=== PATIENT | female | born 1970 ===

== ENCOUNTER → 2020-08-27 08:37 | Outpatient (BNVA) | payer MEDICAID, SELFPAY | PROVIDERS: PCP Family Medicine; Referring Provider Family Medicine; Visit Provider Nurse Practitioner | DX: K59.04 Chronic idiopathic constipation (principal); R11.2 Nausea with vomiting, unspecified; K21.9 Gastro-esophageal reflux disease without esophagitis; Z79.899 Other long term (current) drug therapy | CPT/HCPCS: 99212 ==

== ENCOUNTER → 2020-09-22 07:42 | Outpatient (REF) | payer MEDICAID, SELFPAY ==
--- NOTE | 2020-09-22 07:47 | NM_ITS ---
EXAMINATION: DC RADIONUCLIDE SOLID FOOD GASTRIC EMPTYING 4-HOUR STUDY CLINICAL INFORMATION: Upper abdominal pain. COMPARISON CT scan of the abdomen and pelvis 05/08/2019. TECHNIQUE: A standard meal consisting of 4 oz of Egg Beaters brand tagged with 1.0 millicuries Tc-99m Sulfur Colloid, 8 oz water and 1 slice of toast with jelly was administered orally to the patient. Images were obtained using a dual head gamma camera in the anterior and posterior projections over of the stomach immediately post ingestion and at hourly intervals up to 4 hours post ingestion. The anterior and posterior counts at each time interval were averaged using the geometric mean and expressed as percentage of the immediate post ingestion counts. FINDINGS: There is good visualization of activity in the stomach immediately post ingestion. As the study progresses, there is good clearance of activity from the stomach and visualization of progressively increasing small bowel activity. By the end of the study, there is almost no retention noted in the stomach. Retention in the stomach at each time interval was: 1 hour 70% (normal 37%-90%) 2 hours 8% (normal 30%-60%) 3 hours 4% 4 hours not performed DC/DC gastric emptying study IMPRESSION: No abnormal retention of solid food is noted. Gastric emptying is more rapid than normal, a finding of uncertain clinical significance.
== END ==
LOC: HO.NUCMED 07:42
PROVIDERS: Visit Provider Nurse Practitioner
DX: R10.10 Upper abdominal pain, unspecified (principal); R11.2 Nausea with vomiting, unspecified
CPT/HCPCS: 78264; A9541

== ENCOUNTER 2020-09-28 09:41 | Outpatient (REF) | payer MEDICAID, SELFPAY | END 2020-09-28 09:42 | disposition home or self-care (01) | LOC: HO.LAB 09:41 | PROVIDERS: Visit Provider Obstetrics & Gynecology | DX: Z01.419 Encounter for gynecological examination (general) (routine) without abnormal findings (principal); R10.2 Pelvic and perineal pain | CPT/HCPCS: 87086 ==

== ENCOUNTER 2020-10-02 19:08 | Emergency (ER) | payer MEDICAID, SELFPAY ==
[2020-10-02 19:19] VITALS: BP 156/66; PULSE 91; RESP 18; TEMP 36.6; O2SAT 99; BMI 36.4
[2020-10-02 20:25] LABS: Glucose Urine UA NEG (NEG); Leukocyte Esterase Urine NEG (NEG); Nitrite Urine NEG (NEG); Specific Gravity - Urine >= 1.030 (1.005-1.025); Urine Blood TRACE (NEG); Urine Ketones NEG (NEG); Urine Protein NEG (NEG-TRACE)
[2020-10-02 20:27] LABS: Appearance Urine CLEAR; Color Urine YELLOW
[2020-10-02 20:30] LABS: Bacteria Urine TRACE /LPF; Squamous Epithelial Cell Urine 3+ /LPF; WBC Urine 0 /HPF (0-4)
--- NOTE | 2020-10-02 21:25 | CT_ITS ---
EXAMINATION: CT ABDOMEN AND PELVIS WITHOUT CONTRAST CLINICAL INFORMATION: Right-sided flank pain COMPARISON: 05/08/2019 TECHNIQUE: Multidetector volumetric imaging was performed from the superior aspect of the liver through the pubic symphysis. Sagittal and coronal reformatted images were obtained on the technologist's workstation. This CT examination was performed using dose optimization techniques as appropriate, variously including the following: *Automated exposure control *Adjustment of mA and/or kV according to patient size (this includes techniques or standardized protocols for targeted exams where dose is matched to indication/reason for exam; i.e. extremities or head) *Use of iterative reconstruction technique DLP: 70 mGy-cm FINDINGS: LUNG BASES: The visualized lung bases are unremarkable. LIVER, GALLBLADDER, AND BILIARY TREE: The liver is normal in size, shape, and attenuation. No focal hepatic lesion or biliary ductal dilatation is present. The gallbladder is unremarkable with no evidence of radiopaque gallstones, gallbladder wall thickening, or obvious pericholecystic inflammatory changes. PANCREAS: Unremarkable. SPLEEN: Unremarkable. ADRENAL GLANDS: Unremarkable. KIDNEYS AND URETERS: The kidneys are normal in size, shape, and attenuation. Some barely perceptible calculi are present. The largest on the right measuring under 2 mm in size in the right upper pole and the largest on the left measuring about 1 mm in size and left upper pole. No hydronephrosis or hydroureter. No perinephric stranding. BLADDER: Unremarkable. GASTROINTESTINAL TRACT: The small and large bowel are unremarkable. The appendix is absent, surgically removed. ABDOMINAL WALL: No significant hernia is appreciated. LYMPH NODES: Normal. VASCULAR: Unremarkable. PELVIC VISCERA: Phleboliths are noted in the pelvis. Status post hysterectomy. An abnormal adnexal mass or free intraperitoneal fluid is not seen. OSSEOUS STRUCTURES: Unremarkable. CT/CT abdomen pelvis wo con IMPRESSION: A cause for the patient's right flank pain has not been found. Nonobstructing tiny bilateral renal calculi are present.
--- NOTE | 2020-10-02 21:46 | ED.GENADULT ---
HPI - General Adult General Chief complaint: Abdominal Pain Stated complaint: Abdominal Pain Time Seen by Provider: 10/02/20 21:12 Source: patient Mode of arrival: ambulatory Limitations: no limitations History of Present Illness HPI narrative: patient comes to emergency room complaining of 2 weeks of right-sided flank pain radiating towards the right groin. Patient was hoping that the pain would go away. Patient was seen by her OBGYN for days ago, she was advised to follow up with Urology because there was blood in the urine. Patient states that she has an appointment with Urology for next week, however she could not tolerate the pain. Patient is known to have urethral lithiasis, patient states it feels about the same. MD complaint: Kidney stones Related Data Home Medications Medication Instructions Recorded Confirmed ondansetron HCl 4 mg tablet 4 mg PO Q6H 08/26/20 09/28/20 pantoprazole 40 mg tablet,delayed 40 mg PO BID tab 08/26/20 09/28/20 release Previous Rx's Medication Instructions Recorded ketorolac 10 mg PO TID 5 Days #15 tab 10/02/20 Allergies Allergy/AdvReac Type Severity Reaction Status Date / Time citalopram [From Celexa] AdvReac Mild ANXIETY Verified 10/02/20 19:18 divalproex sodium AdvReac Mild ANXIETY/JUM Verified 10/02/20 19:18 [From Depakote] PY olanzapine [From Zyprexa] AdvReac Mild ANXIETY Verified 10/02/20 19:18 paroxetine [From Paxil] AdvReac Mild ANXIETY Verified 10/02/20 19:18 Review of Systems Review of Systems: Constitutional : No Weight loss, No Fever, No Chills, No Night Sweats, No Fatigue, No Malaise ENT/Mouth : No Hearing loss, No Ear Pain, No Nasal Congestion, No Sinus Pain, No Hoarseness, No sore throat, No Rhinorrhea, No Swallowing Difficulty Eyes: No Eye Pain, No Swelling, No Redness, No Foreign Body, No Discharge, No Vision Changes Cardiovascular : No Chest Pain, No SOB, No Dyspnea on Exertion, No Orthopnea, No Edema, No Palpitations Respiratory : No Cough, No Sputum, No Wheezing, No Smoke Exposure, No Dyspnea Gastrointestinal : No Nausea, No Vomiting, No Diarrhea, No Constipation, complaining of right flank pain, radiating towards the right abdominal area and right inguinal area Genitourinary : no irregular bleeding, No Dysuria, No Urinary Frequency, No Hematuria, No Urinary Incontinence, No Urgency, No Flank Pain, No Urinary Flow Changes, No Hesitancy Musculoskeletal : No joint pain, No Myalgias, No Joint Swelling Skin : No Skin Lesions, No rash Neuro : No Weakness, No Numbness, No Paresthesias, No Loss of Consciousness, No Dizziness, No Headache Psych : No Anxiety/Panic, No Depression, No SI/HI/AH/VH, No Social Issues, Heme/Lymph: No Bruising, No Bleeding,No Lymphadenopathy Endocrine : No Polyuria, No Polydipsia, No Temperature Intolerance [facility] Past Medical History Surgical History History of appendectomy History of colonoscopy History of hernia repair History of hysterectomy Hx of endoscopy Family History Family History Father History of colon cancer Mother History of diabetes mellitus Social History Social History Alcohol intake: never Smoking Status: Never smoker Advance Directives: No Advance Directives Information Provided: Yes Sexual orientation: Straight/Heterosexual Gender identity: female Physical Exam Vital Signs: Vital Signs: Last Vital Signs Temp 98.9 F 10/02/20 22:02 Pulse 77 10/02/20 22:02 Resp 16 10/02/20 22:02 BP 129/69 10/02/20 22:02 Pulse Ox 97 10/02/20 22:02 Body Mass Index 36.4 Appearance: Alert. Oriented X3. mild distress, unable to sit comfortably, pacing around the room holding a hand in her right flank Eyes: Pupils equal, round and reactive to light. ENT: Pharynx normal. Neck: Normal inspection. Neck supple. No lymph nodes noted. No crepitus CVS: Normal heart rate and rhythm. Pulses normal. Normal S1 and S2 Respiratory: No respiratory distress. Breath sounds normal. No Wheezing. No rales Abdomen: complaining of mild suprapubic pain and right-sided flank pain Skin: Skin warm and dry. Normal skin color. Normal skin turgor. Extremities: No lower extremity edema. No lower extremity edema. No Lacerations. No Rash Neuro: Oriented X 3. No motor deficit. No sensory deficit. Moving all extermities. No slurred speech. Course Course Course Narrative: patient feeling better with IV treatment, I discussed with the patient the CT scan, it is possible that she may have passed a kidney stone which caused her symptoms. However at this time there is no visible stone traveling down the ureters. Patient has an appointment pending with Dr. Penaloza I discussed with the patient that she has had urine in her blood since approximately 2017. patient instructed that her next urology visit she should discuss with her urologist the possibility of getting a cystoscopy Medical Decision Making Lab Data Result diagrams: 10/02/20 21:49 10/02/20 21:49 Labs: Lab Results 10/02/20 10/02/20 10/02/20 Range/Units 20:19 21:49 21:49 WBC 8.7 (4.8-10.8) X10*3/uL RBC 4.28 (4.20-5.50) X10*6/uL Hgb 12.0 (12.0-16.0) g/dl Hct 37.3 (37-47) % MCV 87.1 (80-98) fL MCH 28.0 (27.0-33.0) pg MCHC 32.2 (31.0-35.0) g/dl RDW 13.2 (11.0-16.0) % Plt Count 305 (160-400) X10*3/uL MPV 8.8 L (9.4-12.3) fL Immature Gran % (Auto) 0.2 (0.0-0.4) % Neut % (Auto) 55.8 (45-73) % Lymph % (Auto) 34.1 (20-40) % [place] % (Auto) 6.8 (2-11) % Eos % (Auto) 2.9 (0-4) % Baso % (Auto) 0.2 (0-2) % Lymph # (Auto) 3.0 (1.2-4.9) X10*3/uL [place] # (Auto) 0.6 (0.1-1.2) X10*3/uL Eos # (Auto) 0.3 (0.0-0.4) X10*3/uL Baso # (Auto) 0.0 (0.0-0.2) X10*3/uL Abs Immat Gran (auto) 0.02 (0.00-0.03) X10*3/uL Absolute Neuts (auto) 4.9 (2.0-8.3) X10*3/uL Absolute Nucleated RBC 0.000 (0.0-0.012) X10*3/uL Nucleated RBC % (auto) 0.0 (0.0-0.2) /100WBC Sodium 137 (135-145) mmol/L Potassium 4.3 (3.3-5.1) mmol/l Chloride 102 (96-108) mmol/L Carbon Dioxide 28 (22-29) mmol/L Anion Gap 11 L (12-20) BUN 11 (9-16) mg/dL Creatinine 0.81 (0.5-1.4) mg/dL Estim Creat Clear Calc 102.7 Estimated GFR > 60 Random Glucose 101 (60-115) mg/dL Calcium 9.7 (8.4-10.2) mg/dL Total Bilirubin 0.4 (0.0-1.0) mg/dL Direct Bilirubin < 0.2 (0.0-0.5) mg/dL AST 13 (5-31) U/L ALT 15 (0-31) U/L Alkaline Phosphatase 78 (39-117) U/L Total Protein 7.0 (6.5-8.0) g/dL Albumin 4.1 (3.5-5.0) g/dL Urine Color YELLOW Urine Appearance CLEAR Urine pH 6.0 (5.0-8.0) Ur Specific [place] >= 1.030 H (1.005-1.025) Urine Protein NEG (NEG-TRACE) MG/DL Urine Glucose (UA) NEG (NEG) MG/DL Urine Ketones NEG (NEG) MG/DL Urine Blood TRACE (NEG) Urine Nitrite NEG (NEG) Ur Leukocyte Esterase NEG (NEG) Urine RBC 1-4 (0) /HPF Urine WBC 0 (0-4) /HPF Ur Squamous Epith Cells 3+ /LPF Urine Bacteria TRACE /LPF Urine Test NEGATIVE (NEGATIVE) Discharge Plan Discharge Clinical Impression: Flank pain, Abdominal pain Patient Disposition: Home, Self-Care Instructions: Flank Pain (ED) Prescriptions: New ketorolac 10 mg tablet 10 mg PO TID 5 Days Qty: 15 RF: 0 No Action pantoprazole [Protonix] 40 mg tablet,delayed release (DR/EC) 40 mg PO BID RF: 0 ondansetron HCl [Zofran] 4 mg tablet 4 mg PO Q6H RF: 0
[2020-10-02 21:53] LABS: MANUAL DIFF FLAG NO
[2020-10-02] MEDS: ondansetron HCL 4 MG/2 ML VIAL IVPUSH (21:54)
[2020-10-02] MEDS: Ketorolac Tromethamine 30 MG/ML VIAL IVPUSH (21:54)
[2020-10-02 21:58] LABS: Basophils Percent Auto 0.2 % (0-2); Eosinophils Absolute Auto 0.3 X10*3/uL (0.0-0.4); Eosinophils Percent Auto 2.9 % (0-4); Hematocrit 37.3 % (37-47); Imm Gran Abs Auto 0.02 X10*3/uL (0.00-0.03); Imm Gran Pct Auto 0.2 % (0.0-0.4); Lymphocytes Percent Auto 34.1 % (20-40); Mean Corpuscular HGB Conc 32.2 g/dl (31.0-35.0); Mean Corpuscular Volume 87.1 fL (80-98); Mean Platelet Volume 8.8 fL (9.4-12.3); Monocytes Absolute Auto 0.6 X10*3/uL (0.1-1.2); Monocytes Percent Auto 6.8 % (2-11); Neutrophils Absolute Auto 4.9 X10*3/uL (2.0-8.3); Neutrophils Percent Auto 55.8 % (45-73); Platelet Count 305 X10*3/uL (160-400); Red Blood Count 4.28 X10*6/uL (4.20-5.50); Red Cell Distribution Width 13.2 % (11.0-16.0); White Blood Count 8.7 X10*3/uL (4.8-10.8)
[2020-10-02 22:02] VITALS: BP 129/69; PULSE 77; RESP 16; TEMP 37.2; O2SAT 97
[2020-10-02 22:16] LABS: UPreg QC Valid YES; Urine Pregnancy NEGATIVE (NEGATIVE)
[2020-10-02 22:21] LABS: Alanine Aminotransferase 15 U/L (0-31); Albumin Level 4.1 g/dL (3.5-5.0); Alkaline Phosphatase 78 U/L (39-117); Anion Gap 11 (12-20); Aspartate Amino Transferase 13 U/L (5-31); Bilirubin Direct < 0.2 mg/dL (0.0-0.5); Bilirubin Total 0.4 mg/dL (0.0-1.0); Blood Urea Nitrogen 11 mg/dL (9-16); Calcium 9.7 mg/dL (8.4-10.2); Carbon Dioxide 28 mmol/L (22-29); Chloride 102 mmol/L (96-108); Creatinine Clr Calc Pharmacy 102.7; Estimated Glomerular Filt Rate > 60; Glucose Random 101 mg/dL (60-115); Potassium 4.3 mmol/l (3.3-5.1); Sodium 137 mmol/L (135-145)
== END 2020-10-02 23:54 | disposition home or self-care (01) ==
PROVIDERS: Emergency Provider Emergency Medicine; PCP Family Medicine
DX: R10.9 Unspecified abdominal pain (principal); Z87.442 Personal history of urinary calculi
CPT/HCPCS: 36415; 74176; 80048; 80076; 81001; 81025; 85025; 96374; 96375; 99284; J1885; J2405

== ENCOUNTER 2020-10-19 13:47 | Outpatient (REF) | payer MEDICAID, SELFPAY ==
--- NOTE | 2020-10-19 13:53 | US_ITS ---
EXAMINATION: US PELVIC COMPLETE US TRANSVAGINAL CLINICAL INFORMATION: Pelvic pain. COMPARISON: CT abdomen and pelvis without contrast 10/02/2020 TECHNIQUE: Transabdominal and transvaginal ultrasound of the pelvis is performed. FINDINGS: The uterus has been surgically removed and not visualized. The right ovary measures 2.6 x 1.8 x 2.1 cm and volume 5.3 mL. There are 2 anechoic cysts measuring 1.7 x 1.1 x 1.2 cm and 2.0 x 1.7 x 1.9 cm. Previously, the right ovary measured 2.6 x 1.5 x 2.9 cm. The left ovary measures 2.6 x 1.7 x 2.0 cm and volume 4.7 mL. There is an anechoic cyst measuring 2.5 x 1.1 x 1.6 cm. Previously, the left ovary measured 2.3 x 1.3 x 2.1 cm. There is no free fluid seen in the pelvis. US/US pelvic complete IMPRESSION: The uterus is not visualized consistent with history of hysterectomy. There are bilateral ovarian cysts. No solid mass seen in the adnexa. There is no free fluid in cul-de-sac.
--- NOTE | 2020-10-19 13:53 | US_ITS ---
EXAMINATION: US PELVIC COMPLETE US TRANSVAGINAL CLINICAL INFORMATION: Pelvic pain. COMPARISON: CT abdomen and pelvis without contrast 10/02/2020 TECHNIQUE: Transabdominal and transvaginal ultrasound of the pelvis is performed. FINDINGS: The uterus has been surgically removed and not visualized. The right ovary measures 2.6 x 1.8 x 2.1 cm and volume 5.3 mL. There are 2 anechoic cysts measuring 1.7 x 1.1 x 1.2 cm and 2.0 x 1.7 x 1.9 cm. Previously, the right ovary measured 2.6 x 1.5 x 2.9 cm. The left ovary measures 2.6 x 1.7 x 2.0 cm and volume 4.7 mL. There is an anechoic cyst measuring 2.5 x 1.1 x 1.6 cm. Previously, the left ovary measured 2.3 x 1.3 x 2.1 cm. There is no free fluid seen in the pelvis. US/US transvaginal IMPRESSION: The uterus is not visualized consistent with history of hysterectomy. There are bilateral ovarian cysts. No solid mass seen in the adnexa. There is no free fluid in cul-de-sac.
== END 2020-10-19 13:48 | disposition home or self-care (01) ==
LOC: HO.US 13:47
PROVIDERS: Visit Provider Obstetrics & Gynecology
DX: R10.2 Pelvic and perineal pain (principal)
CPT/HCPCS: 76830; 76856

== ENCOUNTER → 2020-10-27 15:29 | Outpatient (BNVA) | payer MEDICAID, SELFPAY | PROVIDERS: PCP Family Medicine; Visit Provider Nurse Practitioner | DX: Z76.89 Persons encountering health services in other specified circumstances (principal) ==

== ENCOUNTER → 2020-11-04 10:57 | Outpatient (BNVA) | payer MEDICAID, SELFPAY | PROVIDERS: PCP Family Medicine; Visit Provider Obstetrics & Gynecology | DX: Z76.89 Persons encountering health services in other specified circumstances (principal) ==

== ENCOUNTER 2021-01-17 09:00 | Outpatient (RCR) | payer MEDICAID, SELFPAY | END 2021-02-04 15:13 | disposition other institution (70) | LOC: HO.PT 09:00 | PROVIDERS: PCP Family Medicine; Visit Provider Family Medicine | DX: M75.41 Impingement syndrome of right shoulder (principal) | CPT/HCPCS: 97110; 97112; 97140; 97161 ==

== ENCOUNTER 2021-02-28 16:08 | Emergency (ER) | payer MEDICAID, SELFPAY ==
--- NOTE | ~2021-02-28 | CT_ITS ---
EXAMINATION: CT ABDOMEN AND PELVIS WITHOUT CONTRAST CLINICAL INFORMATION: Left flank pain with history of kidney stones COMPARISON: None TECHNIQUE: Multidetector volumetric imaging was performed from the superior aspect of the liver through the pubic symphysis. Sagittal and coronal reformatted images were obtained on the technologist's workstation. This CT examination was performed using dose optimization techniques as appropriate, variously including the following: *Automated exposure control *Adjustment of mA and/or kV according to patient size (this includes techniques or standardized protocols for targeted exams where dose is matched to indication/reason for exam; i.e. extremities or head) *Use of iterative reconstruction technique DLP: 796 mGy-cm FINDINGS: LUNG BASES: Some new bibasilar atelectasis is present. LIVER, GALLBLADDER, AND BILIARY TREE: The liver is normal in size, shape, and attenuation. No focal hepatic lesion or biliary ductal dilatation is present. The gallbladder is unremarkable with no evidence of radiopaque gallstones, gallbladder wall thickening, or obvious pericholecystic inflammatory changes. PANCREAS: Unremarkable. SPLEEN: Unremarkable. ADRENAL GLANDS: Unremarkable. KIDNEYS AND URETERS: The kidneys are normal in size, shape, and attenuation. A few barely perceptible punctate calcifications bilaterally. No hydronephrosis, hydroureter, or ureteral calculi seen. No perinephric stranding. BLADDER: Unremarkable. GASTROINTESTINAL TRACT: The small and large bowel are unremarkable. The appendix is is not seen and may have been removed. ABDOMINAL WALL: No significant hernia is appreciated. LYMPH NODES: No retroperitoneal lymphadenopathy. VASCULAR: Unremarkable. PELVIC VISCERA: Patient appears to be status post hysterectomy. An abnormal adnexal mass or free intraperitoneal fluid is not seen. OSSEOUS STRUCTURES: Unremarkable. CT/CT abdomen pelvis wo con IMPRESSION: A cause for the patient's left flank pain has not been found. Again seen are some tiny barely perceptible bilateral nonobstructing intrarenal calculi.
[2021-02-28 16:23] VITALS: BP 119/87; PULSE 99; RESP 17; TEMP 36.6; O2SAT 97; BMI 38.2
[2021-02-28 19:47] LABS: MANUAL DIFF FLAG NO
[2021-02-28 19:49] LABS: Basophils Percent Auto 0.3 % (0-2); Eosinophils Absolute Auto 0.1 X10*3/uL (0.0-0.4); Eosinophils Percent Auto 0.6 % (0-4); Hematocrit 41.4 % (37-47); Imm Gran Abs Auto 0.03 X10*3/uL (0.00-0.03); Imm Gran Pct Auto 0.3 % (0.0-0.4); Lymphocytes Absolute Auto 2.9 X10*3/uL (1.2-4.9); Lymphocytes Percent Auto 25.2 % (20-40); Mean Corpuscular HGB Conc 31.4 g/dl (31.0-35.0); Mean Platelet Volume 8.6 fL (9.4-12.3); Monocytes Absolute Auto 0.8 X10*3/uL (0.1-1.2); Monocytes Percent Auto 7.1 % (2-11); Neutrophils Absolute Auto 7.5 X10*3/uL (2.0-8.3); Neutrophils Percent Auto 66.5 % (45-73); Platelet Count 362 X10*3/uL (160-400); Red Blood Count 4.65 X10*6/uL (4.20-5.50); Red Cell Distribution Width 13.2 % (11.0-16.0); White Blood Count 11.3 X10*3/uL (4.8-10.8)
[2021-02-28 19:51] LABS: Glucose Urine UA NEG (NEG); Leukocyte Esterase Urine NEG (NEG); Nitrite Urine NEG (NEG); Urine Blood TRACE (NEG); Urine Ketones NEG (NEG); Urine Protein NEG (NEG-TRACE)
[2021-02-28 19:53] LABS: Appearance Urine CLEAR; Color Urine YELLOW
--- NOTE | 2021-02-28 20:02 | PC.NURSE ---
Pt moved from the waiting room into room 20. Labs and UA obtained previously. Pt primarily Ukrainian speaking only, resting in bed, awaiting primary MD melendrez.
[2021-02-28 20:03] LABS: Squamous Epithelial Cell Urine TRACE /LPF; WBC Urine 0-2 /HPF (0-4)
[2021-02-28 20:08] LABS: Alanine Aminotransferase 15 U/L (0-31); Albumin Level 4.3 g/dL (3.5-5.0); Alkaline Phosphatase 82 U/L (39-117); Anion Gap 11 (12-20); Aspartate Amino Transferase 14 U/L (5-31); Bilirubin Total 0.3 mg/dL (0.0-1.0); Blood Urea Nitrogen 15 mg/dL (9-16); Calcium 9.7 mg/dL (8.4-10.2); Carbon Dioxide 30 mmol/L (22-29); Chloride 102 mmol/L (96-108); Creatinine Clr Calc Pharmacy 78.3; Estimated Glomerular Filt Rate 54; Glucose Random 101 mg/dL (60-115); Potassium 4.2 mmol/L (3.3-5.1); Sodium 139 mmol/L (135-145); Total Protein 7.6 g/dL (6.5-8.0)
[2021-02-28 20:34] VITALS: BP 119/68; PULSE 74; RESP 16; O2SAT 99
--- NOTE | 2021-02-28 20:39 | PC.NURSE ---
IV established, VSS. Pt awaiting primary MD eval.
--- NOTE | 2021-02-28 21:01 | ED.ABDPAIN ---
HPI - Abdominal Pain General Chief Complaint: Abdominal Pain Stated Complaint: flank pain Time Seen by Provider: 02/28/21 20:49 Source: patient Mode of arrival: ambulatory Limitations: no limitations History of Present Illness HPI narrative: Patient comes to emergency room complaining left flank pain and diffuse abdominal cramping. Patient states that it started yesterday afternoon. Initially in triage, patient stated that she has had dysuria, however she denied dysuria and hematuria to me. Patient states that the color of the urine is different, states she is unable to explain how it looks, denies hematuria, denies sediments. Patient denies fever and chills MD elicited complaint: flank pain Related Data Home Medications Medication Instructions Recorded Confirmed ondansetron HCl 4 mg tablet 4 mg PO Q6H 08/26/20 11/04/20 pantoprazole 40 mg tablet,delayed 40 mg PO BID tab 08/26/20 11/04/20 release Previous Rx's Medication Instructions Recorded ketorolac 10 mg PO TID 5 Days #15 tab 10/02/20 dicyclomine 20 mg tablet 20 mg PO QID #120 tab 10/27/20 linaclotide 72 mcg capsule 72 mcg PO QAM #30 cap 10/27/20 hyoscyamine sulfate 0.25 mg PO QID PRN #10 tab 02/28/21 Allergies Allergy/AdvReac Type Severity Reaction Status Date / Time citalopram [From Celexa] AdvReac Mild ANXIETY Verified 02/28/21 16:23 divalproex sodium AdvReac Mild ANXIETY/JUM Verified 02/28/21 16:23 [From Depakote] PY olanzapine [From Zyprexa] AdvReac Mild ANXIETY Verified 02/28/21 16:23 paroxetine [From Paxil] AdvReac Mild ANXIETY Verified 02/28/21 16:23 Review of Systems Review of Systems Constitutional : No Weight loss, No Fever, No Chills, No Night Sweats, No Fatigue, No Malaise ENT/Mouth : No Hearing loss, No Ear Pain, No Nasal Congestion, No Sinus Pain, No Hoarseness, No sore throat, No Rhinorrhea, No Swallowing Difficulty Eyes: No Eye Pain, No Swelling, No Redness, No Foreign Body, No Discharge, No Vision Changes Cardiovascular : No Chest Pain, No SOB, No Dyspnea on Exertion, No Orthopnea, No Edema, No Palpitations Respiratory : No Cough, No Sputum, No Wheezing, No Smoke Exposure, No Dyspnea Gastrointestinal : Complaining of Nausea, No Vomiting, No Diarrhea, No Constipation, complaining left upper and lower quadrant pain and left flank pain, No Hematochezia, No Melena Genitourinary : no irregular bleeding, No Dysuria, No Urinary Frequency, No Hematuria, No Urinary Incontinence, No Urgency, No Flank Pain, No Urinary Flow Changes, No Hesitancy Musculoskeletal : No joint pain, No Myalgias, No Joint Swelling Skin : No Skin Lesions, No rash Neuro : No Weakness, No Numbness, No Paresthesias, No Loss of Consciousness, No Dizziness, No Headache Psych : No Anxiety/Panic, No Depression, No SI/HI/AH/VH, No Social Issues, Heme/Lymph: No Bruising, No Bleeding,No Lymphadenopathy Endocrine : No Polyuria, No Polydipsia, No Temperature Intolerance Physical Exam Vital Signs: Vital Signs: Last Vital Signs Temp 97.9 F 02/28/21 16:23 Pulse 74 02/28/21 20:34 Resp 16 02/28/21 20:34 BP 119/68 02/28/21 20:34 Pulse Ox 99 02/28/21 20:34 Body Mass Index 38.2 Appearance: Alert. Oriented X3. No acute distress. Eyes: Pupils equal, round and reactive to light. ENT: Pharynx normal. Neck: Normal inspection. Neck supple. No lymph nodes noted. No crepitus CVS: Normal heart rate and rhythm. Pulses normal. Normal S1 and S2 Respiratory: No respiratory distress. Breath sounds normal. No Wheezing. No rales Abdomen: Soft , moderate tenderness to deep palpation on left upper and lower quadrant, positive CVA tenderness on the left side. No rigidity. No distention. Skin: Skin warm and dry. Normal skin color. Normal skin turgor. Extremities: No lower extremity edema. No lower extremity edema. No Lacerations. No Rash Neuro: Oriented X 3. No motor deficit. No sensory deficit. Moving all extermities. No slurred speech. Course Course Course Narrative: Patient states that she feels better after the IV medication Patient's urine is negative for UTI, CT scan unremarkable. Patient likely having a mild viral infection causing her to have abdominal cramping. MDM - Abdominal Pain Lab Data Result diagrams: 02/28/21 19:37 02/28/21 19:37 Labs: Lab Results 02/28/21 02/28/21 02/28/21 Range/Units 19:37 19:37 19:37 WBC 11.3 H (4.8-10.8) X10*3/uL RBC 4.65 (4.20-5.50) X10*6/uL Hgb 13.0 (12.0-16.0) g/dl Hct 41.4 (37-47) % MCV 89.0 (80-98) fL MCH 28.0 (27.0-33.0) pg MCHC 31.4 (31.0-35.0) g/dl RDW 13.2 (11.0-16.0) % Plt Count 362 (160-400) X10*3/uL MPV 8.6 L (9.4-12.3) fL Immature Gran % (Auto) 0.3 (0.0-0.4) % Neut % (Auto) 66.5 (45-73) % Lymph % (Auto) 25.2 (20-40) % [place] % (Auto) 7.1 (2-11) % Eos % (Auto) 0.6 (0-4) % Baso % (Auto) 0.3 (0-2) % Lymph # (Auto) 2.9 (1.2-4.9) X10*3/uL [place] # (Auto) 0.8 (0.1-1.2) X10*3/uL Eos # (Auto) 0.1 (0.0-0.4) X10*3/uL Baso # (Auto) 0.0 (0.0-0.2) X10*3/uL Abs Immat Gran (auto) 0.03 (0.00-0.03) X10*3/uL Absolute Neuts (auto) 7.5 (2.0-8.3) X10*3/uL Absolute Nucleated RBC 0.000 (0.0-0.012) X10*3/uL Nucleated RBC % (auto) 0.0 (0.0-0.2) /100WBC Hold Blue Top SEE NOTE Sodium 139 (135-145) mmol/L Potassium 4.2 (3.3-5.1) mmol/L Chloride 102 (96-108) mmol/L Carbon Dioxide 30 H (22-29) mmol/L Anion Gap 11 L (12-20) BUN 15 (9-16) mg/dL Creatinine 1.09 (0.5-1.4) mg/dL Estim Creat Clear Calc 78.3 Estimated GFR 54 Random Glucose 101 (60-115) mg/dL Calcium 9.7 (8.4-10.2) mg/dL Total Bilirubin 0.3 (0.0-1.0) mg/dL AST 14 (5-31) U/L ALT 15 (0-31) U/L Alkaline Phosphatase 82 (39-117) U/L Total Protein 7.6 (6.5-8.0) g/dL Albumin 4.3 (3.5-5.0) g/dL Urine Color Urine Appearance Urine pH (5.0-8.0) Ur Specific [place] (1.005-1.025) Urine Protein (NEG-TRACE) MG/DL Urine Glucose (UA) (NEG) MG/DL Urine Ketones (NEG) MG/DL Urine Blood (NEG) Urine Nitrite (NEG) Ur Leukocyte Esterase (NEG) Urine RBC (0) /HPF Urine WBC (0-4) /HPF Ur Squamous Epith Cells /LPF Urine Bacteria /LPF Urine Test (NEGATIVE) 02/28/21 02/28/21 Range/Units 19:43 19:43 WBC (4.8-10.8) X10*3/uL RBC (4.20-5.50) X10*6/uL Hgb (12.0-16.0) g/dl Hct (37-47) % MCV (80-98) fL MCH (27.0-33.0) pg MCHC (31.0-35.0) g/dl RDW (11.0-16.0) % Plt Count (160-400) X10*3/uL MPV (9.4-12.3) fL Immature Gran % (Auto) (0.0-0.4) % Neut % (Auto) (45-73) % Lymph % (Auto) (20-40) % [place] % (Auto) (2-11) % Eos % (Auto) (0-4) % Baso % (Auto) (0-2) % Lymph # (Auto) (1.2-4.9) X10*3/uL [place] # (Auto) (0.1-1.2) X10*3/uL Eos # (Auto) (0.0-0.4) X10*3/uL Baso # (Auto) (0.0-0.2) X10*3/uL Abs Immat Gran (auto) (0.00-0.03) X10*3/uL Absolute Neuts (auto) (2.0-8.3) X10*3/uL Absolute Nucleated RBC (0.0-0.012) X10*3/uL Nucleated RBC % (auto) (0.0-0.2) /100WBC Hold Blue Top Sodium (135-145) mmol/L Potassium (3.3-5.1) mmol/L Chloride (96-108) mmol/L Carbon Dioxide (22-29) mmol/L Anion Gap (12-20) BUN (9-16) mg/dL Creatinine (0.5-1.4) mg/dL Estim Creat Clear Calc Estimated GFR Random Glucose (60-115) mg/dL Calcium (8.4-10.2) mg/dL Total Bilirubin (0.0-1.0) mg/dL AST (5-31) U/L ALT (0-31) U/L Alkaline Phosphatase (39-117) U/L Total Protein (6.5-8.0) g/dL Albumin (3.5-5.0) g/dL Urine Color YELLOW Urine Appearance CLEAR Urine pH 6.0 (5.0-8.0) Ur Specific [place] 1.020 (1.005-1.025) Urine Protein NEG (NEG-TRACE) MG/DL Urine Glucose (UA) NEG (NEG) MG/DL Urine Ketones NEG (NEG) MG/DL Urine Blood TRACE (NEG) Urine Nitrite NEG (NEG) Ur Leukocyte Esterase NEG (NEG) Urine RBC 1-4 (0) /HPF Urine WBC 0-2 (0-4) /HPF Ur Squamous Epith Cells TRACE /LPF Urine Bacteria NONE /LPF Urine Test NEGATIVE (NEGATIVE) Imaging Data CT scan - abdomen: Radiologist's impression: FINDINGS: LUNG BASES: Some new bibasilar atelectasis is present. LIVER, GALLBLADDER, AND BILIARY TREE: The liver is normal in size, shape, and attenuation. No focal hepatic lesion or biliary ductal dilatation is present. The gallbladder is unremarkable with no evidence of radiopaque gallstones, gallbladder wall thickening, or obvious pericholecystic inflammatory changes. PANCREAS: Unremarkable. SPLEEN: Unremarkable. ADRENAL GLANDS: Unremarkable. KIDNEYS AND URETERS: The kidneys are normal in size, shape, and attenuation. A few barely perceptible punctate calcifications bilaterally. No hydronephrosis, hydroureter, or ureteral calculi seen. No perinephric stranding. BLADDER: Unremarkable. GASTROINTESTINAL TRACT: The small and large bowel are unremarkable. The appendix is is not seen and may have been removed. ABDOMINAL WALL: No significant hernia is appreciated. LYMPH NODES: No retroperitoneal lymphadenopathy. VASCULAR: Unremarkable. PELVIC VISCERA: Patient appears to be status post hysterectomy. An abnormal adnexal mass or free intraperitoneal fluid is not seen. OSSEOUS STRUCTURES: Unremarkable. CT/CT abdomen pelvis wo con IMPRESSION: A cause for the patient's left flank pain has not been found. Again seen are some tiny barely perceptible bilateral nonobstructing intrarenal calculi. Discharge Plan Discharge Clinical Impression: Acute left flank pain Abdominal pain Qualifiers: Abdominal location: unspecified location Qualified Code(s): R10.9 - Unspecified abdominal pain Patient Disposition: Home, Self-Care Instructions: Abdominal Pain (ED), Flank Pain (ED) Additional Instructions: Please follow-up with your primary care physician tomorrow. If you have any worsening or new symptoms, please return to the emergency room or call 911 Prescriptions: New hyoscyamine sulfate 0.125 mg tablet 0.25 mg PO QID PRN (Reason: dyspepsia) Qty: 10 RF: 0 No Action ketorolac 10 mg tablet 10 mg PO TID 5 Days Qty: 15 RF: 0 pantoprazole [Protonix] 40 mg tablet,delayed release (DR/EC) 40 mg PO BID RF: 0 ondansetron HCl [Zofran] 4 mg tablet 4 mg PO Q6H RF: 0 dicyclomine 20 mg tablet 20 mg PO QID Qty: 120 RF: 4 Linzess 72 mcg capsule 72 mcg PO QAM Qty: 30 RF: 4 PMFSH Past Medical History Surgical History History of appendectomy History of colonoscopy History of hernia repair History of hysterectomy Hx of endoscopy Family History Family History Father History of colon cancer Mother History of diabetes mellitus Social History Social History Alcohol intake: never Smoking Status: Never smoker Advance Directives: No Advance Directives Information Provided: No Sexual orientation: Straight/Heterosexual Gender identity: female
[2021-02-28 21:11] LABS: UPreg QC Valid YES; Urine Pregnancy NEGATIVE (NEGATIVE)
[2021-02-28] MEDS: Ketorolac Tromethamine 30 MG/ML VIAL IVPUSH (21:14)
[2021-02-28] MEDS: ondansetron HCL 4 MG/2 ML VIAL IVPUSH (21:14)
--- NOTE | 2021-02-28 21:16 | PC.NURSE ---
Pt medicated per DEC. Awaiting results of the CT. Continue to monitor.
[2021-02-28 23:02] VITALS: BP 132/86; PULSE 75; RESP 16; O2SAT 98
== END 2021-02-28 23:03 | disposition home or self-care (01) ==
PROVIDERS: Emergency Provider Emergency Medicine; PCP Family Medicine
DX: R10.9 Unspecified abdominal pain (principal); Z79.899 Other long term (current) drug therapy
CPT/HCPCS: 36415; 74176; 80053; 81001; 81025; 85025; 96374; 96375; 99284; J1885; J2405

== ENCOUNTER 2021-03-15 15:22 | Outpatient (REF) | payer MEDICAID, SELFPAY ==
--- NOTE | ~2021-03-15 | US_ITS ---
EXAMINATION: US RETROPERITONEAL LIMITED (RENAL ONLY) CLINICAL INFORMATION: Calculus of kidney. COMPARISON: CT abdomen and pelvis 02/28/2021. Renal ultrasound 11/06/2019 and 04/21/2019. X-ray abdomen KUB 12/30/2018. TECHNIQUE: Real-time imaging of the kidneys. FINDINGS: RIGHT KIDNEY: 11.9 x 4.6 x 3.7 cm (SAG x AP x TRV). The kidney is normal in size, contour, and echogenicity. Renal cortical thickness is normal. No calculi or focal parenchymal lesions. No hydronephrosis. LEFT KIDNEY: 10.1 x 5.1 x 4.8 cm (SAG x AP x TRV). The kidney is normal in size, contour, and echogenicity. Renal cortical thickness is normal. No calculi or focal parenchymal lesions. No hydronephrosis. US/US renal BI IMPRESSION: No stone appreciated by ultrasound.
== END 2021-03-15 15:23 | disposition home or self-care (01) ==
LOC: HO.US 15:22
PROVIDERS: Visit Provider Family Medicine
DX: N20.0 Calculus of kidney (principal)
CPT/HCPCS: 76775

== ENCOUNTER 2021-04-25 14:02 | Outpatient (REF) | payer MEDICAID, SELFPAY ==
--- NOTE | ~2021-04-25 | US_ITS ---
EXAMINATION: US RETROPERITONEAL LIMITED (RENAL ONLY) CLINICAL INFORMATION: Stones. COMPARISON: Ultrasound renal 03/15/2021 and 11/06/2019. CT abdomen pelvis 02/28/2021. X-ray KUB 12/30/2018 and 05/22/2017. TECHNIQUE: Real-time imaging of the kidneys. FINDINGS: RIGHT KIDNEY: 11.4 x 5.1 x 5.2 cm (SAG x AP x TRV). The kidney is normal in size, contour, and echogenicity. Renal cortical thickness is normal. No calculi or focal parenchymal lesions. No hydronephrosis. There is an area of cortical thinning in the upper pole probably representing a parenchymal junctional defect. LEFT KIDNEY: 11.5 x 5.1 x 5.0 cm (SAG x AP x TRV). The kidney is normal in size, contour, and echogenicity. Renal cortical thickness is normal. No calculi or focal parenchymal lesions. No hydronephrosis. US/US renal BI IMPRESSION: No stone seen by ultrasound.
== END 2021-04-25 14:03 | disposition home or self-care (01) ==
LOC: HO.US 14:02
PROVIDERS: Visit Provider Urology
DX: Z87.442 Personal history of urinary calculi (principal)
CPT/HCPCS: 76775

== ENCOUNTER → 2021-06-17 13:56 | Outpatient (BNVA) | payer MEDICAID, SELFPAY | PROVIDERS: PCP Family Medicine; Visit Provider Urology ==

== ENCOUNTER 2021-08-02 16:05 | Outpatient (REF) | payer MEDICAID, SELFPAY ==
--- NOTE | ~2021-08-02 | MM_ITS ---
EXAMINATION: MM SCREENING DIGITAL BREAST TOMOSYNTHESIS, BILATERAL CLINICAL INFORMATION: Screening. Asymptomatic. The lifetime risk of breast cancer based on the Tyrer-Cuzick Model is 11%. COMPARISON: Mammography: 02/25/2018, 02/05/2017, 01/07/2016, 12/30/2015 TECHNIQUE: Digital breast tomosynthesis is performed in both the craniocaudal and mediolateral oblique views along with computer-aided detection (CAD). Synthesized 2D images are generated from the tomosynthesis. FINDINGS: There are scattered areas of fibroglandular density (ACR BI-RADS breast composition Category b). There are no significant masses, abnormal calcifications, or other abnormalities. Parenchymal pattern is similar to prior exam. Oval parenchymal asymmetry posterior outer right breast on CC view is stable. There are benign regional rim calcifications anterior upper outer left breast. The axilla and skin contours are unremarkable. MM/MM tomosynthesis screening BI IMPRESSION: No mammographic evidence of malignancy. ASSESSMENT: BI-RADS 2: Benign RECOMMENDATION: Routine annual mammography screening. This patient's information was entered into a reminder system with a target due date for their next mammogram.
== END 2021-08-02 16:06 | disposition home or self-care (01) ==
LOC: HO.MAMMO 16:05
PROVIDERS: Visit Provider Family Medicine
DX: Z12.31 Encounter for screening mammogram for malignant neoplasm of breast (principal)
CPT/HCPCS: 77063; 77067

== ENCOUNTER 2021-08-03 21:36 | Emergency (ER) | payer MEDICAID, SELFPAY ==
[2021-08-03 22:03] VITALS: BP 151/89; PULSE 85; RESP 20; TEMP 35.8; O2SAT 100; BMI 37.8
--- NOTE | 2021-08-03 22:40 | ED.BACK ---
HPI - Back Pain/Injury General Chief Complaint: Back Pain/Injury Stated Complaint: Lower back pain Time Seen by Provider: 08/03/21 22:27 Source: patient Mode of arrival: ambulatory Limitations: no limitations History of Present Illness HPI Narrative: 51-year-old patient presents to ED for right-sided back pain radiating down right leg. Patient states history of chronic back pain and history of nerve impingement. Patient is receiving phsycial therapy and in the past has had the steroid injection to the spine. Patient denies any urinary/bowel incontinence. Patient denies any dragging of feet or paralysis of lower extremities. Patient denies any abdominal pain, nausea, vomiting, fever, chills, or flank pain. Patient denies any dysuria, hematuria, vaginal bleeding, vaginal discharge. Patient denies any history of IV drug use or history of HIV. Patient denies any recent trauma. MD elicited complaint: back pain Related Data Home Medications Medication Instructions Recorded Confirmed ondansetron HCl 4 mg tablet 4 mg PO Q6H 08/26/20 11/04/20 (Zofran) pantoprazole 40 mg tablet,delayed 40 mg PO BID tab 08/26/20 11/04/20 release (Protonix) baclofen 10 mg tablet 10 mg PO TID PRN 06/17/21 cetirizine 10 mg tablet 10 mg PO DAILY 06/17/21 cholecalciferol (vitamin D3) 25 25 mcg PO QAM 06/17/21 mcg (1,000 unit) tablet doxepin 10 mg capsule 10 mg PO BEDTIME 06/17/21 fluticasone propionate 230 2 puff INHALATION 06/17/21 mcg-salmeterol 21 mcg/actuation HFA inhaler (Advair HFA) montelukast 10 mg tablet 10 mg PO QPM 06/17/21 Previous Rx's Medication Instructions Recorded ketorolac 10 mg tablet 10 mg PO TID 5 Days #15 tab 10/02/20 dicyclomine 20 mg tablet 20 mg PO QID #120 tab 10/27/20 linaclotide 72 mcg capsule 72 mcg PO QAM #30 cap 10/27/20 (Linzess) hyoscyamine sulfate 0.125 mg tablet 0.25 mg PO QID PRN #10 tab 02/28/21 ketorolac 10 mg tablet 10 mg PO Q6H PRN 5 Days #20 tab 08/03/21 prednisone 20 mg tablet 60 mg PO DAILY 5 Days #15 tab 08/03/21 Allergies Allergy/AdvReac Type Severity Reaction Status Date / Time citalopram [From Celexa] AdvReac Mild ANXIETY Verified 06/17/21 13:57 divalproex sodium AdvReac Mild ANXIETY/JUM Verified 06/17/21 13:57 [From Depakote] PY olanzapine [From Zyprexa] AdvReac Mild ANXIETY Verified 06/17/21 13:57 paroxetine [From Paxil] AdvReac Mild ANXIETY Verified 06/17/21 13:57 Review of Systems Review of Systems: Yes all other systems are reviewed and are negative Constitutional: Constitutional: Reports as per HPI and Reports no additional constitutional complaints Eyes: Eyes: Reports as per HPI and Reports no additional eye complaints ENT: Reports system reviewed and no additional complaints, except as documented and Reports as per HPI Cardiovascular: Cardiovascular: Reports as per HPI and Reports no additional cardiovascular complaints Respiratory: Respiratory: Reports as per HPI and Reports no additional respiratory complaints Gastrointestinal: Gastrointestinal: Reports as per HPI and Reports no additional gastrointestinal complaints Genitourinary: Genitourinary: Reports no additional female genitourinary complaints and Reports as per HPI Musculoskeletal: Musculoskeletal: Reports no additional musculoskeletal complaints, Reports as per HPI and Reports back pain Neurologic: Reports system reviewed and no additional complaints, except as documented and Reports as per HPI Psychiatric: Psychiatric: Reports no additional psychiatric complaints and Reports as per HPI PMF Past Medical History Surgical History History of appendectomy History of colonoscopy History of hernia repair History of hysterectomy Hx of endoscopy Family History Family History Father History of colon cancer Mother History of diabetes mellitus Social History Social History Alcohol intake: never Advance Directives: No Advance Directives Information Provided: No Sexual orientation: Straight/Heterosexual Gender identity: Female Physical Exam Vital Signs: Vital Signs: Last Vital Signs Temp 96.5 F L 08/03/21 22:03 Pulse 85 08/03/21 22:03 Resp 20 08/03/21 22:03 BP 151/89 H 08/03/21 22:03 Pulse Ox 100 08/03/21 22:03 Body Mass Index 37.8 Const: General: cooperative, healthy appearing, comfortable, no acute distress, well developed, alert, awake and Physically active Orientation/consciousness: patient oriented x3 HENMT: Head: Yes normal to inspection, Yes No palpable skull fracture present, Yes normocephalic, Yes atraumatic and No abrasion Eyes: General: appearance normal, both eyes and all related structures Neck: Neck: Yes normal visual inspection, Yes full ROM, Yes no lymphadenopathy, Yes no meningeal signs, Yes trachea midline, Yes supple and No tender Chest: Chest palpation & inspection: normal inspection of the chest and normal palpation of entire chest wall Resp: Effort & Inspection: normal respiratory effort and able to speak in complete sentences Auscultation: clear to auscultation bilaterally Cardio: Jugular venous distension: no JVD Heart sounds: S1 normal heart sound present and S2 normal heart sound present GI: Inspection: Yes normal to inspection and No abdominal wall ecchymosis Palpation (GI): Soft to palpation, not firm, nontender, no guarding and not rigid : General: No CVA tenderness and Yes no CVA tenderness Back/Spine/Pelvis: Back: no CVA tenderness, No CVA tenderness and back tenderness (Lumbar tenderness mild) Skin: General skin exam: no rashes or lesions noted and elasticity normal Neuro: General: patient oriented x3, gait normal, no meningeal signs and CN's II-XI intact bilaterally Cranial nerves: Yes CN's II-XII intact bilaterally Extrem: General: Yes normal to inspection and Yes full ROM Psych: Appearance: grossly normal, well kempt and not disheveled Course Course Course Narrative: No need for repeat imaging. No recent trauma. not suspecting chord compression Patient history of nerve impingement sciatica and back arthritis. Will give pain medication. Reevaluation(s) Reevaluation #1: Patient to be discharged with Toradol, and steroid. Patient informed to follow-up with PCP/orthopedic follow-up for re-evaluation and to see if MRI indicated. Time: 22:54 MDM - Back Pain/Injury MDM Narrative Medical decision making narrative: Sciatic Discharge Plan Discharge Clinical Impression: Sciatica, Lumbar radiculopathy Patient Disposition: Home, Self-Care Instructions: Sciatica (ED), Lumbar Radiculopathy (ED) Additional Instructions: Regrese al servicio de urgencias por empeoramiento del dolor de espalda, incontinencia urinaria / intestinal, par?lisis de las extremidades inferiores, arrastre de los pies, n?useas, v?mitos, dolor en el costado, fiebre, escalofr?os, dolor abdominal, disuria, hematuria o cualquier otro s?ntoma preocupante. Gaetano un seguimiento con middleton proveedor de atenci?n primaria. Prescriptions: New ketorolac 10 mg tablet 10 mg PO Q6H PRN (Reason: pain) 5 Days Qty: 20 RF: 0 prednisone 20 mg tablet 60 mg PO DAILY 5 Days Qty: 15 RF: 0 No Action ketorolac 10 mg tablet 10 mg PO TID 5 Days Qty: 15 RF: 0 hyoscyamine sulfate 0.125 mg tablet 0.25 mg PO QID PRN (Reason: dyspepsia) Qty: 10 RF: 0 pantoprazole [Protonix] 40 mg tablet,delayed release (DR/EC) 40 mg PO BID RF: 0 ondansetron HCl [Zofran] 4 mg tablet 4 mg PO Q6H RF: 0 dicyclomine 20 mg tablet 20 mg PO QID Qty: 120 RF: 4 Linzess 72 mcg capsule 72 mcg PO QAM Qty: 30 RF: 4 Stand Alone Forms: Work/School Release Print Language: Persian
[2021-08-03] MEDS: Cyclobenzaprine HCl 10 MG TABLET PO (23:13)
[2021-08-03] MEDS: Ketorolac Tromethamine 15 MG/ML VIAL 30 MG IM (23:13)
[2021-08-03] MEDS: predniSONE 20 MG TABLET 60 MG PO (23:13)
== END 2021-08-04 00:19 | disposition home or self-care (01) ==
PROVIDERS: Emergency Provider Internal Medicine; PCP Family Medicine
DX: M54.16 Radiculopathy, lumbar region (principal); M54.30 Sciatica, unspecified side
CPT/HCPCS: 99282; 99284; J1885

== ENCOUNTER 2021-08-16 09:47 | Outpatient (REF) | payer MEDICAID, SELFPAY ==
--- NOTE | ~2021-08-16 | XR_ITS ---
EXAMINATION: XR ABDOMEN KUB CLINICAL INDICATION: Right lower quadrant pain. COMPARISON: CT abdomen and pelvis 02/28/2021 and KUB 12/30/2018. TECHNIQUE: AP view of the abdomen. FINDINGS: The bowel gas pattern is normal with no evidence of ileus or obstruction. No unusual soft tissue calcifications are noted. A phlebolith is noted in the right hemipelvis that was also present on the 12/30/2018 study as well as the prior CT (2:80). The bones are unremarkable. XR/XR KUB IMPRESSION: Unremarkable examination.
== END 2021-08-16 09:48 | disposition home or self-care (01) ==
LOC: HO.XRAY 09:47
PROVIDERS: Absent Provider Family Medicine; PCP Family Medicine; Visit Provider Nurse Practitioner Family
DX: R10.31 Right lower quadrant pain (principal)
CPT/HCPCS: 74018

== ENCOUNTER 2021-08-25 09:09 | Outpatient (REF) | payer MEDICAID, SELFPAY ==
--- NOTE | ~2021-08-25 | XR_ITS ---
EXAMINATION: XR HIP, RIGHT CLINICAL INFORMATION: Right hip pain COMPARISON: None TECHNIQUE: Two views of the right hip. FINDINGS: Bones and soft tissues are normal. No fracture. Alignment is anatomic. Hip joint space is maintained. XR/XR hip RT min 2V IMPRESSION: Normal right hip.
== END 2021-08-25 09:10 | disposition home or self-care (01) ==
LOC: HO.XRAY 09:09
PROVIDERS: PCP Family Medicine; Visit Provider Family Medicine
DX: M25.551 Pain in right hip (principal)
CPT/HCPCS: 73502

== ENCOUNTER → 2021-11-30 08:35 | Outpatient (BNVA) | payer MEDICAID, SELFPAY | PROVIDERS: PCP Family Medicine; Visit Provider Nurse Practitioner Family | DX: M67.911 Unspecified disorder of synovium and tendon, right shoulder (principal); M54.50 Low back pain, unspecified | CPT/HCPCS: 99212 ==

== ENCOUNTER → 2021-12-28 09:06 | Outpatient (BNVA) | payer MEDICAID, SELFPAY | PROVIDERS: PCP Family Medicine; Visit Provider Nurse Practitioner Family | DX: M53.3 Sacrococcygeal disorders, not elsewhere classified (principal); M54.16 Radiculopathy, lumbar region; M47.816 Spondylosis without myelopathy or radiculopathy, lumbar region | CPT/HCPCS: 99202 ==

== ENCOUNTER 2022-01-20 20:17 | Emergency (ER) | payer MEDICAID, SELFPAY ==
--- NOTE | ~2022-01-20 | CT_ITS ---
EXAMINATION: CT HEAD WITHOUT CONTRAST CLINICAL INFORMATION: Headache with facial droop COMPARISON: 06/17/2012 TECHNIQUE: Contiguous axial imaging was performed from the skull base to vertex without intravenous administration of contrast. This CT examination was performed using dose optimization techniques as appropriate, variously including the following: *Automated exposure control *Adjustment of mA and/or kV according to patient size (this includes techniques or standardized protocols for targeted exams where dose is matched to indication/reason for exam; i.e. extremities or head) *Use of iterative reconstruction technique DLP: 874 mGy-cm FINDINGS: There is no midline shift. There is no mass effect. There is no hemorrhage. The basal cisterns appear patent. The posterior fossa is grossly within normal limits. There is no extra-axial collection. The bar-white matter is fairly well-preserved. No suspicious finding on the bone windows. CT/CT head/brain wo con IMPRESSION: Negative acute noncontrast CT of the brain.
[2022-01-20 20:23] VITALS: BP 169/93; PULSE 93; RESP 20; TEMP 36.4; O2SAT 98; BMI 30.4
--- NOTE | 2022-01-20 20:38 | ED.HA ---
HPI - Headache General Chief Complaint: Headache Stated Complaint: drooping leftside face, headache Time Seen by Provider: 01/20/22 20:32 Source: patient and family Mode of arrival: ambulatory Limitations: no limitations History of Present Illness HPI Narrative: Patient history of migraine headache with anxiety mid out hospital but multiple times during the head episodes of migraine headache she does get to sting of the face this time she woke up at 19:00 notice headache on the left side with left facial drooping as in the past also patient complaining of left arm pain . Patient is also complaining of having pseudo seizure like activity asking for Dilaudid with Benadryl as other medication do not work. Speech is normal no focal deficit Related Data Home Medications Medication Instructions Recorded Confirmed ondansetron HCl 4 mg tablet 4 mg PO Q6H 08/26/20 11/30/21 (Zofran) pantoprazole 40 mg tablet,delayed 40 mg PO BID tab 08/26/20 11/30/21 release (Protonix) cetirizine 10 mg tablet 10 mg PO DAILY 06/17/21 11/30/21 cholecalciferol (vitamin D3) 25 25 mcg PO QAM 06/17/21 11/30/21 mcg (1,000 unit) tablet doxepin 10 mg capsule 10 mg PO BEDTIME 06/17/21 11/30/21 fluticasone propionate 230 2 puff INHALATION 06/17/21 11/30/21 mcg-salmeterol 21 mcg/actuation HFA inhaler (Advair HFA) montelukast 10 mg tablet 10 mg PO QPM 06/17/21 11/30/21 meloxicam 7.5 mg tablet 7.5 mg PO 12/28/21 Previous Rx's Medication Instructions Recorded dicyclomine 20 mg tablet 20 mg PO QID #120 tab 10/27/20 linaclotide 72 mcg capsule 72 mcg PO QAM #30 cap 10/27/20 (Linzess) hyoscyamine sulfate 0.125 mg tablet 0.25 mg PO QID PRN #10 tab 02/28/21 tizanidine 2 mg tablet 2 mg PO BEDTIME PRN #30 tab 12/30/21 ufkaonxrkn-kuwcqaggscctt-lcmsxltg 1 cap PO Q6H PRN #20 cap 01/20/22 50 mg-300 mg-40 mg capsule (Fioricet) Allergies Allergy/AdvReac Type Severity Reaction Status Date / Time citalopram [From Celexa] AdvReac Mild ANXIETY Verified 01/20/22 20:23 divalproex sodium AdvReac Mild ANXIETY/JUM Verified 01/20/22 20:23 [From Depakote] PY olanzapine [From Zyprexa] AdvReac Mild ANXIETY Verified 01/20/22 20:23 paroxetine [From Paxil] AdvReac Mild ANXIETY Verified 01/20/22 20:23 Review of Systems Review of Systems: Yes all other systems are reviewed and are negative [facility] Past Medical History Surgical History History of appendectomy History of colonoscopy History of hernia repair History of hysterectomy Hx of endoscopy Family History Family History Father History of colon cancer Mother History of diabetes mellitus Social History Social History Alcohol intake: never Patient Tobacco Use Status: Never used Tobacco Advance Directives: No Sexual orientation: Straight/Heterosexual Gender identity: Female Physical Exam Vital Signs: Vital Signs: Last Vital Signs Temp 98.7 F 01/20/22 22:58 Pulse 70 01/20/22 22:58 Resp 18 01/20/22 22:58 BP 139/65 01/20/22 22:58 Pulse Ox 98 01/20/22 22:58 BMI result Body Mass Index 30.4 Appearance: Alert. Oriented X3. No acute distress. Eyes: PERRLA, No Nystagmus ENT: Pharynx normal. Oral Mucosa moist Neck: Normal inspection. Neck supple. CVS: Normal heart rate and rhythm. Pulses normal. Respiratory: No respiratory distress. Equal air entry bilateral, no wheezing/rales/rhonchi Abdomen: Soft and nontender. Bowel sounds are present, no mass palpable, no CVA tenderness Skin: Skin warm and dry. Normal skin color. Normal skin turgor. Extremities: No lower extremity edema. No calf tenderness Neuro: Oriented X 3. No motor deficit. No sensory deficit.No cerebellar signs , twisting of the left side of the face MDM - Headache MDM Narrative Medical decision making narrative: Patient's CT scan negative for any acute stroke patient's symptoms improved during stay in the ER headache improved after giving oxycodone and Benadryl IM discharge patient home Discharge Plan Discharge Clinical Impression: Migraine Patient Disposition: Home, Self-Care Instructions: Migraine Headache (ED) Additional Instructions: Rest at home Take medication as prescribed for migraine headaches Prescriptions: New mxdwugsbfw-yhrgaiqhlhqde-qrth [Fioricet] 50-300-40 mg capsule 1 cap PO Q6H PRN (Reason: headache) Qty: 20 0RF No Action tizanidine 2 mg tablet 2 mg PO BEDTIME PRN (Reason: muscle spasticity) Qty: 30 3RF hyoscyamine sulfate 0.125 mg tablet 0.25 mg PO QID PRN (Reason: dyspepsia) Qty: 10 0RF pantoprazole [Protonix] 40 mg tablet,delayed release (DR/EC) 40 mg PO BID 0RF ondansetron HCl [Zofran] 4 mg tablet 4 mg PO Q6H 0RF dicyclomine 20 mg tablet 20 mg PO QID Qty: 120 4RF Linzess 72 mcg capsule 72 mcg PO QAM Qty: 30 4RF cholecalciferol (vitamin D3) 25 mcg (1,000 unit) tablet 25 mcg PO QAM 0RF Advair HFA 230-21 mcg/actuation HFA aerosol inhaler 2 puff inhalation 0RF montelukast 10 mg tablet 10 mg PO QPM 0RF doxepin 10 mg capsule 10 mg PO BEDTIME 0RF cetirizine 10 mg tablet 10 mg PO DAILY 0RF meloxicam 7.5 mg tablet 7.5 mg PO 0RF Interventions: ED Discharge Assessment Last Done: 01/21/22 00:02 Discharge Date/Time: 01/21/22 00:02 Print Language: Slovenian
[2022-01-20] MEDS: SUMAtriptan succinate 6 MG/0.5 ML VIAL SUBCUT (21:11)
[2022-01-20] MEDS: Ondansetron ODT 4 MG TAB.RAPDIS TRANSLINGU (21:11)
[2022-01-20 22:58] VITALS: BP 139/65; PULSE 70; RESP 18; TEMP 37.1; O2SAT 98
[2022-01-20] MEDS: diphenhydrAMINE HCL 50 MG/ML VIAL IM (23:44)
[2022-01-20] MEDS: oxyCODONE HCl Immed Release 5 MG TABLET 10 MG PO (23:44)
== END 2022-01-21 00:02 | disposition home or self-care (01) ==
PROVIDERS: Emergency Provider Internal Medicine
DX: G43.909 Migraine, unspecified, not intractable, without status migrainosus (principal)
CPT/HCPCS: 70450; 96372; 99284; J1200; J3030

== ENCOUNTER → 2022-01-25 09:13 | Outpatient (BNVA) | payer MEDICAID, SELFPAY | PROVIDERS: PCP Family Medicine; Visit Provider Nurse Practitioner Family | DX: M53.3 Sacrococcygeal disorders, not elsewhere classified (principal); M62.830 Muscle spasm of back | CPT/HCPCS: 99212 ==

== ENCOUNTER 2022-01-31 07:48 | Emergency (ER) | payer MEDICAID, SELFPAY ==
--- NOTE | ~2022-01-31 | CT_ITS ---
EXAMINATION: CT ABDOMEN AND PELVIS WITHOUT CONTRAST CLINICAL INFORMATION: Fall. Right lower quadrant tenderness. Change in mental status. COMPARISON: Previous CT of the abdomen and pelvis February 2021 and renal ultrasound most recent March 2021 TECHNIQUE: Multidetector volumetric imaging was performed from the superior aspect of the liver through the pubic symphysis. Sagittal and coronal reformatted images were obtained on the technologist's workstation. This CT examination was performed using dose optimization techniques as appropriate, variously including the following: *Automated exposure control *Adjustment of mA and/or kV according to patient size (this includes techniques or standardized protocols for targeted exams where dose is matched to indication/reason for exam; i.e. extremities or head) *Use of iterative reconstruction technique DLP: 999 mGy-cm FINDINGS: LUNG BASES: The visualized lung bases are unremarkable. LIVER, GALLBLADDER, AND BILIARY TREE: The liver is normal in size, shape, and attenuation. No focal hepatic lesion or biliary ductal dilatation is present. The gallbladder is unremarkable with no evidence of radiopaque gallstones, gallbladder wall thickening, or obvious pericholecystic inflammatory changes. PANCREAS: Unremarkable. SPLEEN: Unremarkable. ADRENAL GLANDS: Unremarkable. KIDNEYS AND URETERS:There are small 1 mm nonobstructing right renal stones in the upper and midpole. There is no left renal stone. There is no hydronephrosis. There is mild proximal and mid ureteral dilatation. The right distal ureter is difficult to follow. No definite ureteral stone is seen. BLADDER: Not optimally distended but appears unremarkable GASTROINTESTINAL TRACT: The small and large bowel is unremarkable. The appendix is not seen and may have been removed. The stomach is unremarkable. ABDOMINAL WALL: No significant hernia is appreciated. LYMPH NODES: There are small, small bowel mesentery lymph nodes. No enlarged lymph nodes are seen. VASCULAR: Unremarkable. PELVIC VISCERA: Uterus appears to have been removed. No pelvic mass is seen. OSSEOUS STRUCTURES: Unremarkable. CT/CT abdomen pelvis wo con IMPRESSION: Small nonobstructing right renal stones. No hydronephrosis. Mild dilatation of the right proximal and mid ureter. No definite ureteral stone seen. Fleischner guidelines were followed.
--- NOTE | ~2022-01-31 | US_ITS ---
EXAMINATION: ULTRASOUND PELVIS CLINICAL INFORMATION: Right-sided pelvic pain COMPARISON: Right lower quadrant pain. TECHNIQUE: Routine grayscale imaging of pelvis with Doppler imaging performed. FINDINGS: The uterus has been surgically removed and not visualized. The right ovary measures 4.2 x 1.7 x 2.8 cm and volume 10.5 mL. There is anechoic cyst measuring 0.9 x 0.9 x 0.8 cm. Previously right ovary measured 2.6 x 1.8 x 2.1 cm The left ovary measures 2.9 x 1.6 x 3.2 cm and volume 7.8 mL. There is anechoic cyst measuring 1.3 x 1.2 x 1.3 cm. Previously measured 2.6 x 1.7 x 2.0 cm. On Doppler exam there is normal arterial and venous flow seen to both ovaries. There is no free fluid in the cul-de-sac. US/US pelvic ovarian doppler IMPRESSION: Uterus has been removed. There are bilateral ovarian cysts. Normal vascular flow seen to both ovaries on Doppler exam..
[2022-01-31 07:54] VITALS: BP 126/83; PULSE 76; RESP 18; TEMP 36.8; O2SAT 98; BMI 37.7
[2022-01-31 08:17] LABS: MANUAL DIFF FLAG NO
[2022-01-31 08:18] VITALS: BP 129/63; PULSE 74; RESP 14; O2SAT 99
[2022-01-31 08:20] LABS: Basophils Percent Auto 0.3 % (0-2); Eosinophils Absolute Auto 0.2 X10*3/uL (0.0-0.4); Eosinophils Percent Auto 3.2 % (0-4); Hematocrit 39.2 % (37.0-47.0); Hemoglobin 12.5 g/dl (12.0-16.0); Imm Gran Abs Auto 0.02 X10*3/uL (0.00-0.03); Imm Gran Pct Auto 0.3 % (0.0-0.4); Lymphocytes Absolute Auto 2.8 X10*3/uL (1.2-4.9); Lymphocytes Percent Auto 43.9 % (20-40); Mean Corpuscular HGB Conc 31.9 g/dl (31.0-35.0); Mean Corpuscular Hemoglobin 27.5 pg (27.0-33.0); Mean Corpuscular Volume 86.3 fL (80.0-98.0); Mean Platelet Volume 8.6 fL (9.4-12.3); Monocytes Absolute Auto 0.5 X10*3/uL (0.1-1.2); Monocytes Percent Auto 7.5 % (2-11); Neutrophils Absolute Auto 2.8 x10*3/uL (2.0-8.3); Neutrophils Percent Auto 44.8 % (45-73); Platelet Count 324 X10*3/uL (160-400); Red Blood Count 4.54 X10*6/uL (4.20-5.50); Red Cell Distribution Width 13.5 % (11.0-16.0); White Blood Count 6.3 X10*3/uL (4.8-10.8)
[2022-01-31 08:37] LABS: Alanine Aminotransferase 14 U/L (0-31); Albumin Level 4.1 g/dL (3.5-5.0); Alkaline Phosphatase 78 U/L (39-117); Anion Gap 11 (12-20); Aspartate Amino Transferase 12 U/L (5-31); Bilirubin Total 0.4 mg/dL (0.0-1.0); Blood Urea Nitrogen 10 mg/dL (9-16); Calcium 9.7 mg/dL (8.4-10.2); Carbon Dioxide 27 mmol/L (22-29); Chloride 106 mmol/L (96-108); Creatinine Clr Calc Pharmacy 103.4; Estimated Glomerular Filt Rate > 60; Glucose Random 101 mg/dL (60-115); Lipase 11 U/L (8-78); Potassium 4.2 mmol/L (3.3-5.1); Sodium 140 mmol/L (135-145); Total Protein 7.3 g/dL (6.5-8.0)
--- NOTE | 2022-01-31 09:00 | ED_ITS ---
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 Right lower abdominal pain started since yesterday pain is localized to the ri ght lower area, radiating down to the right leg, feeling nauseous but no vomiting, no bowel movement for the past 2 days, patient also complaining of dysuria. Patient declined chest pain, no nausea, no vomiting, no fever, no chills. Patient had a history of appendectomy and hysterectomy. Patient also had a history of right ovarian cyst. Related Data Home Medications Medication Instructions Recorded Confirmed ondansetron HCl 4 mg tablet 4 mg PO Q6H 08/26/20 11/30/21 (Zofran) pantoprazole 40 mg tablet,delayed 40 mg PO BID tab 08/26/20 11/30/21 release (Protonix) cetirizine 10 mg tablet 10 mg PO DAILY 06/17/21 11/30/21 cholecalciferol (vitamin D3) 25 25 mcg PO QAM 06/17/21 11/30/21 mcg (1,000 unit) tablet doxepin 10 mg capsule 10 mg PO BEDTIME 06/17/21 11/30/21 fluticasone propionate 230 2 puff INHALATION 06/17/21 11/30/21 mcg-salmeterol 21 mcg/actuation HFA inhaler (Advair HFA) montelukast 10 mg tablet 10 mg PO QPM 06/17/21 11/30/21 meloxicam 7.5 mg tablet 7.5 mg PO 12/28/21 Previous Rx's Medication Instructions Recorded dicyclomine 20 mg tablet 20 mg PO QID #120 tab 10/27/20 linaclotide 72 mcg capsule 72 mcg PO QAM #30 cap 10/27/20 (Linzess) hyoscyamine sulfate 0.125 mg tablet 0.25 mg PO QID PRN #10 tab 02/28/21 tizanidine 2 mg tablet 2 mg PO BEDTIME PRN #30 tab 12/30/21 suipopcmfp-gwtnxwfixtyfp-gzjnhshe 1 cap PO Q6H PRN #20 cap 01/20/22 50 mg-300 mg-40 mg capsule (Fioricet) Allergies Allergy/AdvReac Type Severity Reaction Status Date / Time citalopram [From Celexa] AdvReac Mild ANXIETY Verified 01/31/22 07:54 divalproex sodium AdvReac Mild ANXIETY/JUM Verified 01/31/22 07:54 [From Depakote] PY olanzapine [From Zyprexa] AdvReac Mild ANXIETY Verified 01/31/22 07:54 paroxetine [From Paxil] AdvReac Mild ANXIETY Verified 01/31/22 07:54 Review of Systems Review of Systems All other systems are reviewed and are negative Constitutional: Reports as per HPI and Reports no additional constitutional complaints Eyes: Reports as per HPI and Reports no additional eye complaints Reports system reviewed and no additional complaints, except as documented Cardiovascular: Reports as per HPI and Reports no additional cardiovascular complaints Respiratory: Reports as per HPI and Reports no additional respiratory complaints Gastrointestinal: Reports as per HPI and Reports no additional gastrointestinal complaints Genitourinary: Reports no additional female genitourinary complaints Musculoskeletal: Reports no additional musculoskeletal complaints Skin/Breast: Reports system reviewed and no additional complaints, except as docu Psychiatric: Reports no additional psychiatric complaints Endocrine: Reports no additional endocrine complaints Hematologic/Lymphatic: Reports no additional hematologic/lymphatic complaints Allergic/Immunologic: Reports no additional allergic/immunologic complaints Reports system reviewed and no additional complaints, except as documented and Reports Abnormal speech present [facility] Past Medical History Surgical History History of appendectomy History of colonoscopy History of hernia repair History of hysterectomy Hx of endoscopy Family History Family History Father History of colon cancer Mother History of diabetes mellitus Social History Social History Alcohol intake: never Patient Tobacco Use Status: Never used Tobacco Advance Directives: No Advance Directives Information Provided: No Sexual orientation: Straight/Heterosexual Gender identity: Female Physical Exam ED Vital Signs: Vital Signs - 24 hr 01/31/22 07:54 01/31/22 08:18 Temperature 98.3 F Pulse Rate 76 74 Respiratory Rate 18 14 Blood Pressure 126/83 129/63 Pulse Oximetry 98 99 BMI result Body Mass Index 37.7 Vital signs have been reviewed as appeared to be correct. Blood pressure normal. Heart rate normal. Respiration rate normal. Temperature normal. Oxygen saturation normal. Appearance: Alert. Oriented X3. No acute distress. Head: Normal external exam. Normocephalic. Atraumatic. No Pires signs noted. No raccoon eyes noted Eyes: PERRLA. EOMI. Conjunctiva and sclera normal. Eyelids normal. ENT: TM's Normal. Pharynx normal. Uvula midline. Moist mucous membranes. No trismus noted. No drooling noted. No muffled voice noted. Neck: Normal inspection. Neck supple. FROM. No adenopathy. Thyroid Normal. No meningeal signs. No neck mass noted. CVS: Normal heart rate and rhythm. Heart sound normal. No murmurs noted. Pulses normal throughout. Respiratory: No respiratory distress. Painless inspiration. Breath sounds normal. No wheezes/rales/rhonchi noted. Chest nontender. No accessory muscle usage noted or decreased air movement noted. Abdomen: Soft, right lower quadrant tenderness, no rebound tenderness, no guarding. Bowel sounds normal in all 4 quadrants. No distention noted. No organomegaly noted. No visible injury noted. Back: No CVA tenderness. Full range of motion noted. Skin: Skin warm and dry. Normal skin color. Normal skin turgor. No rashes/lesions/lacerations noted. Extremities: No lower extremity edema. Extremities exhibit normal range of motion. Extremities nontender. Neuro: Oriented X 3. Cranial nerve exam: II-XII are grossly intact No motor deficit. No sensory deficit. Reflexes normal. Course Course Course Narrative: Assessment and plan. 51-year-old female came in for evaluation of her lower abdominal pain mostly on the right, patient status post appendectomy, CT abdomen pelvis is unremarkable, labs are unremarkable, patient had pelvic ultrasound which showed normal vascularity to both ovaries (patient is status post hysterectomy). UA showed no UTI. Patient was given 1 pill of oxycodone and she is feeling better. Will discharge the patient to follow-up with PCP. MDM - Abdominal Pain Medical Records Attestation: I reviewed the patient's medical records. Lab Data Attestation: I reviewed the patient's lab results. Result diagrams: 01/31/22 08:03 01/31/22 08:03 Labs: Lab Results 01/31/22 01/31/22 01/31/22 Range/Units 08:03 08:03 11:15 WBC 6.3 (4.8-10.8) X10*3/uL RBC 4.54 (4.20-5.50) X10*6/uL Hgb 12.5 (12.0-16.0) g/dl Hct 39.2 (37.0-47.0) % MCV 86.3 (80.0-98.0) fL MCH 27.5 (27.0-33.0) pg MCHC 31.9 (31.0-35.0) g/dl RDW 13.5 (11.0-16.0) % Plt Count 324 (160-400) X10*3/uL MPV 8.6 L (9.4-12.3) fL Immature Gran % (Auto) 0.3 (0.0-0.4) % Neut % (Auto) 44.8 L (45-73) % Lymph % (Auto) 43.9 H (20-40) % [place] % (Auto) 7.5 (2-11) % Eos % (Auto) 3.2 (0-4) % Baso % (Auto) 0.3 (0-2) % Lymph # (Auto) 2.8 (1.2-4.9) X10*3/uL [place] # (Auto) 0.5 (0.1-1.2) X10*3/uL Eos # (Auto) 0.2 (0.0-0.4) X10*3/uL Baso # (Auto) 0.0 (0.0-0.2) X10*3/uL Abs Immat Gran (auto) 0.02 (0.00-0.03) X10*3/uL Absolute Neuts (auto) 2.8 (2.0-8.3) x10*3/uL Absolute Nucleated RBC 0.000 (0.0-0.012) X10*3/uL Nucleated RBC % (auto) 0.0 (0.0-0.2) /100WBC Sodium 140 (135-145) mmol/L Potassium 4.2 (3.3-5.1) mmol/L Chloride 106 (96-108) mmol/L Carbon Dioxide 27 (22-29) mmol/L Anion Gap 11 L (12-20) BUN 10 (9-16) mg/dL Creatinine 0.81 (0.5-1.4) mg/dL Estim Creat Clear Calc 103.4 Estimated GFR > 60 Random Glucose 101 (60-115) mg/dL Calcium 9.7 (8.4-10.2) mg/dL Total Bilirubin 0.4 (0.0-1.0) mg/dL AST 12 (5-31) U/L ALT 14 (0-31) U/L Alkaline Phosphatase 78 (39-117) U/L Total Protein 7.3 (6.5-8.0) g/dL Albumin 4.1 (3.5-5.0) g/dL Lipase 11 (8-78) U/L Urine Color YELLOW Urine Appearance CLEAR Urine pH 6.0 (5.0-8.0) Ur Specific [place] 1.015 (1.005-1.025) Urine Protein NEG (NEG-TRACE) MG/DL Urine Glucose (UA) NEG (NEG) MG/DL Urine Ketones NEG (NEG) MG/DL Urine Blood 1+ H (NEG) Urine Nitrite NEG (NEG) Ur Leukocyte Esterase NEG (NEG) Urine RBC 5-9 H (0) /HPF Urine WBC 0-2 (0-4) /HPF Ur Squamous Epith Cells 1+ /LPF Urine Bacteria 1+ /LPF Imaging Data Abdomen pelvis CT: Attestation: I personally reviewed and interpreted this imaging study as follows: Radiologist's impression: Small nonobstructing right renal stones. No hydronephrosis. Mild dilatation of the right proximal and mid ureter. No definite ureteral stone seen. ? Ovarian Doppler ultrasound: Attestation: I personally reviewed and interpreted this imaging study as follows: Radiologist's impression: Uterus has been removed. ?There are bilateral ovarian cysts. ?Normal vascular flow seen to both ovaries on Doppler exam.. Discharge Plan Discharge Clinical Impression: Abdominal pain Patient Disposition: Home, Self-Care Instructions: Abdominal Pain (ED) Prescriptions: No Action tizanidine 2 mg tablet 2 mg PO BEDTIME PRN (Reason: muscle spasticity) Qty: 30 3RF hyoscyamine sulfate 0.125 mg tablet 0.25 mg PO QID PRN (Reason: dyspepsia) Qty: 10 0RF cykasnrebw-donvvqydsaaau-drpo [Fioricet] 50-300-40 mg capsule 1 cap PO Q6H PRN (Reason: headache) Qty: 20 0RF pantoprazole [Protonix] 40 mg tablet,delayed release (DR/EC) 40 mg PO BID 0RF ondansetron HCl [Zofran] 4 mg tablet 4 mg PO Q6H 0RF dicyclomine 20 mg tablet 20 mg PO QID Qty: 120 4RF Linzess 72 mcg capsule 72 mcg PO QAM Qty: 30 4RF cholecalciferol (vitamin D3) 25 mcg (1,000 unit) tablet 25 mcg PO QAM 0RF Advair HFA 230-21 mcg/actuation HFA aerosol inhaler 2 puff inhalation 0RF montelukast 10 mg tablet 10 mg PO QPM 0RF doxepin 10 mg capsule 10 mg PO BEDTIME 0RF cetirizine 10 mg tablet 10 mg PO DAILY 0RF meloxicam 7.5 mg tablet 7.5 mg PO 0RF Referrals: Mkiala Borges MD [Primary Care Provider] - 2 days
[2022-01-31 11:41] LABS: Appearance Urine CLEAR; Color Urine YELLOW; Glucose Urine UA NEG (NEG); Leukocyte Esterase Urine NEG (NEG); Nitrite Urine NEG (NEG); Specific Gravity - Urine 1.015 (1.005-1.025); UACC Culture Trigger NO; Urine Blood 1+ (NEG); Urine Ketones NEG (NEG); Urine Protein NEG (NEG-TRACE)
[2022-01-31 11:56] LABS: Bacteria Urine 1+ /LPF; Squamous Epithelial Cell Urine 1+ /LPF; WBC Urine 0-2 /HPF (0-4)
[2022-01-31] MEDS: oxyCODONE HCl Immed Release 5 MG TABLET PO (12:34)
== END 2022-01-31 12:51 | disposition home or self-care (01) ==
PROVIDERS: Emergency Provider Emergency Medicine; PCP Family Medicine
DX: R10.31 Right lower quadrant pain (principal)
CPT/HCPCS: 36415; 74176; 80053; 81001; 83690; 85025; 93975; 99284

== ENCOUNTER 2022-02-14 17:00 | Outpatient (RCR) | payer MEDICAID, SELFPAY ==
--- NOTE | 2022-01-18 14:04 | MHC.PT.EP ---
[facility] [place] Office [place] Office [place] Office [address] Michel Foley [address] [phone] F: [phone] F: [phone] F: [phone] F: [phone] Physical Therapy Plan of Care Date of Evaluation: Date of Surgery: Diagnosis: Low back pain, R shoulder Assessment: 51 y/o F referred to PT from Pain management with LBP and R shoulder pain. She reports R-sided LBP with radicular sx that radiates to R LE for 2-3 years of insidious onset and reports worsening. Currently pain and difficulty with sleeping, prolonged sitting, prolonged standing, walking, and stairs. Standing is most painful. She would like to focus on LBP. Examination shows decreased lumbar AROM, decreased R hip AROM, impaired SI mechanics, decreased core/hip strength, poor functional mobility mechanics, and impaired postural awareness. S/s consistent with lumbar derangement. Recommend PT 2x/week for 5 weeks to address impairments, implement HEP, and optimize functional mobility. Frequency and Duration: The patient will be seen 2x/week for 5 weeks Short Term Goals: 3 weeks 1. Initiate HEP 2. Sit to stand without UE support 5/5x Prison Goals: 5 weeks 1. I with HEP and self management of sx 2. Improve lumbar AROM by 25% all directions to faciliate dressing 3. Pt will be able to ambulate > 30 min with pain < 3/10 Treatment Plan: Modalities to reduce pain, spasms and effusion. Manual therapy to restore motion and function. Therapeutic exercise to improve strength and flexibility. Neuromuscular re-education for posture and balance. Therapeutic activities to return to functional activities of daily living. Electronically signed by: Ania Fleming PT Please sign and return to therapist. Thank you for your referral.
--- NOTE | 2022-02-23 10:23 | MHC.PT.DC ---
[facility] [place] [facility] [place] [facility] [place] [facility] [address] Michel Foley [address] [facility] [phone] F: [phone] F: [phone] F: [phone] F: [phone] Physical Therapy Discharge Report Diagnosis: Low back pain, R shoulder Date of Surgery: Date of Evaluation: 01/18/22 Date of Discharge: 02/23/22 Treatments to Date: 4 Cancellations to Date: 1 No Shows to Date: 3 Discharge Status: Patient Elected to Stop Visit Non-compliance Discharge Summary: Pt has had several no show visits and when called, she reports she would like to self d/c reporting continued pain. Electronically signed by: Ania Fleming PT Please sign and return to therapist. Thank you for your referral.
== END 2022-02-23 10:23 | disposition home or self-care (01) ==
LOC: HO.PT 17:00
PROVIDERS: PCP Family Medicine; Visit Provider Nurse Practitioner Family
DX: M54.50 Low back pain, unspecified (principal)
CPT/HCPCS: 97110; 97162; 97530

== ENCOUNTER 2022-04-14 08:36 | Day surgery (SDC) | payer MEDICAID, SELFPAY ==
--- NOTE | 2022-04-13 08:26 | HO.ANESPROP2 ---
HPI - Anesthesia Eval Consult details Narrative: 51yo F for Right ?Diagnostic Sacroiliac Joint Innervation Injection PMFSH Active Problems Active Problems: All Active Problems (Updated 02/01/22 @ 00:02 by Dov Moctezuma) Muscle spasm of back (Acute) Lumbar facet arthropathy (Acute) Lumbar radiculopathy, right (Acute) Sacroiliac joint pain (Acute) Low back pain (Acute) Tendinopathy of right rotator cuff (Acute) Abdominal cramping (Acute) Kidney stones (Acute) Female pelvic pain (Acute) Well woman exam (Acute) Upper abdominal pain (Acute) GERD (gastroesophageal reflux disease) (Acute) Nausea and vomiting (Acute) Chronic idiopathic constipation (Acute) Family History Family History Father History of colon cancer Mother History of diabetes mellitus Surgical History Surgical History History of appendectomy History of colonoscopy History of hernia repair History of hysterectomy Hx of endoscopy Social History Social History Alcohol intake: never Patient Tobacco Use Status: Never used Tobacco Sexual orientation: Straight/Heterosexual Gender identity: Female Meds Allergies Allergy/AdvReac Type Severity Reaction Status Date / Time citalopram [From Celexa] AdvReac Mild ANXIETY Verified 04/19/22 11:54 divalproex sodium AdvReac Mild ANXIETY/JUM Verified 04/19/22 11:54 [From Depakote] PY olanzapine [From Zyprexa] AdvReac Mild ANXIETY Verified 04/19/22 11:54 paroxetine [From Paxil] AdvReac Mild ANXIETY Verified 04/19/22 11:54 Home Medications Medication Instructions Recorded Confirmed Last Taken Type ondansetron HCl 4 mg tablet 4 mg PO Q6H 08/26/20 04/19/22 Unknown History (Zofran) pantoprazole 40 mg tablet,delayed 40 mg PO BID 08/26/20 04/19/22 Unknown History release (Protonix) cetirizine 10 mg tablet 10 mg PO DAILY 06/17/21 04/19/22 Unknown History cholecalciferol (vitamin D3) 25 25 mcg PO QAM 06/17/21 04/19/22 Unknown History mcg (1,000 unit) tablet doxepin 10 mg capsule 10 mg PO BEDTIME 06/17/21 04/19/22 Unknown History fluticasone propionate 230 2 puff inhalation 06/17/21 04/19/22 Unknown History mcg-salmeterol 21 mcg/actuation HFA inhaler (Advair HFA) montelukast 10 mg tablet 10 mg PO QPM 06/17/21 04/19/22 Unknown History Exam Exam Date and Time: April 13, 2022825 Pertinent Lab Results Pertinent Lab Results: Laboratory Tests 01/31/22 01/31/22 08:03 08:03 WBC 6.3 Hgb 12.5 Hct 39.2 Plt Count 324 Sodium 140 Potassium 4.2 Chloride 106 Carbon Dioxide 27 BUN 10 Creatinine 0.81 Assessment and Plan Assessment Anesthesia Assessment: Chart Reviewed
--- NOTE | ~2022-04-14 | FL_ITS ---
EXAMINATION: XR FLUOROSCOPY WITH IMAGES CLINICAL INFORMATION: Diagnostic SI joint innervation injection. COMPARISON: None TECHNIQUE: Fluoroscopy performed by Dr. Arthur Juarez. Fluoroscopy time: 0.5 minutes DAP: 2.9 Gycm2 Images: 4 FINDINGS: Images demonstrate needle placement and contrast injection over the left sacrum and sacroiliac joint. FL/FL guidance in OR IMPRESSION: Fluoroscopy guidance for SI joint innervation injection.
[2022-04-14 08:42] VITALS: BMI 35.2
[2022-04-14] MEDS: Lactated Ringers 1,000 ML 100 ML IVCONT (09:23)
--- NOTE | 2022-04-14 09:23 | P.CONAN_ITS ---
[facility] Active Problems Active Problems: All Active Problems (Updated 02/01/22 @ 00:02 by Dov Moctezuma) Muscle spasm of back (Acute) Lumbar facet arthropathy (Acute) Lumbar radiculopathy, right (Acute) Sacroiliac joint pain (Acute) Low back pain (Acute) Tendinopathy of right rotator cuff (Acute) Abdominal cramping (Acute) Kidney stones (Acute) Female pelvic pain (Acute) Well woman exam (Acute) Upper abdominal pain (Acute) GERD (gastroesophageal reflux disease) (Acute) Nausea and vomiting (Acute) Chronic idiopathic constipation (Acute) Family History Family History Father History of colon cancer Mother History of diabetes mellitus Family history of problems with anesthesia: No Surgical History Surgical History History of appendectomy History of colonoscopy History of hernia repair History of hysterectomy Hx of endoscopy History of Problems with Anesthesia: No Social History Social History Alcohol intake: never Patient Tobacco Use Status: Never used Tobacco Use of substances other than those prescribed or required for medical reasons: No Are you DNR?: No Advance Directives: No Advance Directives Information Provided: Yes Recently lost weight without trying: No Eating poorly because of decreased appetite: No Nutrition Risks: No Nutritional Risk Patient : No Sexual orientation: Straight/Heterosexual Gender identity: Female Meds Allergies Allergy/AdvReac Type Severity Reaction Status Date / Time citalopram [From Celexa] AdvReac Mild ANXIETY Verified 01/31/22 07:54 divalproex sodium AdvReac Mild ANXIETY/JUM Verified 01/31/22 07:54 [From Depakote] PY olanzapine [From Zyprexa] AdvReac Mild ANXIETY Verified 01/31/22 07:54 paroxetine [From Paxil] AdvReac Mild ANXIETY Verified 01/31/22 07:54 Active Medications: Current Medications Lactated Ringer's (Lr) 1,000 mls @ 100 mls/hr IVCONT .Q10H ADAL Cefazolin Sodium/Dextrose (Ancef) 2 gm in 50 mls @ 100 mls/hr IV PREOP ONE Stop: 04/14/22 09:51 Home Medications Medication Instructions Recorded Confirmed Last Taken Type ondansetron HCl 4 mg tablet 4 mg PO Q6H 08/26/20 11/30/21 Unknown History (Zofran) pantoprazole 40 mg tablet,delayed 40 mg PO BID 08/26/20 11/30/21 Unknown History release (Protonix) cetirizine 10 mg tablet 10 mg PO DAILY 06/17/21 11/30/21 Unknown History cholecalciferol (vitamin D3) 25 25 mcg PO QAM 06/17/21 11/30/21 Unknown History mcg (1,000 unit) tablet doxepin 10 mg capsule 10 mg PO BEDTIME 06/17/21 11/30/21 Unknown History fluticasone propionate 230 2 puff inhalation 06/17/21 11/30/21 Unknown History mcg-salmeterol 21 mcg/actuation HFA inhaler (Advair HFA) montelukast 10 mg tablet 10 mg PO QPM 06/17/21 11/30/21 Unknown History meloxicam 7.5 mg tablet 7.5 mg PO pain 12/28/21 Unknown History Exam Exam Date and Time: April 14, 2022 0923 Height,Weight and Vital Signs: Height 5 ft 8 in Weight 105.233 kg Airway Mallampati Class: III TM Dist: >3cm Neck ROM: Full Loose/Missing/Broken Teeth: No Heart: rr Lungs: clear Assessment and Plan Final Anesthetic Review Family History of Problems with Anesthesia: No History of Problems with Anesthesia: No NPO: Yes ASA Class: II Final Preanesthetic Review: No Changes in Pt Med Stat Patient Risk: Low Procedure Risk: Low Anesthetic Plan Anesthetic Plan: MAC: Disposition: Standard PACU
--- NOTE | 2022-04-14 09:23 | MHC.SHP ---
Pre-Procedural Eval Section A Date of Service: 04/14/22 The patient is an INPATIENT: No Changes since office visit: Yes Patient answered all questions The History & Physical has been completed within 30 days and I have reviewed it.: No Section B Chief Complaint: sacrococcygeal disorder Details of Present Illness: as above, sacroiliitis Relevant Family History (Specify if Yes): No Present Medications: None Medical History: No relevant PMH History of Previous Operations: No relevant previous surgery Allergies: Allergies Allergy/AdvReac Type Severity Reaction Status Date / Time citalopram [From Celexa] AdvReac Mild ANXIETY Verified 01/31/22 07:54 divalproex sodium AdvReac Mild ANXIETY/JUM Verified 01/31/22 07:54 [From Depakote] PY olanzapine [From Zyprexa] AdvReac Mild ANXIETY Verified 01/31/22 07:54 paroxetine [From Paxil] AdvReac Mild ANXIETY Verified 01/31/22 07:54 Review of Systems Sugical H&P ROS: Negative: Constitution, Cardiovascular, Respiratory, Neurological, Psychiatric, Hem-Onc, Allergic/Immunologic, Gastrointestinal, Genitourinary, Musculoskeletal, Integumentary, Endocrine and Eyes/Ears/Nose/Throat Exam Surgical H&P Exam: Normal: HEENT, Normal: Heart, Normal: Lungs, Normal: Extremities, Normal: Abdomen, Normal: Skin and Normal: Neurological Plan Diagnosis/Plan: Unchanged I have reviewed the history and physical and performed a pertinent physical examination on my patient. No changes have occurred unless specified.
[2022-04-14 09:25] VITALS: BP 135/66; PULSE 84; RESP 18; TEMP 36.6; O2SAT 97
--- NOTE | 2022-04-14 09:37 | W.PM.OPN ---
Operative Note Operative Note Date of Service: 04/14/22 Narrative: ?Diagnostic SI joint innervation injection. Informed consent was explained thoroughly to the patient.? All questions about benefits and risks for the procedure were answered. ?Patient came to the operating room she was positioned prone on the operating table with the pillow under her pelvis.? [employer] monitors were applied and patient was deeply sedated.? Opioids and ketamine were avoided during the sedation. ?Her lower back and buttocks was prepped with ChloraPrep prepped and draped with sterile towels.? Sterilely draped C-arm was brought over the operating field and sq picture of patient's pelvis was demonstrated on the screen.? ?The point of interests were delineated 1st:? Point A? as the?right S1 superior articular process at it's connection with right sacral alae.? ??point B: was determined as the lowest point of the right? sacroiliac joint on sacral side of the joint.? The rest of the point of interests were determined as the line between the point A and the point?B?. ?? The needles between point A and point B were planned to insert in the straight line in palisade fashion.? The skin in the projection of the points of interest were injected with small amount of local lidocaine 2% and bupivacain 0.5% 1;1, after that 22 gauge 3-1/2 inch needles were driven to the point of interest in tunnel vision fashion. ?? When needles gently contacted the bone- the each point of interest small amount of bupivacaine 0.5% less than 1 cc was injected into each needle. ?Upon completion of the injections the needles were removed sterile dressing was applied.? The patient tolerated procedure well.? She went outside of the operating room to PACU where she recovered uneventfully.? She went home without immediate complications.
--- NOTE | 2022-04-14 10:15 | P.BOP_ITS ---
Brief Operative Note Date of Service: 04/14/22 Pre-op diagnosis: Sacroiliitis Post-op diagnosis: same Procedure: diagnostic injection of the right sacroiliac joint innervation. Implants: None Surgeon: Arthur Juarez MD Anesthesia: MAC Was an Design Engineering Intern used for this Procedure?: No Estimated blood loss (mL): 1 Condition: stable Disposition: PACU
[2022-04-14 10:16] VITALS: BP 149/82; PULSE 78; RESP 16; TEMP 36.7; O2SAT 98
[2022-04-14 10:30] VITALS: BP 139/81; PULSE 73; RESP 16; TEMP 36.7; O2SAT 99
== END 2022-04-14 11:22 | disposition home or self-care (01) ==
PROVIDERS: PCP Family Medicine; Visit Provider Anesthesiology
PROC: (CPT 64451; principal; 2022-04-14 09:50)
DX: M53.3 Sacrococcygeal disorders, not elsewhere classified (principal); M62.830 Muscle spasm of back; M54.50 Low back pain, unspecified; Z79.899 Other long term (current) drug therapy; Z88.8 Allergy status to other drugs, medicaments and biological substances
CPT/HCPCS: 64451; J0690; J2250; J3010; J3300

== ENCOUNTER → 2022-04-19 11:39 | Outpatient (BNVA) | payer MEDICAID, SELFPAY | PROVIDERS: PCP Family Medicine; Visit Provider Nurse Practitioner Family | DX: M53.3 Sacrococcygeal disorders, not elsewhere classified (principal); M62.830 Muscle spasm of back | CPT/HCPCS: 99212 ==

== ENCOUNTER 2022-04-25 11:05 | Outpatient (REF) | payer MEDICAID, SELFPAY ==
--- NOTE | ~2022-04-25 | XR_ITS ---
EXAMINATION: XR CHEST CLINICAL INFORMATION: Chest pain COMPARISON: Previous chest x-ray most recent September 2018 TECHNIQUE: 2 views of the chest were obtained. FINDINGS: No significant abnormality is noted involving the heart, lungs, mediastinum, bony thorax or soft tissues. XR/XR chest 2V IMPRESSION: Unremarkable examination.
[2022-04-25 13:43] LABS: D Dimer High Sensitivity < 150 NG/ML
== END 2022-04-25 11:06 | disposition home or self-care (01) ==
LOC: HO.LAB 11:05
PROVIDERS: PCP Family Medicine; Visit Provider Emergency Medicine
DX: R07.9 Chest pain, unspecified (principal)
CPT/HCPCS: 36415; 71046; 85379

== ENCOUNTER 2022-05-23 22:11 | Emergency (ER) | payer MEDICAID, SELFPAY ==
[2022-05-23 23:57] VITALS: BP 148/82; PULSE 78; RESP 18; TEMP 36.4; O2SAT 99; BMI 38.2
[2022-05-24 01:15] LABS: Basophils Percent Auto 0.4 % (0-2); Eosinophils Absolute Auto 0.3 X10*3/uL (0.0-0.4); Eosinophils Percent Auto 3.5 % (0-4); Hematocrit 38.7 % (37.0-47.0); Hemoglobin 12.3 g/dl (12.0-16.0); Imm Gran Abs Auto 0.01 X10*3/uL (0.00-0.03); Imm Gran Pct Auto 0.1 % (0.0-0.4); Lymphocytes Absolute Auto 2.8 X10*3/uL (1.2-4.9); MANUAL DIFF FLAG NO; Mean Corpuscular HGB Conc 31.8 g/dl (31.0-35.0); Mean Corpuscular Hemoglobin 27.2 pg (27.0-33.0); Mean Corpuscular Volume 85.6 fL (80.0-98.0); Mean Platelet Volume 8.8 fL (9.4-12.3); Monocytes Absolute Auto 0.6 X10*3/uL (0.1-1.2); Monocytes Percent Auto 8.2 % (2-11); Neutrophils Absolute Auto 3.5 x10*3/uL (2.0-8.3); Neutrophils Percent Auto 48.8 % (45-73); Platelet Count 305 X10*3/uL (160-400); Red Blood Count 4.52 X10*6/uL (4.20-5.50); Red Cell Distribution Width 13.5 % (11.0-16.0); White Blood Count 7.2 X10*3/uL (4.8-10.8)
[2022-05-24 01:41] LABS: Alanine Aminotransferase 23 U/L (0-31); Albumin Level 4.2 g/dL (3.5-5.0); Alkaline Phosphatase 84 U/L (39-117); Anion Gap 9 (12-20); Aspartate Amino Transferase 18 U/L (5-31); Bilirubin Total 0.2 mg/dL (0.0-1.0); Blood Urea Nitrogen 10 mg/dL (9-16); Calcium 9.6 mg/dL (8.4-10.2); Carbon Dioxide 31 mmol/L (22-29); Chloride 106 mmol/L (96-108); Creatinine Clr Calc Pharmacy 90.7; Estimated Glomerular Filt Rate > 60; Glucose Random 109 mg/dL (60-115); Potassium 4.3 mmol/L (3.3-5.1); Sodium 142 mmol/L (135-145); Total Protein 7.3 g/dL (6.5-8.0)
[2022-05-24 03:32] LABS: Appearance Urine CLEAR; Color Urine YELLOW; Glucose Urine UA NEG (NEG); Leukocyte Esterase Urine NEG (NEG); Nitrite Urine NEG (NEG); Urine Blood NEG (NEG); Urine Ketones NEG (NEG); Urine Protein NEG (NEG-TRACE)
[2022-05-24 04:12] VITALS: BP 116/67; PULSE 70; RESP 18; O2SAT 98
--- NOTE | 2022-05-24 05:59 | PC.NURSE ---
I assumed care of Carmelina upon her arrival to bed 15. Carmelina presents for evaluation of abdominal pain. She is alert, oriented x 3, primarily bulgarian speaking. She makes eye contact with RN and is calm and cooperative. She ambulates independently and with steady gait. Respirations are non-labored, RR WNL, room air sat's WNL, she speaks in full sentences, no cyanosis. She denies nausea, no vomiting. No fevers or chills. No changes in her bowel or bladder habits. She provided urine for sample without difficulty. She is currently awaiting initial MD aneesh.
--- NOTE | 2022-05-24 06:36 | ED.ABDPAIN ---
HPI - Abdominal Pain General Chief Complaint: Abdominal Pain Stated Complaint: pain in abd Time Seen by Provider: 05/24/22 06:30 Source: patient Mode of arrival: ambulatory Limitations: no limitations History of Present Illness HPI narrative: Patient comes to the emergency room complaining of left lower quadrant pain. Patient has been evaluated multiple times for bilateral lower quadrant pain, her labs are usually normal and CT scans are normal. Patient states at this time the pain is different. Patient states that she suffers of chronic constipation, patient takes Linzess. Patient denies fever chills, complaining of nausea, no vomiting or diarrhea. Related Data Home Medications Medication Instructions Recorded Confirmed ondansetron HCl 4 mg tablet 4 mg PO Q6H 08/26/20 04/19/22 (Zofran) pantoprazole 40 mg tablet,delayed 40 mg PO BID 08/26/20 04/19/22 release (Protonix) cetirizine 10 mg tablet 10 mg PO DAILY 06/17/21 04/19/22 cholecalciferol (vitamin D3) 25 25 mcg PO QAM 06/17/21 04/19/22 mcg (1,000 unit) tablet doxepin 10 mg capsule 10 mg PO BEDTIME 06/17/21 04/19/22 fluticasone propionate 230 2 puff inhalation 06/17/21 04/19/22 mcg-salmeterol 21 mcg/actuation HFA inhaler (Advair HFA) montelukast 10 mg tablet 10 mg PO QPM 06/17/21 04/19/22 Previous Rx's Medication Instructions Recorded dicyclomine 20 mg tablet 20 mg PO QID #120 tabs 10/27/20 linaclotide 72 mcg capsule 72 mcg PO QAM #30 caps 10/27/20 (Linzess) hyoscyamine sulfate 0.125 mg tablet 0.25 mg PO QID PRN dyspepsia #10 02/28/21 tabs fkbpfypxch-dwluqbojukwlu-pdvfdgcz 1 cap PO Q6H PRN headache #20 caps 01/20/22 50 mg-300 mg-40 mg capsule (Fioricet) naproxen 500 mg tablet,delayed 500 mg PO BID PRN pain, moderate 04/19/22 release 14 days #28 tabs tizanidine 2 mg tablet 2 mg PO BEDTIME PRN muscle 05/09/22 spasticity #30 tabs Allergies Allergy/AdvReac Type Severity Reaction Status Date / Time citalopram [From Celexa] AdvReac Mild ANXIETY Verified 05/23/22 23:59 divalproex sodium AdvReac Mild ANXIETY/JUM Verified 05/23/22 23:59 [From Depakote] PY olanzapine [From Zyprexa] AdvReac Mild ANXIETY Verified 05/23/22 23:59 paroxetine [From Paxil] AdvReac Mild ANXIETY Verified 05/23/22 23:59 Review of Systems Review of Systems Constitutional : No Weight loss, No Fever, No Chills, No Night Sweats, No Fatigue, No Malaise ENT/Mouth : No Hearing loss, No Ear Pain, No Nasal Congestion, No Sinus Pain, No Hoarseness, No sore throat, No Rhinorrhea, No Swallowing Difficulty Eyes: No Eye Pain, No Swelling, No Redness, No Foreign Body, No Discharge, No Vision Changes Cardiovascular : No Chest Pain, No SOB, No Dyspnea on Exertion, No Orthopnea, No Edema, No Palpitations Respiratory : No Cough, No Sputum, No Wheezing, No Smoke Exposure, No Dyspnea Gastrointestinal : Complaining of Nausea, No Vomiting, No Diarrhea, complaining of chronic Constipation, complaining of left lower quadrant pain and left flank pain. Genitourinary : no irregular bleeding, No Dysuria, No Urinary Frequency, No Hematuria, No Urinary Incontinence, No Urgency, No Flank Pain, No Urinary Flow Changes, No Hesitancy Musculoskeletal : No joint pain, No Myalgias, No Joint Swelling Skin : No Skin Lesions, No rash Neuro : No Weakness, No Numbness, No Paresthesias, No Loss of Consciousness, No Dizziness, No Headache Psych : No Anxiety/Panic, No Depression, No SI/HI/AH/VH, No Social Issues, Heme/Lymph: No Bruising, No Bleeding,No Lymphadenopathy Endocrine : No Polyuria, No Polydipsia, No Temperature Intolerance [facility] Past Medical History Surgical History History of appendectomy History of colonoscopy History of hernia repair History of hysterectomy Hx of endoscopy Family History Family History Father History of colon cancer Mother History of diabetes mellitus Social History Social History Alcohol intake: current Alcohol intake frequency: does not drink Patient Tobacco Use Status: Never used Tobacco Use of substances other than those prescribed or required for medical reasons: No Advance Directives: No Advance Directives Information Provided: Yes Sexual orientation: Straight/Heterosexual Gender identity: Female Physical Exam ED Vital Signs: Vital Signs - 24 hr 05/23/22 23:57 05/24/22 04:12 Temperature 97.6 F Pulse Rate 78 70 Respiratory Rate 18 18 Blood Pressure 148/82 H 116/67 Pulse Oximetry 99 98 Oxygen Delivery Method Room Air Room Air BMI result Body Mass Index 38.2 Const Other: Appearance: Alert. Oriented X3. No acute distress. Well-appearing Eyes: Pupils equal, round and reactive to light. ENT: Pharynx normal. Neck: Normal inspection. Neck supple. No lymph nodes noted. No crepitus CVS: Normal heart rate and rhythm. Pulses normal. Normal S1 and S2 Respiratory: No respiratory distress. Breath sounds normal. No Wheezing. No rales Abdomen: Soft , nondistended, seems to be uncomfortable to palpation, no guarding, no rebound Skin: Skin warm and dry. Normal skin color. Normal skin turgor. Extremities: No lower extremity edema. No Lacerations. No Rash Neuro: Oriented X 3. No motor deficit. No sensory deficit. Moving all extremities. No slurred speech. CN 2 through 12 grossly intact Psych: calm, cooperative, normal affect Course Course Course Narrative: Patient has history of constipation, will rule out diverticulitis. I was informed by the patient's nurse that the patient eloped before the CT scan was done. MDM - Abdominal Pain Lab Data Result diagrams: 05/24/22 01:03 05/24/22 01:03 Labs: Lab Results 05/24/22 05/24/22 05/24/22 Range/Units 01:03 01:03 03:27 WBC 7.2 (4.8-10.8) X10*3/uL RBC 4.52 (4.20-5.50) X10*6/uL Hgb 12.3 (12.0-16.0) g/dl Hct 38.7 (37.0-47.0) % MCV 85.6 (80.0-98.0) fL MCH 27.2 (27.0-33.0) pg MCHC 31.8 (31.0-35.0) g/dl RDW 13.5 (11.0-16.0) % Plt Count 305 (160-400) X10*3/uL MPV 8.8 L (9.4-12.3) fL Immature Gran % (Auto) 0.1 (0.0-0.4) % Neut % (Auto) 48.8 (45-73) % Lymph % (Auto) 39.0 (20-40) % [place] % (Auto) 8.2 (2-11) % Eos % (Auto) 3.5 (0-4) % Baso % (Auto) 0.4 (0-2) % Lymph # (Auto) 2.8 (1.2-4.9) X10*3/uL [place] # (Auto) 0.6 (0.1-1.2) X10*3/uL Eos # (Auto) 0.3 (0.0-0.4) X10*3/uL Baso # (Auto) 0.0 (0.0-0.2) X10*3/uL Abs Immat Gran (auto) 0.01 (0.00-0.03) X10*3/uL Absolute Neuts (auto) 3.5 (2.0-8.3) x10*3/uL Absolute Nucleated RBC 0.000 (0.0-0.012) X10*3/uL Nucleated RBC % (auto) 0.0 (0.0-0.2) /100WBC Sodium 142 (135-145) mmol/L Potassium 4.3 (3.3-5.1) mmol/L Chloride 106 (96-108) mmol/L Carbon Dioxide 31 H (22-29) mmol/L Anion Gap 9 L (12-20) BUN 10 (9-16) mg/dL Creatinine 0.92 (0.5-1.4) mg/dL Estim Creat Clear Calc 90.7 Estimated GFR > 60 Random Glucose 109 (60-115) mg/dL Calcium 9.6 (8.4-10.2) mg/dL Total Bilirubin 0.2 (0.0-1.0) mg/dL AST 18 D (5-31) U/L ALT 23 (0-31) U/L Alkaline Phosphatase 84 (39-117) U/L Total Protein 7.3 (6.5-8.0) g/dL Albumin 4.2 (3.5-5.0) g/dL Urine Color YELLOW Urine Appearance CLEAR Urine pH 7.0 (5.0-8.0) Ur Specific [place] 1.020 (1.005-1.025) Urine Protein NEG (NEG-TRACE) MG/DL Urine Glucose (UA) NEG (NEG) MG/DL Urine Ketones NEG (NEG) MG/DL Urine Blood NEG (NEG) Urine Nitrite NEG (NEG) Ur Leukocyte Esterase NEG (NEG) Discharge Plan Discharge Clinical Impression: Abdominal pain Patient Disposition: Elopement Prescriptions: No Action tizanidine 2 mg tablet 2 mg PO BEDTIME PRN (Reason: muscle spasticity) Qty: 30 3RF hyoscyamine sulfate 0.125 mg tablet 0.25 mg PO QID PRN (Reason: dyspepsia) Qty: 10 0RF nfpmpdwblj-ijodepdazbagt-pvqo [Fioricet] 50-300-40 mg capsule 1 cap PO Q6H PRN (Reason: headache) Qty: 20 0RF pantoprazole [Protonix] 40 mg tablet,delayed release (DR/EC) 40 mg PO BID ondansetron HCl [Zofran] 4 mg tablet 4 mg PO Q6H dicyclomine 20 mg tablet 20 mg PO QID Qty: 120 4RF Linzess 72 mcg capsule 72 mcg PO QAM Qty: 30 4RF cholecalciferol (vitamin D3) 25 mcg (1,000 unit) tablet 25 mcg PO QAM Advair HFA 230-21 mcg/actuation HFA aerosol inhaler 2 puff inhalation montelukast 10 mg tablet 10 mg PO QPM doxepin 10 mg capsule 10 mg PO BEDTIME cetirizine 10 mg tablet 10 mg PO DAILY naproxen 500 mg tablet,delayed release (DR/EC) 500 mg PO BID PRN (Reason: pain, moderate) 14 Days Qty: 28 0RF Interventions: ED Discharge Assessment Last Done: 05/24/22 08:13 Discharge Date/Time: 05/24/22 08:14
== END 2022-05-24 08:14 | disposition left against medical advice (07) ==
PROVIDERS: Emergency Provider Emergency Medicine; PCP Family Medicine
DX: R10.32 Left lower quadrant pain (principal)
CPT/HCPCS: 36415; 80053; 81003; 85025; 99212; 99283; 99284

== ENCOUNTER 2022-06-01 08:56 | Outpatient (REF) | payer MEDICAID, SELFPAY ==
--- NOTE | 2022-06-01 08:59 | EMG_ITS ---
Right tibial and peroneal motor studies were performed. Right superficial peroneal and sural sensory studies were performed. Tibial H-reflex was obtained, and the EMG study was performed. IMPRESSION: 1. Right mid to lower lumbar radiculopathy. 2. 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 MD JAMISON Rubio/ELLIE / [id number]
== END 2022-06-01 08:57 | disposition home or self-care (01) ==
LOC: HO.NEURO 08:56
PROVIDERS: PCP Family Medicine; Visit Provider Nurse Practitioner Family
DX: R20.2 Paresthesia of skin (principal)
CPT/HCPCS: 95886; 95909

== ENCOUNTER → 2022-06-06 08:46 | Outpatient (BNVA) | payer MEDICAID, SELFPAY | PROVIDERS: PCP Family Medicine; Visit Provider Nurse Practitioner Family | DX: M53.3 Sacrococcygeal disorders, not elsewhere classified (principal); M62.830 Muscle spasm of back; M47.816 Spondylosis without myelopathy or radiculopathy, lumbar region; R20.2 Paresthesia of skin; Z79.899 Other long term (current) drug therapy | CPT/HCPCS: 99212 ==

== ENCOUNTER 2022-06-21 09:50 | Outpatient (REF) | payer MEDICAID, SELFPAY ==
--- NOTE | ~2022-06-21 | US_ITS ---
EXAMINATION: US RETROPERITONEAL LIMITED (RENAL ONLY) CLINICAL INFORMATION: Calculus of kidney. COMPARISON: CT abdomen and pelvis 01/31/2022. X-ray KUB 08/16/2021 and 12/30/2018. Renal ultrasound 04/25/2021 and 03/15/2021. TECHNIQUE: Real-time imaging of the kidneys. FINDINGS: RIGHT KIDNEY: 12.4 x 4.7 x 6.3 cm (SAG x AP x TRV). The kidney is normal in size, contour, and echogenicity. Renal cortical thickness is normal. No calculi or focal parenchymal lesions. No hydronephrosis. LEFT KIDNEY: 12.5 x 6.0 x 5.0 cm (SAG x AP x TRV). The kidney is normal in size, contour, and echogenicity. Renal cortical thickness is normal. There is a 5 mm echogenic density with twinkle artifact in the midpole suggestive of a stone. No focal parenchymal lesions or hydronephrosis. US/US renal BI IMPRESSION: Left renal stone. No right stone seen.
== END 2022-06-21 09:51 | disposition home or self-care (01) ==
LOC: HO.US 09:50
PROVIDERS: Visit Provider Urology
DX: N20.0 Calculus of kidney (principal)
CPT/HCPCS: 76775

== ENCOUNTER → 2022-07-19 16:04 | Outpatient (BNVA) | payer MEDICAID, SELFPAY | PROVIDERS: PCP Family Medicine; Visit Provider Anesthesiology | DX: M53.3 Sacrococcygeal disorders, not elsewhere classified (principal); M62.830 Muscle spasm of back; M47.816 Spondylosis without myelopathy or radiculopathy, lumbar region; R20.2 Paresthesia of skin | CPT/HCPCS: 99212 ==

== ENCOUNTER → 2022-08-15 15:51 | Outpatient (BNVA) | payer MEDICAID, SELFPAY | PROVIDERS: PCP Family Medicine; Visit Provider Nurse Practitioner | DX: K59.04 Chronic idiopathic constipation (principal); K21.9 Gastro-esophageal reflux disease without esophagitis; R10.9 Unspecified abdominal pain; Z80.0 Family history of malignant neoplasm of digestive organs | CPT/HCPCS: 99212 ==

== ENCOUNTER 2022-08-25 05:58 | Day surgery (SDC) | payer MEDICAID, SELFPAY ==
[2022-08-21 14:53] VITALS: BMI 37.3
--- NOTE | 2022-08-24 09:34 | P.CONAN_ITS ---
Documented by User: Shauna Cruz NP 08/24/22 09:37 HPI - Anesthesia Eval Consult details Narrative: 52yo Right Diagnostic L2-L3-L4-DR L5 Medial Branch Block with Ropivacaine s/p Sacroiliac joint injection 03/2022 with MAC PMFSH Active Problems Active Problems: All Active Problems (Updated 08/21/22 @ 14:37 by Jessica Diaz RN) Chronic idiopathic constipation (Acute) Nausea and vomiting (Acute) GERD (gastroesophageal reflux disease) (Acute) Upper abdominal pain (Acute) Well woman exam (Acute) Female pelvic pain (Acute) Kidney stones (Acute) Abdominal cramping (Acute) Tendinopathy of right rotator cuff (Acute) Low back pain (Acute) Sacroiliac joint pain (Acute) Lumbar radiculopathy, right (Acute) Lumbar facet arthropathy (Acute) Muscle spasm of back (Acute) Paresthesia of right leg (Acute) Family history of colon cancer in father (Acute) Past Medical History Medical History (Updated 08/21/22 @ 14:37 by Jessica Diaz RN) GERD (gastroesophageal reflux disease) Low back pain Migraines Renal calculi Family History Family History Father History of colon cancer Mother History of diabetes mellitus Family history of problems with anesthesia: No Surgical History Surgical History (Updated 08/21/22 @ 14:41 by Jessica Diaz RN) History of appendectomy History of colonoscopy History of hernia repair History of hysterectomy History of surgery Hx of endoscopy History of Problems with Anesthesia: No Social History Social History Alcohol intake: current Alcohol intake frequency: does not drink Patient Tobacco Use Status: Never used Tobacco Use of substances other than those prescribed or required for medical reasons: No Are you DNR?: No Advance Directives: No Advance Directives Information Provided: Yes Sexual orientation: Straight/Heterosexual Gender identity: Female Meds Allergies Allergy/AdvReac Type Severity Reaction Status Date / Time citalopram [From Celexa] AdvReac Mild ANXIETY Verified 08/15/22 16:02 divalproex sodium AdvReac Mild ANXIETY/JUM Verified 08/15/22 16:02 [From Depakote] PY olanzapine [From Zyprexa] AdvReac Mild ANXIETY Verified 08/15/22 16:02 paroxetine [From Paxil] AdvReac Mild ANXIETY Verified 08/15/22 16:02 Home Medications Medication Instructions Recorded Confirmed Last Taken Type ondansetron HCl 4 mg tablet 4 mg PO Q6H 08/26/20 08/21/22 Unknown History (Zofran) cetirizine 10 mg tablet 10 mg PO DAILY 06/17/21 08/21/22 Unknown History cholecalciferol (vitamin D3) 25 25 mcg PO QAM 06/17/21 08/21/22 Unknown History mcg (1,000 unit) tablet doxepin 10 mg capsule 10 mg PO BEDTIME 06/17/21 08/21/22 Unknown History fluticasone propionate 230 2 puff inhalation BID 06/17/21 08/21/22 Unknown History mcg-salmeterol 21 mcg/actuation HFA inhaler (Advair HFA) montelukast 10 mg tablet 10 mg PO QPM 06/17/21 08/21/22 Unknown History hyoscyamine sulfate 0.125 mg tablet 0.25 mg PO QID PRN dyspepsia 08/15/22 08/21/22 Unknown History tizanidine 2 mg capsule 2 mg PO TID PRN Muscle Spasm 08/15/22 08/21/22 Unknown History Exam Exam Date and Time: August 24, 2022 0934 Height,Weight and Vital Signs: Height 5 ft 6 in Weight 104.78 kg Pertinent Lab Results Pertinent Lab Results: Laboratory Tests 05/24/22 05/24/22 01:03 01:03 WBC 7.2 Hgb 12.3 Hct 38.7 Plt Count 305 Sodium 142 Potassium 4.3 Chloride 106 Carbon Dioxide 31 H BUN 10 Creatinine 0.92 Assessment and Plan Assessment Anesthesia Assessment: Chart Reviewed Final Anesthetic Review Family History of Problems with Anesthesia: No History of Problems with Anesthesia: No Documented by User: Alexis Gavin MD 08/25/22 08:19 [facility] Past Medical History Medical History (Updated 08/21/22 @ 14:37 by Jessica Diaz RN) GERD (gastroesophageal reflux disease) Low back pain Migraines Renal calculi Family History Family History Father History of colon cancer Mother History of diabetes mellitus Surgical History Surgical History (Updated 08/21/22 @ 14:41 by Jessica Diaz RN) History of appendectomy History of colonoscopy History of hernia repair History of hysterectomy History of surgery Hx of endoscopy Social History Social History Alcohol intake: current Alcohol intake frequency: does not drink Patient Tobacco Use Status: Never used Tobacco Use of substances other than those prescribed or required for medical reasons: No Are you DNR?: No Advance Directives: No Advance Directives Information Provided: Yes Sexual orientation: Straight/Heterosexual Gender identity: Female Meds Allergies Allergy/AdvReac Type Severity Reaction Status Date / Time citalopram [From Celexa] AdvReac Mild ANXIETY Verified 08/15/22 16:02 divalproex sodium AdvReac Mild ANXIETY/JUM Verified 08/15/22 16:02 [From Depakote] PY olanzapine [From Zyprexa] AdvReac Mild ANXIETY Verified 08/15/22 16:02 paroxetine [From Paxil] AdvReac Mild ANXIETY Verified 08/15/22 16:02 Home Medications Medication Instructions Recorded Confirmed Last Taken Type ondansetron HCl 4 mg tablet 4 mg PO Q6H 08/26/20 08/21/22 Unknown History (Zofran) cetirizine 10 mg tablet 10 mg PO DAILY 06/17/21 08/21/22 Unknown History cholecalciferol (vitamin D3) 25 25 mcg PO QAM 06/17/21 08/21/22 Unknown History mcg (1,000 unit) tablet doxepin 10 mg capsule 10 mg PO BEDTIME 06/17/21 08/21/22 Unknown History fluticasone propionate 230 2 puff inhalation BID 06/17/21 08/21/22 Unknown History mcg-salmeterol 21 mcg/actuation HFA inhaler (Advair HFA) montelukast 10 mg tablet 10 mg PO QPM 06/17/21 08/21/22 Unknown History hyoscyamine sulfate 0.125 mg tablet 0.25 mg PO QID PRN dyspepsia 08/15/22 08/21/22 Unknown History tizanidine 2 mg capsule 2 mg PO TID PRN Muscle Spasm 08/15/22 08/21/22 Unknown History Exam Airway Mallampati Class: II TM Dist: >3cm Loose/Missing/Broken Teeth: No Heart: rrr Lungs: clear Assessment and Plan Final Anesthetic Review NPO: Yes ASA Class: II Final Preanesthetic Review: No Changes in Pt Med Stat, Meds/Allgs Chart Reviewed, Consent Obtained/Reviewed and Anes Risks/Benef Reviewed Patient Risk: Low Procedure Risk: Low Anesthetic Plan Anesthetic Plan: MAC: Disposition: Standard PACU
--- NOTE | ~2022-08-25 | FL_ITS ---
EXAMINATION: XR FLUOROSCOPY WITH IMAGES CLINICAL INFORMATION: Diagnostic right medial branch blocks. COMPARISON: CT abdomen and pelvis 01/31/2022 TECHNIQUE: Fluoroscopy performed by Dr. Arthur Juarez. Fluoroscopy time: 0.5 minutes. Cumulative Dose: 25.8 mGy. DAP: 7.04 Gycm2. Images: 4. FINDINGS: There are spinal needles overlying the outer right L2, L3, L4, and L5 neural foramen. There is contrast seen in the respective nerve sheaths. Some early transforaminal epidural extension is suggested. No visible vascular communication. FL/FL guidance in OR IMPRESSION: Fluoroscopy for pain management procedures.
--- NOTE | 2022-08-25 07:25 | P.HPSUR_ITS ---
Pre-Procedural Eval Section A Date of Service: 08/25/22 The patient is an INPATIENT: No Changes since office visit: Yes Patient answered all questions The History & Physical has been completed within 30 days and I have reviewed it.: No Section B Chief Complaint: Spondylosis without myelopathy or radiculopathy, Details of Present Illness: as above Relevant Family History (Specify if Yes): No Relevant Social History: None Present Medications: None Medical History: No relevant PMH History of Previous Operations: No relevant previous surgery Allergies: Allergies Allergy/AdvReac Type Severity Reaction Status Date / Time citalopram [From Celexa] AdvReac Mild ANXIETY Verified 08/15/22 16:02 divalproex sodium AdvReac Mild ANXIETY/JUM Verified 08/15/22 16:02 [From Depakote] PY olanzapine [From Zyprexa] AdvReac Mild ANXIETY Verified 08/15/22 16:02 paroxetine [From Paxil] AdvReac Mild ANXIETY Verified 08/15/22 16:02 Review of Systems Sugical H&P ROS: Negative: Constitution, Cardiovascular, Respiratory, Neurological, Psychiatric, Hem-Onc, Allergic/Immunologic, Gastrointestinal, Genitourinary, Musculoskeletal, Integumentary, Endocrine and Eyes/Ears/ Nose/Throat Exam Surgical H&P Exam: Normal: HEENT, Normal: Heart, Normal: Lungs, Normal: Extremities, Normal: Abdomen, Normal: Skin and Normal: Neurological Plan Diagnosis/Plan: Unchanged I have reviewed the history and physical and performed a pertinent physical examination on my patient. No changes have occurred unless specified.
--- NOTE | 2022-08-25 07:30 | P.OP_ITS ---
Operative Note Operative Note Date of Service: 08/25/22 Narrative: Right sided diagnostic medial branch block L2, L3, L4, dorsal ramus L5 . ? Informed consent was explained to the patient. All questions were explained and? answered.? The patient was taken inside the operating room where she was positioned prone on the operating table. Time-out was performed delineating correct site, side, the nature of the procedure, patient's allergy, preoperative antibiotic if needed.? All operating room staff was participating in OR time-out procedure. The patient was moderately sedated after ASA monitors were applied. The lower back was prepped with ChloraPrep and draped with sterile towels.? C- arm was brought over the operating field and sq picture of L3, L4, L5 vertebra and S1 AREA were delineated on the screen.? Point of interest were delineated as connection of superior articular process of L3, L4 and L5 vertebra on the right with corresponding transverse processes of the same vertebra, as well as connection of the sacral alae on the right with superior articular process of S1.? The projection of the point of interest to the skin were injected with the small amount of local anesthetic lidocaine 2% 1-1.5 cc.? After that 5 in spinal needle was driven sequentially to the points of interest in tunnel vision fashion. After needle gently contacted the bone at the point of interests the needle was injected with small amount of the contrast.? The injection of the contrast did not demonstrate any intravascular or intrathecal spread of the contrast.? After that injection of the ropivacaine 0.5%-1cc was performed at each needle location. ? Upon completion of the injections? needle was? removed and sterile Band-Aids were applied.? The? patient was taken outside of the operating room to recovery room where she recovered uneventfully
[2022-08-25 07:51] VITALS: BMI 37.4
[2022-08-25 07:55] VITALS: BP 126/68; PULSE 64; RESP 16; TEMP 36.1; O2SAT 99
[2022-08-25] MEDS: Lactated Ringers 1,000 ML 100 ML IVCONT (08:08)
[2022-08-25 08:54] VITALS: BP 108/69; PULSE 85; RESP 18; TEMP 36.3; O2SAT 97
--- NOTE | 2022-08-25 08:56 | P.BOP_ITS ---
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 Post-op diagnosis: same Procedure: Unilateral right medial branch block L2-L3 L4 d dorsal ramus L5 diagnostic w ith ropivacaine Surgeon: Arthur Juarez MD Anesthesia: MAC Was an Sponsorship Manager used for this Procedure?: No Estimated blood loss (mL): 0 Condition: stable Disposition: PACU
[2022-08-25 09:09] VITALS: BP 111/63; PULSE 69; RESP 18; O2SAT 100
== END 2022-08-25 10:08 | disposition home or self-care (01) ==
PROVIDERS: PCP Family Medicine; Visit Provider Anesthesiology
PROC: (CPT 64493; principal; 2022-08-25 08:40)
DX: M47.816 Spondylosis without myelopathy or radiculopathy, lumbar region (principal); M53.3 Sacrococcygeal disorders, not elsewhere classified; M62.830 Muscle spasm of back; R20.2 Paresthesia of skin; Z79.899 Other long term (current) drug therapy; Z88.8 Allergy status to other drugs, medicaments and biological substances
CPT/HCPCS: 64493; 64494; J2250

== ENCOUNTER 2022-10-03 11:06 | Day surgery (SDC) | payer MEDICAID, SELFPAY ==
--- NOTE | ~2022-10-03 | FL_ITS ---
EXAMINATION: XR FLUOROSCOPY WITH IMAGES CLINICAL INFORMATION: Sprint nerve stimulator COMPARISON: Fluoroscopic spot views 08/25/2022 TECHNIQUE: Fluoroscopy Supervised By: Dr. Arthur Juarez. Fluoroscopy Time: 0.2 minutes. Cumulative Dose: 10.9 mGy. DAP: 2.97 Gycm2. Images: 2. FINDINGS: Fluoroscopic spot images demonstrate fine wires overlying the left and right L5 lamina. FL/FL guidance in OR IMPRESSION: Fluoroscopy for pain management procedures.
[2022-10-03 11:07] VITALS: BP 150/69; PULSE 91; RESP 17; TEMP 36.2; O2SAT 99
--- NOTE | 2022-10-03 11:09 | MHC.SHP ---
Pre-Procedural Eval Section A Date of Service: 10/03/22 The patient is an INPATIENT: No Changes since office visit: Yes Changes in Medication The History & Physical has been completed within 30 days and I have reviewed it.: No Section B Chief Complaint: Spondylosis without myelopathy or radiculopathy Details of Present Illness: as above Relevant Family History (Specify if Yes): No Relevant Social History: None Present Medications: see Short Stay Collaborative assessment Medical History: No relevant PMH History of Previous Operations: No relevant previous surgery Allergies: Allergies Allergy/AdvReac Type Severity Reaction Status Date / Time citalopram [From Celexa] AdvReac Mild ANXIETY Verified 08/15/22 16:02 divalproex sodium AdvReac Mild ANXIETY/JUM Verified 08/15/22 16:02 [From Depakote] PY olanzapine [From Zyprexa] AdvReac Mild ANXIETY Verified 08/15/22 16:02 paroxetine [From Paxil] AdvReac Mild ANXIETY Verified 08/15/22 16:02 Review of Systems Sugical H&P ROS: Negative: Constitution, Cardiovascular, Respiratory, Neurological, Psychiatric, Hem-Onc, Allergic/Immunologic, Gastrointestinal, Genitourinary, Musculoskeletal, Integumentary, Endocrine and Eyes/Ears/Nose/Throat Exam Surgical H&P Exam: Normal: HEENT, Normal: Heart, Normal: Lungs, Normal: Extremities, Normal: Abdomen, Normal: Skin and Normal: Neurological Plan Diagnosis/Plan: Unchanged I have reviewed the history and physical and performed a pertinent physical examination on my patient. No changes have occurred unless specified.
[2022-10-03 11:24] VITALS: BMI 37.3
[2022-10-03] MEDS: LORazepam 1 MG TABLET PO (11:35)
[2022-10-03] MEDS: ceFAZolin Sodium/Dextrose,Iso 2 GM/50 ML PIGGYBACK IV (11:35)
--- NOTE | 2022-10-03 12:07 | PM.OP ---
Brief Operative Note Date of Service: 10/03/22 Pre-op diagnosis: spondylosis lumbar without myelopathy or radiculopathy Post-op diagnosis: same Procedure: SPRINT PNS L5 bilateral Implants: none permanent Surgeon: Arthur Juarez MD Anesthesia: local Was an Fire Protection Engineering Technician used for this Procedure?: No Estimated blood loss (mL): 0 Condition: stable Disposition: PACU
--- NOTE | 2022-10-03 12:08 | W.PM.OPN ---
Operative Note Operative Note Date of Service: 10/03/22 Narrative: Percutaneous implantation of peripheral nerve stimulation Sprint system. After the risks, benefits and alternatives were discussed with the patient and informed consent was obtained, patient was placed in the prone position and padded to foster comfort. Time out was performed delineating correct site and side of the procedure , name and of the patient, patient participated in time out procedure. The patient recieved 2 g of cefasolin 15 minutes before onset of the procedure. Lower back of the patient was prepped with chloroprep and draped with full body fenestrated drape. C-arm was brought over the operating field and clear picture of the L5 lamina on the right was delineated on the screen. The upper central portion of the lamina was chosen as a target of the needle tip incertion . After identifying and marking the intended target, the skin around the planned entry point and the subcutaneous tissues were injected with local anesthetic forming skin wheal.. A percutaneous sleeve and stimulating probe lead introduction system were assembled, inserted and advanced through the skin wheal to the? point of interest under C-arm view in tunnel vision fashion, the introducer needle was delivered to a location in proximity to the nerve. Multiple stimulation parameters were used to deliver stimulation to the? nerve in concert with stimulating at multiple positions around the nerve. Nerve target acquisition was confirmed noting generation of? in the? corresponding to the nerve being stimulated. Various electrical parameter combinations were tested, and the lead location was adjusted (physically relocated) until the patient indicated? overlapping the distribution of the patient?s typical region of pain. The stimulating probe was removed from the introducer and a percutaneous lead was guided through the needle and delivered to a location in similar proximity to the nerve. Final location was verified with electrical stimulation. The introducer needle was removed, and the exposed end of the percutaneous lead was attached to an external stimulator unit. Various electrical parameter combinations were again tested until the patient indicated paresthesia or muscle tension overlapping the distribution of the patient?s typical region of pain. After confirming that lead impedance was in the normal range, the external unit was detached, the needle was removed, and the lead was anchored at the skin. After that the procedure was repeated at the Left L5 lamina in the mirroring fashion. After confirming the lead placement again at normal range impedance the external unit was detached? the needle was removed and the lead was anchored to the skin with the skin glue. The leads were? threaded into the connector block and electrical continuity and desired patient response was confirmed. The connector block was attached to the external stimulator unit. The site was covered with a sterile occlusive dressing and an? image was taken to document final placement. Upon completion of the procedure the patient was taken outside the OR to PACU? where she recovered uneventfully she went home without immediate complications.
[2022-10-03 12:09] VITALS: BP 151/89; PULSE 73; RESP 17; TEMP 36.7; O2SAT 97
== END 2022-10-03 12:55 | disposition home or self-care (01) ==
PROVIDERS: PCP Family Medicine; Visit Provider Anesthesiology
PROC: (CPT 64555; principal; 2022-10-03 11:30)
DX: M47.816 Spondylosis without myelopathy or radiculopathy, lumbar region (principal); M53.3 Sacrococcygeal disorders, not elsewhere classified; M62.830 Muscle spasm of back; Z88.8 Allergy status to other drugs, medicaments and biological substances
CPT/HCPCS: 64555; C1778; J0690; J2795

== ENCOUNTER → 2022-10-18 11:03 | Outpatient (BNVA) | payer MEDICAID, SELFPAY | PROVIDERS: PCP Family Medicine; Visit Provider Anesthesiology | DX: Z48.01 Encounter for change or removal of surgical wound dressing (principal) | CPT/HCPCS: 99211 ==

== ENCOUNTER → 2022-10-24 10:19 | Outpatient (BNVA) | payer MEDICAID, SELFPAY | PROVIDERS: PCP Family Medicine; Visit Provider Anesthesiology | DX: Z13.89 Encounter for screening for other disorder (principal) ==

== ENCOUNTER → 2022-10-31 10:24 | Outpatient (BNVA) | payer MEDICAID, SELFPAY | PROVIDERS: PCP Family Medicine; Visit Provider Anesthesiology | DX: Z96.82 Presence of neurostimulator (principal) | CPT/HCPCS: 99211 ==

== ENCOUNTER → 2022-11-07 10:43 | Outpatient (BNVA) | payer MEDICAID, SELFPAY | PROVIDERS: PCP Family Medicine; Visit Provider Anesthesiology | DX: Z48.00 Encounter for change or removal of nonsurgical wound dressing (principal); Z96.82 Presence of neurostimulator | CPT/HCPCS: 99211 ==

== ENCOUNTER → 2022-11-14 10:55 | Outpatient (BNVA) | payer MEDICAID, SELFPAY | PROVIDERS: PCP Family Medicine; Visit Provider Anesthesiology | DX: Z48.01 Encounter for change or removal of surgical wound dressing (principal) | CPT/HCPCS: 99211 ==

== ENCOUNTER → 2022-11-21 10:55 | Outpatient (BNVA) | payer MEDICAID, SELFPAY | PROVIDERS: PCP Family Medicine; Visit Provider Anesthesiology | DX: Z48.01 Encounter for change or removal of surgical wound dressing (principal) | CPT/HCPCS: 99211 ==

== ENCOUNTER → 2022-11-28 11:04 | Outpatient (BNVA) | payer MEDICAID, SELFPAY | PROVIDERS: PCP Family Medicine; Visit Provider Anesthesiology | DX: Z48.00 Encounter for change or removal of nonsurgical wound dressing (principal); Z97.8 Presence of other specified devices | CPT/HCPCS: 99211 ==

== ENCOUNTER 2022-11-29 08:55 | Outpatient (REF) | payer MEDICAID, SELFPAY ==
--- NOTE | ~2022-11-29 | XR_ITS ---
EXAMINATION: RIGHT SHOULDER AND AND RIGHT KNEE CLINICAL INFORMATION: Pain in right shoulder COMPARISON: None TECHNIQUE: 3 views right knee and 4 views right shoulder. FINDINGS: Right shoulder: There is no visible acute fracture, dislocation or subluxation seen. The glenohumeral and AC joint space is maintained normal. The soft tissues are normal. Right knee: The tricompartment compartment joint space is maintained normal. No bony erosive changes. No loose body seen. The soft tissues are normal. XR/XR shoulder RT min 2V IMPRESSION: 1. Unremarkable right shoulder exam. 2. Unremarkable right knee exam.
--- NOTE | ~2022-11-29 | XR_ITS ---
EXAMINATION: RIGHT SHOULDER AND AND RIGHT KNEE CLINICAL INFORMATION: Pain in right shoulder COMPARISON: None TECHNIQUE: 3 views right knee and 4 views right shoulder. FINDINGS: Right shoulder: There is no visible acute fracture, dislocation or subluxation seen. The glenohumeral and AC joint space is maintained normal. The soft tissues are normal. Right knee: The tricompartment compartment joint space is maintained normal. No bony erosive changes. No loose body seen. The soft tissues are normal. XR/XR knee RT 3V IMPRESSION: 1. Unremarkable right shoulder exam. 2. Unremarkable right knee exam.
== END 2022-11-29 08:56 | disposition home or self-care (01) ==
LOC: HO.XRAY 08:55
PROVIDERS: PCP Family Medicine; Visit Provider Nurse Practitioner Family
DX: M25.511 Pain in right shoulder (principal); M25.561 Pain in right knee
CPT/HCPCS: 73030; 73562; 99212

== ENCOUNTER 2022-11-30 22:51 | Emergency (ER) | payer MEDICAID, SELFPAY ==
--- NOTE | ~2022-11-30 | CT_ITS ---
EXAMINATION: CT ABDOMEN AND PELVIS WITHOUT CONTRAST CLINICAL INFORMATION: Right flank pain COMPARISON: 01/31/2022 TECHNIQUE: Multidetector volumetric imaging was performed from the superior aspect of the liver through the pubic symphysis. Sagittal and coronal reformatted images were obtained on the technologist's workstation. This CT examination was performed using dose optimization techniques as appropriate, variously including the following: *Automated exposure control *Adjustment of mA and/or kV according to patient size (this includes techniques or standardized protocols for targeted exams where dose is matched to indication/reason for exam; i.e. extremities or head) *Use of iterative reconstruction technique DLP: 929 mGy-cm FINDINGS: LUNG BASES: The visualized lung bases are unremarkable. LIVER, GALLBLADDER, AND BILIARY TREE: The liver is normal in size, shape, and attenuation. No focal hepatic lesion or biliary ductal dilatation is present. Gallbladder appears somewhat contracted. PANCREAS: Unremarkable. SPLEEN: Unremarkable. ADRENAL GLANDS: Unremarkable. KIDNEYS AND URETERS: There is mild right hydronephrosis with no ureteral calculus seen. There are a few scattered calculi in the right kidney measuring up to 3 mm. There is mild left hydronephrosis with a 3 mm calculus at the left ureteropelvic junction. Of note, the degree of hydronephrosis bilaterally appears similar to 01/31/2022. BLADDER: Mildly distended and grossly unremarkable. GASTROINTESTINAL TRACT: No evidence of bowel obstruction or significant wall thickening. Patient appears to be status post appendectomy. No free fluid or free air is seen. ABDOMINAL WALL: No significant hernia is appreciated. LYMPH NODES: Normal. VASCULAR: Mild scattered atherosclerotic calcifications. PELVIC VISCERA: Unremarkable. OSSEOUS STRUCTURES: Unremarkable. CT/CT abdomen pelvis wo IV con IMPRESSION: Mild bilateral hydronephrosis with a 3 mm calculus at the left ureteropelvic junction. No right ureteral calculus identified. Of note, the degree of renal pelvic dilation bilaterally appears similar to 01/31/2022.
[2022-11-30 23:11] VITALS: BP 153/77; PULSE 89; RESP 20; TEMP 36.1; O2SAT 98; BMI 37.8
[2022-12-01 01:23] LABS: Appearance Urine Cloudy; Color Urine Yellow; Glucose Urine UA Negative (Negative); Leukocyte Esterase Urine Trace (Negative); Nitrite Urine Negative (Negative); PH 5.5 (5.0-9.0); Specific Gravity - Urine 1.025 (1.005-1.025); UMIC TRIGGER UACC YES; Urine Blood Large (3+) (Negative); Urine Ketones Negative (Negative); Urine Protein 100 (2+) mg/dL (Neg-Trace)
[2022-12-01 01:28] LABS: Bacteria Urine None Seen (None Seen); Hyaline Casts Urine 0-2 /LPF (0-2); RBC Urine >20 /HPF (0-2); Squamous Epithelial Cell Urine 0-2 /HPF (0-2); WBC Urine 0-5 /HPF (0-5)
[2022-12-01 01:30] LABS: MANUAL DIFF FLAG NO
[2022-12-01 01:31] LABS: Basophils Percent Auto 0.4 % (0-2); Eosinophils Absolute Auto 0.1 X10*3/uL (0.0-0.4); Eosinophils Percent Auto 1.9 % (0-4); Hematocrit 38.2 % (37.0-47.0); Hemoglobin 12.3 g/dl (12.0-16.0); Imm Gran Abs Auto 0.01 X10*3/uL (0.00-0.03); Imm Gran Pct Auto 0.1 % (0.0-0.4); Lymphocytes Absolute Auto 3.5 X10*3/uL (1.2-4.9); Lymphocytes Percent Auto 48.1 % (20-40); Mean Corpuscular HGB Conc 32.2 g/dl (31.0-35.0); Mean Corpuscular Hemoglobin 27.2 pg (27.0-33.0); Mean Corpuscular Volume 84.3 fL (80.0-98.0); Mean Platelet Volume 8.6 fL (9.4-12.3); Monocytes Absolute Auto 0.6 X10*3/uL (0.1-1.2); Monocytes Percent Auto 7.8 % (2-11); Neutrophils Percent Auto 41.7 % (45-73); Platelet Count 312 X10*3/uL (160-400); Red Blood Count 4.53 X10*6/uL (4.20-5.50); Red Cell Distribution Width 13.4 % (11.0-16.0); White Blood Count 7.2 X10*3/uL (4.8-10.8)
--- NOTE | 2022-12-01 01:34 | ED.FEMALEGU ---
HPI - Female Genitourinary General Chief complaint: Urogenital-Female Stated complaint: abdominal pain Time Seen by Provider: 12/01/22 01:15 Source: patient and diplomatic interpreter Mode of arrival: ambulatory History of Present Illness HPI Narrative: 52-year-old female with history of renal colic presents with right flank pain that began after emptying her bladder at about 19:00 hours. Patient denies any associated fever, chills, nausea, vomiting, diarrhea. Related Data Home Medications Medication Instructions Recorded Confirmed ondansetron HCl 4 mg tablet 4 mg PO Q6H 08/26/20 11/29/22 (Zofran) cetirizine 10 mg tablet 10 mg PO DAILY 06/17/21 11/29/22 cholecalciferol (vitamin D3) 25 25 mcg PO QAM 06/17/21 11/29/22 mcg (1,000 unit) tablet doxepin 10 mg capsule 10 mg PO BEDTIME 06/17/21 11/29/22 fluticasone propionate 230 2 puff inhalation BID 06/17/21 11/29/22 mcg-salmeterol 21 mcg/actuation HFA inhaler (Advair HFA) montelukast 10 mg tablet 10 mg PO QPM 06/17/21 11/29/22 hyoscyamine sulfate 0.125 mg tablet 0.25 mg PO QID PRN dyspepsia 08/15/22 11/29/22 tizanidine 2 mg capsule 2 mg PO TID PRN Muscle Spasm 08/15/22 11/29/22 vitamin B complex (B 1 tab PO DAILY 11/29/22 11/29/22 Complex-Vitamin B12 tablet) Previous Rx's Medication Instructions Recorded uoqpwpupos-tastyuxaimlfu-ddobarpl 1 cap PO Q6H PRN headache #20 caps 01/20/22 50 mg-300 mg-40 mg capsule (Fioricet) cyclobenzaprine 10 mg tablet 10 mg PO TID PRN muscle spasm #90 05/24/22 tabs dicyclomine 20 mg tablet 20 mg PO QID 30 days #120 tabs 08/15/22 linaclotide 72 mcg capsule 72 mcg PO QAM #30 caps 08/15/22 (Linzess) pantoprazole 40 mg tablet,delayed 40 mg PO BID #60 tabs 08/15/22 release (Protonix) peg 3350-electrolytes 236 240 ml PO Q10M 1 day #4,000 mL 08/15/22 gram-22.74 gram-6.74 gram-5.86 gram solution (Golytely) ketorolac 10 mg tablet 10 mg PO Q6H PRN pain 5 days #20 12/01/22 tabs prednisone 20 mg tablet 20 mg PO DAILY #4 tabs 12/01/22 tamsulosin 0.4 mg capsule (Flomax) 0.4 mg PO BEDTIME #4 caps 12/01/22 Allergies Allergy/AdvReac Type Severity Reaction Status Date / Time citalopram [From Celexa] AdvReac Mild ANXIETY Verified 11/30/22 23:11 divalproex sodium AdvReac Mild ANXIETY/JUM Verified 11/30/22 23:11 [From Depakote] PY olanzapine [From Zyprexa] AdvReac Mild ANXIETY Verified 11/30/22 23:11 paroxetine [From Paxil] AdvReac Mild ANXIETY Verified 11/30/22 23:11 Review of Systems Review of Systems: Pertinent positives and negatives as stated in HPI [facility] Past Medical History Source: nursing notes reviewed Medical History GERD (gastroesophageal reflux disease) Low back pain Migraines Osteoarthritis of right shoulder Renal calculi Surgical History History of appendectomy History of colonoscopy History of hernia repair History of hysterectomy History of surgery Hx of endoscopy Family History Family History Father History of colon cancer Mother History of diabetes mellitus Social History Social History Alcohol intake: current Alcohol intake frequency: holidays/special occasions only Patient Tobacco Use Status: Never used Tobacco Smoked in Last 30 Days: No Use of substances other than those prescribed or required for medical reasons: No Advance Directives: No Advance Directives Information Provided: Yes Patient : No Sexual orientation: Straight/Heterosexual Gender identity: Female Physical Exam Vital Signs: Vital Signs: Last Vital Signs Temp 97.6 F 12/01/22 04:01 Pulse 71 12/01/22 04:01 Resp 16 12/01/22 04:01 BP 153/77 H 11/30/22 23:11 Pulse Ox 99 12/01/22 04:01 O2 Del Method 12/01/22 04:01 BMI result Body Mass Index 37.8 VITAL SIGNS: Reviewed. GENERAL: Well developed, well nourished, in no acute distress. HEAD: Normocephalic/atraumatic EYES: PERRLA, EOMI LUNGS: Normal breath sounds. No adventitious sounds or accessory muscle use. SpO2<98> CARDIOVASCULAR: Regular rate and rhythm without noted murmurs ABDOMEN: Soft, lower abdominal tenderness without rebound, non-distended with bowel sounds. MUSCULOSKELETAL: No tenderness, deformities, or effusions noted on gross inspection. EXTREMITIES: No cyanosis, clubbing or edema. SKIN: Inspection of the skin reveals no rashes NEUROLOGIC: Alert and oriented x 4. Strength and sensation to light touch were grossly intact x 4. Medications Administered Discontinued Medications Generic Name Dose Route Start Last Admin Trade Name Freq PRN Reason Stop Dose Admin Fentanyl 25 mcg 12/01/22 03:51 12/01/22 04:00 Fentanyl Citrate/Pf 100 Mcg/2 Ml Vial IVPUSH 12/01/22 03:52 25 mcg ONCE ONE Administration Protocol Sodium Chloride 1,000 mls @ 999 mls/hr 12/01/22 01:45 12/01/22 04:01 Ns IV 12/01/22 02:45 Infused .Q1H1M ADAL Infusion Ketorolac Tromethamine 15 mg 12/01/22 01:33 12/01/22 01:53 Ketorolac Tromethamine 30 Mg/Ml Vial IVPUSH 12/01/22 01:34 15 mg ONCE ONE Administration Tamsulosin HCl 0.4 mg 12/01/22 01:33 12/01/22 01:52 Tamsulosin Hcl 0.4 Mg Capsule PO 12/01/22 01:34 0.4 mg ONCE ONE Administration Medical Decision Making Medical Decision Making MDM Narrative: 52-year-old female will rule out UTI verses renal colic. Labs, CT, pain medication IV fluids. Review of all investigations and my interpretation is that there is a 3 mm stone at the left UPJ and the bilateral hydronephrosis appears to be consistent with imaging on 01/31/2022. There is no fever, chills, leukocytosis, PAULETTE and patient's pain is well controlled at present. On re-evaluation patient feels comfortable with being discharged and will be provided with a referral to follow-up with Dr. Bustillos 1st thing in the morning. Differential Diagnosis Differential Diagnoses: The differential diagnosis associated with the presentation includes Please see the discussion above Lab Data MDM Lab Attestation statement: I reviewed the patient's lab results. Please see the discussion above 12/01/22 01:24 12/01/22 01:24 Labs: Lab Results 12/01/22 12/01/22 12/01/22 Range/Units 01:18 01:24 01:24 WBC 7.2 (4.8-10.8) X10*3/uL RBC 4.53 (4.20-5.50) X10*6/uL Hgb 12.3 (12.0-16.0) g/dl Hct 38.2 (37.0-47.0) % MCV 84.3 (80.0-98.0) fL MCH 27.2 (27.0-33.0) pg MCHC 32.2 (31.0-35.0) g/dl RDW 13.4 (11.0-16.0) % Plt Count 312 (160-400) X10*3/uL MPV 8.6 L (9.4-12.3) fL Immature Gran % (Auto) 0.1 (0.0-0.4) % Neut % (Auto) 41.7 L (45-73) % Lymph % (Auto) 48.1 H (20-40) % [place] % (Auto) 7.8 (2-11) % Eos % (Auto) 1.9 (0-4) % Baso % (Auto) 0.4 (0-2) % Lymph # (Auto) 3.5 (1.2-4.9) X10*3/uL [place] # (Auto) 0.6 (0.1-1.2) X10*3/uL Eos # (Auto) 0.1 (0.0-0.4) X10*3/uL Baso # (Auto) 0.0 (0.0-0.2) X10*3/uL Abs Immat Gran (auto) 0.01 (0.00-0.03) X10*3/uL Absolute Neuts (auto) 3.0 (2.0-8.3) x10*3/uL Absolute Nucleated RBC 0.000 (0.0-0.012) X10*3/uL Nucleated RBC % (auto) 0.0 (0.0-0.2) /100WBC Sodium 141 (135-145) mmol/L Potassium 3.9 (3.3-5.1) mmol/L Chloride 107 (96-108) mmol/L Carbon Dioxide 24 (22-29) mmol/L Anion Gap 14 (12-20) BUN 13 (9-16) mg/dL Creatinine 0.80 (0.5-1.4) mg/dL Estim Creat Clear Calc 103.6 Estimated GFR > 60 Random Glucose 95 (60-115) mg/dL Calcium 9.7 (8.4-10.2) mg/dL Total Bilirubin 0.3 (0.0-1.0) mg/dL AST 17 (5-31) U/L ALT 19 (0-31) U/L Alkaline Phosphatase 97 (39-117) U/L Total Protein 7.2 (6.5-8.0) g/dL Albumin 4.2 (3.5-5.0) g/dL Lipase 21 (8-78) U/L Urine Color Yellow Urine Appearance Cloudy Urine pH 5.5 (5.0-9.0) Ur Specific [place] 1.025 (1.005-1.025) Urine Protein 100 (2+) H (Neg-Trace) mg/dL Urine Glucose (UA) Negative (Negative) mg/dL Urine Ketones Negative (Negative) mg/dL Urine Blood Large (3+) H (Negative) Urine Nitrite Negative (Negative) Ur Leukocyte Esterase Trace H (Negative) Urine RBC >20 H (0-2) /HPF Urine WBC 0-5 (0-5) /HPF Ur Squamous Epith Cells 0-2 (0-2) /HPF Urine Bacteria None Seen (None Seen) Hyaline Casts 0-2 (0-2) /LPF Radiology Impression Radiologist Impression: My interpretation is in agreement with radiology's impression of the imaging study. Discharge Plan Discharge Clinical Impression: Obstructed, uropathy Patient Disposition: Home, Self-Care Instructions: Renal Colic (ED) Additional Instructions: 1. Reanudar todos los medicamentos caseros seg?n lo prescrito. 2. Tylenol 1000 mg, por v?a oral, cada 6 horas seg?n sea necesario para controlar el dolor. No exceda los 4000 mg dentro de las 24 horas. 3. A continuaci?n se le proporcion? lupis remisi?n para Urolog?a. Llame a la oficina a primera hora de la ma?leroy y programe lupis sharan para lupis reevaluaci?n. Regrese a la sabina de emergencias si los s?ntomas empeoran. 1. Resume all home medications as prescribed. 2. Tylenol 1000 mg, orally, every 6 hours as needed for pain control. Do not exceed 4000 mg within 24 hours. 3. A referral for Urology has been provided to you below. Please call the office 1st thing in the morning and set up an appointment for re-evaluation. Return to the ER for worsening symptoms. Prescriptions: New tamsulosin [Flomax] 0.4 mg capsule 0.4 mg PO BEDTIME Qty: 4 0RF ketorolac 10 mg tablet 10 mg PO Q6H PRN (Reason: pain) 5 Days Qty: 20 0RF Rx Instructions: Patient received Toradol in the emergency room. prednisone 20 mg tablet 20 mg PO DAILY Qty: 4 0RF No Action vemnlojtry-vhpovgtwjzmvg-kuwl [Fioricet] 50-300-40 mg capsule 1 cap PO Q6H PRN (Reason: headache) Qty: 20 0RF ondansetron HCl [Zofran] 4 mg tablet 4 mg PO Q6H cholecalciferol (vitamin D3) 25 mcg (1,000 unit) tablet 25 mcg PO QAM Advair HFA 230-21 mcg/actuation HFA aerosol inhaler 2 puff inhalation BID montelukast 10 mg tablet 10 mg PO QPM doxepin 10 mg capsule 10 mg PO BEDTIME cetirizine 10 mg tablet 10 mg PO DAILY cyclobenzaprine 10 mg tablet 10 mg PO TID PRN (Reason: muscle spasm) Qty: 90 1RF hyoscyamine sulfate 0.125 mg tablet 0.25 mg PO QID PRN (Reason: dyspepsia) tizanidine 2 mg capsule 2 mg PO TID PRN (Reason: Muscle Spasm) pantoprazole [Protonix] 40 mg tablet,delayed release (DR/EC) 40 mg PO BID Qty: 60 6RF Linzess 72 mcg capsule 72 mcg PO QAM Qty: 30 6RF dicyclomine 20 mg tablet 20 mg PO QID 30 Days Qty: 120 6RF peg 3350-electrolytes [Golytely] 236-22.74-6.74 -5.86 gram recon soln 240 ml PO Q10M 1 Days Qty: 4000 0RF Rx Instructions: until fecal effluent is clear; do not exceed a total volume of 2,000 mL vitamin B complex [B Complex-Vitamin B12] Tablet 1 tab PO DAILY Referrals: Mikala Borges MD [Primary Care Provider] - Kash Bustillos MD [Physician] - (3mm [facility]) Print Language: Korean
[2022-12-01] MEDS: 0.9 % Sodium Chloride 1,000 ML 999 ML IV (01:47)
[2022-12-01 01:50] LABS: Alanine Aminotransferase 19 U/L (0-31); Albumin Level 4.2 g/dL (3.5-5.0); Alkaline Phosphatase 97 U/L (39-117); Anion Gap 14 (12-20); Aspartate Amino Transferase 17 U/L (5-31); Bilirubin Total 0.3 mg/dL (0.0-1.0); Blood Urea Nitrogen 13 mg/dL (9-16); Calcium 9.7 mg/dL (8.4-10.2); Carbon Dioxide 24 mmol/L (22-29); Chloride 107 mmol/L (96-108); Creatinine Clr Calc Pharmacy 103.6; Estimated Glomerular Filt Rate > 60; Glucose Random 95 mg/dL (60-115); Lipase 21 U/L (8-78); Potassium 3.9 mmol/L (3.3-5.1); Sodium 141 mmol/L (135-145); Total Protein 7.2 g/dL (6.5-8.0)
[2022-12-01] MEDS: Tamsulosin HCL 0.4 MG CAPSULE PO (01:52)
[2022-12-01] MEDS: Ketorolac Tromethamine 30 MG/ML VIAL 15 MG IVPUSH (01:53)
[2022-12-01] MEDS: fentaNYL citrate/PF 100 MCG/2 ML VIAL 25 MCG IVPUSH (04:00)
[2022-12-01 04:01] VITALS: PULSE 71; RESP 16; TEMP 36.4; O2SAT 99
--- NOTE | 2022-12-01 04:08 | PC.NURSE ---
Pt resting on stretcher at this time, fentanyl administered per DEC, pt also placed on monitor
== END 2022-12-01 05:20 | disposition home or self-care (01) ==
PROVIDERS: Emergency Provider Student in an Organized Health Care Education/Training Program; PCP Family Medicine
DX: N13.9 Obstructive and reflux uropathy, unspecified (principal); R10.13 Epigastric pain; Z79.899 Other long term (current) drug therapy
CPT/HCPCS: 36415; 74176; 80053; 81001; 83690; 85025; 96361; 96374; 96375; 99284; J1885; J3010

== ENCOUNTER → 2022-12-12 11:44 | Outpatient (BNVA) | payer MEDICAID, SELFPAY | PROVIDERS: PCP Family Medicine; Visit Provider Nurse Practitioner Family | DX: R31.9 Hematuria, unspecified (principal); N20.1 Calculus of ureter | CPT/HCPCS: 99202 ==

== ENCOUNTER 2022-12-19 07:38 | Day surgery (SDC) | payer MEDICAID, SELFPAY ==
[2022-12-19] VITALS (13 sets, daily range): BP systolic 142–156; BP diastolic 80–96; PULSE 66–98; RESP 14–18; TEMP 36.1–36.7; O2SAT 92–100; BMI 38.2
--- NOTE | ~2022-12-19 | XR_ITS ---
EXAMINATION: XR ABDOMEN KUB CLINICAL INDICATION: Preop lithotripsy COMPARISON: 12/11/2012 TECHNIQUE: AP view of the abdomen. FINDINGS: No suspicious calcifications are seen overlying the expected position of either kidney or ureter. Normal bowel gas pattern. Gas and stool scattered throughout the colon. No acute osseous abnormality. XR/XR KUB IMPRESSION: No suspicious calcifications to suggest renal or ureteral calculi.
--- NOTE | ~2022-12-19 | FL_ITS ---
EXAMINATION: XR FLUOROSCOPY WITH IMAGES CLINICAL INFORMATION: Bilateral retrograde. Urinary tract calculi. COMPARISON: KUB 12/19/2022, CT abdomen and pelvis noncontrast 12/01/2022 TECHNIQUE: Fluoroscopy Supervised By: Dr. Wilson. Fluoroscopy Time: 48 seconds. Cumulative Dose: 22.82 mGy. Images: 6. FINDINGS: Contrast in both renal collecting systems show no hydronephrosis. No extravasation of contrast. Right ureteral stent is in position. FL/FL guidance in OR IMPRESSION: Fluoroscopy for urologic procedures.
--- NOTE | 2022-12-19 07:59 | PC.NURSE ---
PUT PATIENTS NAME BAND ON AND SENT TO XRAY FOR A KUB
[2022-12-19] MEDS: Lactated Ringers 1,000 ML 50 ML IVCONT (09:02)
--- NOTE | 2022-12-19 09:28 | HO.ANESPROP2 ---
HPI - Anesthesia Eval Consult details Narrative: 52 F for cystoscopy h/o seizures , last seizure few years ago , currently not on any medication for seizures PMFSH Active Problems Active Problems: All Active Problems (Updated 12/12/22 @ 12:27 by Jillian Chambers [facility]) Hematuria (Acute) Obstruction of left ureteropelvic junction (UPJ) due to stone (Acute) Osteoarthritis of right shoulder (Acute) Chronic idiopathic constipation (Acute) Nausea and vomiting (Acute) GERD (gastroesophageal reflux disease) (Acute) Upper abdominal pain (Acute) Well woman exam (Acute) Female pelvic pain (Acute) Kidney stones (Acute) Abdominal cramping (Acute) Tendinopathy of right rotator cuff (Acute) Low back pain (Acute) Sacroiliac joint pain (Acute) Lumbar radiculopathy, right (Acute) Lumbar facet arthropathy (Acute) Muscle spasm of back (Acute) Paresthesia of right leg (Acute) Family history of colon cancer in father (Acute) Past Medical History Medical History GERD (gastroesophageal reflux disease) Low back pain Migraines Osteoarthritis of right shoulder Renal calculi Functional capacity: independent ambulation Family History Family History Father History of colon cancer Mother History of diabetes mellitus Family history of problems with anesthesia: No Surgical History Surgical History History of appendectomy History of colonoscopy History of hernia repair History of hysterectomy History of surgery Hx of endoscopy History of Problems with Anesthesia: No Social History Social History Alcohol intake: current Alcohol intake frequency: holidays/special occasions only Patient Tobacco Use Status: Never used Tobacco Sexual orientation: Straight/Heterosexual Gender identity: Female Meds Allergies Allergy/AdvReac Type Severity Reaction Status Date / Time citalopram [From Celexa] AdvReac Mild ANXIETY Verified 12/12/22 12:09 divalproex sodium AdvReac Mild ANXIETY/JUM Verified 12/12/22 12:09 [From Depakote] PY olanzapine [From Zyprexa] AdvReac Mild ANXIETY Verified 12/12/22 12:09 paroxetine [From Paxil] AdvReac Mild ANXIETY Verified 12/12/22 12:09 Active Medications: Current Medications Lactated Ringer's (Lr) 1,000 mls @ 50 mls/hr IVCONT .Q20H ADAL Last Admin: 12/19/22 09:02 Dose: 50 mls/hr Home Medications Medication Instructions Recorded Confirmed Last Taken Type ondansetron HCl 4 mg tablet 4 mg PO Q6H 08/26/20 11/29/22 Unknown History (Zofran) cetirizine 10 mg tablet 10 mg PO DAILY 06/17/21 11/29/22 Unknown History cholecalciferol (vitamin D3) 25 25 mcg PO QAM 06/17/21 11/29/22 10/03/22 History mcg (1,000 unit) tablet doxepin 10 mg capsule 10 mg PO BEDTIME 06/17/21 11/29/22 Unknown History fluticasone propionate 230 2 puff inhalation BID 06/17/21 11/29/22 Unknown History mcg-salmeterol 21 mcg/actuation HFA inhaler (Advair HFA) montelukast 10 mg tablet 10 mg PO QPM 06/17/21 11/29/22 Unknown History hyoscyamine sulfate 0.125 mg tablet 0.25 mg PO QID PRN dyspepsia 08/15/22 11/29/22 Unknown History vitamin B complex (B 1 tab PO DAILY 11/29/22 11/29/22 Unknown History Complex-Vitamin B12 tablet) rimegepant 75 mg disintegrating 75 mg PO ONCE PRN 12/12/22 Unknown History tablet (Nurtec ODT) Exam Exam Date and Time: December 19, 2022927 Height,Weight and Vital Signs: Height 5 ft 6 in Weight 107.501 kg Last Vital Signs Temp 98.0 F 12/19/22 08:50 Pulse 82 12/19/22 08:50 Resp 16 12/19/22 08:50 BP 149/95 H 12/19/22 08:50 Pulse Ox 97 12/19/22 08:50 O2 Del Method 12/19/22 08:50 Airway Mallampati Class: III TM Dist: >3cm Neck ROM: Full Loose/Missing/Broken Teeth: Yes (Chipped upper teeth ) Heart: S1,S2 Lungs: distant breath sounds Assessment and Plan Assessment Anesthesia Assessment: Anesthesia Plan Discussed and Chart Reviewed Final Anesthetic Review Family History of Problems with Anesthesia: No History of Problems with Anesthesia: No NPO: Yes ASA Class: III Final Preanesthetic Review: Meds/Allgs Chart Reviewed, Consent Obtained/Reviewed and Anes Risks/Benef Reviewed Patient Risk: Intermediate Procedure Risk: Intermediate Anesthetic Plan Anesthetic Plan: GA Disposition: Standard PACU
--- NOTE | 2022-12-19 09:33 | MHC.SHP ---
Pre-Procedural Eval Section A Date of Service: 12/19/22 The patient is an INPATIENT: No The History & Physical has been completed within 30 days and I have reviewed it.: Yes Section B Chief Complaint: Calculus of kidney bilaterally Allergies: Allergies Allergy/AdvReac Type Severity Reaction Status Date / Time citalopram [From Celexa] AdvReac Mild ANXIETY Verified 12/12/22 12:09 divalproex sodium AdvReac Mild ANXIETY/JUM Verified 12/12/22 12:09 [From Depakote] PY olanzapine [From Zyprexa] AdvReac Mild ANXIETY Verified 12/12/22 12:09 paroxetine [From Paxil] AdvReac Mild ANXIETY Verified 12/12/22 12:09 Plan I have reviewed the history and physical and performed a pertinent physical examination on my patient. No changes have occurred unless specified. Pt with bilateral flank pain. CT imaging, bilateral hydro, right renal calculi, left UPJ stone. Plan for Cystoscopy, bilateral ureteroscopy, possible laser lithotripsy, possible bilateral ureteral stents. Risks discussed included but not limited to, possible need to repeat procedure if stone is not completely fragmented, Irritative voiding symptoms, bladder spasms, urgency, blood in urine. Time Spent With Patient Time: Total time managing care of this patient today ____ minutes.
--- NOTE | 2022-12-19 10:57 | P.OP_ITS ---
Operative Note Operative Note Date of Service: 12/19/22 Narrative: PreOperative Diagnosis:?? Right flank pain, right renal calculi, left UPJ stone, bilateral hydronephrosis Post Operative Diagnosis:?? ?Right flank pain, right renal calculi, left UPJ stone, bilateral hydronephrosis Procedure: - cystoscopy, bilateral retrograde, right ureteral stent placement 6 fr x 24 cm, findings right hydronephrosis, hydroureter, no ureteral stones identified Surgeon:?Dr Malissa Wilson Anesthesia:? General Indications for procedure: The patient is Italian-speaking, consent obtained with manager of disaster recovery. The patient has a history of nephrolithiasis. She was seen in the ED about a week ago with abdominal pain. CT imaging noted bilateral hydronephrosis, a 3 mm left UPJ stone and tiny right renal calculi up to 3 mm. The patient had persistent right flank pain pre-operatively. Procedure: After informed consent was verified the patient was brought to the operating placed on the OR table in supine position.? General Anesthesia was administered per protocol.? The patient was placed in lithotomy position, prepped and draped in the usual sterile fashion.? Safety pause time-out and side of surgery confirmed.? Antibiotics confirmed. A 22 Haitian cystoscope was inserted transurethrally, The bladder was v isualized.? Both ureteric orifices were in normal position. The? left ureteric orifice was cannulated? and a retrograde examination was performed, there was mild fullness at the left renal pelvis with narrowing at the left UPJ no hydroureter. The contrast drained and no filling defects noted and no evidence of obstruction identified. The right ureteral orifice was cannulated and retrograde exam was performed. There was right hydronephrosis and hydroureter noted there were no filling defects visualized. A hydrophilic guidewire was placed up to the level of the renal pelvis under fluoroscopy. After placement of the guidewire there was significant efflux of urine. A? 6 Haitian by 24 length stent was placed into the right ureter and renal pelvis under a combination of fluoroscopy and direct visualization. The bladder was emptied.? The rigid cystoscope was removed. ? The patient tolerated the procedure well and was brought to the recovery room in stable condition. Complications: None Drains: Ureteral stent as dictated above
[2022-12-19] MEDS: Acetaminophen 325 MG TABLET 650 MG PO (11:22)
[2022-12-19] MEDS: fentaNYL citrate/PF 100 MCG/2 ML VIAL 25 MCG IVPUSH ×2 (11:22→11:32)
[2022-12-19] MEDS: HYDROmorphone HCl 0.5 MG/0.5 ML SYRINGE 0.25 MG IVPUSH ×2 (11:42→11:47)
== END 2022-12-19 13:05 | disposition home or self-care (01) ==
PROVIDERS: PCP Family Medicine; Visit Provider Urology
PROC: (CPT 52332; principal; 2022-12-19 09:50)
DX: N13.2 Hydronephrosis with renal and ureteral calculous obstruction (principal); R31.9 Hematuria, unspecified; Z87.442 Personal history of urinary calculi; M54.50 Low back pain, unspecified; K21.9 Gastro-esophageal reflux disease without esophagitis; Z80.0 Family history of malignant neoplasm of digestive organs; Z88.8 Allergy status to other drugs, medicaments and biological substances
CPT/HCPCS: 52332; 52351; 74018; 87086; C1758; C1769; C2617; J0690; J1100; J1170; J2250; J2370; J2405; J3010; Q9967

== ENCOUNTER 2022-12-28 17:05 | Emergency (ER) | payer MEDICAID, SELFPAY ==
--- NOTE | ~2022-12-28 | US_ITS ---
EXAMINATION: US PELVIS LIMITED (BLADDER) CLINICAL INFORMATION: Status post cystoscopy. Hematuria.. COMPARISON: None TECHNIQUE: Real-time imaging of the bladder. FINDINGS: BLADDER: Well distended and normal. Right ureteral jet is seen. Left ureteral jet is not visualized. Prevoid bladder volume is 84.5 mL. Postvoid bladder not performed. There is internal ureteral stent visualized within the bladder as a round structure. Mild bladder wall thickening seen measuring 0.3 cm. US/US bladder IMPRESSION: The bladder is grossly unremarkable with right ureteral jet seen..
[2022-12-28 17:30] VITALS: BP 147/83; PULSE 99; RESP 20; TEMP 36.6; O2SAT 98; BMI 38.2
--- NOTE | 2022-12-28 17:33 | ED_ITS ---
HPI - Female Genitourinary General Chief complaint: Urogenital-Female Stated complaint: Post kidney surgery bleeding Time Seen by Provider: 12/28/22 23:01 Related Data Home Medications Medication Instructions Recorded Confirmed ondansetron HCl 4 mg tablet 4 mg PO Q6H 08/26/20 01/10/23 (Zofran) cetirizine 10 mg tablet 10 mg PO DAILY 06/17/21 01/10/23 cholecalciferol (vitamin D3) 25 25 mcg PO QAM 06/17/21 01/10/23 mcg (1,000 unit) tablet doxepin 10 mg capsule 10 mg PO BEDTIME 06/17/21 01/10/23 fluticasone propionate 230 2 puff inhalation BID 06/17/21 01/10/23 mcg-salmeterol 21 mcg/actuation HFA inhaler (Advair HFA) montelukast 10 mg tablet 10 mg PO QPM 06/17/21 01/10/23 hyoscyamine sulfate 0.125 mg tablet 0.25 mg PO QID PRN dyspepsia 08/15/22 01/10/23 vitamin B complex (B 1 tab PO DAILY 11/29/22 01/10/23 Complex-Vitamin B12 tablet) rimegepant 75 mg disintegrating 75 mg PO ONCE PRN 12/12/22 01/10/23 tablet (Nurtec ODT) Previous Rx's Medication Instructions Recorded cyclobenzaprine 10 mg tablet 10 mg PO TID PRN muscle spasm #90 05/24/22 tabs dicyclomine 20 mg tablet 20 mg PO QID 30 days #120 tabs 08/15/22 linaclotide 72 mcg capsule 72 mcg PO QAM #30 caps 08/15/22 (Linzess) pantoprazole 40 mg tablet,delayed 40 mg PO BID #60 tabs 08/15/22 release (Protonix) naproxen 375 mg tablet,delayed 375 mg PO BID PRN pain #40 tabs 12/19/22 release phenazopyridine 200 mg tablet 200 mg PO Q8H urinary burning #3 01/10/23 (Pyridium) tabs Allergies Allergy/AdvReac Type Severity Reaction Status Date / Time citalopram [From Celexa] AdvReac Mild ANXIETY Verified 01/10/23 14:30 divalproex sodium AdvReac Mild ANXIETY/JUM Verified 01/10/23 14:30 [From Depakote] PY olanzapine [From Zyprexa] AdvReac Mild ANXIETY Verified 01/10/23 14:30 paroxetine [From Paxil] AdvReac Mild ANXIETY Verified 01/10/23 14:30 [facility] Past Medical History Medical History GERD (gastroesophageal reflux disease) Low back pain Migraines Osteoarthritis of right shoulder Renal calculi Surgical History History of appendectomy History of colonoscopy History of hernia repair History of hysterectomy History of surgery Hx of endoscopy Family History Family History Father History of colon cancer Mother History of diabetes mellitus Social History Social History Alcohol intake: current Alcohol intake frequency: holidays/special occasions only Patient Tobacco Use Status: Never used Tobacco Sexual orientation: Straight/Heterosexual Gender identity: Female Physical Exam Vital Signs: Vital Signs: Last Vital Signs Temp 97.3 F 12/28/22 23:19 Pulse 79 12/28/22 23:19 Resp 18 12/28/22 23:19 BP 161/83 H 12/28/22 23:19 Pulse Ox 98 12/28/22 23:19 O2 Del Method 12/28/22 23:19 BMI result Body Mass Index 38.2 Course Course Course Narrative: 52-year-old primarily Nepali-speaking female presents for evaluation of blood in her urine. She reports that she had a cystoscopy December 19, 2021. She reports that she also feels like she is not completely emptying her bladder. He plan for labs and a urine as well as ultrasound of the bladder Medications Administered Discontinued Medications Generic Name Dose Route Start Last Admin Trade Name Freq PRN Reason Stop Dose Admin Sodium Chloride 1,000 mls @ 999 mls/hr 12/28/22 23:45 12/29/22 00:21 Ns IV 12/29/22 00:45 999 mls/hr .Q1H1M ADAL Administration Ceftriaxone Sodium 1 gm/ 50 mls @ 100 mls/hr 12/28/22 23:43 12/29/22 00:49 Sodium Chloride IV 12/29/22 00:12 Infused ONCE ONE Infusion Medical Decision Making Lab Data 12/28/22 17:51 12/28/22 17:51 Labs: Lab Results 12/28/22 12/28/22 12/28/22 Range/Units 17:51 17:51 17:51 WBC 4.7 L (4.8-10.8) X10*3/uL RBC 4.42 (4.20-5.50) X10*6/uL Hgb 12.3 (12.0-16.0) g/dl Hct 37.7 (37.0-47.0) % MCV 85.3 (80.0-98.0) fL MCH 27.8 (27.0-33.0) pg MCHC 32.6 (31.0-35.0) g/dl RDW 13.5 (11.0-16.0) % Plt Count 332 (160-400) X10*3/uL MPV 8.9 L (9.4-12.3) fL Immature Gran % (Auto) 0.9 H (0.0-0.4) % Neut % (Auto) 39.7 L (45-73) % Lymph % (Auto) 45.0 H (20-40) % [place] % (Auto) 11.8 H (2-11) % Eos % (Auto) 1.7 (0-4) % Baso % (Auto) 0.9 (0-2) % Lymph # (Auto) 2.1 (1.2-4.9) X10*3/uL [place] # (Auto) 0.6 (0.1-1.2) X10*3/uL Eos # (Auto) 0.1 (0.0-0.4) X10*3/uL Baso # (Auto) 0.0 (0.0-0.2) X10*3/uL Abs Immat Gran (auto) 0.04 H (0.00-0.03) X10*3/uL Absolute Neuts (auto) 1.9 L (2.0-8.3) x10*3/uL Absolute Nucleated RBC 0.000 (0.0-0.012) X10*3/uL Nucleated RBC % (auto) 0.0 (0.0-0.2) /100WBC PT 12.1 (10.0-13.1) SEC INR 1.1 (0.9-1.1) APTT 39.5 H (26.0-36.4) SEC Sodium 142 (135-145) mmol/L Potassium 4.0 (3.3-5.1) mmol/L Chloride 108 (96-108) mmol/L Carbon Dioxide 25 (22-29) mmol/L Anion Gap 13 (12-20) BUN 12 (9-16) mg/dL Creatinine 0.78 (0.5-1.4) mg/dL Estim Creat Clear Calc 107.0 Estimated GFR > 60 Random Glucose 92 (60-115) mg/dL Calcium 9.7 (8.4-10.2) mg/dL Urine Color Urine Appearance Urine pH (5.0-9.0) Ur Specific Russell (1.005-1.025) Urine Protein (Neg-Trace) mg/dL Urine Glucose (UA) (Negative) mg/dL Urine Ketones (Negative) mg/dL Urine Blood (Negative) Urine Nitrite (Negative) Ur Leukocyte Esterase (Negative) Urine RBC (0-2) /HPF Urine WBC (0-5) /HPF Ur Squamous Epith Cells (0-2) /HPF Urine Bacteria (None Seen) Hyaline Casts (0-2) /LPF 12/28/22 Range/Units 17:51 WBC (4.8-10.8) X10*3/uL RBC (4.20-5.50) X10*6/uL Hgb (12.0-16.0) g/dl Hct (37.0-47.0) % MCV (80.0-98.0) fL MCH (27.0-33.0) pg MCHC (31.0-35.0) g/dl RDW (11.0-16.0) % Plt Count (160-400) X10*3/uL MPV (9.4-12.3) fL Immature Gran % (Auto) (0.0-0.4) % Neut % (Auto) (45-73) % Lymph % (Auto) (20-40) % [place] % (Auto) (2-11) % Eos % (Auto) (0-4) % Baso % (Auto) (0-2) % Lymph # (Auto) (1.2-4.9) X10*3/uL [place] # (Auto) (0.1-1.2) X10*3/uL Eos # (Auto) (0.0-0.4) X10*3/uL Baso # (Auto) (0.0-0.2) X10*3/uL Abs Immat Gran (auto) (0.00-0.03) X10*3/uL Absolute Neuts (auto) (2.0-8.3) x10*3/uL Absolute Nucleated RBC (0.0-0.012) X10*3/uL Nucleated RBC % (auto) (0.0-0.2) /100WBC PT (10.0-13.1) SEC INR (0.9-1.1) APTT (26.0-36.4) SEC Sodium (135-145) mmol/L Potassium (3.3-5.1) mmol/L Chloride (96-108) mmol/L Carbon Dioxide (22-29) mmol/L Anion Gap (12-20) BUN (9-16) mg/dL Creatinine (0.5-1.4) mg/dL Estim Creat Clear Calc Estimated GFR Random Glucose (60-115) mg/dL Calcium (8.4-10.2) mg/dL Urine Color Red A Urine Appearance Turbid Urine pH 6.0 (5.0-9.0) Ur Specific Russell 1.020 (1.005-1.025) Urine Protein 100 (2+) H (Neg-Trace) mg/dL Urine Glucose (UA) Negative (Negative) mg/dL Urine Ketones Negative (Negative) mg/dL Urine Blood Moderate (2+) H (Negative) Urine Nitrite Positive H (Negative) Ur Leukocyte Esterase Moderate (2+) H (Negative) Urine RBC >20 H (0-2) /HPF Urine WBC 21-50 H (0-5) /HPF Ur Squamous Epith Cells 3-5 (0-2) /HPF Urine Bacteria Trace (None Seen) Hyaline Casts 0-2 (0-2) /LPF Discharge Plan Discharge Clinical Impression: Urinary tract infection Patient Disposition: Home, Self-Care Instructions: Urinary Tract Infection in Women (ED) Prescriptions: No Action naproxen 375 mg tablet,delayed release (DR/EC) 375 mg PO BID PRN (Reason: pain) Qty: 40 0RF ondansetron HCl [Zofran] 4 mg tablet 4 mg PO Q6H cholecalciferol (vitamin D3) 25 mcg (1,000 unit) tablet 25 mcg PO QAM Advair HFA 230-21 mcg/actuation HFA aerosol inhaler 2 puff inhalation BID montelukast 10 mg tablet 10 mg PO QPM doxepin 10 mg capsule 10 mg PO BEDTIME cetirizine 10 mg tablet 10 mg PO DAILY cyclobenzaprine 10 mg tablet 10 mg PO TID PRN (Reason: muscle spasm) Qty: 90 1RF hyoscyamine sulfate 0.125 mg tablet 0.25 mg PO QID PRN (Reason: dyspepsia) pantoprazole [Protonix] 40 mg tablet,delayed release (DR/EC) 40 mg PO BID Qty: 60 6RF Linzess 72 mcg capsule 72 mcg PO QAM Qty: 30 6RF dicyclomine 20 mg tablet 20 mg PO QID 30 Days Qty: 120 6RF phenazopyridine [Pyridium] 200 mg tablet 200 mg PO Q8H Qty: 3 0RF Rx Instructions: Take with a meal as can cause nausea vitamin B complex [B Complex-Vitamin B12] Tablet 1 tab PO DAILY Nurtec ODT 75 mg tablet,disintegrating 75 mg PO ONCE PRN Referrals: Malissa Wilson MD [Physician] - 12/29/22 Interventions: ED Discharge Assessment Last Done: 12/29/22 02:04 Discharge Date/Time: 12/29/22 02:10
[2022-12-28 18:00] LABS: MANUAL DIFF FLAG NO
[2022-12-28 18:10] LABS: Appearance Urine Turbid; Color Urine Red; Glucose Urine UA Negative (Negative); INTERNATIONAL NORM RATIO 1.1 (0.9-1.1); Leukocyte Esterase Urine Moderate (2+) (Negative); Nitrite Urine Positive (Negative); Prothrombin Time 12.1 SEC (10.0-13.1); UMIC TRIGGER UACC YES; Urine Blood Moderate (2+) (Negative); Urine Ketones Negative (Negative); Urine Protein 100 (2+) mg/dL (Neg-Trace)
[2022-12-28 18:12] LABS: Bacteria Urine Trace (None Seen); Hyaline Casts Urine 0-2 /LPF (0-2); RBC Urine >20 /HPF (0-2); UACC Culture Trigger YES; WBC Urine 21-50 /HPF (0-5)
[2022-12-28 18:13] LABS: Partial Thromboplastin Time 39.5 SEC (26.0-36.4)
[2022-12-28 18:16] LABS: Anion Gap 13 (12-20); Blood Urea Nitrogen 12 mg/dL (9-16); Calcium 9.7 mg/dL (8.4-10.2); Carbon Dioxide 25 mmol/L (22-29); Chloride 108 mmol/L (96-108); Estimated Glomerular Filt Rate > 60; Glucose Random 92 mg/dL (60-115); Sodium 142 mmol/L (135-145)
[2022-12-28 18:45] LABS: Basophils Percent Auto 0.9 % (0-2); Eosinophils Absolute Auto 0.1 X10*3/uL (0.0-0.4); Eosinophils Percent Auto 1.7 % (0-4); Hematocrit 37.7 % (37.0-47.0); Hemoglobin 12.3 g/dl (12.0-16.0); Imm Gran Abs Auto 0.04 X10*3/uL (0.00-0.03); Imm Gran Pct Auto 0.9 % (0.0-0.4); Lymphocytes Absolute Auto 2.1 X10*3/uL (1.2-4.9); Mean Corpuscular HGB Conc 32.6 g/dl (31.0-35.0); Mean Corpuscular Hemoglobin 27.8 pg (27.0-33.0); Mean Corpuscular Volume 85.3 fL (80.0-98.0); Mean Platelet Volume 8.9 fL (9.4-12.3); Monocytes Absolute Auto 0.6 X10*3/uL (0.1-1.2); Monocytes Percent Auto 11.8 % (2-11); Neutrophils Absolute Auto 1.9 x10*3/uL (2.0-8.3); Neutrophils Percent Auto 39.7 % (45-73); Platelet Count 332 X10*3/uL (160-400); Red Blood Count 4.42 X10*6/uL (4.20-5.50); Red Cell Distribution Width 13.5 % (11.0-16.0); White Blood Count 4.7 X10*3/uL (4.8-10.8)
[2022-12-28 22:03] VITALS: BP 154/87; PULSE 86; RESP 18; TEMP 36.7; O2SAT 97
[2022-12-28 23:19] VITALS: BP 161/83; PULSE 79; RESP 18; TEMP 36.3; O2SAT 98
--- NOTE | 2022-12-28 23:37 | ED_ITS ---
HPI - Female Genitourinary General Chief complaint: Urogenital-Female Stated complaint: Post kidney surgery bleeding Time Seen by Provider: 12/28/22 23:01 History of Present Illness HPI Narrative: Patient is a 52-year-old female presents today with having lower abdominal pain cramping. Bloody urine. Patient had a history of ureteral stent placed on December 19. Place on the right side for kidney stone at the UPJ. Subsequently patient noted a proximally 3-4 days worth of bloody urine. Followed by 3-4 days of normal urine in the last 1-2 days patient noted the pain and the bloody urine again. Came to the ED for further evaluation. No fever no chills no diaphoresis Related Data Home Medications Medication Instructions Recorded Confirmed ondansetron HCl 4 mg tablet 4 mg PO Q6H 08/26/20 11/29/22 (Zofran) cetirizine 10 mg tablet 10 mg PO DAILY 06/17/21 11/29/22 cholecalciferol (vitamin D3) 25 25 mcg PO QAM 06/17/21 11/29/22 mcg (1,000 unit) tablet doxepin 10 mg capsule 10 mg PO BEDTIME 06/17/21 11/29/22 fluticasone propionate 230 2 puff inhalation BID 06/17/21 11/29/22 mcg-salmeterol 21 mcg/actuation HFA inhaler (Advair HFA) montelukast 10 mg tablet 10 mg PO QPM 06/17/21 11/29/22 hyoscyamine sulfate 0.125 mg tablet 0.25 mg PO QID PRN dyspepsia 08/15/22 11/29/22 vitamin B complex (B 1 tab PO DAILY 11/29/22 11/29/22 Complex-Vitamin B12 tablet) rimegepant 75 mg disintegrating 75 mg PO ONCE PRN 12/12/22 tablet (Nurtec ODT) Previous Rx's Medication Instructions Recorded cyclobenzaprine 10 mg tablet 10 mg PO TID PRN muscle spasm #90 05/24/22 tabs dicyclomine 20 mg tablet 20 mg PO QID 30 days #120 tabs 08/15/22 linaclotide 72 mcg capsule 72 mcg PO QAM #30 caps 08/15/22 (Linzess) pantoprazole 40 mg tablet,delayed 40 mg PO BID #60 tabs 08/15/22 release (Protonix) tamsulosin 0.4 mg capsule (Flomax) 0.4 mg PO BEDTIME 30 days #30 caps 12/12/22 hydromorphone 2 mg tablet 2 mg PO Q4-6H PRN pain #8 tabs 12/19/22 (Dilaudid) naproxen 375 mg tablet,delayed 375 mg PO BID PRN pain #40 tabs 12/19/22 release cefuroxime axetil 500 mg tablet 500 mg PO BID 7 days #14 tabs 12/28/22 Allergies Allergy/AdvReac Type Severity Reaction Status Date / Time citalopram [From Celexa] AdvReac Mild ANXIETY Verified 12/12/22 12:09 divalproex sodium AdvReac Mild ANXIETY/JUM Verified 12/12/22 12:09 [From Depakote] PY olanzapine [From Zyprexa] AdvReac Mild ANXIETY Verified 12/12/22 12:09 paroxetine [From Paxil] AdvReac Mild ANXIETY Verified 12/12/22 12:09 Review of Systems Review of Systems: No fever no chills. Positive abdominal pain Yes all other systems are reviewed and are negative PMFSH Past Medical History Attestation statement: The following information was validated with the patient. Medical History GERD (gastroesophageal reflux disease) Low back pain Migraines Osteoarthritis of right shoulder Renal calculi Surgical History History of appendectomy History of colonoscopy History of hernia repair History of hysterectomy History of surgery Hx of endoscopy Family History Family History Father History of colon cancer Mother History of diabetes mellitus Social History Social History Alcohol intake: current Alcohol intake frequency: holidays/special occasions only Patient Tobacco Use Status: Never used Tobacco Advance Directives: No Advance Directives Information Provided: Yes Sexual orientation: Straight/Heterosexual Gender identity: Female Physical Exam Vital Signs: Vital Signs: Last Vital Signs Temp 97.3 F 12/28/22 23:19 Pulse 79 12/28/22 23:19 Resp 18 12/28/22 23:19 BP 161/83 H 12/28/22 23:19 Pulse Ox 98 12/28/22 23:19 O2 Del Method 12/28/22 23:19 BMI result Body Mass Index 38.2 Appearance: Alert. Oriented X3. No acute distress. Eyes: Pupils equal, round and reactive to light. ENT: Pharynx normal. Neck: Normal inspection. Neck supple. No lymph nodes noted. No crepitus CVS: Normal heart rate and rhythm. Pulses normal. Normal S1 and S2 Respiratory: No respiratory distress. Breath sounds normal. No Wheezing. No rales Abdomen: Soft and nontender. No rigidity. No distention. good BS x4 Skin: Skin warm and dry. Normal skin color. Normal skin turgor. Extremities: No lower extremity edema. Neurovascular intact to all extremities. No Lacerations. No Rash Neuro: Oriented X 3. No motor deficit. No sensory deficit. Moving all extermities. No slurred speech Medical Decision Making Medical Decision Making [facility] Narrative: Patient's urine showed a evidence for infection it was grossly bloody. The finding was discussed with patient's urologist. Patient's creatinine is normal white count is normal. A bladder ultrasound was ordered by triage. It was grossly normal. Consider getting a CT scan. After discussion with neurologist felt at this time will hold back on the CT scan and give a dose of IV fluid and IV antibiotic. Have patient follow-up with Urology on an outpatient basis. Patient's old chart was reviewed. Patient's abdomen is soft nontender. Will relay the message in discharge patient home after IV fluid and antibiotic. In stable condition. Differential Diagnosis Differential Diagnoses: The differential diagnosis associated with the presentation includes Kidney stone, complication from procedure, urinary tract infection, Consult Healthcare Provider Management of the patient was discussed with: [employer] Urology Lab Data [facility] Lab Attestation statement: I reviewed the patient's lab results. 12/28/22 17:51 12/28/22 17:51 Labs: Lab Results 12/28/22 12/28/22 12/28/22 Range/Units 17:51 17:51 17:51 WBC 4.7 L (4.8-10.8) X10*3/uL RBC 4.42 (4.20-5.50) X10*6/uL Hgb 12.3 (12.0-16.0) g/dl Hct 37.7 (37.0-47.0) % MCV 85.3 (80.0-98.0) fL MCH 27.8 (27.0-33.0) pg MCHC 32.6 (31.0-35.0) g/dl RDW 13.5 (11.0-16.0) % Plt Count 332 (160-400) X10*3/uL MPV 8.9 L (9.4-12.3) fL Immature Gran % (Auto) 0.9 H (0.0-0.4) % Neut % (Auto) 39.7 L (45-73) % Lymph % (Auto) 45.0 H (20-40) % [place] % (Auto) 11.8 H (2-11) % Eos % (Auto) 1.7 (0-4) % Baso % (Auto) 0.9 (0-2) % Lymph # (Auto) 2.1 (1.2-4.9) X10*3/uL [place] # (Auto) 0.6 (0.1-1.2) X10*3/uL Eos # (Auto) 0.1 (0.0-0.4) X10*3/uL Baso # (Auto) 0.0 (0.0-0.2) X10*3/uL Abs Immat Gran (auto) 0.04 H (0.00-0.03) X10*3/uL Absolute Neuts (auto) 1.9 L (2.0-8.3) x10*3/uL Absolute Nucleated RBC 0.000 (0.0-0.012) X10*3/uL Nucleated RBC % (auto) 0.0 (0.0-0.2) /100WBC PT 12.1 (10.0-13.1) SEC INR 1.1 (0.9-1.1) APTT 39.5 H (26.0-36.4) SEC Sodium 142 (135-145) mmol/L Potassium 4.0 (3.3-5.1) mmol/L Chloride 108 (96-108) mmol/L Carbon Dioxide 25 (22-29) mmol/L Anion Gap 13 (12-20) BUN 12 (9-16) mg/dL Creatinine 0.78 (0.5-1.4) mg/dL Estim Creat Clear Calc 107.0 Estimated GFR > 60 Random Glucose 92 (60-115) mg/dL Calcium 9.7 (8.4-10.2) mg/dL Urine Color Urine Appearance Urine pH (5.0-9.0) Ur Specific Thompson (1.005-1.025) Urine Protein (Neg-Trace) mg/dL Urine Glucose (UA) (Negative) mg/dL Urine Ketones (Negative) mg/dL Urine Blood (Negative) Urine Nitrite (Negative) Ur Leukocyte Esterase (Negative) Urine RBC (0-2) /HPF Urine WBC (0-5) /HPF Ur Squamous Epith Cells (0-2) /HPF Urine Bacteria (None Seen) Hyaline Casts (0-2) /LPF 12/28/22 Range/Units 17:51 WBC (4.8-10.8) X10*3/uL RBC (4.20-5.50) X10*6/uL Hgb (12.0-16.0) g/dl Hct (37.0-47.0) % MCV (80.0-98.0) fL MCH (27.0-33.0) pg MCHC (31.0-35.0) g/dl RDW (11.0-16.0) % Plt Count (160-400) X10*3/uL MPV (9.4-12.3) fL Immature Gran % (Auto) (0.0-0.4) % Neut % (Auto) (45-73) % Lymph % (Auto) (20-40) % Good[place] % (Auto) (2-11) % Eos % (Auto) (0-4) % Baso % (Auto) (0-2) % Lymph # (Auto) (1.2-4.9) X10*3/uL [place] # (Auto) (0.1-1.2) X10*3/uL Eos # (Auto) (0.0-0.4) X10*3/uL Baso # (Auto) (0.0-0.2) X10*3/uL Abs Immat Gran (auto) (0.00-0.03) X10*3/uL Absolute Neuts (auto) (2.0-8.3) x10*3/uL Absolute Nucleated RBC (0.0-0.012) X10*3/uL Nucleated RBC % (auto) (0.0-0.2) /100WBC PT (10.0-13.1) SEC INR (0.9-1.1) APTT (26.0-36.4) SEC Sodium (135-145) mmol/L Potassium (3.3-5.1) mmol/L Chloride (96-108) mmol/L Carbon Dioxide (22-29) mmol/L Anion Gap (12-20) BUN (9-16) mg/dL Creatinine (0.5-1.4) mg/dL Estim Creat Clear Calc Estimated GFR Random Glucose (60-115) mg/dL Calcium (8.4-10.2) mg/dL Urine Color Red A Urine Appearance Turbid Urine pH 6.0 (5.0-9.0) Ur Specific Thompson 1.020 (1.005-1.025) Urine Protein 100 (2+) H (Neg-Trace) mg/dL Urine Glucose (UA) Negative (Negative) mg/dL Urine Ketones Negative (Negative) mg/dL Urine Blood Moderate (2+) H (Negative) Urine Nitrite Positive H (Negative) Ur Leukocyte Esterase Moderate (2+) H (Negative) Urine RBC >20 H (0-2) /HPF Urine WBC 21-50 H (0-5) /HPF Ur Squamous Epith Cells 3-5 (0-2) /HPF Urine Bacteria Trace (None Seen) Hyaline Casts 0-2 (0-2) /LPF Radiology Impression Discussion of test interpretation with radiology: I have reviewed the radiologist's reading. External Record Review External record reviewed: Inpatient record Discharge Plan Discharge Clinical Impression: Urinary tract infection Patient Disposition: Home, Self-Care Instructions: Urinary Tract Infection in Women (ED) Prescriptions: New cefuroxime axetil 500 mg tablet 500 mg PO BID 7 Days Qty: 14 0RF No Action hydromorphone [Dilaudid] 2 mg tablet 2 mg PO Q4-6H PRN (Reason: pain) Qty: 8 0RF Rx Instructions: Partial Fill upon patient request. naproxen 375 mg tablet,delayed release (DR/EC) 375 mg PO BID PRN (Reason: pain) Qty: 40 0RF ondansetron HCl [Zofran] 4 mg tablet 4 mg PO Q6H cholecalciferol (vitamin D3) 25 mcg (1,000 unit) tablet 25 mcg PO QAM Advair HFA 230-21 mcg/actuation HFA aerosol inhaler 2 puff inhalation BID montelukast 10 mg tablet 10 mg PO QPM doxepin 10 mg capsule 10 mg PO BEDTIME cetirizine 10 mg tablet 10 mg PO DAILY cyclobenzaprine 10 mg tablet 10 mg PO TID PRN (Reason: muscle spasm) Qty: 90 1RF hyoscyamine sulfate 0.125 mg tablet 0.25 mg PO QID PRN (Reason: dyspepsia) pantoprazole [Protonix] 40 mg tablet,delayed release (DR/EC) 40 mg PO BID Qty: 60 6RF Linzess 72 mcg capsule 72 mcg PO QAM Qty: 30 6RF dicyclomine 20 mg tablet 20 mg PO QID 30 Days Qty: 120 6RF vitamin B complex [B Complex-Vitamin B12] Tablet 1 tab PO DAILY Nurtec ODT 75 mg tablet,disintegrating 75 mg PO ONCE PRN tamsulosin [Flomax] 0.4 mg capsule 0.4 mg PO BEDTIME 30 Days Qty: 30 0RF Referrals: Malissa Wilson MD [Physician] - 12/29/22
[2022-12-29] MEDS: cefTRIAXone sodium 1 GM in 0.9 % Sodium Chloride 50 ML IV (00:21)
[2022-12-29] MEDS: 0.9 % Sodium Chloride 1,000 ML 999 ML IV (00:21)
== END 2022-12-29 02:10 | disposition home or self-care (01) ==
PROVIDERS: Physician Assistant; Emergency Provider Emergency Medicine Emergency Medical Services; PCP Family Medicine
DX: N39.0 Urinary tract infection, site not specified (principal); R31.9 Hematuria, unspecified; Z79.899 Other long term (current) drug therapy
CPT/HCPCS: 36415; 76857; 80048; 81001; 85025; 85610; 85730; 87040; 87086; 96365; 99284; J0696

== ENCOUNTER → 2023-01-10 14:24 | Outpatient (BNVA) | payer MEDICAID, SELFPAY | PROVIDERS: PCP Family Medicine; Visit Provider Urology | DX: N20.0 Calculus of kidney (principal); N20.1 Calculus of ureter; N13.30 Unspecified hydronephrosis | CPT/HCPCS: 52310; 99212 ==

== ENCOUNTER 2023-03-22 12:43 | Outpatient (REF) | payer MEDICAID, SELFPAY ==
--- NOTE | ~2023-03-22 | US_ITS ---
EXAMINATION: US RETROPERITONEAL LIMITED (RENAL ONLY) CLINICAL INFORMATION: Calculus of kidney. COMPARISON: X-ray abdomen KUB 12/19/2022. CT abdomen and pelvis without contrast 12/01/2022. Ultrasound retroperitoneal limited (renal only) 06/21/2022 and 04/25/2021. X-ray abdomen KUB 08/16/2021. MRI abdomen with and without contrast 01/21/2013. TECHNIQUE: Real-time imaging of the kidneys. FINDINGS: RIGHT KIDNEY: 12.6 x 4.4 x 5.6 cm (SAG x AP x TRV). The kidney is normal in size, contour, and echogenicity. Renal cortical thickness is normal. No renal calculi or hydronephrosis. Previously seen calcifications on the prior CT scan are not identified on this exam. There is a 4 x 3 x 5 mm benign simple cyst present in the parapelvic region near the upper pole. This is benign and needs no additional imaging or follow-up. No solid renal masses. LEFT KIDNEY: 12.8 x 4.8 x 4.5 cm (SAG x AP x TRV). The kidney is normal in size, contour, and echogenicity. Renal cortical thickness is normal. Previously seen left-sided hydronephrosis on the recent CT scan has resolved presumably with interval passage of the previously seen 3 mm obstructing UPJ stone. In the lower pole on the left there is a linear echogenic focus present with twinkle artifact but no shadowing. No definite calculi or focal parenchymal lesions. No hydronephrosis. US/US renal BI IMPRESSION: 1. Resolved left-sided hydronephrosis . 2. Tiny echogenic focus lower pole left kidney without shadowing.
== END 2023-03-22 12:44 | disposition home or self-care (01) ==
LOC: HO.US 12:43
PROVIDERS: PCP Family Medicine; Visit Provider Urology
DX: N20.0 Calculus of kidney (principal); K59.04 Chronic idiopathic constipation; K21.9 Gastro-esophageal reflux disease without esophagitis; R11.2 Nausea with vomiting, unspecified; R10.10 Upper abdominal pain, unspecified
CPT/HCPCS: 76775; 99212

== ENCOUNTER → 2023-04-11 14:10 | Outpatient (BNVA) | payer MEDICAID, SELFPAY | PROVIDERS: PCP Family Medicine; Visit Provider Urology | DX: Z87.442 Personal history of urinary calculi (principal) | CPT/HCPCS: 99212 ==

== ENCOUNTER 2023-05-02 09:01 | Day surgery (SDC) | payer MEDICAID, SELFPAY ==
[2023-04-27 09:01] VITALS: BMI 38.7
--- NOTE | 2023-04-30 11:58 | HO.ANESPROP2 ---
Documented by User: Shauna Cruz NP 04/30/23 12:00 HPI - Anesthesia Eval Consult details Narrative: 52yo F for Colonoscopy s/p cysto,etc 11/2022 with GA-LMA 4 PMFSH Active Problems Active Problems: All Active Problems (Updated 01/10/23 @ 15:35 by Malissa Wilson MD) Chronic idiopathic constipation (Acute) Nausea and vomiting (Acute) GERD (gastroesophageal reflux disease) (Acute) Upper abdominal pain (Acute) Well woman exam (Acute) Female pelvic pain (Acute) Kidney stones (Acute) Abdominal cramping (Acute) Tendinopathy of right rotator cuff (Acute) Low back pain (Acute) Sacroiliac joint pain (Acute) Lumbar radiculopathy, right (Acute) Lumbar facet arthropathy (Acute) Muscle spasm of back (Acute) Paresthesia of right leg (Acute) Family history of colon cancer in father (Acute) Obstruction of left ureteropelvic junction (UPJ) due to stone (Acute) Hematuria (Acute) Left ureteral stone (Acute) Hydronephrosis (Acute) Osteoarthritis of right shoulder (Acute) Past Medical History Medical History GERD (gastroesophageal reflux disease) Low back pain Migraines Osteoarthritis of right shoulder Renal calculi Family History Family History Father History of colon cancer Mother History of diabetes mellitus Family history of problems with anesthesia: No Surgical History Surgical History (Updated 04/27/23 @ 08:58 by Jessica Diaz RN) History of appendectomy History of colonoscopy History of hernia repair History of hysterectomy History of surgery Hx of cystoscopy Hx of endoscopy History of Problems with Anesthesia: No Social History Social History Alcohol intake: current Alcohol intake frequency: holidays/special occasions only Patient Tobacco Use Status: Never used Tobacco Use of substances other than those prescribed or required for medical reasons: No Are you DNR?: No Advance Directives: No Advance Directives Information Provided: Yes Sexual orientation: Straight/Heterosexual Gender identity: Female Meds Allergies Allergy/AdvReac Type Severity Reaction Status Date / Time citalopram [From Celexa] AdvReac Mild ANXIETY Verified 04/11/23 14:52 divalproex sodium AdvReac Mild ANXIETY/JUM Verified 04/11/23 14:52 [From Depakote] PY olanzapine [From Zyprexa] AdvReac Mild ANXIETY Verified 04/11/23 14:52 paroxetine [From Paxil] AdvReac Mild ANXIETY Verified 04/11/23 14:52 Home Medications Medication Instructions Recorded Confirmed Last Taken Type ondansetron HCl 4 mg tablet 4 mg PO Q6H 08/26/20 04/27/23 Unknown History (Zofran) cetirizine 10 mg tablet 10 mg PO DAILY 06/17/21 04/27/23 Unknown History cholecalciferol (vitamin D3) 25 25 mcg PO QAM 06/17/21 04/27/23 10/03/22 History mcg (1,000 unit) tablet fluticasone propionate 230 2 puff inhalation BID 06/17/21 04/27/23 Unknown History mcg-salmeterol 21 mcg/actuation HFA inhaler (Advair HFA) montelukast 10 mg tablet 10 mg PO QPM 06/17/21 04/27/23 Unknown History hyoscyamine sulfate 0.125 mg tablet 0.25 mg PO QID PRN dyspepsia 08/15/22 04/27/23 Unknown History vitamin B complex (B 1 tab PO DAILY 11/29/22 04/27/23 Unknown History Complex-Vitamin B12 tablet) rimegepant 75 mg disintegrating 75 mg PO ONCE PRN Migraine Headache 12/12/22 04/27/23 Unknown History tablet (Nurtec ODT) Exam Exam Date and Time: April 30, 2023 1158 Height,Weight and Vital Signs: Height 5 ft 6 in Weight 108.862 kg Pertinent Lab Results Pertinent Lab Results: Laboratory Tests 12/28/22 12/28/22 17:51 17:51 WBC 4.7 L Hgb 12.3 Hct 37.7 Plt Count 332 Sodium 142 Potassium 4.0 Chloride 108 Carbon Dioxide 25 BUN 12 Creatinine 0.78 Assessment and Plan Assessment Anesthesia Assessment: Chart Reviewed Final Anesthetic Review Family History of Problems with Anesthesia: No History of Problems with Anesthesia: No Documented by User: Cruz Arvizu MD 05/02/23 10:05 [facility] Past Medical History Medical History GERD (gastroesophageal reflux disease) Low back pain Migraines Osteoarthritis of right shoulder Renal calculi Family History Family History Father History of colon cancer Mother History of diabetes mellitus Surgical History Surgical History (Updated 04/27/23 @ 08:58 by Jessica Diaz RN) History of appendectomy History of colonoscopy History of hernia repair History of hysterectomy History of surgery Hx of cystoscopy Hx of endoscopy Social History Social History Alcohol intake: current Alcohol intake frequency: holidays/special occasions only Patient Tobacco Use Status: Never used Tobacco Use of substances other than those prescribed or required for medical reasons: No Are you DNR?: No Advance Directives: No Advance Directives Information Provided: Yes Sexual orientation: Straight/Heterosexual Gender identity: Female Meds Allergies Allergy/AdvReac Type Severity Reaction Status Date / Time citalopram [From Celexa] AdvReac Mild ANXIETY Verified 04/11/23 14:52 divalproex sodium AdvReac Mild ANXIETY/JUM Verified 04/11/23 14:52 [From Depakote] PY olanzapine [From Zyprexa] AdvReac Mild ANXIETY Verified 04/11/23 14:52 paroxetine [From Paxil] AdvReac Mild ANXIETY Verified 04/11/23 14:52 Home Medications Medication Instructions Recorded Confirmed Last Taken Type ondansetron HCl 4 mg tablet 4 mg PO Q6H 08/26/20 04/27/23 Unknown History (Zofran) cetirizine 10 mg tablet 10 mg PO DAILY 06/17/21 04/27/23 Unknown History cholecalciferol (vitamin D3) 25 25 mcg PO QAM 06/17/21 04/27/23 10/03/22 History mcg (1,000 unit) tablet fluticasone propionate 230 2 puff inhalation BID 06/17/21 04/27/23 Unknown History mcg-salmeterol 21 mcg/actuation HFA inhaler (Advair HFA) montelukast 10 mg tablet 10 mg PO QPM 06/17/21 04/27/23 Unknown History hyoscyamine sulfate 0.125 mg tablet 0.25 mg PO QID PRN dyspepsia 08/15/22 04/27/23 Unknown History vitamin B complex (B 1 tab PO DAILY 11/29/22 04/27/23 Unknown History Complex-Vitamin B12 tablet) rimegepant 75 mg disintegrating 75 mg PO ONCE PRN Migraine Headache 12/12/22 04/27/23 Unknown History tablet (Nurtec ODT) Exam Airway Mallampati Class: II TM Dist: >3cm Neck ROM: Limited Heart: rrr Lungs: cta Assessment and Plan Assessment Anesthesia Assessment: Anesthesia Plan Discussed Final Anesthetic Review NPO: Yes ASA Class: III Final Preanesthetic Review: No Changes in Pt Med Stat, Meds/Allgs Chart Reviewed, Consent Obtained/Reviewed and Anes Risks/Benef Reviewed Patient Risk: Intermediate Procedure Risk: Low Anesthetic Plan Anesthetic Plan: MAC: and Agree w/ Assess. and Plan Disposition: Standard PACU
[2023-05-02 09:28] VITALS: BP 148/70; PULSE 70; RESP 16; TEMP 36.6; O2SAT 98
--- NOTE | 2023-05-02 09:41 | MHC.SHP ---
Pre-Procedural Eval Section A Date of Service: 05/02/23 Section B Chief Complaint: Chronic idiopathic constipation Details of Present Illness: abdominal pain Relevant Family History (Specify if Yes): No Relevant Social History: None Present Medications: see Short Stay Collaborative assessment Medical History: Significant History (GERD (gastroesophageal reflux disease) Low back pain Migraines Osteoarthritis of right shoulder Renal calculi) History of Previous Operations: Relevant previous surgery/procedure and date(s) (History of appendectomy History of colonoscopy History of hernia repair History of hysterectomy History of surgery Hx of cystoscopy Hx of endoscopy) Allergies: Allergies Allergy/AdvReac Type Severity Reaction Status Date / Time citalopram [From Celexa] AdvReac Mild ANXIETY Verified 04/11/23 14:52 divalproex sodium AdvReac Mild ANXIETY/JUM Verified 04/11/23 14:52 [From Depakote] PY olanzapine [From Zyprexa] AdvReac Mild ANXIETY Verified 04/11/23 14:52 paroxetine [From Paxil] AdvReac Mild ANXIETY Verified 04/11/23 14:52 Review of Systems Sugical H&P ROS: Negative: Constitution, Cardiovascular, Respiratory, Neurological, Psychiatric, Hem-Onc, Allergic/Immunologic, Gastrointestinal, Genitourinary, Musculoskeletal, Integumentary, Endocrine and Eyes/Ears/Nose/Throat Exam Surgical H&P Exam: Normal: HEENT, Normal: Heart, Normal: Lungs, Normal: Extremities, Normal: Abdomen, Normal: Skin and Normal: Neurological Plan Diagnosis/Plan: Unchanged I have reviewed the history and physical and performed a pertinent physical examination on my patient. No changes have occurred unless specified. Time Spent With Patient Time: Total time managing care of this patient today ____ minutes.
--- NOTE | 2023-05-02 10:47 | W.PM.OPN ---
Operative Note Operative Note Date of Service: 05/02/23 Narrative: Operative Information Procedure Description: Colonoscopy Indication: abdominal pain Anesthesia: MAC COLONOSCOPY Instrument: Olympus variable stiffness pediatric scope 190L Colonoscopy Monitoring: Vital signs and clinical assessment, continuous EKG monitoring, Pulse oximetry, Carbon Dioxide monitoring and blood pressure monitoring were done throughout the procedure. Colon withdrawal time was 8 minutes. Procedure: The patient was placed in the left lateral decubitis position and pre-procedure medications were administered. After a digital rectal examination of the ano-rectum, the video colonoscope was inserted into the rectum and advanced through the colon to the cecum/TI. The colonoscope was slowly withdrawn in a retrograde panoramic fashion and the colon mucosa was carefully examined including a retroflexed view of the rectum. Findings and interventions are described below. Procedure Difficulty: easy Findings: There was reduced colonic movement consistent with colonic inertia Terminal Ileum-normal, bx taken Random colon bx taken Cecum:normal Ascending Colon: normal Transverse Colon -normal Descending Colon:normal Sigmoid Colon: normal Rectum: Retroflexion with small internal hemorrhoids, grade I Anorectum - normal Colon preparation: [place] Bowel Preparation Scale Right colon; 3 Transverse colon: 3 Left colon; 3 (0 = Unprepared colon segment with mucosa not seen due to solid stool that cannot be cleared. 1 = Portion of mucosa of the colon segment seen, but other areas of the colon segment not well seen due to staining, residual stool and/or opaque liquid. 2 = Minor amount of residual staining, small fragments of stool and/or opaque liquid, but mucosa of colon segment seen well. 3 = Entire mucosa of colon segment seen well with no residual staining, small fragments of stool or opaque liquid) Impression and Post Procedure Diagnosis: colonic inertia internal hemorrhoids Plan: High fiber diet leaflet Avoid straining at stool, epsom salts and sitz bath, anusol supps or cream Repeat Colonoscopy in 10 years or earlier if clinically indicated await bx to r/o microscopic colitis, eosinophilic colitis or other infiltrative disorders Above findings were reviewed with the patient and relevant handouts were provided if indicated.
[2023-05-02 10:48] VITALS: BP 128/77; PULSE 80; RESP 16; TEMP 36.6; O2SAT 99
[2023-05-02 11:04] VITALS: BP 118/78; PULSE 71; RESP 16; TEMP 36.3; O2SAT 99
== END 2023-05-02 12:12 | disposition home or self-care (01) ==
PROVIDERS: PCP Family Medicine; Visit Provider Internal Medicine Gastroenterology
PROC: 0DJD8ZZ Inspection of Lower Intestinal Tract, Via Natural or Artificial Opening Endoscopic (ICD-10-PCS; CPT 45378; principal; 2023-05-02 10:40)
DX: R10.9 Unspecified abdominal pain (principal); K59.04 Chronic idiopathic constipation; K59.89 Other specified functional intestinal disorders; K64.0 First degree hemorrhoids; K21.9 Gastro-esophageal reflux disease without esophagitis; Z80.0 Family history of malignant neoplasm of digestive organs; Z79.899 Other long term (current) drug therapy
CPT/HCPCS: 45380; 88305

== ENCOUNTER 2023-05-09 12:36 | Outpatient (AMB) | payer MEDICAID, SELFPAY ==
--- NOTE | 2023-05-09 12:38 | A.OFFVIS_ITS ---
Intake Vital Signs 05/09/23 12:52 Height 5 ft 6 in Weight 233 lb BMI 37.6 BP 110/58 L Blood Pressure Location Lt brachial Position Sitting Pulse 87 Intake Visit Reasons: s/p colon- Sanchez Intake Note: Patient follow up for Colonoscopy results Patient cc: abdominalpain/bloating and acid reflex on ad off. Code Enforcement Inspector Required: Yes Code Enforcement Inspector Name: Merline [facility] interpeter Accompanied by: Self / Same As Patient Allergies citalopram [From Celexa] Adverse Reaction (Mild, Verified 05/09/23 12:50) ANXIETY divalproex sodium [From Depakote] Adverse Reaction (Mild, Verified 05/09/23 12:50) ANXIETY/JUMPY olanzapine [From Zyprexa] Adverse Reaction (Mild, Verified 05/09/23 12:50) ANXIETY paroxetine [From Paxil] Adverse Reaction (Mild, Verified 05/09/23 12:50) ANXIETY HPI s/p colon- Sanchez HPI Details Assessment & Plan (1) Chronic idiopathic constipation: ?Code(s): K59.04 - Chronic idiopathic constipation ?Plan: She continues to have upper abd bloating with eating. Since the GES is normal, I think she is having a small bowel delay as evidence by the severe CIC> I am going to start reglan 5mg qidachs. She is on LInzess 72mcg. She frequently has back pain as well, at times it is better with a BM - so it is difficult to. tell if the back or the colon is the true source. She only takes the Linzess prn and I advise her it would be better to take it every day or on a schedule. She has N/V when her upper abd pain is severe, which occurs intermittently with eating. ROV 4 weeks. (2) GERD (gastroesophageal reflux disease): ?Code(s): K21.9 - Gastro-esophageal reflux disease without esophagitis (3) Nausea and vomiting: ?Code(s): R11.2 - Nausea with vomiting, unspecified (4) Upper abdominal pain: ?Code(s): R10.10 - Upper abdominal pain, unspecified ? ? ? Medications: New metoclopramide HCl (Reglan) 5 mg? PO QIDACHS 1 20 tabs 3RF K59.04 - Chronic i diopathic constipa tion, R11.2 - Naus ea with vomiting, unspecified ? Refilled pantoprazole (Prot zee) 40 mg? PO BID 60 t abs 6RF ? ? linaclotide (Linze ss) 72 mcg? PO QAM 30 caps 6RF K59.04 - Chronic i diopathic constipa tion ? dicyclomine 20 mg? PO QID 30 d ays 120 tabs 6RF R10.9 - Unspecifie d abdominal pain ? COLONOSCOPY 05/02/23 Findings: There was reduced colonic movement consistent with colonic inertia Terminal Ileum-normal, bx taken Random colon bx taken Cecum:normal Ascending Colon: normal Transverse Colon -normal Descending Colon:normal Sigmoid Colon:? normal Rectum: Retroflexion with small internal hemorrhoids, grade I Anorectum - normal Impression and Post Procedure Diagnosis: colonic inertia internal hemorrhoids Plan: High fiber diet leaflet Avoid straining at stool, epsom salts and sitz bath, anusol supps or cream Repeat Colonoscopy in 10 years or earlier if clinically indicated await bx to r/o microscopic colitis, eosinophilic colitis or other infiltrative disorders BIOPSY Received: 05/02/23 Diagnosis A.? Terminal ileum, biopsy:? Ileal mucosa with no specific change. B:? Colon, random, biopsy:? Colonic mucosa with no specific change. TODAY'S VISIT [place] #Merline Quintana The procedure needs to be repeated in 5 years r/t the FHX of crc. The procedure was well tolerated. The results were explained and the patient is agreeable to the follow-up interval as stated. The bowel pattern has returned to normal. Education was provided to tell any 1st degree relatives about their findings to be sure that they are screened by age 45. Educated that they will be put on a recall list when it is time for their repeat scope but should they move out of state or away from the hospital they will need to remember along with their primary to repeat the procedure in a timely fashion to avoid any adverse complications. She is tolerating the 5mg reglan well, but this has not resolved the pain although it has decreased it. She has had no a/e so we will increase the dose. She is a bigger gal, so this may be weight/BMI appropriate. So far, this has not helped the bloating. It has helped the N/V. She continues to move her bowels well with the Linzess 72mcg, and she continues on her protonix bid and dicyclomine. ROV 4 weeks. [facility] Medical History (Updated 05/09/23 @ 14:15 by JAE Brown) GERD (gastroesophageal reflux disease) Low back pain Migraines Osteoarthritis of right shoulder Renal calculi Surgical History History of appendectomy History of colonoscopy History of hernia repair History of hysterectomy History of surgery Hx of cystoscopy Hx of endoscopy Family History Father History of colon cancer Mother History of diabetes mellitus Social History Alcohol intake: current Alcohol intake frequency: holidays/special occasions only Patient Tobacco Use Status: Never used Tobacco Sexual orientation: Straight/Heterosexual Gender identity: Female Female Reproductive History Menstrual Age of Menarche: 15 Review of Systems Const Denies fatigue, Denies fever(s), Denies night sweats, Reports poor appetite and Denies weight loss Eyes Details: glasses Reports requires corrective lenses ENT Reports Normal hearing present, Denies dental pain, Denies dysphagia, Denies hearing loss, Denies mouth pain, Denies odynophagia, Denies throat swelling, Denies tongue swelling and Reports other (Dentition adequate) Card Reports no additional complaints Resp Reports no additional complaints GI Reports abdominal pain, Denies melena, Denies bloating, Denies hematochezia, Reports constipation, Denies GI cramping, Denies dysphagia, Denies excessive flatus, Denies early satiety, Reports heartburn, Denies diarrhea, Reports nausea, Denies odynophagia, Reports vomiting and Denies hematemesis Skin/Breast Denies pruritus, Denies lesions, Denies rash and Denies jaundice Neuro Reports Normal hearing present and Denies Abnormal speech present Endo Denies fatigue Aller/Immun Denies throat swelling and Denies tongue swelling Physical Exam Vital Signs: Last Vital Signs Pulse 87 05/09/23 12:52 BP 110/58 L 05/09/23 12:52 BMI result Body Mass Index 37.6 Const General: cooperative, no acute distress, well developed and well groomed Nutritional Appearance: well nourished and obese Orientation/consciousness: oriented to person, oriented to place and oriented to time Limitations: language barrier HEENT Head: Yes normocephalic and Yes atraumatic Eyes General: appearance normal, both eyes and all related structures Pupils: Equal, round and reactive pupils present Neck Neck: Yes normal visual inspection and Yes no lymphadenopathy Thyroid: Thyroid normal Resp Effort & Inspection: normal respiratory effort and able to speak in complete sentences Auscultation: clear to auscultation bilaterally Cardio Rate: regular rate Rhythm: regular rhythm Heart sounds: Normal, physiologic split S2 sound present Peripheral pulses: radial pulses present and posterior tibial pulses present GI Inspection: No distended, Yes Abdominal panniculus present and Yes obesity Palpation (GI): Soft to palpation, nontender, no guarding, not rigid and No hepatosplenomegaly present Percussion: Yes normal to percussion Auscultation: normal bowel sounds Rectal Exam - Female: deferred Skin General skin exam: no rashes or lesions noted, turgor normal, skin not dry, no jaundice, No spider nevi and no striae Rashes: no rashes Nails: normal Neuro General: oriented to person, oriented to place and oriented to time Cranial nerves: Yes Equal, round and reactive pupils present and Yes Normal hearing present Speech: No Abnormal speech present Extrem General: Yes normal to inspection, No clubbing, No cyanosis and No edema Psych Appearance: grossly normal and well kempt Mental Status: mental status grossly normal Speech and movement: Normal speech and movement present Affect: normal affect Attitude: cooperative Thought process: Normal thought process present and not confabulating Thought content: Normal thought content present Insight: Limited insight present (Psych) Judgement: Limited judgement present (Psych) Assessment & Plan Assessment & Plan (1) Family history of colon cancer in father: Comment: in 70's, 2022 scope negative repeat in 5 years Code(s): Z80.0 - Family history of malignant neoplasm of digestive organs Plan: [place] #Merline LIve The procedure needs to be repeated in 5 years r/t the FHX of crc. The procedure was well tolerated. The results were explained and the patient is agreeable to the follow-up interval as stated. The bowel pattern has returned to normal. Education was provided to tell any 1st degree relatives about their findings to be sure that they are screened by age 45. Educated that they will be put on a recall list when it is time for their repeat scope but should they move out of state or away from the hospital they will need to remember along with their primary to repeat the procedure in a timely fashion to avoid any adverse complications. She is tolerating the 5mg reglan well, but this has not resolved the pain although it has decreased it. She has had no a/e so we will increase the dose. She is a bigger gal, so this may be weight/BMI appropriate. So far, this has not helped the bloating. It has helped the N/V. She continues to move her bowels well with the Linzess 72mcg, and she continues on her protonix bid and dicyclomine. ROV 4 weeks. (2) Chronic idiopathic constipation: Code(s): K59.04 - Chronic idiopathic constipation (3) Nausea and vomiting: Code(s): R11.2 - Nausea with vomiting, unspecified (4) GERD (gastroesophageal reflux disease): Code(s): K21.9 - Gastro-esophageal reflux disease without esophagitis Medications: New metoclopramide HCl (Reglan) 10 mg PO QIDACHS 120 tabs 6RF K59.04 - Chronic idiopathic constipation, R11.2 - Nausea with vomiting, unspecified Discontinued metoclopramide HCl (Reglan) Discontinued Reason: Doctor's Order 5 mg PO QIDACHS 120 tabs 3RF K59.04 - Chronic idiopathic constipation, R11.2 - Nausea with vomiting, unspecified Coding Level of Care Code Est Pt Level 4 (30633) Diagnoses Family history of colon cancer in father Z80.0 Chronic idiopathic constipation K59.04 Nausea and vomiting R11.2 GERD (gastroesophageal reflux disease) K21.9
[2023-05-09 12:52] VITALS: BP 110/58; PULSE 87; BMI 37.6
== END 2023-05-09 13:08 | disposition home or self-care (01) ==
PROVIDERS: PCP Family Medicine; Visit Provider Nurse Practitioner
DX: Z80.0 Family history of malignant neoplasm of digestive organs (principal); K59.04 Chronic idiopathic constipation; R11.2 Nausea with vomiting, unspecified; K21.9 Gastro-esophageal reflux disease without esophagitis
CPT/HCPCS: 99214

== ENCOUNTER → 2023-05-09 12:36 | Outpatient (BNVA) | payer MEDICAID, SELFPAY | PROVIDERS: PCP Family Medicine; Visit Provider Nurse Practitioner | DX: K59.04 Chronic idiopathic constipation (principal); K21.9 Gastro-esophageal reflux disease without esophagitis; R11.2 Nausea with vomiting, unspecified; Z80.0 Family history of malignant neoplasm of digestive organs | CPT/HCPCS: 99214 ==

== ENCOUNTER 2023-06-23 19:48 | Emergency (ER) | payer MEDICAID, SELFPAY ==
--- NOTE | ~2023-06-23 | CT_ITS ---
EXAMINATION: CT ABDOMEN AND PELVIS WITHOUT CONTRAST CLINICAL INFORMATION: Flank pain, hematuria COMPARISON: 12/01/2022 TECHNIQUE: Multidetector volumetric imaging was performed from the superior aspect of the liver through the pubic symphysis. Sagittal and coronal reformatted images were obtained on the technologist's workstation. This CT examination was performed using dose optimization techniques as appropriate, variously including the following: *Automated exposure control *Adjustment of mA and/or kV according to patient size (this includes techniques or standardized protocols for targeted exams where dose is matched to indication/reason for exam; i.e. extremities or head) *Use of iterative reconstruction technique DLP: 895 mGy-cm FINDINGS: LUNG BASES: The visualized lung bases are unremarkable. LIVER, GALLBLADDER, AND BILIARY TREE: The liver is normal in size, shape, and attenuation. No focal hepatic lesion or biliary ductal dilatation is present. The gallbladder is unremarkable with no evidence of radiopaque gallstones, gallbladder wall thickening, or obvious pericholecystic inflammatory changes. PANCREAS: Unremarkable. SPLEEN: Unremarkable. ADRENAL GLANDS: Unremarkable. KIDNEYS AND URETERS: No hydronephrosis on either side but there are tiny nonobstructing punctate calculi. On the right, pole calyx demonstrates 2 calculi largest measuring up to 3 mm on the left is a 3 mm lower pole calyceal stone. BLADDER: Unremarkable. GASTROINTESTINAL TRACT: The small and large bowel are unremarkable. The appendix is unremarkable. ABDOMINAL WALL: No significant hernia is appreciated. LYMPH NODES: Normal. VASCULAR: Unremarkable. PELVIC VISCERA: Surgically absent. OSSEOUS STRUCTURES: Unremarkable. CT/CT abdomen pelvis wo IV con IMPRESSION: Tiny nonobstructing renal calculi. No hydronephrosis. Fleischner guidelines were followed.
[2023-06-23 19:57] VITALS: BP 151/85; PULSE 80; RESP 18; TEMP 36.8; O2SAT 98; BMI 37.4
--- NOTE | 2023-06-23 20:04 | ED_ITS ---
HPI - Abdominal Pain General Chief Complaint: Abdominal Pain Stated Complaint: back/abd pain Time Seen by Provider: 06/23/23 21:54 Source: patient and staff anesthetist Mode of arrival: ambulatory Limitations: language barrier History of Present Illness HPI narrative: This is a 53-year-old female with history of chronic back pain currently taking tizanidine for pain at home her presents to the ER with complaints of right- sided back pain with radiation to both legs for the last few days with no known injury or trauma. Patient denies any urinary symptoms. Denies vomiting, diarrhea, constipation, fevers, chills. No bowel or bladder incontinence. No numbness in the groin. Related Data Home Medications Medication Instructions Recorded Confirmed ondansetron HCl 4 mg tablet 4 mg PO Q6H 08/26/20 04/27/23 (Zofran) cetirizine 10 mg tablet 10 mg PO DAILY 06/17/21 04/27/23 cholecalciferol (vitamin D3) 25 25 mcg PO QAM 06/17/21 04/27/23 mcg (1,000 unit) tablet fluticasone propionate 230 2 puff inhalation BID 06/17/21 04/27/23 mcg-salmeterol 21 mcg/actuation HFA inhaler (Advair HFA) montelukast 10 mg tablet 10 mg PO QPM 06/17/21 04/27/23 vitamin B complex (B 1 tab PO DAILY 11/29/22 04/27/23 Complex-Vitamin B12 tablet) rimegepant 75 mg disintegrating 75 mg PO ONCE PRN Migraine Headache 12/12/22 04/27/23 tablet (Nurtec ODT) Previous Rx's Medication Instructions Recorded cyclobenzaprine 10 mg tablet 10 mg PO TID PRN muscle spasm #90 05/24/22 tabs naproxen 375 mg tablet,delayed 375 mg PO BID PRN pain #40 tabs 12/19/22 release dicyclomine 20 mg tablet 20 mg PO QID 30 days #120 tabs 03/22/23 linaclotide 72 mcg capsule 72 mcg PO QAM #30 caps 03/22/23 (Linzess) pantoprazole 40 mg tablet,delayed 40 mg PO BID #60 tabs 03/22/23 release (Protonix) metoclopramide HCl 10 mg tablet 10 mg PO QIDACHS #120 tabs 05/09/23 (Reglan) lidocaine 5 % topical patch 1 patch topical DAILY #30 ea 06/23/23 (Lidoderm) naproxen 500 mg tablet 500 mg PO BID PRN pain #30 tabs 06/23/23 Allergies Allergy/AdvReac Type Severity Reaction Status Date / Time citalopram [From Celexa] AdvReac Mild ANXIETY Verified 05/09/23 12:50 divalproex sodium AdvReac Mild ANXIETY/JUM Verified 05/09/23 12:50 [From Depakote] PY olanzapine [From Zyprexa] AdvReac Mild ANXIETY Verified 05/09/23 12:50 paroxetine [From Paxil] AdvReac Mild ANXIETY Verified 05/09/23 12:50 Review of Systems Review of Systems Yes all other systems are reviewed and are negative Constitutional: Reports no additional constitutional complaints, Denies body ache(s), Denies chills, Denies fever(s), Denies headache(s) and Denies weakness Eyes: Reports no additional eye complaints and Denies change in vision Reports system reviewed and no additional complaints, except as documented, Denies dizziness, Denies headache(s), Denies nasal congestion, Denies nasal discharge and Denies neck pain Cardiovascular: Reports no additional cardiovascular complaints, Denies chest pain, Denies leg edema and Denies dyspnea Respiratory: Reports no additional respiratory complaints, Denies cough and Denies dyspnea Gastrointestinal: Reports no additional gastrointestinal complaints, Denies abd ominal pain, Denies diarrhea, Denies nausea and Denies vomiting Genitourinary: Reports no additional female genitourinary complaints and Denies urinary incontinence Musculoskeletal: Reports no additional musculoskeletal complaints, Reports back pain, Denies arthralgias, Denies joint swelling, Denies neck pain, Denies numbness, Reports radiating pain into limb and Denies tingling Skin/Breast: Reports system reviewed and no additional complaints, except as docu and Denies rash Reports system reviewed and no additional complaints, except as documented, Denies dizziness, Denies headache(s), Denies numbness, Denies tingling and Denies weakness PMFSH Past Medical History Attestation statement: The following information was validated with the patient. Source: old records reviewed and nursing notes reviewed Medical History GERD (gastroesophageal reflux disease) Low back pain Migraines Osteoarthritis of right shoulder Renal calculi Surgical History History of appendectomy History of colonoscopy History of hernia repair History of hysterectomy History of surgery Hx of cystoscopy Hx of endoscopy Family History Family History Father History of colon cancer Mother History of diabetes mellitus Social History Social History Alcohol intake: never Patient Tobacco Use Status: Never used Tobacco Smoked in Last 30 Days: No Use of substances other than those prescribed or required for medical reasons: No Advance Directives: No Advance Directives Information Provided: Yes Patient : No Sexual orientation: Straight/Heterosexual Gender identity: Female Physical Exam ED Vital Signs: Vital Signs - 24 hr 06/23/23 19:57 06/23/23 22:00 Temperature 98.2 F 98.4 F Pulse Rate 80 71 Respiratory Rate 18 16 Blood Pressure 151/85 H 133/70 Pulse Oximetry 98 99 Oxygen Delivery Method Room Air Room Air BMI result Body Mass Index 37.4 Const General: cooperative, healthy appearing, comfortable and no acute distress Orientation/consciousness: patient oriented x3 Limitations: no limitations HENMT Head: Yes normal to inspection Ears: hearing grossly normal bilaterally Eyes General: appearance normal, both eyes and all related structures Pupils: Equal, round and reactive pupils present Neck Neck: Yes normal visual inspection Chest Chest palpation & inspection: normal inspection of the chest Resp Effort & Inspection: normal respiratory effort Auscultation: clear to auscultation bilaterally Cardio Rate: regular rate Rhythm: regular rhythm Peripheral pulses: Peripheral pulses 2+ throughout GI Inspection: Yes normal to inspection and No distended Palpation (GI): Soft to palpation and nontender Auscultation: normal bowel sounds General: Yes no CVA tenderness Back/Spine/Pelvis Other: Tenderness the right lumbar soft tissue with no midline tenderness, step-offs deformities. Pain is worse on the right straight leg raise Back: no CVA tenderness Neuro General: patient oriented x3 and moves all extremities Cranial nerves: Yes CN's II-XII intact bilaterally, Yes Equal, round and reactive pupils present, Yes Bilaterally intact EOM present, Yes Nystagmus not present, Yes Normal facial strength present and Yes Midline tongue present Cognition (Neuro): normal cognition Gait exam (Neuro): Normal gait present Motor exam (neuro): 5/5 motor strength present throughout Sensory Exam: Normal double simultaneous stimulation for sensation Extrem General: Yes normal to inspection, Yes no pedal edema and Yes no calf tenderness Course Course Course Narrative: This is an RME: Additional HPI, ROS, PE not included below will be deferred to primary provider. Patient is a 53-year-old female presents emergency department for evaluation of lower back pain radiating into the abdomen with hematuria, chi lls x3 days. It feels consistent with her prior kidney stones. Denies fevers, nausea, vomiting, diarrhea, constipation. Plan: Labs, urinalysis, CT AP Reevaluation(s) Reevaluation #1: CT scan shows nonobstructing renal calculi. UA shows microscopic hematuria with no evidence of infection. Labs are unremarkable. Patient received Toradol with improvement of pain. She is up and ambulatory with a steady gait. Will discharge her home with naproxen, medicated patches. She can continue her home tizanidine. Reviewed worrisome signs and symptoms with her and when to return to the emergency room. Comfortable plan for discharge home. Medical Decision Making Medical Decision Making [facility] Narrative: 53-year-old female here with complaints of right lower back pain with radiation to both legs for the last 2 days with no known injury or trauma. Exam patient has tenderness the right lumbar soft tissue with no midline tende rness, step-offs, deformities. No CVA tenderness. Normal neuro exam with no focal deficit Will obtain labs, UA, CT will provide analgesia Differential Diagnosis Differential Diagnoses: The differential diagnosis associated with the prese ntation includes Renal colic, pyelonephritis, lumbar radiculopathy Low concern for epidural abscess,AAA, cord compression, cauda equina-no risk factors, normal neuro exam, gradual onset Admission/Observation Consideration of admission/observation: Escalation of care including admission/observation considered See discussion and course of care Lab Data [facility] Lab Attestation statement: I reviewed the patient's lab results. Unremarkable 06/23/23 20:12 06/23/23 20:12 Labs: Lab Results 06/23/23 06/23/23 06/23/23 Range/Units 20:12 20:12 20:14 WBC 7.4 (4.8-10.8) X10*3/uL RBC 4.49 (4.20-5.50) X10*6/uL Hgb 12.0 (12.0-16.0) g/dl Hct 37.9 (37.0-47.0) % MCV 84.4 (80.0-98.0) fL MCH 26.7 L (27.0-33.0) pg MCHC 31.7 (31.0-35.0) g/dl RDW 14.0 (11.0-16.0) % Plt Count 335 (160-400) X10*3/uL MPV 8.8 L (9.4-12.3) fL Immature Gran % (Auto) 0.1 (0.0-0.4) % Neut % (Auto) 46.4 (45-73) % Lymph % (Auto) 42.7 H (20-40) % [place] % (Auto) 7.7 (2-11) % Eos % (Auto) 2.6 (0-4) % Baso % (Auto) 0.5 (0-2) % Lymph # (Auto) 3.2 (1.2-4.9) X10*3/uL [place] # (Auto) 0.6 (0.1-1.2) X10*3/uL Eos # (Auto) 0.2 (0.0-0.4) X10*3/uL Baso # (Auto) 0.0 (0.0-0.2) X10*3/uL Abs Immat Gran (auto) 0.01 (0.00-0.03) X10*3/uL Absolute Neuts (auto) 3.4 (2.0-8.3) x10*3/uL Absolute Nucleated RBC 0.000 (0.0-0.012) X10*3/uL Nucleated RBC % (auto) 0.0 (0.0-0.2) /100WBC Sodium 141 (135-145) mmol/L Potassium 3.8 (3.3-5.1) mmol/L Chloride 109 H (96-108) mmol/L Carbon Dioxide 26 (22-29) mmol/L Anion Gap 10 L (12-20) BUN 11 (9-16) mg/dL Creatinine 0.84 (0.5-1.4) mg/dL Estim Creat Clear Calc 97.2 Estimated GFR > 60 Random Glucose 116 H (60-115) mg/dL Calcium 9.9 (8.4-10.2) mg/dL Total Bilirubin 0.2 (0.0-1.0) mg/dL AST 15 (5-31) U/L ALT 15 (0-31) U/L Alkaline Phosphatase 102 (39-117) U/L Total Protein 7.8 (6.5-8.0) g/dL Albumin 4.2 (3.5-5.0) g/dL Lipase 20 (8-78) U/L Urine Color Yellow Urine Appearance Clear Urine pH 6.0 (5.0-9.0) Ur Specific [place] 1.020 (1.005-1.025) Urine Protein Negative (Neg-Trace) mg/dL Urine Glucose (UA) Negative (Negative) mg/dL Urine Ketones Negative (Negative) mg/dL Urine Blood Small (1+) H (Negative) Urine Nitrite Negative (Negative) Ur Leukocyte Esterase Negative (Negative) Urine RBC 11-20 H (0-2) /HPF Urine WBC 0-5 (0-5) /HPF Ur Squamous Epith Cells 0-2 (0-2) /HPF Urine Bacteria None Seen (None Seen) Hyaline Casts 0-2 (0-2) /LPF Independent Interpretation I performed an independent interpretation of an: CT Scan Interpretation: I independently reviewed the CT scan of your with radiology report Radiology Impression Discussion of test interpretation with radiology: I have reviewed the radiologist's reading. Radiologist Impression: [place] [id number] CT Scan Report Signed Patient: Carmelina Etienne MR#: [id number] : 1970 Acct:[id number] Age/Sex: 53 / F ADM Date: 06/23/23 Loc: HO.ED Attending Dr: Ordering Physician: Colleen Parks CNP Date of Service: 06/23/23 Procedure(s): CT abdomen pelvis wo IV con Accession Number(s): [id number] cc: Colleen Parks CNP~ EXAMINATION: CT ABDOMEN AND PELVIS WITHOUT CONTRAST? CLINICAL INFORMATION: Flank pain, hematuria? COMPARISON: 12/01/2022 TECHNIQUE: Multidetector volumetric imaging was performed from the superior aspect of the liver through the pubic symphysis. Sagittal and coronal reformatted images were obtained on the technologist's workstation.? This CT examination was performed using dose optimization techniques as appropriate, variously including the following: *Automated exposure control *Adjustment of mA and/or kV according to patient size (this includes techniques or standardized protocols for targeted exams where dose is matched to indication/reason for exam; i.e. extremities or head) *Use of iterative reconstruction technique DLP: 895 mGy-cm FINDINGS: LUNG BASES: The visualized lung bases are unremarkable.? LIVER, GALLBLADDER, AND BILIARY TREE: The liver is normal in size, shape, and attenuation. No focal hepatic lesion or biliary ductal dilatation is present. The gallbladder is unremarkable with no evidence of radiopaque gallstones, gallbladder wall thickening, or obvious pericholecystic inflammatory changes.? PANCREAS: Unremarkable.? SPLEEN: Unremarkable.? ADRENAL GLANDS: Unremarkable.? KIDNEYS AND URETERS: No hydronephrosis on either side but there are tiny nonobstructing punctate calculi. On the right, pole calyx demonstrates 2 calculi largest measuring up to 3 mm on the left is a 3 mm lower pole calyceal stone.? BLADDER: Unremarkable.? GASTROINTESTINAL TRACT: The small and large bowel are unremarkable. The appendix is unremarkable.? ABDOMINAL WALL: No significant hernia is appreciated.? LYMPH NODES: Normal. VASCULAR: Unremarkable. PELVIC VISCERA: Surgically absent.? OSSEOUS STRUCTURES: Unremarkable.? CT/CT abdomen pelvis wo IV con IMPRESSION: Tiny nonobstructing renal calculi. No hydronephrosis. ? Fleischner guidelines were followed. Tests considered The following testing was considered but not selected: MRI lumbar spine-no neurological deficits or red flag symptoms suggest need for emergent MRI Medications Administered Discontinued Medications Generic Name Dose Route Start Last Admin Trade Name Freq PRN Reason Stop Dose Admin Ketorolac Tromethamine 60 mg 06/23/23 22:16 06/23/23 22:43 Ketorolac Tromethamine 60 Mg/2 Ml Vial IM 06/23/23 22:17 60 mg ONCE ONE Administration Discharge Plan Discharge Clinical Impression: Lumbar radiculopathy, right Patient Disposition: Home, Self-Care Instructions: Lumbar Radiculopathy (ED) Additional Instructions: Heat or ice Gentle stretching No heavy lifting or bending Continue your tizanidine Prescriptions: New naproxen 500 mg tablet 500 mg PO BID PRN (Reason: pain) Qty: 30 0RF lidocaine [Lidoderm] 5 % adhesive patch,medicated 1 patch topical DAILY Qty: 30 0RF Rx Instructions: leave on most painful area for up to 12 hrs No Action naproxen 375 mg tablet,delayed release (DR/EC) 375 mg PO BID PRN (Reason: pain) Qty: 40 0RF ondansetron HCl [Zofran] 4 mg tablet 4 mg PO Q6H cholecalciferol (vitamin D3) 25 mcg (1,000 unit) tablet 25 mcg PO QAM Advair HFA 230-21 mcg/actuation HFA aerosol inhaler 2 puff inhalation BID montelukast 10 mg tablet 10 mg PO QPM cetirizine 10 mg tablet 10 mg PO DAILY cyclobenzaprine 10 mg tablet 10 mg PO TID PRN (Reason: muscle spasm) Qty: 90 1RF vitamin B complex [B Complex-Vitamin B12] Tablet 1 tab PO DAILY Nurtec ODT 75 mg tablet,disintegrating 75 mg PO ONCE PRN (Reason: Migraine Headache) pantoprazole [Protonix] 40 mg tablet,delayed release (DR/EC) 40 mg PO BID Qty: 60 6RF Linzess 72 mcg capsule 72 mcg PO QAM Qty: 30 6RF dicyclomine 20 mg tablet 20 mg PO QID 30 Days Qty: 120 6RF metoclopramide HCl [Reglan] 10 mg tablet 10 mg PO QIDACHS Qty: 120 6RF Interventions: ED Discharge Assessment Last Done: 06/23/23 22:46
[2023-06-23 20:15] LABS: MANUAL DIFF FLAG NO
[2023-06-23 20:18] LABS: Basophils Percent Auto 0.5 % (0-2); Eosinophils Absolute Auto 0.2 X10*3/uL (0.0-0.4); Eosinophils Percent Auto 2.6 % (0-4); Hematocrit 37.9 % (37.0-47.0); Imm Gran Abs Auto 0.01 X10*3/uL (0.00-0.03); Imm Gran Pct Auto 0.1 % (0.0-0.4); Lymphocytes Absolute Auto 3.2 X10*3/uL (1.2-4.9); Lymphocytes Percent Auto 42.7 % (20-40); Mean Corpuscular HGB Conc 31.7 g/dl (31.0-35.0); Mean Corpuscular Hemoglobin 26.7 pg (27.0-33.0); Mean Corpuscular Volume 84.4 fL (80.0-98.0); Mean Platelet Volume 8.8 fL (9.4-12.3); Monocytes Absolute Auto 0.6 X10*3/uL (0.1-1.2); Monocytes Percent Auto 7.7 % (2-11); Neutrophils Absolute Auto 3.4 x10*3/uL (2.0-8.3); Neutrophils Percent Auto 46.4 % (45-73); Platelet Count 335 X10*3/uL (160-400); Red Blood Count 4.49 X10*6/uL (4.20-5.50); White Blood Count 7.4 X10*3/uL (4.8-10.8)
[2023-06-23 20:24] LABS: Appearance Urine Clear; Color Urine Yellow; Glucose Urine UA Negative (Negative); Leukocyte Esterase Urine Negative (Negative); Nitrite Urine Negative (Negative); UMIC TRIGGER UACC YES; Urine Blood Small (1+) (Negative); Urine Ketones Negative (Negative); Urine Protein Negative (Neg-Trace)
[2023-06-23 20:32] LABS: Alanine Aminotransferase 15 U/L (0-31); Albumin Level 4.2 g/dL (3.5-5.0); Alkaline Phosphatase 102 U/L (39-117); Anion Gap 10 (12-20); Aspartate Amino Transferase 15 U/L (5-31); Bilirubin Total 0.2 mg/dL (0.0-1.0); Blood Urea Nitrogen 11 mg/dL (9-16); Calcium 9.9 mg/dL (8.4-10.2); Carbon Dioxide 26 mmol/L (22-29); Chloride 109 mmol/L (96-108); Creatinine Clr Calc Pharmacy 97.2; Estimated Glomerular Filt Rate > 60; Glucose Random 116 mg/dL (60-115); Lipase 20 U/L (8-78); Potassium 3.8 mmol/L (3.3-5.1); Sodium 141 mmol/L (135-145); Total Protein 7.8 g/dL (6.5-8.0)
[2023-06-23 21:15] LABS: Bacteria Urine None Seen (None Seen); Hyaline Casts Urine 0-2 /LPF (0-2); Squamous Epithelial Cell Urine 0-2 /HPF (0-2); WBC Urine 0-5 /HPF (0-5)
--- NOTE | 2023-06-23 21:31 | PC.NURSE ---
PT a&ox3, pt reporting 10/10 flank pain since yesterday that comes around front of the abdomen, pt states that pain radiates down leg when walking. Pt zhou N/V/D, Pt states she used ice on back with no improvement in pain. Pt is resting quietly.
[2023-06-23 22:00] VITALS: BP 133/70; PULSE 71; RESP 16; TEMP 36.9; O2SAT 99
[2023-06-23] MEDS: Ketorolac Tromethamine 60 MG/2 ML VIAL IM (22:43)
== END 2023-06-23 22:47 | disposition home or self-care (01) ==
PROVIDERS: Nurse Practitioner Family; Emergency Provider Emergency Medicine; PCP Family Medicine
DX: M54.16 Radiculopathy, lumbar region (principal); R31.9 Hematuria, unspecified; R68.83 Chills (without fever); Z79.899 Other long term (current) drug therapy
CPT/HCPCS: 36415; 74176; 80053; 81001; 83690; 85025; 96372; 99284; J1885

== ENCOUNTER 2023-09-25 08:55 | Outpatient (AMB) | payer MEDICAID, SELFPAY ==
--- NOTE | 2023-09-25 09:04 | A.OFFVIS_ITS ---
Intake Vital Signs 09/25/23 09:06 Height 5 ft 6 in Weight 232 lb BMI 37.4 Handedness Right Intake Visit Reasons: New Pt - right finger pain Intake Note: Carmelina is a 53 year old right hand dominant female who presents today as a new patients for a evaluation of her right ring finger pain. Patient reports she feels like there is a mass or a cyst in her finger which is causing her pain. Denies numbness and tingling. Allergies citalopram [From Celexa] Adverse Reaction (Mild, Verified 09/25/23 09:05) ANXIETY divalproex sodium [From Depakote] Adverse Reaction (Mild, Verified 09/25/23 09:05) ANXIETY/JUMPY olanzapine [From Zyprexa] Adverse Reaction (Mild, Verified 09/25/23 09:05) ANXIETY paroxetine [From Paxil] Adverse Reaction (Mild, Verified 09/25/23 09:05) ANXIETY HPI New Pt - right finger pain HPI Details 53-year-old right hand dominant female, who is [place] speaking, presents in the office today, as a new patient, for an evaluation of right ring finger pain. The patient reports feeling a mass or cyst on the right ring finger which is causing her pain. She denies numbness or tingling. The patient reports ongoing pain for the past month. She states she has increased pain with prolonged use. [facility] Medical History GERD (gastroesophageal reflux disease) Low back pain Migraines Osteoarthritis of right shoulder Renal calculi Surgical History History of appendectomy History of colonoscopy History of hernia repair History of hysterectomy History of surgery Hx of cystoscopy Hx of endoscopy Family History Father History of colon cancer Mother History of diabetes mellitus Alcohol intake: never Patient Tobacco Use Status: Never used Tobacco Sexual orientation: Straight/Heterosexual Gender identity: Female Female Reproductive History Menstrual Age of Menarche: 15 Review of Systems Const All systems reviewed & are unremarkable except as noted in HPI and below Physical Exam Vital Signs: BMI result Body Mass Index 37.4 Const General: cooperative and no acute distress Orientation/consciousness: patient oriented x3 Resp Effort & Inspection: normal respiratory effort and able to speak in complete sentences Cardio Peripheral pulses: Peripheral pulses 2+ throughout Skin General skin exam: no rashes or lesions noted Neuro General: patient oriented x3 Extrem Other: Right hand: Normal to inspection. No ecchymosis, erythema, or edema. Able to perform full finger flexion, extension, abduction, adduction, finger cross, okay sign, and thumbs up without deficit. Able to make a closed fist. Right ring finger palpable retinacular cyst volar sided just distal to the A1 armen associated with mild tenderness to palpation. Sensation intact. Capillary refill is brisk. Radial pulse intact. Assessment & Plan Assessment & Plan (1) Ganglion cyst of finger of right hand: Comment: Right ring finger Code(s): M67.441 - Ganglion, right hand Plan Ms. Etienne is a 53-year-old right hand dominant female, who is [place] speaking, presents in the office today, as a new patient, for an evaluation of right ring finger pain. The patient reports feeling a mass or cyst on the right ring finger which is causing her pain. She denies numbness or tingling. The patient reports ongoing pain for the past month. She states she has increased pain with prolonged use. I discussed the case with Dr. Simms and collaborative treatment plan was made. Options were discussed with the patient while in the office today, the first being to allow the cyst to remain with monitoring to see if it become more problematic. She is to contact the office should to have it aspirated with a needle. Needle aspiration was offered to the patient while in the office today but she would like to defer at this time. She will reach out to the office should her symptoms worsen or if she would like to proceed with aspiration of th e retinacular cyst on the volar aspect of the right ring finger. Follow up will be PRN, or sooner if needed. X-rays of the right hand which were obtained while in the office today and were reviewed by me, Batsheva Kathleen PA-C, revealed no acute fracture or dislocation. Orders: Orders XR hand RT min 3V Today M79.643 - Pain in unspecified hand Patient Instructions: Scribed for Batsheva Kathleen PA-C by Bonnie Rodeen, medical accounts receivable specialist, on 09/25/2023 at 9:05 am, EST. Coding Level of Care Code New Pt Level 4 (49637) Diagnoses Ganglion cyst of finger of right hand M67.441
[2023-09-25 09:06] VITALS: BMI 37.4
== END 2023-09-25 09:26 | disposition home or self-care (01) ==
PROVIDERS: PCP Family Medicine; Visit Provider Physician Assistant
DX: M67.441 Ganglion, right hand (principal)
CPT/HCPCS: 99204

== ENCOUNTER 2023-09-25 10:32 | Outpatient (REF) | payer MEDICAID, SELFPAY ==
--- NOTE | ~2023-09-25 | XR_ITS ---
EXAMINATION: XR HAND, RIGHT CLINICAL INFORMATION: Right hand pain. Pain distal tuft fourth digit. COMPARISON: None available. TECHNIQUE: Four views of the right hand. FINDINGS: Moderate degenerative changes in the first carpometacarpal joint with joint space narrowing and hypertrophic change. Bone mineralization is within normal limits. Punctate calcification in the soft tissues adjacent to the base of the thumb. No displaced fracture of the distal tuft of the fourth digit appreciated. XR/XR hand RT min 3V IMPRESSION: 1. Moderate degenerative changes in the first carpometacarpal joint. 2. Punctate calcification in the soft tissues adjacent to the base of the thumb. 3. No displaced fracture of the distal tuft of the fourth digit appreciated. Recommend followup imaging in 10-14 days if fracture is suspected.
== END 2023-09-25 10:33 | disposition home or self-care (01) ==
LOC: HO.HOSX 10:32
PROVIDERS: Visit Provider Physician Assistant
DX: M67.441 Ganglion, right hand (principal)
CPT/HCPCS: 73130; 99212

== ENCOUNTER 2023-10-18 08:45 | Outpatient (AMB) | payer MEDICAID, SELFPAY ==
--- NOTE | 2023-10-18 08:47 | A.OFFVIS_ITS ---
Intake Vital Signs 10/18/23 08:52 Height 5 ft 6 in Weight 224 lb 13.944 oz BMI 36.3 BP 128/72 Blood Pressure Location Rt brachial Position Sitting Pulse 68 Pulse Source Pulse Oximeter Temp 97 F Temp Source Skin Pulse Oximetry (%) 98 Oxygen Delivery Method Room Air Intake Visit Reasons: OA Intake Note: Patient last seen 11/29/22, presents today for follow up. c/o right knee pain radiating down leg x 2 mo Surface Boss Required: Yes Surface Boss Language: Farm Management Adviser Name: [id number] Information Interpreted: clinical only Accompanied by: Self / Same As Patient Allergies citalopram [From Celexa] Adverse Reaction (Mild, Verified 10/18/23 08:48) ANXIETY divalproex sodium [From Depakote] Adverse Reaction (Mild, Verified 10/18/23 08:48) ANXIETY/JUMPY olanzapine [From Zyprexa] Adverse Reaction (Mild, Verified 10/18/23 08:48) ANXIETY paroxetine [From Paxil] Adverse Reaction (Mild, Verified 10/18/23 08:48) ANXIETY HPI HPI Comments History of Present Illness Details Miss Cosme, 53yoF presents for follow-up of left knee pain. Last seen in November 2022. Patient describes that her knee has increased pain especially with weight-bearing activities. She feels like it is pulling in the back, she feels she cannot stand on it for any period of time. Prior Visit Patient reports chronic right shoulder pain for many years. She denies injury. She states her pain is worse at night when lying on the arm. She uses topical menthol cream and ice with some affect. She previously followed with ortho and received injections in the past with good effect. She had an MRI in February 2020 that showed mild to moderate tendinosis of the supraspinatus with mild peritendinitis, there were no discrete tears, and was mild acromioclavicular osteoarthritis. She reports numbness in bilateral arms at night. She states s he was diagnosed with carpal tunnel many years ago in had bilateral carpal tunnel release. She is currently following pain management for low back pain and had a sprint device, she states this was removed yesterday because it was not working. She plans to try sprint device again, she is waiting until she comes back from [place]. 52-year-old female with history of chron ic right shoulder pain. Previous right shoudler MRI 2019 showed tendinosis of the supraspinatus with mild peritendinitis and mild osteoarthritis of the acromioclavicular joint. Patient with continued pain which may be due to osteoarthritis or possible tendinitis. She previously responded well to injections. Recommend right shoulder x-ray for further evaluation. I will contact her with her x-ray results and she is interested in appointment for injection. Also with right knee pain on exam. She has pain with range of motion and significant crepitus. It is likely that osteoarthritis is contributing to her right knee pain. Recommend right knee x- ray for further evaluation. No synovitis on exam. I do not see any signs active inflammatory disease at this time. I will reach out with her x-ray results and determine follow-up at that time. Continue follow-up with pain management for chronic back pain. [facility] Medical History GERD (gastroesophageal reflux disease) Low back pain Migraines Osteoarthritis of right shoulder Renal calculi Surgical History Hx of cystoscopy History of surgery History of hernia repair History of hysterectomy History of appendectomy Hx of endoscopy History of colonoscopy Family History Father History of colon cancer Mother History of diabetes mellitus Social History Alcohol intake: never Patient Tobacco Use Status: Never used Tobacco Sexual orientation: Straight/Heterosexual Gender identity: Female Female Reproductive History Menstrual Age of Menarche: 15 Review of Systems Const All systems reviewed & are unremarkable except as noted in HPI and below Physical Exam Vital Signs: Last Vital Signs Temp 97 F 10/18/23 08:52 Pulse 68 10/18/23 08:52 BP 128/72 10/18/23 08:52 Pulse Ox 98 10/18/23 08:52 Oxygen Delivery Method Room Air 10/18/23 08:52 BMI result Body Mass Index 36.3 APPEARANCE: Patient in no acute distress HEART: Regular rhythm, S1-S2 heard, no murmurs, rubs or gallops. LUNG: Clear to auscultation, respiratory rate regular nonlabored. EXTREMITIES: No edema, no calf tenderness, normal peripheral pulses. NEURO: Oriented and alert x3. No focal weakness. Gait antalgic. SKIN: No inflammatory or neoplastic lesions. Normal color and turgor JOINT EXAM: Hands:? Normal pain-free range of motion without tenderness, swelling, increased warmth or erythema. Able to make a full fist and has a good hadoop administrator strength. Wrists:? Normal pain-free range of motion without tenderness, swelling, increased warmth or erythema. Elbows: Normal pain-free range of motion without tenderness, swelling, increased warmth or erythema. Shoulders: LEFT:?? Full range of motion without tenderness, swelling, increased warmth or erythema. RIGHT: Pain with flexion and abduction greater than 90 degrees. Tenderness to palpation over the anterior posterior aspect of the shoulder. Tenderness to palpation of the AC joint. No weakness, erythema, swelling or warmth noted. Hips:? Full range of motion without pain. Hip bursa:? No tenderness. Knees: LEFT:? Normal pain-free range of motion without swelling, increased warmth or erythema.? There is no effusion or crepitation. tenderness with palpation medial along the patella rim RIGHT: Pain with flexion extension. No tenderness to palpation of the joint lines. No swelling increased warmth or erythema. Crepitus noted. No effusion. Ankles:? Normal pain-free range of motion without tenderness, swelling, increased warmth or erythema. Feet:? LEFT: Normal pain-free range of motion without tenderness, swelling, increased warmth or erythema. RIGHT: Normal pain-free range of motion without tenderness, swelling, increased warmth or erythema. Cock-up deformity consistent with hammertoe 2nd toe. Results Reviewed Results Reviewed: MRI of pelvis 05/14/2018 - within normal limits imaging no sacroiliitis, no arthritis MRI lumbar spine 12/02/2001 - mild disc desiccation in the lumbar otherwise unremarkable MRI left shoulder without contrast 04/02/2020: [id number] focal tendinosis of the supraspinatus with mild peritendinitis MRI right shoulder 07/22/2003: Rotator cuff tendinosis no tear Ultrasound left knee 12/28/2016: No mass, no Shukla cyst Labs ordered by Dr. Renee 05/02/2018 Elevated C4 66 (57) Negative JOESPH, C3, SSA/SSB, anti Zavala/Zavala TUBING MACHINE TENDER, CCP, thyroid peroxidase, protein electrophoresis, cardiolipin, HLA-B27, RF EXAMINATION: RIGHT SHOULDER AND AND RIGHT KNEE CLINICAL INFORMATION: Pain in right shoulder COMPARISON: None TECHNIQUE: 3 views right knee and 4 views right shoulder. FINDINGS: Right shoulder: There is no visible acute fracture, dislocation or subluxation seen. The glenohumeral and AC joint space is maintained normal. The soft tissues are normal. Right knee: The tricompartment compartment joint space is maintained normal. No bony erosive changes. No loose body seen. The soft tissues are normal. XR/XR shoulder RT min 2V IMPRESSION: 1. Unremarkable right shoulder exam. 2. Unremarkable right knee exam. Assessment & Plan Assessment & Plan (1) Left knee pain: Code(s): M25.562 - Pain in left knee Qualifiers: Chronicity: chronic Qualified Code(s): M25.562 - Pain in left knee; G89.29 - Other chronic pain Plan #Left Knee Pain:Mrs. Cosme 52-year-old female with a history of knee pains. She has had these knee pains over the years - earliest imaging MRI 2016 without findings. There is no s/s of inflammation appreciated on PE and patient denies those episodes. She may benefit from cortisone injection. However, she has not had an evaluation of her knee by Ortho for possible soft tissue injury. Given that prior imaging of the left knee shows no OA, and patients denies known injury, I think it would be advisable that she gets Ortho evaluation before I administer a steroid injection. She recently saw ortho for a hand cyst. I have called Ortho and she is scheduled for Nov 09, 2023. Patient can continue with Tylenol and the Voltarean topical gels for the pain. After Ortho assessment, we will proceed according to their findings. If the knee is found not to have soft tissue damage, I think it is reasonable for her to get an injection. Patient will call the office to schedule an appointment if needed. Coding Level of Care Code Est Pt Level 3 (54542) Diagnoses Chronic pain of left knee M25.562; G89.29 Chronicity: chronic
[2023-10-18 08:52] VITALS: BP 128/72; PULSE 68; TEMP 36.1; O2SAT 98; BMI 36.3
== END 2023-10-18 09:18 | disposition home or self-care (01) ==
PROVIDERS: PCP Family Medicine; Visit Provider Nurse Practitioner Family
DX: M25.562 Pain in left knee (principal); G89.29 Other chronic pain
CPT/HCPCS: 99213

== ENCOUNTER → 2023-10-18 08:45 | Outpatient (BNVA) | payer MEDICAID, SELFPAY | PROVIDERS: PCP Family Medicine; Visit Provider Nurse Practitioner Family | DX: M25.562 Pain in left knee (principal); G89.29 Other chronic pain | CPT/HCPCS: 99212 ==

== ENCOUNTER 2023-10-26 12:54 | Outpatient (REF) | payer MEDICAID, SELFPAY | END 2023-10-26 12:55 | disposition home or self-care (01) | LOC: HO.XRAY 12:54 | PROVIDERS: PCP Family Medicine; Visit Provider Emergency Medicine | DX: R07.89 Other chest pain (principal) | CPT/HCPCS: 71046 ==

== ENCOUNTER 2023-11-09 10:35 | Outpatient (REF) | payer MEDICAID, SELFPAY | END 2023-11-09 10:36 | disposition home or self-care (01) | LOC: HO.HOSX 10:35 | PROVIDERS: Visit Provider Physician Assistant | DX: Z13.89 Encounter for screening for other disorder (principal) ==

== ENCOUNTER 2023-11-16 10:07 | Outpatient (REF) | payer MEDICAID, SELFPAY ==
--- NOTE | ~2023-11-16 | XR_ITS ---
EXAMINATION: XR AP STANDING VIEW OF BILATERAL KNEES XR LATERAL AND SUNRISE VIEWS OF THE LEFT KNEE CLINICAL INFORMATION: Pain in nonspecified knee. COMPARISON: None TECHNIQUE: AP standing view of bilateral knees. Lateral and sunrise views of the left knee. FINDINGS: Right knee: Single AP standing view of the right knee demonstrates mild lateral joint space narrowing with small lateral marginal osteophytes. Left knee: 3 views of the left knee demonstrate no significant joint effusion. Mild lateral joint space narrowing. Small lateral marginal and posterior patellar osteophytes. 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
--- NOTE | ~2023-11-16 | XR_ITS ---
EXAMINATION: XR AP STANDING VIEW OF BILATERAL KNEES XR LATERAL AND SUNRISE VIEWS OF THE LEFT KNEE CLINICAL INFORMATION: Pain in nonspecified knee. COMPARISON: None TECHNIQUE: AP standing view of bilateral knees. Lateral and sunrise views of the left knee. FINDINGS: Right knee: Single AP standing view of the right knee demonstrates mild lateral joint space narrowing with small lateral marginal osteophytes. Left knee: 3 views of the left knee demonstrate no significant joint effusion. Mild lateral joint space narrowing. Small lateral marginal and posterior patellar osteophytes. XR/XR knee standing BI IMPRESSION: Mild degenerative changes in the bilateral knees.
== END 2023-11-16 10:08 | disposition home or self-care (01) ==
LOC: HO.HOSX 10:07
PROVIDERS: PCP Family Medicine; Visit Provider Physician Assistant
DX: M54.16 Radiculopathy, lumbar region (principal); M25.561 Pain in right knee; M25.562 Pain in left knee
CPT/HCPCS: 73560; 73565; 99212

== ENCOUNTER 2023-11-16 10:07 | Outpatient (AMB) | payer MEDICAID, SELFPAY ==
[2023-11-16 10:23] VITALS: BMI 36.2
--- NOTE | 2023-11-16 10:23 | MHC.OFFVIS ---
Intake Vital Signs 11/16/23 10:23 Height 5 ft 6 in Weight 224 lb BMI 36.2 Intake Visit Reasons: Newprob-Left knee pain Intake Note: Carmelina is a 53 year old female who presents today for a evaluation of her left knee pain. Patient reports - . Hx of NSAIDs/Tylenol. Hx of knee braces. Hx of Home exercises. She states that her pain is worse when - . Allergies citalopram [From Celexa] Adverse Reaction (Mild, Verified 11/16/23 10:31) ANXIETY divalproex sodium [From Depakote] Adverse Reaction (Mild, Verified 11/16/23 10:31) ANXIETY/JUMPY olanzapine [From Zyprexa] Adverse Reaction (Mild, Verified 11/16/23 10:31) ANXIETY paroxetine [From Paxil] Adverse Reaction (Mild, Verified 11/16/23 10:31) ANXIETY PFSH Medical History GERD (gastroesophageal reflux disease) Low back pain Migraines Osteoarthritis of right shoulder Renal calculi Surgical History Hx of cystoscopy History of surgery History of hernia repair History of hysterectomy History of appendectomy Hx of endoscopy History of colonoscopy Family History Father History of colon cancer Mother History of diabetes mellitus Social History Alcohol intake: never Patient Tobacco Use Status: Never used Tobacco Sexual orientation: Straight/Heterosexual Gender identity: Female Female Reproductive History Menstrual Age of Menarche: 15 Physical Exam Vital Signs: BMI result Body Mass Index 36.2 Assessment & Plan Assessment & Plan Orders: Orders XR knee standing BI Today M25.569 - Pain in unspecified knee XR knee LT 2V Today M25.569 - Pain in unspecified knee Referrals Pain Management Referral M54.50 - Low back pain, unspecified Coding
--- NOTE | 2023-11-16 10:25 | A.OFFVIS_ITS ---
Intake Vital Signs 11/16/23 10:23 Height 5 ft 6 in Weight 224 lb BMI 36.2 Intake Visit Reasons: Newprob-Left knee pain Intake Note: Carmelina is a 53 year old female who presents today for a evaluation of her left knee pain. Patient reports she has had the pain for about 6 months . Hx of naprxen which helps a little . She states that her pain is worse when she goes up the stairs . Supervisor Special Education Name: [id number] Allergies citalopram [From Celexa] Adverse Reaction (Mild, Verified 11/16/23 10:31) ANXIETY divalproex sodium [From Depakote] Adverse Reaction (Mild, Verified 11/16/23 10:31) ANXIETY/JUMPY olanzapine [From Zyprexa] Adverse Reaction (Mild, Verified 11/16/23 10:31) ANXIETY paroxetine [From Paxil] Adverse Reaction (Mild, Verified 11/16/23 10:31) ANXIETY HPI Newprob-Left knee pain HPI Details 53-year-old female, who is [place]ian speak ing, presents in the office today for an evaluation of left knee pain. The patient reports she has had left knee pain for about 6 months. She claims her pain increases with the use of stairs and standing for long periods of time. Patient has a history of taking Naproxen with mild relief. She states she took 2 tablets and this was to much for her. She does not recall any injury to the knee. She claims the pain is located on the top of the knee cap and behind the left knee that radiates down the leg. She confirms numbness and tingling in the left foot toes. She confirms lower right sided back pain. She states the pain in her pain is so bad she can barely breath and can not sleep. She confirms was supposed to see Pain Management, but did not receive any calls. She confirms trying injections and the Sprint device but has had no relief with these. [facility] Medical History GERD (gastroesophageal reflux disease) Low back pain Migraines Osteoarthritis of right shoulder Renal calculi Surgical History Hx of cystoscopy History of surgery History of hernia repair History of hysterectomy History of appendectomy Hx of endoscopy History of colonoscopy Family History Father History of colon cancer Mother History of diabetes mellitus Social History Alcohol intake: never Patient Tobacco Use Status: Never used Tobacco Sexual orientation: Straight/Heterosexual Gender identity: Female Female Reproductive History Menstrual Age of Menarche: 15 Review of Systems Const All systems reviewed & are unremarkable except as noted in HPI and below Physical Exam Vital Signs: BMI result Body Mass Index 36.2 Const General: cooperative, healthy appearing and no acute distress Resp Effort & Inspection: normal respiratory effort and able to speak in complete sentences Cardio Rate: regular rate Peripheral pulses: Peripheral pulses 2+ throughout GI Palpation (GI): Soft to palpation Skin Lesions: no lesions Rashes: no rashes Extrem Other: Left knee: Normal to inspection. No ecchymosis, erythema, or joint effusion. No tenderness to palpation to the medial or lateral joint lines. Full knee extension and flexion. NVI. Assessment & Plan Assessment & Plan (1) Lumbar radiculopathy: Code(s): M54.16 - Radiculopathy, lumbar region Plan Ms. Etienne is a 53-year-old female, who is [place]serratian speaking, presents in the office today for an evaluation of left knee pain. The patient reports she has had left knee pain for about 6 months. She claims her pain increases with the use of stairs and standing for long periods of time. Patient has a history of taking Naproxen with mild relief. She states she took 2 tablets and this was to much for her. She does not recall any injury to the knee. She claims the pain is located on the top of the knee cap and behind the left knee that radiates down the leg. She confirms numbness and tingling in the left foot toes. She confirms lower right sided back pain. She states the pain in her pain is so bad she can barely breath and can not sleep. She confirms was supposed to see Pain M anagement, but did not receive any calls. She confirms trying injections and the Sprint device but has had no relief with these. I have sent a message to the Pain Management office to reach out to the patient to get her scheduled to be seen for further evaluation of her lower back pain. I have asked for the patient to reach out to our office if she does not hear from the Pain Management office in a week. If she has not then our office will reach out on her behalf again. At this time I feel the knee pain is connected to her lower back pain, therefore we will deferred further treatment from our office until she can be evaluated by Pain Management. Follow up will be PRN, or sooner if needed. X-rays of the left knee which were obtained while in the office today and were reviewed by me, Batsheva Kathleen PA-C, revealed no acute fracture or dislocation. Mild arthritis changes. Orders: Orders XR knee standing BI Today M25.569 - Pain in unspecified knee XR knee LT 2V Today M25.569 - Pain in unspecified knee Referrals Pain Management Referral M54.50 - Low back pain, unspecified Patient Instructions: Scribed for Batsheva Kathleen PA-C by Bonnie Monroy, medical technical writer, on 11/16/2023 at 10:14 am, EST. Coding Level of Care Code New Pt Level 3 (53607) Diagnoses Lumbar radiculopathy M54.16
== END 2023-11-16 11:30 | disposition home or self-care (01) ==
PROVIDERS: PCP Family Medicine; Visit Provider Physician Assistant
DX: M25.562 Pain in left knee (principal); M54.16 Radiculopathy, lumbar region
CPT/HCPCS: 99213

== ENCOUNTER 2023-11-19 10:52 | Outpatient (AMB) | payer MEDICAID, SELFPAY ==
--- NOTE | 2023-11-19 11:14 | A.OFFVIS_ITS ---
Intake Vital Signs 11/19/23 11:19 Height 5 ft 6 in Weight 238 lb 8 oz BMI 38.5 BP 150/80 H Blood Pressure Location Lt brachial Position Sitting Respiration 18 Pulse 79 Pulse Source Pulse Oximeter Pulse Oximetry (%) 99 Oxygen Delivery Method Room Air Intake Visit Reasons: F.U./Lower left extremity pain Intake Note: Patient comes in for follow up lower extremity left sided pain. Reports pain 10/10. Allergies citalopram [From Celexa] Adverse Reaction (Mild, Verified 11/19/23 11:20) ANXIETY divalproex sodium [From Depakote] Adverse Reaction (Mild, Verified 11/19/23 11:20) ANXIETY/JUMPY olanzapine [From Zyprexa] Adverse Reaction (Mild, Verified 11/19/23 11:20) ANXIETY paroxetine [From Paxil] Adverse Reaction (Mild, Verified 11/19/23 11:20) ANXIETY HPI HPI Comments History of Present Illness Details Carmelina is a a pleasant 53 years old female who is in my office requesting attention to her lower back pain again. In the past she received diagnostic medial branch block and after that she received sprint PNS. Unfortunately during the sprint PNS trial she had lost 1 of her electrodes. While she had the stimulation she experienced significant pain relief. She requests me to repeat the sprint PNS. She is telling me that in the beginning of January she will fly 4 months to [place]. She wants me to perform this procedure under sedation, however she wants it to be done before beginning of January or after the end of January. I will try to schedule it as soon as possible 2 weeks apart. However if her procedure can not be scheduled before December 22 we need to reschedule it in February. Prior: The pain is worse at night. She reports pain onset was gradual, constant and rates the pain a 9/10. She states the pain is interfering with sleep and her ability to function normally. The patient reports the pain in terms of tissue damage as stabbing, throbbing, burning, tingling as well as dull, tiring and fearful. The pain is exacerbated by prolonged sitting/standing as well as climbing upstairs. She has been taking meloxicam, naproxen, baclofen, celebrex with little to no effect on pain. She has also tried flexeril, topicals, heat/ice and tylenol with minimal effect. She has attempted physical therapy in the past with minimal alleviation in symptoms. She went for an evaluation for chiropractic manipulation, but was told she had a pinched nerve and needed an injection not manipulation. She had a lumbar spine MRI which she believes was performed at [facility] in 2018. She was also under the care of [facility] where she had procedures. In 2018 she had a L5-S1 KELECHI which alleviated her pain 100% for one year. She reportedly had that injection repeated in 2019 and had 6 months of relief. Then in September 2021, she had another injection, which only provided 2 weeks of relief. 2019 lesi L5-S1- worked x one year 100% relief second injection 2019 6 months. [facility] Medical History GERD (gastroesophageal reflux disease) Low back pain Migraines Osteoarthritis of right shoulder Renal calculi Surgical History Hx of cystoscopy History of surgery History of hernia repair History of hysterectomy History of appendectomy Hx of endoscopy History of colonoscopy Family History Father History of colon cancer Mother History of diabetes mellitus Social History Alcohol intake: never Patient Tobacco Use Status: Never used Tobacco Sexual orientation: Straight/Heterosexual Gender identity: Female Female Reproductive History Menstrual Age of Menarche: 15 Review of Systems Const All systems reviewed & are unremarkable except as noted in HPI and below ENT Reports Normal hearing present Neuro Reports Normal hearing present, Denies Abnormal speech present and Denies confusion Psych Denies confusion Physical Exam Vital Signs: Last Vital Signs Pulse 79 11/19/23 11:19 Resp 18 11/19/23 11:19 BP 150/80 H 11/19/23 11:19 Pulse Ox 99 11/19/23 11:19 Oxygen Delivery Method Room Air 11/19/23 11:19 BMI result Body Mass Index 38.5 Const Other: moderately uncomfortable General: No confusion Nutritional Appearance: obese Orientation/consciousness: No confusion Limitations: no limitations HEENT Head: Yes normal to inspection, Yes normocephalic and Yes atraumatic Ears: hearing grossly normal bilaterally Eyes General: appearance normal, both eyes and all related structures Neck Neck: Yes normal visual inspection, Yes supple and Yes no JVD Resp Effort & Inspection: normal respiratory effort, able to speak in complete sentences and no audible wheezes Back/Spine/Pelvis Other: Patient able to walk on heels and tip toes with no difficulties demonstrating good motor tone. Can flex forward to 50-60 degrees and extend to 10 degrees before experiencing lumbar pain. Reports more pain with lumbar extension. Demonstrates 5/5 strength of quadriceps bilaterally as well as flexion/dorsiflexion of bilateral feet against resistance. Straight leg rise with dorsiflexion + on the right. DTR diminished. Jordan test, Stinchfield test, Pelvic compression test and Aida's finger test + on the right. Facet loading test + bilaterally, R>L. Sensation diminished in the RLE in the distribution of the L5 nerve root. Thoracic/Lumbar Spine: thoracic and lumbar spine normal to inspection, No Thoracic/lumbar spine scar(s), pain with thoraco-lumbar ROM, paraspinal muscle tenderness, thoraco-lumbar ROM limited, No thoracic spinal tenderness and lumbar spinal tenderness Sacroiliac joints: on the right tender to palpation Neuro General: No confusion Cranial nerves: Yes Normal hearing present Speech: No Abnormal speech present Psych Appearance: grossly normal Mental Status: mental status grossly normal Speech and movement: Normal speech and movement present Affect: normal affect Attitude: cooperative Thought process: Normal thought process present Thought content: Normal thought content present Insight: Good insight present (Psych) Judgement: Good judgement present (Psych) Assessment & Plan Assessment & Plan (1) Sacroiliac joint pain: Code(s): M53.3 - Sacrococcygeal disorders, not elsewhere classified (2) Muscle spasm of back: Code(s): M62.830 - Muscle spasm of back (3) Lumbar facet arthropathy: Code(s): M47.816 - Spondylosis without myelopathy or radiculopathy, lumbar region (4) Paresthesia of right leg: Code(s): R20.2 - Paresthesia of skin Plan 3 year history of right sided low back pain which has been consistent with SIJ pathology, as well as all provocative SIJ testing was positive on the right and she was sent for a diagnostic SIJ innervation injection in hopes to schedule her for Stimwave but unfortunately, she reported no pain relief and exacerbation in symptoms for a few days following the procedure. Medial branch block L2-L3 L4 dorsal ramus L5 diagnostic with ropivacaine gave her 60 hours of pain relief. Sprint PNS resulted in good pain relief however the patient lost of 1 of the electrodes and trial was cut short. She requests me to perform the sprint PNS as we were doing it before. Now we need to perform it one-sided time 2 weeks apart. She is living for [place] in January and we need to do it before December 22 to accommodate for full-time of the trial. If we will not be able to schedule her before December 22 in the operating room with sedation we only will be able to do it in February. Coding Level of Care Code Est Pt Level 3 (76333) Diagnoses Sacroiliac joint pain M53.3 Muscle spasm of back M62.830 Lumbar facet arthropathy M47.816 Paresthesia of right leg R20.2
[2023-11-19 11:19] VITALS: BP 150/80; PULSE 79; RESP 18; O2SAT 99; BMI 38.5
== END 2023-11-19 11:37 | disposition home or self-care (01) ==
PROVIDERS: PCP Family Medicine; Referring Provider Family Medicine; Visit Provider Anesthesiology
DX: M53.3 Sacrococcygeal disorders, not elsewhere classified (principal); M62.830 Muscle spasm of back; M47.816 Spondylosis without myelopathy or radiculopathy, lumbar region; R20.2 Paresthesia of skin
CPT/HCPCS: 99213

== ENCOUNTER → 2023-11-19 10:52 | Outpatient (BNVA) | payer MEDICAID, SELFPAY | PROVIDERS: PCP Family Medicine; Visit Provider Anesthesiology | DX: M53.3 Sacrococcygeal disorders, not elsewhere classified (principal); M62.830 Muscle spasm of back; M47.816 Spondylosis without myelopathy or radiculopathy, lumbar region; R20.2 Paresthesia of skin | CPT/HCPCS: 99212 ==

== ENCOUNTER 2023-12-04 06:15 | Outpatient (REF) | payer MEDICAID, SELFPAY ==
--- NOTE | ~2023-12-04 | FL_ITS ---
EXAMINATION: XR FLUOROSCOPY WITH IMAGES CLINICAL INFORMATION: Spondylosis without myelopathy or radiculopathy COMPARISON: Fluoroscopic guidance 10/03/2022 TECHNIQUE: Fluoroscopy Supervised By: Dr. Arthur Juarez. Fluoroscopy Time: 0.1 minutes. Cumulative Dose: 3.021 mGy. DAP: 0.11253 Gycm2. Images: 1. FINDINGS: Fluoroscopy guidance in treatment room. Fluoroscopic spot image demonstrates fine wire overlying the left L4 and L5 lamina. FL/FL guidance in treatment room IMPRESSION: Imaging assistance provided during a fluoroscopic procedure.
== END 2023-12-04 06:16 | disposition home or self-care (01) ==
LOC: CF 06:15
PROVIDERS: Visit Provider Anesthesiology
DX: M47.816 Spondylosis without myelopathy or radiculopathy, lumbar region (principal)
CPT/HCPCS: 64555; C1778

== ENCOUNTER 2023-12-04 13:34 | Outpatient (AMB) | payer MEDICAID, SELFPAY ==
--- NOTE | 2023-12-04 14:09 | A.OFFVIS_ITS ---
Intake Vital Signs 12/04/23 14:45 12/04/23 14:46 Height 5 ft 6 in 5 ft 6 in Weight 238 lb 238 lb BMI 38.4 38.4 BP 152/80 H 140/82 H Blood Pressure Location Lt brachial Lt brachial Position Sitting Sitting Respiration 18 18 Pulse 74 74 Pulse Source Pulse Oximeter Pulse Oximeter Pulse Oximetry (%) 99 98 Oxygen Delivery Method Room Air Room Air Comment pre-op post-op Intake Visit Reasons: RIGHT L5 MB SPRINT PNS TRIAL Allergies citalopram [From Celexa] Adverse Reaction (Mild, Verified 12/04/23 14:46) ANXIETY divalproex sodium [From Depakote] Adverse Reaction (Mild, Verified 12/04/23 14:46) ANXIETY/JUMPY olanzapine [From Zyprexa] Adverse Reaction (Mild, Verified 12/04/23 14:46) ANXIETY paroxetine [From Paxil] Adverse Reaction (Mild, Verified 12/04/23 14:46) ANXIETY PFSH Medical History GERD (gastroesophageal reflux disease) Low back pain Migraines Osteoarthritis of right shoulder Renal calculi Surgical History Hx of cystoscopy History of surgery History of hernia repair History of hysterectomy History of appendectomy Hx of endoscopy History of colonoscopy Family History Father History of colon cancer Mother History of diabetes mellitus Social History Alcohol intake: never Patient Tobacco Use Status: Never used Tobacco Sexual orientation: Straight/Heterosexual Gender identity: Female Female Reproductive History Menstrual Age of Menarche: 15 Physical Exam Vital Signs: Last Vital Signs Pulse 74 12/04/23 14:46 Resp 18 12/04/23 14:46 BP 140/82 H 12/04/23 14:46 Pulse Ox 98 12/04/23 14:46 Oxygen Delivery Method Room Air 12/04/23 14:46 BMI result Body Mass Index 38.4 Office Procedures Sprint PNS Device: Sprint PNS Device [id number] Percutaneous Peripheral Neuroelectrode Procedure: 21950 - Percutaneous Peripheral Neuroelectrode Procedure code (CPT) selection complete Office Meds lidocaine (PF) 50 mg/5 mL (1 %) injection syringe Performing Provider: Kristy Mo APRN, XU [place]forming [place] [facility] Administered by: Arthur Juarez MD on 12/04/23 14:30 Dose Route Admin Location Dispensed Lot Number Expiration Date [employer] 5 mL subcut 5 mL Assessment & Plan Assessment & Plan (1) Spondylosis of lumbar region without myelopathy or radiculopathy: Code(s): M47.816 - Spondylosis without myelopathy or radiculopathy, lumbar region Plan Sprint PNS L5 right side After the risks, benefits and alternatives were discussed with the patient and informed consent was obtained, patient was placed in the prone position and padded to foster comfort. Time out was performed delineating correct site and side of the procedure , name and of the patient, patient participated in time out procedure. the lower back of the patient was prepped with ChloraPrep and draped with full body fenestrated drape. ?Sterily draped C-arm was brought over the operating field and clear picture of the lumbar spine was demonstrated on the screen. Right L5 lamina was chosen as the target of the tip of the needle position. Projection of the right L4 lamina was chosen as the start of the needle advancem ent. That point was chosen as the local anesthetic infiltration point. After identifying and marking the intended target, the skin around the planned entry point and the subcutaneous tissues were injected with local anesthetic forming skin wheal.. ?A percutaneous sleeve and stimulating probe lead introduction system were assembled, inserted and advanced through the skin wheal to the? point of i nterest under C-arm view in oblique vision fashion, the introducer needle was delivered to a location in proximity to the multifidus muscles at the right lamina of L5. Multiple stimulation parameters were used to deliver stimulation to the? nerve in concert with stimulating at multiple positions around the nerve. Nerve target acquisition was confirmed noting generation of? in the? corresponding to the nerve being stimulated. Various electrical parameter combinations were tested, and the lead location was adjusted? until the patient indicated? overlapping the distribution of the patient?s typical region of pain. The stimulating probe was removed from the introducer and a percutaneous lead was guided through the needle and delivered to a location in similar proximity to the nerve. Final location was verified with electrical stimulation. The introducer needle was removed, and the exposed end of the percutaneous lead was attached to an external stimulator unit. Various electrical parameter combinations were again tested until the patient indicated paresthesia or muscle tension overlapping the distribution of the patient?s typical region of pain. After confirming that lead impedance was in the normal range, the external unit was detached, the needle was removed, and the lead was anchored at the skin. The lead was threaded into the connector block and electrical continuity and desired patient response was confirmed. The connector block was attached to the external stimulator unit. The site was covered with a sterile occlusive dressing and an? image was taken to document final placement. ?Upon completion of the procedure the patient was taken outside the OR where he recovered uneventfully she went home without immediate complications Orders: Orders FL guidance in treatment room Today M47.816 - Spondylosis without myelopathy or radiculopathy, lumbar region AMB Sprint PNS Today M47.816 - Spondylosis without myelopathy or radiculopathy, lumbar region Coding Level of Care Code Procedure Only Diagnoses Spondylosis of lumbar region without myelopathy or radiculopathy M47.816 CPT Codes Sprint PNS - Sprint PNS Device: Sprint PNS Device ([id number]) Sprint PNS - SPRINT: 69268 - Percutaneous Peripheral Neuroelectrode ([id number])
[2023-12-04 14:45] VITALS: BP 152/80; PULSE 74; RESP 18; O2SAT 99; BMI 38.4
[2023-12-04 14:46] VITALS: BP 140/82; PULSE 74; RESP 18; O2SAT 98; BMI 38.4
== END 2023-12-04 14:39 | disposition home or self-care (01) ==
LOC: HO.PMCPRC 13:34
PROVIDERS: PCP Family Medicine; Visit Provider Anesthesiology
DX: M47.816 Spondylosis without myelopathy or radiculopathy, lumbar region (principal)
CPT/HCPCS: 64555

== ENCOUNTER 2023-12-07 12:58 | Outpatient (AMB) | payer MEDICAID, SELFPAY ==
--- NOTE | 2023-12-07 13:06 | MHC.OFFVIS ---
Intake Vital Signs 12/07/23 13:29 Height 5 ft 6 in Weight 238 lb BMI 38.4 BP 124/82 Blood Pressure Location Lt brachial Position Sitting Respiration 16 Pulse 78 Pulse Source Pulse Oximeter Pulse Oximetry (%) 98 Oxygen Delivery Method Room Air Intake Visit Reasons: Examine Dressing Area Allergies citalopram [From Celexa] Adverse Reaction (Mild, Verified 12/07/23 13:28) ANXIETY divalproex sodium [From Depakote] Adverse Reaction (Mild, Verified 12/07/23 13:28) ANXIETY/JUMPY olanzapine [From Zyprexa] Adverse Reaction (Mild, Verified 12/07/23 13:28) ANXIETY paroxetine [From Paxil] Adverse Reaction (Mild, Verified 12/07/23 13:28) ANXIETY HPI HPI Comments History of Present Illness Details Patient presents today 3 days s/p Right L5 Medial Branch Sprint PNS lead placement on 12/04/[address] Juarez. Patient presents today with concerns with itching and pricking sensation at her dressing site. Patient reports 80% pain relief on right lower back since procedure with improved daily functioning and sleep. Patient reports chronic right leg pain that radiates from her lower back in L4-L5 distribution. Reports intermittent numbness and tingling but denies weakness, foot drop, bladder or bowel dysfunction or saddle anesthesia. Pain for right leg is rated at 6-7/10. Patient denies any recent cough, cold, infection, fever, any significant changes in her medical history, medications or recent hospitalizations. The dressing was removed today. Lead insertion sites look clean, dry, intact, no redness, no swelling, no pathological discharge. It was noted that the exposed end of the percutaneous lead that was attached to an external stimulator unit was extending about 3 mm above external stimulator and in position slightly stabbing patient's skin. The extra lead was cut off and the area was cleansed with Chloraprep, applied Bacitracin and covered with Sprint Tegaderm film and gauze dressing. Patient reports positive parasthesia at right lower back at 50-52 stimulation. [place]EDURES[place] [facility] [place]: 12/04/23: Right L5 MB Sprint PNS trial-80% pain relief at 52 stimulation 10/03/22: Bilateral L5 MB Sprint PNS trial-moderate pain relief for right side, left lead pulled out 11/01/22 08/25/22-Right diagnostic L2-L3-L4 L5 MBB-100% pain relief for 2.5 days 04/14/22- Right diagnostic SIJ innervation-no relief. [facility]: 11/2020 L5-S1 KELECHI 70% relief of radicular symptoms on left x 7 months 01/2021 Right SIJ injection 75% relief x 1.5 months 04/2021 Right trochanteric bursa injection no relief 09/2021 L4-L5 KELECHI minimal relief x [address] Juarez 11/19/23: Carmelina is a a pleasant 53 years old female who is in my office requesting attention to her lower back pain again. In the past she received diagnostic medial branch block and after that she received sprint PNS. Unfortunately during the sprint PNS trial she had lost 1 of her electrodes. While she had the stimulation she experienced significant pain relief. She requests me to repeat the sprint PNS. She is telling me that in the beginning of January she will fly 4 months to [place]. She wants me to perform this procedure under sedation, however she wants it to be done before beginning of January or after the end of January. I will try to schedule it as soon as possible 2 weeks apart. However if her procedure can not be scheduled before December 22 we need to reschedule it in February. Prior: The pain is worse at night. She reports pain onset was gradual, constant and rates the pain a 9/10. She states the pain is interfering with sleep and her ability to function normally. The patient reports the pain in terms of tissue damage as stabbing, throbbing, burning, tingling as well as dull, tiring and fearful. The pain is exacerbated by prolonged sitting/standing as well as climbing upstairs. She has been taking meloxicam, naproxen, baclofen, celebrex with little to no effect on pain. She has also tried flexeril, topicals, heat/ice and tylenol with minimal effect. She has attempted physical therapy in the past with minimal alleviation in symptoms. She went for an evaluation for chiropractic manipulation, but was told she had a pinched nerve and needed an injection not manipulation. She had a lumbar spine MRI which she believes was performed at [facility] in 2019. She was also under the care of [facility] where she had procedures. In 2019 she had a L5-S1 KELECHI which alleviated her pain 100% for one year. She reportedly had that injection repeated in 2019 and had 6 months of relief. Then in September 2021, she had another injection, which only provided 2 weeks of relief. 2019 colleen L5-S1- worked x one year 100% relief second injection 2019 6 months. [facility] Medical History Osteoarthritis of right shoulder Migraines Low back pain Renal calculi GERD (gastroesophageal reflux disease) Surgical History Hx of cystoscopy History of surgery History of hernia repair History of hysterectomy History of appendectomy Hx of endoscopy History of colonoscopy Family History Father History of colon cancer Mother History of diabetes mellitus Social History Alcohol intake: never Patient Tobacco Use Status: Never used Tobacco Sexual orientation: Straight/Heterosexual Gender identity: Female Female Reproductive History Menstrual Age of Menarche: 15 Review of Systems Const All systems reviewed & are unremarkable except as noted in HPI and below Physical Exam General: Appears afebrile. Alert and oriented. Mood and affect appropriate. Follows and participates in conversation appropriately. Respiratory effort is unlabored. Able to transition from sit to stand unassisted. Ambulates with bilaterally normal heel strike and toe off. +SLR testing on the right, worsening with dorsiflexion. +mild TTP in right SIJ. +Jordan's test. Lead Insertion Site: Lead insertion sites look clean, dry, intact. No pathological discharge, no swelling and no erythema. Lead site dressing changed today in the clinic. Positive paresthesia at 52 right lower back. Results Reviewed Results Reviewed: EMG: Right tibial and peroneal motor studies were performed.? Right superficial peroneal and sural sensory studies were performed.? Tibial H-reflex was obtained, and the EMG study was performed. ? IMPRESSION:? 1. Right mid to lower lumbar radiculopathy. 2. 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 Assessment & Plan Assessment & Plan (1) Spondylosis of lumbar region without myelopathy or radiculopathy: Code(s): M47.816 - Spondylosis without myelopathy or radiculopathy, lumbar region (2) Low back pain: Code(s): M54.50 - Low back pain, unspecified (3) Sacroiliac joint pain: Code(s): M53.3 - Sacrococcygeal disorders, not elsewhere classified (4) Lumbar radiculopathy, right: Code(s): M54.16 - Radiculopathy, lumbar region Plan Patient is status post Right L5 Medial Branch Sprint PNS trial on 12/04/23 with ongoing 80% pain relief for axial right lower back pain. She reports improved daily activities, functioning and sleep. Dressing change done in clinic today as noted above. Patient prefers weekly Sprint dressing changes in the office. Patient will continue to adjust her stimulation setting as needed and monitor her pain level. Patient also reports chronic right sided radiculopathy and has received injections in the past with minimal and temporary relief. We will consider updating her lumbar spine MRI after Sprint trial is complete. All questions were answered and the patient agreed with the plan. Follow up for Sprint removal and sooner if needed. Coding Level of Care Code Est Pt Level 3 (91968) Diagnoses Spondylosis of lumbar region without myelopathy or radiculopathy M47.816 Low back pain M54.50 Sacroiliac joint pain M53.3 Lumbar radiculopathy, right M54.16
[2023-12-07 13:29] VITALS: BP 124/82; PULSE 78; RESP 16; O2SAT 98; BMI 38.4
== END 2023-12-07 13:38 | disposition home or self-care (01) ==
PROVIDERS: PCP Family Medicine; Visit Provider Nurse Practitioner Family
DX: M47.816 Spondylosis without myelopathy or radiculopathy, lumbar region (principal); M54.50 Low back pain, unspecified; M53.3 Sacrococcygeal disorders, not elsewhere classified; M54.16 Radiculopathy, lumbar region
CPT/HCPCS: 99024

== ENCOUNTER → 2023-12-07 12:58 | Outpatient (BNVA) | payer MEDICAID, SELFPAY | PROVIDERS: PCP Family Medicine; Visit Provider Nurse Practitioner Family | DX: M47.816 Spondylosis without myelopathy or radiculopathy, lumbar region (principal); M54.50 Low back pain, unspecified; M53.3 Sacrococcygeal disorders, not elsewhere classified; M54.16 Radiculopathy, lumbar region | CPT/HCPCS: 99212 ==

== ENCOUNTER 2023-12-10 14:13 | Outpatient (AMB) | payer MEDICAID, SELFPAY ==
--- NOTE | 2023-12-10 14:25 | MHC.OFFVIS ---
Intake Vital Signs 12/10/23 14:29 Height 5 ft 6 in Weight 238 lb BMI 38.4 BP 130/93 H Blood Pressure Location Lt brachial Position Sitting Respiration 17 Pulse 68 Pulse Source Pulse Oximeter Pulse Oximetry (%) 99 Oxygen Delivery Method Room Air Intake Visit Reasons: RIGHT L5 SPRINT PNS/12/04/23 Intake Note: Patient comes in for post-op appointment right L5 sprint PNS. Reports pain 3/10. Allergies citalopram [From Celexa] Adverse Reaction (Mild, Verified 12/10/23 14:29) ANXIETY divalproex sodium [From Depakote] Adverse Reaction (Mild, Verified 12/10/23 14:29) ANXIETY/JUMPY olanzapine [From Zyprexa] Adverse Reaction (Mild, Verified 12/10/23 14:29) ANXIETY paroxetine [From Paxil] Adverse Reaction (Mild, Verified 12/10/23 14:29) ANXIETY HPI HPI Comments History of Present Illness Details Carmelina is here today in the office for the follow-up. For dressing change was performed last Sunday12/07/2023. The condition of the insertion site is appropriate. She is scheduled for left-sided procedure in 1 week. She will be leaving the country in about 50 days and at that time we will remove the stimulator. She reports appropriate sensation from stimulation. She reports significant pain relief already. PREVIOUS PROCEDURES: [facility] [place]: 12/04/23: Right L5 MB Sprint PNS trial-80% pain relief at 52 stimulation 10/03/22: Bilateral L5 MB Sprint PNS trial-moderate pain relief for right side, left lead pulled out 11/01/22 08/25/22-Right diagnostic L2-L3-L4 DR L5 MBB-100% pain relief for 2.5 days 04/14/22- Right diagnostic SIJ innervation-no relief. [facility]: 11/2020 L5-S1 KELECHI 70% relief of radicular symptoms on left x 7 months 01/2021 Right SIJ injection 75% relief x 1.5 months 04/2021 Right trochanteric bursa injection no relief 09/2021 L4-L5 KELECHI minimal relief x [address] Juarez 11/19/23: Carmelina is a a pleasant 53 years old female who is in my office requesting attention to her lower back pain again. In the past she received diagnostic medial branch block and after that she received sprint PNS. Unfortunately during the sprint PNS trial she had lost 1 of her electrodes. While she had the stimulation she experienced significant pain relief. She requests me to repeat the sprint PNS. She is telling me that in the beginning of January she will fly 4 months to [place]. She wants me to perform this procedure under sedation, however she wants it to be done before beginning of January or after the end of January. I will try to schedule it as soon as possible 2 weeks apart. However if her procedure can not be scheduled before December 22 we need to reschedule it in February. Prior: The pain is worse at night. She reports pain onset was gradual, constant and rates the pain a 9/10. She states the pain is interfering with sleep and her ability to function normally. The patient reports the pain in terms of tissue damage as stabbing, throbbing, burning, tingling as well as dull, tiring and fearful. The pain is exacerbated by prolonged sitting/standing as well as climbing upstairs. She has been taking meloxicam, naproxen, baclofen, celebrex with little to no effect on pain. She has also tried flexeril, topicals, heat/ice and tylenol with minimal effect. She has attempted physical therapy in the past with minimal alleviation in symptoms. She went for an evaluation for chiropractic manipulation, but was told she had a pinched nerve and needed an injection not manipulation. She had a lumbar spine MRI which she believes was performed at [facility] in 2018. She was also under the care of [facility] where she had procedures. In 2018 she had a L5-S1 KELECHI which alleviated her pain 100% for one year. She reportedly had that injection repeated in 2019 and had 6 months of relief. Then in September 2021, she had another injection, which only provided 2 weeks of relief. 2019 lesi L5-S1- worked x one year 100% relief second injection 2019 6 months. [facility] Medical History Osteoarthritis of right shoulder Migraines Low back pain Renal calculi GERD (gastroesophageal reflux disease) Surgical History Hx of cystoscopy History of surgery History of hernia repair History of hysterectomy History of appendectomy Hx of endoscopy History of colonoscopy Family History Father History of colon cancer Mother History of diabetes mellitus Social History Alcohol intake: never Patient Tobacco Use Status: Never used Tobacco Sexual orientation: Straight/Heterosexual Gender identity: Female Female Reproductive History Menstrual Age of Menarche: 15 Review of Systems Const All systems reviewed & are unremarkable except as noted in HPI and below Physical Exam Vital Signs: Last Vital Signs Pulse 68 12/10/23 14:29 Resp 17 12/10/23 14:29 BP 130/93 H 12/10/23 14:29 Pulse Ox 99 12/10/23 14:29 Oxygen Delivery Method Room Air 12/10/23 14:29 BMI result Body Mass Index 38.4 General: Appears afebrile. Alert and oriented. Mood and affect appropriate. Follows and participates in conversation appropriately. Respiratory effort is unlabored. Able to transition from sit to stand unassisted. Ambulates with bilaterally normal heel strike and toe off. +SLR testing on the right, worsening with dorsiflexion. +mild TTP in right SIJ. +Jordan's test. Assessment & Plan Assessment & Plan (1) Spondylosis of lumbar region without myelopathy or radiculopathy: Code(s): M47.816 - Spondylosis without myelopathy or radiculopathy, lumbar region (2) Low back pain: Code(s): M54.50 - Low back pain, unspecified (3) Sacroiliac joint pain: Code(s): M53.3 - Sacrococcygeal disorders, not elsewhere classified (4) Lumbar radiculopathy, right: Code(s): M54.16 - Radiculopathy, lumbar region Plan Patient is status post Right L5 Medial Branch Sprint PNS trial on 12/04/23 with ongoing 80% pain relief for axial right lower back pain. She reports improved daily activities, functioning and sleep. Dressing change done i 3 days ago. Patient prefers weekly Sprint dressing changes in the office. Patient will continue to adjust her stimulation setting as needed and monitor her pain level. Patient also reports chronic right sided radiculopathy and has received injections in the past with minimal and temporary relief. We will consider updating her lumbar spine MRI after Sprint trial is complete. All questions were answered and the patient agreed with the plan. Follow up for Sprint removal and sooner if needed. Coding Level of Care Code Est Pt Level 3 (91485) Diagnoses Spondylosis of lumbar region without myelopathy or radiculopathy M47.816 Low back pain M54.50 Sacroiliac joint pain M53.3 Lumbar radiculopathy, right M54.16
[2023-12-10 14:29] VITALS: BP 130/93; PULSE 68; RESP 17; O2SAT 99; BMI 38.4
== END 2023-12-10 14:39 | disposition home or self-care (01) ==
PROVIDERS: PCP Family Medicine; Visit Provider Anesthesiology
DX: M47.816 Spondylosis without myelopathy or radiculopathy, lumbar region (principal); M54.50 Low back pain, unspecified; M53.3 Sacrococcygeal disorders, not elsewhere classified; M54.16 Radiculopathy, lumbar region
CPT/HCPCS: 99024

== ENCOUNTER → 2023-12-10 14:13 | Outpatient (BNVA) | payer MEDICAID, SELFPAY | PROVIDERS: PCP Family Medicine; Visit Provider Anesthesiology | DX: M47.816 Spondylosis without myelopathy or radiculopathy, lumbar region (principal); M54.50 Low back pain, unspecified; M53.3 Sacrococcygeal disorders, not elsewhere classified; M54.16 Radiculopathy, lumbar region | CPT/HCPCS: 99212 ==

== ENCOUNTER 2023-12-13 11:41 | Outpatient (AMB) | payer MEDICAID, SELFPAY ==
--- NOTE | 2023-12-13 11:42 | A.OFFVIS_ITS ---
Intake Vital Signs 3 12/13/23 11:49 Height 5 ft 6 in Weight 238 lb BMI 38.4 BP 140/90 H Blood Pressure Location Lt radial Position Sitting Respiration 16 Pulse 70 Pulse Source Pulse Oximeter Pulse Oximetry (%) 98 Oxygen Delivery Method Room Air Intake Visit Reasons: Follow-Up Dressing Area Allergies citalopram [From Celexa] Adverse Reaction (Mild, Verified 12/13/23 11:49) ANXIETY divalproex sodium [From Depakote] Adverse Reaction (Mild, Verified 12/13/23 11:49) ANXIETY/JUMPY olanzapine [From Zyprexa] Adverse Reaction (Mild, Verified 12/13/23 11:49) ANXIETY paroxetine [From Paxil] Adverse Reaction (Mild, Verified 12/13/23 11:49) ANXIETY HPI HPI Comments 2 History of Present Illness0 Details Patient presents today s/p Right L5 Medial Branch Sprint PNS lead placement on 12/04/[address] Juarez. Patient reports 100% pain relief when the device therapy is on at 62 stimulation setting and gradual return to baseline pain when device is off. Reports significant improvement in her daily functioning and sleep. She continues to experience mild itching around dressing site. Patient denies any recent cough, cold, infection, fever, any significant changes in her medical history, medications or recent hospitalizations. The dressing was removed today. Lead insertion sites is clean, dry, intact, no redness, no erythema, no swelling, no pathological discharge around dressing or lead insertion areas. The area was cleansed with Chloraprep, applied Bacitracin and covered with Sprint Tegaderm film and gauze dressing. Patient reports positive parasthesia at right lower back at 62 stimulation. Pain is rated at 0/10 with PNS device on. PREVIOUS PROCEDURES: [facility] – [place] Management: 12/04/23: Right L5 MB Sprint PNS trial-1 00% pain relief at 62 stimulation 10/03/22: Bilateral L5 MB Sprint PNS tri al-moderate pain relief for right side, left lead pulled out 11/01/22 08/25/22-Right diagnostic L2-L3-L4 L5 MBB-100% pain relief for 2.5 days 04/14/22- Right diagnostic SIJ innervati on-no relief. [facility]: 11/2020 L5-S1 KELECHI 70% relief of radicula r symptoms on left x 7 months 01/2021 Right SIJ injection 75% relief x 1.5 months 04/2021 Right trochanteric bursa injecti on no relief 09/2021 L4-L5 KELECHI minimal relief x [address] Juarez 11/19/23: Carmelina is a a pleasant 53 years old female who is in my office requesting attention to her lower back pain again. In the past she received diagnostic medial branch block and after that she received sprint PNS. Unfortunately during the sprint PNS trial she had lost 1 of her electrodes. While she had the stimulation she experienced significant pain relief. She requests me to repeat the sprint PNS. She is telling me that in the beginning of January she will fly 4 months to [place]. She wants me to perform this procedure under sedation, however she wants it to be done before beginning of January or after the end of January. I will try to schedule it as soon as possible 2 weeks apart. However if her procedure can not be scheduled before December 22 we need to reschedule it in February. Prior: The pain is worse at night. She reports pain onset was gradual, constant and rates the pain a 9/10. She states the pain is interfering with sleep and her ability to function normally. The patient reports the pain in terms of tissue damage as stabbing, throbbing, burning, tingling as well as dull, tiring and fearful. The pain is exacerbated by prolonged sitting/standing as well as climbing upstairs. She has been taking meloxicam, naproxen, baclofen, celebrex with little to no effect on pain. She has also tried flexeril, topicals, heat/ice and tylenol with minimal effect. She has attempted physical therapy in the past with minimal alleviation in symptoms. She went for an evaluation for chiropractic manipulation, but was told she had a pinched nerve and needed an injection not manipulation. She had a lumbar spine MRI which she believes was performed at [facility] in 2018. She was also under the care of [facility] where she had procedures. In 2018 she had a L5-S1 KELECHI which alleviated her pain 100% for one year. She reportedly had that injection repeated in 2019 and had 6 months of relief. Then in September 2021, she had another injection, which only provided 2 weeks of relief. 2019 lesi L5-S1- worked x one year 100% relief second injection 2019 6 months. [facility] Medical History Osteoarthritis of right shoulder Migraines Low back pain Renal calculi GERD (gastroesophageal reflux disease) Surgical History Hx of cystoscopy History of surgery History of hernia repair History of hysterectomy History of appendectomy Hx of endoscopy History of colonoscopy Family History Father History of colon cancer Mother History of diabetes mellitus Social History Alcohol intake: never Patient Tobacco Use Status: Never used Tobacco Sexual orientation: Straight/Heterosexual Gender identity: Female Female Reproductive History Menstrual Age of Menarche: 15 Review of Systems Const All systems reviewed & are unremarkable except as noted in HPI and below Physical Exam General: Appears afebrile. Alert and oriented. Mood and affect appropriate. Follows and participates in conversation appropriately. Respiratory effort is unlabored. Able to transition from sit to stand unassisted. Ambulates with bilaterally normal heel strike and toe off. Lead Insertion Site: Lead insertion sites is clean, dry, intact. No pathological discharge, no swelling and no erythema. Lead site dressing changed today in the clinic. Positive paresthesia at 62 right lower back. Results Reviewed Results Reviewed: EMG: Right tibial and peroneal motor studies were performed.? Right superficial peroneal and sural sensory studies were performed.? Tibial H-reflex was obtained, and the EMG study was performed. ? IMPRESSION:? 1. Right mid to lower lumbar radiculopathy. 2. 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 Assessment & Plan Assessment & Plan (1) Spondylosis of lumbar region without myelopathy or radiculopathy: Code(s): M47.816 - Spondylosis without myelopathy or radiculopathy, lumbar region (2) Low back pain: Code(s): M54.50 - Low back pain, unspecified Plan Patient is status post Right L5 Medial Branch Sprint PNS trial on 12/04/23 with ongoing 100% pain relief for axial right lower back pain when device is on. She reports improved daily activities, functioning and sleep. Dressing change done in clinic today as noted above. Patient prefers weekly Sprint dressing changes in the office. Patient will continue to adjust her stimulation setting as needed and monitor her pain level. All questions were answered and the patient agreed with the plan. Follow up for Sprint removal and sooner if needed. Coding Level of Care Code Est Pt Level 3 (43331) Diagnoses Spondylosis of lumbar region without myelopathy or radiculopathy M47.816 Low back pain M54.50
[2023-12-13 11:49] VITALS: BP 140/90; PULSE 70; RESP 16; O2SAT 98; BMI 38.4
== END 2023-12-13 12:01 | disposition home or self-care (01) ==
LOC: HO.PMC 11:41
PROVIDERS: PCP Family Medicine; Visit Provider Nurse Practitioner Family
DX: M47.816 Spondylosis without myelopathy or radiculopathy, lumbar region (principal); M54.50 Low back pain, unspecified
CPT/HCPCS: 99024

== ENCOUNTER → 2023-12-13 11:41 | Outpatient (BNVA) | payer MEDICAID, SELFPAY | PROVIDERS: PCP Family Medicine; Visit Provider Nurse Practitioner Family | DX: M47.816 Spondylosis without myelopathy or radiculopathy, lumbar region (principal); M54.50 Low back pain, unspecified; Z96.82 Presence of neurostimulator | CPT/HCPCS: 99212 ==

== ENCOUNTER → 2023-12-20 10:30 | Outpatient (BNVA) | payer MEDICAID, SELFPAY | PROVIDERS: PCP Family Medicine | DX: Z48.01 Encounter for change or removal of surgical wound dressing (principal) ==

== ENCOUNTER 2023-12-25 06:36 | Outpatient (REF) | payer MEDICAID, SELFPAY ==
--- NOTE | ~2023-12-25 | FL_ITS ---
EXAMINATION: XR FLUOROSCOPY WITH IMAGES CLINICAL INFORMATION: Spondylosis without myelopathy or radiculopathy of lumbar region. COMPARISON: 12/04/2023 TECHNIQUE: Fluoroscopy Supervised By: Dr. Juarez. Fluoroscopy Time: 0.1 min Cumulative Dose: 4.56 mGy. DAP: 0.077 mGym2. Images: 3. FL/FL guidance in treatment room FINDINGS AND IMPRESSION: This report is provided to document use of fluoroscopic imaging equipment. The tip of a needle is projecting to the left of midline at the L4 (L4/L5) level. A thin caliber catheter is deployed with tip of catheter seen to left of midline at the L4 level, projecting over the lamina on this AP projection.
== END 2023-12-25 06:37 | disposition home or self-care (01) ==
LOC: CF 06:36
PROVIDERS: Visit Provider Anesthesiology
DX: M47.816 Spondylosis without myelopathy or radiculopathy, lumbar region (principal)
CPT/HCPCS: 64555

== ENCOUNTER 2023-12-25 13:16 | Outpatient (AMB) | payer MEDICAID, SELFPAY ==
--- NOTE | 2023-12-25 13:16 | MHC.OFFVIS ---
Intake Vital Signs 12/25/23 13:22 12/25/23 14:42 Height 5 ft 6 in 5 ft 6 in Weight 240 lb 240 lb BMI 38.7 38.7 BP 132/80 130/70 Blood Pressure Location Rt brachial Lt brachial Position Sitting Sitting Respiration 14 14 Pulse 83 74 Pulse Source Pulse Oximeter Pulse Oximeter Pulse Oximetry (%) 98 97 Oxygen Delivery Method Room Air Room Air Comment Pre-Op Post-op Intake Visit Reasons: LEFT L5 MB SPRINT TRIAL Special Procedures Technologist Required: No Accompanied by: Spouse Allergies citalopram [From Celexa] Adverse Reaction (Mild, Verified 12/25/23 13:23) ANXIETY divalproex sodium [From Depakote] Adverse Reaction (Mild, Verified 12/25/23 13:23) ANXIETY/JUMPY olanzapine [From Zyprexa] Adverse Reaction (Mild, Verified 12/25/23 13:23) ANXIETY paroxetine [From Paxil] Adverse Reaction (Mild, Verified 12/25/23 13:23) ANXIETY PFSH Medical History Osteoarthritis of right shoulder Migraines Low back pain Renal calculi GERD (gastroesophageal reflux disease) Surgical History Hx of cystoscopy History of surgery History of hernia repair History of hysterectomy History of appendectomy Hx of endoscopy History of colonoscopy Family History Father History of colon cancer Mother History of diabetes mellitus Social History Alcohol intake: never Patient Tobacco Use Status: Never used Tobacco Sexual orientation: Straight/Heterosexual Gender identity: Female Female Reproductive History Menstrual Age of Menarche: 15 Physical Exam Vital Signs: Last Vital Signs Pulse 74 12/25/23 14:42 Resp 14 12/25/23 14:42 BP 130/70 12/25/23 14:42 Pulse Ox 97 12/25/23 14:42 Oxygen Delivery Method Room Air 12/25/23 14:42 BMI result Body Mass Index 38.7 Assessment & Plan Assessment & Plan (1) Spondylosis of lumbar region without myelopathy or radiculopathy: Code(s): M47.816 - Spondylosis without myelopathy or radiculopathy, lumbar region Plan Sprint PNS L5 left side, completion of the procedure. After the risks, benefits and alternatives were discussed with the patient and informed consent was obtained, patient was placed in the prone position and padded to foster comfort. Time out was performed delineating correct site and side of the procedure , name and of the patient, patient participated in time out procedure. the lower back of the patient was prepped with ChloraPrep and draped with full body fenestrated drape. ?Sterily draped C-arm was brought over the operating field and clear picture of the lumbar spine was demonstrated on the screen. Left L5 lamina was chosen as the target of the tip of the needle position. Projection of the left L4 lamina was chosen as the start of the needle advancement. That point was chosen as the local anesthetic infiltration point. After identifying and marking the intended target, the skin around the planned entry point and the subcutaneous tissues were injected with local anesthetic forming skin wheal.. ?A percutaneous sleeve and stimulating probe lead introduction system were assembled, inserted and advanced through the skin wheal to the? point of interest under C-arm view in oblique vision fashion, the introducer needle was delivered to a location in proximity to the multifidus muscles at the left lamina of L5. Multiple stimulation parameters were used to deliver stimulation to the? nerve in concert with stimulating at multiple positions around the nerve. Nerve target acquisition was confirmed noting generation of? in the? corresponding to the nerve being stimulated. Various electrical parameter combinations were tested, and the lead location was adjusted? until the patient indicated? overlapping the distribution of the patient?s typical region of pain. The stimulating probe was removed from the introducer and a percutaneous lead was guided through the needle and delivered to a location in similar proximity to the nerve. Final location was verified with electrical stimulation. The introducer needle was removed, and the exposed end of the percutaneous lead was attached to an external stimulator unit. Various electrical parameter combinations were again tested until the patient indicated paresthesia or muscle tension overlapping the distribution of the patient?s typical region of pain. After confirming that lead impedance was in the normal range, the external unit was detached, the needle was removed, and the lead was anchored at the skin. The lead was threaded into the connector block and electrical continuity and desired patient response was confirmed. The connector block was attached to the external stimulator unit. The site was covered with a sterile occlusive dressing and an? image was taken to document final placement. ?Upon completion of the procedure the patient was taken outside the OR where he recovered uneventfully she went home without immediate complications Coding Level of Care Code Procedure Only Diagnoses Spondylosis of lumbar region without myelopathy or radiculopathy M47.816
[2023-12-25 13:22] VITALS: BP 132/80; PULSE 83; RESP 14; O2SAT 98; BMI 38.7
[2023-12-25 14:42] VITALS: BP 130/70; PULSE 74; RESP 14; O2SAT 97; BMI 38.7
== END 2023-12-25 14:47 | disposition home or self-care (01) ==
LOC: HO.PMCPRC 13:16
PROVIDERS: PCP Family Medicine; Visit Provider Anesthesiology
DX: M47.816 Spondylosis without myelopathy or radiculopathy, lumbar region (principal)
CPT/HCPCS: 64555

== ENCOUNTER 2023-12-31 13:07 | Outpatient (AMB) | payer MEDICAID, SELFPAY ==
--- NOTE | 2023-12-31 13:22 | A.OFFVIS_ITS ---
Intake Vital Signs 12/31/23 13:30 Height 5 ft 6 in Weight 240 lb BMI 38.7 BP 140/90 H Blood Pressure Location Lt radial Position Sitting Respiration 16 Pulse 78 Pulse Source Pulse Oximeter Pulse Oximetry (%) 98 Oxygen Delivery Method Room Air Intake Visit Reasons: LEFT L5 MB SPRINT TRIAL/ confirm Allergies citalopram [From Celexa] Adverse Reaction (Mild, Verified 12/31/23 13:29) ANXIETY divalproex sodium [From Depakote] Adverse Reaction (Mild, Verified 12/31/23 13:29) ANXIETY/JUMPY olanzapine [From Zyprexa] Adverse Reaction (Mild, Verified 12/31/23 13:29) ANXIETY paroxetine [From Paxil] Adverse Reaction (Mild, Verified 12/31/23 13:29) ANXIETY HPI HPI Comments History of Present Illness Details It has been 3 weeks since we started treatment of the spondylosis of this patient with sprint PNS. She reports appropriate stimulation in the muscles such as sensation of vibration and pulsation. One of her stimulating leads today slightly withdrawn and yet we were able to increase the amplitude and she started to feel stimulation again however she denies that the stimulation helps her pain. It has been 3 weeks since we started the treatment and I do not think we should continue this any further. The sites of the insertions were prepped with ChloraPrep and the electrodes were removed. The Band-Aids were applied. The tips of the electrodes were intact. The patient was given brochure of Nevro SCS to think about this modality to help her axial back pain. I think we should advanced Nevro SCS in the thoracic spine higher than usual position because she reports pain in the lower back with radiation to the bilateral upper loins. We may stagger little bit bigger the electrodes positioning 1 at T6 and the other at top of T9. Meanwhile if patient decides to go for Nevro SCS we need to schedule her for psychological evaluation. PREVIOUS PROCEDURES: [facility] Pain Management: 12/04/23: Right L5 MB Sprint PNS trial-1 00% pain relief at 62 stimulation 10/03/22: Bilateral L5 MB Sprint PNS tri al-moderate pain relief for right side, left lead pulled out 11/01/22 08/25/22-Right diagnostic L2-L3-L4 DR L5 MBB-100% pain relief for 2.5 days 04/14/22- Right diagnostic SIJ innervati on-no relief. [facility] Pain Management: 11/2020 L5-S1 KELECHI 70% relief of radicula r symptoms on left x 7 months 01/2021 Right SIJ injection 75% relief x 1.5 months 04/2021 Right trochanteric bursa injecti on no relief 09/2021 L4-L5 KELECHI minimal relief x 2 luis a Cosme is a a pleasant 53 years old female who is in my office requesting at [facility] to her lower back pain again. In the past she received diagnostic medial branch block and after that she received sprint PNS. Unfortunately during the sprint PNS trial she had lost 1 of her electrodes. While she had the stimulation she experienced significant pain relief. She requests me to repeat the sprint PNS. She is telling me that in the beginning of January she will fly 4 months to [place]. She wants me to perform this procedure under sedation, however she wants it to be done before beginning of January or after the end of January. I will try to schedule it as soon as possible 2 weeks apart. However if her procedure can not be scheduled before December 22 we need to reschedule it in February. Prior: The pain is worse at night. She reports pain onset was gradual, constant and rates the pain a 9/10. She states the pain is interfering with sleep and her ability to function normally. The patient reports the pain in terms of tissue damage as stabbing, throbbing, burning, tingling as well as dull, tiring and fearful. The pain is exacerbated by prolonged sitting/standing as well as climbing upstairs. She has been taking meloxicam, naproxen, baclofen, celebrex with little to no effect on pain. She has also tried flexeril, topicals, heat/ice and tylenol with minimal effect. She has attempted physical therapy in the past with minimal alleviation in symptoms. She went for an evaluation for chiropractic manipulation, but was told she had a pinched nerve and needed an injection not manipulation. She had a lumbar spine MRI which she believes was performed at [facility] in 2018. She was also under the care of [facility] Pain Management where she had procedures. In 2018 she had a L5-S1 KELECHI which alleviated her pain 100% for one year. She reportedly had that injection r epeated in 2019 and had 6 months of relief. Then in September 2021, she had another injection, which only provided 2 weeks of relief. 2019 lesi L5-S1- worked x one year 100% relief second injection 2020 6 months. [facility] Medical History Osteoarthritis of right shoulder Migraines Low back pain Renal calculi GERD (gastroesophageal reflux disease) Surgical History Hx of cystoscopy History of surgery History of hernia repair History of hysterectomy History of appendectomy Hx of endoscopy History of colonoscopy Family History Father History of colon cancer Mother History of diabetes mellitus Social History Alcohol intake: never Patient Tobacco Use Status: Never used Tobacco Sexual orientation: Straight/Heterosexual Gender identity: Female Female Reproductive History Menstrual Age of Menarche: 15 Review of Systems Const All systems reviewed & are unremarkable except as noted in HPI and below ENT Reports Normal hearing present Neuro Reports Normal hearing present, Denies Abnormal speech present and Denies confusion Psych Denies confusion Physical Exam Vital Signs: Last Vital Signs Pulse 78 12/31/23 13:30 Resp 16 12/31/23 13:30 BP 140/90 H 12/31/23 13:30 Pulse Ox 98 12/31/23 13:30 Oxygen Delivery Method Room Air 12/31/23 13:30 BMI result Body Mass Index 38.7 Const Other: moderately uncomfortable General: No confusion Nutritional Appearance: obese Orientation/consciousness: No confusion Limitations: no limitations HEENT Head: Yes normal to inspection, Yes normocephalic and Yes atraumatic Ears: hearing grossly normal bilaterally Eyes General: appearance normal, both eyes and all related structures Neck Neck: Yes normal visual inspection, Yes supple and Yes no JVD Resp Effort & Inspection: normal respiratory effort, able to speak in complete sentences and no audible wheezes Back/Spine/Pelvis Other: Patient able to walk on heels and tip toes with no difficulties demonstrating good motor tone. Can flex forward to 50-60 degrees and extend to 10 degrees before experiencing lumbar pain. Reports more pain with lumbar extension. Demonstrates 5/5 strength of quadriceps bilaterally as well as flexion/dorsiflexion of bilateral feet against resistance. Straight leg rise with dorsiflexion + on the right. DTR diminished. Jordan test, Stinchfield test, Pelvic compression test and Aida's finger test + on the right. Facet loading test + bilaterally, R>L. Sensation diminished in the RLE in the distribution of the L5 nerve root. Thoracic/Lumbar Spine: thoracic and lumbar spine normal to inspection, No Thoracic/lumbar spine scar(s), pain with thoraco-lumbar ROM, paraspinal muscle tenderness, thoraco-lumbar ROM limited, No thoracic spinal tenderness and lumbar spinal tenderness Sacroiliac joints: on the right tender to palpation Neuro General: No confusion Cranial nerves: Yes Normal hearing present Speech: No Abnormal speech present Psych Appearance: grossly normal Mental Status: mental status grossly normal Speech and movement: Normal speech and movement present Affect: normal affect Attitude: cooperative Thought process: Normal thought process present Thought content: Normal thought content present Insight: Good insight present (Psych) Judgement: Good judgement present (Psych) Assessment & Plan Assessment & Plan (1) Spondylosis of lumbar region without myelopathy or radiculopathy: Code(s): M47.816 - Spondylosis without myelopathy or radiculopathy, lumbar region (2) Low back pain: Code(s): M54.50 - Low back pain, unspecified (3) Sacroiliac joint pain: Code(s): M53.3 - Sacrococcygeal disorders, not elsewhere classified (4) Lumbar radiculopathy, right: Code(s): M54.16 - Radiculopathy, lumbar region Plan The patient started to complained on the sprint PNS does not help her pain. She reports appropriate stimulation in appropriate positions and appropriate sites left and right however she denies that did help her pain. She reports her pain today quite elevated. I removed the stimulating electrodes today tips are intact. Nevro brochure was given for patient to read. If she decides to go for a trial she needs to be scheduled for psychological evaluation. Coding Level of Care Code Est Pt Level 3 (78698) Diagnoses Spondylosis of lumbar region without myelopathy or radiculopathy M47.816 Low back pain M54.50 Sacroiliac joint pain M53.3 Lumbar radiculopathy, right M54.16
[2023-12-31 13:30] VITALS: BP 140/90; PULSE 78; RESP 16; O2SAT 98; BMI 38.7
== END 2023-12-31 14:02 | disposition home or self-care (01) ==
PROVIDERS: PCP Family Medicine; Visit Provider Anesthesiology
DX: M47.816 Spondylosis without myelopathy or radiculopathy, lumbar region (principal); M54.50 Low back pain, unspecified; M53.3 Sacrococcygeal disorders, not elsewhere classified; M54.16 Radiculopathy, lumbar region
CPT/HCPCS: 99024

== ENCOUNTER → 2023-12-31 13:07 | Outpatient (BNVA) | payer MEDICAID, SELFPAY | PROVIDERS: PCP Family Medicine; Visit Provider Anesthesiology | DX: M47.816 Spondylosis without myelopathy or radiculopathy, lumbar region (principal); M54.50 Low back pain, unspecified; M53.3 Sacrococcygeal disorders, not elsewhere classified; M54.16 Radiculopathy, lumbar region | CPT/HCPCS: 99212 ==

== ENCOUNTER 2024-01-22 13:28 | Outpatient (REF) | payer MEDICAID, SELFPAY ==
[2024-01-22 16:38] LABS: Estimated Average Glucose 126 mg/dL
[2024-01-22 16:45] LABS: Alanine Aminotransferase 19 U/L (0-31); Albumin Level 4.4 g/dL (3.5-5.0); Alkaline Phosphatase 95 U/L (39-117); Anion Gap 13 (12-20); Aspartate Amino Transferase 18 U/L (5-31); Bilirubin Total 0.3 mg/dL (0.0-1.0); Blood Urea Nitrogen 8 mg/dL (9-16); Calcium 10.2 mg/dL (8.4-10.2); Carbon Dioxide 29 mmol/L (22-29); Chloride 104 mmol/L (96-108); Cholesterol 230 mg/dL (<200); Estimated Glomerular Filt Rate > 60; Glucose Random 116 mg/dL (60-115); HDL Cholesterol 56 mg/dL (>40); LDL Cholesterol Calculated 153 mg/dL (<100); Sodium 142 mmol/L (135-145); Total Protein 8.2 g/dL (6.5-8.0); Triglycerides 109 mg/dL (<150)
[2024-01-22 17:00] LABS: TSH reflex Free T4 0.69 uIU/mL (0.32-4.0); Vitamin D 25-OH Total 35.2 ng/mL (>30)
[2024-01-22 17:16] LABS: Reflex LDLD? No
== END 2024-01-22 13:29 | disposition home or self-care (01) ==
LOC: HO.HHCL 13:28
PROVIDERS: Visit Provider Family Medicine
DX: E55.9 Vitamin D deficiency, unspecified (principal); R73.03 Prediabetes
CPT/HCPCS: 36415; 80053; 80061; 82306; 83036; 84443

== ENCOUNTER 2024-02-21 08:21 | Outpatient (AMB) | payer MEDICAID, SELFPAY ==
--- NOTE | 2024-02-21 08:24 | A.OFFVIS_ITS ---
Vital Signs 02/21/24 08:29 Height 5 ft 6 in Weight 238 lb BMI 38.4 BP 137/62 Blood Pressure Location Lt brachial Position Sitting Pulse 71 Intake Visit Reasons: follow up [facility]IC Intake Note: Patient follow up for [facility]IC Patient cc: abdominal pain with inflammation, acid reflex with burning sensation. International Guest Coordinator Required: Yes International Guest Coordinator Name: [facility] Interpeter Accompanied by: Self / Same As Patient Allergies citalopram [From Celexa] Adverse Reaction (Mild, Verified 02/21/24 08:27) ANXIETY divalproex sodium [From Depakote] Adverse Reaction (Mild, Verified 02/21/24 08:27) ANXIETY/JUMPY olanzapine [From Zyprexa] Adverse Reaction (Mild, Verified 02/21/24 08:27) ANXIETY paroxetine [From Paxil] Adverse Reaction (Mild, Verified 02/21/24 08:27) ANXIETY HPI HPI follow up [facility]IC: Details: Assessment & Plan (1) Family history of colon cancer in father: ?Comment: in , 2022 scope negative repeat in 5 years ?Code(s): Z80.0 - Family history of malignant neoplasm of digestive organs ?Plan: [place] The procedure needs to be repeated in 5 years r/t the FHX of crc.? The procedure was well tolerated.? The results were explained and the patient is agreeable to the follow-up interval as stated.? The bowel pattern has returned to normal.? Education was provided to tell any 1st degree relatives about their findings to be sure that they are screened by age 45.? Educated that they will be put on a recall list when it is time for their repeat scope but should they move out of state or away from the hospital they will need to remember along with their primary to repeat the procedure in a timely fashion to avoid any adverse complications. She is tolerating the 5mg reglan well, but this has not resolved the pain although it has decreased it. She has had no a/e so we will increase the dose. She is a bigger gal, so this may be weight/BMI appropriate. So far, this has not helped the bloating. It has helped the N/V. She continues to move her bowels well with the Linzess 72mcg, and she continues on her protonix bid and dicyclomine. ROV 4 weeks. (2) Chronic idiopathic constipation: ?Code(s): K59.04 - Chronic idiopathic constipation (3) Nausea and vomiting: ?Code(s): R11.2 - Nausea with vomiting, unspecified (4) GERD (gastroesophageal reflux disease): ?Code(s): K21.9 - Gastro-esophageal reflux disease without esophagitis ? ? ? Medications: New metoclopramide HCl (Reglan) 10 mg? PO QIDACHS 120 tabs 6RF K59.04 - Chronic idiopathic constipation, R11.2 - Nausea with vomiting, unspecified ? Discontinued metoclopramide HCl (Reglan) ?? Discontinued Reason:? Doctor's Order 5 mg? PO QIDACHS 120 tabs 3RF K59.04 - Chronic idiopathic constipation, R11.2 - Nausea with vomiting, unspecifie TODAY'S VISIT [place] #[place] She is having a lot of bloating in her abdomen after eating, mostly in the upper abd. She has only been taking the reglan qhs, so this is the reason. I explain how it works and that this is for her bloating but she needs to take it before meals. She thought that this might be making her anxious salt decrease the dose to 5 mg and see if she can tolerate it more frequently since she was on 10 mg 4 times a day. She is taking the dicyclomine only at bedtime because it makes her sleepy and this is perfectly fine. She continues on her pantoprazole 40 mg twice a day. She has been out of her Linzess for quite a few weeks because the pharmacy is telling her insurance will cover it. I will see what is going on with this and if we need a PA and try to get her reestablished on this. Fortunately she has not struggled to badly with constipation as she has been trying to adjust her diet. However she does frequently get into trouble and she really did better when she was on this medicine and this may be contributing to her bloating. Return office visit in 6 weeks to evaluate her response . [facility] Medical History Osteoarthritis of right shoulder Migraines Low back pain Renal calculi GERD (gastroesophageal reflux disease) Surgical History Hx of cystoscopy History of surgery History of hernia repair History of hysterectomy History of appendectomy Hx of endoscopy History of colonoscopy Family History Father History of colon cancer Mother History of diabetes mellitus Social History Alcohol intake: never Patient Tobacco Use Status: Never used Tobacco Sexual orientation: Straight/Heterosexual Gender identity: Female Female Reproductive History Menstrual Age of Menarche: 15 Review of Systems Const Denies fatigue, Denies fever(s), Denies night sweats, Denies poor appetite and Denies weight loss ENT Reports Normal hearing present, Denies dental pain, Denies dysphagia, Denies hearing loss, Denies mouth pain, Denies odynophagia, Denies throat swelling, Denies tongue swelling and Reports other (Dentition adequate) Card Reports no additional complaints Resp Reports no additional complaints GI Details: Denies abdominal pain, Denies melena, Reports bloating, Denies hematochezia, Reports constipation, Denies GI cramping, Denies dysphagia, Denies excessive flatus, Denies early satiety, Reports heartburn, Denies diarrhea, Denies nausea, Denies odynophagia, Denies vomiting and Denies hematemesis Skin/Breast Denies pruritus, Denies lesions, Denies rash and Denies jaundice Neuro Reports Normal hearing present and Denies Abnormal speech present Endo Denies fatigue Aller/Immun Denies throat swelling and Denies tongue swelling Physical Exam Vital Signs: Last Vital Signs Pulse 71 02/21/24 08:29 BP 137/62 02/21/24 08:29 BMI result Body Mass Index 38.4 Const General: cooperative, no acute distress, well developed and well groomed Nutritional Appearance: well nourished and obese Orientation/consciousness: oriented to person, oriented to place and oriented to time Limitations: language barrier HEENT Head: Yes normocephalic and Yes atraumatic Eyes General: appearance normal, both eyes and all related structures Pupils: Equal, round and reactive pupils present Neck Neck: Yes normal visual inspection and Yes no lymphadenopathy Thyroid: Thyroid normal Resp Effort & Inspection: normal respiratory effort and able to speak in complete sentences Auscultation: clear to auscultation bilaterally Cardio Rate: regular rate Rhythm: regular rhythm Heart sounds: Normal, physiologic split S2 sound present Peripheral pulses: radial pulses present and posterior tibial pulses present GI Inspection: No distended, Yes Abdominal panniculus present and Yes obesity Palpation (GI): Soft to palpation, nontender, no guarding, not rigid and No hepatosplenomegaly present Percussion: Yes normal to percussion Auscultation: normal bowel sounds Rectal Exam - Female: deferred Skin General skin exam: no rashes or lesions noted, turgor normal, skin not dry, no jaundice, No spider nevi and no striae Rashes: no rashes Nails: normal Neuro General: oriented to person, oriented to place and oriented to time Cranial nerves: Yes Equal, round and reactive pupils present and Yes Normal hearing present Speech: No Abnormal speech present Extrem General: Yes normal to inspection, No clubbing, No cyanosis and No edema Psych Appearance: grossly normal and well kempt Mental Status: mental status grossly normal Speech and movement: Normal speech and movement present Affect: normal affect Attitude: cooperative Thought process: Normal thought process present and not confabulating Thought content: Normal thought content present Insight: Fair insight present (Psych) and Limited insight present (Psych) Judgement: Fair judgement present (Psych) and Limited judgement present (Psych) Assessment & Plan Assessment & Plan (1) Chronic idiopathic constipation: Code(s): K59.04 - Chronic idiopathic constipation Category: Medical (2) GERD (gastroesophageal reflux disease): Code(s): K21.9 - Gastro-esophageal reflux disease without esophagitis Category: Medical (3) Functional dyspepsia: Code(s): K30 - Functional dyspepsia Category: Medical Plan [place] #[place], Live She is having a lot of bloating in her abdomen after eating, mostly in the upper abd. She has only been taking the reglan qhs, so this is the reason. I explain how it works and that this is for her bloating but she needs to take it before meals. She thought that this might be making her anxious salt decrease the dose to 5 mg and see if she can tolerate it more frequently since she was on 10 mg 4 times a day. She is taking the dicyclomine only at bedtime because it makes her sleepy and this is perfectly fine. She continues on her pantoprazole 40 mg twice a day. She has been out of her Linzess for quite a few weeks because the pharmacy is telling her insurance will cover it. I will see what is going on with this and if we need a PA and try to get her reestablished on this. Fortunately she has not struggled to badly with constipation as she has been trying to adjust her diet. However she does frequently get into trouble and she really did better when she was on this medicine and this may be contributing to her bloating. Return office visit in 6 weeks to evaluate her response Medications: New metoclopramide HCl (Reglan) please dispense in bottle and NOT in med box!! Decreasing dose 5 mg PO QIDACHS 120 tabs 6RF K30 - Functional dyspepsia Changed From dicyclomine 20 mg PO QID 120 tabs 6RF R10.9 - Unspecified abdominal pain To dicyclomine Please decrease qty and put in bottle not in med box 20 mg PO BID 60 tabs 6RF R10.9 - Unspecified abdominal pain Refilled pantoprazole 40 mg PO BID 60 tabs 6RF dicyclomine 20 mg PO QID 120 tabs 6RF R10.9 - Unspecified abdominal pain linaclotide (Linzess) 72 mcg PO QAM 30 caps 6RF K59.04 - Chronic idiopathic constipation Discontinued metoclopramide HCl Discontinued Reason: Doctor's Order 10 mg PO QID 120 tabs 6RF K59.04 - Chronic idiopathic constipation, R11.2 - Nausea with vomiting, unspecified Coding Level of Care Code Est Pt Level 3 (64217) Diagnoses Chronic idiopathic constipation K59.04 GERD (gastroesophageal reflux disease) K21.9 Functional dyspepsia K30
[2024-02-21 08:29] VITALS: BP 137/62; PULSE 71; BMI 38.4
== END 2024-02-21 08:45 | disposition home or self-care (01) ==
PROVIDERS: PCP Family Medicine; Visit Provider Nurse Practitioner
DX: K59.04 Chronic idiopathic constipation (principal); K21.9 Gastro-esophageal reflux disease without esophagitis; K30 Functional dyspepsia
CPT/HCPCS: 99213

== ENCOUNTER → 2024-02-21 08:21 | Outpatient (BNVA) | payer MEDICAID, SELFPAY | PROVIDERS: PCP Family Medicine; Visit Provider Nurse Practitioner | DX: K59.04 Chronic idiopathic constipation (principal); K21.9 Gastro-esophageal reflux disease without esophagitis; K30 Functional dyspepsia; Z79.899 Other long term (current) drug therapy | CPT/HCPCS: 99212 ==

== ENCOUNTER 2024-03-05 08:51 | Outpatient (REF) | payer MEDICAID, SELFPAY ==
--- NOTE | ~2024-03-05 | MR_ITS ---
EXAMINATION: MR LUMBAR SPINE WITHOUT CONTRAST CLINICAL INFORMATION: Chronic low back pain. Right lower extremity pain. COMPARISON: CT abdomen and pelvis 06/23/2023. TECHNIQUE: MRI of the lumbar spine was obtained using routine sequences without contrast. FINDINGS: Alignment is normal. Vertebral body heights are preserved. No acute bone marrow signal changes. There is disc desiccation at L5-S1 without substantial loss of intervertebral disc height. The tip of the conus medullaris is located at L1. No mass effect on the conus. Visualized distal cord signal intensity is normal. At L1-L2, L2-L3, L3-L4, and L4-L5 the annular contours are normal. No canal or neuroforaminal compromise at these levels. At L5-S1 there is a bulging disc. Bilateral facet degenerative change. No canal stenosis. Partial effacement of the perineural fat with mild mass effect on both L5 foraminal nerve roots, greater on the right. Limited visualization of the retroperitoneal anatomy reveals no abnormal finding. Psoas and paraspinal muscle groups are symmetric. MR/MR lumbar spine wo con IMPRESSION: There is a bulging disc in conjunction with facet degenerative change at L5-S1 causing mild mass effect on both L5 foraminal nerve roots, greater on the right. Otherwise no substantial mass effect on the traversing or foraminal nerve roots elsewhere within the lumbar spine. No canal stenosis.
== END 2024-03-05 08:52 | disposition home or self-care (01) ==
LOC: HO.MRI 08:51
PROVIDERS: PCP Family Medicine; Visit Provider Family Medicine
DX: G89.29 Other chronic pain (principal); M54.50 Low back pain, unspecified
CPT/HCPCS: 72148

== ENCOUNTER 2024-04-02 08:18 | Outpatient (REF) | payer MEDICAID, SELFPAY ==
--- NOTE | ~2024-04-02 | XR_ITS ---
EXAMINATION: XR ABDOMEN KUB CLINICAL INDICATION: Personal history of urinary tract calculi. COMPARISON: CT 06/23/2023 TECHNIQUE: AP view of the abdomen. FINDINGS: The bowel gas pattern is normal with no evidence of ileus or obstruction. No renal calculi are seen and the small 3 mm maximal size calculi seen on most recent CT scan from 06/23/2023 are not appreciated on the current study. No unusual soft tissue calcifications are noted. The bones are unremarkable. XR/XR KUB IMPRESSION: No renal calculi are seen.
== END 2024-04-02 08:19 | disposition home or self-care (01) ==
LOC: HO.XRAY 08:18
PROVIDERS: PCP Family Medicine; Visit Provider Urology
DX: Z09 Encounter for follow-up examination after completed treatment for conditions other than malignant neoplasm (principal); Z87.442 Personal history of urinary calculi
CPT/HCPCS: 74018

== ENCOUNTER 2024-04-03 09:31 | Outpatient (AMB) | payer MEDICAID, SELFPAY ==
--- NOTE | 2024-04-03 09:40 | MHC.OFFVIS ---
Vital Signs 04/03/24 09:41 Height 5 ft 6 in Weight 238 lb 15.697 oz BMI 38.6 BP 121/57 L Blood Pressure Location Rt brachial Position Sitting Pulse 75 Intake Visit Reasons: 6 week cic gerd Allergies citalopram [From Celexa] Adverse Reaction (Mild, Verified 04/03/24 09:44) ANXIETY divalproex sodium [From Depakote] Adverse Reaction (Mild, Verified 04/03/24 09:44) ANXIETY/JUMPY olanzapine [From Zyprexa] Adverse Reaction (Mild, Verified 04/03/24 09:44) ANXIETY paroxetine [From Paxil] Adverse Reaction (Mild, Verified 04/03/24 09:44) ANXIETY HPI HPI 6 week cic gerd: Details: Assessment & Plan (1) Chronic idiopathic constipation: Code(s): K59.04 - Chronic idiopathic constipation Category: Medical (2) GERD (gastroesophageal reflux disease): Code(s): K21.9 - Gastro-esophageal reflux disease without esophagitis Category: Medical (3) Functional dyspepsia: Code(s): K30 - Functional dyspepsia Category: Medical Plan [place] #Husasin, Jerad She is having a lot of bloating in her abdomen after eating, mostly in the upper abd. She has only been taking the reglan qhs, so this is the reason. I explain how it works and that this is for her bloating but she needs to take it before meals. She thought that this might be making her anxious salt decrease the dose to 5 mg and see if she can tolerate it more frequently since she was on 10 mg 4 times a day. She is taking the dicyclomine only at bedtime because it makes her sleepy and this is perfectly fine. She continues on her pantoprazole 40 mg twice a day. She has been out of her Linzess for quite a few weeks because the pharmacy is telling her insurance will cover it. I will see what is going on with this and if we need a PA and try to get her reestablished on this. Fortunately she has not struggled to badly with constipation as she has been trying to adjust her diet. However she does frequently get into trouble and she really did better when she was on this medicine and this may be contributing to her bloating. Return office visit in 6 weeks to evaluate her response Medications: New metoclopramide HCl (Reglan) please dispense in bottle and NOT in med box!! Decreasing dose 5 mg PO QIDACHS 120 tabs 6RF K30 - Functional dyspepsia Changed From dicyclomine 20 mg PO QID 120 tabs 6RF R10.9 - Unspecified abdominal pain To dicyclomine Please decrease qty and put in bottle not in med box 20 mg PO BID 60 tabs 6RF R10.9 - Unspecified abdominal pain Refilled pantoprazole 40 mg PO BID 60 tabs 6RF dicyclomine 20 mg PO QID 120 tabs 6RF R10.9 - Unspecified abdominal pain linaclotide (Linzess) 72 mcg PO QAM 30 caps 6RF K59.04 - Chronic idiopathic constipation Discontinued metoclopramide HCl Discontinued Reason: Doctor's Order 10 mg PO QID 120 tabs 6RF K59.04 - Chronic idiopathic constipation, R11.2 - Nausea with vomiting, unspecified TODAY'S VISIT Gu[place]ian #[id number] Since decreasing the reglan she is having worse acid brash and reflux, worse in the am. HOwever, her anxiety is better. I think we need to find a middle ground, so I will have her take 1 tab tid and 2 tabs qhs. She has a very sharp LUQ pain that is intermittent and severe. When it comes she will have to bend to make the pain better. It can last form hours to day. She feels like the area is inflamed and goes all the way to my back. The associating with eating is unclear. She denies any urine problems. She denies any CIC or diarrhea. She does have a hx of renal stones. She continues on Linzess 72 micro g, pantoprazole twice a day, and dicyclomine. PE is significant for pain with ROM. I will get a thoracic back xray. Also a very brief trial of prednisone. I encouraged her to keep a journal so she can see whether or not the pain response to the prednisone therapy. ROV 6 weeks. . PFSH Medical History Kidney stones Hydronephrosis Obstruction of left ureteropelvic junction (UPJ) due to stone Hematuria Left ureteral stone Low back pain Abdominal cramping Well woman exam Upper abdominal pain Osteoarthritis of right shoulder Migraines Low back pain Renal calculi GERD (gastroesophageal reflux disease) Surgical History Hx of cystoscopy History of surgery History of hernia repair History of hysterectomy History of appendectomy Hx of endoscopy History of colonoscopy Family History Father History of colon cancer Mother History of diabetes mellitus Social History Alcohol intake: never Patient Tobacco Use Status: Never used Tobacco Sexual orientation: Straight/Heterosexual Gender identity: Female Female Reproductive History Menstrual Age of Menarche: 15 Review of Systems Const Denies fatigue, Denies fever(s), Denies night sweats, Denies poor appetite and Denies weight loss ENT Reports Normal hearing present, Denies dental pain, Denies dysphagia, Denies hearing loss, Denies mouth pain, Denies odynophagia, Denies throat swelling, Denies tongue swelling and Reports other (Dentition adequate) Card Reports no additional complaints Resp Reports no additional complaints GI Details: Denies abdominal pain, Denies melena, Reports bloating, Denies hematochezia, Reports constipation, Denies GI cramping, Denies dysphagia, Denies excessive flatus, Denies early satiety, Reports heartburn, Denies diarrhea, Reports nausea, Denies odynophagia, Denies vomiting and Denies hematemesis Skin/Breast Denies pruritus, Denies lesions, Denies rash and Denies jaundice Neuro Reports Normal hearing present and Denies Abnormal speech present Psych Reports anxiety Endo Denies fatigue Aller/Immun Denies throat swelling and Denies tongue swelling Physical Exam Vital Signs: Last Vital Signs Pulse 75 04/03/24 09:41 BP 121/57 L 04/03/24 09:41 BMI result Body Mass Index 38.6 Const General: cooperative, no acute distress, well developed and well groomed Nutritional Appearance: well nourished and obese Orientation/consciousness: oriented to person, oriented to place and oriented to time Limitations: language barrier HEENT Head: Yes normocephalic and Yes atraumatic Eyes General: appearance normal, both eyes and all related structures Pupils: Equal, round and reactive pupils present Neck Neck: Yes normal visual inspection and Yes no lymphadenopathy Thyroid: Thyroid normal Resp Effort & Inspection: normal respiratory effort and able to speak in complete sentences Auscultation: clear to auscultation bilaterally Cardio Rate: regular rate Rhythm: regular rhythm Heart sounds: Normal, physiologic split S2 sound present Peripheral pulses: radial pulses present and posterior tibial pulses present GI Inspection: No distended, Yes Abdominal panniculus present and Yes obesity Palpation (GI): Soft to palpation, nontender, no guarding, not rigid and No hepatosplenomegaly present Percussion: Yes normal to percussion Auscultation: normal bowel sounds Rectal Exam - Female: deferred General: Yes no CVA tenderness Back/Spine/Pelvis Other: pain with forward flexion and ROM limited to 25% r/t pain, also pain with tilt and twist and with rib compression Back: no CVA tenderness Thoracic/Lumbar Spine: pain with thoraco-lumbar ROM and No thoracic spinal tenderness Skin General skin exam: no rashes or lesions noted, turgor normal, skin not dry, no jaundice, No spider nevi and no striae Rashes: no rashes Nails: normal Neuro General: oriented to person, oriented to place and oriented to time Cranial nerves: Yes Equal, round and reactive pupils present and Yes Normal hearing present Speech: No Abnormal speech present Extrem General: Yes normal to inspection, No clubbing, No cyanosis and No edema Psych Appearance: grossly normal and well kempt Mental Status: mental status grossly normal Speech and movement: Normal speech and movement present Affect: normal affect Attitude: cooperative Thought process: Normal thought process present and not confabulating Thought content: Normal thought content present Insight: Limited insight present (Psych) Judgement: Limited judgement present (Psych) Assessment & Plan Assessment & Plan (1) Chronic idiopathic constipation: Code(s): K59.04 - Chronic idiopathic constipation Category: Medical (2) GERD (gastroesophageal reflux disease): Code(s): K21.9 - Gastro-esophageal reflux disease without esophagitis Category: Medical (3) Nausea and vomiting: Code(s): R11.2 - Nausea with vomiting, unspecified Category: Medical (4) Functional dyspepsia: Code(s): K30 - Functional dyspepsia Category: Medical (5) Thoracic back pain: Code(s): M54.6 - Pain in thoracic spine Category: Medical Plan [place]ian #[id number] Since decreasing the reglan she is having worse acid brash and reflux, worse in the am. HOwever, her anxiety is better. I think we need to find a middle ground, so I will have her take 1 tab tid and 2 tabs qhs. She has a very sharp LUQ pain that is intermittent and severe. When it comes she will have to bend to make the pain better. It can last form hours to day. She feels like the area is inflamed and goes all the way to my back. The associating with eating is unclear. She denies any urine problems. She denies any CIC or diarrhea. She does have a hx of renal stones. She continues on Linzess 72 micro g, pantoprazole twice a day, and dicyclomine. PE is significant for pain with ROM. I will get a thoracic back xray. Also a very brief trial of prednisone. I encouraged her to keep a journal so she can see whether or not the pain response to the prednisone therapy. ROV 6 weeks. . Orders: Orders XR thoracic spine 2V Today M54.6 - Pain in thoracic spine Medications: New prednisone 2 tabs day 1 and 1 tab for 2 days orally daily; 4 tabs 0RF Changed From metoclopramide HCl (Reglan) please dispense in bottle and NOT in med box!! Decreasing dose 5 mg PO QIDACHS 120 tabs 6RF K30 - Functional dyspepsia To metoclopramide HCl (Reglan) 1 tab tid and 2 qhs orally 4 times a day before meal/bed; please dispense in bottle and NOT in med box!! Decreasing dose 150 tabs 6RF K30 - Functional dyspepsia Coding Level of Care Code Est Pt Level 3 (07627) Diagnoses Chronic idiopathic constipation K59.04 GERD (gastroesophageal reflux disease) K21.9 Nausea and vomiting R11.2 Functional dyspepsia K30 Thoracic back pain M54.6
[2024-04-03 09:41] VITALS: BP 121/57; PULSE 75; BMI 38.6
--- NOTE | 2024-04-03 09:41 | MHC.OFFVIS ---
Vital Signs 04/03/24 09:41 Height 5 ft 6 in Weight 238 lb 15.697 oz BMI 38.6 BP 121/57 L Blood Pressure Location Rt brachial Position Sitting Pulse 75 Intake Visit Reasons: 6 week cic gerd Intake Note: Carmelina returns to in office follow up of CIC. CC: Patient c/o heartburn and LUQ abdominal pain. Denies other GI symptoms today. 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 Accompanied by: Self / Same As Patient Allergies citalopram [From Celexa] Adverse Reaction (Mild, Verified 04/03/24 09:44) ANXIETY divalproex sodium [From Depakote] Adverse Reaction (Mild, Verified 04/03/24 09:44) ANXIETY/JUMPY olanzapine [From Zyprexa] Adverse Reaction (Mild, Verified 04/03/24 09:44) ANXIETY paroxetine [From Paxil] Adverse Reaction (Mild, Verified 04/03/24 09:44) ANXIETY PFSH Medical History Kidney stones Hydronephrosis Obstruction of left ureteropelvic junction (UPJ) due to stone Hematuria Left ureteral stone Low back pain Abdominal cramping Well woman exam Upper abdominal pain Osteoarthritis of right shoulder Migraines Low back pain Renal calculi GERD (gastroesophageal reflux disease) Surgical History Hx of cystoscopy History of surgery History of hernia repair History of hysterectomy History of appendectomy Hx of endoscopy History of colonoscopy Family History Father History of colon cancer Mother History of diabetes mellitus Social History Alcohol intake: never Patient Tobacco Use Status: Never used Tobacco Sexual orientation: Straight/Heterosexual Gender identity: Female Female Reproductive History Menstrual Age of Menarche: 15 Coding
== END 2024-04-03 10:26 | disposition home or self-care (01) ==
PROVIDERS: PCP Family Medicine; Visit Provider Nurse Practitioner
DX: K59.04 Chronic idiopathic constipation (principal); K21.9 Gastro-esophageal reflux disease without esophagitis; R11.2 Nausea with vomiting, unspecified; K30 Functional dyspepsia; M54.6 Pain in thoracic spine
CPT/HCPCS: 99213

== ENCOUNTER → 2024-04-03 09:31 | Outpatient (BNVA) | payer MEDICAID, SELFPAY | PROVIDERS: PCP Family Medicine; Visit Provider Nurse Practitioner | DX: K59.04 Chronic idiopathic constipation (principal); K21.9 Gastro-esophageal reflux disease without esophagitis; K30 Functional dyspepsia; R11.2 Nausea with vomiting, unspecified; M54.6 Pain in thoracic spine | CPT/HCPCS: 99212 ==

== ENCOUNTER 2024-04-10 13:52 | Outpatient (AMB) | payer MEDICAID, SELFPAY ==
--- NOTE | 2024-04-10 14:07 | A.OFFVIS_ITS ---
Intake Visit Reasons: 1y/KUB Intake Note: Patient presents to office for a follow-up on Kidney Stone KUB Results medications: Tamsulosin prn when passing kidney stones Blood thinners: none ABX allergies: none Power Transformer Inspector Required: Yes Power Transformer Inspector Language: Brass Pourer Name: Conner Carter Information Interpreted: non-clinical & clinical Accompanied by: Child Allergies citalopram [From Celexa] Adverse Reaction (Mild, Verified 04/10/24 14:09) ANXIETY divalproex sodium [From Depakote] Adverse Reaction (Mild, Verified 04/10/24 14:09) ANXIETY/JUMPY olanzapine [From Zyprexa] Adverse Reaction (Mild, Verified 04/10/24 14:09) ANXIETY paroxetine [From Paxil] Adverse Reaction (Mild, Verified 04/10/24 14:09) ANXIETY Medication List - Last Reconciled 04/10/24 by Malissa Wilson MD cetirizine 10 mg PO DAILY cholecalciferol (vitamin D3) 25 mcg PO QAM dicyclomine 20 mg PO BID fluticasone propion-salmeterol 230-21 mcg/actuation (Advair HFA) 2 puffs inhalation BID lidocaine 5% (Lidoderm) 1 patch topical DAILY linaclotide (Linzess) 72 mcg PO QAM metoclopramide HCl (Reglan) 1 tab tid and 2 qhs orally 4 times a day before meal/bed; please dispense in bottle and NOT in med box!! Decreasing dose montelukast 10 mg PO QPM naproxen 500 mg PO BID PRN ondansetron HCl (Zofran) 4 mg PO Q6H pantoprazole 40 mg PO BID prednisone 2 tabs day 1 and 1 tab for 2 days orally daily; pyridoxine (vitamin B6) 100 mg PO DAILY rimegepant (Nurtec ODT) 75 mg PO ONCE PRN vitamin B complex (B Complex-Vitamin B12 tablet) 1 tab PO DAILY HPI Comments Details: 04/10/2024--The patient is here for follow-up for history of kidney stones. Certified perfect bind machine operator present. I have reviewed KUB film, 04/01/2024, no radiopaque calcifications seen overlying the renal fossa. official reading pending. The patient denies any recurrent symptoms of renal colic or gross hematuria. Encouraged to continue with diet modification, importance of good hydration and adding lemon to the water. I will prescribe vitamin B6 to take daily. Continue to monitor follow-up on 1 year renal ultrasound prior. Review of chart: 04/11/23-- The patient is a Maori speaking female. Certified perfect bind machine operator was present during the visit. The patient states having right sided pain which I have reviewed with her the US results and discussed that the right sided pain is likely not of related to the kidneys based on renal sono results. Evaluation today-- Blood: 200 Ovidio/uL, leukocytes: negative. Discussed 24 hour urine results--collected 02/21/23: Total volume 1.52 L, Calcium 125 mg; Oxalate 30 mg, Sodium 209, Citrate 896mg. Instructed on importance of fluid intake, Low oxalate diet, low sodium diet. CTAP results reviewed--12/01/22-- Tiny calculi in the right kidney measuring up to 3 mm. US retroperitoneal results reviewed? 03/22/23--Resolved left-sided hydronephrosis. No calculi in the right kidney. There is reported possible left kidney stone which may be artifact. 01/10/23--perfect bind machine operator used for this visit. Patient presents today for office cystoscopy and stent removal. She is status post cystoscopy bilateral retrograde right ureteral stent, at time of procedure left ureteral stone was not visualized. I also discussed that on CT scan there was a nonobstructing small right kidney stone. The patient states that she was followed by another urologist due to history of kidney stones. Evaluation today-cystoscopy right ureteral stent removed. Plan continue to monitor kidneys, metabolic workup, 24 hour urine, follow-up in 3 months renal ultrasound prior. [facility] Medical History Kidney stones Hydronephrosis Obstruction of left ureteropelvic junction (UPJ) due to stone Hematuria Left ureteral stone Low back pain Abdominal cramping Well woman exam Upper abdominal pain Osteoarthritis of right shoulder Migraines Low back pain Renal calculi GERD (gastroesophageal reflux disease) Surgical History Hx of cystoscopy History of surgery History of hernia repair History of hysterectomy History of appendectomy Hx of endoscopy History of colonoscopy Family History Father History of colon cancer Mother History of diabetes mellitus Social History Alcohol intake: never Patient Tobacco Use Status: Never used Tobacco Sexual orientation: Straight/Heterosexual Gender identity: Female Female Reproductive History Menstrual Age of Menarche: 15 Review of Systems Const All systems reviewed & are unremarkable except as noted in HPI and below Reports no additional complaints Eyes Reports no additional complaints ENT Reports no additional complaints Card Reports no additional complaints Resp Reports no additional complaints GI Reports no additional complaints Reports as per HPI Musc Reports no additional complaints Skin/Breast Reports system reviewed and no additional complaints, except as documented Neuro Reports no additional complaints Psych Reports no additional complaints Endo Reports no additional complaints Maxwell/Lymph Reports no additional complaints Aller/Immun Reports no additional complaints Results AMB Urinalysis, Automated UA Leukoctes 0 Casie/uL Last Edit by MIKE Gillis on 04/10/24 14:23 UA Nitrite Negative Last Edit by MIKE Gillis on 04/10/24 14:23 UA Urobilinogen 0.2 mg/dL Last Edit by MIKE Gillis on 04/10/24 14:2 3 UA Protein 15 mg/dL Last Edit by MIKE Gillis on 04/10/24 14:23 UA pH 5.5 Last Edit by MIKE Gillis on 04/10/24 14:23 UA Blood 200 Ovidio/uL Last Edit by MIKE Gillis on 04/10/24 14:23 3+ Conner Carter 04/10/24 14:23 UA Specific [place] 1.025 Last Edit by MIKE Gillis on 04/10/24 14: 23 UA Ketone Positive Last Edit by MIKE Gillis on 04/10/24 14:23 5 mg/dL Conner Carter 04/10/24 14:23 UA Bilirubin 1 mg/dL Last Edit by MIKE Gillis on 04/10/24 14:23 1+ Conner Carter 04/10/24 14:23 UA Glucose 0 mg/dL Last Edit by MIKE Gillis on 04/10/24 14:23 Results Reviewed Results Reviewed: Laboratory Last Values Urine pH (Auto) 5.5 04/10/24 14:20 Specific [place] (Auto) 1.025 04/10/24 14:20 Urine Protein (Auto) 15 mg/dL 04/10/24 14:20 Glucose (UA)(Auto) 0 mg/dL 04/10/24 14:20 Urine Ketones (Auto) Positive 04/10/24 14:20 Urine Blood (Auto) 200 Ovidio/uL 04/10/24 14:20 Urine Nitrite (Auto) Negative 04/10/24 14:20 Urine Bilirubin (Auto) 1 mg/dL 04/10/24 14:20 Urine Urobilinogen (Auto) 0.2 mg/dL 04/10/24 14:20 Leukocyte Esterase (Auto) 0 Casie/uL 04/10/24 14:20 Date 04/01/24--KUB Xray fims reviewed, official reading pending. Date of Service: 03/22/23 EXAMINATION: US RETROPERITONEAL LIMITED (RENAL ONLY) CLINICAL INFORMATION: Calculus of kidney. COMPARISON: X-ray abdomen KUB 12/19/2022. CT abdomen and pelvis without contrast 12/01/2022. Ultrasound retroperitoneal limited (renal only) 06/21/2022 and 04/25/2021. X-ray abdomen KUB 08/16/2021. MRI abdomen with and without contrast 01/21/2013. TECHNIQUE: Real-time imaging of the kidneys. FINDINGS: RIGHT KIDNEY: 12.6 x 4.4 x 5.6 cm (SAG x AP x TRV). The kidney is normal in size, contour, and echogenicity. Renal cortical thickness is normal. No renal calculi or hydronephrosis. Previously seen calcifications on the prior CT scan are not identified on this exam. There is a 4 x 3 x 5 mm benign simple cyst present in the parapelvic region near the upper pole. This is benign and needs no additional imaging or follow-up. No solid renal masses. LEFT KIDNEY: 12.8 x 4.8 x 4.5 cm (SAG x AP x TRV). The kidney is normal in size, contour, and echogenicity. Renal cortical thickness is normal. Previously seen left-sided hydronephrosis on the recent CT scan has resolved presumably with interval passage of the previously seen 3 mm obstructing UPJ stone. In the lower pole on the left there is a linear echogenic focus present with twinkle artifact but no shadowing. No definite calculi or focal parenchymal lesions. No hydronephrosis. IMPRESSION: 1. Resolved left-sided hydronephrosis . 2. Tiny echogenic focus lower pole left kidney without shadowing. Date of Service: 12/01/22 EXAMINATION: CT ABDOMEN AND PELVIS WITHOUT CONTRAST? CLINICAL INFORMATION: Right flank pain? COMPARISON: 01/31/2022? TECHNIQUE: Multidetector volumetric imaging was performed from the superior aspect of the liver through the pubic symphysis. Sagittal and coronal reformatted images were obtained on the technologist's workstation.? This CT examination was performed using dose optimization techniques as appropriate, variously including the following: *Automated exposure control *Adjustment of mA and/or kV according to patient size (this includes techniques or standardized protocols for targeted exams where dose is matched to indication/reason for exam; i.e. extremities or head) *Use of iterative reconstruction technique DLP: 929 mGy-cm FINDINGS: LUNG BASES: The visualized lung bases are unremarkable.? LIVER, GALLBLADDER, AND BILIARY TREE: The liver is normal in size, shape, and attenuation. No focal hepatic lesion or biliary ductal dilatation is present. Gallbladder appears somewhat contracted.? PANCREAS: Unremarkable.? SPLEEN: Unremarkable.? ADRENAL GLANDS: Unremarkable.? KIDNEYS AND URETERS: There is mild right hydronephrosis with no ureteral calculus seen. There are a few scattered calculi in the right kidney measuring up to 3 mm. There is mild left hydronephrosis with a 3 mm calculus at the left ureteropelvic junction. Of note, the degree of hydronephrosis bilaterally appears similar to 01/31/2022. BLADDER: Mildly distended and grossly unremarkable.? GASTROINTESTINAL TRACT: No evidence of bowel obstruction or significant wall thickening. Patient appears to be status post appendectomy. No free fluid or free air is seen.? ABDOMINAL WALL: No significant hernia is appreciated.? LYMPH NODES: Normal. VASCULAR: Mild scattered atherosclerotic calcifications. PELVIC VISCERA: Unremarkable.? OSSEOUS STRUCTURES: Unremarkable.? IMPRESSION: Mild bilateral hydronephrosis with a 3 mm calculus at the left ureteropelvic junction. No right ureteral calculus identified. Of note, the degree of renal pelvic dilation bilaterally appears similar to 01/31/2022. Date of Service: 03/22/23 EXAMINATION: US RETROPERITONEAL LIMITED (RENAL ONLY) CLINICAL INFORMATION: Calculus of kidney. COMPARISON: X-ray abdomen KUB 12/19/2022. CT abdomen and pelvis without contrast 12/01/2022. Ultrasound retroperitoneal limited (renal only) 06/21/2022 and 04/25/2021. X-ray abdomen KUB 08/16/2021. MRI abdomen with and without contrast 01/21/2013. TECHNIQUE: Real-time imaging of the kidneys. FINDINGS: RIGHT KIDNEY: 12.6 x 4.4 x 5.6 cm (SAG x AP x TRV). The kidney is normal in size, contour, and echogenicity. Renal cortical thickness is normal. No renal calculi or hydronephrosis. Previously seen calcifications on the prior CT scan are not identified on this exam. There is a 4 x 3 x 5 mm benign simple cyst present in the parapelvic region near the upper pole. This is benign and needs no additional imaging or follow-up. No solid renal masses. LEFT KIDNEY: 12.8 x 4.8 x 4.5 cm (SAG x AP x TRV). The kidney is normal in size, contour, and echogenicity. Renal cortical thickness is normal. Previously seen left-sided hydronephrosis on the recent CT scan has resolved presumably with interval passage of the previously seen 3 mm obstructing UPJ stone. In the lower pole on the left there is a linear echogenic focus present with twinkle artifact but no shadowing. No definite calculi or focal parenchymal lesions. No hydronephrosis. IMPRESSION: 1. Resolved left-sided hydronephrosis . 2. Tiny echogenic focus lower pole left kidney without shadowing. Assessment & Plan Assessment & Plan (1) Bilateral kidney stones: Code(s): N20.0 - Calculus of kidney Category: Medical Plan Continue to monitor follow-up on 1 year renal ultrasound prior Orders: Orders AMB Urinalysis Automated Today Z13.9 - Encounter for screening, unspecified Medications: New pyridoxine (vitamin B6) 100 mg PO DAILY 90 tabs 3RF Patient Instructions: The patient had an opportunity to ask questions regarding treatment plan. The patient expressed understanding and agreement with the above treatment plan. The patient is aware they should contact our office by phone for worsening of their current condition or the appearance of new symptoms. Compliance is encouraged with any medications and followup testing that is ordered. It is a privilege to be allowed the opportunity to participate in the urologic care of your patient. If you have any questions or concerns regarding treatment for the above conditions please do not hesitate to contact me. The office telephone contact is [phone]. This note is constructed in part using voice recognition software. While every effort has been made to ensure accuracy jig mill operator errors may have been included. Yours sincerely, Malissa Wilson MD Coding Level of Care Code Est Pt Level 4 (50029) Diagnoses Bilateral kidney stones N20.0
== END 2024-04-10 14:40 | disposition home or self-care (01) ==
PROVIDERS: PCP Family Medicine; Visit Provider Urology
DX: Z13.9 Encounter for screening, unspecified (principal); N20.0 Calculus of kidney
CPT/HCPCS: 99214

== ENCOUNTER → 2024-04-10 13:52 | Outpatient (BNVA) | payer MEDICAID, SELFPAY | PROVIDERS: PCP Family Medicine; Visit Provider Urology | DX: N20.0 Calculus of kidney (principal) | CPT/HCPCS: 81003; 99212 ==

== ENCOUNTER 2024-05-15 16:42 | Emergency (ER) | payer MEDICAID, SELFPAY ==
[2024-05-15 16:59] VITALS: BP 148/85; PULSE 83; RESP 20; TEMP 36.2; O2SAT 98; BMI 38.6
--- NOTE | 2024-05-15 17:00 | ED_ITS ---
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 Patient reports that she is currently on meloxicam but states that is not holding the pain well enough. She states that it radiates down into her proximal right thigh, she denies any fever, chills, nausea, vomiting, dysuria. Related Data Home Medications ?Medication ?Instructions ?Recorded ?Confirmed ondansetron HCl 4 mg tablet 4 mg PO Q6H 08/26/20 04/10/24 (Zofran) cetirizine 10 mg tablet 10 mg PO DAILY 06/17/21 04/10/24 cholecalciferol (vitamin D3) 25 25 mcg PO QAM 06/17/21 04/10/24 mcg (1,000 unit) tablet fluticasone propionate 230 2 puff inhalation BID 06/17/21 04/10/24 mcg-salmeterol 21 mcg/actuation HFA inhaler (Advair HFA) montelukast 10 mg tablet 10 mg PO QPM 06/17/21 04/10/24 vitamin B complex (B 1 tab PO DAILY 11/29/22 04/10/24 Complex-Vitamin B12 tablet) rimegepant 75 mg disintegrating 75 mg PO ONCE PRN Migraine Headache 12/12/22 04/10/24 tablet (Nurtec ODT) Previous Rx's ?Medication ?Instructions ?Recorded lidocaine 5 % topical patch 1 patch topical DAILY #30 ea 06/23/23 (Lidoderm) naproxen 500 mg tablet 500 mg PO BID PRN pain #30 tabs 06/23/23 dicyclomine 20 mg tablet 20 mg PO BID #60 tabs 02/21/24 linaclotide 72 mcg capsule 72 mcg PO QAM #30 caps 02/21/24 (Linzess) pantoprazole 40 mg tablet,delayed 40 mg PO BID #60 tabs 02/21/24 release metoclopramide HCl 5 mg tablet See Rx Instructions PO QIDACHS 04/03/24 (Reglan) #150 tabs prednisone 20 mg tablet See Rx Instructions PO DAILY #4 04/03/24 tabs pyridoxine (vitamin B6) 100 mg 100 mg PO DAILY #90 tabs 04/10/24 tablet cyclobenzaprine 10 mg tablet 10 mg PO BEDTIME PRN muscle spasm 05/15/24 #7 tabs Allergies Allergy/AdvReac Type Severity Reaction Status Date / Time citalopram [From Celexa] AdvReac Mild ANXIETY Verified 05/15/24 17:01 divalproex sodium AdvReac Mild ANXIETY/JUM Verified 05/15/24 17:01 [From Depakote] PY olanzapine [From Zyprexa] AdvReac Mild ANXIETY Verified 05/15/24 17:01 paroxetine [From Paxil] AdvReac Mild ANXIETY Verified 05/15/24 17:01 Review of Systems Review of Systems Pertinent positives and negatives as stated in HPI [facility] Past Medical History Source: nursing notes reviewed Medical History Kidney stones Hydronephrosis Obstruction of left ureteropelvic junction (UPJ) due to stone Hematuria Left ureteral stone Low back pain Abdominal cramping Well woman exam Upper abdominal pain Osteoarthritis of right shoulder Migraines Low back pain Renal calculi GERD (gastroesophageal reflux disease) Surgical History Hx of cystoscopy History of surgery History of hernia repair History of hysterectomy History of appendectomy Hx of endoscopy History of colonoscopy Family History Family History Father History of colon cancer Mother History of diabetes mellitus Social History Social History Alcohol intake: never Patient Tobacco Use Status: Never used Tobacco Advance Directives: No Advance Directives Information Provided: No Sexual orientation: Straight/Heterosexual Gender identity: Female Physical Exam ED Vital Signs: Vital Signs - 24 hr 05/15/24 16:59 05/15/24 19:21 Temperature 97.2 F 98.5 F Pulse Rate 83 65 Respiratory Rate 20 16 Blood Pressure 148/85 H 121/65 Pulse Oximetry 98 97 Oxygen Delivery Method Room Air Room Air BMI result Body Mass Index 38.6 VITAL SIGNS: Reviewed. GENERAL: Well developed, well nourished, in no acute distress. HEAD: Normocephalic/atraumatic EYES: PERRLA, EOMI EARS: Ext canals without abnormality NOSE: Nares patent bilateral OROPHARYNX: no oral lesions noted, posterior pharynx clear NECK: Supple, no adenopathy LUNGS: Normal breath sounds. No adventitious sounds or accessory muscle use. SpO2<97> CARDIOVASCULAR: Regular rate and rhythm without noted murmurs ABDOMEN: Soft, non-tender, non-distended with bowel sounds. MUSCULOSKELETAL: No tenderness, deformities, or effusions noted on gross inspection. EXTREMITIES: No cyanosis, clubbing or edema. SKIN: Inspection of the skin reveals no rashes NEUROLOGIC: Alert and oriented x 4. Strength and sensation to light touch were grossly intact x 4. Course Course Course Narrative: This is a Rapid Medical Exam performed in triage by Cheryl Whittington PA-C. Full HPI, ROS and PE to be performed by primary ED provider. 53 year-old Fw/ PMHx GERD, constipation, OA presenting to the ED c/o R flank and R sided abdominal pain since last night. denies urinary sx, nausea/vomiting. pain not worse when eating PE: abdomen soft w/ R CVAT & RLQ/RUQ pain Plan: labs, UA, CT AP ordered Medical Decision Making Medical Decision Making MDM Narrative: 53-year-old female with history and clinical presentation most consistent with lumbar radiculopathy, patient also has a known history of a pinched nerve and denies any recent traumatic injury to the area or to her back. She denies any bowel or bladder issues and I do not feel that patient needs a CT scan. I reviewed the investigations that were conducted and hematologic indices are negative for leukocytosis/anemia/thrombocytopenia. Chemistry indices are negative for PAULETTE/electrolyte or liver enzyme derangements. Urinalysis is negative for UTI or hematuria. Patient provided with high-dose Tylenol as well as 10 mg of Flexeril and will be discharged with recommendations for this as well as a prescription for the Flexeril. She understands that this is the plan and is agreeable. Differential Diagnosis Differential Diagnoses: The differential diagnosis associated with the presentation includes Please see the discussion above Admission/Observation Consideration of admission/observation: Escalation of care including admission/observation considered Please see the discussion above Lab Data MDM Lab Attestation statement: I reviewed the patient's lab results. Please see the discussion above 05/15/24 17:16 05/15/24 17:16 Labs: Lab Results 05/15/24 05/15/24 Range/Units 17:16 17:20 WBC 6.9 (4.8-10.8) X10*3/uL RBC 4.31 (4.20-5.50) X10*6/uL Hgb 12.0 (12.0-16.0) g/dl Hct 37.0 (37.0-47.0) % MCV 85.8 (80.0-98.0) fL MCH 27.8 (27.0-33.0) pg MCHC 32.4 (31.0-35.0) g/dl RDW 13.4 (11.0-16.0) % Plt Count 288 (160-400) X10*3/uL MPV 8.5 L (9.4-12.3) fL Immature Gran % (Auto) 0.1 (0.0-0.4) % Neut % (Auto) 47.3 (45-73) % Lymph % (Auto) 43.7 H (20-40) % [place]rack[place] % (Auto) 6.3 (2-11) % Eos % (Auto) 2.3 (0-4) % Baso % (Auto) 0.3 (0-2) % Lymph # (Auto) 3.0 (1.2-4.9) X10*3/uL [place] # (Auto) 0.4 (0.1-1.2) X10*3/uL Eos # (Auto) 0.2 (0.0-0.4) X10*3/uL Baso # (Auto) 0.0 (0.0-0.2) X10*3/uL Abs Immat Gran (auto) 0.01 (0.00-0.03) X10*3/uL Absolute Neuts (auto) 3.3 (2.0-8.3) x10*3/uL Absolute Nucleated RBC 0.000 (0.0-0.012) X10*3/uL Nucleated RBC % (auto) 0.0 (0.0-0.2) /100WBC Sodium 144 (135-145) mmol/L Potassium 3.8 (3.3-5.1) mmol/L Chloride 109 H (96-108) mmol/L Carbon Dioxide 25 (22-29) mmol/L Anion Gap 14 (12-20) BUN 13 (9-16) mg/dL Creatinine 1.07 (0.5-1.4) mg/dL Estim Creat Clear Calc 77.4 Estimated GFR 54 Random Glucose 164 H (60-115) mg/dL Calcium 9.6 (8.4-10.2) mg/dL Magnesium 2.0 (1.6-2.6) mg/dL Total Bilirubin 0.4 (0.0-1.0) mg/dL Direct Bilirubin 0.1 (0.0-0.5) mg/dL AST 20 (5-31) U/L ALT 22 (0-31) U/L Alkaline Phosphatase 83 (39-117) U/L Total Protein 7.3 (6.5-8.0) g/dL Albumin 4.1 (3.5-5.0) g/dL Lipase 13 (8-78) U/L Urine Color Yellow Urine Appearance Clear Urine pH 5.5 (5.0-9.0) Ur Specific [place] >= 1.030 H (1.005-1.025) Urine Protein Trace (Neg-Trace) mg/dL Urine Glucose (UA) Negative (Negative) mg/dL Urine Ketones Trace (Negative) mg/dL Urine Blood Negative (Negative) Urine Nitrite Negative (Negative) Ur Leukocyte Esterase Negative (Negative) Urine Test NEGATIVE (NEGATIVE) External Record Review External record reviewed: Outpatient record, Prior outpatient labs and Prior outpatient radiology Critical Care Time Critical Care Time Critical Care Time: Yes Total Critical Care Time: 30 Attestation: I personally attest to this time spent taking care of the patient. Discharge Plan Discharge Clinical Impression: Lumbar radiculopathy, Muscle spasm Patient Disposition: Home, Self-Care Instructions: Lumbar Radiculopathy (ED), Muscle Spasm (ED), Lower Back Exercises (ED) Additional Instructions: Recommend 1000 mg of Tylenol to be taken with your meloxicam, these 2 medications together work very well. You have a prescription for muscle relaxant and it is intended to be used in the evening prior to going to sleep. Return to the ER for any worsening symptoms. Prescriptions: New cyclobenzaprine 10 mg tablet 10 mg PO BEDTIME PRN (Reason: muscle spasm) Qty: 7 0RF No Action naproxen 500 mg tablet 500 mg PO BID PRN (Reason: pain) Qty: 30 0RF lidocaine [Lidoderm] 5 % adhesive patch,medicated 1 patch topical DAILY Qty: 30 0RF Rx Instructions: leave on most painful area for up to 12 hrs ondansetron HCl [Zofran] 4 mg tablet 4 mg PO Q6H cholecalciferol (vitamin D3) 25 mcg (1,000 unit) tablet 25 mcg PO QAM Advair HFA 230-21 mcg/actuation HFA aerosol inhaler 2 puff inhalation BID montelukast 10 mg tablet 10 mg PO QPM cetirizine 10 mg tablet 10 mg PO DAILY vitamin B complex [B Complex-Vitamin B12] Tablet 1 tab PO DAILY Nurtec ODT 75 mg tablet,disintegrating 75 mg PO ONCE PRN (Reason: Migraine Headache) pyridoxine (vitamin B6) 100 mg tablet 100 mg PO DAILY Qty: 90 3RF pantoprazole 40 mg tablet,delayed release (DR/EC) 40 mg PO BID Qty: 60 6RF Linzess 72 mcg capsule 72 mcg PO QAM Qty: 30 6RF dicyclomine 20 mg tablet 20 mg PO BID Qty: 60 6RF Rx Instructions: Please decrease qty and put in bottle not in med box metoclopramide HCl [Reglan] 5 mg tablet See Rx Instructions PO QIDACHS Qty: 150 6RF Rx Instructions: 1 tab tid and 2 qhs orally 4 times a day before meal/bed; please dispense in bottle and NOT in med box!! Decreasing dose prednisone 20 mg tablet See Rx Instructions PO DAILY Qty: 4 0RF Rx Instructions: 2 tabs day 1 and 1 tab for 2 days orally daily; Referrals: Mikala Borges MD [Primary Care Provider] - Print Language: Czech
[2024-05-15 17:24] LABS: MANUAL DIFF FLAG NO
[2024-05-15 17:27] LABS: Appearance Urine Clear; Color Urine Yellow; Glucose Urine UA Negative (Negative); Leukocyte Esterase Urine Negative (Negative); Nitrite Urine Negative (Negative); PH 5.5 (5.0-9.0); Specific Gravity - Urine >= 1.030 (1.005-1.025); Urine Blood Negative (Negative); Urine Ketones Trace mg/dL (Negative); Urine Protein Trace mg/dL (Neg-Trace)
[2024-05-15 17:27] LABS: Basophils Percent Auto 0.3 % (0-2); Eosinophils Absolute Auto 0.2 X10*3/uL (0.0-0.4); Eosinophils Percent Auto 2.3 % (0-4); Imm Gran Abs Auto 0.01 X10*3/uL (0.00-0.03); Imm Gran Pct Auto 0.1 % (0.0-0.4); Lymphocytes Percent Auto 43.7 % (20-40); Mean Corpuscular HGB Conc 32.4 g/dl (31.0-35.0); Mean Corpuscular Hemoglobin 27.8 pg (27.0-33.0); Mean Corpuscular Volume 85.8 fL (80.0-98.0); Mean Platelet Volume 8.5 fL (9.4-12.3); Monocytes Absolute Auto 0.4 X10*3/uL (0.1-1.2); Monocytes Percent Auto 6.3 % (2-11); Neutrophils Absolute Auto 3.3 x10*3/uL (2.0-8.3); Neutrophils Percent Auto 47.3 % (45-73); Platelet Count 288 X10*3/uL (160-400); Red Blood Count 4.31 X10*6/uL (4.20-5.50); Red Cell Distribution Width 13.4 % (11.0-16.0); White Blood Count 6.9 X10*3/uL (4.8-10.8)
[2024-05-15 17:28] LABS: UPreg QC Valid YES; Urine Pregnancy NEGATIVE (NEGATIVE)
[2024-05-15 17:41] LABS: Alanine Aminotransferase 22 U/L (0-31); Albumin Level 4.1 g/dL (3.5-5.0); Alkaline Phosphatase 83 U/L (39-117); Anion Gap 14 (12-20); Aspartate Amino Transferase 20 U/L (5-31); Bilirubin Direct 0.1 mg/dL (0.0-0.5); Bilirubin Total 0.4 mg/dL (0.0-1.0); Blood Urea Nitrogen 13 mg/dL (9-16); Calcium 9.6 mg/dL (8.4-10.2); Carbon Dioxide 25 mmol/L (22-29); Chloride 109 mmol/L (96-108); Creatinine Clr Calc Pharmacy 77.4; Estimated Glomerular Filt Rate 54; Glucose Random 164 mg/dL (60-115); Lipase 13 U/L (8-78); Potassium 3.8 mmol/L (3.3-5.1); Sodium 144 mmol/L (135-145); Total Protein 7.3 g/dL (6.5-8.0)
[2024-05-15 19:21] VITALS: BP 121/65; PULSE 65; RESP 16; TEMP 36.9; O2SAT 97
[2024-05-15] MEDS: Acetaminophen 325 MG TABLET 975 MG PO (20:10)
[2024-05-15] MEDS: Cyclobenzaprine HCl 10 MG TABLET PO (20:10)
[2024-05-15 20:14] VITALS: BP 121/65; PULSE 65; RESP 16; TEMP 36.9; O2SAT 97
== END 2024-05-15 20:15 | disposition home or self-care (01) ==
PROVIDERS: Physician Assistant; Emergency Provider Student in an Organized Health Care Education/Training Program; PCP Family Medicine
DX: M54.16 Radiculopathy, lumbar region (principal); M62.830 Muscle spasm of back; M54.50 Low back pain, unspecified
CPT/HCPCS: 36415; 80048; 80076; 81003; 81025; 83690; 83735; 85025; 99283

== ENCOUNTER 2024-08-17 08:25 | Emergency (ER) | payer MEDICAID, SELFPAY ==
--- NOTE | ~2024-08-17 | CT_ITS ---
EXAMINATION: CT ABDOMEN AND PELVIS WITH CONTRAST CLINICAL INFORMATION: Lower abdominal pain. COMPARISON: CT abdomen/pelvis 06/23/2023. TECHNIQUE: Multidetector volumetric images were obtained from the superior aspect of the liver through the pubic symphysis following administration 85 mL of Omnipaque 350 intravenous contrast. Sagittal and coronal reformatted images were obtained on the technologist's workstation. Oral contrast: No This CT examination was performed using dose optimization techniques as appropriate, variously including the following: *Automated exposure control *Adjustment of mA and/or kV according to patient size (this includes techniques or standardized protocols for targeted exams where dose is matched to indication/reason for exam; i.e. extremities or head) *Use of iterative reconstruction technique DLP: 931 mGy-cm FINDINGS: LUNG BASES: No focal consolidation or pleural effusion. LIVER, GALLBLADDER, AND BILIARY TREE: Enlarged liver measuring 20 cm craniocaudally, otherwise normal morphology and attenuation. No focal hepatic lesion or biliary ductal dilatation is present. The gallbladder is unremarkable with no evidence of radiopaque gallstones, gallbladder wall thickening, or obvious pericholecystic inflammatory changes. PANCREAS: Unremarkable. SPLEEN: Unremarkable. ADRENAL GLANDS: Unremarkable. KIDNEYS AND URETERS: Mild right hydroureteronephrosis without a distinct obstructive calculi. 3 mm nonobstructive calculus in the upper pole of the right kidney. Punctate nonobstructive calculus in the lower pole of the right kidney. 4 mm nonobstructive calculus in the lower pole of the left kidney. Symmetric nephrograms. No perinephric fat stranding. BLADDER: Unremarkable. GASTROINTESTINAL TRACT: The stomach and the small bowel are nondilated. Appendectomy. Limited evaluation of colonic wall thickening in the descending and sigmoid colon as well as rectum due to luminal decompression. Colonic diverticulosis without significant pericolonic inflammatory changes. No evidence of bowel obstruction. ABDOMINAL WALL: No significant hernia is appreciated. LYMPH NODES: No lymphadenopathy. VASCULAR: Scattered atherosclerotic disease. Normal caliber of the abdominal aorta. PELVIC VISCERA: Hysterectomy. OSSEOUS STRUCTURES: No acute or aggressive appearing osseous findings. CT/CT abdomen pelvis w IV con IMPRESSION: 1. Mild right hydroureteronephrosis without a distinct obstructive calculi. 2. Nonobstructive bilateral renal calculi. 3. Diverticulosis but no evidence of acute diverticulitis. 4. Mild hepatomegaly. Electronically signed by: Nithya Sewell MD 08/17/2024 11:16 AM EDT
[2024-08-17 08:37] VITALS: BP 144/73; PULSE 65; RESP 16; TEMP 36.6; O2SAT 100; BMI 38.1
[2024-08-17 08:53] LABS: MANUAL DIFF FLAG NO
[2024-08-17 08:56] LABS: Basophils Percent Auto 0.7 % (0-2); Eosinophils Absolute Auto 0.2 X10*3/uL (0.0-0.4); Eosinophils Percent Auto 3.2 % (0-4); Hematocrit 37.8 % (37.0-47.0); Hemoglobin 12.2 g/dl (12.0-16.0); Imm Gran Abs Auto 0.01 X10*3/uL (0.00-0.03); Imm Gran Pct Auto 0.2 % (0.0-0.4); Lymphocytes Absolute Auto 2.6 X10*3/uL (1.2-4.9); Lymphocytes Percent Auto 43.9 % (20-40); Mean Corpuscular HGB Conc 32.3 g/dl (31.0-35.0); Mean Corpuscular Hemoglobin 27.7 pg (27.0-33.0); Mean Corpuscular Volume 85.7 fL (80.0-98.0); Mean Platelet Volume 8.6 fL (9.4-12.3); Monocytes Absolute Auto 0.4 X10*3/uL (0.1-1.2); Monocytes Percent Auto 7.4 % (2-11); Neutrophils Absolute Auto 2.6 x10*3/uL (2.0-8.3); Neutrophils Percent Auto 44.6 % (45-73); Platelet Count 284 X10*3/uL (160-400); Red Blood Count 4.41 X10*6/uL (4.20-5.50); Red Cell Distribution Width 13.4 % (11.0-16.0); White Blood Count 5.9 X10*3/uL (4.8-10.8)
[2024-08-17 09:09] LABS: Alanine Aminotransferase 20 U/L (0-31); Alkaline Phosphatase 89 U/L (39-117); Anion Gap 11 (12-20); Aspartate Amino Transferase 18 U/L (5-31); Bilirubin Total 0.3 mg/dL (0.0-1.0); Blood Urea Nitrogen 9 mg/dL (9-16); Calcium 9.3 mg/dL (8.4-10.2); Carbon Dioxide 28 mmol/L (22-29); Chloride 107 mmol/L (96-108); Creatinine Clr Calc Pharmacy 92.6; Estimated Glomerular Filt Rate > 60; Glucose Random 115 mg/dL (60-115); Potassium 3.6 mmol/L (3.3-5.1); Sodium 142 mmol/L (135-145); Total Protein 7.2 g/dL (6.5-8.0)
--- NOTE | 2024-08-17 09:33 | ED_ITS ---
HPI - Abdominal Pain General Chief Complaint: Abdominal Pain Stated Complaint: Abd pain Time Seen by Provider: 08/17/24 09:13 Source: patient and RN notes reviewed Mode of arrival: ambulatory Limitations: no limitations History of Present Illness ED Provider: Oneida Kimball PA-C HPI narrative: This is a 54-year-old female, with a past medical history of kidney stones, migraines, osteoarthritis, who presents emergency department with complaints of abdominal pain, diarrhea, nausea, and chills. Patient reports that her symptoms started this morning. Patient states that this morning she awoke with abdominal pain and multiple episodes of diarrhea. She also endorses nausea and chills. She states that she felt dizzy after having the diarrhea however states that the dizziness has since resolved. She denies any fevers, chills, chest pain, shortness of breath, current dizziness, blurred vision, bloody or black stool, bloody/black vomitus. She denies any sick contacts with similar symptoms. Denies eating any unusual foods lately. She is urinating freely without any difficulty. Denies any cough or congestion. She had a total hysterectomy, hernia repair, and appendectomy. No other complaints or concerns at this time. MD elicited complaint: abdominal pain Quality: cramping Associated symptoms: nausea, diarrhea and chills Related Data Home Medications ?Medication ?Instructions ?Recorded ?Confirmed ondansetron HCl 4 mg tablet 4 mg PO Q6H 08/26/20 04/10/24 (Zofran) cetirizine 10 mg tablet 10 mg PO DAILY 06/17/21 04/10/24 cholecalciferol (vitamin D3) 25 25 mcg PO QAM 06/17/21 04/10/24 mcg (1,000 unit) tablet fluticasone propionate 230 2 puff inhalation BID 06/17/21 04/10/24 mcg-salmeterol 21 mcg/actuation HFA inhaler (Advair HFA) montelukast 10 mg tablet 10 mg PO QPM 06/17/21 04/10/24 vitamin B complex (B 1 tab PO DAILY 11/29/22 04/10/24 Complex-Vitamin B12 tablet) rimegepant 75 mg disintegrating 75 mg PO ONCE PRN Migraine Headache 12/12/22 04/10/24 tablet (Nurtec ODT) Previous Rx's ?Medication ?Instructions ?Recorded lidocaine 5 % topical patch 1 patch topical DAILY #30 ea 06/23/23 (Lidoderm) naproxen 500 mg tablet 500 mg PO BID PRN pain #30 tabs 06/23/23 dicyclomine 20 mg tablet 20 mg PO BID #60 tabs 02/21/24 linaclotide 72 mcg capsule 72 mcg PO QAM #30 caps 02/21/24 (Linzess) pantoprazole 40 mg tablet,delayed 40 mg PO BID #60 tabs 02/21/24 release metoclopramide HCl 5 mg tablet See Rx Instructions PO QIDACHS 04/03/24 (Reglan) #150 tabs prednisone 20 mg tablet See Rx Instructions PO DAILY #4 04/03/24 tabs pyridoxine (vitamin B6) 100 mg 100 mg PO DAILY #90 tabs 04/10/24 tablet cyclobenzaprine 10 mg tablet 10 mg PO BEDTIME PRN muscle spasm 05/15/24 #7 tabs ketorolac 10 mg tablet 10 mg PO Q8H PRN pain 3 days #9 08/17/24 tabs ondansetron 4 mg disintegrating 4 mg PO Q6H PRN nausea and 08/17/24 tablet vomiting #12 tabs Allergies Allergy/AdvReac Type Severity Reaction Status Date / Time citalopram [From Celexa] AdvReac Mild ANXIETY Verified 08/17/24 08:38 divalproex sodium AdvReac Mild ANXIETY/JUM Verified 08/17/24 08:38 [From Depakote] PY olanzapine [From Zyprexa] AdvReac Mild ANXIETY Verified 08/17/24 08:38 paroxetine [From Paxil] AdvReac Mild ANXIETY Verified 08/17/24 08:38 Review of Systems Review of Systems Yes all other systems are reviewed and are negative Constitutional: Reports as per [facility] Past Medical History Attestation statement: The following information was validated with the patient. Medical History Kidney stones Hydronephrosis Obstruction of left ureteropelvic junction (UPJ) due to stone Hematuria Left ureteral stone Low back pain Abdominal cramping Well woman exam Upper abdominal pain Osteoarthritis of right shoulder Migraines Low back pain Renal calculi GERD (gastroesophageal reflux disease) Surgical History Hx of cystoscopy History of surgery History of hernia repair History of hysterectomy History of appendectomy Hx of endoscopy History of colonoscopy Family History Family History Father History of colon cancer Mother History of diabetes mellitus Social History Social History Alcohol intake: never Patient Tobacco Use Status: Never used Tobacco Smoked in Last 30 Days: No Advance Directives: No Advance Directives Information Provided: Yes Do you have a plan to hurt others: No Plan Patient : No Sexual orientation: Straight/Heterosexual Gender identity: Female Physical Exam ED Vital Signs: Vital Signs - 24 hr 08/17/24 08:37 08/17/24 11:08 08/17/24 12:21 Temperature 97.9 F 98.1 F Pulse Rate 65 61 Respiratory Rate 16 18 16 Blood Pressure 144/73 H 122/74 Pulse Oximetry 100 100 Oxygen Delivery Method Room Air Room Air 08/17/24 15:03 Temperature 98.2 F Pulse Rate 60 Respiratory Rate 20 Blood Pressure 120/72 Pulse Oximetry 100 Oxygen Delivery Method Room Air BMI result Body Mass Index 38.1 Const General: cooperative, comfortable and no acute distress Orientation/consciousness: patient oriented x3 Limitations: no limitations HENMT Head: Yes normal to inspection, Yes normocephalic and Yes atraumatic Ears: hearing grossly normal bilaterally General nose exam: Normal external nose present Face and sinus: Yes normal facial exam Mouth: Normal oral and palatal mucosa present, oropharynx normal and moist mucous membranes Throat: Yes posterior oropharynx normal Eyes General: appearance normal, both eyes and all related structures Eyelids: Yes eyelids normal Conjunctivae: conjunctivae normal Sclerae: sclerae normal Pupils: Equal, round and reactive pupils present EOM: EOMs intact bilaterally Neck Neck: Yes normal visual inspection, Yes full ROM and Yes no lymphadenopathy Lymphatic: no lymphadenopathy noted Chest Chest palpation & inspection: normal inspection of the chest Resp Effort & Inspection: normal respiratory effort and able to speak in complete sentences Auscultation: clear to auscultation bilaterally, no crackles, no rales, no rhonchi and no wheezes Cardio Rate: regular rate Rhythm: regular rhythm Heart sounds: S1 normal heart sound present and S2 normal heart sound present GI Other: Abdomen is soft, with tenderness palpation the suprapubic and right lower and left lower quadrant. Inspection: Yes normal to inspection Skin General skin exam: no rashes or lesions noted Trauma: no lacerations or abrasions Wounds: no wounds Neuro General: patient oriented x3 and moves all extremities Cranial nerves: Yes CN's II-XII intact bilaterally and Yes Equal, round and reactive pupils present Cognition (Neuro): normal cognition Gait exam (Neuro): Normal gait present Motor exam (neuro): 5/5 motor strength present throughout and Pronator motor function not present Extrem General: Yes normal to inspection Right upper extremity: normal to inspection Left upper extremity: normal to inspection Right lower extremity: normal to inspection Left lower extremity: normal to inspection Course Reevaluation(s) Reevaluation #1: Patient re-evaluated, still reporting some pain. Her nausea has resolved. Labs revealing no leukocytosis, chemistry within normal limits. Urine does not appear to be infected. CT abdomen and pelvis revealing mild right hydroureter nephrosis without a distinct obstructive calculi, nonobstructive bilateral renal calculi, diverticulosis without any evidence of diverticulitis. With mild hepatomegaly. 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 Given ongoing pain, will treat with Toradol and re-evaluate. Will continue to closely monitor Time: 12:43 Reevaluation #2: Patient feeling much better after receiving Toradol. She is eating and drinking without difficulty. Symptoms may be attributed to gastroenteritis. Discussed strict return precautions. She understands and agrees with plan. She is unable to provide stool sample today. She will follow-up with her PCP. Patient stable for discharge. Time: 14:52 Medical Decision Making Medical Decision Making MDM Narrative: This is a 54-year-old female, with a history of kidney stones, migraines, osteoarthritis, who presents emergency department with complaints of abdominal pain, diarrhea, nausea, and chills. Symptoms started this morning. On arrival, vital signs within normal limits. She is speaking in full sentences under no acute distress. She does have mild tenderness palpation in the lower abdomen and suprapubic region. She has no urinary symptoms. She expresses multiple episodes of diarrhea and nausea. As well as chills. She had an episode of dizziness after having diarrhea this morning however states that the dizziness has since resolved. She is neurologically intact. Plan: Labs UA, viral swabs, CT abdomen and pelvis Differential Diagnosis Differential Diagnoses: The differential diagnosis associated with the presentation includes Acute gastritis, gastroenteritis, diverticulitis, diverticulosis Lab Data MDM Lab Attestation statement: I reviewed the patient's lab results. No leukocytosis, stable H&H, chemistry revealing no electrolyte derangement, viral swabs negative 08/17/24 08:48 08/17/24 08:48 Labs: Lab Results 08/17/24 08/17/24 Range/Units 08:48 11:13 WBC 5.9 (4.8-10.8) X10*3/uL RBC 4.41 (4.20-5.50) X10*6/uL Hgb 12.2 (12.0-16.0) g/dl Hct 37.8 (37.0-47.0) % MCV 85.7 (80.0-98.0) fL MCH 27.7 (27.0-33.0) pg MCHC 32.3 (31.0-35.0) g/dl RDW 13.4 (11.0-16.0) % Plt Count 284 (160-400) X10*3/uL MPV 8.6 L (9.4-12.3) fL Immature Gran % (Auto) 0.2 (0.0-0.4) % Neut % (Auto) 44.6 L (45-73) % Lymph % (Auto) 43.9 H (20-40) % [place] % (Auto) 7.4 (2-11) % Eos % (Auto) 3.2 (0-4) % Baso % (Auto) 0.7 (0-2) % Lymph # (Auto) 2.6 (1.2-4.9) X10*3/uL [place] # (Auto) 0.4 (0.1-1.2) X10*3/uL Eos # (Auto) 0.2 (0.0-0.4) X10*3/uL Baso # (Auto) 0.0 (0.0-0.2) X10*3/uL Abs Immat Gran (auto) 0.01 (0.00-0.03) X10*3/uL Absolute Neuts (auto) 2.6 (2.0-8.3) x10*3/uL Absolute Nucleated RBC 0.000 (0.0-0.012) X10*3/uL Nucleated RBC % (auto) 0.0 (0.0-0.2) /100WBC Sodium 142 (135-145) mmol/L Potassium 3.6 (3.3-5.1) mmol/L Chloride 107 (96-108) mmol/L Carbon Dioxide 28 (22-29) mmol/L Anion Gap 11 L (12-20) BUN 9 (9-16) mg/dL Creatinine 0.88 (0.5-1.4) mg/dL Estim Creat Clear Calc 92.6 Estimated GFR > 60 Random Glucose 115 (60-115) mg/dL Calcium 9.3 (8.4-10.2) mg/dL Total Bilirubin 0.3 (0.0-1.0) mg/dL AST 18 (5-31) U/L ALT 20 (0-31) U/L Alkaline Phosphatase 89 (39-117) U/L Troponin I High Sens < 2.7 (<3.5-17.0) ng/L Total Protein 7.2 (6.5-8.0) g/dL Albumin 4.0 (3.5-5.0) g/dL Lipase 14 (8-78) U/L Urine Color Yellow Urine Appearance Clear Urine pH 8.0 (5.0-9.0) Ur Specific [place] 1.020 (1.005-1.025) Urine Protein Negative (Neg-Trace) mg/dL Urine Glucose (UA) Negative (Negative) mg/dL Urine Ketones Negative (Negative) mg/dL Urine Blood Negative (Negative) Urine Nitrite Negative (Negative) Ur Leukocyte Esterase Negative (Negative) Stool Occult Blood NEGATIVE (NEGATIVE) Influenza Type A (PCR) NEGATIVE (Negative) Influenza Type B (PCR) NEGATIVE (Negative) RSV RNA Qual (PCR) NEGATIVE (Negative) SARS-CoV-2 RNA (RT-PCR) NEGATIVE (Negative) Radiology Impression Discussion of test interpretation with radiology: I have reviewed the radiologist's reading. Radiologist Impression: CT/CT abdomen pelvis w IV con IMPRESSION: 1. Mild right hydroureteronephrosis without a distinct obstructive calculi. 2. Nonobstructive bilateral renal calculi. 3. Diverticulosis but no evidence of acute diverticulitis. 4. Mild hepatomegaly. Electronically signed by: Nithya Sewell MD 08/17/2024 11:16 AM EDT Dictated By: Nithya Sewell Medications Administered Discontinued Medications Generic Name Dose Route Start Last Admin Trade Name Freq PRN Reason Stop Dose Admin Sodium Chloride 1,000 mls @ 999 mls/hr 08/17/24 10:14 08/17/24 12:25 Ns IVCONT 08/17/24 11:14 Infused .Q1H1M ONE Infusion Iohexol 100 ml 08/17/24 10:45 08/17/24 10:45 Iohexol 350 Mg/Ml 100 Ml Infus..Btl IV 08/17/24 10:46 85 ml ONCE ONE Administration Ketorolac Tromethamine 30 mg 08/17/24 12:42 08/17/24 12:46 Ketorolac Tromethamine 30 Mg/Ml Vial IVPUSH 08/17/24 12:43 30 mg ONCE ONE Administration Morphine Sulfate 4 mg 08/17/24 10:13 08/17/24 11:08 Morphine Sulfate 4 Mg/Ml Cartridge IVPUSH 08/17/24 10:14 4 mg ONCE ONE Administration Protocol Ondansetron HCl 4 mg 08/17/24 10:13 08/17/24 11:08 Ondansetron Hcl 4 Mg/2 Ml Vial IVPUSH 08/17/24 10:14 4 mg ONCE ONE Administration Discharge Plan Discharge Clinical Impression: Abdominal pain, Diarrhea Patient Disposition: Home, Self-Care Instructions: Acute Diarrhea (ED), Acute Abdominal Pain (ED) Additional Instructions: You were seen in the emergency department due to abdominal pain, diarrhea. You tested negative for COVID, flu, RSV. Your blood work was reassuring. Your CT scan shows evidence of kidney stones however does not show any obstructive kidney stones. Your symptoms are likely viral. Stick to a bland diet, avoid spicy or fried foods. Take Zofran as needed for nausea and/or vomiting. You may also take Toradol as needed for pain. Do not mix this with naproxen or ibuprofen. If any new or worsening symptoms occur including but not limited to worsening abdominal pain, chest pain, shortness of breath, please seek emergent care. Prescriptions: New ondansetron 4 mg tablet,disintegrating 4 mg PO Q6H PRN (Reason: nausea and vomiting) Qty: 12 0RF ketorolac 10 mg tablet 10 mg PO Q8H PRN (Reason: pain) 3 Days Qty: 9 0RF No Action naproxen 500 mg tablet 500 mg PO BID PRN (Reason: pain) Qty: 30 0RF lidocaine [Lidoderm] 5 % adhesive patch,medicated 1 patch topical DAILY Qty: 30 0RF Rx Instructions: leave on most painful area for up to 12 hrs cyclobenzaprine 10 mg tablet 10 mg PO BEDTIME PRN (Reason: muscle spasm) Qty: 7 0RF ondansetron HCl [Zofran] 4 mg tablet 4 mg PO Q6H cholecalciferol (vitamin D3) 25 mcg (1,000 unit) tablet 25 mcg PO QAM Advair HFA 230-21 mcg/actuation HFA aerosol inhaler 2 puff inhalation BID montelukast 10 mg tablet 10 mg PO QPM cetirizine 10 mg tablet 10 mg PO DAILY vitamin B complex [B Complex-Vitamin B12] Tablet 1 tab PO DAILY Nurtec ODT 75 mg tablet,disintegrating 75 mg PO ONCE PRN (Reason: Migraine Headache) pyridoxine (vitamin B6) 100 mg tablet 100 mg PO DAILY Qty: 90 3RF pantoprazole 40 mg tablet,delayed release (DR/EC) 40 mg PO BID Qty: 60 6RF Linzess 72 mcg capsule 72 mcg PO QAM Qty: 30 6RF dicyclomine 20 mg tablet 20 mg PO BID Qty: 60 6RF Rx Instructions: Please decrease qty and put in bottle not in med box metoclopramide HCl [Reglan] 5 mg tablet See Rx Instructions PO QIDACHS Qty: 150 6RF Rx Instructions: 1 tab tid and 2 qhs orally 4 times a day before meal/bed; please dispense in bottle and NOT in med box!! Decreasing dose prednisone 20 mg tablet See Rx Instructions PO DAILY Qty: 4 0RF Rx Instructions: 2 tabs day 1 and 1 tab for 2 days orally daily; Discharge Date/Time: 08/17/24 15:11 Print Language: Tajik
[2024-08-17 10:02] LABS: Influenza A PCR NEGATIVE (Negative); Influenza B PCR NEGATIVE (Negative); Resp Syncy Virus RNA Qual PCR NEGATIVE (Negative); SARS COV2 PCR INHOUSE NEGATIVE (Negative)
[2024-08-17 10:12] LABS: Lipase 14 U/L (8-78)
--- NOTE | 2024-08-17 10:13 | ECG_ITS ---
Test Reason : DIZZINESS Blood Pressure : / mmHG Vent. Rate : 067 BPM Atrial Rate : 067 BPM P-R Int : 176 ms QRS Dur : 090 ms QT Int : 398 ms P-R-T Axes : 048 000 003 degrees QTc Int : 420 ms Normal sinus rhythm Minimal voltage criteria for LVH, may be normal variant ( R in aVL ) Borderline ECG When compared with ECG of 25-JUL-2019 20:53, Inverted T waves have replaced nonspecific T wave abnormality in Inferior leads Referred By: Oneida Kimball Electronically Signed By:Rolly Mac
[2024-08-17 10:39] LABS: Troponin-I High Sensitivity < 2.7 ng/L (<3.5-17.0)
[2024-08-17] MEDS: iohexoL 350 MG/ML 100 ML INFUS..BTL IV (10:45)
[2024-08-17 11:08] VITALS: RESP 18
[2024-08-17] MEDS: ondansetron HCL 4 MG/2 ML VIAL IVPUSH (11:08)
[2024-08-17] MEDS: Morphine Sulfate 4 MG/ML CARTRIDGE IVPUSH (11:08)
[2024-08-17] MEDS: 0.9 % Sodium Chloride 1,000 ML 999 ML IVCONT (11:08)
[2024-08-17 11:19] LABS: OBS Int Ctl Valid YES; OBS1 NEGATIVE (NEGATIVE)
[2024-08-17 11:20] LABS: Appearance Urine Clear; Color Urine Yellow; Glucose Urine UA Negative (Negative); Leukocyte Esterase Urine Negative (Negative); Nitrite Urine Negative (Negative); Urine Blood Negative (Negative); Urine Ketones Negative (Negative); Urine Protein Negative (Neg-Trace)
[2024-08-17 12:21] VITALS: BP 122/74; PULSE 61; RESP 16; TEMP 36.7; O2SAT 100
[2024-08-17] MEDS: Ketorolac Tromethamine 30 MG/ML VIAL IVPUSH (12:46)
[2024-08-17 15:03] VITALS: BP 120/72; PULSE 60; RESP 20; TEMP 36.8; O2SAT 100
== END 2024-08-17 15:11 | disposition home or self-care (01) ==
PROVIDERS: Physician Assistant Medical; Emergency Provider Emergency Medicine; PCP Family Medicine
DX: R10.30 Lower abdominal pain, unspecified (principal); R19.7 Diarrhea, unspecified; R11.2 Nausea with vomiting, unspecified; R42 Dizziness and giddiness; R94.31 Abnormal electrocardiogram [ECG] [EKG]; Z79.899 Other long term (current) drug therapy; Z03.818 Encounter for observation for suspected exposure to other biological agents ruled out
CPT/HCPCS: 0241U; 74177; 80053; 81003; 82272; 83690; 84484; 85025; 93005; 99284; 99285; J1885; J2270; J2405; Q9967

== ENCOUNTER → 2024-08-17 10:13 | Outpatient (BNV) | payer MEDICAID, SELFPAY | PROVIDERS: Emergency Provider Emergency Medicine; PCP Family Medicine; Visit Provider Internal Medicine Cardiovascular Disease | DX: R42 Dizziness and giddiness (principal) | CPT/HCPCS: 93010 ==

== ENCOUNTER 2024-09-30 21:57 | Emergency (ER) | payer MEDICAID, SELFPAY ==
[2024-09-30 22:03] VITALS: BP 173/68; PULSE 77; RESP 16; TEMP 36.8; O2SAT 99; BMI 38.4
[2024-09-30 22:17] LABS: MANUAL DIFF FLAG NO
[2024-09-30 22:18] LABS: Basophils Percent Auto 0.4 % (0-2); Eosinophils Absolute Auto 0.2 X10*3/uL (0.0-0.4); Eosinophils Percent Auto 2.5 % (0-4); Hematocrit 37.8 % (37.0-47.0); Hemoglobin 12.2 g/dl (12.0-16.0); Imm Gran Abs Auto 0.01 X10*3/uL (0.00-0.03); Imm Gran Pct Auto 0.1 % (0.0-0.4); Lymphocytes Absolute Auto 3.3 X10*3/uL (1.2-4.9); Lymphocytes Percent Auto 38.6 % (20-40); Mean Corpuscular HGB Conc 32.3 g/dl (31.0-35.0); Mean Corpuscular Hemoglobin 27.3 pg (27.0-33.0); Mean Corpuscular Volume 84.6 fL (80.0-98.0); Mean Platelet Volume 8.3 fL (9.4-12.3); Monocytes Absolute Auto 0.6 X10*3/uL (0.1-1.2); Monocytes Percent Auto 7.3 % (2-11); Neutrophils Absolute Auto 4.3 x10*3/uL (2.0-8.3); Neutrophils Percent Auto 51.1 % (45-73); Platelet Count 306 X10*3/uL (160-400); Red Blood Count 4.47 X10*6/uL (4.20-5.50); Red Cell Distribution Width 13.6 % (11.0-16.0); White Blood Count 8.5 X10*3/uL (4.8-10.8)
[2024-09-30 22:36] LABS: Albumin Level 4.3 g/dL (3.5-5.0); Alkaline Phosphatase 84 U/L (39-117); Anion Gap 12 (12-20); Aspartate Amino Transferase 29 U/L (5-31); Bilirubin Total 0.3 mg/dL (0.0-1.0); Blood Urea Nitrogen 10 mg/dL (9-16); Calcium 9.7 mg/dL (8.4-10.2); Carbon Dioxide 29 mmol/L (22-29); Chloride 105 mmol/L (96-108); Creatinine Clr Calc Pharmacy 90.9; Estimated Glomerular Filt Rate > 60; Glucose Random 104 mg/dL (60-115); Lipase 14 U/L (8-78); Potassium 3.7 mmol/L (3.3-5.1); Sodium 142 mmol/L (135-145); Total Protein 7.8 g/dL (6.5-8.0)
[2024-09-30 22:51] LABS: Alanine Aminotransferase 28 U/L (0-31)
[2024-10-01 00:09] VITALS: BP 147/88; PULSE 69; RESP 16; TEMP 36.6; O2SAT 97
[2024-10-01 01:36] VITALS: BP 101/67; PULSE 83; RESP 16; TEMP 37.6; O2SAT 96
--- NOTE | 2024-10-01 01:41 | ED_ITS ---
HPI - Abdominal Pain General Chief Complaint: Abdominal Pain Stated Complaint: Abdominal pain/Headache Time Seen by Provider: 10/01/24 01:40 Source: patient Mode of arrival: ambulatory Limitations: no limitations History of Present Illness ED Provider: HPI narrative: Patient with chronic gastritis been complaining of pain area days taking Prilosec had previous CT scan which were negative no flank pain no urinary symptoms Related Data Home Medications ?Medication ?Instructions ?Recorded ?Confirmed ondansetron HCl 4 mg tablet 4 mg PO Q6H 08/26/20 04/10/24 (Zofran) cetirizine 10 mg tablet 10 mg PO DAILY 06/17/21 04/10/24 cholecalciferol (vitamin D3) 25 25 mcg PO QAM 06/17/21 04/10/24 mcg (1,000 unit) tablet fluticasone propionate 230 2 puff inhalation BID 06/17/21 04/10/24 mcg-salmeterol 21 mcg/actuation HFA inhaler (Advair HFA) montelukast 10 mg tablet 10 mg PO QPM 06/17/21 04/10/24 vitamin B complex (B 1 tab PO DAILY 11/29/22 04/10/24 Complex-Vitamin B12 tablet) rimegepant 75 mg disintegrating 75 mg PO ONCE PRN Migraine Headache 12/12/22 04/10/24 tablet (Nurtec ODT) Previous Rx's ?Medication ?Instructions ?Recorded lidocaine 5 % topical patch 1 patch topical DAILY #30 ea 06/23/23 (Lidoderm) naproxen 500 mg tablet 500 mg PO BID PRN pain #30 tabs 06/23/23 dicyclomine 20 mg tablet 20 mg PO BID #60 tabs 02/21/24 linaclotide 72 mcg capsule 72 mcg PO QAM #30 caps 02/21/24 (Linzess) pantoprazole 40 mg tablet,delayed 40 mg PO BID #60 tabs 02/21/24 release metoclopramide HCl 5 mg tablet See Rx Instructions PO QIDACHS 04/03/24 (Reglan) #150 tabs prednisone 20 mg tablet See Rx Instructions PO DAILY #4 04/03/24 tabs pyridoxine (vitamin B6) 100 mg 100 mg PO DAILY #90 tabs 04/10/24 tablet cyclobenzaprine 10 mg tablet 10 mg PO BEDTIME PRN muscle spasm 05/15/24 #7 tabs ketorolac 10 mg tablet 10 mg PO Q8H PRN pain 3 days #9 08/17/24 tabs ondansetron 4 mg disintegrating 4 mg PO Q6H PRN nausea and 08/17/24 tablet vomiting #12 tabs sucralfate 1 gram tablet 1 g PO TID #90 tabs 10/01/24 Allergies Allergy/AdvReac Type Severity Reaction Status Date / Time citalopram [From Celexa] AdvReac Mild ANXIETY Verified 09/30/24 22:06 divalproex sodium AdvReac Mild ANXIETY/JUM Verified 09/30/24 22:06 [From Depakote] PY olanzapine [From Zyprexa] AdvReac Mild ANXIETY Verified 09/30/24 22:06 paroxetine [From Paxil] AdvReac Mild ANXIETY Verified 09/30/24 22:06 Review of Systems Review of Systems Yes all other systems are reviewed and are negative PMFSH Past Medical History Medical History Kidney stones Hydronephrosis Obstruction of left ureteropelvic junction (UPJ) due to stone Hematuria Left ureteral stone Low back pain Abdominal cramping Well woman exam Upper abdominal pain Osteoarthritis of right shoulder Migraines Low back pain Renal calculi GERD (gastroesophageal reflux disease) Surgical History Hx of cystoscopy History of surgery History of hernia repair History of hysterectomy History of appendectomy Hx of endoscopy History of colonoscopy Family History Family History Father History of colon cancer Mother History of diabetes mellitus Social History Social History Alcohol intake: never Patient Tobacco Use Status: Never used Tobacco Smoked in Last 30 Days: No Use of substances other than those prescribed or required for medical reasons: No Advance Directives: No Do you have a plan to hurt others: No Plan Sexual orientation: Straight/Heterosexual Gender identity: Female Physical Exam ED Vital Signs: Vital Signs - 24 hr 09/30/24 22:03 10/01/24 00:09 10/01/24 01:36 Temperature 98.2 F 97.9 F 99.7 F Pulse Rate 77 69 83 Respiratory Rate 16 16 16 Blood Pressure 173/68 H 147/88 H 101/67 Pulse Oximetry 99 97 96 Oxygen Delivery Method Room Air Room Air Room Air BMI result Body Mass Index 38.4 Appearance: Alert. Oriented X3. No acute distress. Eyes: No pallor or icterus ENT: Pharynx normal. Oral Mucosa moist Neck: Normal inspection. Neck supple. CVS: Normal heart rate and rhythm. Pulses normal. Respiratory: No respiratory distress. Equal air entry bilateral, no wheezing/rales/rhonchi Abdomen: Soft and nontender. Bowel sounds are present, no mass palpable, no CVA tenderness Skin: Skin warm and dry. Normal skin color. Normal skin turgor. Extremities: No lower extremity edema. No calf tenderness Neuro: Oriented X 3. No motor deficit. Medical Decision Making Lab Data 09/30/24 22:12 09/30/24 22:12 Labs: Lab Results 09/30/24 Range/Units 22:12 WBC 8.5 (4.8-10.8) X10*3/uL RBC 4.47 (4.20-5.50) X10*6/uL Hgb 12.2 (12.0-16.0) g/dl Hct 37.8 (37.0-47.0) % MCV 84.6 (80.0-98.0) fL MCH 27.3 (27.0-33.0) pg MCHC 32.3 (31.0-35.0) g/dl RDW 13.6 (11.0-16.0) % Plt Count 306 (160-400) X10*3/uL MPV 8.3 L (9.4-12.3) fL Immature Gran % (Auto) 0.1 (0.0-0.4) % Neut % (Auto) 51.1 (45-73) % Lymph % (Auto) 38.6 (20-40) % [place] % (Auto) 7.3 (2-11) % Eos % (Auto) 2.5 (0-4) % Baso % (Auto) 0.4 (0-2) % Lymph # (Auto) 3.3 (1.2-4.9) X10*3/uL [place] # (Auto) 0.6 (0.1-1.2) X10*3/uL Eos # (Auto) 0.2 (0.0-0.4) X10*3/uL Baso # (Auto) 0.0 (0.0-0.2) X10*3/uL Abs Immat Gran (auto) 0.01 (0.00-0.03) X10*3/uL Absolute Neuts (auto) 4.3 (2.0-8.3) x10*3/uL Absolute Nucleated RBC 0.000 (0.0-0.012) X10*3/uL Nucleated RBC % (auto) 0.0 (0.0-0.2) /100WBC Sodium 142 (135-145) mmol/L Potassium 3.7 (3.3-5.1) mmol/L Chloride 105 (96-108) mmol/L Carbon Dioxide 29 (22-29) mmol/L Anion Gap 12 (12-20) BUN 10 (9-16) mg/dL Creatinine 0.90 (0.5-1.4) mg/dL Estim Creat Clear Calc 90.9 Estimated GFR > 60 Random Glucose 104 (60-115) mg/dL Calcium 9.7 (8.4-10.2) mg/dL Total Bilirubin 0.3 (0.0-1.0) mg/dL AST 29 (5-31) U/L ALT 28 (0-31) U/L Alkaline Phosphatase 84 (39-117) U/L Total Protein 7.8 (6.5-8.0) g/dL Albumin 4.3 (3.5-5.0) g/dL Lipase 14 (8-78) U/L Medications Administered Discontinued Medications Generic Name Dose Route Start Last Admin Trade Name Freq PRN Reason Stop Dose Admin Al Hydroxide/Mg Hydroxide 30 ml 10/01/24 01:42 10/01/24 01:59 Magnesium Hydrox/Alum Hydrox 30 Ml Oral.Susp PO 10/01/24 01:43 30 ml ONCE ONE Administration Lidocaine HCl 15 ml 10/01/24 01:42 10/01/24 01:59 Lidocaine Hcl Viscous 2 % 15 Ml Solution MUCOUS MEM 10/01/24 01:43 15 ml ONCE ONE Administration Ondansetron HCl 4 mg 10/01/24 01:46 10/01/24 01:59 Ondansetron Odt 4 Mg Tab.Giovani FOUNTAIN 10/01/24 01:47 4 mg ONCE ONE Administration Discharge Plan Discharge Clinical Impression: Chronic gastritis Patient Disposition: Home, Self-Care Instructions: Gastritis (ED) Additional Instructions: Continue take your Prilosec Linzess and dissection Start taking Sucralfate as prescribed Follow up with your used building materials yard worker Prescriptions: New sucralfate 1 gram tablet 1 g PO TID Qty: 90 0RF No Action naproxen 500 mg tablet 500 mg PO BID PRN (Reason: pain) Qty: 30 0RF lidocaine [Lidoderm] 5 % adhesive patch,medicated 1 patch topical DAILY Qty: 30 0RF Rx Instructions: leave on most painful area for up to 12 hrs cyclobenzaprine 10 mg tablet 10 mg PO BEDTIME PRN (Reason: muscle spasm) Qty: 7 0RF ondansetron 4 mg tablet,disintegrating 4 mg PO Q6H PRN (Reason: nausea and vomiting) Qty: 12 0RF ketorolac 10 mg tablet 10 mg PO Q8H PRN (Reason: pain) 3 Days Qty: 9 0RF ondansetron HCl [Zofran] 4 mg tablet 4 mg PO Q6H cholecalciferol (vitamin D3) 25 mcg (1,000 unit) tablet 25 mcg PO QAM Advair HFA 230-21 mcg/actuation HFA aerosol inhaler 2 puff inhalation BID montelukast 10 mg tablet 10 mg PO QPM cetirizine 10 mg tablet 10 mg PO DAILY vitamin B complex [B Complex-Vitamin B12] Tablet 1 tab PO DAILY Nurtec ODT 75 mg tablet,disintegrating 75 mg PO ONCE PRN (Reason: Migraine Headache) pyridoxine (vitamin B6) 100 mg tablet 100 mg PO DAILY Qty: 90 3RF pantoprazole 40 mg tablet,delayed release (DR/EC) 40 mg PO BID Qty: 60 6RF Linzess 72 mcg capsule 72 mcg PO QAM Qty: 30 6RF dicyclomine 20 mg tablet 20 mg PO BID Qty: 60 6RF Rx Instructions: Please decrease qty and put in bottle not in med box metoclopramide HCl [Reglan] 5 mg tablet See Rx Instructions PO QIDACHS Qty: 150 6RF Rx Instructions: 1 tab tid and 2 qhs orally 4 times a day before meal/bed; please dispense in bottle and NOT in med box!! Decreasing dose prednisone 20 mg tablet See Rx Instructions PO DAILY Qty: 4 0RF Rx Instructions: 2 tabs day 1 and 1 tab for 2 days orally daily; Interventions: ED Discharge Assessment Last Done: 10/01/24 03:27 Discharge Date/Time: 10/01/24 03:27 Print Language: Slovenian
[2024-10-01] MEDS: Lidocaine HCl Viscous 2 % 15 ML SOLUTION MUCOUS MEM (01:59)
[2024-10-01] MEDS: Magnesium Hydrox/Alum Hydrox 30 ML ORAL.SUSP PO (01:59)
[2024-10-01] MEDS: Ondansetron ODT 4 MG TAB.RAPDIS TRANSLINGU (01:59)
[2024-10-01 03:08] VITALS: BP 116/68; PULSE 78; RESP 16; TEMP 36.8; O2SAT 97
[2024-10-01 03:25] VITALS: BP 116/68; PULSE 78; RESP 16; TEMP 36.8; O2SAT 97
[2024-10-01 03:27] VITALS: BP 116/68; PULSE 78; RESP 16; TEMP 36.8; O2SAT 97
== END 2024-10-01 03:27 | disposition home or self-care (01) ==
PROVIDERS: Emergency Provider Internal Medicine; PCP Family Medicine
DX: K29.70 Gastritis, unspecified, without bleeding (principal); R51.9 Headache, unspecified; Z79.899 Other long term (current) drug therapy
CPT/HCPCS: 36415; 80053; 83690; 85025; 99283; 99284

== ENCOUNTER 2024-11-24 11:51 | Outpatient (REF) | payer MEDICAID, SELFPAY ==
--- NOTE | ~2024-11-24 | XR_ITS ---
EXAMINATION: XR CHEST CLINICAL INFORMATION: 3 week h/o productive cough, fevers COMPARISON: October 26, 2023 TECHNIQUE: 2 views of the chest were obtained. FINDINGS: Pulmonary reticular pattern. Linear opacities in the right lower hemithorax. No gross pleural effusion or pneumothorax. No hyperinflation. Cardiomediastinal silhouette is normal in size. The osseous structures are intact. XR/XR chest 2V IMPRESSION: Concerning acute small airway inflammatory disease in the correct clinical settings. Electronically signed by: Orlin Vieira MD 11/24/2024 12:52 PM MADY
--- OUTSIDE RECORDS SUMMARY | 2024-11-24 16:41 | XMS_ITS | Encounter Summary ---
Author Organization [facility] Address [address] [place] [address] [address] [place] [address] Care Team Providers Care Cooperative Education Coordinator Name Role Phone Mikala Borges MD Primary Care Provider [phone] Sherrie Etienne RN Unavailable [phone] Reason for Referral * Consultation (Routine) - Authorized Specialty Diagnoses / Procedures Referred By Contac t Referred To Contact Orthopaedic Surgery Diagnoses Chronic bilateral low back pain with right-sided sciatica Bulging lumbar disc Mikala Borges MD [address] [place] [address] Phone: tel: fax: [facility] [address] [place] [address] [place] [address] Phone: tel: fax: Referral ID Status Reason Start Date Expiration Date Visits Requested Visits Authorized [id number] Authorized Specialty Services Required 04/09/2024 04/09/2025 10 10 Encounter Details Date Type Department Care Team (Late st Contact Info) Description 04/03/2024 Orders Only [facility] [address] [place], [place] [phone] Mikala Borges MD [address] [place], [place] [phone] Chronic bilateral low back pain with right-sided sciatica (Primary Dx); Bulging lumbar disc Social History Tobacco Use Types Packs/Day Years Used Date Smoking Tobacco: Never Passive Smoke Exposure: Never Smokeless Tobacco: Never Alcohol Use Standard Drinks/Week Comments Never 0 (1 standard drink = 0.6 oz pur e alcohol) Depression Answer Date Recorded Patient Health Questionnaire-9 Score 0 01/22/2024 Patient Health Questionnaire-9 Score 0 01/22/2024 Last PHQ-9: Questionnaire Data Not on file 0 01/22/2024 Housing Stability Answer Date Recorded What is your housing situation today? I have jeffy patel 01/22/[address] you li ve. Do you have problems with any of the following? None of the above 01/22/2024 Food Insecurity Answer Date Recorded Within the past 12 months, y ou worried that your food would run out before you got money to buy more: Never True 01/22/2024 Within the past 12 months,th e food you bought just didn't last and you didn't have enough money to get more: Never True Transportation Answer Date Recorded In the past 12 months, has l ack of transportation kept you from medical appts, meetings, work or from getting things needed for daily living? No 01/15/2024 Utilities Answer Date Recorded In the past 12 months, has t he electric, gas, oil or water company threatened to shut off services in your home? No 01/15/2024 Depression Answer Date Recorded Patient Health Questionnaire-2 Score 0 01/22/2024 Comments Unknown Sex and Gender Information Value Date Recorded Sex Assigned at Female 08/28/2022 10:16 AM EDT Legal Sex Female 10:16 AM EDT Gender Identity Female 08/28/2022 10:16 AM EDT Sexual Orientation Straight 08/28/2022 10 :16 AM EDT documented as of this encounter Plan of Treatment Upcoming Encounters Date Type Department Care Team (Late st Contact Info) Description 12/17/2024 9:45 AM EST Office Visit [facility] [address] [place] [address] Mikala Borges MD [address] [place] [address] Scheduled Referrals Name Type Priority Associated Diagnoses Order Schedule Referral to Orthopaedic Surgery Outpatient Referral Routine Chronic bilateral low back pain with right-sided sciatica Bulging lumbar disc Expected: 04/03/2024 (Approximate), Expires: 04/03/2025 documented as of this encounter Procedures Procedure Name Priority Date/Time Associated Diagnosis Comments XR KUB AND UPRIGHT 2 VIEWS Routine 04/02/2024 8:29 AM EDT documented in this encounter Results * XR KUB and Upright 2 Views (04/02/2024 8:29 AM EDT) Anatomical Region Laterality Modality Radiographic Winnie ging 04/02/2024 8:29 AM EDT Narrative 04/15/2024 3:36 PM EDT ? [facility] [place] ?[address] ?[place] [address] ?XRay Report ? Signed ? Patient: LowellCarmelina Bro ?MR#: [id number] ?? [id number] ? : 1970 ?Acct:[id number] ? Age/Sex: 53 / F ?ADM Date: 04/02/24 ? Loc: HO.XRAY ? Attending Dr: Malissa Wilson MD ? Ordering Physician: Malissa Wilson MD ?? Date of Service: 04/02/24 ?? Procedure(s): XR KUB ?? Accession Number(s): [id number] ? cc: Malissa Wilson MD; Mikala Borges MD ? EXAMINATION: ?? XR ABDOMEN KUB ? CLINICAL INDICATION: ?? Personal history of urinary tract calculi. ? COMPARISON: ?? CT 06/23/2023 ? TECHNIQUE: ?? AP view of the abdomen. ? FINDINGS: ?? The bowel gas pattern is normal with no evidence of ileus or ?? obstruction. No renal calculi are seen and the small 3 mm maximal size ?? calculi seen on most recent CT scan from 06/23/2023 are not appreciated ?? on the current study. No unusual soft tissue calcifications are noted. ?? The bones are unremarkable. ? XR/XR KUB ?? IMPRESSION: ?? No renal calculi are seen. ? Dictated By: ?Ramses Real MD ? Signed By: ?<Electronically signed by Ramses Real MD in OV> ? 04/15/24 1532 ? DD/ 8 ? TD/TT: ? Clutch Inspector: SS ? Procedure Note Donotuseinterpreter, Image - 04/15/2024 [facility] [address] [place] [address] XRay Report Signed Patient: Carmelina Etienne EMR#: [id number] : 1970Acct:[id number] Age/Sex: 53 / FADM Date: 04/02/24 Loc: HO.XRAY Attending Dr: Malissa Wilson MD Ordering Physician: Malissa Wilson MD Date of Service: 04/02/24 Procedure(s): XR KUB Accession Number(s): [id number] cc: Malissa Wilson MD; Mikala Borges MD EXAMINATION: XR ABDOMEN KUB CLINICAL INDICATION: Personal history of urinary tract calculi. COMPARISON: CT 06/23/2023 TECHNIQUE: AP view of the abdomen. FINDINGS: The bowel gas pattern is normal with no evidence of ileus or obstruction. No renal calculi are seen and the small 3 mm maximal size calculi seen on most recent CT scan from 06/23/2023 are not appreciated on the current study. No unusual soft tissue calcifications are noted. The bones are unremarkable. XR/XR KUB IMPRESSION: No renal calculi are seen. Dictated By: Ramses Real MD Signed By: <Electronically signed by Ramses Real MD in OV> 04/15/24 1532 DD/ 0829 TD/TT: Clutch Inspector: SS [facility] External Provider IMG XR PROCEDURES Final Result documented in this encounter Visit Diagnoses Diagnosis Chronic bilateral low back pain with right-sided sciatica- Primary Bulging lumbar disc documented in this encounter Additional Health Concerns Assessment Noted Time PHQ-9 Depression Total Score: 0 01/22/20 24 12:57 PM EDT documented as of this encounter Care Teams Cooperative Education Coordinator Relationship Specialty Start Date End Date Mikala Borges MD [address] [place] [address] PCP - General Family Medicine 10/29/18 Sherrie Etienne RN [address] [place] [id number] Senior Graphic DesignerWelder Production Line Arc 10/03/24 documented as of this encounter
--- OUTSIDE RECORDS SUMMARY | 2024-11-24 16:41 | XMS_ITS | Clinical Summary ---
Author Organization [facility] it[facility] Address [address] [place] [address] Care Team Providers Care Homoeopath Name Role Phone Unavailable Primary Care Provider Unavailabl e Social History Tobacco Use Types Packs/Day Years Used Date Smoking Tobacco: Never Assessed Sex and Gender Information Value Date Recorded Sex Assigned at Not on file Gender Identity Not on file Sexual Orientation Not on file Plan of Treatment Health Maintenance Due Date Last Done Comments Breast Cancer Screening 1970 DTaP,Tdap,and Td Vaccines (1 - Tdap) 1991 Hepatitis B Vaccines (1 of 3 - 19+ 3-dose series) 1991 Cervical Cancer Screening: P ap Smear 1993 Zoster Vaccines (1 of 2) 2022 COVID-19 Vaccine (1 - 2023-2 5 season) 2024 Influenza Vaccine (#1) 2024 HIB Vaccines Aged Out No longer eligi ble based on patient's age to complete this topic HPV Vaccines Aged Out No longer eligi ble based on patient's age to complete this topic Hepatitis A Vaccines Aged Out No long er eligible based on patient's age to complete this topic IPV Vaccines Aged Out No longer eligi ble based on patient's age to complete this topic MMR Vaccines Aged Out No longer eligi ble based on patient's age to complete this topic Meningococcal ACWY Vaccine Aged Out N o longer eligible based on patient's age to complete this topic Pneumococcal Vaccine: Pediat rics (0 to 5 Years) and At-Risk Patients (6 to 64 Years) Aged Out No longer eligible b ased on patient's age to complete this topic RSV Immunization Patients Un josue 20 months Aged Out No longer eligible b ased on patient's age to complete this topic Varicella Vaccines Aged Out No longer eligible based on patient's age to complete this topic
--- OUTSIDE RECORDS SUMMARY | 2024-11-24 16:41 | XMS_ITS | Encounter Summary ---
Author Organization [facility] [employer] Address [address] [place] [address] [address] [place] [address] Care Team Providers Care Apprenticeship Representative Name Role Phone Mikala Borges MD Primary Care Provider [phone] Sherrie Etienne RN Unavailable [phone] Reason for Visit * Reason Onset Date Comments Appointment Request 07/13/2023 Encounter Details Date Type Department Care Team ([facility] Contact Info) Description 07/13/2023 Telephone [facility] [address] [place], [place] [phone] Mikala Borges MD [address] [place], [place] [phone] Appointment Request Social History Tobacco Use Types Packs/Day Years Used Date Smoking Tobacco: Never Passive Smoke Exposure: Never Smokeless Tobacco: Never Alcohol Use Standard Drinks/Week Comments Never 0 (1 standard drink = 0.6 oz pur e alcohol) Depression Answer Date Recorded Patient Health Questionnaire-2 Score 0 10/17/2022 Comments Unknown Sex and Gender Information Value Date Recorded Sex Assigned at Female 08/28/2022 10:16 AM EDT Legal Sex Female 10:16 AM EDT Gender Identity Female 08/28/2022 10:16 AM EDT Sexual Orientation Straight 08/28/2022 10 :16 AM EDT documented as of this encounter Miscellaneous Notes * Telephone Encounter - Alisha Daugherty - 07/13/2023 9:51 AM EDT Tc from pt requesting to change F/U appt on 07/30/23 to a physical . documented in this encounter Plan of Treatment Upcoming Encounters Date Type Department Care Team (Late st Contact Info) Description 12/17/2024 9:45 AM EST Office Visit [facility] [address] [place] [address] Mikala Borges MD [address] [place] [address] documented as of this encounter Visit Diagnoses Not on filedocumented in this encounter Care Teams Apprenticeship Representative Relationship Specialty Start Date End Date Mikala Borges MD [address] [place] [address] PCP - General Family Medicine 10/29/18 Sherrie Etienne, ALBERTO [address] [place] [id number] Machine Cage MakerAppraisal Analyst 10/03/24 documented as of this encounter
--- OUTSIDE RECORDS SUMMARY | 2024-11-24 16:41 | XMS_ITS | Encounter Summary ---
Author Organization [facility] Address [address] [facility] [address]t [place] [address] Care Team Providers Care Mother Repairer Name Role Phone Mikala Borges MD Primary Care Provider [phone] Sherrie Etienne RN Unavailable [phone] Reason for Visit * Reason Comments Med Refill Encounter Details Date Type Department Care Team ([facility] st Contact Info) Description 01/21/2024 Refill [facility] [address] [place], [place] [phone] Mikala Borges MD [address] [place], [place] [phone] Other insomnia Social History Tobacco Use Types Packs/Day Years [...] Description 12/17/2024 9:45 AM EST Office Visit [facility] [address] [place] [phone] Mikala Borges MD [address] [place] [address] documented as of this encounter Visit Diagnoses Diagnosis Other insomnia documented in this encounter Care Teams Mother Repairer Relationship Specialty Start Date End Date Mikala Borges MD [address] [place] [address] PCP - General Family Medicine 10/29/18 Sherrie Etienne RN [address] [place] [phone] Network Program ManagerPrecision Optical Goods Worker 10/03/24 documented as of this encounter
--- OUTSIDE RECORDS SUMMARY | 2024-11-24 16:41 | XMS_ITS | Encounter Summary ---
Author Organization [facility] Address [address] [facility] 7t [place] [address] Care Team Providers Care Vp Of Global Marketing Name Role Phone Mikala Borges MD Primary Care Provider [phone] Sherrie Etienne RN Unavailable [phone] Reason for Referral * Imaging (Routine) - Closed Specialty Diagnoses / Procedures Referred By Contac t Referred To Contact Radiology Diagnoses Chronic bilateral low back pain without sciatica Procedures MR Lumbar Spine w/o Contrast Mikala Borges MD [address] [place] [address] Phone: tel: fax: [address] Phone: tel: fax: Referral ID Status Reason Start Date Expiration Date Visits Re quested Visits Authorized [id number] Closed 02/05/2024 02/04/2025 1 1 Encounter Details Date Type Department Care Team (Late st Contact Info) Description 02/05/2024 Orders Only [facility] MEDICINE [address] [place], [place] [phone] Mikala Borges MD [address] [place] [address] [phone] Chronic bilateral low back pain without sciatica (Primary Dx) Social History Tobacco Use Types Packs/Day Years [...] Description 12/17/2024 9:45 AM EST Office Visit [facility] MEDICINE [address] [place] [address] Mikala Borges MD [address] [place] [address] documented as of this encounter Procedures Procedure Name Priority Date/Time Associated Diagnosis Comments MR LUMBAR SPINE WO CONTRAST Routine 03/05/2024 10:14 AM EDT Chronic bilateral low back pain without sciatica documented in this encounter Results * MR Lumbar Spine w/o Contrast (03/05/2024 10:14 AM EDT) Anatomical Region Laterality Modality Spine, L-spine Magnetic Resonan ce 03/05/2024 10:1 4 AM EDT Narrative 03/25/2024 9:26 AM EDT ? [facility] ?[address] ?[place] [address] ? Magnetic Resonance Report ? Signed ? Patient: Lowell,Carmelina E ?MR#: [id number] ?? [id number] ? : 1970 ?Acct:[id number] ? Age/Sex: 53 / F ?ADM Date: 03/05/24 ? Loc: HO.MRI ? Attending Dr: Mikala Borges MD ? Ordering Physician: Mikala Borges MD ?? Date of Service: 03/05/24 ?? Procedure(s): MR lumbar spine wo con ?? Accession Number(s): [id number] ? cc: Mikala Borges MD ? EXAMINATION: ?? MR LUMBAR SPINE WITHOUT CONTRAST ? CLINICAL INFORMATION: ?? Chronic low back pain. Right lower extremity pain. ? COMPARISON: ?? CT abdomen and pelvis 06/23/2023. ? TECHNIQUE: ?? MRI of the lumbar spine was obtained using routine sequences without ?? contrast. ? FINDINGS: ?? Alignment is normal. Vertebral body heights are preserved. No acute ?? bone marrow signal changes. There is disc desiccation at L5-S1 without ?? substantial loss of intervertebral disc height. ? The tip of the conus medullaris is located at L1. No mass effect on the ?? conus. Visualized distal cord signal intensity is normal. ? At L1-L2, L2-L3, L3-L4, and L4-L5 the annular contours are normal. No ?? canal or neuroforaminal compromise at these levels. ? At L5-S1 there is a bulging disc. Bilateral facet degenerative change. ?? No canal stenosis. Partial effacement of the perineural fat with mild ?? mass effect on both L5 foraminal nerve roots, greater on the right. ? Limited visualization of the retroperitoneal anatomy reveals no ?? abnormal finding. Psoas and paraspinal muscle groups are symmetric. ? MR/MR lumbar spine wo con ?? IMPRESSION: ?? There is a bulging disc in conjunction with facet degenerative change ?? at L5-S1 causing mild mass effect on both L5 foraminal nerve roots, ?? greater on the right. Otherwise no substantial mass effect on the ?? traversing or foraminal nerve roots elsewhere within the lumbar spine. ?? No canal stenosis. ? Dictated By: ?Dilip Booth MD ? Signed By: ?<Electronically signed by Dilip Booth MD in OV> ? 03/25/24921 ? DD/ 1014 ? TD/TT: ? Computer System Technician: ? Procedure Note Donotuseinterpreter, Image - 03/25/2024 [place] [address] Magnetic Resonance Report Signed Patient: Carmelina Etienne EMR#: [id number] : 1970Acct:[id number] Age/Sex: 53 / FADM Date: 03/05/24 Loc: HO.MRI Attending Dr: Mikala Borges MD Ordering Physician: Mikala Borges MD Date of Service: 03/05/24 Procedure(s): MR lumbar spine wo con Accession Number(s): [id number] cc: Mikala Borges MD EXAMINATION: MR LUMBAR SPINE WITHOUT CONTRAST CLINICAL INFORMATION: Chronic low back pain. Right lower extremity pain. COMPARISON: CT abdomen and pelvis 06/23/2023. TECHNIQUE: MRI of the lumbar spine was obtained using routine sequences without contrast. FINDINGS: Alignment is normal. Vertebral body heights are preserved. No acute bone marrow signal changes. There is disc desiccation at L5-S1 without substantial loss of intervertebral disc height. The tip of the conus medullaris is located at L1. No mass effect on the conus. Visualized distal cord signal intensity is normal. At L1-L2, L2-L3, L3-L4, and L4-L5 the annular contours are normal. No canal or neuroforaminal compromise at these levels. At L5-S1 there is a bulging disc. Bilateral facet degenerative change. No canal stenosis. Partial effacement of the perineural fat with mild mass effect on both L5 foraminal nerve roots, greater on the right. Limited visualization of the retroperitoneal anatomy reveals no abnormal finding. Psoas and paraspinal muscle groups are symmetric. MR/MR lumbar spine wo con IMPRESSION: There is a bulging disc in conjunction with facet degenerative change at L5-S1 causing mild mass effect on both L5 foraminal nerve roots, greater on the right. Otherwise no substantial mass effect on the traversing or foraminal nerve roots elsewhere within the lumbar spine. No canal stenosis. Dictated By: Dilip Booth MD Signed By: <Electronically signed by Dilip Booth MD in OV> 03/25/24 0922 DD/ 1014 TD/TT: Computer System Technician: Mikala Borges MD IMG MRI PROCEDURES Edited Result - Final documented in this encounter Visit Diagnoses Diagnosis Chronic bilateral low back pain without sciatica- Primary documented in this encounter Additional Health Concerns Assessment Noted Time PHQ-9 Depression Total Score: 0 01/22/20 24 12:57 PM EDT documented as of this encounter Care Teams Vp Of Global Marketing Relationship Specialty Start Date End Date Mikala Borges MD [address] [place] [address] PCP - General Family Medicine 10/29/18 Sherrie Etienne, ALBERTO [address] [place] [phone] Railroad Maintenance ClerkHealth Safety Coordinator 10/03/24 documented as of this encounter
--- OUTSIDE RECORDS SUMMARY | 2024-11-24 16:41 | XMS_ITS | Encounter Summary ---
Author Organization [facility] Address [address] [place] [address] 7t [place] [address] Care Team Providers Care Investigation Manager Name Role Phone Mikala Borges MD Primary Care Provider [phone] Sherrie Etienne RN Unavailable [phone] Encounter Details Date Type Department Care Team (Latest Contact Info) Description 09/09/2021 Abstract [facility] CONVERSIONS Dental, Provider, DDS Social History Tobacco Use Types Packs/Day Years Used Date Smoking Tobacco: Never Assessed Comments Unknown Sex and Gender Information Value [...] Description 12/17/2024 9:45 AM EST Office Visit [facility] MEDICINE [address] [place] [address] Mikala Borges MD [address] [place] [address] documented as of this encounter Visit Diagnoses Not on filedocumented in this encounter Care Teams Investigation Manager Relationship Specialty Start Date End Date Mikala Borges MD [address] [place] [address] PCP - General Family Medicine 10/29/18 Sherrie Etienne, ALBERTO [address] [place] [address] [place] [address] Glass SanderVarnisher Apprentice 10/03/24 documented as of this encounter
--- OUTSIDE RECORDS SUMMARY | 2024-11-24 16:41 | XMS_ITS | Encounter Summary ---
Author Organization [employer] Address [address] 7t [place] [address] Care Team Providers Care Line Repairer Tower Name Role Phone Mikala Borges MD Primary Care Provider [phone] Sherrie Etienne RN Unavailable [phone] Encounter Details Date Type Department Care Team ([facility] Contact Info) Description 08/03/2023 Abstract [facility] MEDICINE [address] [place], [place] [phone] Mikala Borges MD [address] [place], [place] [phone] Social History Tobacco Use Types Packs/Day Years Used Date Smoking Tobacco: Never Passive Smoke Exposure: Never Smokeless Tobacco: Never Alcohol Use Standard Drinks/Week Comments Never 0 (1 standard drink = 0.6 oz pur e alcohol) Housing Stability Answer Date Recorded What is your housing situation today? I have jeffy patel 08/07/[address] you li ve. Do you have problems with any of the following? None of the above 08/07/2023 Food Insecurity Answer Date Recorded Within the past 12 months, y ou worried that your food would run out before you got money to buy more: Never True 08/07/2023 Within the past 12 months,th e food you bought just didn't last and you didn't have enough money to get more: Never True 07/2023 Transportation Answer Date Recorded In the past 12 months, has l ack of transportation kept you from medical appts, meetings, work or from getting things needed for daily living? No 08/07/2023 Utilities Answer Date Recorded In the past 12 months, has t he electric, gas, oil or water company threatened to shut off services in your home? No 08/07/2023 Depression Answer Date Recorded Patient Health Questionnaire-2 [...] Description 12/17/2024 9:45 AM EST Office Visit [facility] MEDICINE [address] [place], [place] [phone] Mikala Borges MD [address] [place], [place] [phone] documented as of this encounter Procedures Procedure Name Priority Date/Time Associated Diagnosis Comments COLONOSCOPY Routine 05/02/2023 documented in this encounter Results * Hm Colonoscopy (05/02/2023) Colonoscopy Normal Normal Lisa Sanchez MD HEALTH MAINTENANCE Final Result documented in this encounter Visit Diagnoses Not on filedocumented in this encounter Care Teams Line Repairer Tower Relationship Specialty Start Date End Date Mikala Borges MD [address] [place] [address] PCP - General Family Medicine 10/29/18 Sherrie Etienne RN [address] [place] [address] Digital Asset CoordinatorCivil Rights Attorney 10/03/24 documented as of this encounter
--- OUTSIDE RECORDS SUMMARY | 2024-11-24 16:41 | XMS_ITS | Encounter Summary ---
Author Organization [employer] Address [address] 7[address] [place] [address] Care Team Providers Care Document Controller Name Role Phone Mikala Borges MD Primary Care Provider Sherrie Etienne RN Unavailable [phone] Reason for Visit * Reason Comments Asthma Encounter Details Date Type Department Care Team ([facility] st Contact Info) Description 11/24/2024 10:00 AM EST Office Visit [facility] [address] [place], [place] [phone] Kevin Flores MD [address] [place], [place] [phone] Mild persistent asthma with acute exacerbation (Primary Dx); Elevated BP without diagnosis of hypertension Social History Tobacco Use Types Packs/Day Years Used Date Smoking Tobacco: Never Passive Smoke Exposure: Never Smokeless Tobacco: Never Alcohol Use Standard Drinks/Week Comments Never 0 (1 standard drink = 0.6 oz pur e alcohol) Depression Answer Date Recorded Patient Health Questionnaire-9 Score 6 08/12/2024 Patient Health Questionnaire-9 Score 6 08/12/2024 Last PHQ-9: Questionnaire Data Not on file 1 Housing Stability Answer Date Recorded What is your housing situation today? I have jeffy patel 01/22/[address] you li ve. Do you have problems with any of the following? None of the above 01/22/2024 Food Insecurity Answer Date Recorded Within the past 12 months, y ou worried that your food would run out before you got money to buy more: Sometimes True 2023 Within the past 12 months,th e food you bought just didn't last and you didn't have enough money to get more: Sometimes True 10/24/2024 Transportation Answer Date Recorded In the past 12 months, has l ack of transportation kept you from medical appts, meetings, work or from getting things needed for daily living? No 01/15/2024 Utilities Answer Date Recorded In the past 12 months, has t he electric, gas, oil or water company threatened to shut off services in your home? No 10/24/2024 Depression Answer Date Recorded Patient Health Questionnaire-2 Score 1 08/12/2024 Internet Access Answer Date Recorded Internet Access Q1 Yes 08/12/2024 Internet Access Q2 Not on file 08/12/2024 Comments No Sex and Gender Information Value Date Recorded Sex Assigned at Female 08/28/2022 10:16 AM EDT Legal Sex Female 10:16 AM EDT Gender Identity Female 08/28/2022 10:16 AM EDT Sexual Orientation Straight 08/28/2022 10 :16 AM EDT documented as of this encounter Last Filed Vital Signs Vital Sign Reading Time Taken Comments Blood Pressure 160/90 11/24/2024 10:50 AM EST Pulse 89 11/24/2024 10:50 AM EST Temperature 36.7 ??C (98 ??F) 11/24/2024 10:50 AM EST Respiratory Rate 18 11/24/2024 10:50 AM EST Oxygen Saturation 98% 11/24/2024 10:50 AM EST Inhaled Oxygen Concentration - - Weight 109 kg (239 lb 3.2 oz) 11/24/2024 10:50 A M EST Height - - Body Mass Index 38.61 11/21/2024 8:53 AM EST documented in this encounter Progress Notes * Kevin Flores MD - 11/24/2024 10:00 AM EST Subjective Patient ID: Carmelina Etienne is a 54 y.o. female. 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 Never smoked. H/o KEHINDE Patient Active Problem List Diagnosis ??? Allergic rhinitis ??? Asthma ??? Carpal tunnel syndrome ??? Chronic pain ??? Chronic urticaria ??? Contact dermatitis ??? Dissociative convulsions ??? Eczema ??? Fibromyalgia ??? Rash ??? Gastroesophageal reflux disease without esophagitis ??? Irritable bowel syndrome ??? Recurrent kidney stones ??? Migraine with aura and without status migrainosus, not intractable ??? Obesity ??? Trochanteric bursitis ??? History of renal calculi ??? Status post laparoscopic appendectomy ??? Chronic bilateral low back pain without sciatica ??? Prediabetes ??? Abdominal bloating ??? Headache ??? Dental caries ??? Missing teeth, acquired ??? Dental plaque ??? Vitamin D deficiency ??? Chronic bilateral low back pain with right-sided sciatica ??? Difficulty sleeping ??? Elevated BP without diagnosis of hypertension ??? Ill-fitting dentures ??? Viral upper respiratory infection The following portions of the chart were reviewed this encounter and updated as appropriate: Review of Systems Objective Physical Exam Procedures Assessment/Plan * Kevin Flores MD - 11/24/2024 10:00 AM EST Subjective Patient ID: Carmelina Etienne is a 54 y.o. female. 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 Rapid Covid and Flu testing were neg. Prescribed Tessalon Perles. Carmelina returned to [facility] today stating that she has had 3 week h/o of productive cough, wheezing, SOBworse at night, tactile fever at night. Using Advair BID, Singulair; ran out of albuterol a while ago . Never smoked. H/o KEHINDE Not employed. Lives with , brother, mother. Patient Active Problem List Diagnosis Allergic rhinitis Asthma Carpal tunnel syndrome Chronic pain Chronic urticaria Contact dermatitis Dissociative convulsions Eczema Fibromyalgia Rash Gastroesophageal reflux disease without esophagitis Irritable bowel syndrome Recurrent kidney stones Migraine with aura and without status migrainosus, not intractable Obesity Trochanteric bursitis History of renal calculi Status post laparoscopic appendectomy Chronic bilateral low back pain without sciatica Prediabetes Abdominal bloating Headache Dental caries Missing teeth, acquired Dental plaque Vitamin D deficiency Chronic bilateral low back pain with right-sided sciatica Difficulty sleeping Elevated BP without diagnosis of hypertension Ill-fitting dentures Viral upper respiratory infection The following portions of the chart were reviewed this encounter and updated as appropriate: Tobacco Allergies Meds Problems Med Hx Surg Hx Fam Hx Review of Systems Constitutional: Positive for fever. Respiratory: Positive for cough, shortness of breath and wheezing. Cardiovascular: Negative for chest pain. Gastrointestinal: Negative for abdominal pain. Skin: Negative for rash. Neurological: Negative for headaches. Objective Physical Exam Constitutional: Appearance: Normal appearance. HENT: Right Ear: Tympanic membrane, ear canal and external ear normal. Left Ear: Tympanic membrane, ear canal and external ear normal. Nose: Nose normal. Mouth/Throat: Mouth: Mucous membranes are moist. Pharynx: Oropharynx is clear. Eyes: Conjunctiva/sclera: Conjunctivae normal. Pupils: Pupils are equal, round, and reactive to light. Cardiovascular: Rate and Rhythm: Normal rate and regular rhythm. Heart sounds: No murmur heard. Pulmonary: Effort: Pulmonary effort is normal. Breath sounds: Wheezing (mild diffuse bilat expiratory) present. Musculoskeletal: General: Normal range of motion. Cervical back: No tenderness. Skin: Findings: No rash. Neurological: Mental Status: She is alert. Gait: Gait is intact. Psychiatric: Mood and Affect: Mood normal. Behavior: Behavior normal. Procedures Assessment/Plan Diagnoses and all orders for this visit: Mild persistent asthma with acute exacerbation CXR done in [facility] read as Linear opacities in the right lower hemithorax. Concerning acute small airway inflammatory disease in the correct clinical settings. I called the radiologist, and he confirmed that it may be c/w atypical pneumonia. Prescribed Zithromax. Refilled albuterol HFA, prescribed chamber and prednisone. Rtc if not improving. - XR Chest 2 Views; Future Elevated BP without diagnosis of hypertension Prescribed home BP monitor. Reviewed BP parameters, given written BP log that includes BP parameters, to keep daily. Call if BP readings are elevated. Other orders - Blood Pressure kit; 1 each 2 times daily. - albuterol 108 (90 Base) MCG/ACT inhaler; Inhale 2 puffs every 4 (four) hours if needed for shortness of breath or wheezing. - predniSONE (Deltasone) 20 MG tablet; Take 2 tablets (40 mg) by mouth Once per day for 5 days. documented in this encounter Miscellaneous Notes * Addendum Note - Kevin Flores MD - 11/24/2024 10:00 AM ESTAddended by: KEVIN FLORES on: 11/24/2024 02:04 PM Modules accepted: Orders documented in this encounter Plan of Treatment Upcoming Encounters Date Type Department Care Team (Late st Contact Info) Description 12/17/2024 9:45 AM EST Office Visit [facility] MEDICINE [address] [place] [address] Mikala Borges MD [address] [place] [address] documented as of this encounter Procedures Procedure Name Priority Date/Time Associated Diagnosis Comments XR CHEST 2 VIEWS Routine 11/24/2024 11:5 2 AM EST Mild persistent asthma with acute exacerbation documented in this encounter Results * XR Chest 2 Views (11/24/2024 11:52 AM EST) Anatomical Region Laterality Modality Chest Radiographic Winnie ging 11/24/2024 11:5 2 AM EST Narrative 11/24/2024 12:54 PM EST ?[facility] ?[address] ?[place] [address] ?XRay Report ? Signed ? Patient: Carmelina Etienne ?MR#: [id number] ?? [id number] ? : 1970 ?Acct:[id number] ? Age/Sex: 54 / F ?ADM Date: 11/24/24 ? Loc: HO.HHCX ? Attending Dr: Kevin Flores MD ? Ordering Physician: KEVIN FLORES MD ?? Date of Service: 11/24/24 ?? Procedure(s): XR chest 2V ?? Accession Number(s): [id number] ? cc: KEVIN FLORES MD ? EXAMINATION: ?? XR CHEST ? CLINICAL INFORMATION: ?? 3 week h/o productive cough, fevers ? COMPARISON: ?? October 26, 2023 ? TECHNIQUE: ?? 2 views of the chest were obtained. ? FINDINGS: ?? Pulmonary reticular pattern. Linear opacities in the right lower ?? hemithorax. ?? No gross pleural effusion or pneumothorax. ?? No hyperinflation. ?? Cardiomediastinal silhouette is normal in size. ?? The osseous structures are intact. ? XR/XR chest 2V ?? IMPRESSION: ?? Concerning acute small airway inflammatory disease in the correct ?? clinical settings. ? Electronically signed by: ??Orlin Vieira MD ??11/24/2024 12:52 PM ?? EST RP ? Dictated By: ?Orlin Zafar MD ? Signed By: ?<Electronically signed by Orlin Wolf MD in OV> ? 11/24/24 1252 ? DD/ 1152 ? TD/TT: 11/24/24 1200 ? Farm Contractor: ? Procedure Note Peterter, Image - 11/24/[address] [address] XRay Report Signed Patient: Carmelina Eitenne EMR#: [id number] : 1970Acct:[id number] Age/Sex: 54 / FADM Date: 11/24/24 Loc: HO.HHCX Attending Dr: Kevin Flores MD Ordering Physician: KEVIN FLORES MD Date of Service: 11/24/24 Procedure(s): XR chest 2V Accession Number(s): [id number] cc: KEVIN FLORES MD EXAMINATION: XR CHEST CLINICAL INFORMATION: 3 week h/o productive cough, fevers COMPARISON: October 26, 2023 TECHNIQUE: 2 views of the chest were obtained. FINDINGS: Pulmonary reticular pattern. Linear opacities in the right lower hemithorax. No gross pleural effusion or pneumothorax. No hyperinflation. Cardiomediastinal silhouette is normal in size. The osseous structures are intact. XR/XR chest 2V IMPRESSION: Concerning acute small airway inflammatory disease in the correct clinical settings. Electronically signed by: Orlin Vieira MD 11/24/2024 12:52 PM EST Dictated By: Orlin Zafar MD Signed By: <Electronically signed by Orlin Wolf MDin OV> 11/24/24 1252 DD/ 1152 TD/TT: 11/24/24 1200 Farm Contractor: us Kevin Flores MD IMG XR PROCEDURES Final Result documented in this encounter Visit Diagnoses Diagnosis Mild persistent asthma with acute exacerbation- Primary Elevated BP without diagnosis of hypertension documented in this encounter Additional Health Concerns Assessment Noted Time PHQ-9 Depression Total Score: 6 08/12/20 24 1:10 PM EDT documented as of this encounter Care Teams Document Controller Relationship Specialty Start Date End Date Mikala Borges MD [address] [place] [address] PCP - General Family Medicine 10/29/18 Sherrie Etienne RN [address] [place] [address] Qa LeadCrude Oil Driver 10/03/24 documented as of this encounter
--- OUTSIDE RECORDS SUMMARY | 2024-11-24 16:41 | XMS_ITS | Encounter Summary ---
Author Organization [facility] Address [address] [place] [address] 7t [place] [address] Care Team Providers Care Pediatric Dental Hygienist Name Role Phone Mikala Borges MD Primary Care Provider [phone] Sherrie Etienne RN Unavailable [phone] Reason for Visit * Reason Comments Med Refill Encounter Details Date Type Department Care Team (Late Contact Info) Description 03/31/2023 Refill [facility] MEDICINE [address] [place] [address] [phone] Reinier Monroy MD [address] [place] [address] [phone] Other insomnia Social History Tobacco Use Types Packs/Day Years Used Date Smoking Tobacco: Never Smokeless Tobacco: Never Alcohol Use Standard [...] Encounters Date Type Department Care Team (Late Contact Info) Description 12/17/2024 9:45 AM EST Office Visit [facility] MEDICINE [address] [place], [place] [phone] Mikala Borges MD [address] [place] [address] [phone] documented as of this encounter Visit Diagnoses Diagnosis Other insomnia documented in this encounter Care Teams Pediatric Dental Hygienist Relationship Specialty Start Date End Date Mikala Borges MD [address] [place] [address] PCP - General Family Medicine 10/29/18 Sherrie Etienne RN [address] [place] [address] Energy Operations Vice PresidentSystem Operation Superintendent 10/03/24 documented as of this encounter
--- OUTSIDE RECORDS SUMMARY | 2024-11-24 16:41 | XMS_ITS | Encounter Summary ---
Author Organization [employer] [facility] Address [address] [facility] 7t [place] [address] Care Team Providers Care Gas Compressor Operator Name Role Phone Mikala Borges MD Primary Care Provider [phone] Sherrie Etienne RN Unavailable [phone] Encounter Details Date Type Department Care Team ([facility] Contact Info) Description 12/29/2022 Abstract [facility] ADULT DENTAL [address] [place] [address] Deuce Baird, DMD [address] [place] [address] Social History Tobacco Use Types Packs/Day Years [...] Orientation Straight 08/28/2022 10 :16 AM EDT COVID-19 Exposure Response Date Recorded In the last 10 days, have yo u been in contact with someone who was confirmed or suspected to have Coronavirus/COVID-19? No / Unsure 12/22/2022 10:47 AM EST documented as of this encounter Plan of Treatment Upcoming Encounters Date Type Department Care Team ([facility] Contact Info) Description 12/17/2024 9:45 AM EST Office Visit [facility] MEDICINE [address] [place] [address] Mikala Borges MD [address] [place] [address] documented as of this encounter Visit Diagnoses Not on filedocumented in this encounter Care Teams Gas Compressor Operator Relationship Specialty Start Date End Date Mikala Borges MD [address] [place] [address] PCP - General Family Medicine 10/29/18 Sherrie Etienne RN [address] [place] [address] Surtass AnalystHand Loom Weaver 10/03/24 documented as of this encounter
--- OUTSIDE RECORDS SUMMARY | 2024-11-24 16:42 | XMS_ITS | Encounter Summary ---
Author Organization [employer] [facility] Address [address] [facility] 7t [place] [address] Care Team Providers Care Marketing Technology Specialist Name Role Phone Mikala Borges MD Primary Care Provider [phone] Sherrie Etienne RN Unavailable [phone] Reason for Visit * Reason Comments Dentures Encounter Details Date Type Department Care Team ([facility] Contact Info) Description 11/10/2024 3:30 PM EST Office Visit [facility] ADULT DENTAL [address] [place] [address] Deuce Baird, SIMONE [address] [place], [place] [phone] Social History Tobacco Use Types Packs/Day Years [...] AM EDT documented as of this encounter Progress Notes * Deuce Baird DMD - 11/10/2024 3:30 PM EST C/C: broken P/ (resin base) and pain a LR and LL posterior area from the /P Impression is being taken for upper arch. Send P/ to [facility] for repair and /P for adjustment NV: Delivery of lab repair P/ and lab adjust /P Eliud documented in this encounter Plan of Treatment Upcoming Encounters Date Type Department Care Team (Late st Contact Info) Description 12/17/2024 9:45 AM EST Office Visit [facility] MED[facility]INE [address] [place] [address] Mikala Borges MD [address] [place] [address] documented as of this encounter Procedures Procedure Name Priority Date/Time Associated Diagnosis Comments NO CHARGE PROCEDURE Routine 11/10/2024 3:30 PM EST documented in this encounter Visit Diagnoses Not on filedocumented in this encounter Additional Health Concerns Assessment Noted Time PHQ-9 Depression Total Score: 6 08/12/20 24 1:10 PM EDT documented as of this encounter Care Teams Marketing Technology Specialist Relationship Specialty Start Date End Date Mikala Borges MD [address] [place] [address] PCP - General Family Medicine 10/29/18 Sherrie Etienne RN [address] [place] [address] Gameplay EngineerStone Operator 10/03/24 documented as of this encounter
--- OUTSIDE RECORDS SUMMARY | 2024-11-24 16:42 | XMS_ITS | Encounter Summary ---
Author Organization [employer] Address [address] [facility] 7t [place] [address] Care Team Providers Care Account Contact Associate Name Role Phone Mikala Borges MD Primary Care Provider [phone] Sherrie Etienne RN Unavailable [phone] Reason for Visit * Reason Comments Care Coordination SDOH Encounter Details Date Type Department Care Team (Latest Contact Info) Description 11/20/2024 Patient Outreach [facility] MEDICINE [address] [place] [address] Mikala Borges MD [address] [place], [place] [phone] Care Coordination (SDOH) Social History Tobacco Use Types Packs/Day Years [...] as of this encounter Progress Notes * Willow Hernandez - 11/20/2024 9:45 AM EST CHW Willow Hernandez/K[place]LEY Etienne RN placed outbound call to patient to follow up on SDOH needs.Patient's name, and address confirmed. Patient stated she received the food pantry list I sent in the mail and is very appreciative. No other SDOH needed at this time. No further questions or concerns. CHW reinforced direct contact information or for any additional questions or concerns and extended clinic hours on Mondays and Wednesdays, and Walk-In Urgent Care Located in [facility]. Patient provided with after-hours line for [facility], , which offer night time triage service and option to transfer to contract serviceman provider if needed. Patient verbalizes understanding, and able to repeat back to automotive service writer. A follow up call willbe placed within 10 days, patient agrees with plan. documented in this encounter Plan of Treatment Upcoming Encounters Date Type Department Care Team ([facility] st Contact Info) Description 12/17/2024 9:45 AM EST Office Visit [facility] MEDICINE [address] [place] [address] Mikala Borges MD [address] [place] [address] documented as of this encounter Visit Diagnoses Not on filedocumented in this encounter Additional Health Concerns Assessment Noted Time PHQ-9 Depression Total Score: 6 08/12/20 24 1:10 PM EDT documented as of this encounter Care Teams Account Contact Associate Relationship Specialty Start Date End Date Mikala Borges MD [address] [place] [address] PCP - General Family Medicine 10/29/18 Sherrie Etienne RN [address] [place] [address] Radio InstallerCommunity Sports Coordinator 10/03/24 documented as of this encounter
--- OUTSIDE RECORDS SUMMARY | 2024-11-24 16:42 | XMS_ITS | Encounter Summary ---
Author Organization [employer] [facility] Address [address] [place] [address] 7t [place] [address] Care Team Providers Care Senior Qa Automation Engineer Name Role Phone Mikala Borges MD Primary Care Provider [phone] Sherrie Etienne RN Unavailable [phone] Reason for Referral * Imaging (Urgent) - Authorized Specialty Diagnoses / Procedures Referred By Contac t Referred To Contact Radiology Diagnoses Breast pain Procedures BI Mammogram Diagnostic Tomosynthesis Bilateral Joy Lynch CNM [address] [place] [address] Phone: tel: fax: [address] Phone: tel: fax: Referral ID Status Reason Start Date Expiration Date V isits Requested Visits Authorized [id number] Authorized 11/04/2024 11/04/2025 1 1 * Imaging (Urgent) - Authorized Specialty Diagnoses / Procedures Referred By Contac t Referred To Contact Radiology Diagnoses Pelvic pain Procedures Us Pelvis complete Joy Lynch CNM [address] [place] [address] Phone: tel: fax: [facility] [address] [facility], [address] [place] [address] Phone: tel: fax: Referral ID Status Reason Start Date Expiration Date V isits Requested Visits Authorized [id number] Authorized 11/04/2024 11/04/2025 1 1 * Imaging (Urgent) - Authorized Specialty Diagnoses / Procedures Referred By Contkaushik t Referred To Contact Radiology Diagnoses Pelvic pain Procedures US Pelvis Transvaginal Joy Lynch CNM [address] [place] [address] Phone: tel: fax: [facility] [address] [facility], [address] [address] Phone: tel: fax: Referral ID Status Reason Start Date Expiration Date V isits Requested Visits Authorized [id number] Authorized 11/04/2024 11/04/2025 1 1 Reason for Visit * Reason Comments Gynecologic Exam Encounter Details Date Type Department Care Team (Late st Contact Info) Description 11/04/2024 11:15 AM EST Office Visit [facility] [address] [place] [address] Joy Lynch CNM [address] [place] [address] Pelvic pain (Primary Dx); Breast pain Social History Tobacco Use Types Packs/Day Years [...] Sign Reading Time Taken Comments Blood Pressure 152/93 11/04/2024 11:19 AM EST Pulse 86 11/04/2024 11:19 AM EST Temperature 36.3 ??C (97.3 ??F) 11/04/2024 11:[address] Respiratory Rate 20 11/04/2024 11:19 AM EST Oxygen Saturation 98% 11/04/2024 11:19 AM EST Inhaled Oxygen Concentration - - Weight 108 kg (238 lb 6.4 oz) 11/04/2024 11:19 A M EST Height 167.6 cm (5' 6 ) 11/04/2024 11:19 AM EST Body Mass Index 38.48 11/04/2024 11:19 AM EST documented in this encounter Progress Notes * Joy Lynch CNM - 11/04/2024 11:15 AM EST Subjective Patient ID: Carmelina Etienne is a 54 y.o. female who presents for breast and pelvic pain Seen in ER 09/2024 and 07/2024 for abdominal pain. Reports chronic RLQ pain, unable to ID cause. Occasional nausea, no other GI, vaginal or urinary symptoms. 1 long-term AMAB partner, not sexually active due to pain. Also notes bilateral breast pain for past few months. No other breast symptoms. Sister with breast cancer in her 40s. Last mammogram a few years ago. Hysterectomy, no pelvic pathology on CT 07/2024, non-obstructing stones and diverticulosis noted. She reports hysterectomy done for bleeding, no history of abnormal paps, ovaries remain. Review of Systems Constitutional: Negative for chills and fever. Gastrointestinal: Positive for nausea. Negative for constipation, diarrhea and vomiting. Genitourinary: Positive for dyspareunia and pelvic pain. Negative for dysuria, hematuria, vaginal discharge and vaginal pain. Objective BP (!) 152/93 (BP Location: Left arm, Patient Position: Sitting, BP Cuff Size: Large adult) Pulse86 Temp 97.3 ??F (36.3 ??C) (Temporal) Resp 20 Ht 5' 6 (1.676 m) Wt 238 lb 6.4 oz (108 kg) SpO2 98% BMI 38.48 kg/m?? Physical Exam Constitutional: Appearance: Normal appearance. Chest: Breasts: Right: Tenderness present. No swelling, bleeding, inverted nipple, mass, nipple discharge or skin change. Left: Tenderness present. No swelling, bleeding, inverted nipple, mass, nipple discharge or skin change. Comments: Tenderness upper inner quadrants bilaterally Genitourinary: General: Normal vulva. Labia: Right: No rash, tenderness, lesion or injury. Left: No rash, tenderness, lesion or injury. Vagina: Normal. No signs of injury and foreign body. No vaginal discharge, erythema, tenderness, bleeding, lesions or prolapsed vaginal garcia. Uterus: Absent. Adnexa: Right: Tenderness present. No mass or fullness. Left: No mass, tenderness or fullness. Comments: Cervix not seen/palpated. Tenderness right aspect along vaginal cuff. Lymphadenopathy: Upper Body: Right upper body: No supraclavicular or axillary adenopathy. Left upper body: No supraclavicular or axillary adenopathy. Neurological: Mental Status: She is alert. Psychiatric: Mood and Affect: Mood normal. Behavior: Behavior normal. Assessment/Plan Diagnoses and all orders for this visit: Pelvic pain - US Pelvis Transvaginal; Future - Us Pelvis complete; Future ? Adhesions/scar tissue. Will check ultrasound as precaution and contact with results. Some atrophyon exam as well. Could consider trial of vaginal estrogen if no other cause for pain found and no worrisome findings on breast imaging. No further paps needed. Breast pain - BI Mammogram Diagnostic Tomosynthesis Bilateral; Future For diagnostic breast imaging. Will contact with results. documented in this encounter Plan of Treatment Upcoming Encounters Date Type Department Care Team (Late st Contact Info) Description 12/17/2024 9:45 AM EST Office Visit [facility] MED[facility]INE [address] [place] [phone] Mikala Borges MD [address] [place] [address] Scheduled Orders Name Type Priority Associated Diagnoses Orde r Schedule US Pelvis Transvaginal Imaging Urgent Pelvic pain Expected: 11/04/2024, Expires: 11/04/2025 Us Pelvis complete Imaging Urgent Pelvic pain Expected: 11/04/2024, Expires: 11/04/2025 BI Mammogram Diagnostic Tomosynthesis Bilateral Imaging Urgent Breast pain Expected: 11/04/2024, Expires: 01/02/2026 documented as of this encounter Visit Diagnoses Diagnosis Pelvic pain- Primary Breast pain Mastodynia documented in this encounter Additional Health Concerns Assessment Noted Time PHQ-9 Depression Total Score: 6 08/12/20 24 1:10 PM EDT documented as of this encounter Care Teams Senior Qa Automation Engineer Relationship Specialty Start Date End Date Mikala Borges MD [address] [place] [address] PCP - General Family Medicine 10/29/18 Sherrie Etienne, ALBERTO [address] [place] [address] Command Post SuperintendentFoundation Relations Manager 10/03/24 documented as of this encounter
--- OUTSIDE RECORDS SUMMARY | 2024-11-24 16:42 | XMS_ITS | Encounter Summary ---
Author Organization [employer] [facility] Address [address] [facility] 7t [place] [address] Care Team Providers Care Blasting Worker Name Role Phone Mikala Borges MD Primary Care Provider [phone] Sherrie Etienne RN Unavailable [phone] Reason for Visit * Reason Comments Dentures Denture follow up Encounter Details Date Type Department Care Team ([facility] st Contact Info) Description 11/12/2024 9:00 AM EST Office Visit [facility] ADULT DENTAL [address] [place] [address] Jaelgetachew Adebayo, INEZS [address] [place], [place] [phone] Ill-fitting dentures (Primary Dx) Social History Tobacco Use Types [...] your housing situation today? I have jeffy paetl 01/22/[address] you li [...] Sign Reading Time Taken Comments Blood Pressure 130/68 11/12/2024 9:19 AM EST Pulse - - Temperature - - Respiratory Rate - - Oxygen Saturation - - Inhaled Oxygen Concentration - - Weight - - Height - - Body Mass Index - - documented in this encounter Progress Notes * Adebayo Pelayo DDS - 11/12/2024 9:00 AM EST Patient ID: Carmelina Etienne is a 54 y.o. female. Time Out: Timeout Date: 11/12/24, Timeout Time: 914 (denture follow up) Location: [facility] Tooth: Maxilla and Mandible RPD Procedure: Dentures Verified the above with patient, culinary assistant, and provider. Confirmed via patient's chart, intraorally and by radiographs. Supervisor Heading: not applicable Chief Complaint Patient presents with Dentures Denture follow up Medical Hx: Vitals: Blood pressure 130/68. Medications, Med Hx reviewed with patient and updated in chart. Consent Obtained: The risks, benefits, indications, potential complications, and alternatives were explained to the patient and informed consent was obtained with good understanding. Treatment Provided: Dental procedures in this visit D5612 - PROSTHODONTICS (REMOVABLE) - REPAIRS TO PARTIAL DENTURES - REPAIR RESIN PARTIAL DENTURE BASE, MAXILLARY (Completed) Service provider: Adebayo Pelayo DDS Billing provider: Adebayo ePlayo DDS [id number] - ADD TOOTH TO EXISTING PARTIAL DENTURE 8 (Completed) Service provider: Adebayo Pelayo DDS Billing provider: Adebayo Pelayo DDS [id number] - ADJUNCTIVE GENERAL SERVICES - PROFESSIONAL VISITS - CASE PRESENTATION, SUBSEQUENT TO DETAILED AND EXTENSIVE TREATMENT PLANNING (Completed) Service provider: Adebayo Pelayo DDS Billing provider: Adebayo Pelayo DDS Tried in denture(s) -Evaluated for comfort, fit, phonetics, and stability (f, v, s, th sounds; swallow, yawn, etc) -Evaluated for satisfactory esthetics. Bilateral clasp adjusted on both RPDs. -Occlusion verified; adjustments made as necessary. Patient has received information sheet for denture care and expectations. Pt was provided with denture case and denture brush. NV: F/U as needed / Junior Automation Engineer: Ericka Gil Dentist: Adebayo Pelayo DDS documented in this encounter Plan of Treatment Upcoming Encounters Date Type Department Care Team (Late st Contact Info) Description 12/17/2024 9:45 AM EST Office Visit [facility] MEDICINE [address] [place], [place] [phone] Mikala Borges MD [address] [place] [address] documented as of this encounter Procedures Procedure Name Priority Date/Time Associated Diagnosis Comments PROSTHODONTICS (REMOVABLE) - REPAIRS TO PARTIAL DENTURES - REPAIR RESIN PARTIAL DENTURE BASE, MAXILLARY Routine 11/12/2024 9:00 AM EST ADJUNCTIVE GENERAL SERVICES - PROFESSIONAL VISITS - CASE PRESENTATION, SUBSEQUENT TO DETAILED AND EXTENSIVE TREATMENT PLANNING Routine 11/12/2024 9:00 AM EST 8 ADD TOOTH TO EXISTING PARTIAL DENTURE Routine 11/12/2024 9:00 AM EST documented in this encounter Visit Diagnoses Diagnosis Ill-fitting dentures- Primary documented in this encounter Additional Health Concerns Assessment Noted Time PHQ-9 Depression Total Score: 6 08/12/20 24 1:10 PM EDT documented as of this encounter Care Teams Blasting Worker Relationship Specialty Start Date End Date Mikala Borges MD [address] [place] [address] PCP - General Family Medicine 10/29/18 Sherrie Etienne RN [address] [place] [address] Behavioral Health ConsultantRespiratory Therapy Manager 10/03/24 documented as of this encounter
--- OUTSIDE RECORDS SUMMARY | 2024-11-24 16:42 | XMS_ITS | Encounter Summary ---
Author Organization [employer] Address [address] [facility] 7t [place] [address] Care Team Providers Care Customer Care Voice Consultant Name Role Phone Mikala Borges MD Primary Care Provider [phone] Sherrie Etienne RN Unavailable [phone] Reason for Visit * Reason Comments Med Refill Encounter Details Date Type Department Care Team ([facility] st Contact Info) Description 11/12/2024 Refill [facility] MED[facility]INE [address] [place], [place] [phone] Mikala Borges MD [address] [place], [place] [phone] Moderate persistent asthma without complication Social History Tobacco Use Types Packs/Day Years [...] AM EST Office Visit [facility] MED[facility]INE [address] [place] [address] Mikala Borges MD [address] [place] [address] documented as of this encounter Visit Diagnoses Diagnosis Moderate persistent asthma without complication documented in this encounter Additional Health Concerns Assessment Noted Time PHQ-9 Depression Total Score: 6 08/12/20 24 1:10 PM EDT documented as of this encounter Care Teams Customer Care Voice Consultant Relationship Specialty Start Date End Date Mikala Borges MD [address] [place] [address] PCP - General Family Medicine 10/29/18 Sherrie Etienne RN [address] [place] [address] Crusher And Blender OperatorSr. Logistics Analyst 10/03/24 documented as of this encounter
--- OUTSIDE RECORDS SUMMARY | 2024-11-24 16:42 | XMS_ITS | Encounter Summary ---
Author Organization [employer] Address [address] [facility] [address] 7t [place] [address] Care Team Providers Care Visual Merchandising Director Name Role Phone Mikala Borges MD Primary Care Provider [phone] Sherrie Etienne RN Unavailable [phone] Encounter Details Date Type Department Care Team ([facility] st Contact Info) Description 10/30/2024 Telephone [facility] [address] [place], [place] [phone] Sherrie Etienne, RN [address] [place], [place] [phone] Social History Tobacco Use Types Packs/Day Years [...] Access Q2 Not on file 08/12/2024 Comments Unknown Sex and Gender Information Value Date Recorded Sex Assigned at Female 08/28/2022 10:16 AM EDT Legal Sex Female 10:16 AM EDT Gender Identity Female 08/28/2022 10:16 AM EDT Sexual Orientation Straight 08/28/2022 10 :16 AM EDT documented as of this encounter Miscellaneous Notes * Telephone Encounter - Leah Jamil RN - 10/30/2024 2:30 PM EST Called pt. RE: Breast pain and request for referral to NATIONAL SALES REPRESENTATIVE. Called via [facility] hotel dining room cashier [phone] [place]. Pt. States that she is having burning pain in her right breast. No lump, no discharge. Pt does see some little red dots on and off over the past few weeks. Pt is having BM's WNL and urinating WNL. Nofever. Pt. States she also needs to see the NATIONAL SALES REPRESENTATIVE because she went to see a Receptionist Scheduler at [facility] for lower abdominal pain but they stated that she may need to see a NATIONAL SALES REPRESENTATIVE due to right ovary pain. I made appt. For 11/04/24 at 11:15am with Joy and if pt. Needs further treatment for breast than joy can let us know to book with provider. Protocol Used: Abdominal Pain - Female (Adult) Protocol-Based Disposition: See in Office or Video Visit within 2 Weeks-appt. 11/04/24 at 11:15am. With joy. Positive Triage Question: * Abdominal pain is a chronic symptom (recurrent or ongoing AND lasting > 4 weeks) * All higher-acuity triage questions were negative Care Advice Discussed: * Rest * Drink Clear Fluids * Telephone Encounter - Sherrie Etienne RN - 10/30/2024 1:50 PM EST CM received v/m message from patient today at 1:25pm. Patient is requesting a mammography screeningstating she is experiencing breast pain. She is also requesting a referral to NATIONAL SALES REPRESENTATIVE. She states she f/u with GI and was instructed to f/u with NATIONAL SALES REPRESENTATIVE as her pain may be associated with her ovaries? Per patient, has not seen NATIONAL SALES REPRESENTATIVE in some time. CM placed call to patient for f/u. No answer. Left v/m requesting return call. Will forward to triage team to re attempt contact with patient. documented in this encounter Plan of Treatment Upcoming Encounters Date Type Department Care Team (Late st Contact Info) Description 12/17/2024 9:45 AM EST Office Visit [facility] MEDICINE [address] [place] [address] Mikala Borges MD [address] [place] [address] documented as of this encounter Visit Diagnoses Not on filedocumented in this encounter Additional Health Concerns Assessment Noted Time PHQ-9 Depression Total Score: 6 08/12/20 24 1:10 PM EDT documented as of this encounter Care Teams Visual Merchandising Director Relationship Specialty Start Date End Date Mikala Borges MD [address] [place] [address] PCP - General Family Medicine 10/29/18 Sherrie Etienne RN [address] [place] [address] Senior AccountantRevenue Field Auditor 10/03/24 documented as of this encounter
--- OUTSIDE RECORDS SUMMARY | 2024-11-24 16:42 | XMS_ITS | Encounter Summary ---
Author Organization [employer] Address [address] [facility] [address] 7t [place] [address] Care Team Providers Care Solar Sales Assessor Name Role Phone Mikala Borges MD Primary Care Provider [phone] Sherrie Etienne RN Unavailable [phone] Encounter Details Date Type Department Care Team (Latest Contact Info) Description 11/04/2024 Travel Social History Tobacco Use Types Packs/Day Years [...] Description 12/17/2024 9:45 AM EST Office Visit [facility] MEDICINE [address] [place] [address] Mikala Borges MD [address] [place] [address] documented as of this encounter Visit Diagnoses Not on filedocumented in this encounter Additional Health Concerns Assessment Noted Time PHQ-9 Depression Total Score: 6 08/12/20 24 1:10 PM EDT documented as of this encounter Care Teams Solar Sales Assessor Relationship Specialty Start Date End Date Mikala Borges MD [address] [place] [address] PCP - General Family Medicine 10/29/18 Sherrie Etienne RN [address] [place] [address] Turning Machine Set Up OperatorRaw Stock Dyeing Machine Tender 10/03/24 documented as of this encounter
--- OUTSIDE RECORDS SUMMARY | 2024-11-24 16:42 | XMS_ITS | Encounter Summary ---
Author Organization [employer] Address [address] [facility] 7t [place] [address] Care Team Providers Care Magnaflux Operator Name Role Phone Mikala Borges MD Primary Care Provider [phone] Sherrie Etienne RN Unavailable [phone] Reason for Visit * Reason Onset Date Comments Care Management 11/10/2024 C3CM- f/u call Encounter Details Date Type Department Care Team ([facility] st Contact Info) Description 11/10/2024 Telephone [facility] MEDICINE [address] [place], [place] [phone] Sherrie Etienne RN [address] [place], [place] [phone] Care Management (C3CM- f/u call) Social History Tobacco Use Types Packs/Day Years [...] your housing situation today? I have jeffy jorge 01/22/[address] you li [...] encounter Miscellaneous Notes * Telephone Encounter - Sherrie Etienne RN - 11/10/2024 11:04 AM EST KINGSLEY Etienne RN placed outbound call to patient. Patient's name, and address confirmed. Patient states is doing well with no recent illnesses or emergency room visits. Patient confirms attending visit with Joy on 11/04. She states the visit went well. Per patient, called by two differentfacilities to schedule the US pelvic/transvaginal, which was ordered by Joy. Per patient, was contacted by [facility] and is scheduled to be seen on 11/11/24 at 2:00pm. She states she was also contacted by an office in [place] and is scheduled to be seen on 11/26/24. Patient states she would prefer to keep the visit in [place] and will be calling [facility] to cancel the appt. KINGSLEY called Fer stark that the visit is for the US pelvic/transvaginal. She is scheduled to be seen on 11/26/24 and patient is expected to arrive at 12:40pm. CM sent appt details to patient via [employer]. Per patient,has not yet been contacted with mammogram appt details. CM will f/u. Patient confirms that she is still attending visits with PT. She states she is on her way to an appt now. She reports some difficulties with communication due to language barrier. She states the office does not have any English speaking staff on site. Patient states she does not have anyone who can accompany her to her appts to interpret. Per patient, does not feel PT has been effective. She states she was placed in a machine last week which only exacerbated her pain. Per patient, made the provider aware of this. She states that at the following visit, she received electrical stimulation and massage which did provide some relief. Per patient, taking tylenol for pain as well with mild effect. Patient states she was made aw are that her BP was elevated during her last office visit. She states she made one attempt to checkher BP at home but machine was not working and she has not tried since. Per patient, has been feeling well so she hasn't checked her BP. CM provided education regarding BP, diet, and lifestyle modifications. Advised that she make an attempt to monitor and contact CM if her monitor is not working so that a new one can be provided to her if needed. She agrees. Patient is aware of her scheduled dental appt today and denies any barriers to attending the visit. No further questions or concerns. CM reinforced direct contact information for any additional questions or concerns. Education provided on Walk-In Urgent Care located in [facility] of [facility]. Patient provided with after-hours line for [facility], , which offer night time triage service and option to transfer to division sergeant provider if needed. Patient verbalizes understanding, and able to r epeat back to senior technical writer. A follow up call will be placed within 10 days, patient agrees with plan. documented in this encounter Plan of Treatment Upcoming Encounters Date Type Department Care Team (Late st Contact Info) Description 12/17/2024 9:45 AM EST Office Visit [facility] MED[facility] [address] [place] [address] Mikala Borges MD [address] [place], [place] [phone] documented as of this encounter Visit Diagnoses Not on filedocumented in this encounter Additional Health Concerns Assessment Noted Time PHQ-9 Depression Total Score: 6 08/12/20 24 1:10 PM EDT documented as of this encounter Care Teams Magnaflux Operator Relationship Specialty Start Date End Date Mikala Borges MD [address] [place] [address] PCP - General Family Medicine 10/29/18 Sherrie Etienne RN [address] [place] [phone] Automation ManagerDirector Web 10/03/24 documented as of this encounter
--- OUTSIDE RECORDS SUMMARY | 2024-11-24 16:42 | XMS_ITS | Encounter Summary ---
Author Organization [employer] Address [address] [facility] 7t [place] [address] Care Team Providers Care Manager Performance Improvement Name Role Phone Mikala Borges MD Primary Care Provider [phone] Sherrie Etienne RN Unavailable [phone] Reason for Visit * Reason Comments Cough Headache Sore Throat Encounter Details Date Type Department Care Team ([facility] st Contact Info) Description 11/21/2024 9:00 AM EST Office Visit [facility] [address] [place] [phone] Nereyda Hawk MD [address] [place], [place] [phone] Viral upper respiratory infection (Primary Dx) Social History Tobacco Use Types Packs/Day Years Used Date Smoking Tobacco: Never Passive Smoke Exposure: Never Smokeless Tobacco: Never Tobacco Cessation:Counseling Given: Not Answered Alcohol Use Standard Drinks/Week Comments Never 0 [...] Sign Reading Time Taken Comments Blood Pressure 138/84 11/21/2024 8:53 AM EST Pulse 82 11/21/2024 8:53 AM EST Temperature 36.8 ??C (98.2 ??F) 11/21/2024 8:53 AM ES T Respiratory Rate 18 11/21/2024 8:53 AM EST Oxygen Saturation 99% 11/21/2024 8:53 AM EST Inhaled Oxygen Concentration - - Weight 108 kg (238 lb 6.4 oz) 11/21/2024 8:53 AM EST Height 167.6 cm (5' 6 ) 11/21/2024 8:53 AM EST Body Mass Index 38.48 11/21/2024 8:53 AM EST documented in this encounter Progress Notes * Roberta Dior - 11/21/2024 9:00 AM EST Subjective History was provided by the patient. Carmelina Etienne is a 54 y.o. female with PMHx of fibromyalgia, dissociated convulsion, prediabetes, recurrent kidney stones, and asthma who presents for evaluation of symptoms of a URI. Symptoms include cough, congestion, and headache . Onset of symptoms was 1 day ago, gradually worsening since that time. Associated negative symptoms include fever, nausea, vomiting, and recent travel. Evaluationto date: none. Treatment to date: none. Objective Vitals: 11/21/24 0853 BP: 138/84 BP Location: Left arm Patient Position: Sitting BP Cuff Size: Large adult Pulse: 82 Resp: 18 Temp: 98.2 ??F (36.8 ??C) TempSrc: Oral SpO2: 99% Weight: 238 lb 6.4 oz (108 kg) Height: 5' 6 (1.676 m) Physical Exam Constitutional: Appearance: Normal appearance. HENT: Right Ear: Tympanic membrane normal. Left Ear: Tympanic membrane normal. Nose: Congestion present. Mouth/Throat: Pharynx: Oropharynx is clear. No oropharyngeal exudate. Eyes: Conjunctiva/sclera: Conjunctivae normal. Cardiovascular: Rate and Rhythm: Normal rate and regular rhythm. Heart sounds: Normal heart sounds. Pulmonary: Effort: Pulmonary effort is normal. Breath sounds: Normal breath sounds. Comments: Intermittent dry cough. Musculoskeletal: Cervical back: Normal range of motion. No rigidity or tenderness. Neurological: Mental Status: She is alert. Psychiatric: Behavior: Behavior normal. No visits with results within 2 Day(s) from this visit. Latest known visit with results is: Orders Only on 09/30/2024 Component Date Value Ref Range Status White Blood Count 09/30/2024 8.5 4.8 - 10.8 X10*3/uL Final Red Blood Count 09/30/2024 4.47 4.20 - 5.50 X10*6/uL Final Hemoglobin 09/30/2024 12.2 12.0 - 16.0 g/dl Final Hematocrit 09/30/2024 37.8 37.0 - 47.0 % Final Mean Corpuscular Volume 09/30/2024 84.6 80.0 - 98.0 fL Final Mean Corpuscular Hemoglobin 09/30/2024 27.3 27.0 - 33.0 pg Final Mean Corpuscular HGB Conc 09/30/2024 32.3 31.0 - 35.0 g/dl Final Red Cell Distribution Width 09/30/2024 13.6 11.0 - 16.0 % Final Platelet Count 09/30/2024 306 160 - 400 X10*3/uL Final Mean Platelet Volume 09/30/2024 8.3 (L) 9.4 - 12.3 fL Final Neutrophils Percent Auto 09/30/2024 51.1 45 - 73 % Final Imm Gran Pct Auto 09/30/2024 0.1 0.0 - 0.4 % Final Lymphocytes Percent Auto 09/30/2024 38.6 20 - 40 % Final Monocytes Percent Auto 09/30/2024 7.3 2 - 11 % Final Eosinophils Percent Auto 09/30/2024 2.5 0 - 4 % Final Basophils Percent Auto 09/30/2024 0.4 0 - 2 % Final NRBC Pct Auto 09/30/2024 0.0 0.0 - 0.2 /100WBC Final Neutrophils Absolute Auto 09/30/2024 4.3 2.0 - 8.3 x10*3/uL Final Imm Gran Abs Auto 09/30/2024 0.01 0.00 - 0.03 X10*3/uL Final Lymphocytes Absolute Auto 09/30/2024 3.3 1.2 - 4.9 X10*3/uL Final Monocytes Absolute Auto 09/30/2024 0.6 0.1 - 1.2 X10*3/uL Final Eosinophils Absolute Auto 09/30/2024 0.2 0.0 - 0.4 X10*3/uL Final Basophils Absolute Auto 09/30/2024 0.0 0.0 - 0.2 X10*3/uL Final NRBC Abs Auto 09/30/2024 0.000 0.0 - 0.012 X10*3/uL Final Sodium 09/30/2024 142 135 - 145 mmol/L Final Potassium 09/30/2024 3.7 3.3 - 5.1 mmol/L Final Chloride 09/30/2024 105 96 - 108 mmol/L Final Carbon Dioxide 09/30/2024 29 22 - 29 mmol/L Final Anion Gap 09/30/2024 12 12 - 20 Final Urea Nitrogen (BUN) 09/30/2024 10 9 - 16 mg/dL Final Creatinine, Serum 09/30/2024 0.90 0.5 - 1.4 mg/dL Final Creatinine Clr Calc Pharmacy 09/30/2024 90.9 Final Provided height and weight: 167.64 cm,107.9 kg.eGFR (calculated from the MDRD study equation) and eCrCl(calculated from the Cockcroft-Gault equation) are based ondifferent parameters and may not yield comparable results.If eCrCl result is absurd, please check patient'sheight/weight. Estimated Glomerular Filt Rate 09/30/2024 >60 Final Chronic Kidney Disease: Estimated GFR < 60 mL/min/1.55a5Psixmb Kidney Disease: Estimated GFR < 15 mL/min/1.73m2 Glucose 09/30/2024 104 60 - 115 mg/dL Final Calcium 09/30/2024 9.7 8.4 - 10.2 mg/dL Final Bilirubin, Total 09/30/2024 0.3 0.0 - 1.0 mg/dL Final Aspartate Amino Transferase 09/30/2024 29 5 - 31 U/L Final Alanine Aminotransferase 09/30/2024 28 0 - 31 U/L Final Total Protein 09/30/2024 7.8 6.5 - 8.0 g/dL Final Albumin Level 09/30/2024 4.3 3.5 - 5.0 g/dL Final Alkaline Phosphatase 09/30/2024 84 39 - 117 U/L Final Lipase 09/30/2024 14 8 - 78 U/L Final Problem List Items Addressed This Visit Viral upper respiratory infection - Primary COVID, Flu and Strep negative. No evidence of respiratory distress. Symptoms mild. -No evidence of dehydration. -prescribed benzonatate (Tessalon Perles) 100 MG -Supportive care advised. Relevant Medications benzonatate (Tessalon Perles) 100 MG capsule Other Relevant Orders Influenza A (ID NOW Rapid Molecular) Influenza B (ID NOW Rapid Molecular) POCT Rapid COVID Ag POCT rapid strep A manually resulted -No evidence of acute disease process. Suspect viral URI. Swabs negative. Symptoms mild. -Will treat with cough suppressant. -ER precautions discussed. -Seek medical attention for worsening symptoms. I, Roberta Dior, am serving as a scribe to document services personally performed by Dr. Thompson, based on the patient's response to questions by provider and providers statements to me. documented in this encounter Miscellaneous Notes * Assessment & Plan Note - Roberta Dior - 11/21/2024 9:23 AM ESTAssociated Problem(s): Viral upper respiratory infection COVID, Flu and Strep negative. No evidence of respiratory distress. Symptoms mild. -No evidence of dehydration. -prescribed benzonatate (Tessalon Perles) 100 MG -Supportive care advised. documented in this encounter Plan of Treatment Upcoming Encounters Date Type Department Care Team (Late st Contact Info) Description 12/17/2024 9:45 AM EST Office Visit [facility] MEDICINE [address] [place] [address] Mikala Borges MD [address] [place], [place] [phone] documented as of this encounter Procedures Procedure Name Priority Date/Time Associated Diagnosis Comments POCT INFLUENZA B (ID NOW RAPID MOLECULAR) Routine 11/21/2024 9:28 AM EST Viral upper respiratory infection POCT INFLUENZA A (ID NOW RAPID MOLECULAR) Routine 11/21/2024 9:28 AM EST Viral upper respiratory infection POCT RAPID COVID ANTIGEN Routine 11/21/2024 9:28 AM EST Viral upper respiratory infection POCT RAPID STREP A Routine 11/21/2024 9: 28 AM EST Viral upper respiratory infection documented in this encounter Results * POCT rapid strep A manually resulted (11/21/2024 9:28 AM EST) Rapid Strep A Screen Negative Negative, None Detected Swab 11/21/2024 9:28 AM EST Nereyda Hawk MD POINT OF CARE TEST ENTER/E DIT ORDERABLES Final Result * POCT Rapid COVID Ag (11/21/2024 9:28 AM EST) Rapid COVID Ag Negative Swab 11/21/2024 9:28 AM EST Nereyda Hawk MD POINT OF CARE TEST ENTER/E DIT ORDERABLES Final Result * Influenza B (ID NOW Rapid Molecular) (11/21/2024 9:28 AM EST) Influenza B Negative Negative, Indeterminate [facility] Swab 11/21/2024 9:28 AM EST Nereyda Hawk MD POINT OF CARE TEST ENTER/E DIT ORDERABLES Final Result Performing Organization Address [facility]/ZIP Co de Phone Number [facility] [address] [place] [phone] * Influenza A (ID NOW Rapid Molecular) (11/21/2024 9:28 AM EST) Pathologist [facility] Influenza A Negative Negative, Indeterminate [facility] Swab 11/21/2024 9:28 AM EST Nereyda Hawk MD POINT OF CARE TEST ENTER/E DIT ORDERABLES Final Result Performing Organization Address City/[facility] Co de Phone Number [facility] [address] [place] [phone] documented in this encounter Visit Diagnoses Diagnosis Viral upper respiratory infection- Primary Acute upper respiratory infections of unspecified site documented in this encounter Additional Health Concerns Assessment Noted Time PHQ-9 Depression Total Score: 6 08/12/20 24 1:10 PM EDT documented as of this encounter Care Teams Manager Performance Improvement Relationship Specialty Start Date End Date Mikala Borges MD [address] [place] [address] PCP - General Family Medicine 10/29/18 Sherrie Etienne RN [address] [place] [phone] TattooerReproductive Surgeon 10/03/24 documented as of this encounter
--- OUTSIDE RECORDS SUMMARY | 2024-11-24 16:42 | XMS_ITS | Encounter Summary ---
Author Organization [employer] Address [address] [facility] 7t [place] [address] Care Team Providers Care Diesel Inspector Name Role Phone Mikala Borges MD Primary Care Provider [phone] Sherrie Etienne RN Unavailable [phone] Reason for Visit * Reason Comments Care Coordination SDOH Encounter Details Date Type Department Care Team (Latest Contact Info) Description 11/13/2024 Patient Outreach [facility] MEDICINE [address] [place], [place] [phone] Mikala Borges MD [address] [place], [place] [phone] Care Coordination (SDOH) Social History Tobacco Use [...] encounter Progress Notes * Willow Hernandez - 11/13/2024 2:26 PM EST CHW Willow Hernandez placed outbound call to patient for follow up call on SDOH needs. No answer at this time. LVM introducing herself from [facility] CM Department. Requested call back. CHWreinforced direct contact information or CM for any additional questions or concernsand extended clinic hours on Mondays and Wednesdays, and Walk-In Urgent Care Located in [facility] of [facility]. Patient provided with after-hours line for [facility], , which offer night time triage service and option to transfer to lead consultant provider if needed. CHW will attempt another follow up call within 10 days. documented in this encounter Plan of Treatment Upcoming Encounters Date Type Department Care Team (Late st Contact Info) Description 12/17/2024 9:45 AM EST Office Visit [facility] MEDICINE [address] [place] [address] Mikala Borges MD [address] [place], [place] [phone] documented as of this encounter Visit Diagnoses Not on filedocumented in this encounter Additional Health Concerns Assessment Noted Time PHQ-9 Depression Total Score: 6 08/12/20 24 1:10 PM EDT documented as of this encounter Care Teams Diesel Inspector Relationship Specialty Start Date End Date Mikala Borges MD [address] [place] [address] PCP - General Family Medicine 10/29/18 Sherrie Etienne RN [address] [place] [phone] Mailing JoggerLogistics Supervisor 10/03/24 documented as of this encounter
--- OUTSIDE RECORDS SUMMARY | 2024-11-24 16:42 | XMS_ITS | Encounter Summary ---
Author Organization [employer] Address [address] [facility] 7t [place] [address] Care Team Providers Care Security Operations Specialist Name Role Phone Mikala Borges MD Primary Care Provider [phone] Sherrie Etienne RN Unavailable [phone] Reason for Visit * Reason Onset Date Comments Care Management 10/31/2024 C3CM- f/u call Encounter Details Date Type Department Care Team ([facility] st Contact Info) Description 10/31/2024 Telephone [facility] MEDICINE [address] [place], [place] [phone] Sherrie Etienne RN [address] [place], [place] [phone] Care Management (C3CM- f/u call) Social History [...] Telephone Encounter - Sherrie Etienne RN - 10/31/2024 1:01 PM EST KINGSLEY Etienne RN placed outbound call to patient. Patient's name, and address confirmed. Patient denies any recent visits to the emergency department. Patient was triaged yesterday and has anappt scheduled on 11/04/24. Patient reports having transportation to the visit and denies any barriers to attending. Per patient, started PT on Sunday. She reports taking tylenol for back pain. Patientalso applying warm/ cold compress as directed by PT. Per patient, seeing PT on and . She is scheduled for her next visit on . Patient states she has not been monitoring her BP. She confirms having a working BP monitor and agrees to start monitoring at least once daily. She agrees to keep a log and will f/u with RN at next f/u call or sooner as needed. Patient reports taking all meds as directed and denies any concerns or side effects. She reports doing well emotionally and denies any symptoms at this time. No further questions or concerns. CM reinforced direct contact information for any additional questions or concerns. Education provided on Walk-In Urgent Care located in [facility]. Patient provided with after-hours line for [facility], , which offer night time triage service and option to transfer to electronic page makeup system operator provider if needed. Patient verbalizes understanding, and able to r epeat back to production underwriter. A follow up call will be placed within 10 days, patient agrees with plan. documented in this encounter Plan of Treatment Upcoming Encounters Date Type Department Care Team (Late st Contact Info) Description 12/17/2024 9:45 AM EST Office Visit [facility] MEDICINE [address] [place] [phone] Mikala Borges MD [address] [place], [place] [phone] documented as of this encounter Visit Diagnoses Not on filedocumented in this encounter Additional Health Concerns Assessment Noted Time PHQ-9 Depression Total Score: 6 08/12/20 24 1:10 PM EDT documented as of this encounter Care Teams Security Operations Specialist Relationship Specialty Start Date End Date Mikala Borges MD [address] [place] [address] PCP - General Family Medicine 10/29/18 Sherrie Etienne RN [address] [place] [address] Pv Installer TechAddress Change Clerk 10/03/24 documented as of this encounter
--- OUTSIDE RECORDS SUMMARY | 2024-11-24 16:42 | XMS_ITS | Encounter Summary ---
Author Organization [employer] Address [address] [facility] 7t [place] [address] Care Team Providers Care Manager Integrated Name Role Phone Mikala Borges MD Primary Care Provider [phone] Sherrie Etienne RN Unavailable [phone] Reason for Visit * Reason Onset Date Comments Care Management 11/20/2024 C3CM- f/u call Encounter Details Date Type Department Care Team ([facility] st Contact Info) Description 11/20/2024 Telephone [facility] MEDIC[facility] [address] [place], [place] [phone] Sherrie Etienne RN [address] [place], [place] [phone] Care Management (C3CM- f/u call) Social History [...] Telephone Encounter - Sherrie Etienne RN - 11/20/2024 9:22 AM EST CM Sherrie Etienne RN and CHW Willow Hernandez placed outbound call to patient. Patient's name, and address confirmed. Patient c/o cough with productive clear phlegm, congestion, and headache x3 days. Per patient, taking nyquil and drinking tea with honey. She states she does not want to come to the clinic for eval as she does not want to be covid tested. CM provided education and advised that she should be f/u for evaluation if symptoms not improving. She states she cannot come to the clinic either today or tomorrow but may consider going to the walk in on Sunday if symptoms do not improve by then. Patient states she has not been able to attend PT this week as she is not feeling well. She states she called the office and is scheduled to be seen on Sunday of next week. Per patient, does not feel that PT is effective. She reports taking tylenol for back pain with no effect. She also reports use of cold/ warm compresses with no effect. Per patient, is scheduled to f/u with [facility] on 12/10/24. Patient is aware of her scheduled US on 11/26 and denies any barriers to attending. Per patient, has not monitored her BP stating she forgets. CM recommended that she keep her BP monitor close to her daily vitamins/ meds as this may help her to remember to monitor. CM provided education and reinforced the importance in monitoring. CM recommended that she keep a log to review with CM at next call. Patient verbalizes understanding and states she will make an attempt. Patient reports receiving the food pantry list that was mailed out to her. She denies any further needs or concerns at this time. No further questions or concerns. CM reinforced direct contact information or CHW for any additional questions or concerns. Education provided on Walk-In Urgent Care located in [facility] of [facility]. Patient provided with after-hours line for [facility], , which offer night time triage service and option to transfer to communications planner provider if needed. Patient verbalizes understanding, and able to repeat back to business writer. A follow up call will be placed within 10 days, patientagrees with plan. documented in this encounter Plan of Treatment Upcoming Encounters Date Type Department Care Team (Late st Contact Info) Description 12/17/2024 9:45 AM EST Office Visit [facility] MEDICINE [address] [place], [place] [phone] Mikala Borges MD [address] [place] [address] documented as of this encounter Visit Diagnoses Not on filedocumented in this encounter Additional Health Concerns Assessment Noted Time PHQ-9 Depression Total Score: 6 08/12/20 24 1:10 PM EDT documented as of this encounter Care Teams Manager Integrated Relationship Specialty Start Date End Date Mikala Borges MD [address] [place] [address] PCP - General Family Medicine 10/29/18 Sherrie Etienne RN [address] [place] [address] Juvenile Justice OfficerStore Deli Manager 10/03/24 documented as of this encounter
--- OUTSIDE RECORDS SUMMARY | 2024-11-24 16:42 | XMS_ITS | Clinical Summary ---
Author Organization [facility] Address [address] [place] [address] [address] [place] [address] Care Team Providers Care Clinical Provider Trainer Name Role Phone Mikala Borges MD Primary Care Provider [phone] Sherrie Etienne RN Unavailable [phone] Allergies Active Allergy Reactions Criticality Noted Date Comments Citalopram 11/21/2013 Olanzapine Other reaction(s): unspecified Paroxetine 02/26/2014 Paroxetine Hcl 05/24/2022 Valproic Acid 11/21/2013 Medications acetaminophen (Tylenol 8 Hour) 650 MG ER tablet Take 1 tablet by mouth if needed. Active dicyclomine (Bentyl) 20 MG tablet Take 1 tablet by mouth every 6 (six) hours. 07/02/20 20 Active ibuprofen 600 MG tablet Take 1 tablet by mouth in the morning and 1 tablet at noon and 1 tablet in the evening. 04/25/20 22 Active linaCLOtide (Linzess) 72 MCG capsule Take 1 capsule by mouth. Active pantoprazole (ProtoNix) 40 MG EC tablet Take 1 tablet by mouth every 12 (twelve) hours. 07/18/20 22 Active Nurtec 75 MG tablet dispersible DISSOLVE 1 TABLET ON TONGUE THEN SWALLOW ONCE DAILY NEEDED 09/20/20 22 Active cetirizine (ZyrTEC) 10 MG tabletIndicatio ns:Allergic rhinitis due to other allergic trigger, unspecified seasonality TAKE 1 TABLET BY MOUTH EVERY DAY 90 tablet 1 01/02/20 23 Active tiZANidine (Zanaflex) 2 MG capsule Take 1-2 tablets by mouth every 8 hours as needed for muscle spasm 90 capsule 11 05/23/20 23 Active Diclofenac Sodium 1 % gel Apply 4 g topically if needed in the morning, at noon, in the evening, and at bedtime (pain). 100 g 10/26/20 23 Active traMADol (Ultram) 50 MG tabletIndicatio ns:Chronic bilateral low back pain with right-sided sciatica,Rn Long Term Care ior chest pain Take 1 tablet (50 mg) by mouth every 8 (eight) hours if needed for severe pain. 15 tablet 10/26/20 23 Active Advair HFA 230-21 MCG/ACT inhalerIndicati ons:Moderate persistent asthma without complication INHALE 2 PUFFS BY MOUTH TWICE DAILY IN THE MORNING AND IN THE EVENING RINSE MOUTH AFTER USING. 12 g 11 02/20/20 24 Active cholecalciferol (Vitamin D-3) 25 MCG tablet TAKE 1 TABLET BY MOUTH EVERY MORNING 90 tablet 3 04/14/20 24 Active meloxicam (Mobic) 7.5 MG tablet TAKE 1 TABLET BY MOUTH TWICE DAILY IN THE MORNING AND AT BEDTIME NEEDED FOR MODERATE PAIN 30 tablet 1 05/23/20 24 Active melatonin 3 MG tablet TAKE 1 TO 2 TABLETS BY MOUTH 2 HOURS BEFORE BEDTIME NEEDED FOR SLEEP 60 tablet 09/30/20 24 Active montelukast (Singulair) 10 MG tabletIndicatio ns:Moderate persistent asthma without complication TAKE 1 TABLET BY MOUTH EVERY EVENING 90 tablet 3 11/12/19 25 Active benzonatate (Tessalon Perles) 100 MG capsuleIndicati ons:Viral upper respiratory infection Take 1 capsule (100 mg) by mouth if needed in the morning, at noon, and at bedtime for cough for up to 7 days. Do not crush or chew. 20 capsule 11/21/19 25 025 Active Blood Pressure kit 1 each 2 times daily. 1 kit 11/24/19 25 026 Active albuterol 108 (90 Base) MCG/ACT inhaler Inhale 2 puffs every 4 (four) hours if needed for shortness of breath or wheezing. 18 g 3 11/24/19 25 Active predniSONE (Deltasone) 20 MG tablet Take 2 tablets (40 mg) by mouth Once per day for 5 days. 10 tablet 11/24/19 25 025 Active Spacer/Aero-Hol ding Chambers (OptiChamber Graciela) misc 1 each every 4 (four) hours if needed (asthma). 1 each 11/24/19 25 Active azithromycin (Zithromax Z-Garcia) 250 MG tablet Take 2 tablets once on day 1, then 1 tablet 1x/day for 4 days. 6 tablet 11/24/19 25 Active albuterol 108 (90 Base) MCG/ACT inhaler Inhale 2 puffs every 4 (four) hours if needed. 08/19/20 18 025 Discontinued(Re order (will not trigger notification to Pharmacy)) montelukast (Singulair) 10 MG tabletIndicatio ns:Moderate persistent asthma without complication TAKE 1 TABLET BY MOUTH EVERY EVENING 90 tablet 3 10/09/20 23 025 Discontinued Blood Pressure kit 1 each 2 times daily. 1 kit 10/26/20 23 024 Active Problems Problem Noted Date Diagnosed Date Viral upper respiratory infection 11/21/2024 Assessment & Plan (11/21/2024 9:23 AM EST): COVID, Flu and Strep negative. No evidence of respiratory distress. Symptoms mild. -No evidence of dehydration. -prescribed benzonatate (Tessalon Perles) 100 MG -Supportive care advised. Ill-fitting dentures 11/12/2024 Elevated BP without diagnosis of hypertension Assessment & Plan (08/12/2024 4:01 PM EDT): -Goal BP < 140/90 per JNC-8 and < 130/80 per ACC/AHA guideline (Treatment threshold >=140/90) -possibly due to pain -Continue working on lifestyle modifications -Recommended self-monitoring BP. -Follow up in 3-6 mo, sooner if any problem arises Assessment & Plan (04/16/2024 11:57 AM EDT): -Goal BP < 140/90 per JNC-8 and < 130/80 per ACC/AHA guideline (Treatment threshold >=140/90) -possibly due to pain -Continue working on lifestyle modifications -Recommended self-monitoring BP. -Follow up in 3-6 mo, sooner if any problem arises Chronic bilateral low back pain with right-sided sciatica 04/15/2024 Assessment & Plan (04/16/2024 11:51 AM EDT): -worsened hronic back pain - MRI 03/05/24 showed there is a bulging disc in conjunction with facet degenerative change at L5-S1 causing mild mass effect on both L5 foraminal nerve roots,greater on the right. Otherwise no substantial mass effect on the traversing or foraminal nerve roots elsewhere within the lumbar spine. No canal stenosis. - taking Naroxen with no significant relief - will prescribe Meloxicam - upcoming appointment with software engineering specialist - home back exercise as tolerated Vitamin D deficiency 01/22/2024 Dental caries 11/29/2023 Missing teeth, acquired 11/29/2023 Dental plaque 11/29/2023 Headache 08/11/2023 Assessment & Plan (08/11/2023 6:40 PM EDT): - following with neurologist - current Dx: Chronic headache; nummular headache - she has tried topiramate; valproic acid, doxepin for prophylaxis and has tried several different triptans - continue judicious use of analgesics Abdominal bloating 04/05/2023 Assessment & Plan (04/16/2024 11:51 AM EDT): Seen by GI in March 2024 -prescribed Metoclopramide and Dicyclomine -been stable on these medications -follow-up with GI as needed Assessment & Plan (04/05/2023 1:33 PM EDT): Seen by GI on 03/22/23 -prescribed Reglan Prediabetes 10/22/2022 Assessment & Plan (08/12/2024 4:01 PM EDT): -Hgb A1C > 5.9% since 2019 -07/12/22 A1C 6.2% -Pt has been receiving multiple steroid injection for pain management -Continue working on lifestyle modifications -Diabetes screen q6-12 mo. Assessment & Plan (02/04/2024 8:48 AM EDT): -Hgb A1C > 5.9% since 2019 -07/12/22 A1C 6.2% -Pt has been receiving multiple steroid injection for pain management -Continue working on lifestyle modifications -Diabetes screen q6-12 mo. Assessment & Plan (08/11/2023 6:45 PM EDT): -Hgb A1C > 5.9% since 2019 -07/12/22 A1C 6.2% -Pt has been receiving multiple steroid injection for pain management -Continue working on lifestyle modifications -Diabetes screen q6-12 mo. Assessment & Plan (04/16/2023 12:43 PM EDT): -Hgb A1C > 5.9% since 2019 -07/12/22 A1C 6.2% -Pt has been receiving multiple steroid injection for pain management -Continue working on lifestyle modifications -Diabetes screen q6-12 mo. Assessment & Plan (10/22/2022 6:45 AM EST): -Hgb A1C > 5.9% since 2019 -07/12/22 A1C 6.2% -Pt has been receiving multiple steroid injection for pain management -Continue working on lifestyle modifications -Diabetes screen q6-12 mo. Chronic bilateral low back pain without sciatica 10/17/2022 Assessment & Plan (04/15/2024 12:00 PM EDT): -[place] [facility] [place] 2020 at [facility]: Only very minimal degenerative changes, without significant change from 11/21/2016. There is no canal stenosis or evidence of nerve root impingement. -Treatment Hx: TENS, MBB, and muscle relaxants; peripheral nerve stimulation Sprint system in Sep 2022 - Oct 2022, removed due to ineffectiveness. Tried again in Oct- Nov 2023, and removed due to ineffectiveness -continue APAP prn; judicious use of NSAIDs prn; adding baclofen prn Assessment & Plan (02/04/2024 8:49 AM EDT): -Follow[place] management [place] [facility] [place] 2020 at [facility]: Only very minimal degenerative changes, without significant change from 11/21/2016. There is no canal stenosis or evidence of nerve root impingement. -Treatment Hx: TENS, MBB, and muscle relaxants; peripheral nerve stimulation Sprint system in Sep 2022 - Oct 2022, removed due to ineffectiveness. Tried again in Oct- Nov 2023, and removed due to ineffectiveness -continue APAP prn; judicious use of NSAIDs prn; adding baclofen prn Assessment & Plan (08/11/2023 6:46 PM EDT): -Followed by pain management [place] [facility] [place]Treatment Hx: TENS, MBB, and muscle relaxants; peripheral nerve stimulation Sprint system in Sep 2022 - Oct 2022, removed due to ineffectiveness -continue APAP prn; judicious use of NSAIDs prn; adding baclofen prn Assessment & Plan (04/16/2023 12:45 PM EDT): -Followed by [place] management [place] [facility] [place]Treatment Hx: TENS, MBB, and muscle relaxants; peripheral nerve stimulation Sprint system in Sep 2022 - Oct 2022, removed due to ineffectiveness -continue APAP prn; judicious use of NSAIDs prn; adding baclofen prn Assessment & Plan (10/22/2022 6:31 AM EST): -Followed by [place] management [place] [facility] [place]Treatment Hx: TENS, MBB, and muscle relaxants -s/p implantation of peripheral nerve stimulation Sprint system Contact dermatitis 09/29/2022 Rash 09/29/2022 History of renal calculi 09/29/2022 Status post laparoscopic appendectomy 09/29/2022 Chronic pain 09/20/2015 Difficulty sleeping 02/02/2015 Assessment & Plan (04/16/2024 11:49 AM EDT): -will prescribe low dose Melatonin to take 2 hours before desired bedtime Irritable bowel syndrome 11/03/2014 Assessment & Plan (08/12/2024 4:01 PM EDT): Last seen by GI in April 2023 - s/p colonoscopy on 05/02/23, wnl -Continue dicyclomine prn -Continue linaclotide Assessment & Plan (04/16/2024 11:47 AM EDT): Last seen by GI in April 2023 - s/p colonoscopy on 05/02/23, wnl -Continue dicyclomine prn -Continue linaclotide Assessment & Plan (08/11/2023 6:41 PM EDT): Last seen by GI in April 2023 - s/p colonoscopy on 05/02/23, wnl -Continue dicyclomine prn -Continue linaclotide Assessment & Plan (04/05/2023 1:20 PM EDT): Last seen by GI on 03/22/23 -Continue dicyclomine prn -Continue linaclotide Assessment & Plan (10/22/2022 6:33 AM EST): -Continue dicyclomine prn -Continue linaclotide Carpal tunnel syndrome 06/17/2014 Trochanteric bursitis 06/17/2014 Assessment & Plan (08/12/2024 4:01 PM EDT): Patient is not interested in steroid injections as this time and recommended to try Home-Stretching exercises Assessment & Plan (04/05/2023 1:13 PM EDT): Patient is not interested in steroid injections as this time and recommended to try Home-Stretching exercises Eczema 05/14/2013 Assessment & Plan (08/11/2023 6:45 PM EDT): -[place] moisturization with Eucerin or Cetaphil. -Use unscented, hypoallergenic skin care products. -Judicious use of topical steroid cream in moderate-severe areas of eczema. -avoid irritants -keep nails short Assessment & Plan (04/05/2023 1:32 PM EDT): -[place] moisturization with Eucerin or Cetaphil. -Use unscented, hypoallergenic skin care products. -Judicious use of topical steroid cream in moderate-severe areas of eczema. -avoid irritants -keep nails short Chronic urticaria 02/26/2013 Recurrent kidney stones 02/26/2013 Assessment & Plan (08/12/2024 4:01 PM EDT): -Following with [facility], last seen in March 2024 -Most recent kidney stone episode Nov 2022, seen in ED. CT showed b/l hydronephrosis and 3 mm stone on the left -s/p cystoscopy / ureteroscopy om Nov 2022 and stent removal in December 2022 -Last imaging: US on 03/22/23, Hydronephrosis resolved, no stone present. -continue adequate water intake -follow-up with Urologist as scheduled Assessment & Plan (04/16/2024 11:55 AM EDT): -Following with [facility], last seen in March 2024 -Most recent kidney stone episode Nov 2022, seen in ED. CT showed b/l hydronephrosis and 3 mm stone on the left -s/p cystoscopy / ureteroscopy om Nov 2022 and stent removal in December 2022 -Last imaging: US on 03/22/23, Hydronephrosis resolved, no stone present. -continue adequate water intake -follow-up with Urologist as scheduled Assessment & Plan (08/11/2023 6:42 PM EDT): -Following with [facility], last seen in March 2023 -Most recent kidney stone episode Nov 2022, seen in ED. CT showed b/l hydronephrosis and 3 mm stone on the left -s/p cystoscopy / ureteroscopy om Nov 2022 and stent removal in December 2022 -Last imaging: US on 03/22/23, Hydronephrosis resolved, no stone present. -continue adequate water intake -follow-up with Urologist as scheduled Assessment & Plan (04/16/2023 12:42 PM EDT): -Following with [facility] -Most recent kidney stone episode Nov 2022, seen in ED. CT showed b/l hydronephrosis and 3 mm stone on the left -s/p cystoscopy / ureteroscopy om Nov 2022 and stent removal in December 2022 -Last imaging: US on 03/22/23, Hydronephrosis resolved, no stone present. -continue adequate water intake -follow-up with Urologist as scheduled Assessment & Plan (10/22/2022 6:29 AM EST): -Followed by urologist -Last US on 06/21/22 showed left renal calculus, no hydronephrosis -Continue adequate water intake Allergic rhinitis 06/26/2012 Assessment & Plan (08/11/2023 6:46 PM EDT): -Continue cetirizine, montelukast, and fluticasone nasal -last acute sinusitis in Jun 2022, treated with Augmentin Assessment & Plan (10/22/2022 6:40 AM EST): -Continue cetirizine, montelukast, and fluticasone nasal -last acute sinusitis in Jun 2022, treated with Augmentin Asthma 06/26/2012 Assessment & Plan (08/12/2024 4:00 PM EDT): -Most recent exacerbation, ED visit, and prednisone Tx in Oct 2017. -2 exacerbations per year -Trigger includes cold air. -Continue Advair HFA -Continue Singulair qhs -Continue albuterol HFA prn Assessment & Plan (04/15/2024 12:08 PM EDT): -Most recent exacerbation, ED visit, and prednisone Tx in Oct 2017. -2 exacerbations per year -Trigger includes cold air. -Continue Advair HFA -Continue Singulair qhs -Continue albuterol HFA prn Assessment & Plan (02/04/2024 8:47 AM EDT): -Most recent exacerbation, ED visit, and prednisone Tx in Oct 2017. -2 exacerbations per year -Trigger includes cold air. -Continue Advair HFA -Continue Singulair qhs -Continue albuterol HFA prn Assessment & Plan (08/11/2023 6:41 PM EDT): -Most recent exacerbation, ED visit, and prednisone Tx in Oct 2017. -2 exacerbations per year -Trigger includes cold air. -Continue Advair HFA -Continue Singulair qhs -Continue albuterol HFA prn Assessment & Plan (04/05/2023 1:30 PM EDT): -Most recent exacerbation, ED visit, and prednisone Tx in Oct 2017. -2 exacerbations per year -Trigger includes cold air. -Continue Advair HFA -Continue Singulair qhs -Continue albuterol HFA prn Assessment & Plan (10/22/2022 6:35 AM EST): -Most recent exacerbation, ED visit, and prednisone Tx in Oct 2017. -2 exacerbations per year -Trigger includes cold air. 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 Pt has tried cyclobenzaprine, Methocarbamol, and baclofen. -Judicious use of NSAIDs and APAP Assessment & Plan (04/16/2024 11:56 AM EDT): -Followed by facilities painter -currently taking: Tizanidine. Pt has tried cyclobenzaprine, Methocarbamol, and baclofen. -Judicious use of NSAIDs and APAP Assessment & Plan (02/04/2024 8:47 AM EDT): -Followed by facilities painter -currently taking: Tizanidine. Pt has tried cyclobenzaprine, Methocarbamol, and baclofen. -Judicious use of NSAIDs and APAP Assessment & Plan (08/11/2023 6:45 PM EDT): -Followed by facilities painter -currently taking: Tizanidine. Pt has tried cyclobenzaprine, Methocarbamol, and baclofen. -Judicious use of NSAIDs and APAP Assessment & Plan (04/05/2023 1:12 PM EDT): -Followed by facilities painter -currently taking: Flexeril 10 mg at bedtime. Pt has tried Tizanidine and Methocarbamol. We agreed to try different muscle relaxants. -will try Baclofen 25 mg at bedtime, as needed -Judicious use of NSAIDs and APAP -Continue spinal stimulator Sprint. Assessment & Plan (10/22/2022 6:28 AM EST): -Followed by facilities painter -She has tried amitriptyline, topiramate (for headache) muscle relaxants, NSAIDs, APAP, and is currently taking doxepine for SUMMERS and insomnia -Reconcile muscle relaxants (she has been prescribed methacarbamol, cyclobenzaprine, and tizanidine). -Judicious use of NSAIDs and APAP -Continue spinal stimulator Sprint. Gastroesophageal reflux disease without esophagi tis 06/26/2012 Assessment & Plan (04/16/2024 11:49 AM EDT): -Followed by [facility], last seen in March 2024 -Continue pantoprazole Assessment & Plan (02/04/2024 8:47 AM EDT): -Followed by [facility], last seen on 03/22/23 -Continue pantoprazole Assessment & Plan (08/11/2023 6:41 PM EDT): -Followed by [facility], last seen on 03/22/23 -Continue pantoprazole Assessment & Plan (04/05/2023 1:19 PM EDT): -Followed by [facility], last seen on 03/22/23 -Continue pantoprazole Assessment & Plan (10/22/2022 6:32 AM EST): -Followed by [facility], last seen on 08/15/22 -Continue pantoprazole Migraine with aura and witho ut status migrainosus, not intractable 06/26/2012 Assessment & Plan (08/11/2023 6:46 PM EDT): -Followed by neurologist, Dr. Morgan, last seen on 08/21/22 -MRI normal -Frequency approximately 9 times per month, each episode lasting 2-3 days -Treatment history: Tried sumatriptan, naratriptan, topiramate, doxepine, valproic aicd -Current medication: rimegepant (Nurtec) 75 mg every other day -Pt perceives that it is to be taken for acute treatment, not for prevention. Will confirm with neurologist. Assessment & Plan (04/05/2023 1:32 PM EDT): -Followed by neurologist, Dr. Morgan, last seen on 08/21/22 -MRI normal -Frequency approximately 9 times per month, each episode lasting 2-3 days -Treatment history: Tried sumatriptan, naratriptan, topiramate, doxepine, valproic aicd -Current medication: rimegepant (Nurtec) 75 mg every other day -Pt perceives that it is to be taken for acute treatment, not for prevention. Will confirm with neurologist. Assessment & Plan (10/22/2022 6:25 AM EST): -Followed by neurologist, Dr. Morgan, last seen on 08/21/22 -MRI normal -Frequency approximately 9 times per month, each episode lasting 2-3 days -Treatment history: Tried sumatriptan, naratriptan, topiramate, doxepine, valproic aicd -Current medication: rimegepant (Nurtec) 75 mg every other day -Pt perceives that it is to be taken for acute treatment, not for prevention. Will confirm with neurologist. Obesity 05/24/2012 Assessment & Plan (08/12/2024 4:01 PM EDT): -07/12/22 HgbA1C 6.2% -07/12/22 Lipid profile: TC 206, TG 106; HDL l50; LDL 135 -Continue working on lifestyle modifications Assessment & Plan (10/22/2022 6:43 AM EST): -07/12/22 HgbA1C 6.2% -07/12/22 Lipid profile: TC 206, TG 106; HDL l50; LDL 135 -Continue working on lifestyle modifications Resolved Problems Problem Noted Date Diagnosed Date Resolved Date Acute maxillary sinusitis 09/29/2022 Encounters Date Type Department Care Team Description 11/24/2024 10:00 AM EST Office Visit [facility] [address] [phone] Kevin Flores MD Mild persistent asthma with acute exacerbation (Primary Dx); Elevated BP without diagnosis of hypertension 11/21/2024 9:00 AM EST [facility] [address] [address] Nereyda Hawk MD Viral upper respiratory infection (Primary Dx) 11/20/2024 Patient Outreach [address] [address] Miklaa Borges MD Care Coordination (SDOH) 11/20/[address] [address] Sherrie Etienne RN Care Management (C3CM- f/u call) 11/13/2024 Patient Outreach [address] [address] Mikala Borges MD Care Coordination (SDOH) 11/12/2024 9:00 AM EST Office Visit [facility] [address] [place] [id number] Adebayo Pelayo DDS Ill-fitting dentures (Primary Dx) 11/12/[address] [address] Mikala Borges MD Moderate persistent asthma without complication 11/10/2024 3:30 PM EST Office Visit [facility] [address] [place] [id number] Deuce Baird DMD 11/10/[address] [phone] Sherrie Etienne RN Care Management (C3CM- f/u call) 11/04/2024 11:15 AM EST Office Visit [address] [address] Joy Lynch CNM Pelvic pain (Primary Dx); Breast pain 11/04/2024 Travel 10/31/[address] [address] Sherrie Etienne RN Care Management (C3CM- f/u call) 10/30/[address] [address] Sherrie Etienne RN 10/24/2024 Patient Outreach [address] [address] Mikala Borges MD Care Coordination (SDOH) 10/16/[address] [address] Sherrie Etienne RN Care Management (C3CM- f/u call) 10/03/[address] [address] Sherrie Etienne RN Care Management (C3- initial assessment/ enrollment) 10/02/2024 Patient Outreach [address] [address] Mikala Borges MD Care Coordination (CM/CHW appt reminder) 10/01/2024 Patient Outreach [address] [address] Mikala Borges MD Care Coordination (CM/CHW outreach) 10/01/[address] [phone] Sherrie Etienne RN Care Management (C3- chart review) 09/30/2024 Orders Only GENERIC EXTERNAL DATA DEPARTMENT Provider, Generic External Data 09/29/[address] [address] Mikala Borges MD 09/06/2024 12:20 PM EST Office Visit [facility] [address] [address] Jersey Gómez MD Lower abdominal pain (Primary Dx) 09/05/2024 Telephone [facility] [address] [place] [address] Mikala Borges MD Nurse Triage from Last 3 Months Immunizations Name Administration Dates Next Due Influenza injectable quadrivalent preservative f ree 08/24/2021,11/06/2018 Influenza, High Dose Seasonal, Preservative Free 10/17/2017 Influenza, IIV3, injectable 07/13/2011, 9 Influenza, Split (incl. purified surface antigen ) 07/09/2013,06/26/2012 Influenza, seasonal, injectable, preservative fr ee 08/12/2024 Moderna Covid-19 Vaccine 12+ 03/30/2021,03/02/20 21 Pneumococcal Conjugate PCV 20 08/12/2024 TD (adult), 2 Lf tetanus tox oid, preservative free, adsorbed 08/24/2021,09/23/2001 Tdap 07/13/2011 Zoster, Recombinant 06/19/2022 Family History Medical History Relation Name Comments Colon cancer Father Diabetes Mother Breast cancer Sister Relation Name Status Comments Father Mother Sister Social History Tobacco Use Types Packs/Day Years [...] Orientation Straight 08/28/2022 10 :16 AM EDT Last Filed Vital Signs Vital Sign Reading [...] oz) 11/24/2024 10:50 A M EST Height 167.6 cm (5' 6 ) 11/21/2024 8:53 AM EST Body Mass Index 38.61 11/21/2024 8:53 AM EST Plan of Treatment Upcoming Encounters Date Type Department Care Team (Late st Contact Info) Description 12/17/2024 9:45 AM EST Office Visit [facility] [address] [place] [address] Mikala Borges MD [address] [place] [address] Health Maintenance Due Date Last Done Comments CT Colonography 1972 FIT DNA/Cologuard 1972 FIT 1972 FOBT 1972 Sigmoidoscopy 1972 Family Planning (PISQ) 1987 Hepatitis B Vaccines (1 of 3 - 19+ 3-dose series) 1991 Zoster Vaccines (2 of 2) 08/14/2022 06/19/2022 Mammogram 08/02/2023 08/02/2021, 02/26/2018 Dental Oral Exam 05/30/2024 11/29/2023 Dental Prophylaxis 05/30/2024 11/29/2023 COVID-19 Vaccine ( season) 2024 03/30/2021, 03/02/2021 Dental X-Ray: [facility] 11/30/2024 11/29/2023 Alcohol/Substance Use Screening 01/21/2025 01/22/2024 Diabetes: Hemoglobin A1C 01/21/2025 024, 04/05/2023, 07/12/2022, Additional history exists Depression Screening 08/12/2025 08/12/2024, 08/12/20 24 SDOH Screening 10/24/2025 10/24/2024 Tobacco Screening 11/24/2025 11/24/2024 Dental X-Ray: Full Mouth 11/30/2026 11/29/2023 Lipid Panel 01/21/2029 01/22/2024, 06/0 05/2023, 07/12/2022, Additional history exists DTaP/Tdap/Td Vaccines (3 - Td or Tdap) 08/24/2031 08/24/2021, 07/13/2011, 09/23/2001 Colonoscopy 05/02/2033 05/02/2023 Colorectal Cancer Screening 05/02/2033 RSV Patients and Patients Aged 60 years or older (1 - 1-dose 75+ series) 2047 Influenza Vaccine Completed 08/12/2024, , 11/06/2018, Additional history exists Pneumococcal Vaccine: Pediatrics (0 to 5 Years) and At-Risk Patients (6 to 64 Years) Completed 08/12/2024 HIB Vaccines Aged Out No longer eligi ble based on patient's age to complete this topic HIV Screening Discontinued HPV Vaccines Aged Out No longer eligi ble based on patient's age to complete this topic Hepatitis A Vaccines Aged Out No long er eligible based on patient's age to complete this topic Hepatitis C Screening Discontinued IPV Vaccines Aged Out No longer eligi ble based on patient's age to complete this topic Meningococcal Vaccine Aged Out No celena lesley eligible based on patient's age to complete this topic RSV under 20 months Aged Out No longe r eligible based on patient's age to complete this topic Rotavirus Vaccines Aged Out No longer eligible based on patient's age to complete this topic Procedures Procedure Name Priority Date/Time Associated Diagnosis Comments XR CHEST 2 VIEWS Routine 11/24/2024 11:5 2 AM EST Mild persistent asthma with acute exacerbation POCT RAPID STREP A Routine 11/21/2024 9: 28 AM EST Viral upper respiratory infection POCT RAPID COVID ANTIGEN Routine 11/21/2024 9:28 AM EST Viral upper respiratory infection POCT INFLUENZA B (ID NOW RAPID MOLECULAR) Routine 11/21/2024 9:28 AM EST Viral upper respiratory infection POCT INFLUENZA A (ID NOW RAPID MOLECULAR) Routine 11/21/2024 9:28 AM EST Viral upper respiratory infection ADJUNCTIVE GENERAL SERVICES - PROFESSIONAL VISITS - CASE PRESENTATION, SUBSEQUENT TO DETAILED AND EXTENSIVE TREATMENT PLANNING Routine 11/12/2024 9:00 AM EST 8 ADD TOOTH TO EXISTING PARTIAL DENTURE Routine 11/12/2024 9:00 AM EST PROSTHODONTICS (REMOVABLE) - REPAIRS TO PARTIAL DENTURES - REPAIR RESIN PARTIAL DENTURE BASE, MAXILLARY Routine 11/12/2024 9:00 AM EST NO CHARGE PROCEDURE Routine 11/10/2024 3 :30 PM EST LIPASE Routine 09/30/2024 10:12 PM EST COMPREHENSIVE METABOLIC PANEL Routine 09/30/2024 10:12 PM EST CBC WITH AUTO DIFFERENTIAL Routine 09/30/2024 10:12 PM EST HEMOGLOBIN A1C Routine 01/22/2024 1:30 PM EDT Prediabetes LIPID PANEL WITH REFLEX TO DIRECT LDL Routine 01/22/2024 1:30 PM EDT Prediabetes PROPHYLAXIS - ADULT Routine 11/29/2023 1 0:00 AM EST Dental plaque DIAGNOSTIC - DIAGNOSTIC IMAGING - INTRAORAL - COMPREHENSIVE SERIES OF RADIOGRAPHIC IMAGES Routine 11/29/2023 10:00 AM EST Dental caries Missing teeth, acquired Dental plaque PERIODIC ORAL EVALUATION - ESTABLISHED PATIENT Routine 11/29/2023 10:00 AM EST HM COLONOSCOPY Routine 05/02/2023 MAMMOGRAM GENERIC Routine 08/02/2021 4:3 0 PM EDT from Last 3 Months or Most Recently Relevant to Health Maintenance Results * XR Chest 2 Views (11/24/2024 11:52 AM EST) Anatomical Region Laterality Modality Chest Radiographic Winnie ging 11/24/2024 11:5 2 AM EST Narrative 11/24/2024 12:54 PM EST ?[facility] ?[address] ?[place] [address] ?XRay Report ? Signed ? Patient: Carmelina Etienne ?MR#: [id number] ?? [id number] ? : 1970 ?Acct:[id number] ? Age/Sex: 54 / F ?ADM Date: 11/24/24 ? Loc: HO.HHCX ? Attending Dr: Kevin Flores MD ? Ordering Physician: KEVIN FLORES MD ?? Date of Service: 11/24/24 ?? Procedure(s): XR chest 2V ?? Accession Number(s): [id number] ? cc: KEVIN FLORES MD ? EXAMINATION: [...] DD/ 1152 ? TD/TT: 11/24/24 1200 ? Leather Skinner: ? Procedure Note Donotuseinterpreter, Image - 11/24/2024 [facility] [address] [place] [address] XRay Report Signed Patient: Carmelina Etienne EMR#: [id number] : 1970Acct:[id number] Age/Sex: 54 / FADM Date: 11/24/24 Loc: HO.HHCX Attending Dr: Kevin Flores MD Ordering Physician: KEVIN FLORES MD Date of Service: 11/24/24 Procedure(s): XR chest 2V Accession Number(s): [id number] cc: KEVIN FLORES MD EXAMINATION: XR CHEST [...] 11/24/24 1252 DD/ 1152 TD/TT: 11/24/24 1200 Leather Skinner: Kevin Flores MD IMG XR PROCEDURES Final Result * Influenza B (ID NOW Rapid Molecular) (11/21/2024 9:28 AM EST) Influenza B Negative Negative, Indeterminate [facility] Swab 11/21/2024 9:28 AM EST us Nereyda Hawk MD POINT OF CARE TEST ENTER/E DIT ORDERABLES Final Result Performing Organization Address City/[facility]/ZIP Co de Phone Number [facility] [address] [place] [phone] * Influenza A (ID NOW Rapid Molecular) (11/21/2024 9:28 AM EST) [facility] Influenza A Negative Negative, Indeterminate [facility] Swab 11/21/2024 9:28 AM EST us Nereyda Hawk MD POINT OF CARE TEST ENTER/E DIT ORDERABLES Final Result Performing Organization Address City/[facility]/ZIP Co de Phone Number [facility] [address] [place] [phone] * POCT Rapid COVID Ag (11/21/2024 9:28 AM EST) [facility] Rapid COVID Ag Negative Swab 11/21/2024 9:28 AM EST us Nereyda Hawk MD POINT OF CARE TEST ENTER/E DIT ORDERABLES Final Result * POCT rapid strep A manually resulted (11/21/2024 9:28 AM EST) [facility] Rapid Strep A Screen Negative Negative, None Detected Swab 11/21/2024 9:28 AM EST us Nereyda Hawk MD POINT OF CARE TEST ENTER/E DIT ORDERABLES Final Result * (ABNORMAL) CBC auto differential (09/30/2024 10:12 PM EST) [facility] White Blood Count 8.5 4.8 - 10.8 X10*3/uL [facility] Red Blood Count 4.47 4.20 - 5.50 X10*6/uL [facility] Hemoglobin 12.2 12.0 - 16.0 g/dl [facility] Hematocrit 37.8 37.0 - 47.0 % [facility] Mean Corpuscular Volume 84.6 80.0 - 98.0 fL [facility] Mean Corpuscular Hemoglobin 27.3 27.0 - 33.0 pg [facility] Mean Corpuscular HGB Conc 32.3 31.0 - 35.0 g/dl [facility] Red Cell Distribution Width 13.6 11.0 - 16.0 % [facility] Platelet Count 306 160 - 400 X10*3/uL [facility] Mean Platelet Volume 8.3(L) 9.4 - 12.3 fL [facility] Neutrophils Percent Auto 51.1 45 - 73 % [facility] Imm Gran Pct Auto 0.1 0.0 - 0.4 % [facility] Lymphocytes Percent Auto 38.6 20 - 40 % [facility] Monocytes Percent Auto 7.3 2 - 11 % [facility] Eosinophils Percent Auto 2.5 0 - 4 % [facility] Basophils Percent Auto 0.4 0 - 2 % [facility] NRBC Pct Auto 0.0 0.0 - 0.2 /100WBC [facility] Neutrophils Absolute Auto 4.3 2.0 - 8.3 x10*3/uL [facility] Imm Gran Abs Auto 0.01 0.00 - 0.03 X10*3/uL [facility] Lymphocytes Absolute Auto 3.3 1.2 - 4.9 X10*3/uL [facility] Monocytes Absolute Auto 0.6 0.1 - 1.2 X10*3/uL [facility] Eosinophils Absolute Auto 0.2 0.0 - 0.4 X10*3/uL [facility] Basophils Absolute Auto 0.0 0.0 - 0.2 X10*3/uL [facility] NRBC Abs Auto 0.000 0.0 - 0.012 X10*3/uL [facility] 09/30/2024 10:1 2 PM EST 09/30/2024 10:15 PM EST us Generic External Data Provider LAB BLOOD ORDERAB LES Final Result Performing Organization Address City/[facility]/ZIP Co de Phone Number [facility] [address] [place] [phone] * Lipase (09/30/2024 10:12 PM EST) Lipase 14 8 - 78 U/L [facility] 09/30/2024 10:1 2 PM EST 09/30/2024 10:15 PM EST us Generic External Data Provider LAB BLOOD ORDERAB LES Final Result Performing Organization Address [facility] Co de Phone Number [facility] [address] [place] [phone] * Comprehensive Metabolic Panel (09/30/2024 10:12 PM EST) Sodium 142 135 - 145 mmol/L [facility] Potassium 3.7 3.3 - 5.1 mmol/L [facility] Chloride 105 96 - 108 mmol/L [facility] Carbon Dioxide 29 22 - 29 mmol/L [facility] Anion Gap 12 12 - 20 [facility] Urea Nitrogen (BUN) 10 9 - 16 mg/dL [facility] Creatinine, Serum 0.90 0.5 - 1.4 mg/dL [facility] Creatinine Clr Calc Pharmacy 90.9 [facility] Comment:Provided height and weight: 167.64 cm,107.9 kg.eGFR (calculated from the MDRD study equation) and eCrCl(calculated from the Cockcroft-Gault equation) are based ondifferent parameters and may not yield comparable results.If eCrCl result is absurd, please check patient'sheight/weight. Estimated Glomerular Filt Rate >60 [facility] Comment:Chronic Kidney Disea se: Estimated GFR < 60 mL/min/[id number] Kidney Disease: Estimated GFR < 15 mL/min/1.73m2 Glucose 104 60 - 115 mg/dL [facility] Calcium 9.7 8.4 - 10.2 mg/dL [facility] Bilirubin, Total 0.3 0.0 - 1.0 mg/dL [facility] Aspartate Amino Transferase 29 5 - 31 U/L [facility] Alanine Aminotransferase 28 0 - 31 U/L [facility] Total Protein 7.8 6.5 - 8.0 g/dL [facility] Albumin Level 4.3 3.5 - 5.0 g/dL [facility] Alkaline Phosphatase 84 39 - 117 U/L [facility] 09/30/2024 10:1 2 PM EST 09/30/2024 10:15 PM EST us Generic External Data Provider LAB BLOOD ORDERAB LES Final Result [facility] [address] [place] [phone] * (ABNORMAL) Lipid Panel with Reflex to Direct LDL (01/22/2024 1:30 PM EDT) Triglycerides 109 <150 mg/dL [facility] Comment:Desirable Triglyceri de: less than 150 mg/dLBorderline High Triglyceride 150-199 mg/dLHigh Triglyceride: 200-499 mg/dLVery High Triglyceride: greater than or equal to 5OO mg/dL Cholesterol 230(H) <200 mg/dL [facility] Comment:Desirable Cholestero l: less than 200 mg/dLBorderline High Cholesterol: 200-239 mg/dLHigh Cholesterol: greater than 239 mg/dL LDL Cholesterol Calculated 153(H) <100 mg/dL [facility] Comment:Desirable LDL: less than 100 mg/dLNear Optimal/Above Optimal LDL: 110- 129 mg/dLBorderline High LDL: 130-159 mg/dLHigh LDL: 160-189 mg/dLVery High LDL: greater than or equal to 190 mg/dL HDL Cholesterol 56 >40 mg/dL [facility] Comment:Desirable HDL: great er than 40 mg/dL Note: This HDL assay may give artificially low results in patients with liver disease. Blood 01/22/2024 1:30 PM EDT 01/22/2024 4:15 PM EDT Mikala Borges MD LAB BLOOD ORDERABLES Final Resul t Performing Organization Address [facility] de Phone Number [facility] [address] [place] [phone] * Hemoglobin A1c (01/22/2024 1:30 PM EDT) Hemoglobin A1c 6.0 <6.0 % [facility] Comment:Hemoglobin A1C Refer ence Range Adults: 4.8 - 6.0 % Non diabetic: < 6.0 % Goal: < 7.0 %Additional Action Suggested: > 8.0 %Note: Hemoglobin A1c results are invalid for patients with abnormal amounts of HbF. Blood transfusions may impact the HbA1c concentration in the patient sample. Estimated Average Glucose 126 mg/dL [facility] Comment:eAG = Estimated ave rage glucose which is %A1C expressed asaverage glucose, using the formula of the L8R-VcxdjpyDjebein Glucose study (ADAG), Diabetes Care, Vol.31,#8,May. 2007 Blood Venous blood specimen / Unknown 01/22/2024 1:30 PM EDT 01/22/2024 4:15 PM EDT Mikala Borges MD LAB BLOOD ORDERABLES Final Resul t Performing Organization Address [facility] Co de Phone Number [facility] [address] [place] [phone] * Hm Colonoscopy (05/02/2023) Colonoscopy Normal Normal Lisa Sanchez MD HEALTH MAINTENANCE Final Result * Mammography Report 1 (08/02/2021 4:30 PM EDT) Anatomical Region Laterality Modality Breast Bilateral Mammography 08/02/2021 4:30 PM EDT Narrative 08/04/2021 9:02 AM EDT Refer to the Notes tab for result details [facility] Procedure: Mammography Report 1 Procedure Note Provider, MD Bessy - 01/21/2023 Refer to the Notes tab for result details [facility] Procedure: Mammography Report 1 Len Valdivia MD IMG BI PROCEDURES Final Result from Last 3 Months or Most Recently Relevant to Health Maintenance Insurance [place] [address] [id number] [facility] MED[facility]ID STAND ADULT Care Teams Clinical Provider Trainer Relationship Specialty Start Date End Date Mikala Borges MD [address] [place] [phone] PCP - General Family Medicine 10/29/18 Sherrie Etienne RN [address] [place] [phone] Middleware EngineerCapital Markets Specialist 10/03/24
== END 2024-11-24 11:52 | disposition home or self-care (01) ==
LOC: HO.HHCX 11:51
PROVIDERS: Visit Provider Emergency Medicine
DX: J45.31 Mild persistent asthma with (acute) exacerbation (principal)
CPT/HCPCS: 71046

== ENCOUNTER → 2024-11-24 11:52 | Outpatient (BNV) | payer MEDICAID, SELFPAY | PROVIDERS: Visit Provider Radiology Diagnostic Radiology | DX: R05.9 Cough, unspecified (principal); R50.9 Fever, unspecified | CPT/HCPCS: 71046 ==

== ENCOUNTER 2024-11-30 01:09 | Emergency (ER) | payer MEDICAID, SELFPAY ==
--- NOTE | ~2024-11-30 | XR_ITS ---
CLINICAL HISTORY: l. knee swelling pain 2 view left knee Comparison: DX/SR - XR KNEE LT 2V - 11/16/23 10:37 EST Findings: No acute fractures or dislocations. The left suprapatellar soft tissues are incompletely included on the lateral image. A left suprapatellar effusion is not excluded on this examination. No radiopaque foreign body. IMPRESSION: 1. No acute fracture or dislocation injury identified at the left knee. 2. Left suprapatellar effusion not excluded on this exam. This document has been electronically signed by: Cali Davison MD on 11/30/2024 04:00:23
[2024-11-30 01:30] VITALS: BP 139/46; PULSE 89; RESP 16; TEMP 36.8; O2SAT 98; BMI 38.1
[2024-11-30 06:44] VITALS: BP 119/72; PULSE 67; RESP 18; TEMP 36.8; O2SAT 98
[2024-11-30] MEDS: Ketorolac Tromethamine 30 MG/ML VIAL IM (07:09)
--- NOTE | 2024-11-30 07:11 | PC.NURSE ---
medication administered per provider order. effectiveness pending. josiah wrap applied to LLE.
[2024-11-30 07:15] VITALS: BP 119/72; PULSE 67; RESP 18; TEMP 36.8; O2SAT 98
--- NOTE | 2024-11-30 07:20 | ED.GENADULT ---
HPI - General Adult General Chief complaint: Extremity Problem Stated complaint: left side knee pain Time Seen by Provider: 11/30/24 06:59 Source: patient Mode of arrival: ambulatory Limitations: no limitations History of Present Illness ED Provider: BENEDICTO Edwards HPI narrative: This is a 54-year-old female past medical history significant for obesity, GERD, pelvic pain, facet arthropathy, presenting to the emergency department with complaints of left knee pain ongoing for the past 2 days. She reports this pain started suddenly and it is worse with range of motion, weight-bearing activities and better at rest. She reports this started after doing lumbar physical therapy she is not sure if she made a weird movement however since then she has been uncomfortable. The pain is predominantly to the anterior aspect of knee but at times goes to the back of the knee she describes it as sharp pain. She has been taking Tylenol with little to no relief. Has not had issues with her left knee in the past. She denies numbness, tingling, calf pain, fevers, chills, recent travel headache, vision changes, dizziness, chest pain, shortness of breath. Related Data Home Medications ?Medication ?Instructions ?Recorded ?Confirmed ondansetron HCl 4 mg tablet 4 mg PO Q6H 08/26/20 04/10/24 (Zofran) cetirizine 10 mg tablet 10 mg PO DAILY 06/17/21 04/10/24 cholecalciferol (vitamin D3) 25 25 mcg PO QAM 06/17/21 04/10/24 mcg (1,000 unit) tablet fluticasone propionate 230 2 puff inhalation BID 06/17/21 04/10/24 mcg-salmeterol 21 mcg/actuation HFA inhaler (Advair HFA) montelukast 10 mg tablet 10 mg PO QPM 06/17/21 04/10/24 vitamin B complex (B 1 tab PO DAILY 11/29/22 04/10/24 Complex-Vitamin B12 tablet) rimegepant 75 mg disintegrating 75 mg PO ONCE PRN Migraine Headache 12/12/22 04/10/24 tablet (Nurtec ODT) Previous Rx's ?Medication ?Instructions ?Recorded lidocaine 5 % topical patch 1 patch topical DAILY #30 ea 06/23/23 (Lidoderm) naproxen 500 mg tablet 500 mg PO BID PRN pain #30 tabs 06/23/23 metoclopramide HCl 5 mg tablet See Rx Instructions PO QIDACHS 04/03/24 (Reglan) #150 tabs prednisone 20 mg tablet See Rx Instructions PO DAILY #4 04/03/24 tabs pyridoxine (vitamin B6) 100 mg 100 mg PO DAILY #90 tabs 04/10/24 tablet cyclobenzaprine 10 mg tablet 10 mg PO BEDTIME PRN muscle spasm 05/15/24 #7 tabs ketorolac 10 mg tablet 10 mg PO Q8H PRN pain 3 days #9 08/17/24 tabs ondansetron 4 mg disintegrating 4 mg PO Q6H PRN nausea and 08/17/24 tablet vomiting #12 tabs sucralfate 1 gram tablet 1 g PO TID #90 tabs 10/01/24 pantoprazole 40 mg tablet,delayed 40 mg PO BID #60 tabs 10/07/24 release dicyclomine 20 mg tablet 20 mg PO BID #60 tabs 11/06/24 linaclotide 72 mcg capsule 72 mcg PO QAM #30 caps 11/06/24 (Linzess) Allergies Allergy/AdvReac Type Severity Reaction Status Date / Time citalopram [From Celexa] AdvReac Mild ANXIETY Verified 11/30/24 01:34 divalproex sodium AdvReac Mild ANXIETY/JUM Verified 11/30/24 01:34 [From Depakote] PY olanzapine [From Zyprexa] AdvReac Mild ANXIETY Verified 11/30/24 01:34 paroxetine [From Paxil] AdvReac Mild ANXIETY Verified 11/30/24 01:34 Review of Systems Review of Systems: Yes all other systems are reviewed and are negative [facility] Past Medical History Attestation statement: The following information was validated with the patient. Source: old records reviewed and nursing notes reviewed Medical History Kidney stones Hydronephrosis Obstruction of left ureteropelvic junction (UPJ) due to stone Hematuria Left ureteral stone Low back pain Abdominal cramping Well woman exam Upper abdominal pain Osteoarthritis of right shoulder Migraines Low back pain Renal calculi GERD (gastroesophageal reflux disease) Surgical History Hx of cystoscopy History of surgery History of hernia repair History of hysterectomy History of appendectomy Hx of endoscopy History of colonoscopy Family History Family History Father History of colon cancer Mother History of diabetes mellitus Social History Social History Alcohol intake: never Patient Tobacco Use Status: Never used Tobacco Smoked in Last 30 Days: No Use of substances other than those prescribed or required for medical reasons: No Advance Directives: No Do you have a plan to hurt others: No Plan Sexual orientation: Straight/Heterosexual Gender identity: Female Physical Exam ED Vital Signs: Vital Signs - 24 hr 11/30/24 01:30 11/30/24 06:44 11/30/24 07:15 Temperature 98.3 F 98.2 F 98.2 F Pulse Rate 89 67 67 Respiratory Rate 16 18 18 Blood Pressure 139/46 L 119/72 119/72 Pulse Oximetry 98 98 98 Oxygen Delivery Method Room Air Room Air Room Air BMI result Body Mass Index 38.1 vss Appearance: Alert.? Oriented X3.? No acute cardiopulmonary distress distress.? Head: Normocephalic, atraumatic, no step-offs or deformities Neck: Normal inspection.? Neck supple.? CVS: Pulses normal.? Respiratory: No respiratory distress.? Abdomen: Soft and nontender.? Skin: ? Normal skin color. Extremities: 5/5 strength to bilateral upper and lower extremities. Bilateral lower extremities with normal distal sensation. No footdrop. 2+ dorsalis pedis, anterior tibialis, posterior tibialis and popliteal pulses equal bilateral. Patient reports discomfort with palpation of left anterior knee as well as medial aspect of knee and posterior aspect. No pain with palpation to left lateral knee. Range of motion to left knee limited to about 20-30% secondary to pain. Left knee appears to have a [id number] small effusion no overlying ecchymosis, edema. Neuro: Oriented X 3.? No motor deficit.? No sensory deficit. Course Reevaluation(s) Reevaluation #1: X-ray of left knee with no acute fracture dislocation to the left knee left suprapatellar effusion can not be excluded on this exam. However it is present on physical exam. I did order an Jasiel wrap to the left knee and educated patient on proper use of this. Toradol also ordered for pain and inflammation. Advised her to follow up with PCP and she will likely need orthopedics if this does not self resolve with supportive measures. Educated on RICE. Educated patient on diagnosis and treatment plan, answered all question, patient verbalizes understanding. At this time patient will be discharged home, advised to return with new or worsening symptoms. Educated on worrisome signs and symptoms and when to return. At this time I feel comfortable discharge home. Time: 07:24 Medications Administered Discontinued Medications Generic Name Dose Route Start Last Admin Trade Name Freq PRN Reason Stop Dose Admin Ketorolac Tromethamine 30 mg 11/30/24 07:01 11/30/24 07:09 Ketorolac Tromethamine 30 Mg/Ml Vial IM 11/30/24 07:02 30 mg ONCE ONE Administration Medical Decision Making Medical Decision Making MDM Narrative: 54-year-old female presents with atraumatic left knee pain. Denies falls or trauma Physical exam 5/5 strength to bilateral upper and lower extremities. Bilateral lower extremities with normal distal sensation. No footdrop. 2+ dorsalis pedis, anterior tibialis, posterior tibialis and popliteal pulses equal bilateral. Patient reports discomfort with palpation of left anterior knee as well as medial aspect of knee and posterior aspect. No pain with palpation to left lateral knee. Range of motion to left knee limited to about 20-30% secondary to pain. Left knee appears to have a [id number] small effusion no overlying ecchymosis, edema. History and physical exam concerning for effusion likely secondary to osteoarthritis versus sprain versus strain. Unlikely fracture, dislocation, septic joint, neurovascular compromise or acute threat to limb. To note, history and physical exam not consistent with arterial or venous occlusion Plan imaging. Differential Diagnosis Differential Diagnoses: The differential diagnosis associated with the presentation includes (History and physical exam concerning for effusion likely secondary to osteoarthritis versus sprain versus strain. Unlikely fracture, dislocation, septic joint, neurovascular compromise or acute threat to limb.) Admission/Observation Consideration of admission/observation: Escalation of care including admission/observation considered Independent Interpretation I performed an independent interpretation of an: Plain X-Ray (IMPRESSION: 1. No acute fracture or dislocation injury identified at the left knee. 2. Left suprapatellar effusion not excluded on this exam. This document has been electronically signed by: Cali Davison MD on 11/30/2024 04:00:23) Radiology Impression Discussion of test interpretation with radiology: I have reviewed the radiologist's reading. External Record Review External record reviewed: Inpatient record, Office record, Outpatient record, Prior outpatient labs, Prior outpatient radiology, Primary care record and Outside ED record Prescription Management I considered prescription management with: Pain Medication (Toradol) Chronic Conditions Patient?s care impacted by: Other (Please refer to HPI) Discharge Plan Discharge Clinical Impression: Acute pain of left knee Patient Disposition: Home, Self-Care Instructions: Knee Pain (ED), Arthralgia (ED) Additional Instructions: Take your medications as prescribed. If you were prescribed antibiotics today, it is important that you take your medication to their entirety, do not skip any doses, do not finish them early. Follow-up with your primary care provider this week. Return to the emergency department with new or worsening symptoms. Such as fevers, chills, chest pain, shortness of breath, nausea, vomiting, dizziness, headache, vision changes, lethargy In case of emergency call 911 Prescriptions: No Action pantoprazole 40 mg tablet,delayed release (DR/EC) 40 mg PO BID Qty: 60 6RF Linzess 72 mcg capsule 72 mcg PO QAM Qty: 30 6RF dicyclomine 20 mg tablet 20 mg PO BID Qty: 60 6RF sucralfate 1 gram tablet 1 g PO TID Qty: 90 0RF naproxen 500 mg tablet 500 mg PO BID PRN (Reason: pain) Qty: 30 0RF lidocaine [Lidoderm] 5 % adhesive patch,medicated 1 patch topical DAILY Qty: 30 0RF Rx Instructions: leave on most painful area for up to 12 hrs cyclobenzaprine 10 mg tablet 10 mg PO BEDTIME PRN (Reason: muscle spasm) Qty: 7 0RF ondansetron 4 mg tablet,disintegrating 4 mg PO Q6H PRN (Reason: nausea and vomiting) Qty: 12 0RF ketorolac 10 mg tablet 10 mg PO Q8H PRN (Reason: pain) 3 Days Qty: 9 0RF ondansetron HCl [Zofran] 4 mg tablet 4 mg PO Q6H cholecalciferol (vitamin D3) 25 mcg (1,000 unit) tablet 25 mcg PO QAM Advair HFA 230-21 mcg/actuation HFA aerosol inhaler 2 puff inhalation BID montelukast 10 mg tablet 10 mg PO QPM cetirizine 10 mg tablet 10 mg PO DAILY vitamin B complex [B Complex-Vitamin B12] Tablet 1 tab PO DAILY Nurtec ODT 75 mg tablet,disintegrating 75 mg PO ONCE PRN (Reason: Migraine Headache) pyridoxine (vitamin B6) 100 mg tablet 100 mg PO DAILY Qty: 90 3RF metoclopramide HCl [Reglan] 5 mg tablet See Rx Instructions PO QIDACHS Qty: 150 6RF Rx Instructions: 1 tab tid and 2 qhs orally 4 times a day before meal/bed; please dispense in bottle and NOT in med box!! Decreasing dose prednisone 20 mg tablet See Rx Instructions PO DAILY Qty: 4 0RF Rx Instructions: 2 tabs day 1 and 1 tab for 2 days orally daily; Referrals: [facility] [place] [facility] [Provider Group] - 2 weeks [facility] [Primary Care Provider] - 2 days Interventions: ED Discharge Assessment Last Done: 11/30/24 07:15 Discharge Date/Time: 11/30/24 07:16 Print Language: Welsh
== END 2024-11-30 07:16 | disposition home or self-care (01) ==
PROVIDERS: Emergency Provider Emergency Medicine Emergency Medical Services
DX: M25.562 Pain in left knee (principal); Z79.899 Other long term (current) drug therapy
CPT/HCPCS: 73560; 96372; 99284; J1885

== ENCOUNTER → 2024-11-30 01:40 | Outpatient (BNV) | payer MEDICAID, SELFPAY | PROVIDERS: Visit Provider Radiology Diagnostic Radiology | DX: M25.462 Effusion, left knee (principal) | CPT/HCPCS: 73560 ==

== ENCOUNTER 2024-12-17 10:48 | Outpatient (REF) | payer MEDICAID, SELFPAY ==
--- OUTSIDE RECORDS SUMMARY | 2024-12-17 11:33 | XMS_ITS | Clinical Summary ---
Author Organization [facility] ity Address [id number] [place] [id number] Care Team Providers Care Hr Receptionist Name Role Phone Unavailable Primary Care Provider Unavailabl e Social History Tobacco Use Types Packs/Day Years Used Date Smoking Tobacco: Never Assessed Comments Unknown Sex and Gender Information Value Date Recorded Sex Assigned at Not on file Legal Sex Female 5:36 AM EST Gender Identity Not on file Sexual Orientation Not on file Plan of Treatment Health Maintenance Due Date Last Done Comments Breast Cancer Screening 1972 DTaP,Tdap,and Td Vaccines (1 - Tdap) 1991 Hepatitis B Vaccines (1 of 3 - 19+ 3-dose series) 1991 Cervical Cancer Screening: P ap Smear 1993 Pneumococcal Vaccine: 50+ Ye ars (1 of 1 - PCV) 2022 Zoster Vaccines (1 of 2) 2022 COVID-19 Vaccine ( - 2023-2 5 season) 2024 Influenza Vaccine [...] patient's age to complete this topic Meningococcal B Vacine Aged Out No lo nger eligible based on patient's age to complete [...]
--- OUTSIDE RECORDS SUMMARY | 2024-12-17 11:34 | XMS_ITS | Data Portability ---
Author Organization [place] [facility], [facility] Address [address] [place] [address] Care Team Providers Care Franchise Sales Director Name Role Phone ANURADHA BURGOS Primary Care Provider Assessment Encounter Date Assessment Date Assessment LastModified by Organization Details LastModified Time 12/09/2024 12/09/2024 I am seeing the patient today under the supervision of Dr. Thomas who was available but who did not see the patient. Today's visit was facilitated with the help of a winch driver. HPI: Patient is a 54 year old female presenting today for evaluation of left knee pain. Has experienced a subtle increase in symptoms over the past few days. No injury or antecedent event. More pain with activity including walking, getting out of a chair and ascending/descendi ng stairs. Knee feels stiff at times and causes occasional sharp pains along the medial aspect of the knee. Has tried oral medications with minimal relief. Denies any new injuries, trauma or mechanical symptoms. Does have occasional giving out sensations. Past family, medical, social history and review of systems has been reviewed, updated and is located in the patient? s chart. Examination: The patient is well appearing and in no apparent distress. Alert and oriented x3. Gait is Antalgic favoring the left side. left knee reveals no evidence of any edema, erythema, or warmth. No visible Deformity. Range of motion of the knee slightly limited with mild discomfort at the end ranges. Large effusion. Does have some tenderness to palpation about the medial hemijoint line. Patellofemoral crepitus is noted. No ligamentous laxity. Negative Shawn? s . Calf is supple and nontender. Neurovascularly intact distally. X-rays ordered, obtained and reviewed at [facility]. 4 views of the left knee today showed mild narrowing of the medial compartment of the knee. With slight osteophyte formation. Narrowing is noted of patellofemoral joint as well. No evidence of any other bony lesions or pathology. Impression: Osteoarthritis, left knee Plan:I explained the nature of the diagnosis with the patient and its treatment options both conservative and surgical. Conservative measures were discussed at length including but not limited to physical therapy, bracing, anti-inflammatorie s and injection therapies. Patient would like to try PT and an injection. Please see procedure documentation for further information about the injection performed today. Will follow up in 3 months for further evaluation. The patient understands and agrees with the plan. They know to call if they have any further questions or concerns regarding their symptoms, or to follow up sooner if needed. [email or web address] Not available 12/09/2024 14:48:00 Plan of Treatment Reminders Order Date Submit Date Provider Last Modified By Organization Details Last Modified Time Details Appointments RECHECK 15 2024 10:15A M Arnold Vargas PA-C Not available Not available Not available Lab None recorded . Referral physical therapis t referral - DX: PATELLOF EMORAL SYNDROME LEFT KNEE EVAL AND TX2-3 times/we ek4-6 weeks 2024 025 [email or web address] Not available 12/09/2024 16:35:01 pain manageme nt referral - Lumbar Spine- Please see last office visit for evaluati on and treatmen t 2023 024 [email or web address] [facility], [address] [place] [address], [address], 07/29/2024 15:48:31 Procedures None recorded . Surgeries None recorded . Imaging XR, knee, 4 or more view - uc 5 4v left knee [email or web address] [facility], [address], [address], [place], [address], 12/09/2024 15:25:34 XR, lumbosac ral spine, 4 or more view - New LBP, room 325, include flexion and extensio n 2023 024 [email or web address] [facility], [address], [address], [place], [address], 06/05/2024 19:19:22 Medication Orders None recorded . Patient TargetsNo targets recorded. Patient InstructionsNo instructions recorded. Reason for Referral Pain Management Referral for Lumbar spondylosis Lumbar Spine- Please see last office visit for evaluation and treatment Referring Physician: Christian Vo, Orthopedic Surgery, [id number] Encounter Date: 07/08/2024 Physical Therapist Referral for Osteoarthritis of left knee joint DX: PATELLOFEMORAL SYNDROME LEFT KNEE EVAL AND TX2-3 times/week4-6 weeks Referring Physician: Arnold Vargas, Orthopedic Surgery, Encounter Date: 12/09/2024 Results Created Date Observation Date Name Description Value Unit Range Abnormal Flag Note LastModifiedBy Organization Detail LastModifiedTime 06/05/20 24 06/05/2024 XR, lumbo sacra l spine , 4 or more view [email or web address] ?Encry pted=s hAaTro YD8dLq bEUv6g %2BXZw aYqtaq 0bqfl% 2Fg9IQ a4ajBk vP9nXo QUaueC m3YtLR FvZlgJ JJ8mAn HZtai3 4e9921 AC0Kob HqMUaD eUC8mr 84%3D INTERFACE [facility] [address], [place], [address], 06/05/2024 11:22:44 06/05/20 24 06/05/2024 XR, lumbo sacra l spine , 4 or more view [email or web address] ?Encry pted=s hAaTro YD8dLq bEUv6g %2BXZw aYqtaq 0bqfl% 2Fg9IQ a4ajBk vP9nXo QUaueC m3YtLR FvZlgJ JJ8mAn HZtai3 7d4162 AC0Kob HqMUaD eUC8mr 84%3D INTERFACE [facility] [address], [place], [address], 06/05/2024 11:22:45 08/08/20 24 03/05/2024 MRI, lumba r spine , w/o contr ast No observ ation record ed. [email or web address] Not Available 08/08 14:50:59 12/09/19 25 12/09/2024 XR, knee, 4 or more view [email or web address] ?Encry pted=s hAaTro YD8dLq bEUv6g %2BXZw aYqtaq 0bqfl% 2Fg9IQ a4ajBk vP9nXo QUaueC m3YtLR FvZlgJ J8Wardell HZtai3 1n3905 AC0Kqb HqGWaW nKiQtr MwF INTERFACE [facility] [address], [place], [address], 12/09/2024 13:08:38 12/09/19 25 12/09/2024 XR, knee, 4 or more view [email or web address] ?Encry pted=s hAaTro YD8dLq bEUv6g %2BXZw aYqtaq 0bqfl% 2Fg9IQ a4ajBk vP9nXo QUaueC m3YtLR FvZlgJ J8Wardell HZtai3 6f8834 AC0Kqb HqGWaW nKiQtr MwF INTERFACE [facility] [address], [place], [address], 12/09/2024 13:08:40 Result Notes None recorded. Problems Name Problem SNOMED Code Status Onset Date Resolution Date Notes Provider Name and Address Organization Details Recorded Time Lumbar radiculopathy 805009271 Active 2023 CHANG [place] - [facility] 4 11:11:21 Lumbar spondylosis 291539273 Active 2023 Christian Vo MD [address], [place], [address] [place] [address] - [facility] 4 13:16:25 Problem Notes None recorded. Procedures Surgical History Date Name Laterality Status Provider Name and Address Organization Details Recorded Time 12/09/2024 JZ Knee Asp & Inj completed Arnold Vargas PA-C [address], [place], [address], [facility] - [facility] 12/09/2024 14:48:08 Imaging Results Imaging Date Name Status LastModified by Organiz ation Details LastModified Time 06/05/2024 XR, lumbosacral spine, 4 or more view completed INTERFACE [facility] [address], [place], [address], 06/05/2024 11:22:44 06/05/2024 XR, lumbosacral spine, 4 or more view completed INTERFACE [facility] [address], [place], [address], 06/05/2024 11:22:45 03/05/2024 MRI, lumbar spine, w/o contrast completed [email or web address] Information not available 08/08/2024 14:50:59 12/09/2024 XR, knee, 4 or more view completed INTERFACE [facility] [address], [place], [address], 12/09/2024 13:08:38 12/09/2024 XR, knee, 4 or more view completed INTERFACE [facility] [address], [place], [address], 12/09/2024 13:08:40 Procedure Notes None recorded. Medical Equipment None Reported. Allergies No known drug allergies Medications Name Sig Start Date Stop Date Status Note LastModified by Organization Details LastModified Time medbox status USE DIRECTED 12/09 completed Not Available Not Available Not Available cyclobenzap rine 10 mg tablet TAKE 1 TABLET BY MOUTH AT BEDTIME NEEDED FOR MUSCLE SPASMS active Not Available Not Available No t Available tizanidine 2 mg tablet TAKE 1 TO 2 TABLETS BY MOUTH EVERY 8 HOURS NEEDED FOR MUSCLE SPASMS active Not Available Not Available No t Available azithromyci n 250 mg tablet TAKE 2 TABLETS BY MOUTH ON DAY 1, THEN TAKE 1 TABLET DAILY ON DAYS 2-5 active Not Available Not Available No t Available sucralfate 1 gram tablet TAKE 1 TABLET BY MOUTH THREE TIMES DAILY active Not Available Not Available No t Available prednisone 20 mg tablet TAKE 2 TABLETS BY MOUTH FOR 1 DAY, THEN TAKE 1 TABLET BY MOUTH FOR 2 DAYS. 12/09 completed Not Available Not Available Not Available melatonin 3 mg tablet TAKE 1 TO 2 TABLETS BY MOUTH 2 HOURS BEFORE BEDTIME NEEDED FOR SLEEP active Not Available Not Available No t Available doxepin 10 mg capsule TAKE 1 CAPSULE BY MOUTH AT BEDTIME active Not Available Not Available No t Available tramadol 50 mg tablet TAKE 1 TABLET BY MOUTH EVERY 8 HOURS NEEDED FOR SEVERE PAIN active Not Available Not Available No t Available ketorolac 10 mg tablet TAKE 1 TABLET BY MOUTH EVERY 8 HOURS NEEDED FOR PAIN FOR 3 DAYS active Not Available Not Available No t Available meloxicam 7.5 mg tablet TAKE 1 TABLET BY MOUTH TWICE DAILY IN THE MORNING AND AT BEDTIME NEEDED FOR MODERATE PAIN active Not Available Not Available No t Available metoclopram brenda 5 mg tablet TAKE 1 TABLET BY MOUTH THREE TIMES DAILY AND TAKE 2 TABLETS BY MOUTH AT BEDTIME active Not Available Not Available No t Available dicyclomine 20 mg tablet TAKE 1 TABLET BY MOUTH TWICE DAILY active Not Available Not Available No t Available benzonatate 100 mg capsule TAKE 1 CAPSULE BY MOUTH THREE TIMES DAILY IN THE MORNING, AT NOON, AND AT BEDTIME NEEDED FOR COUGH FOR UP TO 7 DAYS active Not Available Not Available No t Available pantoprazol e 40 mg tablet,darrell yed release TAKE 1 TABLET BY MOUTH TWICE DAILY IN THE MORNING AND IN THE EVENING active Not Available Not Available No t Available lidocaine 5 % topical patch APPLY 1 PATCH TOPICALLY TO THE SKIN DAILY. LEAVE ON MOST PAINFUL AREA FOR UP TO 12 HOURS active Not Available Not Available No t Available montelukast 10 mg tablet TAKE 1 TABLET BY MOUTH EVERY EVENING active Not Available Not Available No t Available pyridoxine (vitamin B6) 100 mg tablet TAKE 1 TABLET BY MOUTH EVERY MORNING active Not Available Not Available No t Available lorazepam 1 mg tablet TAKE 1 TABLET BY MOUTH 1 HOUR BEFORE PROCEDURE active Not Available Not Available No t Available ondansetron 4 mg disintegrat ing tablet DISSOLVE 1 TABLET BY MOUTH EVERY 6 HOURS NEEDED FOR NAUSEA AND VOMITING active Not Available Not Available No t Available naproxen 500 mg tablet TAKE 1 TABLET BY MOUTH TWICE DAILY NEEDED FOR PAIN active Not Available Not Available No t Available metoclopram brenda 10 mg tablet TAKE 1 TABLET BY MOUTH FOUR TIMES DAILY active Not Available Not Available No t Available Ventolin HFA 90 mcg/actuati on aerosol inhaler INHALE 2 PUFFS BY MOUTH EVERY 4 HOURS NEEDED FOR WHEEZING OR SHORTNESS OF BREATH active Not Available Not Available No t Available pregabalin 100 mg capsule TAKE 1 CAPSULE BY MOUTH AT BEDTIME active Not Available Not Available No t Available Advair HFA 230 mcg-21 mcg/actuati on aerosol inhaler INHALE 2 PUFFS BY MOUTH TWICE DAILY IN THE MORNING AND IN THE EVENING. RINSE MOUTH AFTER USING. active Not Available Not Available No t Available cholecalcif esperanza (vitamin D3) 25 mcg (1,000 unit) tablet TAKE 1 TABLET BY MOUTH EVERY MORNING active Not Available Not Available No t Available diclofenac 1 % topical gel APPLY 4 GRAMS TOPICALLY 4 TIMES A DAY IN THE MORNING, AT NOON, IN THE EVENING, AND AT BEDTIME NEEDED FOR PAIN active Not Available Not Available No t Available blood pressure test kit-large cuff USE TO CHECK BLOOD PRESSURE TWICE DAILY active Not Available Not Available No t Available Compact Space Chamber USE WITH INHALER EVERY 4 HOURS NEEDED (for asthma) active Not Available Not Available No t Available Linzess 72 mcg capsule TAKE 1 CAPSULE BY MOUTH EVERY MORNING active Not Available Not Available No t Available Vitals Date Recorded Body height Body mass index (BMI) Body weight Provider Name and Address Organization Details Last Updated DateTime 06/05/2024 167.64 cm 39.2 kg/m2 368219.95 g CHANG HACKETT [facility] 06/05/2024 11:12:45 Date Recorded Body height Body mass index (BMI) Body weight Provider Name and Address Organization Details Last Updated DateTime 07/08/2024 167.64 cm 39.2 kg/m2 320397.95 g NATHANIEL MIDDLETON [facility] 07/08/2024 11:12:16 Date Recorded Body height Body mass index (BMI) Body weight Provider Name and Address Organization Details Last Updated DateTime 12/09/2024 167.64 cm 39.2 kg/m2 633025.95 g Rafael Cagle [facility] 12/09/2024 12:48:25 Social History None recorded. Functional Status None recorded. Mental Status None recorded. Family History Nothing Reported. Medical History No medical history recorded. Gynecological HistoryNo gynecological history recorded. Obstetrics History GPAL:G 0 P 0 0 0 0 Past Encounters Encounter ID Performer Location Encounter Start Date Encounter Closed Date Diagnosis/Indication Diagnosis SNOMED-CT Code Diagnosis ICD10 Code Diagnosis Note [id number] Christian Vo MD [facility] [address] [place], [place] [address] 06/05/2024 10:08:25 07/02/2024 09:55:39 Lumbar radiculopathy 945628832 M54.16 Lumbar spondylosis 82244 0009 M47.803 [id number] Christian Vo MD [facility] [address] [place] [address] 07/08/2024 10:33:19 07/29/2024 15:48:30 Lumbar radiculopathy 618916071 M54.16 Lumbar spondylosis 52578 0009 M47.653 [id number] Arnold Vargas PA-C [facility] - [facility] [address] [place] [address] 12/09/2024 12:40:35 12/09/2024 14:48:23 Pain of knee region 3287743940 M25.562 Osteoarthr itis of left knee joint 5761733752 22065 M17.12 Health Concerns Section Related Observation LastModified by Organization Detai ls LastModified Time None Recorded Concern Status LastModified by Organization Details LastModified Time None Recorded Advance Directives Directive None Recorded Payers Encounter Date Sequence Insurance Name Policy Number Policy Vazquez Covered Member ID Vazquez Member ID Guarantor Name 06/05/2024 1 [place] Carmelina Radha Etienne [id number] Carmelina Etienne 07/08/2024 1 [place] Carmelina E Lowell [id number] Carmelina Etienne 12/09/2024 1 [place] Carmelina E Lowell [id number] Carmelina Etienne Notes Date Note Type Note Provider Name and Address Organization Details Recorded Time text/html Indonesian only speaking patient. Entire encounter was completed with the use of an utility worker and took over 20 minutes. HPI: 54-year-old female presents complaining of low back pain radiates down right lower extremity to the right foot. Describes the pain as a 9 out of 10 burning constant worse with standing. Currently taking meloxicam and Tylenol. Has a history of injections at [facility] and [facility]. Denies bowel/bladder incontinence and saddle anesthesia. PFMSH and ROS has been reviewed, updated, and is located in the patient? s chart. PHYSICAL EXAM:Respiration Rate 14-16Height and Weight per above. OverweightNormal Development without evidence of gross deformitiesOriented to person/place/timeNormal mood and affectNo swelling in bilateral lower extremitiesNormal heel toe gaitHead and Neck: Neck was supple without evidence of defects. No atrophy of the neck was visualized. Spine:Examination of the spine demonstrated no crepitation with palpation of the spinous process.The patient was able to bend at the waist to 50 degrees. No instability of the spine was demonstrated on physical exam. The spine had good strength and tone.No scars noted. No skin or hair changes Right Lower Extremity:No defects or tenderness. No pain with internal rotation and external rotation of the hip.Negative tenderness over the greater trochanteric bursa.Negative straight leg raise.No evidence of hip subluxation or impingement.Negative JAVIER.Strength Exam:5/5 hip flexion5/5 knee extension5/5 ankle dorsiflexion5/5 Extensor Hallucis Longus5/5 plantar flexion Left Lower Extremity:No defects or tenderness. No pain with internal rotation and external rotation of the hip.Negative tenderness over the greater trochanteric bursa.Negative straight leg raise.No evidence of hip subluxation or impingement.Negative JAVIER.Strength Exam:5/5 hip flexion5/5 knee extension5/5 ankle dorsiflexion5/5 Extensor Hallucis Longus5/5 plantar flexion Achilles and Patella reflexes were 2+ and symmetric.Normal sensation to light touch from L2-S1.Negative Clonus. IMAGING AND DIAGNOSTIC TESTS: I independently reviewed 4 view radiographs of the lumbar spine obtained today to include AP, lateral, flexion and extension and note spondylosis. No fractures. Normal flexion and extension. I indepedently reviewed a L spine MRI report from [facility] 03/05/24 which notes. degenerative changes and L5-S1 disc bulge with with bilateral L5 exiting roots right greater than left. I independently reviewed outside medical records from pain managment dated 10/03/21 and 12/28/21 noting L4-5 LESI. ASSESSMENT AND PLAN: Lumbar spondylosis and radiculopathyDiagnosis and treatment options were discussed.She was given a list of documents and images to bring to her next appointment to formulate a treatment plan. I need to see the images of her MRI and her treatment notes from [facility].FOLLOW UP: With MRI disc and treatment notes. Christian Vo MD [address] [facility] [address], [place], [address], [facility] - [facility] 06/08/2024 13:16:48 4 text/html Indonesian only speaking patient. Entire encounter was completed with the use of an utility worker and took over 21 minutes. HPI: 54-year-old female here to follow-up for low back pain radiates down right lower extremity to the right foot. Describes the pain as a 9 out of 10 burning constant worse with standing. Currently taking meloxicam and Tylenol. Has a history of injections at [facility] and [facility]. Denies bowel/bladder incontinence and saddle anesthesia.Here today for MRI review. PFMSH and ROS has been reviewed, updated, and is located in the patient? s chart. PHYSICAL EXAM:Respiration Rate 14-16Height and Weight per above. OverweightNormal Development without evidence of gross deformitiesOriented to person/place/timeNormal mood and affectNo swelling in bilateral lower extremitiesNormal heel toe gaitHead and Neck: Neck was supple without evidence of defects. No atrophy of the neck was visualized. Spine:Examination of the spine demonstrated no crepitation with palpation of the spinous process.The patient was able to bend at the waist to 50 degrees. No instability of the spine was demonstrated on physical exam. The spine had good strength and tone.No scars noted. No skin or hair changes Right Lower Extremity:No defects or tenderness. No pain with internal rotation and external rotation of the hip.Negative tenderness over the greater trochanteric bursa.Negative straight leg raise.No evidence of hip subluxation or impingement.Negative JAVIER.Strength Exam:5/5 hip flexion5/5 knee extension5/5 ankle dorsiflexion5/5 Extensor Hallucis Longus5/5 plantar flexion Left Lower Extremity:No defects or tenderness. No pain with internal rotation and external rotation of the hip.Negative tenderness over the greater trochanteric bursa.Negative straight leg raise.No evidence of hip subluxation or impingement.Negative JAVIER.Strength Exam:5/5 hip flexion5/5 knee extension5/5 ankle dorsiflexion5/5 Extensor Hallucis Longus5/5 plantar flexion Achilles and Patella reflexes were 2+ and symmetric.Normal sensation to light touch from L2-S1.Negative Clonus. IMAGING AND DIAGNOSTIC TESTS: I independently reviewed 4 view radiographs of the lumbar spine obtained today to include AP, lateral, flexion and extension and note spondylosis. No fractures. Normal flexion and extension. I indepedently reviewed a L spine MRI report from [facility] 03/05/24 which notes. degenerative changes and L5-S1 disc bulge with with bilateral L5 exiting roots right greater than left. I independently reviewed outside medical records from pain managment dated 10/03/21 and10/25/21 noting L4-5 LESI. I independently reviewed an MRI of the lumbar spine from 03/05/2024 and note well-hydrated disks. Mild right-sided foraminal stenosis at L5-S1. No significant nerve impingement. ASSESSMENT AND PLAN:Lumbar spondylosisDiagnosis and treatment options were discussed.We reviewed her MRI in detail. She has no surgical indication. I will refer her to [facility] for evaluation and treatment. She will follow-up as needed. Christian Vo MD [address] [place], [place] [address], [place], [address], [facility] - [facility] 07/08/2024 11:18:15 OBGyn Episode No OBEpisode recorded.
[2024-12-17 13:49] LABS: Estimated Average Glucose 131 mg/dL; Hemoglobin A1C 148.9906 umol/L; Hemoglobin A1c % 6.2 % (<6.0); Total Hemoglobin (HGBA1C) 3350.6577 umol/L
[2024-12-17 14:11] LABS: Alanine Aminotransferase 22 U/L (0-31); Albumin Level 4.4 g/dL (3.5-5.0); Alkaline Phosphatase 82 U/L (39-117); Anion Gap 11 (12-20); Aspartate Amino Transferase 23 U/L (5-31); Bilirubin Total 0.4 mg/dL (0.0-1.0); Blood Urea Nitrogen 13 mg/dL (9-16); Calcium 9.9 mg/dL (8.4-10.2); Carbon Dioxide 27 mmol/L (22-29); Chloride 107 mmol/L (96-108); Cholesterol 190 mg/dL (<200); Estimated Glomerular Filt Rate > 60; Glucose Random 93 mg/dL (60-115); HDL Cholesterol 58 mg/dL (>40); LDL Cholesterol Calculated 118 mg/dL (<100); Potassium 3.9 mmol/L (3.3-5.1); Sodium 141 mmol/L (135-145); Total Protein 8.3 g/dL (6.5-8.0); Triglycerides 73 mg/dL (<150)
[2024-12-17 15:24] LABS: Reflex LDLD? No
[2024-12-19 21:17] LABS: TS Negative Control Passed; TS Panel A 0; TS Panel B 0; TS Positive Control Passed; TSpotTB Negative (Negative)
== END 2024-12-17 10:49 | disposition home or self-care (01) ==
LOC: HO.HHCL 10:48
PROVIDERS: Visit Provider Family Medicine
DX: R03.0 Elevated blood-pressure reading, without diagnosis of hypertension (principal); R73.03 Prediabetes; Z11.1 Encounter for screening for respiratory tuberculosis
CPT/HCPCS: 36415; 80053; 80061; 83036; 86481

== ENCOUNTER 2025-01-08 12:40 | Outpatient (REF) | payer MEDICAID, SELFPAY ==
--- NOTE | ~2025-01-08 | US_ITS ---
EXAMINATION: MM DIAGNOSTIC DIGITAL BREAST TOMOSYNTHESIS, BILATERAL Limited bilateral ultrasound. CLINICAL INFORMATION: Bilateral breast pain. Family history of breast cancer including sister diagnosed at age 38. COMPARISON: Mammography: Comparison is made with relevant prior exams. TECHNIQUE: Digital breast mammography with tomosynthesis is performed in both the craniocaudal and mediolateral oblique views along with computer-aided detection (CAD). FINDINGS: There are scattered areas of fibroglandular density (ACR BI-RADS breast composition Category b). Bilateral scattered asymmetries are stable. Lucent centered left breast calcifications are benign. There are no significant masses, abnormal calcifications, or other abnormalities. Targeted color Doppler ultrasound scanning in the upper inner and upper outer right breast areas of patient's pain demonstrates normal fibronodular breast tissue. There is no sonographic abnormality. Targeted color Doppler ultrasound scanning in the left breast upper inner quadrant area of patient's pain demonstrates normal fibroglandular breast tissue. There is no sonographic abnormality. Results are provided to the patient at time of visit by the technologist. US/US breast BI limited mamm only IMPRESSION: No mammographic or sonographic abnormalities to account for the patient's bilateral breast pain. Recommend clinical evaluation and follow-up. ASSESSMENT: BI-RADS BI-RADS 2 - Benign Findings RECOMMENDATION: 1 year F/U This patient's information was entered into a reminder system with a target due date for their next mammogram. Electronically signed by: Nohemy Sebastian DO 01/08/2025 02:06 PM EDT
--- OUTSIDE RECORDS SUMMARY | 2025-01-08 15:58 | XMS_ITS | Clinical Summary ---
Author Organization [facility] Address [address] [place] [address] Care Team Providers Care Research Staff Member Name Role Phone Unavailable Primary Care Provider [...]
== END 2025-01-08 12:41 | disposition home or self-care (01) ==
LOC: HO.MAMMO 12:40
PROVIDERS: PCP Advanced Practice Midwife; Visit Provider Family Medicine
DX: N64.4 Mastodynia (principal); Z80.3 Family history of malignant neoplasm of breast
CPT/HCPCS: 76642; 77062; 77066

== ENCOUNTER → 2025-01-08 13:00 | Outpatient (BNV) | payer MEDICAID, SELFPAY | PROVIDERS: PCP Advanced Practice Midwife; Visit Provider Internal Medicine | DX: N64.4 Mastodynia (principal) | CPT/HCPCS: 76642; 77062; 77066 ==

== ENCOUNTER 2025-05-18 15:12 | Outpatient (REF) | payer MEDICAID, SELFPAY ==
--- NOTE | ~2025-05-18 | US_ITS ---
CLINICAL HISTORY: N20.0 - Calculus of kidney US Renal Comparison: [place]/SR - US KIDNEY BILATERAL - 03/22/23 12:53 EDT Findings: Right kidney normal size and echotexture, 12.4 cm length. Left kidney normal size and echotexture, 12.7 cm length. Left lower pole calculus measuring 5 mm. No hydronephrosis of either kidney. Normal color Doppler IMPRESSION: 1. Nonobstructing left renal calculus. 2. No acute process. This document has been electronically signed by: Amanda Dhillon MD on 05/19/2025 15:08:58
--- OUTSIDE RECORDS SUMMARY | 2025-05-18 15:48 | XMS_ITS | Encounter Summary ---
Author Organization [employer] Address [address] [place] [address] 7 [place] [address] Care Team Providers Care Office Services Specialist Name Role Phone Mikala Borges MD Primary Care Provider [phone] Sherrie Etienne RN Unavailable [phone] Encounter Details Date Type Department Care Team ([facility] st Contact Info) Description 12/29/2022 Abstract [facility] ADULT DENTAL [address] [place], [place] [id number] Deuce Baird DMD [address] [place] [address] Social History Tobacco Use Types Packs/Day Years [...] as of this encounter Plan of Treatment Not on file documented as of this encounter Visit Diagnoses Not on filedocumented in this encounter Care Teams Office Services Specialist Relationship Specialty Start Date End Date Mikala Borges MD [address] [place] [address] PCP - General Family Medicine 10/29/18 Sherrie Etienne RN [address] [place] [id number] Tappet AdjusterPharmaceutical Physician 10/03/24 01/04/25 documented as of this encounter
--- OUTSIDE RECORDS SUMMARY | 2025-05-18 15:48 | XMS_ITS | Clinical Summary ---
Author Organization [facility] Address [id number] [place] [id number] Care Team Providers Care Radiology Administrator Name Role Phone Unavailable Primary Care Provider [...] Vaccine (1 - 2023-2 5 season) 2024 Depression Screening 10/29/2024 Influenza Vaccine (#1) 2025 HIB Vaccines Aged Out No longer eligi [...] age to complete this topic Meningococcal B Vaccine Aged Out No l onger eligible based on patient's age to complete this topic RSV Immunization Patients Un josue 20 months Aged Out No longer eligible b ased on patient's age to complete this topic Varicella Vaccines Aged Out No longer eligible based on patient's age to complete this topic
--- OUTSIDE RECORDS SUMMARY | 2025-05-18 15:48 | XMS_ITS | Clinical Summary ---
Author Organization [facility] Address [address] [place] [phone] Phone Care Team Providers Care Suture Gauger Name Role Phone Pcp, Unknown Primary Care Provider Unavailabl e Allergies Active Allergy Reactions Criticality Noted Date Comments Citalopram 05/24/2022 Divalproex 05/24/2022 Paroxetine Hcl 05/24/2022 Olanzapine 05/24/2022 Medications sucralfate (CARAFATE) 100 mg/mL suspension Take 10 mL (1 g total) by mouth 4 (four) times a day. 414 mL 05/25/2022 Active Social History Tobacco Use Types Packs/Day Years Used Date Smoking Tobacco: Never Smokeless Tobacco: Never Alcohol Use Standard Drinks/Week Comments Not Currently 0 (1 standard drink = 0.6 oz pur e alcohol) Education Answer Date Recorded Are you interested in more education? Not on nikolai e 02/23/2023 Are you concerned about learning? Not on file 02/23/2023 No 02/23/2023 No 02/23/2023 Digital Access Answer Date Recorded No 03/27/2023 No 03/27/2023 Reliable internet access at home? Not on file 03/27/2023 Device with a working camera? Not on file Comments Unknown Sex and Gender Information Value Date Recorded Sex Assigned at Female 05/24/2022 5:17 PM EDT Legal Sex Female 4:47 PM EDT Gender Identity Female 05/24/2022 5:17 PM EDT Sexual Orientation Straight 05/24/2022 5: 17 PM EDT Last Filed Vital Signs Vital Sign Reading Time Taken Comments Blood Pressure 150/84 05/25/2022 12:20 AM EDT Pulse 89 05/25/2022 12:20 AM EDT Temperature 36.7 C (98.1 F) 05/25/2022 12:20 AM EDT Respiratory Rate 18 05/25/2022 12:20 AM EDT Oxygen Saturation 98% 05/25/2022 12:20 AM EDT Inhaled Oxygen Concentration - - Weight 104.3 kg (230 lb) 05/24/2022 5:18 PM EDT Height 167.6 cm (5' 6 ) 05/24/2022 5:18 PM EDT Body Mass Index 37.12 05/24/2022 5:18 PM EDT Plan of Treatment Health Maintenance Due Date Last Done Comments Adult Td,Tdap Booster 1972 LIPID PANEL 1972 DEPRESSION SCREENING 1984 HEPATITIS C SCREENING 1990 HIV ONE-TIME SCREENING (18-6 5 YEARS) 1990 PAP SMEAR 1993 SMOKING STATUS SCREENING (On ce After 26 Yrs) 1998 MAMMOGRAM 2012 COLOGUARD 2017 COLONOSCOPY 2017 COLORECTAL CANCER SCREENING 2017 FIT TEST 2017 FOBT 2017 SIGMOIDOSCOPY 2017 VIRTUAL COLONOSCOPY 2017 PNEUMOCOCCAL VACCINES (50+ y ears) (1 of 1 - PCV) 2022 ZOSTER VACCINES (1 of 2) 2022 COVID-19 VACCINE (1 - 2023-2 5 season) 2024 SCREENING FOR DIABETES 05/24/2025 05/24/2022 HEPATITIS A VACCINES Aged Out No long er eligible based on patient's age to complete this topic HIB VACCINES Aged Out No longer eligi ble based on patient's age to complete this topic MENINGOCOCCAL VACCINES (ACWY) Aged Out No longer eligible based on patient's age to complete this topic MENINGOCOCCAL VACCINES (B) Aged Out N o longer eligible based on patient's age to complete this topic Medical Devices Not on file Insurance [facility] [id number] Care Teams Suture Gauger Relationship Specialty Start Date End Date Pcp, Unknown PCP - General 05/24/22 Additional Source Comments The information contained in this document represents components of the legal health record. It is not the complete legal health record.[facility]
== END 2025-05-18 15:13 | disposition home or self-care (01) ==
LOC: HO.US 15:12
PROVIDERS: PCP Family Medicine; Visit Provider Urology
DX: N20.0 Calculus of kidney (principal)
CPT/HCPCS: 76775

== ENCOUNTER → 2025-05-18 15:15 | Outpatient (BNV) | payer MEDICAID, SELFPAY | PROVIDERS: PCP Family Medicine; Visit Provider Radiology Diagnostic Radiology | DX: N20.0 Calculus of kidney (principal) | CPT/HCPCS: 76775 ==

== ENCOUNTER 2025-05-21 09:11 | Outpatient (AMB) | payer MEDICAID, SELFPAY ==
--- OUTSIDE RECORDS SUMMARY | 2025-05-21 09:41 | XMS_ITS | Encounter Summary ---
Author Organization [employer] Address [address] [place] [address] 7 [place] [address] Care Team Providers Care Cheerleading Coach Name Role Phone Mikala Borges MD Primary Care Provider [phone] Sherrie Etienne RN Unavailable [phone] Encounter Details Date Type Department Care Team ([facility] st Contact Info) Description 12/29/2022 Abstract [facility] ADULT DENTAL [address] [place], [place] [phone] Deuce Baird DMD [address] [place] [address] Social History Tobacco Use Types Packs/Day Years [...] on filedocumented in this encounter Care Teams Cheerleading Coach Relationship Specialty Start Date End Date Mikala Borges MD [address] [place] [address] PCP - General Family Medicine 10/29/18 Sherrie Etienne RN [address] [place] [id number] International Account ManagerCylinder Dyer 10/03/24 01/04/25 documented as of this encounter
--- OUTSIDE RECORDS SUMMARY | 2025-05-21 09:41 | XMS_ITS | Clinical Summary ---
Author Organization [facility] Address [address] [place] [address] Phone Care Team Providers Care Mechanical Project Manager Name Role Phone Pcp, Unknown Primary Care [...] topic Medical Devices Not on file Insurance [facility] C[employer] A[employer] [facility] [place] [id number] Care Teams Mechanical Project Manager Relationship Specialty Start Date End Date Pcp, Unknown PCP - General 05/24/22 Additional Source Comments The information contained in this document represents components of the legal health record. It is not the complete legal health record.[facility]
--- OUTSIDE RECORDS SUMMARY | 2025-05-21 09:41 | XMS_ITS | Clinical Summary ---
Author Organization [facility] it[facility] Address [address] [place] [id number] Care Team Providers Care Truck Chauffeur Name Role Phone Unavailable Primary Care Provider [...]
--- NOTE | 2025-05-21 09:44 | A.OFFVIS_ITS ---
Intake Visit Reasons: 1y/US Intake Note: Patient presents to office for a 1y follow-up/US * Renal US 05/19 Urology medications:Vitamin B6, Vitamin B complex Blood thinners: none Antibiotic allergies: none Embroidery Designer Required: Yes Embroidery Designer Language: Ship'S Carpenter Name: Weston [id number] Information Interpreted: non-clinical & clinical Accompanied by: Child Allergies citalopram (From Celexa) Adverse Reaction (Mild, Verified 05/21/25 09:45) ANXIETY divalproex sodium (From Depakote) Adverse Reaction (Mild, Verified 05/21/25 09:45) ANXIETY/JUMPY olanzapine (From Zyprexa) Adverse Reaction (Mild, Verified 05/21/25 09:45) ANXIETY paroxetine (From Paxil) Adverse Reaction (Mild, Verified 05/21/25 09:45) ANXIETY Medication List - Last Reconciled 05/21/25 by Malissa Wilson MD cetirizine 10 mg PO DAILY cholecalciferol (vitamin D3) 25 mcg PO QAM dicyclomine 20 mg PO BID fluticasone propion-salmeterol 230-21 mcg/actuation (Advair HFA) 2 puffs inhalation BID lidocaine 5% (Lidoderm) 1 patch topical DAILY linaclotide (Linzess) 72 mcg PO QAM metoclopramide HCl (Reglan) 1 tab tid and 2 qhs orally 4 times a day before meal/bed; please dispense in bottle and NOT in med box!! Decreasing dose montelukast 10 mg PO QPM naproxen 500 mg PO BID PRN ondansetron 4 mg PO Q6H PRN ondansetron HCl (Zofran) 4 mg PO Q6H pantoprazole 40 mg PO BID pyridoxine (vitamin B6) 100 mg PO DAILY rimegepant (Nurtec ODT) 75 mg PO ONCE PRN sucralfate 1 g PO TID vitamin B complex (B Complex-Vitamin B12 tablet) 1 tab PO DAILY HPI Comments Details: 05/21/25--carbon is here for 1 year follow-up - kidney stones she had a renal ultrasound on 05/18/2025. Left kidney stone 5 mm in the lower pole. History of Present Illness - The patient is a 55-year-old female presenting with nephrolithiasis. - A small left kidney stone was identified on recent ultrasound imaging, which i s not currently obstructing the kidney. - Previous imaging showed tiny stones on the right side, which are not visible on the latest ultrasound. - The patient has been advised to maintain high fluid intake and is taking vitamin B6 as a preventative measure. Results - Ultrasound: Small left kidney stone identified, no stones on the right side Plan - Continue high fluid intake to prevent stone formation. Refill vitamin B6 prescription to aid in stone prevention. - Schedule follow-up ultrasound next year to monitor kidney stone status. 04/10/2024--The patient is here for follow-up for history of kidney stones. Certified microstrategy architect present. I have reviewed KUB film, 04/01/2024, no radiopaque calcifications seen overlying the renal fossa. official reading pending. The patient denies any recurrent symptoms of renal colic or gross hematuria. Encouraged to continue with diet modification, importance of good hydration and adding lemon to the water. I will prescribe vitamin B6 to take daily. Continue to monitor follow-up on 1 year renal ultrasound prior. 04/11/23-- The patient is a Divehi speaking female. Certified microstrategy architect was present during the visit. The patient states having right sided pain which I have reviewed with her the US results and discussed that the right sided pain is likely not of related to the kidneys based on renal sono results. Evaluation today-- Blood: 200 Ovidio/uL, leukocytes: negative. Discussed 24 hour urine results--collected 02/21/23: Total volume 1.52 L, Calcium 125 mg; Oxalate 30 mg, Sodium 209, Citrate 896mg. Instructed on importance of fluid intake, Low oxalate diet, low sodium diet. CTAP results reviewed--12/01/22-- Tiny calculi in the right kidney measuring up to 3 mm. US retroperitoneal results reviewed? 03/22/23--Resolved left-sided hydronephrosis. No calculi in the right kidney. There is reported possible left kidney stone which may be artifact. 01/10/23--microstrategy architect used for this visit. Patient presents today for office cystoscopy and stent removal. She is status post cystoscopy bilateral retrograde right ureteral stent, at time of procedure left ureteral stone was not visualized. I also discussed that on CT scan there was a nonobstructing small right kidney stone. The patient states that she was followed by another urologist due to history of kidney stones. Evaluation today-cystoscopy right ureteral stent removed. Plan continue to monitor kidneys, metabolic workup, 24 hour urine, follow-up in 3 months renal ultrasound prior. [facility] Medical History Kidney stones Hydronephrosis Obstruction of left ureteropelvic junction (UPJ) due to stone Hematuria Left ureteral stone Low back pain Abdominal cramping Well woman exam Upper abdominal pain Osteoarthritis of right shoulder Migraines Low back pain Renal calculi GERD (gastroesophageal reflux disease) Surgical History Hx of cystoscopy History of surgery History of hernia repair History of hysterectomy History of appendectomy Hx of endoscopy History of colonoscopy Family History Father History of colon cancer Mother History of diabetes mellitus Social History Alcohol intake: never Patient Tobacco Use Status: Never used Tobacco Sexual orientation: Straight/Heterosexual Gender identity: Female Female Reproductive History Menstrual Age of Menarche: 15 Review of Systems Const All systems reviewed & are unremarkable except as noted in HPI and below Reports no additional complaints Eyes Reports no additional complaints ENT Reports no additional complaints Card Reports no additional complaints Resp Reports no additional complaints GI Reports no additional complaints Reports as per HPI Musc Reports no additional complaints Skin/Breast Reports system reviewed and no additional complaints, except as documented Neuro Reports no additional complaints Psych Reports no additional complaints Endo Reports no additional complaints Maxwell/Lymph Reports no additional complaints Aller/Immun Reports no additional complaints Results Reviewed Results Reviewed: Date of Service: 05/18/25 US Renal Comparison: US/[place]/SR - US KIDNEY BILATERAL - 03/22/23 12:53 EDT Findings: Right kidney normal size and echotexture, 12.4 cm length. Left kidney normal size and echotexture, 12.7 cm length. Left lower pole calculus measuring 5 mm. No hydronephrosis of either kidney. Normal color Doppler IMPRESSION: 1. Nonobstructing left renal calculus. 2. No acute process. Date 04/01/24--KUB Xray fims reviewed, official reading pending. Date of Service: 03/22/23 EXAMINATION: US RETROPERITONEAL LIMITED (RENAL ONLY) CLINICAL INFORMATION: Calculus of kidney. COMPARISON: X-ray abdomen KUB 12/19/2022. CT abdomen and pelvis without contrast 12/01/2022. Ultrasound retroperitoneal limited (renal only) 06/21/2022 and 04/25/2021. X-ray abdomen KUB 08/16/2021. MRI abdomen with and without contrast 01/21/2013. TECHNIQUE: Real-time imaging of the kidneys. FINDINGS: RIGHT KIDNEY: 12.6 x 4.4 x 5.6 cm (SAG x AP x TRV). The kidney is normal in size, contour, and echogenicity. Renal cortical thickness is normal. No renal calculi or hydronephrosis. Previously seen calcifications on the prior CT scan are not identified on this exam. There is a 4 x 3 x 5 mm benign simple cyst present in the parapelvic region near the upper pole. This is benign and needs no additional imaging or follow-up. No solid renal masses. LEFT KIDNEY: 12.8 x 4.8 x 4.5 cm (SAG x AP x TRV). The kidney is normal in size, contour, and echogenicity. Renal cortical thickness is normal. Previously seen left-sided hydronephrosis on the recent CT scan has resolved presumably with interval passage of the previously seen 3 mm obstructing UPJ stone. In the lower pole on the left there is a linear echogenic focus present with twinkle artifact but no shadowing. No definite calculi or focal parenchymal lesions. No hydronephrosis. IMPRESSION: 1. Resolved left-sided hydronephrosis . 2. Tiny echogenic focus lower pole left kidney without shadowing. Date of Service: 12/01/22 EXAMINATION: CT ABDOMEN AND PELVIS WITHOUT CONTRAST? CLINICAL INFORMATION: Right flank pain? COMPARISON: 01/31/2022? TECHNIQUE: Multidetector volumetric imaging was performed from the superior aspect of the liver through the pubic symphysis. Sagittal and coronal reformatted images were obtained on the technologist's workstation.? This CT examination was performed using dose optimization techniques as appropriate, variously including the following: *Automated exposure control *Adjustment of mA and/or kV according to patient size (this includes techniques or standardized protocols for targeted exams where dose is matched to indication/reason for exam; i.e. extremities or head) *Use of iterative reconstruction technique DLP: 929 mGy-cm FINDINGS: LUNG BASES: The visualized lung bases are unremarkable.? LIVER, GALLBLADDER, AND BILIARY TREE: The liver is normal in size, shape, and attenuation. No focal hepatic lesion or biliary ductal dilatation is present. Gallbladder appears somewhat contracted.? PANCREAS: Unremarkable.? SPLEEN: Unremarkable.? ADRENAL GLANDS: Unremarkable.? KIDNEYS AND URETERS: There is mild right hydronephrosis with no ureteral calculus seen. There are a few scattered calculi in the right kidney measuring up to 3 mm. There is mild left hydronephrosis with a 3 mm calculus at the left ureteropelvic junction. Of note, the degree of hydronephrosis bilaterally appears similar to 01/31/2022. BLADDER: Mildly distended and grossly unremarkable.? GASTROINTESTINAL TRACT: No evidence of bowel obstruction or significant wall thickening. Patient appears to be status post appendectomy. No free fluid or free air is seen.? ABDOMINAL WALL: No significant hernia is appreciated.? LYMPH NODES: Normal. VASCULAR: Mild scattered atherosclerotic calcifications. PELVIC VISCERA: Unremarkable.? OSSEOUS STRUCTURES: Unremarkable.? IMPRESSION: Mild bilateral hydronephrosis with a 3 mm calculus at the left ureteropelvic junction. No right ureteral calculus identified. Of note, the degree of renal pelvic dilation bilaterally appears similar to 01/31/2022. Date of Service: 03/22/23 EXAMINATION: US RETROPERITONEAL LIMITED (RENAL ONLY) CLINICAL INFORMATION: Calculus of kidney. COMPARISON: X-ray abdomen KUB 12/19/2022. CT abdomen and pelvis without contrast 12/01/2022. Ultrasound retroperitoneal limited (renal only) 06/21/2022 and 04/25/2021. X-ray abdomen KUB 08/16/2021. MRI abdomen with and without contrast 01/21/2013. TECHNIQUE: Real-time imaging of the kidneys. FINDINGS: RIGHT KIDNEY: 12.6 x 4.4 x 5.6 cm (SAG x AP x TRV). The kidney is normal in size, contour, and echogenicity. Renal cortical thickness is normal. No renal calculi or hydronephrosis. Previously seen calcifications on the prior CT scan are not identified on this exam. There is a 4 x 3 x 5 mm benign simple cyst present in the parapelvic region near the upper pole. This is benign and needs no additional imaging or follow-up. No solid renal masses. LEFT KIDNEY: 12.8 x 4.8 x 4.5 cm (SAG x AP x TRV). The kidney is normal in size, contour, and echogenicity. Renal cortical thickness is normal. Previously seen left-sided hydronephrosis on the recent CT scan has resolved presumably with interval passage of the previously seen 3 mm obstructing UPJ stone. In the lower pole on the left there is a linear echogenic focus present with twinkle artifact but no shadowing. No definite calculi or focal parenchymal lesions. No hydronephrosis. IMPRESSION: 1. Resolved left-sided hydronephrosis . 2. Tiny echogenic focus lower pole left kidney without shadowing. Assessment & Plan Assessment & Plan (1) Bilateral kidney stones: Code(s): N20.0 - Calculus of kidney Category: Medical Plan Plan - Continue high fluid intake to prevent stone formation. Refill vitamin B6 prescription to aid in stone prevention. - Schedule follow-up ultrasound next year to monitor kidney stone status. Medications: Refilled pyridoxine (vitamin B6) 100 mg PO DAILY 90 tabs 3RF Patient Instructions: The patient had an opportunity to ask questions regarding treatment plan. The patient expressed understanding and agreement with the above treatment plan. The patient is aware they should contact our office by phone for worsening of their current condition or the appearance of new symptoms. Compliance is encouraged with any medications and followup testing that is ordered. It is a privilege to be allowed the opportunity to participate in the urologic care of your patient. If you have any questions or concerns regarding treatment for the above conditions please do not hesitate to contact me. The office telephone contact is [phone]. This note is constructed in part using voice recognition software. While every effort has been made to ensure accuracy apparatus operator errors may have been included. Yours sincerely, Malissa Wilson MD Scribe Plan - Not visible on output: Patient was informed and verbally consented to the use of an ambient scribe for clinic note documentation during this visit. Coding Level of Care Code Est Pt Level 3 (32443) Diagnoses Bilateral kidney stones N20.0
== END 2025-05-21 10:16 | disposition home or self-care (01) ==
LOC: HO.HUSH 09:12
PROVIDERS: PCP Family Medicine; Visit Provider Urology
DX: N20.0 Calculus of kidney (principal); Z13.9 Encounter for screening, unspecified
CPT/HCPCS: 99213

== ENCOUNTER → 2025-05-21 09:11 | Outpatient (BNVA) | payer MEDICAID, SELFPAY | PROVIDERS: PCP Family Medicine; Visit Provider Urology | DX: N20.0 Calculus of kidney (principal) | CPT/HCPCS: 81003; 99212 ==

== ENCOUNTER 2025-06-09 09:20 | Outpatient (AMB) | payer MEDICAID, SELFPAY ==
--- NOTE | 2025-06-09 09:28 | MHC.OFFVIS ---
Vital Signs 06/09/25 09:36 Height 5 ft 6 in Weight 230 lb BMI 37.1 BP 135/75 Blood Pressure Location Lt brachial Position Sitting Pulse 75 Pulse Oximetry (%) 97 Oxygen Delivery Method Room Air Intake Visit Reasons: F/u Abd. pain r/s 02/2025 Intake Note: Patient follow up for abdominal pain and Chronic idiopathic constipation Patient cc: chronic upper middle abdominal pain with bloating, gassy, denies any other GI issues for today visit. Patient needed refill for Ondansetron. Casting And Curing Operator Required: Yes Casting And Curing Operator Name: Ayaka/Addie [facility] [place] [facility] Accompanied by: Self / Same As Patient Allergies citalopram (From Celexa) Adverse Reaction (Mild, Verified 06/09/25 09:35) ANXIETY divalproex sodium (From Depakote) Adverse Reaction (Mild, Verified 06/09/25 09:35) ANXIETY/JUMPY olanzapine (From Zyprexa) Adverse Reaction (Mild, Verified 06/09/25 09:35) ANXIETY paroxetine (From Paxil) Adverse Reaction (Mild, Verified 06/09/25 09:35) ANXIETY HPI HPI F/u Abd. pain r/s 02/2025: Details: Assessment & Plan (1) Chronic idiopathic constipation: Code(s): K59.04 - Chronic idiopathic constipation Category: Medical (2) GERD (gastroesophageal reflux disease): Code(s): K21.9 - Gastro-esophageal reflux disease without esophagitis Category: Medical (3) Nausea and vomiting: Code(s): R11.2 - Nausea with vomiting, unspecified Category: Medical (4) Functional dyspepsia: Code(s): K30 - Functional dyspepsia Category: Medical (5) Thoracic back pain: Code(s): M54.6 - Pain in thoracic spine Category: Medical Plan Martiniquais #[id number] Since decreasing the reglan she is having worse acid brash and reflux, worse in the am. HOwever, her anxiety is better. I think we need to find a middle ground, so I will have her take 1 tab tid and 2 tabs qhs. She has a very sharp LUQ pain that is intermittent and severe. When it comes she will have to bend to make the pain better. It can last form hours to day. She feels like the area is inflamed and goes all the way to my back. The associating with eating is unclear. She denies any urine problems. She denies any CIC or diarrhea. She does have a hx of renal stones. She continues on Linzess 72 micro g, pantoprazole twice a day, and dicyclomine. PE is significant for pain with ROM. I will get a thoracic back xray. Also a very brief trial of prednisone. I encouraged her to keep a journal so she can see whether or not the pain response to the prednisone therapy. ROV 6 weeks. . Orders: Orders XR thoracic spine 2V Today M54.6 - Pain in thoracic spine Medications: New prednisone 2 tabs day 1 and 1 tab for 2 days orally daily; 4 tabs 0RF Changed From metoclopramide HCl (Reglan) please dispense in bottle and NOT in med box!! Decreasing dose 5 mg PO QIDACHS 120 tabs 6RF K30 - Functional dyspepsia To metoclopramide HCl (Reglan) 1 tab tid and 2 qhs orally 4 times a day before meal/bed; please dispense in bottle and NOT in med box!! Decreasing dose 150 tabs 6RF K30 - Functional dyspepsia XR THORACIC SPINE Not obtained TODAY'S VISIT Martiniquais #Laisha She continues on Linzess 72 micro g, pantoprazole twice a day, and dicyclomine. She feels these control her sx. She is c/o pain under the left ribcage now, she also is having a lot of gas and flatulence. She has not been using the LInzess as she feels she has not needed it recently. She notes that it is worse after eating, She can did not have it for a while, she can not identify any new mediations or diet changes triggering this. She tried Mylanta w/o relief. THe pain is sharp, 8/10 at times, and is worse with laying flat and with eating. She has associated nausea. It has been constant for the past week. I will get XR of T spine, rx simethicone 180 and increase bentyl to 2 tabs up to tid. 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 Return office visit in 3 weeks [facility] Medical History Kidney stones Hydronephrosis Obstruction of left ureteropelvic junction (UPJ) due to stone Hematuria Left ureteral stone Low back pain Abdominal cramping Well woman exam Upper abdominal pain Osteoarthritis of right shoulder Migraines Low back pain Renal calculi GERD (gastroesophageal reflux disease) Surgical History Hx of cystoscopy History of surgery History of hernia repair History of hysterectomy History of appendectomy Hx of endoscopy History of colonoscopy Family History Father History of colon cancer Mother History of diabetes mellitus Social History Alcohol intake: never Patient Tobacco Use Status: Never used Tobacco Sexual orientation: Straight/Heterosexual Gender identity: Female Female Reproductive History Menstrual Age of Menarche: 15 Review of Systems Const Denies fatigue, Denies fever(s), Denies night sweats, Denies poor appetite and Denies weight loss ENT Reports Normal hearing present, Denies dental pain, Denies dysphagia, Denies hearing loss, Denies mouth pain, Denies odynophagia, Denies throat swelling, Denies tongue swelling and Reports other (Dentition adequate) Card Reports no additional complaints Resp Reports no additional complaints GI Details: Reports abdominal pain, Denies melena, Reports bloating, Denies hematochezia, Denies constipation, Denies GI cramping, Denies dysphagia, Reports excessive flatus, Denies early satiety, Reports heartburn, Denies diarrhea, Reports nausea, Denies odynophagia, Denies vomiting and Denies hematemesis Reports flank pain Musc Reports back pain Skin/Breast Denies pruritus, Denies lesions, Denies rash and Denies jaundice Neuro Reports Normal hearing present and Denies Abnormal speech present Endo Denies fatigue Aller/Immun Denies throat swelling and Denies tongue swelling Physical Exam Vital Signs: Last Vital Signs Pulse 75 06/09/25 09:36 BP 135/75 06/09/25 09:36 Pulse Ox 97 06/09/25 09:36 Oxygen Delivery Method Room Air 06/09/25 09:36 BMI result Body Mass Index 37.1 Const General: cooperative, no acute distress, well developed and well groomed Nutritional Appearance: well nourished and obese Orientation/consciousness: oriented to person, oriented to place and oriented to time Limitations: language barrier HEENT Head: Yes normocephalic and Yes atraumatic Eyes General: appearance normal, both eyes and all related structures Pupils: Equal, round and reactive pupils present Neck Neck: Yes normal visual inspection and Yes no lymphadenopathy Thyroid: Thyroid normal Resp Effort & Inspection: normal respiratory effort and able to speak in complete sentences Auscultation: clear to auscultation bilaterally Cardio Rate: regular rate Rhythm: regular rhythm Heart sounds: Normal, physiologic split S2 sound present Peripheral pulses: radial pulses present and posterior tibial pulses present GI Inspection: No distended, Yes Abdominal panniculus present and Yes obesity Palpation (GI): Soft to palpation, Tenderness to palpation present (GI) (But also on the ribcage and flank) in the LUQ, no guarding, not rigid and No hepatosplenomegaly present Percussion: Yes normal to percussion Auscultation: normal bowel sounds Rectal Exam - Female: deferred Skin General skin exam: no rashes or lesions noted, turgor normal, skin not dry, no jaundice, No spider nevi and no striae Rashes: no rashes Nails: normal Neuro General: oriented to person, oriented to place and oriented to time Cranial nerves: Yes Equal, round and reactive pupils present and Yes Normal hearing present Speech: No Abnormal speech present Extrem General: Yes normal to inspection, No clubbing, No cyanosis and No edema Psych Appearance: grossly normal and well kempt Mental Status: mental status grossly normal Speech and movement: Normal speech and movement present Affect: normal affect Attitude: cooperative Thought process: Normal thought process present and not confabulating Thought content: Normal thought content present Insight: Fair insight present (Psych) Judgement: Fair judgement present (Psych) Assessment & Plan Assessment & Plan (1) Abdominal pain: Code(s): R10.9 - Unspecified abdominal pain Category: Medical Qualifiers: Abdominal location: unspecified location Qualified Code(s): R10.9 - Unspecified abdominal pain (2) Thoracic back pain: Code(s): M54.6 - Pain in thoracic spine Category: Medical (3) Chronic idiopathic constipation: Code(s): K59.04 - Chronic idiopathic constipation Category: Medical (4) Functional dyspepsia: Code(s): K30 - Functional dyspepsia Category: Medical (5) GERD (gastroesophageal reflux disease): Code(s): K21.9 - Gastro-esophageal reflux disease without esophagitis Category: Medical (6) Nausea and vomiting: Code(s): R11.2 - Nausea with vomiting, unspecified Category: Medical Plan Martiniquais #Ayaka and Addie She continues on Linzess 72 micro g, pantoprazole twice a day, and dicyclomine. She feels these control her sx. She is c/o pain under the left ribcage now, she also is having a lot of gas and flatulence. She has not been using the LInzess as she feels she has not needed it recently. She notes that it is worse after eating, She can did not have it for a while, she can not identify any new mediations or diet changes triggering this. She tried Mylanta w/o relief. THe pain is sharp, 8/10 at times, and is worse with laying flat and with eating. She has associated nausea. It has been constant for the past week. I will get XR of T spine, rx simethicone 180 and increase bentyl to 2 tabs up to tid. 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 Return office visit in 3 weeks Orders: Orders UA CC w/rflx Micro + Cult Today R10.9 - Unspecified abdominal pain XR thoracic spine 2V Today M54.6 - Pain in thoracic spine Medications: New simethicone after meals 180 mg PO QID 120 caps 3RF 30 days Changed From dicyclomine 20 mg PO BID 60 tabs 6RF R10.9 - Unspecified abdominal pain To dicyclomine 40 mg (2 x 20 mg) PO TID 180 tabs 6RF R10.9 - Unspecified abdominal pain Refilled dicyclomine 20 mg PO BID 60 tabs 6RF R10.9 - Unspecified abdominal pain Discontinued sucralfate Discontinued Reason: Doctor's Order 1 g PO TID 90 tabs 0RF Coding Level of Care Code Est Pt Level 3 (28130) Diagnoses Abdominal pain R10.9 Abdominal location: unspecified location Thoracic back pain M54.6 Chronic idiopathic constipation K59.04 Functional dyspepsia K30 GERD (gastroesophageal reflux disease) K21.9 Nausea and vomiting R11.2
[2025-06-09 09:36] VITALS: BP 135/75; PULSE 75; O2SAT 97; BMI 37.1
--- OUTSIDE RECORDS SUMMARY | 2025-06-09 09:54 | XMS_ITS | Clinical Summary ---
Author Organization [facility] ity Address [address] [place] [id number] Care Team Providers Care Skidder Driver Name Role Phone Unavailable Primary Care Provider [...]
--- OUTSIDE RECORDS SUMMARY | 2025-06-09 09:54 | XMS_ITS | Encounter Summary ---
Author Organization [employer] Address [address] [place] [address] 7 [place] [address] Care Team Providers Care Ground Crew Supervisor Name Role Phone Mikala Borges MD Primary Care Provider [phone] Sherrie Etienne RN Unavailable [phone] Encounter Details Date Type Department Care Team ([facility] Contact Info) Description 12/29/2022 Abstract [facility] ADULT [facility]AL [address] [place], [place] [phone] Deuce Baird DMD [address], [place] [phone] Social History Tobacco Use Types Packs/Day Years [...] Upcoming Encounters Date Type Department Care Team ([facility] Contact Info) Description 06/15/2025 11:00 AM EDT Office Visit [facility] [address] [place] [address] Heather Zuluaga MD [address] [place] [address] documented as of this encounter Visit Diagnoses Not on filedocumented in this encounter Care Teams Ground Crew Supervisor Relationship Specialty Start Date End Date Mikala Borges MD [address] [place], [place] [phone] PCP - General Family Medicine 10/29/18 Sherrie Etienne RN [address] [place] [id number] Short Filler Bunch Machine OperatorElementary School Social Worker 10/03/24 01/04/25 documented as of this encounter
--- OUTSIDE RECORDS SUMMARY | 2025-06-09 09:54 | XMS_ITS | Clinical Summary ---
Author Organization [facility] Address [address] [place] [phone] Phone Care Team Providers Care Oracle Erp Architect Name Role Phone Pcp, Unknown Primary Care [...] VACCINES (1 of 2) 2022 COVID-19 VACCINE ( - 2023-2 5 season) 2024 HEPATITIS A VACCINES Aged Out No long [...] topic Medical Devices Not on file Insurance [facility] [address] [place] [address] [place] [address] C3 ACO [facility] C3 ACO [facility] C3 ACO Care Teams Oracle Erp Architect Relationship Specialty Start Date End Date Pcp, Unknown PCP - General 05/24/22 Additional Source Comments The information contained in this document represents components of the legal health record. It is not the complete legal health record.[facility]
== END 2025-06-09 10:25 | disposition home or self-care (01) ==
LOC: HO.HGI 09:21
PROVIDERS: PCP Family Medicine; Visit Provider Nurse Practitioner
DX: R10.9 Unspecified abdominal pain (principal); M54.6 Pain in thoracic spine; K59.04 Chronic idiopathic constipation; K30 Functional dyspepsia; K21.9 Gastro-esophageal reflux disease without esophagitis; R11.2 Nausea with vomiting, unspecified
CPT/HCPCS: 99213

== ENCOUNTER → 2025-06-09 09:20 | Outpatient (BNVA) | payer MEDICAID, SELFPAY | PROVIDERS: PCP Family Medicine; Visit Provider Nurse Practitioner | DX: K21.9 Gastro-esophageal reflux disease without esophagitis (principal); K59.04 Chronic idiopathic constipation; R11.2 Nausea with vomiting, unspecified; K30 Functional dyspepsia; M54.6 Pain in thoracic spine | CPT/HCPCS: 99212 ==

== ENCOUNTER 2025-06-17 12:28 | Outpatient (REF) | payer MEDICAID, SELFPAY ==
--- NOTE | ~2025-06-17 | XR_ITS ---
EXAMINATION: XR THORACIC SPINE CLINICAL INFORMATION: M54.6 - Pain in thoracic spine COMPARISON: April 09, 2017. TECHNIQUE: AP lateral and swimmer's projection. FINDINGS: Mild multilevel endplate sclerosis and small marginal osteophyte formation in the vertebral bodies of the mid thoracic spine. S-shaped curvature of the thoracic spine. No acute cortical disruption. No gross malalignment. No lytic or blastic lesions. XR/XR thoracic spine 2V IMPRESSION: Mild multilevel thoracic spondylosis. Mild scoliosis. Electronically signed by: Orlin Vieira MD 06/17/2025 01:35 PM EDT
--- OUTSIDE RECORDS SUMMARY | 2025-06-17 13:24 | XMS_ITS | Clinical Summary ---
Author Organization [facility] ity Address [id number] [place] [id number] Care Team Providers Care Kier Boiler Name Role Phone Unavailable Primary Care Provider [...]
--- OUTSIDE RECORDS SUMMARY | 2025-06-17 13:24 | XMS_ITS | Clinical Summary ---
Author Organization [facility] Address [address] [place] [phone] Phone Care Team Providers Care Rv Technician Name Role Phone Pcp, Unknown Primary Care [...] topic Medical Devices Not on file Insurance [facility] [address] [place] [place] [address] C3 ACO [facility] C3 ACO [facility] C3 ACO Care Teams Rv Technician Relationship Specialty Start Date End Date Pcp, Unknown PCP - General 05/24/22 Additional Source Comments The information contained in this document represents components of the legal health record. It is not the complete legal health record.[facility]
--- OUTSIDE RECORDS SUMMARY | 2025-06-17 13:24 | XMS_ITS | Encounter Summary ---
Author Organization [employer] Address [address] [place] [address] 7 [place] [address] Care Team Providers Care Straightener Name Role Phone Mikala Borges MD Primary Care Provider [phone] Sherrie Etienne RN Unavailable [phone] Encounter Details Date Type Department Care Team ([facility] st Contact Info) Description 12/29/2022 Abstract [facility] ADULT D[facility]AL [address] [place], [place] [phone] Deuce Baird DMD [address] [place] [address] Social History Tobacco Use Types Packs/Day Years [...] on filedocumented in this encounter Care Teams Straightener Relationship Specialty Start Date End Date Mikala Borges MD [address] [place] [address] PCP - General Family Medicine 10/29/18 Sherrie Etienne RN [address] [place] [phone] Invertebrate PaleontologistField Talent Qualification Specialist 10/03/24 01/04/25 documented as of this encounter
== END 2025-06-17 12:29 | disposition home or self-care (01) ==
LOC: HO.XRAY 12:28
PROVIDERS: PCP Family Medicine; Visit Provider Nurse Practitioner
DX: M54.6 Pain in thoracic spine (principal)
CPT/HCPCS: 72070

== ENCOUNTER → 2025-06-17 12:33 | Outpatient (BNV) | payer MEDICAID, SELFPAY | PROVIDERS: PCP Family Medicine; Visit Provider Radiology Diagnostic Radiology | DX: M47.814 Spondylosis without myelopathy or radiculopathy, thoracic region (principal) | CPT/HCPCS: 72070 ==

== ENCOUNTER 2025-07-03 10:53 | Outpatient (AMB) | payer MEDICAID, SELFPAY ==
--- OUTSIDE RECORDS SUMMARY | 2025-07-01 11:15 | XMS_ITS | Encounter Summary ---
Author Organization [employer] Address [address] [place] [address] 7 [place] [address] Care Team Providers Care Cell Stripper Final Name Role Phone Mikala Borges MD Primary Care Provider [phone] Sherrie Etienne RN Unavailable [phone] Willow Hernandez Unavailable Reason for Visit * Reason Comments sick onsite Encounter Details Date Type Department Care Team (Late st Contact Info) Description 07/01/2025 11:15 AM EDT Office Visit [facility] [address] [place], [place] [phone] Mikala Borges MD [address] [place], [place] [phone] Chronic bilateral low back pain with right-sided sciatica (Primary Dx) Social History Tobacco Use [...] got money to buy more: Never True 12/01/2024 Within the past 12 months,th e food you bought just didn't last and you didn't have enough money to get more: Never True 12/2024 Transportation Answer Date Recorded In the past [...] Sign Reading Time Taken Comments Blood Pressure 110/72 07/01/2025 10:54 AM EDT Pulse 76 07/01/2025 10:54 AM EDT Temperature 37.2 C (98.9 F) 07/01/2025 10:54 AM EDT Respiratory Rate 17 07/01/2025 10:54 AM EDT Oxygen Saturation 98% 07/01/2025 10:54 AM EDT Inhaled Oxygen Concentration - - Weight 106 kg (233 lb 12.8 oz) 07/01/2025 10:54 AM EDT Height 167.6 cm (5' 6 ) 07/01/2025 10:54 AM EDT Body Mass Index 37.74 07/01/2025 10:54 AM EDT documented in this encounter Miscellaneous Notes * Assessment & Plan Note - Kristen Ly MA - 07/02/2025 11:56 PM EDT Associated Problem(s): Chronic bilateral low back pain with right-sided sciatica -worsened hronic back pain - MRI 03/05/24 [...] will prescribe Meloxicam - upcoming appointment with renewals specialist - home back exercise as tolerated documented in this encounter Plan of Treatment Upcoming Encounters Date Type Department Care Team (Late st Contact Info) Description 08/24/2025 10:00 AM EDT Office Visit [facility] [address] [place] [address] Mikala Borges MD [address] [place] [phone] documented as of this encounter Visit Diagnoses Diagnosis Chronic bilateral low back pain with right-sided sciatica- Primary documented in this encounter Additional Health Concerns Assessment Noted Time PHQ-9 Depression Total Score: 6 08/12/20 24 1:10 PM EDT documented as of this encounter Care Teams Cell Stripper Final Relationship Specialty Start Date End Date Mikala Borges MD [address] [place] [address] PCP - General Family Medicine 10/29/18 Sherrie Etienne, ALBERTO [address] [place] [phone] Registered Nurse Family Medicine 06/30/25 Willow Hernandez 06/30/25 documented as of this encounter
[2025-07-03 10:56] VITALS: BP 136/82; PULSE 67; BMI 37.1
--- NOTE | 2025-07-03 10:56 | A.OFFVIS_ITS ---
Vital Signs 07/03/25 10:56 Height 5 ft 6 in Weight 230 lb 2.601 oz BMI 37.1 BP 136/82 Blood Pressure Location Lt brachial Position Sitting Pulse 67 Intake Visit Reasons: 4 week LUQ/rib/back pain Intake Note: Patient follow up for abdominal pain, CIC, and XR results. CC: Patient c/o a lot of gas, nausea, and LUQ abd pain. Kiln Firer Helper Required: Yes Kiln Firer Helper Language: [place]an Accompanied by: Self / Same As Patient Allergies citalopram (From Celexa) Adverse Reaction (Mild, Verified 07/03/25 11:32) ANXIETY divalproex sodium (From Depakote) Adverse Reaction (Mild, Verified 07/03/25 11:32) ANXIETY/JUMPY olanzapine (From Zyprexa) Adverse Reaction (Mild, Verified 07/03/25 11:32) ANXIETY paroxetine (From Paxil) Adverse Reaction (Mild, Verified 07/03/25 11:32) ANXIETY HPI HPI 4 week LUQ/rib/back pain: Details: ssessment & Plan (1) Abdominal pain: Code(s): R10.9 - Unspecified abdominal pain Category: Medical Qualifiers: Abdominal location: unspecified location Qualified Code(s): R10.9 - Unspecified abdominal pain (2) Thoracic back pain: Code(s): M54.6 - Pain in thoracic spine Category: Medical (3) Chronic idiopathic constipation: Code(s): K59.04 - Chronic idiopathic constipation Category: Medical (4) Functional dyspepsia: Code(s): K30 - Functional dyspepsia Category: Medical (5) GERD (gastroesophageal reflux disease): Code(s): K21.9 - Gastro-esophageal reflux disease without esophagitis Category: Medical (6) Nausea and vomiting: Code(s): R11.2 - Nausea with vomiting, unspecified Category: Medical Plan [place] #Rachel and Addie She continues on Linzess 72 micro g, pantoprazole twice a day, and dicyclomine. She feels these control her sx. She is c/o pain under the left ribcage now, she also is having a lot of gas and flatulence. She has not been using the LInzess as she feels she has not needed it recently. She notes that it is worse after eating, She can did not have it for a while, she can not identify any new mediations or diet changes triggering this. She tried Mylanta w/o relief. THe pain is sharp, 8/10 at times, and is worse with laying flat and with eating. She has associated nausea. It has been constant for the past week. I will get XR of T spine, rx simethicone 180 and increase bentyl to 2 tabs up to tid. 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 Return office visit in 3 weeks Orders: Orders UA CC w/rflx Micro + Cult Today R10.9 - Unspecified abdominal pain XR thoracic spine 2V Today M54.6 - Pain in thoracic spine Medications: New simethicone after meals 180 mg PO QID 120 caps 3RF 30 days Changed From dicyclomine 20 mg PO BID 60 tabs 6RF R10.9 - Unspecified abdominal pain To dicyclomine 40 mg (2 x 20 mg) PO TID 180 tabs 6RF R10.9 - Unspecified abdominal pain Refilled dicyclomine 20 mg PO BID 60 tabs 6RF R10.9 - Unspecified abdominal pain Discontinued sucralfate Discontinued Reason: Doctor's Order 1 g PO TID 90 tabs 0RF LABS: UA NOT OBTAINED X-RAY THORACIC SPINE 06/17/2025 FINDINGS: Mild multilevel endplate sclerosis and small marginal osteophyte formation in the vertebral bodies of the mid thoracic spine. S-shaped curvature of the thoracic spine. No acute cortical disruption. No gross malalignment. No lytic or blastic lesions. XR/XR thoracic spine 2V IMPRESSION: Mild multilevel thoracic spondylosis. Mild scoliosis. TODAY'S VISIT [place] #Hussain Jerad [facility] Medical History Kidney stones Hydronephrosis Obstruction of left ureteropelvic junction (UPJ) due to stone Hematuria Left ureteral stone Low back pain Abdominal cramping Well woman exam Upper abdominal pain Osteoarthritis of right shoulder Migraines Low back pain Renal calculi GERD (gastroesophageal reflux disease) Surgical History Hx of cystoscopy History of surgery History of hernia repair History of hysterectomy History of appendectomy Hx of endoscopy History of colonoscopy Family History Father History of colon cancer Mother History of diabetes mellitus Social History Alcohol intake: never Patient Tobacco Use Status: Never used Tobacco Sexual orientation: Straight/Heterosexual Gender identity: Female Female Reproductive History Menstrual Age of Menarche: 15 Review of Systems Const Denies fatigue, Denies fever(s), Denies night sweats, Denies poor appetite and Denies weight loss ENT Reports Normal hearing present, Denies dental pain, Denies dysphagia, Denies hearing loss, Denies mouth pain, Denies odynophagia, Denies throat swelling, Den ies tongue swelling and Reports other (Dentition adequate) Card Reports no additional complaints Resp Reports no additional complaints GI Details: Reports abdominal pain (Really under left ribcage), Denies melena, Denies bloating, Denies hematochezia, Reports constipation, Denies GI cramping, Denies dysphagia, Denies excessive flatus, Denies early satiety, Reports heartburn, Denies diarrhea, Denies nausea, Denies odynophagia, Denies vomiting and Denies hematemesis Musc Reports back pain, Reports myalgias, Reports radiating pain into limb and Reports stiffness Skin/Breast Denies pruritus, Denies lesions, Denies rash and Denies jaundice Neuro Reports Normal hearing present and Denies Abnormal speech present Endo Denies fatigue Aller/Immun Denies throat swelling and Denies tongue swelling Physical Exam Vital Signs: Last Vital Signs Pulse 67 07/03/25 10:56 BP 136/82 07/03/25 10:56 BMI result Body Mass Index 37.1 Const General: cooperative, no acute distress, well developed and well groomed Nutritional Appearance: well nourished and obese morbidly obese Orientation/consciousness: oriented to person, oriented to place and oriented to time Limitations: language barrier HEENT Head: Yes normocephalic and Yes atraumatic Eyes General: appearance normal, both eyes and all related structures Pupils: Equal, round and reactive pupils present Neck Neck: Yes normal visual inspection and Yes no lymphadenopathy Thyroid: Thyroid normal Resp Effort & Inspection: normal respiratory effort and able to speak in complete sentences Auscultation: clear to auscultation bilaterally Cardio Rate: regular rate Rhythm: regular rhythm Heart sounds: Normal, physiologic split S2 sound present Peripheral pulses: radial pulses present and posterior tibial pulses present GI Inspection: No distended, Yes Abdominal panniculus present and Yes obesity Palpation (GI): Soft to palpation, nontender, no guarding, not rigid and No hepatosplenomegaly present Percussion: Yes normal to percussion Auscultation: normal bowel sounds Rectal Exam - Female: deferred Skin General skin exam: no rashes or lesions noted, turgor normal, skin not dry, no jaundice, No spider nevi and no striae Rashes: no rashes Nails: normal Neuro General: oriented to person, oriented to place and oriented to time Cranial nerves: Yes Equal, round and reactive pupils present and Yes Normal hearing present Speech: No Abnormal speech present Extrem General: Yes normal to inspection, No clubbing, No cyanosis and No edema Psych Appearance: grossly normal and well kempt Mental Status: mental status grossly normal Speech and movement: Normal speech and movement present Affect: normal affect Attitude: cooperative Thought process: Normal thought process present and not confabulating Thought content: Normal thought content present Insight: Limited insight present (Psych) Judgement: Limited judgement present (Psych) Results Reviewed Results Reviewed: X-RAY THORACIC SPINE 06/17/2025 FINDINGS: Mild multilevel endplate sclerosis and small marginal osteophyte formation in the vertebral bodies of the mid thoracic spine. S-shaped curvature of the thoracic spine. No acute cortical disruption. No gross malalignment. No lytic or blastic lesions. XR/XR thoracic spine 2V IMPRESSION: Mild multilevel thoracic spondylosis. Mild scoliosis. Assessment & Plan Assessment & Plan (1) Chronic idiopathic constipation: Code(s): K59.04 - Chronic idiopathic constipation Category: Medical (2) GERD (gastroesophageal reflux disease): Code(s): K21.9 - Gastro-esophageal reflux disease without esophagitis Category: Medical (3) Functional dyspepsia: Code(s): K30 - Functional dyspepsia Category: Medical (4) Nausea and vomiting: Code(s): R11.2 - Nausea with vomiting, unspecified Category: Medical (5) Thoracic back pain: Code(s): M54.6 - Pain in thoracic spine Category: Medical (6) Thoracic and lumbosacral neuritis: Code(s): M54.14 - Radiculopathy, thoracic region; M54.17 - Radiculopathy, lumbosacral region Category: Medical Plan [place] #Hussain Live She continues on Linzess 72 micro g, pantoprazole twice a day, and dicyclomine. Her thoracic spine x-ray shows osteoarthritis with an S shaped scoliosis. I let her know that this could be the cause of her persistent pain under the rib, but it is really not conclusive without an MRI to see if there is impingement of the soft tissues. So far, we have not been able to uncover a GI cause for this which may me think that it might be musculoskeletal. She currently sees pain management and is having severe trouble with lumbar radiculopathy, so I will see if we can get an MRI of her thoracic spine and then she can use this to see if the pain management group can help her with this problem as well. I did let her know that sometimes she has to attempt physical therapy for the problem in question before insurance will pay for an MRI. Other than this she is happy with her GI regimen. Return office visit in 6 months Orders: Orders MR thoracic spine wo con Today M54.14 - Radiculopathy, thoracic region, M54.17 - Radiculopathy, lumbosacral region, M54.6 - Pain in thoracic spine Medications: Refilled ondansetron 4 mg PO Q6H PRN 12 tabs 0RF nausea and vomiting pantoprazole 40 mg PO BID 60 tabs 6RF simethicone after meals 180 mg PO QID 120 caps 6RF 30 days linaclotide (Linzess) 72 mcg PO QAM 30 caps 6RF K59.04 - Chronic idiopathic constipation dicyclomine 40 mg (2 x 20 mg) PO TID 180 tabs 1RF R10.9 - Unspecified abdominal pain Discontinued metoclopramide HCl (Reglan) Discontinued Reason: Doctor's Order 1 tab tid and 2 qhs orally 4 times a day before meal/bed; please dispense in bottle and NOT in med box!! Decreasing dose 150 tabs 6RF K30 - Functional dyspepsia Coding Level of Care Code Est Pt Level 3 (18223) Diagnoses Chronic idiopathic constipation K59.04 GERD (gastroesophageal reflux disease) K21.9 Functional dyspepsia K30 Nausea and vomiting R11.2 Thoracic back pain M54.6 Thoracic and lumbosacral neuritis M54.14; M54.17
--- OUTSIDE RECORDS SUMMARY | 2025-07-03 11:57 | XMS_ITS | Encounter Summary ---
Author Organization [employer] Address [address] [place] [address] 7 [place] [address] Care Team Providers Care Accounts Receivable Processor Name Role Phone Mikala Borges MD Primary Care Provider [phone] Sherrie Etienne RN Unavailable [phone] Sherrie Etienne RN Unavailable [phone] Willow Hernandez Unavailable Reason for Referral * Consultation (Routine) - Closed Specialty Diagnoses / Procedures Referred By Montserrat t Referred To Contact Orthopaedic Surgery Diagnoses Chronic bilateral low back pain with right-sided sciatica Bulging lumbar disc Mikala Borges MD [address] [place] [address] Phone: tel: fax: [facility] [address] [place] [address] Phone: tel: fax: Referral ID Status Reason Start Date Expiration Date V isits Requested Visits Authorized [id number] Closed Specialty Services Required 04/09/2024 04/09/2025 10 10 Encounter Details Date Type Department Care Team (Late st Contact Info) Description 04/03/2024 Orders Only [facility] MEDICINE [address] [place] [address] Mikala Borges MD [address] [place], [place] [phone] Chronic bilateral low back pain with right-sided [...] Description 08/24/2025 10:00 AM EDT Office Visit [facility] [address] [place], [place] [phone] Mikala Borges MD [address] [place] [address] documented as of this encounter Procedures Procedure Name Priority Date/Time Associated Diagnosis Comments AMB REFERRAL TO ORTHOPAEDIC SURGERY Routine 12/31/2024 Chronic bilateral low back pain with right-sided sciatica Bulging lumbar disc XR KUB AND UPRIGHT 2 VIEWS Routine 04/02/2024 8:29 AM EDT documented in this encounter Results * Referral to Orthopaedic Surgery (12/31/2024) Mikala Borges MD OUTPATIENT REFERRAL ORDERABLES F inal Result * XR KUB and Upright 2 Views (04/02/2024 8:29 AM EDT) Anatomical Region Laterality Modality Radiographic Winnie ging 04/02/2024 8:29 AM EDT Narrative 04/15/2024 3:36 PM EDT [address] [address] XRay Report Signed Patient: Carmelina Etienne MR#: [id number] : 1970 Acct:[id number] Age/Sex: 53 / F ADM Date: 04/02/24 Loc: HO.GORDON Attending Dr: Malissa Wilson MD Ordering Physician: Malissa Wilson MD Date of Service: 04/02/24 Procedure(s): XR KUB Accession Number(s): [id number] cc: Malissa Wilson MD; Mikala Borges MD [...] in OV> 04/15/24 1532 DD/ 0829 TD/TT: Cleat Blanker: KELLIE Procedure Note Donotuseinterpreter, Image - 04/15/2024 [facility] [address] [place] [address] XRay Report Signed Patient: Carmelina Etienne EMR#: [id number] : 1970Acct:[id number] Age/Sex: 53 / FADM Date: 04/02/24 Loc: HO.XRAY Attending Dr: Malissa Wilson MD Ordering Physician: Malissa Wilson MD Date of Service: 04/02/24 Procedure(s): XR KUB Accession Number(s): [id number] cc: Malissa Wilson MD; Miklaa Borges MD EXAMINATION: XR ABDOMEN KUB CLINICAL [...] Real MD in OV> 04/15/24 1532 DD/ 8 TD/TT: Cleat Blanker: KELLIE [facility] External Provider IMG XR PROCEDURES Final Result documented in this encounter Visit Diagnoses Diagnosis Chronic bilateral low back pain with right-sided sciatica- Primary Bulging lumbar disc documented in this encounter Additional Health Concerns Assessment Noted Time PHQ-9 Depression Total Score: 0 01/22/20 12:57 PM EDT documented as of this encounter Care Teams Accounts Receivable Processor Relationship Specialty Start Date End Date Mikala Borges MD [address] [place] [address] PCP - General Family Medicine 10/29/18 Sherrie Etienne RN [address] [place] [address] Intraoperative Neuro TechChief Safety Officer 10/03/24 01/04/25 Sherrie Etienne RN 505 [facility] [place] [address] Registered Nurse Family Medicine 06/30/25 Willow Hernandez 06/30/25 documented as of this encounter
--- OUTSIDE RECORDS SUMMARY | 2025-07-03 11:57 | XMS_ITS | Encounter Summary ---
Author Organization [employer] Address [address] [place] [address] 7 [place] [address] Care Team Providers Care Chemist Steroids Name Role Phone Mikala Borges MD Primary Care Provider [phone] Sherrie Etienne RN Unavailable [phone] Sherrie Etienne RN Unavailable [phone] Willow Hernandez Unavailable Reason for Referral * Imaging (Routine) - Closed Specialty Diagnoses / Procedures Referred By Contac t Referred To Contact Radiology Diagnoses Chronic bilateral low back pain without sciatica Procedures MR Lumbar Spine w/o Contrast Mikala Borges MD [address] [place] [address] Phone: tel: fax: [address] Phone: tel: fax: Referral ID Status Reason Start Date Expiration Date Visits Re quested Visits Authorized [id number] Closed 02/05/2024 02/04/2025 1 1 Encounter Details Date Type Department Care Team (Late st Contact Info) Description 02/05/2024 Orders Only [facility] MEDICINE [address] [place] [address] Mikala Borges MD [address] [place], [place] [phone] Chronic bilateral low back pain without sciatica [...] Description 08/24/2025 10:00 AM EDT Office Visit [facility] [address] [place] [address] Mikala Borges MD [address] [place], [place] [phone] documented as of this encounter Procedures Procedure [...] AM EDT Narrative 03/25/2024 9:26 AM EDT [place] [address] Magnetic Resonance Report Signed Patient: Carmelina Etienne MR#: [id number] : 1970 Acct:[id number] Age/Sex: 53 / F ADM Date: 03/05/24 Loc: HO.MRI Attending Dr: Mikala Borges MD Ordering Physician: Mikala Borges MD Date of Service: 03/05/24 Procedure(s): MR lumbar spine wo con Accession Number(s): [id number] cc: Mikala Borges MD EXAMINATION: MR LUMBAR [...] in OV> 03/25/24 0922 DD/ 1014 TD/TT: Eddy Current Inspector: Procedure Note Donotuseinterpreter, Image - 03/25/[address] [address] Magnetic Resonance Report Signed Patient: Carmelina Etienne EMR#: [id number] : 1970Acct:[id number] Age/Sex: 53 / FADM Date: 03/05/24 Loc: HO.MRI Attending Dr: Mikala Borges MD Ordering Physician: Mikala Borges MD Date of Service: 03/05/24 Procedure(s): MR lumbar spine wo con Accession Number(s): [id number] cc: Mikala Borges MD EXAMINATION: MR LUMBAR [...] in OV> 03/25/24 0922 DD/ 1014 TD/TT: Eddy Current Inspector: Mikala Borges MD IMG MRI PROCEDURES Edited Result - Final documented in this encounter Visit Diagnoses Diagnosis Chronic bilateral low back pain without sciatica- Primary documented in this encounter Additional Health Concerns Assessment Noted Time PHQ-9 Depression Total Score: 0 01/22/20 24 12:57 PM EDT documented as of this encounter Care Teams Chemist Steroids Relationship Specialty Start Date End Date Mikala Borges MD [address] [place] [address] PCP - General Family Medicine 10/29/18 Sherrie Etienne RN [address] [place] [address] High School Band DirectorDrum Sander 10/03/24 01/04/25 Sherrie Etienne RN [address] [place] [address] Registered Nurse Family Medicine 06/30/25 Willow Hernandez 06/30/25 documented as of this encounter
--- OUTSIDE RECORDS SUMMARY | 2025-07-03 11:57 | XMS_ITS | Clinical Summary ---
Author Organization [facility] Address [address] [place] [phone] Phone Care Team Providers Care Microbiology Director Name Role Phone Pcp, Unknown Primary Care [...] 2022 ZOSTER VACCINES (1 of 2) 2022 INFLUENZA VACCINE (#1) 2025 COVID-19 VACCINE (1 - 2023-2 5 season) 2025 HEPATITIS A VACCINES Aged Out No long [...] topic Medical Devices Not on file Insurance [facility] C3 ACO [facility] C3 ACO Care Teams Microbiology Director Relationship Specialty Start Date End Date Pcp, Unknown PCP - General 05/24/22 Additional Source Comments The information contained in this document represents components of the legal health record. It is not the complete legal health record.[facility]
--- OUTSIDE RECORDS SUMMARY | 2025-07-03 11:57 | XMS_ITS | Encounter Summary ---
Author Organization [email or web address] Address [address] [place] [address] 7 [place] [address] Care Team Providers Care Private Branch Exchange Operator Name Role Phone Mikala Borges MD Primary Care Provider [phone] Sherrie Etienne RN Unavailable [phone] Sherrie Etienne RN Unavailable [phone] Willow Hernandez Unavailable Encounter Details Date Type Department Care Team ([facility] Contact Info) Description 12/29/2022 Abstract [facility] ADULT DENTAL [address] [place] [address] Deuce Baird, DMD [address] [place], [place] [phone] Social History Tobacco Use Types Packs/Day Years [...] Department Care Team (Late Contact Info) Description 08/24/2025 10:00 AM EDT Office Visit [facility] MEDICINE [address] [place] [address] Mikala Borges MD [address] [place] [address] documented as of this encounter Visit Diagnoses Not on filedocumented in this encounter Care Teams Private Branch Exchange Operator Relationship Specialty Start Date End Date Mikala Borges MD [address] [place] [address] PCP - General Family Medicine 10/29/18 Sherrie Etienne RN [address] [facility] [place] [address] Sheet Metal TechnicianElectroplating Sales Representative 10/03/24 01/04/25 Sherrie Etienne RN [address] [facility] [place] [address] Registered Nurse Family Medicine 06/30/25 Willow Hernandez 06/30/25 documented as of this encounter
--- OUTSIDE RECORDS SUMMARY | 2025-07-03 11:57 | XMS_ITS | Encounter Summary ---
Author Organization [employer] Address [address] [place] [address] [place] [address] Care Team Providers Care Butcher Assistant Name Role Phone Mikala Bogres MD Primary Care Provider [phone] Sherrie Etienne RN Unavailable [phone] Sherrie Etienne RN Unavailable [phone] Willow Hernandez Unavailable Reason for Visit * Reason Onset Date Comments Appointment Request 07/13/2023 Encounter Details Date Type Department Care Team (Late st Contact Info) Description 07/13/2023 Telephone [facility] MEDICINE [address] [place], [place] [phone] Mikala Borges MD [address] [place], [place] [phone] Appointment Request Social History Tobacco Use Types [...] Description 08/24/2025 10:00 AM EDT Office Visit [facility] [address] [place], [place] [phone] Mikala Borges MD [address] [place], [place] [phone] documented as of this encounter Visit Diagnoses Not on filedocumented in this encounter Care Teams Butcher Assistant Relationship Specialty Start Date End Date Mikala Borges MD [address] [place], [place] [phone] PCP - General Family Medicine 10/29/18 Sherrie Etienne RN [address] [place] [address] Document SpecialistWeb Producer 10/03/24 01/04/25 Sherrie Etienne RN [address] [place] [address] Registered Nurse Family Medicine 06/30/25 Willow Hernandez 06/30/25 documented as of this encounter
--- OUTSIDE RECORDS SUMMARY | 2025-07-03 11:57 | XMS_ITS | Encounter Summary ---
Author Organization [employer] Address [address] [place] [address] 7 [place] [address] Care Team Providers Care Mophead Trimmer And Wrapper Name Role Phone Mikala Borges MD Primary Care Provider [phone] Sherrie Etienne RN Unavailable [phone] Sherrie Etienne RN Unavailable [phone] Willow Hernandez Unavailable Encounter Details Date Type Department Care Team (Late st Contact Info) Description 08/03/2023 Abstract [facility] MEDICINE [address] [place], [place] [phone] Mikala Borges MD [address] [place], [place] [phone] Social History Tobacco Use Types Packs/Day Years [...] Description 08/24/2025 10:00 AM EDT Office Visit [facility] MED[facility] [address] [place] [address] Mikala Borges MD [address] [place] [address] documented as of this encounter Procedures Procedure Name Priority Date/Time Associated Diagnosis Comments COLONOSCOPY Routine 05/02/2023 documented in this encounter Results * Colonoscopy (05/02/2023) Colonoscopy Normal Normal Lisa Sanchez MD HEALTH MAINTENANCE Final Result documented in this encounter Visit Diagnoses Not on filedocumented in this encounter Care Teams Mophead Trimmer And Wrapper Relationship Specialty Start Date End Date Mikala Borges MD [address] [place] [address] PCP - General Family Medicine 10/29/18 Sherrie Etienne RN [address] [place] [address] Seal SkinnerKickboxing Instructor 10/03/24 01/04/25 Sherrie Etienne RN [address] [place] [address] Registered Nurse Family Medicine 06/30/25 Willow Hernandez 06/30/25 documented as of this encounter
--- OUTSIDE RECORDS SUMMARY | 2025-07-03 11:57 | XMS_ITS | Encounter Summary ---
Author Organization [employer] Address [address] [place] [address] 7 [place] [address] Care Team Providers Care Marine Insulator Name Role Phone Mikala Borges MD Primary Care Provider [phone] Sherrie Etienne RN Unavailable [phone] Sherrie Etienne RN Unavailable [phone] Willow Hernandez Unavailable Reason for Visit * Reason Comments Med Refill Encounter Details Date Type Department Care Team (Late Contact Info) Description 03/31/2023 Refill [facility] MED[facility]INE [address] [place], [place] [phone] Reinier Monroy MD [address] [place], [place] [phone] Other insomnia Social History Tobacco Use Types [...] Description 08/24/2025 10:00 AM EDT Office Visit [facility] [address] [place], [place] [phone] Mikala Borges MD [address] [place] [address] documented as of this encounter Visit Diagnoses Diagnosis Other insomnia documented in this encounter Care Teams Marine Insulator Relationship Specialty Start Date End Date Mikala Borges MD [address] [place] [address] PCP - General Family Medicine 10/29/18 Sherrie Etienne RN [address] [place] [address] Batch AttendantCustom Shop Worker 10/03/24 01/04/25 Sherrie Etienne RN [address] [place] [address] Registered Nurse Family Medicine 06/30/25 Willow Hernandez 06/30/25 documented as of this encounter
--- OUTSIDE RECORDS SUMMARY | 2025-07-03 11:57 | XMS_ITS | Encounter Summary ---
Author Organization [employer] Address [address] [place] [address] 7 [place] [address] Care Team Providers Care Quality Assurance Monitor Chassis Name Role Phone Mikala Borges MD Primary Care Provider [phone] Sherrie Etienne RN Unavailable [phone] Sherrie Etienne RN Unavailable [phone] Willow Hernandez Unavailable Reason for Visit * Reason Comments Med Refill Encounter Details Date Type Department Care Team (Late st Contact Info) Description 01/21/2024 Refill [facility] MEDICINE [address] [place], [place] [phone] Mikala Borges MD [address] [place], [place] [phone] Other insomnia Social History Tobacco Use Types [...] AM EDT documented as of this encounter Functional Status * Over the past 2 weeks, how often have you been bothered by any of the following problems? Question Answer Date of Assessment Author Patient Health Questionnaire-2 Score 0 01/22/2024 12:57 PM EDT Alyssa Marcum [place] * Over the past 2 weeks, how often have you been bothered by any of the following problems? Question Answer Date of Assessment Author Little interest or pleasure in doing things Not at all 01/22/2024 12:57 PM EDT Alyssa Siegel MA Feeling down, depressed, or hopeless Not at all 01/22/2024 12:57 PM EDT Alyssa Siegel [place] Trouble falling or staying asleep, or sleeping too much Not at all 01/22/2024 12:57 PM EDT Alyssa Vaca [place] Feeling tired or having little energy Not at all 01/22/2024 12:57 PM MICHAELT Alyssa Siegel [place] Poor appetite or overeating Not at all 01/22/2024 12 :57 PM EDT Alyssa Siegel MA Feeling bad about yourself - or that you are a failure or have let yourself or your family down Not at all 01/22/2024 12:57 PM EDT Alyssa Siegel MA Trouble concentrating on things, such as reading the newspaper or watching television Not at all 01/22/2024 12:57 PM EDT Alyssa Siegel MA Moving or speaking so slowly that other people could have noticed? Or the opposite - being so fidgety or restless that you have been moving around a lot more than usual. Not at all 01/22/2024 12:57 PM EDT Alyssa Eldridge MA Thoughts that you would be better off or hurting yourself in some way Not at all 01/22/2024 12:57 PM EDT Alyssa Siegel MA Patient Health Questionnaire-9 Score 0 01/22/2024 12:57 PM EDT Alyssa Marcum [place] documented as of this encounter Plan of Treatment Upcoming Encounters Date Type Department Care Team (Late st Contact Info) Description 08/24/2025 10:00 AM EDT Office Visit [facility] MEDICINE [address] [place] [address] Mikala Borges MD [address] [place] [address] documented as of this encounter Visit Diagnoses Diagnosis Other insomnia documented in this encounter Care Teams Quality Assurance Monitor Chassis Relationship Specialty Start Date End Date Mikala Borges MD [address] [place] [address] PCP - General Family Medicine 10/29/18 Sherrie Etienne RN [address] [place] [address] Monkey BreederLehr Tender 10/03/24 01/04/25 Sherrie Etienne RN [address] [place] [address] Registered Nurse Family Medicine 06/30/25 Willow Hernandez 06/30/25 documented as of this encounter
--- OUTSIDE RECORDS SUMMARY | 2025-07-03 11:57 | XMS_ITS | Clinical Summary ---
Author Organization [employer] Address [address] [place] [address] [address] [place] [address] Care Team Providers Care Revolving Field Assembler Name Role Phone Mikaal Borges MD Primary Care Provider [phone] Sherrie Etienne RN Unavailable [phone] Willow Hernandez Unavailable Allergies Active Allergy Reactions Criticality Noted Date Comments Citalopram 11/21/2013 Olanzapine Other reaction(s): unspecified Paroxetine 02/26/2014 Paroxetine Hcl 05/24/2022 Valproic Acid 11/21/2013 Medications ibuprofen 600 MG tablet Take 1 tablet by mouth in the morning and 1 tablet at noon and 1 tablet in the evening. 04/25/20 22 Active linaCLOtide (Linzess) 72 MCG capsule Take 1 capsule by mouth. Active pantoprazole (ProtoNix) 40 MG EC tablet Take 1 tablet by mouth every 12 (twelve) hours. 07/18/20 22 Active cetirizine (ZyrTEC) 10 MG tabletIndications: Allergic rhinitis due to other allergic trigger, unspecified seasonality TAKE 1 TABLET BY MOUTH EVERY DAY 90 tablet 1 01/02/20 23 Active melatonin 3 MG tablet TAKE 1 TO 2 TABLETS BY MOUTH 2 HOURS BEFORE BEDTIME NEEDED FOR SLEEP 60 tablet 09/30/20 24 Active montelukast (Singulair) 10 MG tabletIndications: Moderate persistent asthma without complication TAKE 1 TABLET BY MOUTH EVERY EVENING 90 tablet 3 11/12/19 25 Active Blood Pressure kit 1 each 2 times daily. 1 kit 11/24/19 25 026 Active albuterol 108 (90 Base) MCG/ACT inhaler Inhale 2 puffs every 4 (four) hours if needed for shortness of breath or wheezing. 18 g 3 11/24/19 25 Active Spacer/Aero-Holdin g Chambers (OptiChamber Graciela) misc 1 each every 4 (four) hours if needed (asthma). 1 each 11/24/19 25 Active Diclofenac Sodium 1 % gelIndications:Acu te pain of left knee Apply 4 g topically if needed in the morning, at noon, and at bedtime (pain). 100 g 12/08/19 25 Active estradiol (Estrace) 0.1 MG/GM vaginal cream Insert 1 g vaginally x 14 days, then use 1 g vaginally twice weekly ongoing after that 42.5 g 01/14/20 25 Active Advair HFA 230-21 MCG/ACT inhalerIndications :Moderate persistent asthma without complication INHALE 2 PUFFS BY MOUTH TWICE DAILY IN THE MORNING AND IN THE EVENING. RINSE MOUTH AFTER USING. 12 g 11 03/09/20 25 Active cholecalciferol (Vitamin D-3) 25 MCG tablet TAKE 1 TABLET BY MOUTH EVERY MORNING 90 tablet 3 04/08/20 25 Active acetaminophen (Tylenol) 500 MG tabletIndications: Acute pain of left knee Take 1-2 tablets by mouth every 8 hours as needed for pain or fever 100 tablet 1 04/23/20 25 Active dicyclomine (Bentyl) 20 MG tablet Take 1 tablet by mouth 2 times daily. 05/15/20 25 Active ketorolac (Toradol) 10 MG tablet TAKE 1 TABLET BY MOUTH EVERY 8 HOURS NEEDED FOR PAIN FOR 3 DAYS 08/18/20 24 Active LORazepam (Ativan) 1 MG tablet TAKE 1 TABLET BY MOUTH 1 HOUR BEFORE PROCEDURE 09/10/20 24 Active metoclopramide (Reglan) 5 MG tablet TAKE 1 TABLET BY MOUTH THREE TIMES DAILY AND TAKE 2 TABLETS BY MOUTH AT BEDTIME 12/11/19 25 Active ondansetron ODT (Zofran-ODT) 4 MG disintegrating tablet DISSOLVE 1 TABLET BY MOUTH EVERY 6 HOURS NEEDED FOR NAUSEA AND VOMITING 08/18/20 24 Active pregabalin (Lyrica) 100 MG capsule Take 100 mg by mouth at bedtime. 02/18/20 25 Active pyridoxine (Vitamin B-6) 100 MG tablet Take 100 mg by mouth in the morning. 04/17/20 25 Active sucralfate (Carafate) 1 g tablet Take 1 tablet by mouth every 6 (six) hours during the day. 10/01/20 24 Active tiZANidine (Zanaflex) 4 MG tabletIndications: Chronic bilateral low back pain with right-sided sciatica Take 1 tablet (4 mg) by mouth at bedtime. 30 tablet 3 07/01/20 25 Active traMADol (Ultram) 50 MG tabletIndications: Chronic bilateral low back pain with right-sided sciatica Take 1 tablet (50 mg) by mouth if needed at bedtime for severe pain. 15 tablet 07/01/20 25 Active cyclobenzaprine (Flexeril) 10 MG tablet Take 1 tablet by mouth at night as needed for muscle spasm. 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 Psychogenic nonepileptic seizure 06/17/2025 Status post hysterectomy 06/17/2025 Depressive disorder 06/17/2025 Left knee pain 12/17/2024 Assessment & Plan (04/25/2025 8:51 AM EDT): - osteoarthritis - seen by [facility] provider and received a steroid injection on 12/09/24 Assessment & Plan (12/17/2024 5:49 AM EST): - osteoarthritis - seen by [facility] provider and received a steroid injection on 12/09/24 Osteoarthritis of left knee 12/17/2024 Assessment & Plan (12/21/2024 5:08 PM EST): - evaluated by orthopedist, Dx osteoarthritis - received steroid injection in Nov 2024 - continue judicious use of NSAIDs and APAP - previously tried COX2i Ill-fitting dentures 11/12/2024 Elevated BP without diagnosis of hypertension Assessment & Plan (05/07/2025 5:25 PM EDT): -Goal BP < 130/80 per ACC/AHA guideline (Treatment threshold >=140/90) -Continue working on lifestyle modifications -Recommended self-monitoring BP. Assessment & Plan (12/17/2024 9:03 AM EST): -Goal BP < 140/90 per JNC-8 and < 130/80 per ACC/AHA guideline (Treatment threshold >=140/90) -possibly due to pain -Continue working on lifestyle modifications -Recommended self-monitoring BP. -Follow up in 3-6 mo, sooner if any problem arises Assessment & Plan (08/12/2024 4:01 PM EDT): [...] with right-sided sciatica 04/15/2024 Assessment & Plan (07/02/2025 11:56 PM EDT): -worsened hronic back pain - MRI [...] will prescribe Meloxicam - upcoming appointment with music therapy specialist - home back exercise as tolerated Assessment & Plan (06/17/2025 9:54 AM EDT): Pt attended and participated in chronic pain group today - good engagement with group model of care - continue to use combination of non-pharmacological modalities to address pain - followup in 1-4 weeks Assessment & Plan (04/16/2024 11:51 AM EDT): [...] will prescribe Meloxicam - upcoming appointment with music therapy specialist - home back exercise as tolerated [...] -prescribed Reglan Prediabetes 10/22/2022 Assessment & Plan (04/25/2025 8:50 AM EDT): -Hgb A1C > 5.9% since 2019 -12/17/24 A1C 6.2% -Pt has been receiving multiple steroid injection for pain management, recently from orthopedist and for asthma exacerbation -Continue working on lifestyle modifications -Diabetes screen q6-12 mo. Assessment & Plan (12/21/2024 5:09 PM EST): -Hgb A1C > 5.9% since 2019 -12/17/24 A1C 6.2% -Pt has been receiving multiple steroid injection for pain management, recently from orthopedist and for asthma exacerbation -Continue working on lifestyle modifications -Diabetes screen q6-12 mo. Assessment & Plan (08/12/2024 4:01 PM EDT): [...] on lifestyle modifications -Diabetes screen q6-12 mo. Contact dermatitis 09/29/2022 History of renal calculi 09/29/2022 Status post laparoscopic appendectomy 09/29/2022 Chronic pain 09/20/2015 Difficulty sleeping 02/02/2015 Assessment & Plan (04/16/2024 11:49 AM EDT): -will prescribe low dose Melatonin to take 2 hours before desired bedtime Irritable bowel syndrome 11/03/2014 Assessment & Plan (12/17/2024 9:03 AM EST): Last seen by GI in April 2023 - s/p colonoscopy on 05/02/23, wnl -Continue dicyclomine prn -Continue linaclotide Assessment & Plan (08/12/2024 4:01 PM EDT): [...] Assessment & Plan (08/11/2023 6:45 PM EDT): -Bowen moisturization with Eucerin or Cetaphil. -Use unscented, hypoallergenic skin care products. -Judicious use of topical steroid cream in moderate-severe areas of eczema. -avoid irritants -keep nails short Assessment & Plan (04/05/2023 1:32 PM EDT): -Bowen moisturization with Eucerin or Cetaphil. -Use unscented, hypoallergenic skin care products. -Judicious use of topical steroid cream in moderate-severe areas of eczema. -avoid irritants -keep nails short Chronic urticaria 02/26/2013 Recurrent kidney stones 02/26/2013 Assessment & Plan (08/12/2024 4:01 PM EDT): -Following with [facility], last seen in March 2024 -Most [...] Plan (04/16/2024 11:55 AM EDT): -Following with [facility], last seen in March 2024 -Most [...] Plan (08/11/2023 6:42 PM EDT): -Following with [facility], last seen in March 2023 -Most [...] Plan (04/16/2023 12:42 PM EDT): -Following with [facility] -Most recent kidney stone episode Nov [...] intake Allergic rhinitis 06/26/2012 Assessment & Plan (04/25/2025 8:50 AM EDT): -Continue cetirizine, montelukast, and fluticasone nasal -last acute sinusitis in Jun 2022, treated with Augmentin Assessment & Plan (08/11/2023 6:46 PM EDT): -Continue cetirizine, montelukast, and fluticasone nasal -last acute sinusitis in Jun 2022, treated with Augmentin Assessment & Plan (10/22/2022 6:40 AM EST): -Continue cetirizine, montelukast, and fluticasone nasal -last acute sinusitis in Jun 2022, treated with Augmentin Asthma 06/26/2012 Assessment & Plan (05/07/2025 5:33 PM EDT): -Most recent exacerbation, ED visit, and prednisone Tx in Oct 2017. -2 exacerbations per year -Trigger includes cold air. -Continue Advair HFA -Continue Singulair qhs -Continue albuterol HFA prn -Consider updating PFT -Consider transitioning to MART Assessment & Plan (12/21/2024 5:06 PM EST): -Most recent exacerbation, ED visit, and prednisone Tx in Oct 2017. -2 exacerbations per year -Trigger includes cold air. 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 She has tried many different muscle relaxants including tizanidine, methocarbamol, and baclofen -Referred to chronic pain group -Judicious use of NSAIDs and APAP Assessment & Plan (12/17/2024 9:03 AM EST): -Followed by paint maker -currently taking: Tizanidine. Pt has tried cyclobenzaprine, Methocarbamol, and baclofen. -Judicious use of NSAIDs and APAP Assessment & Plan (08/12/2024 4:01 PM EDT): -Followed by paint maker -currently taking: Tizanidine. Pt has tried cyclobenzaprine, Methocarbamol, and baclofen. -Judicious use of NSAIDs and APAP Assessment & Plan (04/16/2024 11:56 AM EDT): -Followed by paint maker -currently taking: Tizanidine. Pt has tried cyclobenzaprine, Methocarbamol, and baclofen. -Judicious use of NSAIDs and APAP Assessment & Plan (02/04/2024 8:47 AM EDT): -Followed by paint maker -currently taking: Tizanidine. Pt has tried cyclobenzaprine, Methocarbamol, and baclofen. -Judicious use of NSAIDs and APAP Assessment & Plan (08/11/2023 6:45 PM EDT): -Followed by paint maker -currently taking: Tizanidine. Pt has tried cyclobenzaprine, Methocarbamol, and baclofen. -Judicious use of NSAIDs and APAP Assessment & Plan (04/05/2023 1:12 PM EDT): -Followed by paint maker -currently taking: Flexeril 10 mg at bedtime. Pt has tried Tizanidine and Methocarbamol. We agreed to try different muscle relaxants. -will try Baclofen 25 mg at bedtime, as needed -Judicious use of NSAIDs and APAP -Continue spinal stimulator Sprint. Assessment & Plan (10/22/2022 6:28 AM EST): -Followed by paint maker -She has tried amitriptyline, topiramate (for headache) muscle relaxants, NSAIDs, APAP, and is currently taking doxepine for SUMMERS and insomnia -Reconcile muscle relaxants (she has been prescribed methacarbamol, cyclobenzaprine, and tizanidine). -Judicious use of NSAIDs and APAP -Continue spinal stimulator Sprint. Gastroesophageal reflux disease without esophagi tis 06/26/2012 Assessment & Plan (12/17/2024 9:03 AM EST): -Followed by [facility], last seen in March 2024 -Continue pantoprazole Assessment & Plan (04/16/2024 11:49 AM EDT): -Followed by [facility], last seen in March 2024 -Continue pantoprazole Assessment & Plan (02/04/2024 8:47 AM EDT): -Followed by [facility], last seen on 03/22/23 -Continue pantoprazole Assessment & Plan (08/11/2023 6:41 PM EDT): -Followed by [facility], last seen on 03/22/23 -Continue pantoprazole Assessment & Plan (04/05/2023 1:19 PM EDT): -Followed by [facility], last seen on 03/22/23 -Continue pantoprazole Assessment & Plan (10/22/2022 6:32 AM EST): -Followed by [facility], last seen on 08/15/22 -Continue pantoprazole [...] Problem Noted Date Diagnosed Date Resolved Date 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 No evidence of respiratory distress. Symptoms mild. -No evidence of dehydration. -prescribed benzonatate (Tessalon Perles) 100 MG -Supportive care advised. Chronic bilateral low back p ain without sciatica 10/17/2022 06/17/2025 Assessment & Plan (05/07/2025 5:29 PM EDT): -[place] management [place] [facility] [place]MRI in 2020 at [facility]: Only very minimal degenerative changes, without significant [...] use of NSAIDs prn; adding baclofen prn - Referred to chronic pain group Assessment & Plan (04/15/2024 12:00 PM EDT): -Followed [place] management [place] [facility] [place]MRI in 2020 at [facility]: Only very minimal degenerative changes, without significant change from 11/21/2016. There is no canal stenosis or evidence of nerve root impingement. -Treatment Hx: TENS, MBB, and muscle relaxants; peripheral nerve stimulation Sprint system in Sep 2022 - Oct 2022, removed due to ineffectiveness. Tried again in Nov 2023, and removed due to ineffectiveness -continue APAP prn; judicious use of NSAIDs prn; adding baclofen prn Assessment & Plan (02/04/2024 8:49 AM EDT): -[place] management [place] [facility] [place]MRI in 2020 at [facility]: Only very minimal degenerative changes, without significant change from 11/21/2016. There is no canal stenosis or evidence of nerve root impingement. -Treatment Hx: TENS, MBB, and muscle relaxants; peripheral nerve stimulation Sprint system in Sep 2022Oct 2022, removed due to ineffectiveness. Tried again in Nov 2023, and removed due to ineffectiveness -continue APAP prn; judicious use of NSAIDs prn; adding baclofen prn Assessment & Plan (08/11/2023 6:46 PM EDT): -Followed [place] pain management in [facility] -Treatment Hx: TENS, MBB, and muscle relaxants; peripheral nerve stimulation Sprint system in Sep 2022 - Oct 2022, removed due to ineffectiveness -continue APAP prn; judicious use of NSAIDs prn; adding baclofen prn Assessment & Plan (04/16/2023 12:45 PM EDT): -Followed [place] pain management in [facility] -Treatment Hx: TENS, MBB, and muscle relaxants; peripheral nerve stimulation Sprint system in Sep 2022Oct 2022, removed due to ineffectiveness -continue APAP prn; judicious use of NSAIDs prn; adding baclofen prn Assessment & Plan (10/22/2022 6:31 AM EST): -Followed by pain management in [facility] -Treatment Hx: TENS, MBB, and muscle relaxants -s/p implantation of peripheral nerve stimulation Sprint system Acute maxillary sinusitis 09/29/2022 Rash 09/29/2022 06/17/2025 Encounters Date Type Department Care Team Description 07/01/2025 11:15 AM EDT Office Visit [facility] [place] [address] Mikala Borges MD Chronic bilateral low back pain with right-sided sciatica (Primary Dx) 07/01/2025 Patient Outreach [facility] [place] [address] Mikala Borges MD 07/01/2025 Travel 06/30/2025 Patient Outreach [facility] [place] [address] Mikala Borges MD Care Coordination (CM/CHW outreach) 06/30/2025 Patient Outreach [facility] [place] [address] Mikala Borges MD Care Coordination (CHW chart review) 06/30/2025 Telephone [facility] [place] [address] Mikala Borges MD ER Follow-up 06/30/2025 Patient Outreach [facility] [place] [address] Mikala Borges MD Care Management ([facility]- chart review) 06/30/2025 Patient Outreach [facility] [place] [address] Mikala Borges MD 06/19/2025 Travel 06/15/2025 11:00 AM EDT Office Visit [facility] [place] [address] Heather Zuluaga MD Chronic bilateral low back pain with right-sided sciatica (Primary Dx); Fibromyalgia; Primary osteoarthritis of left knee; Chronic pain syndrome 06/15/2025 Travel 06/12/[address] [address] Mikala Borges MD chart prep 06/01/2025 Travel 05/18/2025 Orders Only [facility] External Provider, [facility] 04/23/2025 10:00 AM EDT Office Visit [address] [address] Mikala Borges MD Allergic rhinitis, unspecified seasonality, unspecified trigger (Primary Dx); Prediabetes; Vitamin D deficiency; Mild persistent asthma with acute exacerbation; Acute pain of left knee; Elevated BP without diagnosis of hypertension; Chronic pain syndrome; Fibromyalgia; Chronic bilateral low back pain without sciatica 04/23/2025 Travel 04/20/[address] [address] Haylee Etienne MA chart prep 04/07/[address] [address] Mikala Borges MD 04/02/2025 Patient Outreach [address] [address] Mikala Borges MD Care Coordination (CHW f/u) from Last 3 Months Immunizations Immunization Administration Dates Next Due Hep B, adult 04/23/2025,12/17/2024 Influenza injectable quadrivalent preservative f ree 08/24/2021,11/06/2018 [...] is your housing situation today? I have jeffyclover patel 01/22/[address] you [...] Mass Index 37.74 07/01/2025 10:54 AM EDT Plan of Treatment Upcoming Encounters Date Type Department Care Team (Late st Contact Info) Description 08/24/2025 10:00 AM EDT Office Visit [facility] [address] [place] [address] Mikala Borges MD [address] [place], [place] [id number] Health Maintenance Due Date Last Done Comments CT Colonography 1972 FIT DNA/Cologuard 1972 FIT 1972 FOBT 1970 Sigmoidoscopy 1972 Zoster Vaccines (2 of 2) 08/14/2022 06/19/2022 Dental Oral Exam 05/30/2024 11/29/2023 Dental Prophylaxis 05/30/2024 11/29/2023 Dental X-Ray: Bitewings 11/30/2024 11/29/2023 Hepatitis B Vaccines (3 of 3 - 19+ 3-dose series) 06/18/2025 04/23/2025, 12/17/2024 COVID-19 Vaccine ( - season) 2025 03/30/2021, 03/02/2021 Influenza Vaccine (#1) 2025 , 08/24/2021, 11/06/2018, Additional history exists Depression Screening 08/12/2025 08/12/2024, 08/12/20 24 SDOH Screening 12/01/2025 12/01/2024 Diabetes: Hemoglobin A1C 12/17/2025 025, 01/22/2024, 04/05/2023, Additional history exists Alcohol/Substance Use Screening 04/23/2026 04/23/2025 Disability Screening 04/23/2026 04/23/2025 Tobacco Screening 07/01/2026 07/01/2025 Dental X-Ray: Full Mouth 11/30/2026 11/29/2023 Mammogram 01/08/2027 01/08/2025, 12/27, 08/02/2021, Additional history exists Lipid Panel 12/17/2029 12/17/2024, 12/28, 04/05/2023, Additional history exists DTaP/Tdap/Td Vaccines (3 - Td or Tdap) 08/24/2031 08/24/2021, 07/13/2011, 09/23/2001 Colonoscopy 05/02/2033 05/02/2023 Colorectal Cancer Screening 05/02/2033 RSV Patients and Patients Aged 60 years or older (1 - 1-dose 75+ series) 2047 Pneumococcal Vaccine: 50+ Years Completed 08/12/2024 HIB Vaccines Aged Out No [...] Name Priority Date/Time Associated Diagnosis Comments XR THORACIC SPINE 2 VIEWS Routine 06/17/2025 12:33 PM EDT US RENAL COMPLETE Routine 05/19/2025 3:0 8 PM EDT BI US BREAST LIMITED BILATERAL Urgent 01/08/2025 1:30 PM EDT HEMOGLOBIN A1C Routine 12/17/2024 10:50 AM EST Prediabetes LIPID PANEL WITH REFLEX TO DIRECT LDL Routine 12/17/2024 10:50 AM EST Elevated BP without diagnosis of hypertension Prediabetes PROPHYLAXIS - ADULT Routine 11/29/2023 1 0:00 AM EST Dental plaque INTRAORAL - COMPLETE SERIES OF RADIOGRAPHIC IMAGES Routine 11/29/2023 10:00 AM EST Dental caries Missing teeth, acquired Dental plaque PERIODIC ORAL EVALUATION - ESTABLISHED PATIENT Routine 11/29/2023 10:00 AM EST HM COLONOSCOPY Routine 05/02/2023 from Last 3 Months or Most Recently Relevant to Health Maintenance Results * XR Thoracic Spine 2 Views (06/17/2025 12:33 PM EDT) Anatomical Region Laterality Modality Spine, T-spine Radiographic Winnie ging 06/17/2025 12:3 3 PM EDT Narrative 06/17/2025 1:38 PM EDT [address] [address] XRay Report Signed Patient: Carmelina Etienne MR#: [id number] : 1970 Acct:[id number] Age/Sex: 55 / F ADM Date: 06/17/25 Loc: [facility] Attending Dr: Geeta ROWE Ordering Physician: Geeta Olsen Date of Service: 06/17/25 Procedure(s): XR thoracic spine 2V Accession Number(s): [id number] cc: Geeta Olsen; Mikala Borges MD EXAMINATION: XR THORACIC SPINE CLINICAL INFORMATION: M54.6 - Pain in thoracic spine COMPARISON: April 09, 2017. TECHNIQUE: AP lateral and swimmer's projection. FINDINGS: Mild multilevel endplate sclerosis and small marginal osteophyte formation in the vertebral bodies of the mid thoracic spine. S-shaped curvature of the thoracic spine. No acute cortical disruption. No gross malalignment. No lytic or blastic lesions. XR/XR thoracic spine 2V IMPRESSION: Mild multilevel thoracic spondylosis. Mild scoliosis. Electronically signed by: Orlin Vieira MD 06/17/2025 01:35 PM EDT RP Dictated By: Orlin Zafar MD Signed By: <Electronically signed by Orlin Wolf MD in OV> 06/17/25 1335 DD/ 1233 TD/TT: 06/17/25 1253 Architectural Representative: Procedure Note Donotdanialinterpreter, Image - 06/17/[address] [address] XRay Report Signed Patient: Carmelina Etienne EMR#: [id number] : 1970Acct:[id number] Age/Sex: 55 / FADM Date: 06/17/25 Loc: HO.XRAY Attending Dr: Geeta ROWE Ordering Physician: Geeta Olsen Date of Service: 06/17/25 Procedure(s): XR thoracic spine 2V Accession Number(s): [id number] cc: Geeta Olsen; Mikala Borges MD EXAMINATION: XR THORACIC SPINE CLINICAL INFORMATION: M54.6 - Pain in thoracic spine COMPARISON: April 09, 2017. TECHNIQUE: AP lateral and swimmer's projection. FINDINGS: Mild multilevel endplate sclerosis and small marginal osteophyte formation in the vertebral bodies of the mid thoracic spine. S-shaped curvature of the thoracic spine. No acute cortical disruption. No gross malalignment. No lytic or blastic lesions. XR/XR thoracic spine 2V IMPRESSION: Mild multilevel thoracic spondylosis. Mild scoliosis. Electronically signed by: Orlin Vieira MD 06/17/2025 01:35 PM EDT Dictated By: Orlin Zafar MD Signed By: <Electronically signed by Orlin Wolf MDin OV> 06/17/25 1335 DD/ 1233 TD/TT: 06/17/25 1253 Architectural Representative: us [facility] External Provider IMG XR PROCEDURES Final Result * US Renal Complete (05/19/2025 3:08 PM EDT) Anatomical Region Laterality Modality Kidney Ultrasound 05/19/2025 3:08 PM EDT Narrative 05/19/2025 3:10 PM EDT [address] [address] Ultrasound Report Signed Patient: Carmelina Etienne MR#: [id number] : 1970 Acct:[id number] Age/Sex: 54 / F ADM Date: 05/18/25 Loc: HO.US Attending Dr: Malissa Wilson MD Ordering Physician: Malissa Wilson MD Date of Service: 05/18/25 Procedure(s): US renal BI Accession Number(s): [id number] cc: Malissa Wilson MD; Mikala Borges MD CLINICAL HISTORY: N20.0 - Calculus of kidney US Renal Comparison: US/NM/SR - US KIDNEY BILATERAL - 03/22/23 12:53 EDT Findings: Right kidney normal size and echotexture, 12.4 cm length. Left kidney normal size and echotexture, 12.7 cm length. Left lower pole calculus measuring 5 mm. No hydronephrosis of either kidney. Normal color Doppler IMPRESSION: 1. Nonobstructing left renal calculus. 2. No acute process. This document has been electronically signed by: Amanda Dhillon MD on 05/19/2025 15:08:58 Dictated By: Amanda Dhillon MD Signed By: <Electronically signed by Amanda Dhillon MD in OV> 05/19/25 1510 DD/ 1508 TD/TT: 05/19/25 1508 Architectural Representative: Procedure Note Donotuseinterpreter, Image - 05/19/[address] [address] Ultrasound Report Signed Patient: Carmelina Etienne EMR#: [id number] : 1970Acct:[id number] Age/Sex: 54 / FADM Date: 05/18/25 Loc: HO.US Attending Dr: Malissa Wilson MD Ordering Physician: Malissa Wilson MD Date of Service: 05/18/25 Procedure(s): US renal BI Accession Number(s): [id number] cc: Malissa Wilson MD; Mikala Borges MD CLINICAL HISTORY: N20.0 - Calculus of kidney US Renal Comparison: US/NM/SR - US KIDNEY BILATERAL - 03/22/23 12:53 EDT Findings: Right kidney normal size and echotexture, 12.4 cm length. Left kidney normal size and echotexture, 12.7 cm length. Left lower pole calculus measuring 5 mm. No hydronephrosis of either kidney. Normal color Doppler IMPRESSION: 1. Nonobstructing left renal calculus. 2. No acute process. This document has been electronically signed by: Amanda Dhillon MD on 05/19/2025 15:08:58 Dictated By: Amanda Dhillon MD Signed By: <Electronically signed by Amanda Dhillon MD in OV> 05/19/25 1510 DD/ 1508 TD/TT: 05/19/25 1508 Architectural Representative: us [facility] External Provider IMG US PROCEDURES Final Result * BI US Breast Limited Bilateral (01/08/2025 1:30 PM EDT) Anatomical Region Laterality Modality Breast Bilateral Ultrasound 01/08/2025 1:30 PM EDT Narrative 01/08/2025 2:09 PM EDT [address] [place] [address] Ultrasound Report Signed Patient: Carmelina Etienne MR#: [id number] : 1970 Acct:[id number] Age/Sex: 54 / F ADM Date: 01/08/25 Loc: HO.MAMMO Attending Dr: Mikala Borges MD Ordering Physician: SAMEER ZIMMERMAN CNM Date of Service: 01/08/25 Procedure(s): US breast BI limited mamm only Accession Number(s): [id number] cc: SAMEER ZIMMERMAN CNM EXAMINATION: MM DIAGNOSTIC DIGITAL BREAST TOMOSYNTHESIS, BILATERAL Limited bilateral ultrasound. CLINICAL INFORMATION: Bilateral breast pain. Family history of breast cancer including sister diagnosed at age 38. COMPARISON: Mammography: Comparison is made with relevant prior exams. TECHNIQUE: Digital breast mammography with tomosynthesis is performed in both the craniocaudal and mediolateral oblique views along with computer-aided detection (CAD). FINDINGS: There are scattered areas of fibroglandular density (ACR BI-RADS breast composition Category b). Bilateral scattered asymmetries are stable. Lucent centered left breast calcifications are benign. There are no significant masses, abnormal calcifications, or other abnormalities. Targeted color Doppler ultrasound scanning in the upper inner and upper outer right breast areas of patient's pain demonstrates normal fibronodular breast tissue. There is no sonographic abnormality. Targeted color Doppler ultrasound scanning in the left breast upper inner quadrant area of patient's pain demonstrates normal fibroglandular breast tissue. There is no sonographic abnormality. Results are provided to the patient at time of visit by the technologist. US/US breast BI limited mamm only IMPRESSION: No mammographic or sonographic abnormalities to account for the patient's bilateral breast pain. Recommend clinical evaluation and follow-up. ASSESSMENT: BI-RADS BI-RADS 2 - Benign Findings RECOMMENDATION: 1 year F/U This patient's information was entered into a reminder system with a target due date for their next mammogram. Electronically signed by: Nohemy Sebastian DO 01/08/2025 02:06 PM EDT Dictated By: Nohemy Sebastian DO Signed By: <Electronically signed by Nohemy Sebastian DO in OV> 01/08/25 1406 DD/ 1330 TD/TT: 01/08/25 1341 Architectural Representative: Procedure Note Donotuseinterpreter, Image - 01/08/2025 [facility] [address] [place] [address] Ultrasound Report Signed Patient: Carmelina Etienne EMR#: [id number] : 1970Acct:[id number] Age/Sex: 54 / FADM Date: 01/08/25 Loc: MAMMO Attending Dr: Mikala Borges MD Ordering Physician: SAMEER ZIMMERMAN CNM Date of Service: 01/08/25 Procedure(s): US breast BI limited mamm only Accession Number(s): [id number] cc: SAMEER ZIMMERMAN CNM EXAMINATION: MM DIAGNOSTIC DIGITAL BREAST TOMOSYNTHESIS, BILATERAL Limited bilateral ultrasound. CLINICAL INFORMATION: Bilateral breast pain. Family history of breast cancer including sister diagnosed at age 38. COMPARISON: Mammography: Comparison is made with relevant prior exams. TECHNIQUE: Digital breast mammography with tomosynthesis is performed in both the craniocaudal and mediolateral oblique views along with computer-aided detection (CAD). FINDINGS: There are scattered areas of fibroglandular density (ACR BI-RADS breast composition Category b). Bilateral scattered asymmetries are stable. Lucent centered left breast calcifications are benign. There are no significant masses, abnormal calcifications, or other abnormalities. Targeted color Doppler ultrasound scanning in the upper inner and upper outer right breast areas of patient's pain demonstrates normal fibronodular breast tissue. There is no sonographic abnormality. Targeted color Doppler ultrasound scanning in the left breast upper inner quadrant area of patient's pain demonstrates normal fibroglandular breast tissue. There is no sonographic abnormality. Results are provided to the patient at time of visit by the technologist. US/US breast BI limited mamm only IMPRESSION: No mammographic or sonographic abnormalities to account for the patient's bilateral breast pain. Recommend clinical evaluation and follow-up. ASSESSMENT: BI-RADS BI-RADS 2 - Benign Findings RECOMMENDATION: 1 year F/U This patient's information was entered into a reminder system with a target due date for their next mammogram. Electronically signed by: Nohemy Sebastian DO 01/08/2025 02:06 PM EDT Dictated By: Nohemy Sebastian DO Signed By: <Electronically signed by Nohemy Sebastian DO in OV> 01/08/25 1406 DD/ 1330 TD/TT: 01/08/25 1341 Architectural Representative: Sameer Zimmerman CNM IMG US PROCEDURES Edited Result - Final * (ABNORMAL) Lipid Panel with Reflex to Direct LDL (12/17/2024 10:50 AM EST) Triglycerides 73 <150 mg/dL [facility] Comment:Desirable Triglyceri de: less than 150 mg/dLBorderline High Triglyceride 150-199 mg/dLHigh Triglyceride: 200-499 mg/dLVery High Triglyceride: greater than or equal to 5OO mg/dL Cholesterol 190 <200 mg/dL [facility] Comment:Desirable Cholestero l: less than 200 mg/dLBorderline High Cholesterol: 200-239 mg/dLHigh Cholesterol: greater than 239 mg/dL LDL Cholesterol Calculated 118(H) <100 mg/dL [facility] Comment:Desirable LDL: less than 100 mg/dLNear Optimal/Above Optimal LDL: 110- 129 mg/dLBorderline High LDL: 130-159 mg/dLHigh LDL: 160-189 mg/dLVery High LDL: greater than or equal to 190 mg/dL HDL Cholesterol 58 >40 mg/dL [facility] Comment:Desirable HDL: great er than 40 mg/dL Note: This HDL assay may give artificially low results in patients with liver disease. Blood 12/17/2024 10:5 0 AM EST 12/17/2024 1:20 PM EST us Mikala Borges MD LAB BLOOD ORDERABLES Final Resul t [facility] [address] [place] [phone] * (ABNORMAL) Hemoglobin A1c (12/17/2024 10:50 AM EST) Hemoglobin A1c 6.2(H) <6.0 % [facility] Comment:Hemoglobin A1C Refer ence Range Adults: 4.8 - 6.0 % Non diabetic: < 6.0 % Goal: < 7.0 %Additional Action Suggested: > 8.0 %Note: Hemoglobin A1c results are invalid for patients with abnormal amounts of HbF. Blood transfusions may impact the HbA1c concentration in the patient sample. Estimated Average Glucose 131 mg/dL [facility] Comment:eAG = Estimated ave rage glucose which is %A1C expressed asaverage glucose, using the formula of the P0P-HttdzsxPfigzrg Glucose study (ADAG), Diabetes Care, Vol.31,#8,May. 2007 Blood Venous blood specimen / Unknown 12/17/2024 10:50 AM EST 12/17/2024 1:20 PM EST us Mikala Borges MD LAB BLOOD ORDERABLES Final Resul t [facility] [address] [place] [address] [phone] * Hm Colonoscopy (05/02/2023) Colonoscopy Normal Normal us Lisa Sanchez MD HEALTH MAINTENANCE Final Result from Last 3 Months or Most Recently Relevant to Health Maintenance Insurance [facility] MEDICAID STAND ADULT Care Teams Revolving Field Assembler Relationship Specialty Start Date End Date Mikala Borges MD [address] [place] [phone] PCP - General Family Medicine 10/29/18 Sherrie Etienne RN [address] [place] [phone] Registered Nurse Family Medicine 06/30/25 Willow Hernandez 06/30/25
--- OUTSIDE RECORDS SUMMARY | 2025-07-03 11:58 | XMS_ITS | Encounter Summary ---
Author Organization [employer] Address [address] [place] [address] Care Team Providers Care Oil Field Equipment Mechanic Name Role Phone Mikala Borges MD Primary Care Provider [phone] Sherrie Etienne RN Unavailable [phone] Willow Hernandez Unavailable Encounter Details Date Type Department Care Team (Latest Contact Info) Description 07/01/2025 Travel Social History Tobacco Use Types Packs/Day [...] t he electric, gas, oil or water [place] threatened to shut off services in your [...] 08/24/2025 10:00 AM EDT Office Visit [facility] [address] [place] [phone] Mikala Borges MD [address] [place] [phone] documented as of this encounter Visit Diagnoses Not on filedocumented in this encounter Additional Health Concerns Assessment Noted Time PHQ-9 Depression Total Score: 6 08/12/20 24 1:10 PM EDT documented as of this encounter Care Teams Oil Field Equipment Mechanic Relationship Specialty Start Date End Date Mikala Borges MD [address] [place] [address] PCP - General Family Medicine 10/29/18 Sherrie Etienne RN [address] [place] [phone] Registered Nurse Family Medicine 06/30/25 Willow Hernandez 06/30/25 documented as of this encounter
--- OUTSIDE RECORDS SUMMARY | 2025-07-03 11:58 | XMS_ITS | Clinical Summary ---
Author Organization [facility] Address [address] [place] [address] Phone Care Team Providers Care Tail Board Man Name Role Phone Mikala Borges MD Primary Care Provider [phone] Allergies Active Allergy Reactions Criticality Noted Date Comments Divalproex 06/27/2025 Paroxetine Hcl 06/27/2025 Olanzapine 06/27/2025 Medications methocarbamoL (ROBAXIN) 500 mg tablet Take 1 tablet (500 mg total) by mouth 2 (two) times a day for 10 days. 20 tablet 5 025 Active ketorolac (TORADOL) 10 mg tablet Take 1 tablet (10 mg total) by mouth every 6 (six) hours if needed for moderate pain for up to 5 days. 20 tablet 5 025 Discontinued ketorolac (TORADOL) 10 mg tablet Take 1 tablet (10 mg total) by mouth every 6 (six) hours if needed for moderate pain for up to 4 days. 15 tablet 5 025 Encounters Date Type Department Care Team Description 06/27/2025 7:40 AM EDT - 06/27/2025 2:41 PM EDT Emergency [facility] Emergency [address] [place] [address] Phoenix Lama MD Acute right-sided low back pain with right-sided sciatica (Primary Dx) Discharge Disposition: Home or Self Care from Last 3 Months Medical History Medical History Date Comments Asthma Arthritis Fibromyalgia Social History Tobacco Use Types Packs/Day Years Used Date Smoking Tobacco: Never Assessed Comments Unknown Sex and Gender Information Value Date Recorded Sex Assigned at Not on file Legal Sex Female 5:36 AM EST Gender Identity Not on file Sexual Orientation Not on file Obstetrics History Last Filed Vital Signs Vital Sign Reading Time Taken Comments Blood Pressure 112/60 06/27/2025 12:25 PM EDT Pulse 60 06/27/2025 12:25 PM EDT Temperature 36.5 C (97.7 F) 06/27/2025 12:25 PM EDT Respiratory Rate 17 06/27/2025 12:25 PM EDT Oxygen Saturation 100% 06/27/2025 12:25 PM EDT Inhaled Oxygen Concentration - - Weight 104 kg (230 lb) 06/27/2025 6:53 AM EDT Height 165.1 cm (5' 5 ) 06/27/2025 6:53 AM EDT Body Mass Index 38.27 06/27/2025 6:53 AM EDT Plan of Treatment Health Maintenance Due Date Last Done Comments Breast Cancer Screening 1972 Cervical Cancer Screening: Pap Smear 1993 Zoster Vaccines (2 of 2) 08/14/2022 06/19/2022 Depression Screening 10/29/2024 Hepatitis B Vaccines (3 of 3 - 19+ 3-dose series) 06/18/2025 04/23/2025, 12/17/2024 Cholesterol Screening (Lipid Panel) 06/27/2025 Colorectal Cancer Screening: Colonoscopy 06/27/2025 HIV Screening 06/27/2025 Hepatitis C Screening 06/27/2025 Social Influencers of Health Screening 06/27/2025 COVID-19 Vaccine ( season) 2025 03/30/2021, 03/02/2021 Influenza Vaccine (#1) 2025 , 08/24/2021, 11/06/2018, Additional history exists DTaP,Tdap,and Td Vaccines (4 - Td or Tdap) 08/24/2031 08/24/2021, 07/13/2011, 09/23/2001 Pneumococcal Vaccine: 50+ Years Completed 08/12/2024 HIB [...] to complete this topic RSV Immunization Patients Under 20 months Aged Out No longer eligible based on patient's age to complete this topic Varicella Vaccines Aged Out No longer eligible based on patient's age to complete this topic Procedures Procedure Name Priority Date/Time Associated Diagnosis Comments US PELVIS NON OB COMPLETE W TRANSVAGINAL STAT 06/27/2025 10:[address] ABDOMEN PELVIS W CONTRAST STAT 06/27/2025 9:32 AM EDT ADORNO URINE CULTURE TUBE STAT 06/27/2025 7:39 AM EDT URINALYSIS WITH REFLEX MICROSCOPIC AND CULTURE STAT 06/27/2025 7:39 AM EDT URINALYSIS WITH REFLEX MICROSCOPIC AND CULTURE STAT 06/27/2025 7:39 AM EDT LIPASE STAT Add-on 06/27/2025 7:34 AM EDT CBC WITH AUTO DIFFERENTIAL STAT 06/27/2025 7:34 AM EDT COMPREHENSIVE METABOLIC PANEL STAT 06/27/2025 7:34 AM EDT CBC AND DIFFERENTIAL STAT 06/27/2025 7:34 AM EDT from Last 3 Months Results * US Pelvis Non OB Complete w Transvaginal (06/27/2025 10:24 AM EDT) Anatomical Region Laterality Modality Body, Pelvis Ultrasound 06/27/2025 10:2 2 AM EDT Impressions 06/27/2025 10:25 AM EDT Previous hysterectomy. No suspicious mass or collection. -------- FINAL REPORT -------- Dictated By: Eulalio Ruby Dictated Date: 06/27/2025 10:22 ET Assigned Physician: Eulalio Ruby Reviewed and Electronically Signed By: Eulalio Ruby Signed Date: 06/27/2025 10:25 ET Workstation ID: [id number] Transcribed By: Self Edit Transcribed Date: 06/27/2025 10:22 ET Narrative 06/27/2025 10:25 AM EDT EXAM: PELVIC ULTRASOUND CLINICAL INFORMATION: Right lower quadrant pain. Symptoms for 3 days. TECHNIQUE: Transcutaneous pelvic ultrasound. Transvaginal scanning was performed following voiding to better evaluate the uterine contents and adnexa. Color mapping was performed. Doppler spectral analysis was performed. Comparison: No prior studies are available for comparison. FINDINGS: Quality: Adequate Expected region of vagina: No suspicious abnormality. Cervix: Not demonstrated and surgically absent. Uterine position: Previous hysterectomy. No suspicious abnormality in the expected region of the uterus. The adnexa were examined transcutaneously and transvaginally. There is no suspicious mass or collection. Neither ovary is discretely identified. Free fluid: None. Procedure Note Eulalio Ruby MD - 06/27/2025 EXAM: PELVIC ULTRASOUND CLINICAL INFORMATION: Right lower quadrant pain. Symptoms for 3 days. TECHNIQUE: Transcutaneous pelvic ultrasound. Transvaginal scanning was performed following voiding to better evaluatethe uterine contents and adnexa. Color mapping was performed. Doppler spectral analysis was performed. Comparison: No prior studies are available for comparison. FINDINGS: Quality: Adequate Expected region of vagina: No suspicious abnormality. Cervix: Not demonstrated and surgically absent. Uterine position: Previous hysterectomy. No suspicious abnormality in the expected region of the uterus. The adnexa were examined transcutaneously and transvaginally. There is nosuspicious mass or collection. Neither ovary is discretely identified. Free fluid: None. IMPRESSION: Previous hysterectomy. No suspicious mass or collection. -------- FINAL REPORT -------- Dictated By: Eulalio Ruby Dictated Date: 06/27/2025 10:22 ET Assigned Physician: Eulalio Ruby Reviewed and Electronically Signed By: Eulalio Ruby Signed Date: 06/27/2025 10:25 ET Workstation ID: [id number] Transcribed By: Self Edit Transcribed Date: 06/27/2025 10:22 ET us Phoenix Lama MD IMG US PROCEDURES Final Result * CT Abdomen Pelvis w Contrast (06/27/2025 9:32 AM EDT) Anatomical Region Laterality Modality Body Computed Tomogra phy 06/27/2025 9:32 AM EDT Impressions 06/27/2025 9:43 AM EDT There are bilateral nonobstructing renal calculi. No ureteral calculus demonstrated. The kidneys enhance symmetrically. The appendix is not definitely identified but there is no CT evidence of acute appendicitis. Correlate with any history of appendectomy. -------- FINAL REPORT -------- Dictated By: Eulalio Ruby Dictated Date: 06/27/2025 09:32 ET Assigned Physician: Eulalio Ruby Reviewed and Electronically Signed By: Eulalio Ruby Signed Date: 06/27/2025 09:43 ET Workstation ID: [id number] Transcribed By: Self Edit Transcribed Date: 06/27/2025 09:32 ET Narrative 06/27/2025 9:43 AM EDT EXAMINATION: CT ABDOMEN/PELVIS WITH IV CONTRAST CLINICAL INFORMATION: Flank pain. Right-sided pain. COMPARISON: None TECHNIQUE: Multidetector CT. Helical examination of the abdomen and pelvis. Imaging performed after the IV administration of contrast. Reformatting in the coronal and sagittal planes. DLP: 1200 mGy-cm Dose optimization was performed including the use of low-dose iterative reconstruction technique with automatic exposure control based on patient size. Type of contrast: ISOVUE 370 Volume of IV contrast: 90 mL Volume of contrast discarded: 0 mL FINDINGS: LIVER: The liver is normal in size, shape, and attenuation. No focal hepatic lesion or biliary ductal dilatation is present. No additional liver findings. BILIARY TRACT: No opaque gallstone. No biliary dilation. SPLEEN: Normal size. No focal lesion. PANCREAS: No suspicious abnormality. ADRENAL GLANDS: No suspicious abnormality. KIDNEYS: There is a 0.3 cm nonobstructing upper pole right renal calculus 14.1 cm from the skin. There is an approximately 0.5 cm nonobstructing calculus in the lower pole the left kidney 15 cm from the skin. There is no ureteral calculus. There is no perinephric or periureteric stranding. The kidneys enhance symmetrically. There is no suspicious renal mass. URINARY BLADDER: The bladder is nearly empty. No suspicious abnormality. PELVIC VISCERA: The uterus is not demonstrated and is likely surgically absent. No suspicious adnexal mass or collection. GASTROINTESTINAL TRACT: No localized colonic wall thickening. There are surgical clips in the right lower quadrant. The appendix is not definitely identified. Correlate with any history of appendectomy. No significant small bowel dilation. No pneumatosis or pneumoperitoneum demonstrated. No evidence of an abscess. No localized fat stranding. There are a few nonspecific right lower quadrant mesenteric lymph nodes. ABDOMINAL WALL: No significant hernia is appreciated. LYMPHOVASCULAR STRUCTURES AND FLUID: There is no abdominal aortic aneurysm. There are no enlarged lymph nodes. There is no free intraperitoneal fluid. VISUALIZED LOWER CHEST: No suspicious abnormality. MUSCULOSKELETAL: No acute or suspicious osseous abnormality. Procedure Note Eulalio Ruby MD - 06/27/2025 EXAMINATION: CT ABDOMEN/PELVIS WITH IV CONTRAST CLINICAL INFORMATION: Flank pain. Right-sided pain. COMPARISON: None TECHNIQUE: Multidetector CT. Helical examination of the abdomen and pelvis. Imaging performed after the IV administration of contrast. Reformatting in the coronal and sagittal planes. DLP: 1200 mGy-cm Dose optimization was performed including the use of low-dose iterativereconstruction technique with automatic exposure control based on patientsize. Type of contrast: ISOVUE 370 Volume of IV contrast: 90 mL Volume of contrast discarded: 0 mL FINDINGS: LIVER: The liver is normal in size, shape, and attenuation. No focalhepatic lesion or biliary ductal dilatation is present. No additionalliver findings. BILIARY TRACT: No opaque gallstone. No biliary dilation. SPLEEN: Normal size. No focal lesion. PANCREAS: No suspicious abnormality. ADRENAL GLANDS: No suspicious abnormality. KIDNEYS: There is a 0.3 cm nonobstructing upper pole right renal hpuswipn61.1 cm from the skin. There is an approximately 0.5 cm nonobstructingcalculus in the lower pole the left kidney 15 cm from the skin. There is no ureteral calculus. There is no perinephric or periuretericstranding. The kidneys enhance symmetrically. There is no suspicious renalmass. URINARY BLADDER: The bladder is nearly empty. No suspiciousabnormality. PELVIC VISCERA: The uterus is not demonstrated and is likely surgicallyabsent. No suspicious adnexal mass or collection. GASTROINTESTINAL TRACT: No localized colonic wall thickening. There aresurgical clips in the right lower quadrant. The appendix is not definitelyidentified. Correlate with any history of appendectomy. No significant small bowel dilation. No pneumatosis or pneumoperitoneumdemonstrated. No evidence of an abscess. No localized fat stranding. There are a few nonspecific right lower quadrant mesenteric lymph nodes. ABDOMINAL WALL: No significant hernia is appreciated. LYMPHOVASCULAR STRUCTURES AND FLUID: There is no abdominal aorticaneurysm. There are no enlarged lymph nodes. There is no freeintraperitoneal fluid. VISUALIZED LOWER CHEST: No suspicious abnormality. MUSCULOSKELETAL: No acute or suspicious osseous abnormality. IMPRESSION: There are bilateral nonobstructing renal calculi. No ureteral calculus demonstrated. The kidneys enhance symmetrically. The appendix is not definitely identified but there is no CT evidence ofacute appendicitis. Correlate with any history of appendectomy. -------- FINAL REPORT -------- Dictated By: Eulalio Ruby Dictated Date: 06/27/2025 09:32 ET Assigned Physician: Eulalio Ruby Reviewed and Electronically Signed By: Eulalio Ruby Signed Date: 06/27/2025 09:43 ET Workstation ID: [id number] Transcribed By: Self Edit Transcribed Date: 06/27/2025 09:32 ET Phoenix Lama MD [facility] CT PROCEDURES Final Result * (ABNORMAL) Urinalysis with reflex microscopic and culture (06/27/2025 7:39 AM EDT) Specific [place] Urine 1.018 1.003 - 1.030 LAB URINALYSIS - AUTOMATED METHOD 06/27/2025 8:46 AM EDT [facility] pH, Urine 6.5 5.0 - 8.0 pH LAB URINALYSIS - AUTOMATED METHOD 06/27/2025 8:46 AM [facility] Leukocytes, Urine Negative Negative LAB URINALYSIS - AUTOMATED METHOD 06/27/2025 8:46 AM [facility] Nitrite, Urine Negative Negative LAB URINALYSIS - AUTOMATED METHOD 06/27/2025 8:46 AM [facility] Protein, Urine Negative <=Trace mg/dL LAB URINALYSIS - AUTOMATED METHOD 06/27/2025 8:46 AM [facility] Glucose, Urine Negative Negative mg/dL LAB URINALYSIS - AUTOMATED METHOD 06/27/2025 8:46 AM [facility] Ketones, Urine Negative Negative mg/dL LAB URINALYSIS - AUTOMATED METHOD 06/27/2025 8:46 AM [facility] Urobilinogen, Urine 0.2 0.2 - 1.0 mg/dL LAB URINALYSIS - AUTOMATED METHOD 06/27/2025 8:46 AM [facility] Bilirubin, Urine Negative Negative LAB URINALYSIS - AUTOMATED METHOD 06/27/2025 8:46 AM [facility] Blood, Urine Small(A) Negative LAB URINALYSIS - AUTOMATED METHOD 06/27/2025 8:46 AM [facility] RBC, Urine 8.1(H) 0 - 4 /HPF LAB URINALYSIS - AUTOMATED METHOD 06/27/2025 8:46 AM [facility] WBC, Urine 0.9 0 - 4 /HPF LAB URINALYSIS - AUTOMATED METHOD 06/27/2025 8:46 AM [facility] Squamous Epithelial, Urine 16 0 - 60 /LPF LAB URINALYSIS - AUTOMATED METHOD 06/27/2025 8:46 AM [facility] Bacteria, Urine Negative Negative /HPF LAB URINALYSIS - AUTOMATED METHOD 06/27/2025 8:46 AM [facility] Hyaline Casts, Urine 0.8 0 - 3 /LPF LAB URINALYSIS - AUTOMATED METHOD 06/27/2025 8:46 AM EDT [facility] Urine Urine specimen obtained by clean catch procedure / Unknown Non-blood Collection / Unknown 06/27/2025 7:39 AM EDT 06/27/2025 8:36 AM EDT Melody DIANE LAB URINE ORDERABLES Fin al Result Performing Organization Address [facility]/ZIP Co de Phone Number [facility] [address] [place] [address], [place] [phone] * Adorno urine culture tube (06/27/2025 7:39 AM EDT) Pathologist [facility] Extra Tube Hold for add-ons. 06/27/2025 10:01 AM EDT [facility] Comment:Auto resulted. Urine Urine specimen obtained by clean catch procedure / Unknown Non-blood Collection / Unknown 06/27/2025 7:39 AM EDT 06/27/2025 8:36 AM EDT Melody DIANE LAB URINE ORDERABLES Fin al Result Performing Organization Address [facility] de Phone Number [facility] [address] [place] [address], [place] [phone] * CBC auto differential (06/27/2025 7:34 AM EDT) WBC 6.4 4.8 - 10.8 K/[facility] LAB HEMETOLOGY METHOD 06/27/2025 8:45 AM EDT [facility] RBC 4.80 3.80 - 4.80 M/[facility] LAB HEMETOLOGY METHOD 06/27/2025 8:45 AM EDT [facility] Hemoglobin 13.1 11.5 - 16.0 g/dL LAB HEMETOLOGY METHOD 06/27/2025 8:45 AM EDT [facility] Hematocrit 40.9 35.0 - 47.0 % LAB HEMETOLOGY METHOD 06/27/2025 8:45 AM [facility] MCV 86.1 79.0 - 98.0 FL LAB HEMETOLOGY METHOD 06/27/2025 8:45 AM [facility] MCH 27.6 27.0 - 32.0 pcg LAB HEMETOLOGY METHOD 06/27/2025 8:45 [facility] MCHC 32.0 32.0 - 37.0 g/dL LAB HEMETOLOGY METHOD 06/27/2025 8:45 AM [facility] RDW 13.5 11.0 - 15.0 % LAB HEMETOLOGY METHOD 06/27/2025 8:45 AM [facility] Platelets 334 130 - 400 K/mcL LAB HEMETOLOGY METHOD 06/27/2025 8:45 AM [facility] MPV 8.8 7.0 - 11.0 FL LAB HEMETOLOGY METHOD 06/27/2025 8:45 AM [facility] NRBC 0.0 <1.0 % LAB HEMETOLOGY METHOD 06/27/2025 8:45 AM [facility] NRBC Absolute 0.00 <0.10 K/mcL LAB HEMETOLOGY METHOD 06/27/2025 8:45 AM [facility] Neutrophils Relative 48.9 % LAB HEMETOLOGY METHOD 06/27/2025 8:45 AM [facility] Lymphocytes Relative 39.6 % LAB HEMETOLOGY METHOD 06/27/2025 8:45 AM [facility] Monocytes Relative 7.9 % LAB HEMETOLOGY METHOD 06/27/2025 8:45 AM [facility] Eosinophils Relative 2.8 % LAB HEMETOLOGY METHOD 06/27/2025 8:45 AM EDT [facility] Basophils Relative 0.5 % LAB HEMETOLOGY METHOD 06/27/2025 8:45 AM EDT [facility] Immature Granulocytes Relative 0.3 % LAB HEMETOLOGY METHOD 06/27/2025 8:45 AM EDT [facility] Neutrophils Absolute 3.11 1.50 - 7.00 K/mcL LAB HEMETOLOGY METHOD 06/27/2025 8:45 AM EDT [facility] Lymphocytes Absolute 2.52 1.00 - 5.00 K/mcL LAB HEMETOLOGY METHOD 06/27/2025 8:45 AM EDT [facility] Monocytes Absolute 0.50 0.20 - 1.00 K/mcL LAB HEMETOLOGY METHOD [facility]/27[facility]2025 8:[facility] Eosinophils Absolute 0.18 0.00 - 0.50 K/mcL LAB HEMETOLOGY METHOD 06/27/2025 8:45 AM [facility] Basophils Absolute 0.03 0.00 - 0.20 K/mcL LAB HEMETOLOGY METHOD 06/27/2025 8:45 [facility] Immature Granulocytes Absolute 0.02 0.00 - 0.03 K/mcL LAB HEMETOLOGY METHOD 06/27/2025 8:45 AM [facility] Blood Venous blood specimen / Unknown Venipuncture / Unknown 06/27/2025 7:34 AM EDT 06/27/2025 8:36 AM EDT Melody DIANE LAB BLOOD ORDERABLES Fin al Result [facility] [address] [place] [address], * Lipase (06/27/2025 7:34 AM EDT) Lipase 24 13 - 75 unit/L LAB CHEMISTRY METHOD 06/27/2025 9:07 AM [facility] Blood Venous blood specimen / Unknown Venipuncture / Unknown 06/27/2025 7:34 AM EDT 06/27/2025 8:36 AM EDT us Phoenix Lama MD LAB BLOOD ORDERABLES Final Res ult [facility] [address] [place] [address], [place] [phone] * (ABNORMAL) Comprehensive metabolic panel (06/27/2025 7:34 AM EDT) Sodium 140 133 - 145 mmol/L LAB CHEMISTRY METHOD 06/27/2025 9:08 AM [facility] Potassium 4.2 3.5 - 5.5 mmol/L LAB CHEMISTRY METHOD 06/27/2025 9:08 AM [facility] Chloride 107 96 - 110 mmol/L LAB CHEMISTRY METHOD 06/27/2025 9:08 AM [facility] CO2 31 21 - 32 mmol/L LAB CHEMISTRY METHOD 06/27/2025 9:08 AM [facility] Anion Gap 2(L) 3 - 11 LAB CHEMISTRY METHOD 06/27/2025 9:08 AM [facility] Glucose 87 70 - 100 mg/dL LAB CHEMISTRY METHOD 06/27/2025 9:08 AM [facility] BUN 10 5 - 25 mg/dL LAB CHEMISTRY METHOD 06/27/2025 9:08 AM [facility] Creatinine 0.82 0.50 - 1.10 mg/dL LAB CHEMISTRY METHOD 06/27/2025 9:08 AM [facility] eGFR 86 >=60 mL/min/1. 73m2 LAB CHEMISTRY METHOD 06/27/2025 9:08 AM [facility] Comment:Calculation based on the Chronic Kidney Disease Epidemiology Collaboration (CKD-EPI) equation refit without adjustment for race. BUN/Creatinine Ratio 12.2 LAB CHEMISTRY METHOD 06/27/2025 9:08 AM [facility] Calcium 9.4 8.5 - 10.5 mg/dL LAB CHEMISTRY METHOD 06/27/2025 9:08 AM [facility] AST (SGOT) 22 10 - 42 unit/L LAB CHEMISTRY METHOD 06/27/2025 9:08 AM [facility] ALT (SGPT) 30 10 - 60 unit/L LAB CHEMISTRY METHOD 06/27/2025 9:08 AM [facility] Alkaline Phosphatase 99 42 - 121 unit/L LAB CHEMISTRY METHOD 06/27/2025 9:08 AM [facility] Total Protein 7.6 6.0 - 8.0 g/dL LAB CHEMISTRY METHOD 06/27/2025 9:08 AM [facility] Albumin 4.1 3.2 - 5.0 g/dL LAB CHEMISTRY METHOD 06/27/2025 9:08 AM [facility] Total Bilirubin 0.3 0.0 - 1.4 mg/dL LAB CHEMISTRY METHOD 06/27/2025 9:08 AM [facility] Blood Venous blood specimen / Unknown Venipuncture / Unknown 06/27/2025 7:34 AM EDT 06/27/2025 8:36 AM EDT us Melody DIANE LAB BLOOD ORDERABLES Fin al Result [facility] [address] [place] [address], from Last 3 Months Insurance MEDICAID - [place] Care Teams Tail Board Man Relationship Specialty Start Date End Date Mikala Borges MD [address] [place] [phone] PCP - General Family Medicine 06/27/25
--- OUTSIDE RECORDS SUMMARY | 2025-07-03 11:58 | XMS_ITS | Encounter Summary ---
Author Organization [facility] Address [address] [place] [address] [address] [place] [address] Care Team Providers Care Deckhand Name Role Phone Mikala Borges MD Primary Care Provider [phone] Sherrie Etienne RN Unavailable [phone] Willow Hernandez Unavailable Reason for Visit * Reason Onset Date Comments ER Follow-up 06/30/2025 Encounter Details Date Type Department Care Team (Late st Contact Info) Description 06/30/2025 Telephone [facility] [address] [place] [address] Mikala Borges MD [address] [place] [address] ER Follow-up Social History Tobacco Use Types Packs/Day Years [...] Telephone Encounter - Leah Jamil RN - 06/30/2025 12:29 PM EDT Called pt. Via [employer] spanish interpreter/translator [phone] [place]. Date: 06/27 [facility]: [facility] Seen for: back and abdominal pain Symptomatic Yes *if yes message should go to Triage Pt. States that she went to [facility] ED for back pain on 06/27/25 and abdominal pain on right side. Pt. Had testing and a CT scan for a kidney stone but that came back negative. MD stated that he thought maybe it was sciatica. Pt. States she has pain when she tries to lay down, sit or stand. No pain withurination or when having BM's. Pt. States they did prescribe her muscle relaxers Robaxin 500mg 1 pill 2 times a day and Ketorolac 10 mg 1 pill every 6 hours as needed. Pt. Denies any vomiting or diarrhea. No fever. Protocol Used: Abdominal Pain - Female (Adult) Protocol-Based Disposition: See in Office or Video Visit Today Video visit offer not recorded Positive Triage Questions: * Moderate pain (e.g., interferes with normal activities that comes and goes (cramps) lasts > 24hours (Exception: Pain with diarrhea or vomiting; see Diarrhea or Vomiting Protocol.) * Patient wants to be seen * All higher-acuity triage questions were negative Care Advice Discussed: * Rest * Drink Clear Fluids * Avoid Aspirin and NSAIDs * Expected Course - Abdomen Pain Protocol Used: Flank Pain (Adult) Protocol-Based Disposition: See in Office or Video Visit Today- appt. Made for 07/01/25 at 1115am with PCP. Video visit offer not recorded Positive Triage Questions: * Moderate pain (e.g., interferes with normal activities or awakens from sleep) * Patient wants to be seen * All higher-acuity triage questions were negative Care Advice Discussed: * Use a Cold Pack for Pain * Use Heat After 48 Hours for Pain * Pain Medicines * Telephone Encounter - Shruti Arana - 06/30/2025 11:21 AM EDT Patient calling to report ED visit on : Date: 06/27 Hospital: [facility] Seen for: back and abdominal pain Symptomatic Yes *if yes message should go to Triage Patient advised will forward to team nurse for follow up Contact pt at [phone] Need spanish interpreter/translator documented in this encounter Plan of Treatment Upcoming Encounters Date Type Department Care Team (Late st Contact Info) Description 08/24/2025 10:00 AM EDT Office Visit [facility] [address] [place] [phone] Mikala Borges MD [address] [place] [phone] documented as of this encounter Visit Diagnoses Not on filedocumented in this encounter Additional Health Concerns Assessment Noted Time PHQ-9 Depression Total Score: 6 08/12/20 24 1:10 PM EDT documented as of this encounter Care Teams Deckhand Relationship Specialty Start Date End Date Mikala Borges MD [address] [place] [phone] PCP - General Family Medicine 10/29/18 Sherrie Etienne RN [address] [place] [address] BRE Rivera [phone] Registered Nurse Family Medicine 06/30/25 Willow Hernandez 06/30/25 documented as of this encounter
--- OUTSIDE RECORDS SUMMARY | 2025-07-03 11:58 | XMS_ITS ---
Author Organization [employer] Address [address] [place] [address] 7 [place] [address] Care Team Providers Care Copy Editor Name Role Phone Mikala Borges MD Primary Care Provider [phone] Sherrie Etienne RN Unavailable [phone] Willow Hernandez Unavailable CHW Complex Status:Outreach In Progress (Enrolling) Start date:06/30/2025 Enrollment reason:ADT Feed Overview ADT- [facility] ED 06/27/25. Please outreach for enrollment. Case Team Name Relationship Phone Willow Hernandez(Responsible Staff) [phone] Continued Care and Services Coordination
--- OUTSIDE RECORDS SUMMARY | 2025-07-03 11:58 | XMS_ITS | Encounter Summary ---
Author Organization [employer] Address [address] [place] [address] 7 [place] [address] Care Team Providers Care Dust Brush Assembler Name Role Phone Mikala Borges MD Primary Care Provider [phone] Sherrie Etienne RN Unavailable [phone] Sherrie Etienne RN Unavailable [phone] Willow Hernandez Unavailable Encounter Details Date Type Department Care Team (Latest Contact Info) Description 09/09/2021 Abstract [facility] CONVERSIONS Dental, Provider, DDS Social History Tobacco [...] Upcoming Encounters Date Type Department Care Team ( st Contact Info) Description 08/24/2025 10:00 AM EDT Office Visit [facility] MEDICINE [address] [place] [address] Mikala Borges MD [address] [place] [address] documented as of this encounter Visit Diagnoses Not on filedocumented in this encounter Care Teams Dust Brush Assembler Relationship Specialty Start Date End Date Mikala Borges MD [address] [place] [address] PCP - General Family Medicine 10/29/18 Sherrie Etienne, RN [address] [place] [address] Sales Operations DirectorPowerhouse Electrician Apprentice 10/03/24 01/04/25 Sherrie Etienne RN [address] [facility] [address] Registered Nurse Family Medicine 06/30/25 Willow Hernandez 06/30/25 documented as of this encounter
--- OUTSIDE RECORDS SUMMARY | 2025-07-03 11:58 | XMS_ITS ---
Author Organization [employer] Address [address] [place] [address] 7 [place] [address] Care Team Providers Care Culture Manager Name Role Phone Mikala Borges MD Primary Care Provider [phone] Sherrie Etienne RN Unavailable [phone] Willow Hernandez Unavailable CM Complex Status:Outreach In Progress (Enrolling) Start date:06/30/2025 Enrollment reason:ADT Feed Overview [facility] Case Team Name Relationship Phone Sherrie Etienne RN(Responsible Staff) Registered Nurse [phone] Continued Care and Services Coordination
--- OUTSIDE RECORDS SUMMARY | 2025-07-03 11:58 | XMS_ITS | Encounter Summary ---
Author Organization [employer] Address [address] [place] [address] 7 [place] [address] Care Team Providers Care Flight Control Specialist Name Role Phone Mikala Borges MD Primary Care Provider [phone] Sherrie Etienne RN Unavailable [phone] Sherrie Etienne RN Unavailable [phone] Willow Hernandez Unavailable Reason for Referral * Imaging (Urgent) - Closed Specialty Diagnoses / Procedures Referred By Montserrat dawson Referred To Contact Radiology Diagnoses Breast pain Procedures BI US Breast Complete Right Joy Zimmerman CNM [address] [place] [address] Phone: tel: fax: [address] Phone: tel: fax: Referral ID Status Reason Start Date Expiration Date Visits Re quested Visits Authorized [id number] Closed 11/25/2024 11/25/2025 1 1 Encounter Details Date Type Department Care Team (Late st Contact Info) Description 11/25/2024 Orders Only [facility] MEDICINE [address] [place] [address] Joy Zimmerman CNM [address] [place], [place] [phone] Breast pain (Primary Dx) Social History Tobacco Use Types [...] Description 08/24/2025 10:00 AM EDT Office Visit [facility] MEDICINE [address] [place], [place] [phone] Mikala Borges MD 230 [place] [address] Scheduled Orders Name Type Priority Associated Diagnoses Orde r Schedule BI US Breast Complete Right Imaging Urgent Breast pain Expected: 11/25/2024, Expires: 01/23/2026 documented as of this encounter Procedures Procedure Name Priority Date/Time Associated Diagnosis Comments BI US BREAST LIMITED BILATERAL Urgent 01/08/2025 1:30 PM EDT documented in this encounter Results * BI US Breast Limited Bilateral (01/08/2025 1:30 PM EDT) Anatomical Region Laterality Modality Breast Bilateral Ultrasound 01/08/2025 1:30 PM EDT Narrative 01/08/2025 2:09 PM [address] [place] [address] Ultrasound Report Signed Patient: Carmelina Etienne MR#: [id number] : 1970 Acct:[id number] Age/Sex: 54 / F ADM Date: 01/08/25 Loc: HO.MAMMO Attending Dr: Mikala Borges MD Ordering Physician: JOY ZIMMERMAN CNM Date of Service: 01/08/25 Procedure(s): US breast BI limited mamm only Accession Number(s): [id number] cc: JOY ZIMMERMAN CNM EXAMINATION: MM DIAGNOSTIC DIGITAL BREAST [...] 01/08/25 1406 DD/ 1330 TD/TT: 01/08/25 1341 Grocery Clerk Stocking: Procedure Note Donotuseinterpreter, Image - 01/08/2025 [facility]'s [address] [place] [address] Ultrasound Report Signed Patient: Carmelina Etienne EMR#: [id number] : 1970Acct:[id number] Age/Sex: 54 / FADM Date: 01/08/25 Loc: [facility] Attending Dr: Mikala Borges MD Ordering Physician: JOY ZIMMERMAN CNM Date of Service: 01/08/25 Procedure(s): US breast BI limited mamm only Accession Number(s): [id number] cc: JOY ZIMMERMAN CNM EXAMINATION: MM DIAGNOSTIC DIGITAL BREAST [...] Nohemy Sebastian DO 01/08/2025 02:06 PM EDT RP Dictated By: Nohemy Sebastian DO Signed By: <Electronically signed by Nohemy Sebastian DO in OV> 01/08/25 1406 DD/ 1330 TD/TT: 01/08/25 1341 Grocery Clerk Stocking: us Joy Zimmerman CNM IMG US PROCEDURES Edited Result - Final documented in this encounter Visit Diagnoses Diagnosis Breast pain- Primary Mastodynia documented in this encounter Additional Health Concerns Assessment Noted Time PHQ-9 Depression Total Score: 6 08/12/20 24 1:10 PM EDT documented as of this encounter Care Teams Flight Control Specialist Relationship Specialty Start Date End Date Mikala Borges MD [address] [place] [address] PCP - General Family Medicine 10/29/18 Sherrie Etienne RN [address] [place] [address] Ship CeilerMusic Education Adjunct Professor 10/03/24 01/04/25 Sherrie Etienne RN [address] [place] [address] Registered Nurse Family Medicine 06/30/25 Willow Hernandez 06/30/25 documented as of this encounter
--- OUTSIDE RECORDS SUMMARY | 2025-07-03 11:58 | XMS_ITS | Encounter Summary ---
Author Organization [facility] Address [address] [facility] [address] [place] [address] Phone Care Team Providers Care [place] Seamer Name Role Phone Pcp, Unknown Primary Care Provider Unavailabl e Encounter Details Date Type Department Care Team (Late st Contact Info) Description 05/24/2022 Procedure Pass [facility] Ct Scan - [address] [address] Social History Tobacco Use Types Packs/Day Years Used Date Smoking Tobacco: Never Smokeless Tobacco: Never Alcohol Use Standard Drinks/Week Comments Not Currently 0 (1 standard drink = 0.6 oz pur e alcohol) Comments Unknown Sex and Gender Information Value Date Recorded Sex Assigned at Female 05/24/2022 5:17 PM EDT Legal Sex Female 4:47 PM EDT Gender Identity Female 05/24/2022 5:17 PM EDT Sexual Orientation Straight 05/24/2022 5: 17 PM EDT documented as of this encounter Functional Status * Calculated C-SSRS Risk Score (Lifetime/Recent) Answer Date of Assessment Author No Risk Indicated 05/24/2022 5:17 PM EDT Talia Patel, RN * [place] Suicide Severity Rating Scale (Screener/Recent Self-Report) Question Answer Date of Assessment Author 1. Wish to be (Past 1 Month) No 022 5:17 PM EDT Talia Kiser, RN 2. Non-Specific Active Suici tatyana Thoughts (Past 1 Month) No 05/24/2022 5:17 PM EDT Talia Kiser, RN 6. Suicidal Behavior (Lifetime) No 5:17 PM EDTalia Gonzalez RN documented as of this encounter Plan of Treatment Not on file documented as of this encounter Visit Diagnoses Not on filedocumented in this encounter Care Teams [place] Seamer Relationship Specialty Start Date End Date Pcp, Unknown PCP - General 05/24/22 documented as of this encounter Additional Source Comments The information contained in this document represents components of the legal health record. It is not the complete legal health record.[facility]
--- OUTSIDE RECORDS SUMMARY | 2025-07-03 11:58 | XMS_ITS | Encounter Summary ---
Author Organization [employer] Address [address] [place] [address] 7 [place] [address] Care Team Providers Care Laborer Wood Preserving Plant Name Role Phone Mikala Borges MD Primary Care Provider [phone] Sherrie Etienne RN Unavailable [phone] Willow Hernandez Unavailable Encounter Details Date Type Department Care Team (Late st Contact Info) Description 06/30/2025 Patient Outreach [facility] MEDICINE [address] [place], [place] [phone] Mikala Borges MD [address] [place], [place] [phone] Social History Tobacco Use Types Packs/Day Years [...] Description 08/24/2025 10:00 AM EDT Office Visit [facility] MEDICINE [address] [place] [address] Mikala Borges MD [address] [place] [address] documented as of this encounter Visit Diagnoses Not on filedocumented in this encounter Additional Health Concerns Assessment Noted Time PHQ-9 Depression Total Score: 6 08/12/20 24 1:10 PM EDT documented as of this encounter Care Teams Laborer Wood Preserving Plant Relationship Specialty Start Date End Date Mikala Borges MD [address] [place] [address] PCP - General Family Medicine 10/29/18 Sherrie Etienne RN [address] [place] [address] Registered Nurse Family Medicine 06/30/25 Willow Hernandez 06/30/25 documented as of this encounter
--- OUTSIDE RECORDS SUMMARY | 2025-07-03 11:58 | XMS_ITS | Encounter Summary ---
Author Organization [employer] Address [address] [place] [address] 7 [place] [address] Care Team Providers Care Licensing And Registration Director Name Role Phone Mikala Borges MD Primary Care Provider [phone] Sherrie Etienne RN Unavailable [phone] Willow Hernandez Unavailable Reason for Visit * Reason Comments Care Management C3- chart review Encounter Details Date Type Department Care Team (Late st Contact Info) Description 06/30/2025 Patient Outreach [facility] MEDICINE 230 [place], [place] [phone] Mikala Borges MD [address] [place], [place] [phone] Care Management (C3- chart review) Social History Tobacco Use Types Packs/Day Years [...] as of this encounter Progress Notes * Sherrie Etienne RN - 06/30/2025 7:54 AM EDT KINGSLEY Etienne RN, performed chart review, in anticipation of initial assessment with patient, as patient has stratified for Adult Complex Care through the ADT feed. History significant for allergic rhinitis, asthma, carpal tunnel syndrome, chronic pain, chronic urticaria, contact dermatitis, dissociative convulsions, eczema, fibromyalgia, GERD, IBS, recurrent kidney stones, migraine with aura and without status migrainosus, obesity, trochanteric bursitis, s/p laparoscopic appendectomy, prediabetes, abdominal bloating, headache, missing teeth, vitamin D deficiency, chronic bilateral lowback pain with right sided sciatica, difficulty sleeping, ill fitting dentures, left knee pain, osteoarthritis of left knee, neuropathy of lower extremity, status post hysterectomy, and depressive disorder. Specialists include [facility], [facility], [facility], [facility], [facility], Orthopedic Surgery ([facility]). ED visits within the last 12months include [facility] ED 06/27/25 and [facility] 06/26/25. Last appointment in PCP office on 06/15/25. No future appointments scheduled at this time. documented in this encounter Plan of Treatment Upcoming Encounters Date Type Department Care Team (Late st Contact Info) Description 08/24/2025 10:00 AM EDT Office Visit [facility] MEDICINE [address] [place] [address] Mikala Borges MD [address] [place] [address] documented as of this encounter Visit Diagnoses Not on filedocumented in this encounter Additional Health Concerns Assessment Noted Time PHQ-9 Depression Total Score: 6 08/12/20 24 1:10 PM EDT documented as of this encounter Care Teams Licensing And Registration Director Relationship Specialty Start Date End Date Mikala Borges MD [address] [place] [address] PCP - General Family Medicine 10/29/18 Sherrie Etienne RN [address] [place] [address] Registered Nurse Family Medicine 06/30/25 Willow Hernandez 06/30/25 documented as of this encounter
--- OUTSIDE RECORDS SUMMARY | 2025-07-03 11:58 | XMS_ITS | Encounter Summary ---
Author Organization [employer] Address [address] [place] [address] 7 [place] [address] Care Team Providers Care Dock Builder Name Role Phone Mikala Borges MD Primary Care Provider [phone] Sherrie Etienne RN Unavailable [phone] Willow Hernandez Unavailable Encounter Details Date Type Department Care Team (Late st Contact Info) Description 07/01/2025 Patient Outreach [facility] MEDICINE [address] [place], [place] [phone] Mikala Borges MD [address] [place], [place] [phone] Social History Tobacco Use Types Packs/Day Years [...] Description 08/24/2025 10:00 AM EDT Office Visit [facility] MEDICINE [address] [place] [address] Mikala Broges MD [address] [place] [address] documented as of this encounter Visit Diagnoses Not on filedocumented in this encounter Additional Health Concerns Assessment Noted Time PHQ-9 Depression Total Score: 6 08/12/20 24 1:10 PM EDT documented as of this encounter Care Teams Dock Builder Relationship Specialty Start Date End Date Mikala Borges MD [address] [place] [address] PCP - General Family Medicine 10/29/18 Sherrie Etienne RN [address] [place] [address] Registered Nurse Family Medicine 06/30/25 Willow Hernandez 06/30/25 documented as of this encounter
--- OUTSIDE RECORDS SUMMARY | 2025-07-03 11:58 | XMS_ITS | Encounter Summary ---
Author Organization [employer] Address [address] [place] [address] 7 [place] [address] Care Team Providers Care Clerical And Office Support Workers Name Role Phone Mikala Borges MD Primary Care Provider [phone] Sherrie Etienne RN Unavailable [phone] Willow Hernandez Unavailable Reason for Visit * Reason Comments Care Coordination CHW chart review Encounter Details Date Type Department Care Team (Latest Contact Info) Description 06/30/2025 Patient Outreach [facility] MEDICINE [address] [place], [place] [phone] Mikala Borges MD [address] [place], [place] [phone] Care Coordination (CHW chart review) Social History Tobacco Use Types [...] encounter Progress Notes * Willow Hernandez - 06/30/2025 1:33 PM EDT CM/C3 KACY Hernandez Chart Review KACY Hernandez reviewed chart review completed by KINGSLEY Etienne RN, performed chart review, in anticipation of initial assessment with patient, as patient has stratified for C3 Adult Complex Care through the ADT feed. [...] disorder. Specialists include [facility], [facility], [facility], [facility], [facility], Orthopedic Surgery ([facility]). ED visits within the last 12months include [facility] ED 06/27/25 and [facility] 06/26/25. Last appointment in PCP office on 06/15/25. No future appointments scheduled at this time. documented in this encounter Plan of Treatment Upcoming Encounters Date Type Department Care Team (Late st Contact Info) Description 08/24/2025 10:00 AM EDT Office Visit [facility] MEDICINE [address] [place] [address] Mikala Borges MD [address] [place] [address] documented as of this encounter Visit Diagnoses Not on filedocumented in this encounter Additional Health Concerns Assessment Noted Time PHQ-9 Depression Total Score: 6 08/12/20 24 1:10 PM EDT documented as of this encounter Care Teams Clerical And Office Support Workers Relationship Specialty Start Date End Date Mikala oBrges MD [address] [place] [address] PCP - General Family Medicine 10/29/18 Sherrie Etienne, RN [address] [place] [address] Registered Nurse Family Medicine 06/30/25 Willow Hernandez 06/30/25 documented as of this encounter
--- OUTSIDE RECORDS SUMMARY | 2025-07-03 11:58 | XMS_ITS | Encounter Summary ---
Author Organization [employer] Address [address] [place] [address] 7 [place] [address] Care Team Providers Care Pan Helper Name Role Phone Mikala Borges MD Primary Care Provider [phone] Sherrie Etienne RN Unavailable [phone] Willow Hernandez Unavailable Reason for Visit * Reason Comments Care Coordination CM/CHW outreach Encounter Details Date Type Department Care Team (Latest Contact Info) Description 06/30/2025 Patient Outreach [facility] MEDICINE [address] [place], [place] [phone] Mikala Borges MD [address] [place], [place] [phone] Care Coordination (CM/CHW outreach) Social History Tobacco Use Types Packs/Day Years [...] Progress Notes * Willow Hernandez - 06/30/2025 1:50 PM EDT CHW Willow Hernandez, placed outbound call to patient introducing herself from [facility] CM Department, in regards to offering services. Patient's name and was confirmed. Patient agreesto participate in program. Appt. for initial assessment scheduled for 07/06/25 @10AM tele with CM Sherrie Etienne RN. CHW reinforced direct contact information or CM for any additional questions or concerns and extended clinic hours on Mondays and Wednesdays, and Walk-In Urgent Care Located in [facility] of [facility]. Patient provided with after-hours line for [facility], ,which offer night time triage service and option to transfer to extension educator provider if needed. Patient verbalizes understanding, and able to repeat back to journalists and other writers. documented in this encounter Plan of Treatment Upcoming Encounters Date Type Department Care Team ([facility] st Contact Info) Description 08/24/2025 10:00 AM EDT Office Visit [facility] MEDICINE [address] [place] [address] Mikala Borges MD [address] [place] [address] documented as of this encounter Visit Diagnoses Not on filedocumented in this encounter Additional Health Concerns Assessment Noted Time PHQ-9 Depression Total Score: 6 08/12/20 24 1:10 PM EDT documented as of this encounter Care Teams Pan Helper Relationship Specialty Start Date End Date Mikala Borges MD [address] [place] [address] PCP - General Family Medicine 10/29/18 Sherrie Etienne RN [address] [place] [address] Registered Nurse Family Medicine 06/30/25 Willow Hernandez 06/30/25 documented as of this encounter
== END 2025-07-03 12:40 | disposition home or self-care (01) ==
LOC: HO.HGI 10:53
PROVIDERS: PCP Family Medicine; Visit Provider Nurse Practitioner
DX: K59.04 Chronic idiopathic constipation (principal); K21.9 Gastro-esophageal reflux disease without esophagitis; K30 Functional dyspepsia; R11.2 Nausea with vomiting, unspecified; M54.6 Pain in thoracic spine; M54.14 Radiculopathy, thoracic region; M54.17 Radiculopathy, lumbosacral region
CPT/HCPCS: 99213

== ENCOUNTER → 2025-07-03 10:53 | Outpatient (BNVA) | payer MEDICAID, SELFPAY | PROVIDERS: PCP Family Medicine; Visit Provider Nurse Practitioner | DX: K59.04 Chronic idiopathic constipation (principal); R10.9 Unspecified abdominal pain; M54.6 Pain in thoracic spine; K30 Functional dyspepsia; K21.9 Gastro-esophageal reflux disease without esophagitis; R11.2 Nausea with vomiting, unspecified | CPT/HCPCS: 99212 ==

== ENCOUNTER → 2025-07-20 07:49 | Outpatient (BNV) | payer MEDICAID, SELFPAY | PROVIDERS: PCP Family Medicine; Visit Provider Radiology Diagnostic Radiology | DX: M54.14 Radiculopathy, thoracic region (principal) | CPT/HCPCS: 72146 ==

== ENCOUNTER 2025-07-20 08:01 | Outpatient (REF) | payer MEDICAID, SELFPAY ==
--- NOTE | ~2025-07-20 | MR_ITS ---
FINDINGS: MR THORACIC SPINE WITH CONTRAST CLINICAL INFORMATION: Thoracic radiculopathy. Mid back pain, wraps around left side to abdomen. Symptoms x6 months. COMPARISON: None TECHNIQUE: Multiplanar multisequence MR imaging of the thoracic spine was done without IV contrast. Standard sequences were utilized. Examination performed on a 1.5 Jacqueline Siemens high-field unit. FINDINGS: ALIGNMENT: There is a mild right convex scoliosis, apex at T5-6. There is a normal thoracic kyphosis. There is no subluxation. VERTEBRAL BODIES AND BONE MARROW: There is no fracture, compression deformity, bone marrow edema, or suspicious infiltrating abnormal bone marrow signal. There is no malalignment. DISCS: There is mild diffuse loss of disc signal without significant loss of disc height. PARASPINAL SOFT TISSUES: There is no abnormal paraspinous or paravertebral edema or abnormal fluid collection. The aorta is nonaneurysmal. The kidneys appear normal. There are no pleural effusions. SPINAL CORD: There is a subtle dorsal flattening of the thoracic cord at the T5 level, spanning to the upper T6 level, with prominent CSF signal posterior to this region. The findings are suggestive of an underlying arachnoid cyst dorsal to the cord. (Series 16, image 10; series 21, images 22-25). There is no cord signal abnormality. The cord is otherwise normal in caliber. The conus terminates at L1 and is normal in signal and morphology. SPINAL LEVELS: C7-T1: There is no central canal or neural foraminal narrowing. Normal facets. T1-T2: There is no central canal or neural foraminal narrowing. Normal facets. T2-T3: There is no central canal or neural foraminal narrowing. Normal facets. T3-T4: There is no central canal or neural foraminal narrowing. There is mild bilateral facet degeneration. T4-T5: There is no central canal or neural foraminal narrowing. There is mild bilateral facet degeneration. T5-T6: There is no central canal or neural foraminal narrowing. Dorsal impression upon the thoracic cord with widened CSF space dorsally as discussed above. There is mild bilateral facet degeneration. T6-T7: There is a left lateral tiny disc protrusion without significant mass effect. There is otherwise no central canal or neural foraminal narrowing. There is mild bilateral facet degeneration. T7-T8: There is a tiny left paracentral and lateral disc protrusion without significant mass effect. There is no central canal or neural foraminal narrowing. Normal facets. T8-T9: There is no central canal or neural foraminal narrowing. Normal facets. T9-T10: There is no central canal or neural foraminal narrowing. Normal facets. T10-T11: There is no central canal or neural foraminal narrowing. There is mild bilateral facet degeneration. T11-T12: There is no central canal or neural foraminal narrowing. There is mild bilateral facet degeneration. T12-L1: There is no central canal or neural foraminal narrowing. There is mild bilateral facet degeneration. MR/MR thoracic spine wo con IMPRESSION: 1. Subtle dorsal impression upon the cord at the T5 level to the T6 level, suggestive of an underlying arachnoid cyst. There is minimal mass effect upon the cord at this level without underlying cord signal abnormality. 2. No additional significant central canal or neural foraminal narrowing at any level. 3. Mild disc degeneration and mild multilevel facet degeneration as described. Electronically signed by: Jesus Kendall MD 07/20/2025 11:01 AM EDT
--- OUTSIDE RECORDS SUMMARY | 2025-07-20 08:11 | XMS_ITS | Clinical Summary ---
Author Organization [facility] Address [address] [place] [address] Phone Care Team Providers Care Beer Still Runner Compounder Name Role Phone Mikala Borges MD Primary Care Provider [phone] Allergies Active Allergy Reactions Criticality Noted Date Comments Divalproex 06/27/2025 Paroxetine Hcl 06/27/2025 Olanzapine 06/27/2025 Medications methocarbamoL (ROBAXIN) 500 mg tablet Take 1 tablet (500 mg total) by mouth 2 (two) times a day for 10 days. 20 tablet 5 Active ketorolac (TORADOL) 10 mg tablet Take [...] EDT - 06/27/2025 2:41 PM EDT Emergency [facility] Emergency [address] [place] [address] Phoenix Lama MD Acute right-sided [...] of Health Screening 06/27/2025 COVID-19 Vaccine ( - season) 2025 03/30/2021, [...] Signed Date: 06/27/2025 10:25 ET Workstation ID: [id number] Transcribed By: Self Edit Transcribed Date: 06/27/2025 [...] Signed Date: 06/27/2025 10:25 ET Workstation ID: [id number] Transcribed By: Self Edit Transcribed Date: 06/27/2025 10:22 ET us Phoenix Lama MD IM US PROCEDURES Final Result * CT Abdomen [...] Signed Date: 06/27/2025 09:43 ET Workstation ID: [id number] Transcribed By: Self Edit Transcribed Date: 06/27/2025 [...] 0.3 cm nonobstructing upper pole right renal [id number] cm from the skin. There is an [...] Signed Date: 06/27/2025 09:43 ET Workstation ID: [id number] Transcribed By: Self Edit Transcribed Date: 06/27/2025 09:32 ET Phoenix Lama MD [facility] CT PROCEDURES Final Result * (ABNORMAL) Urinalysis with reflex microscopic and culture (06/27/2025 7:39 AM EDT) Specific [place] Urine 1.018 1.003 - 1.030 LAB URINALYSIS - AUTOMATED METHOD 06/27/2025 8:46 AM EDT [facility] pH, Urine 6.5 5.0 - 8.0 pH LAB URINALYSIS - AUTOMATED METHOD 06/27/2025 8:[facility] Leukocytes, Urine Negative Negative LAB URINALYSIS - AUTOMATED METHOD 06/27/2025 8:46 AM [facility] Nitrite, Urine Negative Negative LAB URINALYSIS - AUTOMATED METHOD 06/27/2025 8:46 AM [facility] Protein, Urine Negative <=Trace mg/dL LAB URINALYSIS - AUTOMATED METHOD 06/27/2025 8:46 AM [facility] Glucose, Urine Negative Negative mg/dL LAB URINALYSIS - AUTOMATED METHOD 06/27/2025 8:46 AM [facility] Ketones, Urine Negative Negative mg/dL LAB URINALYSIS - AUTOMATED METHOD 06/27/2025 8:46 AM [facility] Urobilinogen, Urine 0.2 0.2 - 1.0 mg/dL LAB URINALYSIS - AUTOMATED METHOD 06/27/2025 8:46 AM [facility] Bilirubin, Urine Negative Negative LAB URINALYSIS - AUTOMATED METHOD 06/27/2025 8:46 AM [facility] Blood, Urine Small(A) Negative LAB URINALYSIS - AUTOMATED METHOD 06/27/2025 8:46 AM [facility] RBC, Urine 8.1(H) 0 - 4 /HPF LAB URINALYSIS - AUTOMATED METHOD 06/27/2025 8:46 AM [facility] WBC, Urine 0.9 0 - 4 /HPF LAB URINALYSIS - AUTOMATED METHOD 06/27/2025 8:46 AM [facility] Squamous Epithelial, Urine 16 0 - 60 /LPF LAB URINALYSIS - AUTOMATED METHOD 06/27/2025 8:46 AM [facility] Bacteria, Urine Negative Negative /HPF LAB URINALYSIS - AUTOMATED METHOD 06/27/2025 8:46 AM [facility] Hyaline Casts, Urine 0.8 0 - 3 /LPF LAB URINALYSIS - AUTOMATED METHOD 06/27/2025 8:46 AM EDT [facility] Urine Urine specimen obtained by clean catch procedure / Unknown Non-blood Collection / Unknown 06/27/2025 7:39 AM EDT 06/27/2025 8:36 AM EDT Melody DIANE LAB URINE ORDERABLES Fin al Result Performing Organization Address [facility] Co de Phone Number [facility] [address] [place] [address], [place] [phone] * Adorno urine culture tube (06/27/2025 7:39 AM EDT) Pathologist [facility] Extra Tube Hold for add-ons. 06/27/2025 10:01 AM EDT [facility] Comment:Auto resulted. Urine Urine specimen obtained by clean catch procedure / Unknown Non-blood Collection / Unknown 06/27/2025 7:39 AM EDT 06/27/2025 8:36 AM EDT Melody DIANE LAB URINE ORDERABLES Fin al Result Performing Organization Address [facility] de Phone Number [facility] [address] [place] [address], [place] [phone] * CBC auto differential (06/27/2025 7:34 AM EDT) WBC 6.4 4.8 - 10.8 K/[facility] LAB HEMETOLOGY METHOD 06/27/2025 8:45 AM EDT [facility] RBC 4.80 3.80 - 4.80 M/[facility] LAB HEMETOLOGY METHOD 06/27/2025 8:45 AM EDT [facility] Hemoglobin 13.1 11.5 - 16.0 g/dL LAB HEMETOLOGY METHOD 06/27/2025 8:45 AM EDT [facility] Hematocrit 40.9 35.0 - 47.0 % LAB HEMETOLOGY METHOD 06/27/2025 8:45 AM [facility] MCV 86.1 79.0 - 98.0 FL LAB HEMETOLOGY METHOD 06/27/2025 8:45 AM [facility] MCH 27.6 27.0 - 32.0 pcg LAB HEMETOLOGY METHOD 06/27/2025 8:45 AM [facility] MCHC 32.0 32.0 - 37.0 g/dL LAB HEMETOLOGY METHOD 06/27/2025 8:45 AM [facility] RDW 13.5 11.0 - 15.0 % LAB HEMETOLOGY METHOD 06/27/2025 8:45 AM [facility] Platelets 334 130 - 400 K/mcL LAB HEMETOLOGY METHOD 06/27/2025 8:45 AM [facility] MPV 8.8 7.0 - 11.0 FL LAB HEMETOLOGY METHOD 06/27/2025 8:45 AM [facility] NRBC 0.0 <1.0 % LAB HEMETOLOGY METHOD 06/27/2025 8:45 AM [facility] NRBC Absolute 0.00 <0.10 K/mcL LAB HEMETOLOGY METHOD 06/27/2025 8:45 AM [facility] Neutrophils Relative 48.9 % LAB HEMETOLOGY METHOD 06/27/2025 8:45 AM [facility] Lymphocytes Relative 39.6 % LAB HEMETOLOGY METHOD 06/27/2025 8:45 AM [facility] Monocytes Relative 7.9 % LAB HEMETOLOGY METHOD 06/27/2025 8:45 AM [facility] Eosinophils Relative 2.8 % LAB HEMETOLOGY METHOD 06/27/2025 8:45 AM [facility] Basophils Relative 0.5 % LAB HEMETOLOGY METHOD 06/27/2025 8:45 AM EDT [facility] Immature Granulocytes Relative 0.3 % LAB HEMETOLOGY METHOD 06/27/2025 8:45 AM EDT [facility] Neutrophils Absolute 3.11 1.50 - 7.00 K/mcL LAB HEMETOLOGY METHOD 06/27/2025 8:45 AM EDT [facility] Lymphocytes Absolute 2.52 1.00 - 5.00 K/mcL LAB HEMETOLOGY METHOD 06/27/2025 8:45 AM EDT [facility] Monocytes Absolute 0.50 0.20 - 1.00 K/mcL LAB HEMETOLOGY METHOD 06/27/2025 8:45 AM EDT [facility] Eosinophils Absolute 0.18 0.00 - 0.50 K/mcL LAB HEMETOLOGY METHOD 06/27/2025 8:45 AM EDT [facility] Basophils Absolute 0.03 0.00 - 0.20 K/mcL LAB HEMETOLOGY METHOD 06/27/2025 8:45 AM EDT [facility] Immature Granulocytes Absolute 0.02 0.00 - 0.03 K/mcL LAB HEMETOLOGY METHOD 06/27/2025 8:45 AM EDT [facility] Blood Venous blood specimen / Unknown Venipuncture / Unknown 06/27/2025 7:34 AM EDT 06/27/2025 8:36 AM EDT us Melody DIANE LAB BLOOD ORDERABLES Fin al Result [facility] [address] [place] [address], * Lipase (06/27/2025 7:34 AM EDT) Lipase 24 13 - 75 unit/L LAB CHEMISTRY METHOD 06/27/2025 9:07 AM [facility] Blood Venous blood specimen / Unknown Venipuncture / Unknown 06/27/2025 7:34 AM EDT 06/27/2025 8:36 AM EDT us Phoenix Lama MD LAB BLOOD ORDERABLES Final Res ult [facility] [address] [place] [address], * (ABNORMAL) Comprehensive metabolic panel (06/27/2025 7:34 AM EDT) Sodium 140 133 - 145 mmol/L LAB CHEMISTRY METHOD 06/27/2025 9:08 AM [facility] Potassium 4.2 3.5 - 5.5 mmol/L LAB CHEMISTRY METHOD 06/27/2025 9:08 AM [facility] Chloride 107 96 - 110 mmol/L LAB CHEMISTRY METHOD 06/27/2025 9:08 AM [facility] CO2 31 21 - 32 mmol/L LAB CHEMISTRY METHOD 06/27/2025 9:08 AM [facility] Anion Gap 2(L) 3 - 11 LAB CHEMISTRY METHOD 06/27/2025 9:08 AM [facility] Glucose 87 70 - 100 mg/dL LAB CHEMISTRY METHOD 06/27/2025 9:08 AM [facility] BUN 10 5 - 25 mg/dL LAB CHEMISTRY METHOD 06/27/2025 9:08 AM [facility] Creatinine 0.82 0.50 - 1.10 mg/dL LAB CHEMISTRY METHOD 06/27/2025 9:08 AM [facility] eGFR 86 >=60 mL/min/1. 73m2 LAB CHEMISTRY METHOD 06/27/2025 9:08 AM [facility] Comment:Calculation based on the Chronic Kidney Disease Epidemiology Collaboration (CKD-EPI) equation refit without adjustment for race. BUN/Creatinine Ratio 12.2 LAB CHEMISTRY METHOD 06/27/2025 9:08 AM [facility] Calcium 9.4 8.5 - 10.5 mg/dL LAB CHEMISTRY METHOD 06/27/2025 9:08 AM [facility] AST (SGOT) 22 10 - 42 unit/L LAB CHEMISTRY METHOD 06/27/2025 9:08 AM [facility] ALT (SGPT) 30 10 - 60 unit/L LAB CHEMISTRY METHOD 06/27/2025 9:08 AM [facility] Alkaline Phosphatase 99 42 - 121 unit/L LAB CHEMISTRY METHOD 06/27/2025 9:08 AM [facility] Total Protein 7.6 6.0 - 8.0 g/dL LAB CHEMISTRY METHOD 06/27/2025 9:08 AM [facility] Albumin 4.1 3.2 - 5.0 g/dL LAB CHEMISTRY METHOD 06/27/2025 9:08 AM [facility] Total Bilirubin 0.3 0.0 - 1.4 mg/dL LAB CHEMISTRY METHOD 06/27/2025 9:08 AM [facility] Blood Venous blood specimen / Unknown Venipuncture / Unknown 06/27/2025 7:34 AM EDT 06/27/2025 8:36 AM EDT us Melody DIANE LAB BLOOD ORDERABLES Fin al Result [facility] [address] [place] [address], from Last 3 Months Insurance MEDICAID - [place] Care Teams Beer Still Runner Compounder Relationship Specialty Start Date End Date Mikala Borges MD [address] [place] [phone] PCP - General Family Medicine 06/27/25
--- OUTSIDE RECORDS SUMMARY | 2025-07-20 08:12 | XMS_ITS | Clinical Summary ---
Author Organization [facility] Address [address] [place] [phone] Phone Care Team Providers Care Machinist Apprentice Name Role Phone Pcp, Unknown Primary Care [...] topic Medical Devices Not on file Insurance [facility] C[employer] [facility] [employer] A[employer] Care Teams Machinist Apprentice Relationship Specialty Start Date End Date Pcp, Unknown PCP - General 05/24/22 Additional Source Comments The information contained in this document represents components of the legal health record. It is not the complete legal health record.[facility]
--- OUTSIDE RECORDS SUMMARY | 2025-07-20 08:12 | XMS_ITS | Encounter Summary ---
Author Organization [facility] Address [address] [place] [address] Phone Care Team Providers Care Security Operations Manager Name Role Phone Pcp, Unknown Primary Care Provider Unavailabl e Encounter Details Date Type Department Care Team (Late st Contact Info) Description 05/24/2022 Procedure Pass [facility], Ct Scan - [address] [address] Social History Tobacco Use Types Packs/Day Years [...] 5:17 PM EDT Talia Patel, RN * [place] Suicide Severity Rating Scale (Screener/Recent Self-Report) Question [...] on filedocumented in this encounter Care Teams Security Operations Manager Relationship Specialty Start Date End Date Pcp, Unknown PCP - General 05/24/22 documented as of this encounter Additional Source Comments The information contained in this document represents components of the legal health record. It is not the complete legal health record.[facility]
== END 2025-07-20 08:02 | disposition home or self-care (01) ==
LOC: HO.MRI 08:01
PROVIDERS: PCP Family Medicine; Visit Provider Nurse Practitioner
DX: M54.14 Radiculopathy, thoracic region (principal); M54.17 Radiculopathy, lumbosacral region; M54.6 Pain in thoracic spine
CPT/HCPCS: 72146

== ENCOUNTER 2025-08-24 10:39 | Outpatient (REF) | payer MEDICAID, SELFPAY ==
--- NOTE | ~2025-08-24 | XR_ITS ---
EXAMINATION: XR KNEE, LEFT CLINICAL INFORMATION: left knee pain, medial, swelling. No accident. COMPARISON: None available. TECHNIQUE: Three views of the left knee. FINDINGS: No acute fracture. Small suprapatellar joint fluid. Alignment is anatomic. No significant joint space narrowing. Small patellar marginal spur.. No abnormal soft tissue calcification. XR/XR knee LT 3V IMPRESSION: No acute osseous findings. Small suprapatellar joint fluid.. Electronically signed by: Ugo Kelsey MD 08/24/2025 11:03 AM EDT
--- OUTSIDE RECORDS SUMMARY | 2025-08-24 10:00 | XMS_ITS | Encounter Summary ---
Author Organization [employer] Address [address] [place] [address] [address] [place] [address] Care Team Providers Care Religion Department Chair Name Role Phone Mikala Borges MD Primary Care Provider [phone] Sherrie Etienne RN Unavailable [phone] Willow Hernandez Unavailable Encounter Details Date Type Department Care Team (Latest Contact Info) Description 08/24/2025 10:00 AM EDT Office Visit [facility] [address], [place] [phone] Mikala Borges MD [address] [place] [address] Elevated BP without diagnosis of hypertension (Primary Dx); Prediabetes; Fibromyalgia; Primary osteoarthritis of left knee; Trochanteric bursitis of right hip; Chronic bilateral low back pain with right-sided sciatica; Encounter for immunization; Chronic pain of left knee; Acute pain of left knee Social History Tobacco Use Types Packs/Day Years Used Date Smoking Tobacco: Never Passive Smoke Exposure: Never Smokeless Tobacco: Never Alcohol Use Standard Drinks/Week Comments Never 0 (1 standard drink = 0.6 oz pur e alcohol) Depression Answer Date Recorded Patient Health Questionnaire-9 Score 1 08/24/2025 Patient Health Questionnaire-9 Score 1 08/24/2025 Last PHQ-9: Questionnaire Data Not on file [...] the past 12 months, has t he [employer], gas, oil or water company threatened to shut off services in your home? No 10/24/2024 Depression Answer Date Recorded Patient Health Questionnaire-2 Score 0 08/24/2025 Internet Access Answer Date Recorded Internet Access [...] Answer Date of Assessment Author Patient Health Questionnaire -2 Score 0 08/24/2025 9:55 AM Dianna Decker [place] * Little interest or pleasure in doing things Answer Date of Assessment Author Not at all 08/24/2025 9:55 AM Haylee Decker [place] * Feeling down, depressed, or hopeless Answer Date of Assessment Author Not at all 08/24/2025 9:55 AM Haylee Decker [place] * Trouble falling or staying asleep, or sleeping too much Answer Date of Assessment Author Not at all 08/24/2025 9:55 AM Haylee Decker [place] * Feeling tired or having little energy Answer Date of Assessment Author Not at all 08/24/2025 9:55 AM Haylee Decker [place] * Poor appetite or overeating Answer Date of Assessment Author Not at all 08/24/2025 9:55 AM Haylee Decker [place] * Feeling bad about yourself - or that you are a failure or have let yourself or your family down Answer Date of Assessment Author Not at all 08/24/2025 9:55 AM Haylee Decker [place] * Trouble concentrating on things, such as reading the newspaper or watching television Answer Date of Assessment Author Several days 08/24/2025 9:55 AM Haylee Decker MA * Moving or speaking so slowly that other people could have noticed? Or the opposite - being so fidgety or restless that you have been moving around a lot more than usual. Answer Date of Assessment Author Not at all 08/24/2025 9:55 AM Haylee Decker MA * Thoughts that you would be better off or hurting yourself in some way Answer Date of Assessment Author Not at all 08/24/2025 9:55 AM Haylee Decker MA * Patient Health Questionnaire-9 Score Answer Date of Assessment Author 1 08/24/2025 9:55 AM Haylee Decker MA * How difficult have these problems made it for you to do your work, take care of things at home, or get along with other people? Answer Date of Assessment Author Not difficult at all 08/24/2025 9:55 AM Haylee Vasquez MA * Over the last 2 weeks, how often have you been bothered by any of the following problems? Question Answer Date of Assessment Author Feeling nervous, anxious, or on edge 0 08/24/2025 9:55 AM Dianna Decker MA Not being able to stop or control worrying 0 08/24/2025 9:55 AM Dianna Decker MA Worrying too much about different things 0 08/24/2025 9:55 AM Dianna Decker MA Trouble relaxing 0 08/24/2025 9:55 AM Haylee Barton MA Being so restless that it is hard to sit still 0 08/24/2025 9:55 AM Dianna Decker MA Becoming easily annoyed or irritable 0 08/24/2025 9:55 AM Dianna Decker MA Feeling afraid as if somethi ng awful might happen 0 08/24/2025 9:55 AM EDT Dianna Etienne MA JOAO-7 Total Score 0 08/24/2025 9:55 AM EDT Haylee Etienne MA documented as of this encounter Plan of Treatment Not on file documented as of this encounter Procedures Procedure Name Priority Date/Time Associated Diagnosis Comments XR KNEE 3 VIEWS LEFT Routine 08/24/2025 10:53 AM EDT Chronic pain of left knee documented in this encounter Results * XR Knee 3 Views Left (08/24/2025 10:53 AM EDT) Anatomical Region Laterality Modality Lower Extremities, Knee Left Radiogra phic Imaging 08/24/2025 10:5 3 AM EDT Narrative 08/24/2025 11:06 AM EDT [address] [address] XRay Report Signed Patient: Carmelina Etienne MR#: [id number] : 1970 Acct:[id number] Age/Sex: 55 / F ADM Date: 08/24/25 Loc: HO.HHCX Attending Dr: Mikala Borges MD Ordering Physician: Mikala Borges MD Date of Service: 08/24/25 Procedure(s): XR knee LT 3V Accession Number(s): [id number] cc: Mikala Borges MD Reason for Exam: left knee pain, medial, swelling. No accident. EXAMINATION: XR KNEE, LEFT CLINICAL INFORMATION: left knee pain, medial, swelling. No accident. COMPARISON: None available. TECHNIQUE: Three views of the left knee. FINDINGS: No acute fracture. Small suprapatellar joint fluid. Alignment is anatomic. No significant joint space narrowing. Small patellar marginal spur.. No abnormal soft tissue calcification. XR/XR knee LT 3V IMPRESSION: No acute osseous findings. Small suprapatellar joint fluid.. Electronically signed by: Ugo Kelsey MD 08/24/2025 11:03 AM EDT Dictated By: Ugo Kelsey MD Signed By: <Electronically signed by Ugo Kelsey MD in OV> 08/24/25 1103 DD/ 1053 TD/TT: 08/24/251053 Perinatal Director: GABBY Procedure Note Donotuseinterpreter, Image - 08/24/[address] [address] XRay Report Signed Patient: Carmelina Etienne EMR#: [id number] : 1970Acct:[id number] Age/Sex: 55 / FADM Date: 08/24/25 Loc: HO.HHCX Attending Dr: Mikala Borges MD Ordering Physician: Mikala Borges MD Date of Service: 08/24/25 Procedure(s): XR knee LT 3V Accession Number(s): [id number] cc: Mikala Borges MD Reason for Exam: left knee pain, medial, swelling. No accident. EXAMINATION: XR KNEE, LEFT CLINICAL INFORMATION: left knee pain, medial, swelling. No accident. COMPARISON: None available. TECHNIQUE: Three views of the left knee. FINDINGS: No acute fracture. Small suprapatellar joint fluid. Alignment is anatomic. No significant joint space narrowing. Small patellar marginal spur.. No abnormal soft tissue calcification. XR/XR knee LT 3V IMPRESSION: No acute osseous findings. Small suprapatellar joint fluid.. Electronically signed by: Ugo Kelsey MD 08/24/2025 11:03 AM EDT Dictated By: Ugo Kelsey MD Signed By: <Electronically signed by Ugo Kelsey MD in OV> 08/24/25 1103 DD/ 1053 TD/TT: 08/24/251053 Perinatal Director: GABBY Mikala Borges MD IMG XR PROCEDURES Edited Result - Final documented in this encounter Visit Diagnoses Diagnosis Elevated BP without diagnosis of hypertension- Primary Prediabetes Other abnormal glucose Fibromyalgia Unspecified myalgia and myositis Primary osteoarthritis of left knee Trochanteric bursitis of right hip Chronic bilateral low back pain with right-sided sciatica Encounter for immunization Chronic pain of left knee Acute pain of left knee documented in this encounter Additional Health Concerns Assessment Noted Time PHQ-9 Depression Total Score: 1 08/24/20 25 9:55 AM EDT documented as of this encounter Care Teams Religion Department Chair Relationship Specialty Start Date End Date Mikala Borges MD [address] [place] [address] PCP - General Family Medicine 10/29/18 Sherrie Etienne, ALBERTO [address] [place] [address] Registered Nurse Family Medicine 06/30/25 Willow Hernandez 06/30/25 Good [facility] Pediatric NurseDesign Studio Consultant 07/31/25 documented as of this encounter
--- OUTSIDE RECORDS SUMMARY | 2025-08-24 13:06 | XMS_ITS | Encounter Summary ---
Author Organization [employer] Address [address] [place] [address] 7 [place] [address] Care Team Providers Care Home Insurance Agent Name Role Phone Mikala Borges MD Primary Care Provider [phone] Sherrie Etienne RN Unavailable [phone] Sherrie Etienne RN Unavailable [phone] Willow Hernandez Unavailable Reason for Visit * Reason Comments Med Refill Encounter Details Date Type Department Care Team (Late st Contact Info) Description 03/31/2023 Refill [facility] MEDICINE [address] [place], [place] [phone] Reinier Monroy MD [address] [place], [place] [phone] Other insomnia Social History Tobacco Use Types [...] insomnia documented in this encounter Care Teams Home Insurance Agent Relationship Specialty Start Date End Date Mikala Borges MD [address] [place] [address] PCP - General Family Medicine 10/29/18 Sherrie Etienne RN [address] [place] [address] Auto Battery BuilderRevenue Enforcement Agent 10/03/24 01/04/25 Sherrie Etienne RN [address] [place] [address] Registered Nurse Family Medicine 06/30/25 Willow Hernandez 06/30/25 Good Arana Auto Battery BuilderRevenue Enforcement Agent 07/31/25 documented as of this encounter
--- OUTSIDE RECORDS SUMMARY | 2025-08-24 13:06 | XMS_ITS | Encounter Summary ---
Author Organization [employer] Address [address] [place] [address] 7 [place] [address] Care Team Providers Care Drawing Kiln Supervisor Name Role Phone Mikala Borges MD Primary Care Provider [phone] Sherrie Etienne RN Unavailable [phone] Sherrie Etienne RN Unavailable [phone] Willow Hernandez Unavailable Reason for Referral * Consultation (Routine) - Closed Specialty Diagnoses / Procedures Referred By Montserrat t Referred To Contact Orthopaedic Surgery Diagnoses Chronic bilateral low back pain with right-sided sciatica Bulging lumbar disc Mikala Borges MD [address] [place] [address] Phone: tel: fax: [facility] [address] [place] [address] Phone: tel: fax: Referral ID Status Reason Start Date Expiration Date V isits Requested Visits Authorized [id number] Closed Specialty Services Required 04/09/2024 04/09/2025 10 10 Encounter Details Date Type Department Care Team (Late st Contact Info) Description 04/03/2024 Orders Only [facility] MEDICINE [address] [place] [address] Mikala Borges MD [address] [place], [place] [phone] Chronic bilateral low back pain with right-sided [...] Results * Referral to Orthopaedic Surgery (12/31/2024) us Mikala Borges MD OUTPATIENT REFERRAL ORDERABLES F inal Result * XR KUB and Upright 2 Views (04/02/2024 8:29 AM EDT) Anatomical Region Laterality Modality Radiographic Winnie ging 04/02/2024 8:29 AM EDT Narrative 04/15/2024 3:36 PM EDT [address] [address] XRay Report Signed Patient: Carmelina Etienne MR#: [id number] : 1970 Acct:[id number] Age/Sex: 53 / F ADM Date: 04/02/24 Loc: JOCELYN Attending Dr: Malissa Wilson MD Ordering Physician: Malissa Wilson MD Date of Service: 04/02/24 Procedure(s): XR KUB Accession Number(s): [id number] cc: Malissa Wilson MD; Mikala Borges MD [...] in OV> 04/15/24 1532 DD/ 0829 TD/TT: Truck Hopper: SS Procedure Note Donotuseinterpreter, Image - 04/15/[address] [address] XRay Report Signed Patient: Carmelina Etienne EMR#: [id number] : 1970Acct:[id number] Age/Sex: 53 / FADM Date: 04/02/24 Loc: HO.XRAY Attending Dr: Malissa Wilson MD Ordering Physician: Malissa Wilson MD Date of Service: 04/02/24 Procedure(s): XR KUB Accession Number(s): [id number] cc: Malissa Wilson MD; Mikala Borges MD [...] in OV> 04/15/24 1532 DD/ 0829 TD/TT: Truck Hopper: SS [facility] External Provider IMG XR PROCEDURES Final Result documented in this encounter Visit Diagnoses Diagnosis Chronic bilateral low back pain with right-sided sciatica- Primary Bulging lumbar disc documented in this encounter Additional Health Concerns Assessment Noted Time PHQ-9 Depression Total Score: 0 01/22/20 24 12:57 PM EDT documented as of this encounter Care Teams Drawing Kiln Supervisor Relationship Specialty Start Date End Date Mikala Borges MD [address] [place] [address] PCP - General Family Medicine 10/29/18 Sherrie Etienne RN [address] [place] [address] Telephone Quotation ClerkTechnician'S Helper 10/03/24 01/04/25 Sherrie Etienne RN [address] [place] [address] [place] [address] Registered Nurse Family Medicine 06/30/25 Willow Hernandez 06/30/25 Good Arana Telephone Quotation ClerkTechnician'S Helper 07/31/25 documented as of this encounter
--- OUTSIDE RECORDS SUMMARY | 2025-08-24 13:06 | XMS_ITS | Encounter Summary ---
Author Organization [employer] Address [address] [place] [address] 7 [place] [address] Care Team Providers Care Vending Machine Coin Collector Name Role Phone Mikala Borges MD Primary Care Provider [phone] Sherrie Etienne RN Unavailable [phone] Sherrie Etienne RN Unavailable [phone] Willow Hernandez Unavailable Reason for Referral * Imaging (Routine) - Closed Specialty Diagnoses / Procedures Referred By Contac t Referred To Contact Radiology Diagnoses Chronic bilateral low back pain without sciatica Procedures MR Lumbar Spine w/o Contrast Mikala Borges MD [address] [place] [address] Phone: tel: fax: [address] Phone: tel: fax: Referral ID Status Reason Start Date Expiration Date Visits Re quested Visits Authorized [id number] Closed 02/05/2024 02/04/2025 1 1 Encounter Details Date Type Department Care Team (Late st Contact Info) Description 02/05/2024 Orders Only [facility] MEDICINE [address] [place] [address] Mikala Borges MD [address] [place], [place] [phone] Chronic bilateral low back pain without sciatica [...] AM EDT Narrative 03/25/2024 9:26 AM EDT [address] [address] Magnetic Resonance Report Signed Patient: Carmelina Etienne MR#: [id number] : 1970 Acct:[id number] Age/Sex: 53 / F ADM Date: 03/05/24 Loc: HO.MRI Attending Dr: Mikala Borges MD Ordering Physician: Mikala Borges MD Date of Service: 03/05/24 Procedure(s): MR lumbar spine wo con Accession Number(s): [id number] cc: Mikala Borges MD EXAMINATION: MR LUMBAR [...] in OV> 03/25/24 0922 DD/ 1014 TD/TT: Linter Saw Sharpener: SUNI Procedure Note Donotuseinterpreter, Image - 03/25/[address] [address] Magnetic Resonance Report Signed Patient: Carmelina Etienne EMR#: [id number] : 1970Acct:[id number] Age/Sex: 53 / FADM Date: 03/05/24 Loc: HO.MRI Attending Dr: Mikala Borges MD Ordering Physician: Mikala Borges MD Date of Service: 03/05/24 Procedure(s): MR lumbar spine wo con Accession Number(s): [id number] cc: Mikala Borges MD EXAMINATION: MR LUMBAR [...] spine. No canal stenosis. Dictated By: Dilip Botoh MD Signed By: <Electronically signed by Dilip Booth MD in OV> 03/25/24 0922 DD/ 1014 TD/TT: Linter Saw Sharpener: Mikala Borges MD IMG MRI PROCEDURES Edited Result - Final documented in this encounter Visit Diagnoses Diagnosis Chronic bilateral low back pain without sciatica- Primary documented in this encounter Additional Health Concerns Assessment Noted Time PHQ-9 Depression Total Score: 0 01/22/20 24 12:57 PM EDT documented as of this encounter Care Teams Vending Machine Coin Collector Relationship Specialty Start Date End Date Mikala Borges MD [address] [place] [address] PCP - General Family Medicine 10/29/18 Sherrie Etienne RN [address] [place] [address] Doctor Podiatric MedicineUtility Operator 10/03/24 01/04/25 Sherrie Etienne RN [address] [place] [address] Registered Nurse Family Medicine 06/30/25 Willow Hernandez 06/30/25 Good Arana Doctor Podiatric MedicineUtility Operator 07/31/25 documented as of this encounter
--- OUTSIDE RECORDS SUMMARY | 2025-08-24 13:06 | XMS_ITS | Encounter Summary ---
Author Organization [employer] Address [address] [facility] 7t [place] [address] Care Team Providers Care Insurance Coordinator Name Role Phone Mikala Borges MD Primary Care Provider [phone] Sherrie Etienne RN Unavailable [phone] Willow Hernandez Unavailable Encounter Details Date Type Department Care Team (Latest Contact Info) Description 08/24/2025 Travel Social History Tobacco Use Types Packs/Day [...] t he electric, gas, oil or water [employer] threatened to shut off services in your [...] awful might happen 0 08/24/2025 9:55 AM Dianna Decker MA JOAO-7 Total Score 0 08/24/2025 9:55 AM Haylee Decker MA documented as of this encounter Plan of Treatment Not on file documented as of this encounter Visit Diagnoses Not on filedocumented in this encounter Additional Health Concerns Assessment Noted Time PHQ-9 Depression Total Score: 1 08/24/20 9:55 AM EDT documented as of this encounter Care Teams Insurance Coordinator Relationship Specialty Start Date End Date Mikala Borges MD 230 [place] [address] PCP - General Family Medicine 10/29/18 Sherrie Etienne, ALBERTO 505 [place] [address] Registered Nurse Family Medicine 06/30/25 Willow Hernandez 06/30/25 Good Arana Drill Rig Operator HelperPopulation Geneticist 07/31/25 documented as of this encounter
--- OUTSIDE RECORDS SUMMARY | 2025-08-24 13:06 | XMS_ITS | Encounter Summary ---
Author Organization [employer] Address [address] [place] [address] 7 [place] [address] Care Team Providers Care Precipitation Equipment Tender Name Role Phone Mikala Borges MD Primary Care Provider [phone] Sherrie Etienne RN Unavailable [phone] Sherrie Etienne RN Unavailable [phone] Willow Hernandez Unavailable Reason for Visit * Reason Comments Med Refill Encounter Details Date Type Department Care Team (Late st Contact Info) Description 01/21/2024 Refill [facility] MEDICINE 230 [place], [place] [phone] Mikala Borges MD 230 [place], [place] [phone] Other insomnia Social History Tobacco Use Types [...] down Not at all 01/22/2024 12:57 PM Alyssa Rodriguez MA Trouble concentrating on things, such as reading the newspaper or watching television Not at all 01/22/2024 12:57 PM Alyssa Rodriguez MA Moving or speaking so slowly that other people could have noticed? Or the opposite - being so fidgety or restless that you have been moving around a lot more than usual. Not at all 01/22/2024 12:57 PM EDT Alyssa Eldridge MA Thoughts that you would be better off or hurting yourself in some way Not at all 01/22/2024 12:57 PM MICHAELT Alyssa Siegel MA Patient Health Questionnaire-9 Score 0 01/22/2024 12:57 PM MICHAELT Alyssa Marcum MA documented as of this encounter Plan of Treatment Not on file documented as of this encounter Visit Diagnoses Diagnosis Other insomnia documented in this encounter Care Teams Precipitation Equipment Tender Relationship Specialty Start Date End Date Mikala Borges MD [address] [place] [address] PCP - General Family Medicine 10/29/18 Sherrie Etienne RN [address] [place] [address] Lease BuyerRoute Rider 10/03/24 01/04/25 Sherrie Etienne RN [address] [place] [address] Registered Nurse Family Medicine 06/30/25 Willow Hernandez 06/30/25 Good Arana Lease BuyerRoute Rider 07/31/25 documented as of this encounter
--- OUTSIDE RECORDS SUMMARY | 2025-08-24 13:06 | XMS_ITS | Encounter Summary ---
Author Organization [employer] Address [address] [place] [address] 7t [place] [address] Care Team Providers Care Laborer Demolition Name Role Phone Mikala Borges MD Primary Care Provider [phone] Sherrie Etienne RN Unavailable [phone] Sherrie Etienne RN Unavailable [phone] Willow Hernandez Unavailable Encounter Details Date Type Department Care Team (Late st Contact Info) Description 08/03/2023 Abstract [facility] MEDICINE [address] [place], [place] [phone] Mikala Borges MD [address] [place], [place] [phone] Social History Tobacco Use Types Packs/Day Years [...] on filedocumented in this encounter Care Teams Laborer Demolition Relationship Specialty Start Date End Date Mikala Borges MD [address] [place] [address] PCP - General Family Medicine 10/29/18 Sherrie Etienne RN [address] [place] [address] Microfilm MounterRefrigeration Mechanic Helper 10/03/24 01/04/25 Sherrie Etienne RN [address] [place] [address] Registered Nurse Family Medicine 06/30/25 Willow Hernandez 06/30/25 Good Arana Microfilm MounterRefrigeration Mechanic Helper 07/31/25 documented as of this encounter
--- OUTSIDE RECORDS SUMMARY | 2025-08-24 13:06 | XMS_ITS | Encounter Summary ---
Author Organization [employer] Address [address] [place] [address] 7 [place] [address] Care Team Providers Care Flight Steward Name Role Phone Mikala Borges MD Primary Care Provider [phone] Sherrie Etienne RN Unavailable [phone] Willow Hernandez Unavailable Reason for Visit * Reason Onset Date Comments chart prep 08/21/2025 Encounter Details Date Type Department Care Team (Late st Contact Info) Description 08/21/2025 Telephone [facility] MEDICINE 230 [place], [place] [phone] Mikala Borges MD [address] [place], [place] [phone] chart prep Social History Tobacco Use Types Packs/Day Years [...] encounter Miscellaneous Notes * Telephone Encounter - Mai Stephenson MA - 08/21/2025 1:42 PM EDT Chart Prep Labs: not applicable Images: mammo appointment 01/01/26 10am [facility] Referrals: GI appointment 10/08/25 3pm, Uro 05/10/26 10:15am [facility] Vaccines due: Flu and Zoster Screenings: not applicable Overdue care gaps: PHQ-9 and JOAO-7 documented in this encounter Plan of Treatment Not on file documented as of this encounter Visit Diagnoses Not on filedocumented in this encounter Additional Health Concerns Assessment Noted Time PHQ-9 Depression Total Score: 6 08/12/20 24 1:10 PM EDT documented as of this encounter Care Teams Flight Steward Relationship Specialty Start Date End Date Mikala Borges MD [address] [place] [address] PCP - General Family Medicine 10/29/18 Sherrie Etienne RN [address] [place] [address] Registered Nurse Family Medicine 06/30/25 Willow Hernandez 06/30/25 Good Arana Printer Slotter OperatorArchitectural Examiner 07/31/25 documented as of this encounter
--- OUTSIDE RECORDS SUMMARY | 2025-08-24 13:06 | XMS_ITS | Encounter Summary ---
Author Organization [employer] Address [address] [place] [address] 7 [place] [address] Care Team Providers Care Skating Rink Manager Name Role Phone Miklaa Borges MD Primary Care Provider [phone] Sherrie Etienne RN Unavailable [phone] Sherrie Etienne RN Unavailable [phone] Willow Hernandez Unavailable Encounter Details Date Type Department Care Team (Late st Contact Info) Description 12/29/[address] [facility] ADULT DENTAL [address] [place] [address] Deuce Baird, DMD 230 [place], [place] [phone] Social History Tobacco Use Types Packs/Day Years [...] on filedocumented in this encounter Care Teams Skating Rink Manager Relationship Specialty Start Date End Date Mikala Borges MD 230 [place] [address] PCP - General Family Medicine 10/29/18 Sherrie Etienne RN [address] [place] [address] Machine AttendantResearch And Development Researcher 10/03/24 01/04/25 Sherrie Etienne RN [address] [place] [address] Registered Nurse Family Medicine 06/30/25 Willow Hernandez 06/30/25 Good Arana Machine AttendantResearch And Development Researcher 07/31/25 documented as of this encounter
--- OUTSIDE RECORDS SUMMARY | 2025-08-24 13:06 | XMS_ITS | Encounter Summary ---
Author Organization [employer] Address [address] [place] [address] 7 [place] [address] Care Team Providers Care Hospitality Intern Name Role Phone Mikala Borges MD Primary Care Provider [phone] Sherrie Etienne RN Unavailable [phone] Willow Hernandez Unavailable Reason for Visit * Reason Onset Date Comments Med Refill 08/06/2025 Encounter Details Date Type Department Care Team (Late st Contact Info) Description 08/06/2025 Telephone [facility] MEDICINE 230 [place], [place] [phone] Mikala Borges MD [address] [place], [place] [phone] Med Refill Social History Tobacco Use Types Packs/Day Years [...] encounter Miscellaneous Notes * Telephone Encounter - Marvin Roy - 08/06/2025 10:46 AM EDT TC from pt requesting medication refill. Medications needing refill : traMADol (Ultram) 50 MG tablet To be sent to: [facility] - [place], [place] - [address] [place] [address] documented in this encounter Plan of Treatment Not on file documented as of this encounter Visit Diagnoses Not on filedocumented in this encounter Additional Health Concerns Assessment Noted Time PHQ-9 Depression Total Score: 6 08/12/20 24 1:10 PM EDT documented as of this encounter Care Teams Hospitality Intern Relationship Specialty Start Date End Date Mikala Borges MD [address] [place] [address] PCP - General Family Medicine 10/29/18 Sherrie Etienne RN [address] [place] [address] Registered Nurse Family Medicine 06/30/25 Willow Hernandez 06/30/25 Good Arana Electro TechYacht Hand 07/31/25 documented as of this encounter
--- OUTSIDE RECORDS SUMMARY | 2025-08-24 13:06 | XMS_ITS | Encounter Summary ---
Author Organization [employer] Address [address] [place] [address] 7 [place] [address] Care Team Providers Care Welding Machine Operator/Tender Name Role Phone Mikala Borges MD Primary Care Provider [phone] Sherrie Etienne RN Unavailable [phone] Sherrie Etienne RN Unavailable [phone] Willow Hernandez Unavailable Reason for Visit * Reason Onset Date Comments Appointment Request 07/13/2023 Encounter Details Date Type Department Care Team (Late st Contact Info) Description 07/13/2023 Telephone [facility] MEDICINE 230 [place], [place] [phone] Mikala Borges MD [address] [place], [place] [phone] Appointment Request Social History Tobacco Use Types [...] on filedocumented in this encounter Care Teams Welding Machine Operator/Tender Relationship Specialty Start Date End Date Mikala Borges MD [address] [place] [address] PCP - General Family Medicine 10/29/18 Sherrie Etienne RN 505 [place] [address] Sand ScreenerCasting Machine Service Operator 10/03/24 01/04/25 Sherrie Etienne RN [address] [place] [address] Registered Nurse Family Medicine 06/30/25 Willow Hernandez 06/30/25 Good Arana Sand ScreenerCasting Machine Service Operator 07/31/25 documented as of this encounter
--- OUTSIDE RECORDS SUMMARY | 2025-08-24 13:07 | XMS_ITS ---
Author Organization [employer] Address [address] [place] [address] 7 [place] [address] Care Team Providers Care Transitional Care Nurse Name Role Phone Mikala Borges MD Primary Care Provider [phone] Sherrie Etienne RN Unavailable [phone] Willow Hernandez Unavailable [facility] Status:Outreach In Progress (Enrolling) Start date:06/30/2025 Enrollment reason:ADT Feed Overview ADT- [facility] ED 06/27/25. Please outreach for enrollment. Case Team Name Relationship Phone Willow Hernandez(Responsible Staff) [phone] Continued Care and Services Coordination
--- OUTSIDE RECORDS SUMMARY | 2025-08-24 13:07 | XMS_ITS | Clinical Summary ---
Author Organization [employer] Address [address] [place] [address] [address] [place] [address] Care Team Providers Care Outboard Motor Inspector Name Role Phone Mikala Borges MD Primary Care Provider [phone] Sherrie Etienne RN Unavailable [phone] Willow Hernandez Unavailable Allergies Active Allergy Reactions Criticality Noted Date Comments Citalopram 11/21/2013 Olanzapine Other reaction(s): unspecified Paroxetine 02/26/2014 Paroxetine Hcl 05/24/2022 Valproic Acid 11/21/2013 Medications ibuprofen 600 MG tablet Take 1 tablet by mouth in the morning and 1 tablet at noon and 1 tablet in the evening. 022 Active linaCLOtide (Linzess) 72 MCG capsule Take 1 capsule by mouth. Active pantoprazole (ProtoNix) 40 MG EC tablet Take 1 tablet by mouth every 12 (twelve) hours. 022 Active cetirizine (ZyrTEC) 10 MG tabletIndications :Allergic rhinitis due to other allergic trigger, unspecified seasonality TAKE 1 TABLET BY MOUTH EVERY DAY 90 tablet 1 023 Active melatonin 3 MG tablet TAKE 1 TO 2 TABLETS BY MOUTH 2 HOURS BEFORE BEDTIME NEEDED FOR SLEEP 60 tablet 024 Active montelukast (Singulair) 10 MG tabletIndications :Moderate persistent asthma without complication TAKE 1 TABLET BY MOUTH EVERY EVENING 90 tablet 3 025 Active Blood Pressure kit 1 each 2 times daily. 1 kit 025 2025 Active albuterol 108 (90 Base) MCG/ACT inhaler Inhale 2 puffs every 4 (four) hours if needed for shortness of breath or wheezing. 18 g 3 025 Active Spacer/Aero-Holdi ng Chambers (OptiChamber Graciela) misc 1 each every 4 (four) hours if needed (asthma). 1 each Active Diclofenac Sodium 1 % gelIndications:[place] pain of left knee Apply 4 g topically if needed in the morning, at noon, and at bedtime (pain). 100 g Active Advair HFA 230-21 MCG/ACT inhalerIndication s:Moderate persistent asthma without complication INHALE 2 PUFFS BY MOUTH TWICE DAILY IN THE MORNING AND IN THE EVENING. RINSE MOUTH AFTER USING. 12 g 11 Active cholecalciferol (Vitamin D-3) 25 MCG tablet TAKE 1 TABLET BY MOUTH EVERY MORNING 90 tablet 3 Active dicyclomine (Bentyl) 20 MG tablet Take 1 tablet by mouth 2 times daily. Active ketorolac (Toradol) 10 MG tablet TAKE 1 TABLET BY MOUTH EVERY 8 HOURS NEEDED FOR PAIN FOR 3 DAYS Active LORazepam (Ativan) 1 MG tablet TAKE 1 TABLET BY MOUTH 1 HOUR BEFORE PROCEDURE Active metoclopramide (Reglan) 5 MG tablet TAKE 1 TABLET BY MOUTH THREE TIMES DAILY AND TAKE 2 TABLETS BY MOUTH AT BEDTIME Active ondansetron ODT (Zofran-ODT) 4 MG disintegrating tablet DISSOLVE 1 TABLET BY MOUTH EVERY 6 HOURS NEEDED FOR NAUSEA AND VOMITING Active pregabalin (Lyrica) 100 MG capsule Take 100 mg by mouth at bedtime. Active pyridoxine (Vitamin B-6) 100 MG tablet Take 100 mg by mouth in the morning. Active sucralfate (Carafate) 1 g tablet Take 1 tablet by mouth every 6 (six) hours during the day. Active tiZANidine (Zanaflex) 4 MG tabletIndications :Chronic bilateral low back pain with right-sided sciatica Take 1 tablet (4 mg) by mouth at bedtime. 30 tablet 3 025 Active estradiol (Estrace) 0.1 MG/GM vaginal cream USE 1 GRAM VAGINALLY TWICE A WEEK THEREAFTER 42.5 g 025 Active traMADol (Ultram) 50 MG tabletIndications :Chronic bilateral low back pain with right-sided sciatica Take 1 tablet (50 mg) by mouth if needed at bedtime for severe pain. 15 tablet 025 Active acetaminophen (Tylenol) 500 MG tabletIndications :Acute pain of left knee Take 1-2 tablets by mouth every 8 hours as needed for pain or fever 100 tablet 1 025 Active acetaminophen (Tylenol) 500 MG tabletIndications :Acute pain of left knee Take 1-2 tablets by mouth every 8 hours as needed for pain or fever 100 tablet 1 025 2024 Discontinued(R eorder (will not trigger notification to Pharmacy)) traMADol (Ultram) 50 MG tabletIndications :Chronic bilateral low back pain with right-sided sciatica Take 1 tablet (50 mg) by mouth if needed at bedtime for severe pain. 15 tablet 025 2024 Discontinued(R eorder (will not trigger notification to Pharmacy)) Active Problems Problem Noted Date Diagnosed Date [...] will prescribe Meloxicam - upcoming appointment with medicare specialist - home back exercise as tolerated [...] will prescribe Meloxicam - upcoming appointment with medicare specialist - home back exercise as tolerated [...] AM EDT): -Hgb A1C > 5.9% since 201907/12/22 A1C 6.2% -Pt has been receiving multiple steroid injection for pain management -Continue working on lifestyle modifications -Diabetes screen q6-12 mo. Assessment & Plan (08/11/2023 6:45 PM EDT): -Hgb A1C > 5.9% since 201907/12/22 A1C 6.2% -Pt has been receiving multiple steroid injection for pain management -Continue working on lifestyle modifications -Diabetes screen q6-12 mo. Assessment & Plan (04/16/2023 12:43 PM EDT): -Hgb A1C > 5.9% since 201907/12/22 A1C 6.2% -Pt has been receiving multiple steroid injection for pain management -Continue working on lifestyle modifications -Diabetes screen q6-12 mo. Assessment & Plan (10/22/2022 6:45 AM EST): -Hgb A1C > 5.9% since 201907/12/22 A1C 6.2% -Pt has been receiving multiple steroid injection for pain management -Continue working on lifestyle modifications -Diabetes screen q6-12 mo. Contact dermatitis 09/29/2022 History of renal calculi 09/29/2022 Status post laparoscopic appendectomy 09/29/2022 Chronic pain 09/20/2015 Assessment & Plan (07/09/2025 6:18 AM EDT): - participated chronic pain group - patient does not want to take medication that is addictive - will continue with muscle relaxant, non-pharmacological treatment - retry PT - check any opportunity for clinical study Difficulty sleeping 02/02/2015 Assessment & Plan (04/16/2024 [...] 06/17/2014 Trochanteric bursitis 06/17/2014 Assessment & Plan (07/09/2025 6:16 AM EDT): Patient is not interested in steroid injections as this time and recommended to try Home-Stretching exercises Assessment & Plan (08/12/2024 4:01 PM EDT): Patient is not interested in steroid injections as this time and recommended to try Home-Stretching exercises Assessment & Plan (04/05/2023 1:13 PM EDT): Patient is not interested in steroid injections as this time and recommended to try Home-Stretching exercises Eczema 05/14/2013 Assessment & Plan (08/11/2023 6:45 PM EDT): -[place] moisturization with Eucerin or Cetaphil. -Use unscented, hypoallergenic skin care products. -Judicious use of topical steroid cream in moderate-severe areas of eczema. -avoid irritants -keep nails short Assessment & Plan (04/05/2023 1:32 PM EDT): -[place] moisturization with Eucerin or Cetaphil. -Use unscented, hypoallergenic skin care products. -Judicious use of topical steroid cream in moderate-severe areas of eczema. -avoid irritants -keep nails short Chronic urticaria 02/26/2013 Recurrent kidney stones 02/26/2013 Assessment & Plan (08/12/2024 4:01 PM EDT): -Following with [facility], last seen in [...] Plan (04/16/2024 11:55 AM EDT): -Following with [facility], last seen in [...] Plan (08/11/2023 6:42 PM EDT): -Following with [facility], last seen in [...] Plan (04/16/2023 12:42 PM EDT): -Following with [facility] -Most recent kidney [...] with Neurologist Fibromyalgia 06/26/2012 Assessment & Plan (07/09/2025 6:17 AM EDT): -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 Most recently prescribed cyclobenzaprine. She has tried many different muscle relaxants including tizanidine, methocarbamol, and baclofen. She wants to try tizanidine again. -Referred to chronic pain group; attended once. 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 Pt has tried cyclobenzaprine, Methocarbamol, and baclofen. 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 Pt has tried cyclobenzaprine, Methocarbamol, and baclofen. 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 Pt has tried cyclobenzaprine, Methocarbamol, and baclofen. 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 Pt has tried cyclobenzaprine, Methocarbamol, and baclofen. 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 Pt has tried cyclobenzaprine, Methocarbamol, and baclofen. 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 Pt has tried Tizanidine and Methocarbamol. We agreed to try different muscle relaxants. -will try Baclofen 25 mg at bedtime, as needed -Judicious use of NSAIDs and APAP -Continue spinal stimulator Sprint. 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 -Judicious use of NSAIDs and APAP -Continue spinal stimulator Sprint. Gastroesophageal reflux disease without esophagi tis 06/26/2012 Assessment & Plan (12/17/2024 9:03 AM EST): -Followed by [facility], last seen in March 2024 -Continue pantoprazole Assessment & Plan (04/16/2024 11:49 AM EDT): -Followed by [facility], last seen in March 2024 -Continue pantoprazole Assessment & Plan (02/04/2024 8:47 AM EDT): -Followed by [facility], last seen on 03/22/23 -Continue pantoprazole Assessment & Plan (08/11/2023 6:41 PM EDT): -Followed by [facility], last seen on 03/22/23 -Continue pantoprazole Assessment & Plan (04/05/2023 1:19 PM EDT): -Followed by [facility], last seen on 03/22/23 -Continue pantoprazole Assessment & Plan (10/22/2022 6:32 AM EST): -Followed by [facility], last seen on 08/15/22 -Continue pantoprazole Migraine [...] PM EDT): -Followed by pain management in [facility] -MRI in 2020 at [facility]: Only very minimal degenerative changes, without [...] PM EDT): -Followed by pain management in [facility] -MRI in 2020 at [facility]: Only very minimal degenerative changes, without [...] AM EDT): -Followed by pain management in [facility] -MRI in 2020 at [facility]: Only very minimal degenerative changes, without [...] PM EDT): -Followed by pain management in [facility] -Treatment Hx: TENS, MBB, and muscle relaxants; peripheral nerve stimulation Sprint system in Sep 2022 - Oct 2022, removed due to ineffectiveness -continue APAP prn; judicious use of NSAIDs prn; adding baclofen prn Assessment & Plan (04/16/2023 12:45 PM EDT): -Followed by pain management in [facility] -Treatment Hx: TENS, MBB, and muscle relaxants; peripheral nerve stimulation Sprint system in Sep 2022 - Oct 2022, removed due to ineffectiveness -continue APAP prn; judicious use of NSAIDs prn; adding baclofen prn Assessment & Plan (10/22/2022 6:31 AM EST): -Followed by pain management in [facility] -Treatment Hx: TENS, MBB, and muscle relaxants -s/p implantation of peripheral nerve stimulation Sprint system Acute maxillary sinusitis 09/29/2022 Rash 09/29/2022 06/17/2025 Encounters Date Type Department Care Team Description 08/24/2025 10:00 AM EDT Office Visit [facility] [address] [place] [id number] Mikala Borges MD Elevated BP without diagnosis of hypertension (Primary Dx); Prediabetes; Fibromyalgia; Primary osteoarthritis of left knee; Trochanteric bursitis of right hip; Chronic bilateral low back pain with right-sided sciatica; Encounter for immunization; Chronic pain of left knee; Acute pain of left knee 08/24/2025 Travel 08/21/[address] [address] Mikala Borges MD chart prep 08/06/2025 Refill [facility] [address] [place] [address] Angie Giron RN Chronic bilateral low back pain with right-sided sciatica 08/06/[address] [address] Mikala Borges MD Med Refill 07/31/2025 Telephone [facility] [address] [place] [address] Mikala Borges MD Care Coordination (ICP Care Plan) 07/20/2025 Orders Only [facility] External Provider, [facility] 07/20/[address] [address] Sameer Zimmerman CNM 07/09/2025 Patient Outreach [address] [address] Mikala Borges MD Care Management (C3CM- initial assessment/ enrollment. lvm) 07/07/2025 Patient Outreach [address] [address] Mikala Borges MD Care Coordination (CM/CHW outreach) 07/06/2025 Patient Outreach [address] [address] Mikala Borges MD Care Management (C3CM- initial assessment/ enrollment. lvm) 07/06/2025 Patient Outreach [address] [address] Mikala Borges MD 07/01/2025 11:15 AM EDT Office Visit [address] [address] Mikala Borges MD Chronic bilateral low back pain with right-sided sciatica (Primary Dx); Chronic pain syndrome; Fibromyalgia; Trochanteric bursitis of right hip 07/01/2025 Patient Outreach [address] [address] Mikala Borges MD 07/01/2025 Travel 06/30/2025 Patient Outreach [address] [address] Mikala Borges MD Care Coordination (CM/CHW outreach) 06/30/2025 Patient Outreach [address] [address] Mikala Borges MD Care Coordination (CHW chart review) 06/30/[address] [address] Mikala Borges MD ER Follow-up 06/30/2025 Patient Outreach [address] [address] Mikala Borges MD Care Management ([facility]- chart review) 06/30/2025 Patient Outreach [address] [address] Mikala Borges MD 06/19/2025 Travel 06/15/2025 11:00 AM EDT Office Visit [address] [address] Heather Zuluaga MD Chronic bilateral low back pain with right-sided sciatica (Primary Dx); Fibromyalgia; Primary osteoarthritis of left knee; Chronic pain syndrome 06/15/2025 Travel 06/12/[address] [address] Mikala Borges MD chart prep 06/01/2025 Travel from Last 3 Months Immunizations Immunization Administration Dates Next Due Hep B, adult 04/23/2025,12/17/2024 Influenza injectable quadrivalent preservative f ree 08/24/2021,11/06/2018 Influenza, High Dose Seasonal, Preservative Free 10/17/2017 Influenza, IIV3, injectable 07/13/2011, 9 Influenza, Split (incl. purified surface antigen ) 07/09/2013,06/26/2012 Influenza, seasonal, injectable, preservative fr ee 08/24/2025,08/12/2024 Moderna Covid-19 Vaccine 12+ 03/30/2021,05/05/20 21 Pneumococcal Conjugate PCV 20 08/12/2024 TD [...] the past 12 months, has t he [employer], gas, oil or water company threatened to [...] 07/01/2025 10:54 AM EDT Plan of Treatment Health Maintenance Due Date Last Done Comments CT Colonography 1972 FIT DNA/Cologuard 1970 FIT 1972 FOBT 1970 Sigmoidoscopy 1970 Zoster Vaccines (2 of 2) 08/14/2022 06/19/2022 Dental Oral Exam 05/30/2024 11/29/2023 Dental Prophylaxis 05/30/2024 11/29/2023 Dental X-Ray: Bitewings 11/30/2024 11/29/2023 Hepatitis B Vaccines (3 of 3 - 19+ 3-dose series) 06/18/2025 04/23/2025, 12/17/2024 COVID-19 Vaccine ( - 2024- season) 2025 03/30/2021, 03/02/2021 SDOH Screening 12/01/2025 12/01/2024 Diabetes: Hemoglobin A1C 12/17/2025 025, 01/22/2024, 04/05/2023, Additional history exists Alcohol/Substance Use Screening 04/23/2026 04/23/2025 Disability Screening 04/23/2026 04/23/2025 Depression Screening 08/24/2026 08/24/2025, 08/24/20 Tobacco Screening 08/24/2026 08/24/2025 Dental X-Ray: Full Mouth 11/30/2026 11/29/2023 Mammogram 01/08/2027 01/08/2025, 12/27, 08/02/2021, Additional history exists Lipid Panel 12/17/2029 12/17/2024, 12/28, 04/05/2023, Additional history exists DTaP/Tdap/Td Vaccines (3 - Td or Tdap) 08/24/2031 08/24/2021, 07/13/2011, 09/23/2001 Colonoscopy 05/02/2033 05/02/2023 Colorectal Cancer Screening 05/02/2033 RSV Patients and Patients Aged 60 years or older (1 - 1-dose 75+ series) 2047 Pneumococcal Vaccine: 50+ Years Completed 08/12/2024 Influenza Vaccine Completed 08/24/2025, , 08/24/2021, Additional history exists HIB Vaccines Aged Out No longer eligi [...] AM EDT Chronic pain of left knee MR THORACIC SPINE WO CONTRAST Routine 07/20/2025 8:10 AM EDT AMB REFERRAL TO PHYSICAL THERAPY Routine 07/15/2025 Chronic bilateral low back pain with right-sided sciatica XR THORACIC SPINE 2 VIEWS Routine 06/17/2025 12:33 PM EDT BI US BREAST LIMITED BILATERAL [...] Relevant to Health Maintenance Results * XR Knee 3 Views Left (08/24/2025 10:53 AM EDT) Anatomical Region Laterality Modality Lower Extremities, Knee Left Radiogra phic Imaging 08/24/2025 10:5 3 AM EDT Narrative 08/24/2025 11:06 [place] [address] XRay Report Signed Patient: Carmelina Etienne MR#: [id number] : 1970 Acct:[id number] Age/Sex: 55 / F ADM Date: 08/24/25 Loc: HO.HHCX Attending Dr: Mikala Borges MD Ordering Physician: Mikala Borges MD Date of Service: 08/24/25 Procedure(s): XR knee LT 3V Accession Number(s): [id number] cc: Mikala Borges MD Reason for Exam: [...] Ugo Kelsey MD 08/24/2025 11:03 AM EDT RP Dictated By: Ugo Kelsey MD Signed By: <Electronically signed by Ugo Kelsey MD in OV> 08/24/25 1103 DD/ 1053 TD/TT: 08/24/25 1054 Program Developer: GABBY Procedure Note Donotuseinterpreter, Image - 08/24/[address] [address] XRay Report Signed Patient: Carmelina Etienne EMR#: [id number] : 1970Acct:[id number] Age/Sex: 55 / FADM Date: 08/24/25 Loc: HO.HHCX Attending Dr: Mikala Borges MD Ordering Physician: Mikala Borges MD Date of Service: 08/24/25 Procedure(s): XR knee LT 3V Accession Number(s): [id number] cc: Mikala Borges MD Reason for Exam: [...] Ugo Kelsey MD 08/24/2025 11:03 AM EDT RP Dictated By: Ugo Kelsey MD Signed By: <Electronically signed by Ugo Kelsey MD in OV> 08/24/25 1103 DD/ 1053 TD/TT: 08/24/25 1054 Program Developer: GABBY Mikala Borges MD IMG XR PROCEDURES Edited Result - Final * MR Thoracic Spine w/o Contrast (07/20/2025 8:10 AM EDT) Anatomical Region Laterality Modality Spine, T-spine Magnetic Resonan ce 07/20/2025 8:10 AM EDT Narrative 07/20/2025 11:04 AM EDT [address] [address] Magnetic Resonance Report Signed Patient: Carmelina Etienne MR#: [id number] : 1970 Acct:[id number] Age/Sex: 55 / F ADM Date: 07/20/25 Loc: HO.MRI Attending Dr: Geeta ROWE Ordering Physician: Geeta Olsen Date of Service: 07/20/25 Procedure(s): MR thoracic spine wo con Accession Number(s): [id number] cc: Geeta Olsen; Mikala Borges MD Reason for Exam: M54.14 - Radiculopathy, thoracic region FINDINGS: MR THORACIC SPINE WITH CONTRAST CLINICAL INFORMATION: Thoracic radiculopathy. Mid back pain, wraps around left side to abdomen. Symptoms x6 months. COMPARISON: None TECHNIQUE: Multiplanar multisequence MR imaging of the thoracic spine was done without IV contrast. Standard sequences were utilized. Examination performed on a 1.5 Jacqueline Siemens high-field unit. FINDINGS: ALIGNMENT: There is a mild right convex scoliosis, apex at T5-6. There is a normal thoracic kyphosis. There is no subluxation. VERTEBRAL BODIES AND BONE MARROW: There is no fracture, compression deformity, bone marrow edema, or suspicious infiltrating abnormal bone marrow signal. There is no malalignment. DISCS: There is mild diffuse loss of disc signal without significant loss of disc height. PARASPINAL SOFT TISSUES: There is no abnormal paraspinous or paravertebral edema or abnormal fluid collection. The aorta is nonaneurysmal. The kidneys appear normal. There are no pleural effusions. SPINAL CORD: There is a subtle dorsal flattening of the thoracic cord at the T5 level, spanning to the upper T6 level, with prominent CSF signal posterior to this region. The findings are suggestive of an underlying arachnoid cyst dorsal to the cord. (Series 16, image 10; series 21, images 22-25). There is no cord signal abnormality. The cord is otherwise normal in caliber. The conus terminates at L1 and is normal in signal and morphology. SPINAL LEVELS: C7-T1: There is no central canal or neural foraminal narrowing. Normal facets. T1-T2: There is no central canal or neural foraminal narrowing. Normal facets. T2-T3: There is no central canal or neural foraminal narrowing. Normal facets. T3-T4: There is no central canal or neural foraminal narrowing. There is mild bilateral facet degeneration. T4-T5: There is no central canal or neural foraminal narrowing. There is mild bilateral facet degeneration. T5-T6: There is no central canal or neural foraminal narrowing. Dorsal impression upon the thoracic cord with widened CSF space dorsally as discussed above. There is mild bilateral facet degeneration. T6-T7: There is a left lateral tiny disc protrusion without significant mass effect. There is otherwise no central canal or neural foraminal narrowing. There is mild bilateral facet degeneration. T7-T8: There is a tiny left paracentral and lateral disc protrusion without significant mass effect. There is no central canal or neural foraminal narrowing. Normal facets. T8-T9: There is no central canal or neural foraminal narrowing. Normal facets. T9-T10: There is no central canal or neural foraminal narrowing. Normal facets. T10-T11: There is no central canal or neural foraminal narrowing. There is mild bilateral facet degeneration. T11-T12: There is no central canal or neural foraminal narrowing. There is mild bilateral facet degeneration. T12-L1: There is no central canal or neural foraminal narrowing. There is mild bilateral facet degeneration. MR/MR thoracic spine wo con IMPRESSION: 1. Subtle dorsal impression upon the cord at the T5 level to the T6 level, suggestive of an underlying arachnoid cyst. There is minimal mass effect upon the cord at this level without underlying cord signal abnormality. 2. No additional significant central canal or neural foraminal narrowing at any level. 3. Mild disc degeneration and mild multilevel facet degeneration as described. Electronically signed by: Jesus Kendall MD 07/20/2025 11:01 AM EDT Dictated By: Jesus Kendall MD Signed By: <Electronically signed by Jesus Kendall MD in OV> 07/20/25 1101 DD/ 0810 TD/TT: 07/20/25 0820 Program Developer: Procedure Note Donotuseinterpreter, Image - 07/20/[address] [address] Magnetic Resonance Report Signed Patient: Carmelina Etienne EMR#: [id number] : 1970Acct:[id number] Age/Sex: 55 / FADM Date: 07/20/25 Loc: HO.MRI Attending Dr: Geeta ROWE Ordering Physician: Geeta Olsen Date of Service: 07/20/25 Procedure(s): MR thoracic spine wo con Accession Number(s): [id number] cc: Geeta Olsen; Mikala Borges MD Reason for Exam: M54.14 - Radiculopathy, thoracic region FINDINGS: MR THORACIC SPINE WITH CONTRAST CLINICAL INFORMATION: Thoracic radiculopathy. Mid back pain, wraps around left side to abdomen. Symptoms x6 months. COMPARISON: None TECHNIQUE: Multiplanar multisequence MR imaging of the thoracic spine was done without IV contrast. Standard sequences were utilized. Examination performed on a 1.5 Jacqueline Siemens high-field unit. FINDINGS: ALIGNMENT: There is a mild right convex scoliosis, apex at T5-6. There is a normal thoracic kyphosis. There is no subluxation. VERTEBRAL BODIES AND BONE MARROW: There is no fracture, compression deformity, bone marrow edema, or suspicious infiltrating abnormal bone marrow signal. There is no malalignment. DISCS: There is mild diffuse loss of disc signal without significant loss of disc height. PARASPINAL SOFT TISSUES: There is no abnormal paraspinous or paravertebral edema or abnormal fluid collection. The aorta is nonaneurysmal. The kidneys appear normal. There are no pleural effusions. SPINAL CORD: There is a subtle dorsal flattening of the thoracic cord at the T5 level, spanning to the upper T6 level, with prominent CSF signal posterior to this region. The findings are suggestive of an underlying arachnoid cyst dorsal to the cord. (Series 16, image 10; series 21, images 22-25). There is no cord signal abnormality. The cord is otherwise normal in caliber. The conus terminates at L1 and is normal in signal and morphology. SPINAL LEVELS: C7-T1: There is no central canal or neural foraminal narrowing. Normal facets. T1-T2: There is no central canal or neural foraminal narrowing. Normal facets. T2-T3: There is no central canal or neural foraminal narrowing. Normal facets. T3-T4: There is no central canal or neural foraminal narrowing. There is mild bilateral facet degeneration. T4-T5: There is no central canal or neural foraminal narrowing. There is mild bilateral facet degeneration. T5-T6: There is no central canal or neural foraminal narrowing. Dorsal impression upon the thoracic cord with widened CSF space dorsally as discussed above. There is mild bilateral facet degeneration. T6-T7: There is a left lateral tiny disc protrusion without significant mass effect. There is otherwise no central canal or neural foraminal narrowing. There is mild bilateral facet degeneration. T7-T8: There is a tiny left paracentral and lateral disc protrusion without significant mass effect. There is no central canal or neural foraminal narrowing. Normal facets. T8-T9: There is no central canal or neural foraminal narrowing. Normal facets. T9-T10: There is no central canal or neural foraminal narrowing. Normal facets. T10-T11: There is no central canal or neural foraminal narrowing. There is mild bilateral facet degeneration. T11-T12: There is no central canal or neural foraminal narrowing. There is mild bilateral facet degeneration. T12-L1: There is no central canal or neural foraminal narrowing. There is mild bilateral facet degeneration. MR/MR thoracic spine wo con IMPRESSION: 1. Subtle dorsal impression upon the cord at the T5 level to the T6 level, suggestive of an underlying arachnoid cyst. There is minimal mass effect upon the cord at this level without underlying cord signal abnormality. 2. No additional significant central canal or neural foraminal narrowing at any level. 3. Mild disc degeneration and mild multilevel facet degeneration as described. Electronically signed by: Jesus Kendall MD 07/20/2025 11:01 AM EDT Dictated By: Jesus Kendall MD Signed By: <Electronically signed by Jesus Kendall MD in OV> 07/20/25 1101 DD/ 0810 TD/TT: 07/20/25 0820 Program Developer: [facility] External Provider IMG MRI PROCEDURES Edited Result - Final * Referral to Physical Therapy (07/15/2025) Mikala Borges MD OUTPATIENT REFERRAL ORDERABLES F inal Result * XR Thoracic Spine 2 Views (06/17/2025 12:33 PM EDT) Anatomical Region Laterality Modality Spine, T-spine Radiographic Winnie ging 06/17/2025 12:3 3 PM EDT Narrative 06/17/2025 1:38 PM EDT [address] [address] XRay Report Signed Patient: Carmelina Etienne MR#: [id number] : 1970 Acct:[id number] Age/Sex: 55 / F ADM Date: 06/17/25 Loc: HO.XRAY Attending Dr: Geeta ROWE Ordering Physician: Geeta Olsen Date of Service: 06/17/25 Procedure(s): XR thoracic spine 2V Accession Number(s): [id number] cc: Geeta Olsen; Mikala Borges MD EXAMINATION: [...] 06/17/25 1335 DD/ 1233 TD/TT: 06/17/25 1253 Program Developer: Procedure Note Donotuseinterpreter, Image - 06/17/[address] [place] [address] XRay Report Signed Patient: Carmelina Etienne EMR#: [id number] : 1970Acct:[id number] Age/Sex: 55 / FADM Date: 06/17/25 Loc: HO.XRAY Attending Dr: Geeta ROWE Ordering Physician: Geeta Olsen Date of Service: 06/17/25 Procedure(s): XR thoracic spine 2V Accession Number(s): [id number] cc: Geeta Olsen; Mikala Borges MD EXAMINATION: [...] 06/17/25 1335 DD/ 1233 TD/TT: 06/17/25 1253 Program Developer: us [facility] External Provider IMG XR PROCEDURES Final Result * BI US Breast Limited Bilateral (01/08/2025 1:30 PM EDT) Anatomical Region Laterality Modality Breast Bilateral Ultrasound 01/08/2025 1:30 PM EDT Narrative 01/08/2025 2:09 PM EDT [address] [place] [address] Ultrasound Report Signed Patient: Carmelina Etienne MR#: [id number] : 1970 Acct:[id number] Age/Sex: 54 / F ADM Date: 01/08/25 Loc: HO.MAMMO Attending Dr: Mikala Borges MD Ordering Physician: SAMEER ZIMMERMAN CNM Date of Service: 01/08/25 Procedure(s): US breast BI limited mamm only Accession Number(s): [id number] cc: SAMEER ZIMMERMAN CNM EXAMINATION: MM DIAGNOSTIC [...] 01/08/25 1406 DD/ 1330 TD/TT: 01/08/25 1341 Program Developer: Procedure Note Donotuseinterpreter, Image - 01/08/2025 [facility] [address] [place] [address] [place] [address] Ultrasound Report Signed Patient: Carmelina Etienne EMR#: [id number] : 1970Acct:[id number] Age/Sex: 54 / FADM Date: 01/08/25 Loc: HO.MAMMO Attending Dr: Mikala Borges MD Ordering Physician: SAMEER ZIMMERMAN CNM Date of Service: 01/08/25 Procedure(s): US breast BI limited mamm only Accession Number(s): [id number] cc: SAMEER ZIMMERMAN CNM EXAMINATION: MM DIAGNOSTIC [...] DO 01/08/2025 02:06 PM EDT Dictated By: Nohmey Sebastian DO Signed By: <Electronically signed by Nohemy Sebastian DO in OV> 01/08/25 1406 DD/ 1330 TD/TT: 01/08/25 1341 Program Developer: us Sameer Zimmerman CNM IMG US PROCEDURES Edited Result - Final * (ABNORMAL) Lipid Panel with Reflex to Direct LDL (12/17/2024 10:50 AM EST) Triglycerides 73 <150 mg/dL [facility] Comment:Desirable Triglyceri de: less than 150 mg/dLBorderline High Triglyceride 150-199 mg/dLHigh Triglyceride: 200-499 mg/dLVery High Triglyceride: greater than or equal to 5OO mg/dL Cholesterol 190 <200 mg/dL [facility] Comment:Desirable Cholestero l: less than 200 mg/dLBorderline High Cholesterol: 200-239 mg/dLHigh Cholesterol: greater than 239 mg/dL LDL Cholesterol Calculated 118(H) <100 mg/dL [facility] Comment:Desirable LDL: less than 100 mg/dLNear Optimal/Above Optimal LDL: 110- 129 mg/dLBorderline High LDL: 130-159 mg/dLHigh LDL: 160-189 mg/dLVery High LDL: greater than or equal to 190 mg/dL HDL Cholesterol 58 >40 mg/dL [facility] Comment:Desirable HDL: great er than 40 mg/dL Note: This HDL assay may give artificially low results in patients with liver disease. Blood 12/17/2024 10:5 0 AM EST 12/17/2024 1:20 PM EST us Mikala Borges MD LAB BLOOD ORDERABLES Final Resul t [facility] [address] [place] [phone] * (ABNORMAL) Hemoglobin A1c (12/17/2024 10:50 AM EST) Hemoglobin A1c 6.2(H) <6.0 % [facility] Comment:Hemoglobin A1C Refer ence Range Adults: 4.8 - 6.0 % Non diabetic: < 6.0 % Goal: < 7.0 %Additional Action Suggested: > 8.0 %Note: Hemoglobin A1c results are invalid for patients with abnormal amounts of HbF. Blood transfusions may impact the HbA1c concentration in the patient sample. Estimated Average Glucose 131 mg/dL [facility] Comment:eAG = Estimated ave rage glucose which is %A1C expressed asaverage glucose, using the formula of the G1J-XjkikeiHjqwtvr Glucose study (ADAG), Diabetes Care, Vol.31,#8,2007 Blood Venous blood specimen / Unknown 12/17/2024 10:50 AM EST 12/17/2024 1:20 PM EST us Mikala Borges MD LAB BLOOD ORDERABLES Final Resul t Performing Organization Address City/State/[facility] Co de Phone Number [facility] [address] [place] [phone] * Hm Colonoscopy (05/02/2023) Colonoscopy Normal Normal us Lisa Sanchez MD HEALTH MAINTENANCE Final Result from Last 3 Months or Most Recently Relevant to Health Maintenance Insurance [facility] C[place] AD[place] Care Teams Outboard Motor Inspector Relationship Specialty Start Date End Date Mikala Borges MD [address] [place] [phone] PCP - General Family Medicine 10/29/18 Sherrie Etienne RN [address] [place] [phone] Registered Nurse Family Medicine 06/30/25 Willow Hernandez 06/30/25 Good Arana Personnel RepresentativeFront Desk Host 07/31/25
--- OUTSIDE RECORDS SUMMARY | 2025-08-24 13:07 | XMS_ITS ---
Author Organization [employer] Address [address] [place] [address] 7 [place] [address] Care Team Providers Care Developer Designer Name Role Phone Mikala Borges MD Primary Care Provider [phone] Sherrie Etienne RN Unavailable [phone] Willow Hernandez Unavailable CM Complex Status:Outreach In Progress (Enrolling) Start date:06/30/2025 Enrollment reason:ADT Feed [facility] Case Team Name Relationship Phone Sherrie Etienne RN(Responsible Staff) Registered Nurse [phone] Continued Care and Services Coordination
--- OUTSIDE RECORDS SUMMARY | 2025-08-24 13:07 | XMS_ITS | Encounter Summary ---
Author Organization [employer] Address [address] [place] [address] 7 [place] [address] Care Team Providers Care Culinary Chef Name Role Phone Mikala Borges MD Primary Care Provider [phone] Sherrie Etienne RN Unavailable [phone] Sherrie Etienne RN Unavailable [phone] Willow Hernandez Unavailable Reason for Referral * Imaging (Urgent) - Closed Specialty Diagnoses / Procedures Referred By Montserrat dawson Referred To Contact Radiology Diagnoses Breast pain Procedures BI US Breast Complete Right Joy Zimmerman CNM [address] [place] [address] Phone: tel: fax: [address] Phone: tel: fax: Referral ID Status Reason Start Date Expiration Date Visits Re quested Visits Authorized [id number] Closed 11/25/2024 11/25/2025 1 1 Encounter Details Date Type Department Care Team (Late st Contact Info) Description 11/25/2024 Orders Only [facility] [address] [place] [address] Joy Zimmerman CNM [address] [place], [place] [phone] Breast pain (Primary Dx) Social History Tobacco [...] as of this encounter Plan of Treatment Scheduled Orders Name Type Priority Associated Diagnoses [...] PM EDT Narrative 01/08/2025 2:09 PM EDT [facility] [address] [place] [address] Ultrasound Report Signed Patient: Carmelina Etienne MR#: [id number] : 1970 Acct:[id number] Age/Sex: 54 / F ADM Date: 01/08/25 Loc: HO.MAMMO Attending Dr: Mikala Borges MD Ordering Physician: JOY ZIMMERMAN CNM Date of Service: 01/08/25 Procedure(s): US breast BI limited mamm only Accession Number(s): [id number] cc: JOY ZIMMERMAN CNM EXAMINATION: MM DIAGNOSTIC [...] 01/08/25 1406 DD/ 1330 TD/TT: 01/08/25 1341 Fish Filleter: Procedure Note Donotuseinterpreter, Image - 01/08/2025 [facility] [address] [place] [address] Ultrasound Report Signed Patient: Carmelina Etienne EMR#: [id number] : 1970Acct:[id number] Age/Sex: 54 / FADM Date: 01/08/25 Loc: HO.MAMMO Attending Dr: Mikala Borges MD Ordering Physician: JOY ZIMMERMAN CNM Date of Service: 01/08/25 Procedure(s): US breast BI limited mamm only Accession Number(s): [id number] cc: JOY ZIMMERMAN CNM EXAMINATION: MM DIAGNOSTIC [...] Sebastian DO 01/08/2025 02:06 PM EDT RP Workstation: iconDial Dictated By: Nohemy Sebastian DO Signed By: <Electronically signed by Nohemy Sebastian DO in OV> 01/08/25 1406 DD/ 1330 TD/TT: 01/08/25 1341 Fish Filleter: us Joy Zimmerman CNM IM US PROCEDURES Edited Result - Final documented in this encounter Visit Diagnoses Diagnosis Breast pain- Primary Mastodynia documented in this encounter Additional Health Concerns Assessment Noted Time PHQ-9 Depression Total Score: 6 08/12/20 24 1:10 PM EDT documented as of this encounter Care Teams Culinary Chef Relationship Specialty Start Date End Date Mikala Borges MD [address] [place] [address] PCP - General Family Medicine 10/29/18 Sherrie Etienne RN [address] [place] [address] OcularistAdministrative Services Assistant 10/03/24 01/04/25 Sherrie Etienne RN [address] [place] [address] Registered Nurse Family Medicine 06/30/25 Willow Hernandez 06/30/25 Good Arana OcularistAdministrative Services Assistant 07/31/25 documented as of this encounter
--- OUTSIDE RECORDS SUMMARY | 2025-08-24 13:07 | XMS_ITS | Encounter Summary ---
Author Organization [employer] Address [address] [place] [address] 7 [place] [address] Care Team Providers Care Clinical Medical Assistant Name Role Phone Mikala Borges MD Primary Care Provider [phone] Sherrie Etienne RN Unavailable [phone] Sherrie Etienne RN Unavailable [phone] Willow Hernandez Unavailable Encounter Details Date Type Department Care Team (Latest Contact Info) Description 09/09/2021 Abstract [facility] CONVERSIONS Dental, Provider, DDS Social History [...] on filedocumented in this encounter Care Teams Clinical Medical Assistant Relationship Specialty Start Date End Date Mikala Borges MD [address] [place] [phone] PCP - General Family Medicine 10/29/18 Sherrie Etienne RN [address] [place] [address] Animal TrainerHigh Pressure Firer 10/03/24 01/04/25 Sherrie Etienne RN [address] [facility] [place] [address] Registered Nurse Family Medicine 06/30/25 Willow Hernandez 06/30/25 Good Arana Animal TrainerHigh Pressure Firer 07/31/25 documented as of this encounter
--- OUTSIDE RECORDS SUMMARY | 2025-08-24 13:07 | XMS_ITS | Clinical Summary ---
Author Organization [facility] Address [address] [place] [address] Phone Care Team Providers Care Product Handler Name Role Phone Mikala Borges MD Primary Care Provider [phone] Allergies Active Allergy Reactions Criticality Noted Date Comments Divalproex 06/27/2025 Paroxetine Hcl 06/27/2025 Olanzapine 06/27/2025 Medications methocarbamoL (ROBAXIN) 500 mg tablet Take 1 tablet (500 mg total) by mouth 2 (two) times a day for 10 days. 20 tablet 06/27/2025 Active Encounters Date Type Department Care Team Description 06/27/2025 7:40 AM EDT - 06/27/2025 2:[address] [facility] Emergency [address] [place] [address] Phoenix Lama MD Acute right-sided [...] Last Done Comments Breast Cancer Screening 1972 Colorectal Cancer Screening: Colonoscopy 1972 Cervical Cancer Screening: Pap Smear 1993 RSV Immunization Adult Patients (1 - Risk 50-74 years 1-dose series) 2022 Zoster Vaccines (2 of 2) 08/14/2022 06/19/2022 Depression Screening 10/29/2024 Hepatitis B Vaccines (3 of 3 - 19+ 3-dose series) 06/18/2025 04/23/2025, 12/17/2024 Cholesterol Screening (Lipid Panel) 06/27/2025 HIV Screening 06/27/2025 Hepatitis C Screening 06/27/2025 Social Influencers of Health Screening 06/27/2025 COVID-19 Vaccine (3 - season) 2025 03/30/2021, 03/02/2021 Influenza Vaccine [...] Signed Date: 06/27/2025 10:25 ET Workstation ID: [id number] Transcribed By: Self Edit Transcribed Date: 06/27/2025 [...] Signed Date: 06/27/2025 10:25 ET Workstation ID: [id number] Transcribed By: Self Edit Transcribed Date: 06/27/2025 [...] Signed Date: 06/27/2025 09:43 ET Workstation ID: [id number] Transcribed By: Self Edit Transcribed Date: 06/27/2025 [...] 0.3 cm nonobstructing upper pole right renal gisurpig19.1 cm from the skin. There is an [...] Signed Date: 06/27/2025 09:43 ET Workstation ID: [id number] Transcribed By: Self Edit Transcribed Date: 06/27/2025 09:32 ET Phoenix Lama MD [facility] [place]ED[place] Final Result * (ABNORMAL) Urinalysis with reflex microscopic and culture (06/27/2025 7:39 AM EDT) Specific [place] Urine 1.018 1.003 - 1.030 LAB URINALYSIS - AUTOMATED METHOD 06/27/2025 8:46 AM [facility] pH, Urine 6.5 5.0 - 8.0 pH LAB URINALYSIS - AUTOMATED METHOD 06/27/2025 8:46 AM [facility] Leukocytes, Urine Negative Negative LAB URINALYSIS - AUTOMATED METHOD 06/27/2025 8:46 AM [facility] Nitrite, Urine Negative Negative LAB URINALYSIS - AUTOMATED METHOD 06/27/2025 8:46 AM [facility] Protein, Urine Negative <=Trace mg/dL LAB URINALYSIS - AUTOMATED METHOD 06/27/2025 8:46 AM [facility] Glucose, Urine Negative Negative mg/dL LAB URINALYSIS - AUTOMATED METHOD 06/27/2025 8:46 AM [facility] Ketones, Urine Negative Negative mg/dL LAB URINALYSIS - AUTOMATED METHOD 06/27/2025 8:46 AM [facility] Urobilinogen, Urine 0.2 0.2 - 1.0 mg/dL LAB URINALYSIS - AUTOMATED METHOD 06/27/2025 8:46 AM [facility] Bilirubin, Urine Negative Negative LAB URINALYSIS - AUTOMATED METHOD 06/27/2025 8:46 AM [facility] Blood, Urine Small(A) Negative LAB URINALYSIS - AUTOMATED METHOD 06/27/2025 8:46 AM [facility] RBC, Urine 8.1(H) 0 - 4 /HPF LAB URINALYSIS - AUTOMATED METHOD 06/27/2025 8:46 AM [facility] WBC, Urine 0.9 0 - 4 /HPF LAB URINALYSIS - AUTOMATED METHOD 06/27/2025 8:46 AM [facility] Squamous Epithelial, Urine 16 0 - 60 /LPF LAB URINALYSIS - AUTOMATED METHOD 06/27/2025 8:46 AM [facility] Bacteria, Urine Negative Negative /HPF LAB URINALYSIS - AUTOMATED METHOD 06/27/2025 8:46 AM [facility] Hyaline Casts, Urine 0.8 0 - 3 /LPF LAB URINALYSIS - AUTOMATED METHOD 06/27/2025 8:46 AM [facility] Urine Urine specimen obtained by clean catch procedure / Unknown Non-blood Collection / Unknown 06/27/2025 7:39 AM EDT 06/27/2025 8:36 AM EDT us Melody [facility] LAB URINE ORDERABLES Fin al Result Performing Organization Address City/[facility]/ZIP Co de Phone Number [facility] [address] [place] [address], [place] [phone] * Adorno urine culture tube (06/27/2025 7:39 AM EDT) Extra Tube Hold for add-ons. 06/27/2025 10:01 AM EDT [facility] Comment:Auto resulted. Urine Urine specimen obtained by clean catch procedure / Unknown Non-blood Collection / Unknown 06/27/2025 7:39 AM EDT 06/27/2025 8:36 AM EDT Mel[facility] LAB URINE ORDERABLES Fin al Result Performing Organization Address [facility]/ZIP Co de Phone Number [facility] [address] [place] [address], [place] [phone] * CBC auto differential (06/27/2025 7:34 AM EDT) WBC 6.4 4.8 - 10.8 K/mcL LAB HEMETOLOGY METHOD 06/27/2025 8:45 AM EDT [facility] RBC 4.80 3.80 - 4.80 M/mcL LAB HEMETOLOGY METHOD 06/27/2025 8:45 AM EDT [facility] Hemoglobin 13.1 11.5 - 16.0 g/dL LAB HEMETOLOGY METHOD 06/27/2025 8:45 AM EDT [facility] Hematocrit 40.9 35.0 - 47.0 % LAB HEMETOLOGY METHOD 06/27/2025 8:45 AM EDT [facility] MCV 86.1 79.0 - 98.0 FL LAB HEMETOLOGY METHOD 06/27/2025 8:45 AM EDT [facility] MCH 27.6 27.0 - 32.0 pcg LAB HEMETOLOGY METHOD 06/27/2025 8:45 AM [facility] MCHC 32.0 32.0 - 37.0 g/dL LAB HEMETOLOGY METHOD 06/27/2025 8:45 AM [facility] RDW 13.5 11.0 - 15.0 % LAB HEMETOLOGY METHOD 06/27/2025 8:45 AM [facility] Platelets 334 130 - 400 K/mcL LAB HEMETOLOGY METHOD 06/27/2025 8:45 AM [facility] MPV 8.8 7.0 - 11.0 FL LAB HEMETOLOGY METHOD 06/27/2025 8:45 AM [facility] NRBC 0.0 <1.0 % LAB HEMETOLOGY METHOD 06/27/2025 8:45 AM [facility] NRBC Absolute 0.00 <0.10 K/mcL LAB HEMETOLOGY METHOD 06/27/2025 8:45 AM [facility] Neutrophils Relative 48.9 % LAB HEMETOLOGY METHOD 06/27/2025 8:45 AM [facility] Lymphocytes Relative 39.6 % LAB HEMETOLOGY METHOD 06/27/2025 8:45 AM [facility] Monocytes Relative 7.9 % LAB HEMETOLOGY METHOD 06/27/2025 8:45 AM [facility] Eosinophils Relative 2.8 % LAB HEMETOLOGY METHOD 06/27/2025 8:45 AM [facility] Basophils Relative 0.5 % LAB HEMETOLOGY METHOD 06/27/2025 8:45 AM [facility] Immature Granulocytes Relative 0.3 % LAB HEMETOLOGY METHOD 06/27/2025 8:45 AM [facility] Neutrophils Absolute 3.11 1.50 - 7.00 K/mcL LAB HEMETOLOGY METHOD 06/27/2025 8:45 AM EDT [facility] Lymphocytes Absolute 2.52 1.00 - 5.00 K/mcL LAB HEMETOLOGY METHOD 06/27/2025 8:45 AM EDT [facility] Monocytes Absolute 0.50 0.20 - 1.00 K/mcL LAB HEMETOLOGY METHOD 06/27/2025 8:45 AM EDT [facility] Eosinophils Absolute 0.18 0.00 - 0.50 K/[facility] LAB HEMETOLOGY METHOD 06/27/2025 8:45 AM EDT [facility] Basophils Absolute 0.03 0.00 - 0.20 K/[facility] LAB HEMETOLOGY METHOD 06/27/2025 8:45 AM EDT [facility] Immature Granulocytes Absolute 0.02 0.00 - 0.03 K/[facility] LAB HEMETOLOGY METHOD 06/27/2025 8:45 AM EDT [facility] Blood Venous blood specimen / Unknown Venipuncture / Unknown 06/27/2025 7:34 AM EDT 06/27/2025 8:36 AM EDT [facility] LAB BLOOD ORDERABLES Fin al Result [facility] [address] [place] [address], * Lipase (06/27/2025 7:34 AM EDT) Lipase 24 13 - 75 unit/L LAB CHEMISTRY METHOD 06/27/2025 9:07 AM EDT [facility] Blood Venous blood specimen / Unknown Venipuncture / Unknown 06/27/2025 7:34 AM EDT 06/27/2025 8:36 AM EDT Phoenix Lama MD LAB BLOOD ORDERABLES Final Res ult [facility] [address] [place] [address], * (ABNORMAL) Comprehensive metabolic panel (06/27/2025 7:34 AM EDT) Sodium 140 133 - 145 mmol/L LAB CHEMISTRY METHOD 06/27/2025 9:08 AM [facility] Potassium 4.2 3.5 - 5.5 mmol/L LAB CHEMISTRY METHOD 06/27/2025 9:08 AM [facility] Chloride 107 96 - 110 mmol/L LAB CHEMISTRY METHOD 06/27/2025 9:08 AM [facility] CO2 31 21 - 32 mmol/L LAB CHEMISTRY METHOD 06/27/2025 9:08 AM [facility] Anion Gap 2(L) 3 - 11 LAB CHEMISTRY METHOD 06/27/2025 9:08 AM [facility] Glucose 87 70 - 100 mg/dL LAB CHEMISTRY METHOD 06/27/2025 9:08 AM [facility] BUN 10 5 - 25 mg/dL LAB CHEMISTRY METHOD 06/27/2025 9:08 AM [facility] Creatinine 0.82 0.50 - 1.10 mg/dL LAB CHEMISTRY METHOD 06/27/2025 9:08 AM [facility] eGFR 86 >=60 mL/min/1. 73m2 LAB CHEMISTRY METHOD 06/27/2025 9:08 AM [facility] Comment:Calculation based on the Chronic Kidney Disease Epidemiology Collaboration (CKD-EPI) equation refit without adjustment for race. BUN/Creatinine Ratio 12.2 LAB CHEMISTRY METHOD 06/27/2025 9:08 AM [facility] Calcium 9.4 8.5 - 10.5 mg/dL LAB CHEMISTRY METHOD 06/27/2025 9:08 AM [facility] AST (SGOT) 22 10 - 42 unit/L LAB CHEMISTRY METHOD 06/27/2025 9:08 AM EDT [facility] ALT (SGPT) 30 10 - 60 unit/L LAB CHEMISTRY METHOD 06/27/2025 9:08 AM EDT [facility] Alkaline Phosphatase 99 42 - 121 unit/L LAB CHEMISTRY METHOD 06/27/2025 9:08 AM EDT [facility] Total Protein 7.6 6.0 - 8.0 g/dL LAB CHEMISTRY METHOD 06/27/2025 9:08 AM EDT [facility] Albumin 4.1 3.2 - 5.0 g/dL LAB CHEMISTRY METHOD 06/27/2025 9:08 AM EDT [facility] Total Bilirubin 0.3 0.0 - 1.4 mg/dL LAB CHEMISTRY METHOD 06/27/2025 9:08 AM EDT [facility] Blood Venous blood specimen / Unknown Venipuncture / Unknown 06/27/2025 7:34 AM EDT 06/27/2025 8:36 AM EDT [facility] LAB BLOOD ORDERABLES Fin al Result [facility] [address] [place] [address], from Last 3 Months Insurance MEDICAID - [place] Care Teams Product Handler Relationship Specialty Start Date End Date Mikala Borges MD [address] [place] [phone] PCP - General Family Medicine 06/27/25
== END 2025-08-24 10:40 | disposition home or self-care (01) ==
LOC: HO.HHCX 10:39
PROVIDERS: PCP Family Medicine; Visit Provider Family Medicine
DX: M25.562 Pain in left knee (principal); G89.29 Other chronic pain
CPT/HCPCS: 73562

== ENCOUNTER → 2025-08-24 10:42 | Outpatient (BNV) | payer MEDICAID, SELFPAY | PROVIDERS: PCP Family Medicine; Visit Provider Radiology Diagnostic Ultrasound | DX: M25.462 Effusion, left knee (principal) | CPT/HCPCS: 73562 ==